=== PATIENT | female | born 1990 | race Caucasian/White ===

== ENCOUNTER 2023-01-21 19:41 | Outpatient (REF) | payer MEDICAID, SELFPAY | END 2023-01-21 19:42 | disposition home or self-care (01) | LOC: LAB 19:41 | PROVIDERS: Visit Provider Nurse Practitioner Primary Care | DX: J02.9 Acute pharyngitis, unspecified (principal) | CPT/HCPCS: 87070 ==

== ENCOUNTER 2023-03-09 23:37 | Emergency (ER) | payer MEDICAID, SELFPAY ==
[2023-03-09 23:52] VITALS: BP 129/102; PULSE 96; RESP 16; TEMP 36.9; O2SAT 98; BMI 47.2
[2023-03-09 23:57] VITALS: O2SAT 99
[2023-03-09 23:58] VITALS: BP 129/102; O2SAT 99
[2023-03-10] VITALS: O2SAT 98
--- NOTE | 2023-03-10 00:03 | ED.PSYCH1 ---
HPI - Psych General Chief Complaint: Psychiatric Symptoms Stated Complaint: SUCICIAL THOUGHTS Time Seen by Provider: 03/10/23 00:01 Source: Reports patient Mode of arrival: walk-in History of Present Illness HPI Narrative: past history of depression. Receives injection of Abilify for depression. last injection about one month ago. States her left her and took the kids last week. Has been suicidal since last week. Denies overdose of street drugs MD complaint: suicidal ideation and feels depressed Related Data Home Medications Medication Instructions Recorded Confirmed albuterol sulfate 90 mcg/actuation inhalation 03/10/23 aerosol inhaler aripiprazole 400 mg suspension, mg IM 03/10/23 extended rel.intramuscular syringe (Abilifsaad [place]) escitalopram oxalate 10 mg tablet mg 03/10/23 ipratropium 0.5 mg-albuterol 3 mg ml inhalation 03/10/23 (2.5 mg base)/3 mL nebulization soln lamotrigine 25 mg tablet mg 03/10/23 Allergies Allergy/AdvReac Type Severity Reaction Status Date / Time latex Allergy Verified 03/10/23 00:00 metronidazole [From Flagyl] Allergy Verified 03/10/23 00:00 vancomycin Allergy Verified 03/10/23 00:00 Review of Systems ROS Status of ROS 10 or more systems reviewed and unremarkable except as noted in history and below PFSH PFSH Social History Smoking status: Current every day smoker Exam Constitutional Vital Signs, click to edit/add: Last Vital Signs Temp 98.4 F 03/09/23 23:52 Pulse 110 H 03/10/23 00:11 Resp 16 03/10/23 00:11 BP 129/102 H 03/09/23 23:58 Pulse Ox 98 03/10/23 00:00 O2 Del Method Room Air 03/09/23 23:52 Common normals: average body habitus, oriented x3, no limitations, healthy appearing, alert and well nourished Eye Common normals: EOMs intact bilaterally and conjunctivae normal Respiratory Common normals: normal respiratory effort, no retractions and no use of accessory muscles Cardio Common normals: regular rate, regular rhythm, S1 normal heart sound and S2 normal heart sound GI Common normals: Normal to inspection, nondistended, normoactive bowel sounds present, soft to palpation and non-tender Extremity Common normals: normal to inspection and full ROM Neuro Common normals: oriented x3, CN's II-XII intact bilaterally, moves all extremities and no focal motor deficits Psych Mood and affect: depressed mood Course Vital Signs Vital signs: Vital Signs Temperature 98.4 F 03/09/23 23:52 Pulse Rate 96 H 03/09/23 23:52 Respiratory Rate 16 03/09/23 23:52 Blood Pressure 129/102 H 03/09/23 23:52 Pulse Oximetry 98 03/09/23 23:52 Oxygen Delivery Method Room Air 03/09/23 23:52 Temperature 98.4 F 03/09/23 23:52 Pulse Rate 110 H 03/10/23 00:11 Respiratory Rate 16 03/10/23 00:11 Blood Pressure 129/102 H 03/09/23 23:58 Pulse Oximetry 98 03/10/23 00:00 Oxygen Delivery Method Room Air 03/09/23 23:52 MDM - Psych MDM Narrative Medical decision making narrative: patient has past history of depression. Her left her last week. She presents with thoughts of suicide. No plan. She did talk to mental health and will plan voluntary admission to in patient psychiatry for depression with suicidal thoughts Lab Data Labs: Lab Results 03/10/23 03/10/23 Range/Units 00:02 00:20 WBC 14.6 H (4.0-11.0) 10^3/uL RBC 4.73 (4.20-5.40) 10^6/uL Hgb 13.9 (12.0-16.0) g/dL Hct 40.9 (36.0-48.0) % MCV 86.5 (81.0-99.0) fL MCH 29.4 (26.7-34.0) pg MCHC 34.0 (29.9-35.2) g/dL RDW 13.2 (11.0-15.0) % Plt Count 365 (150-450) 10^3/uL MPV 10.0 (9.5-13.5) fL Neut % (Auto) 61.3 (43.0-75.0) % Lymph % (Auto) 29.9 (20.5-60.0) % [place] % (Auto) 5.6 (1.7-12.0) % Eos % (Auto) 2.5 (0.9-7.0) % Baso % (Auto) 0.3 (0.2-2.0) % Neut # (Auto) 9.0 H (1.4-6.5) 10^3/uL Lymph # (Auto) 4.4 H (1.2-3.8) 10^3/uL [place] # (Auto) 0.8 (0.3-0.8) 10^3/uL Eos # (Auto) 0.4 (0.0-0.7) 10^3/uL Baso # (Auto) 0.1 (0.0-0.1) 10^3/uL Abs Immat Gran (auto) 0.06 H (0.00-0.03) 10^3/uL Imm/Tot Granulo (auto) 0.4 (0.0-0.5) % Sodium 141 (136-145) mmol/L Potassium 3.5 (3.5-5.1) mmol/L Chloride 104 (98-107) mmol/L Carbon Dioxide 28.5 (21.0-32.0) mmol/L Anion Gap 12.0 BUN 12.0 (7.0-18.0) mg/dL Creatinine 0.88 (0.55-1.02) mg/dL Est GFR ( Amer) >60 (>=60) Est GFR (Non-Af Amer) >60 (>=60) BUN/Creatinine Ratio 13.6 Glucose 108 H (74-106) mg/dL Calcium 8.7 (8.5-10.1) mg/dL Total Bilirubin 0.3 (0.2-1.0) mg/dL AST 13 L (15-37) U/L ALT 18 (14-59) U/L Alkaline Phosphatase 82 (46-116) U/L Total Protein 7.1 (6.4-8.2) g/dL Albumin 3.3 L (3.4-5.0) g/dL Globulin 3.8 g/dL Albumin/Globulin Ratio 0.9 Salicylates 2.8 (<=19.9) mg/dL Urine Opiates Screen Negative (NEGATIVE) Ur Buprenorphine Scrn Negative (NEGATIVE) Ur Oxycodone Screen Negative (NEGATIVE) Urine Methadone Screen Negative (NEGATIVE) Ur Propoxyphene Screen Negative (NEGATIVE) Acetaminophen <2.0 L (10.0-30.0) ug/mL Ur Barbiturates Screen Negative (NEGATIVE) U Tricyclic Antidepress Negative (NEGATIVE) Ur Phencyclidine Scrn Negative (NEGATIVE) Ur Amphetamines Screen Negative (NEGATIVE) U Methamphetamines Scrn Negative (NEGATIVE) U Benzodiazepines Scrn Negative (NEGATIVE) Urine Cocaine Screen Negative (NEGATIVE) U Cannabinoids Screen Negative (NEGATIVE) Ethanol Quant <3 mg/dL Discharge Plan Discharge Chief Complaint: Psychiatric Symptoms Clinical Impression: Suicidal ideation, Depression Patient Disposition: Xfer Psychiatric Hosp Discharge Location: [facility] Discharge location: [address] [place] [address] Discharge Date/Time: 03/10/23 02:53
--- NOTE | 2023-03-10 00:06 | ECG_ITS ---
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
[2023-03-10 00:11] VITALS: PULSE 110; RESP 16
[2023-03-10 00:13] VITALS: PULSE 112
[2023-03-10 00:32] LABS: Basophils Absolute Auto 0.1 10^3/uL (0.0-0.1); Basophils Percent Auto 0.3 % (0.2-2.0); Eosinophils Absolute Auto 0.4 10^3/uL (0.0-0.7); Eosinophils Percent Auto 2.5 % (0.9-7.0); Hematocrit 40.9 % (36.0-48.0); Hemoglobin 13.9 g/dL (12.0-16.0); Immature Granulocytes Abs Auto 0.06 10^3/uL (0.00-0.03); Immature Granulocytes Pct Auto 0.4 % (0.0-0.5); Lymphocytes Absolute Auto 4.4 10^3/uL (1.2-3.8); Lymphocytes Percent Auto 29.9 % (20.5-60.0); Mean Corpuscular Hemoglobin 29.4 pg (26.7-34.0); Mean Corpuscular Volume 86.5 fL (81.0-99.0); Monocytes Absolute Auto 0.8 10^3/uL (0.3-0.8); Monocytes Percent Auto 5.6 % (1.7-12.0); Neutrophils Percent Auto 61.3 % (43.0-75.0); Platelet Count 365 10^3/uL (150-450); Red Blood Count 4.73 10^6/uL (4.20-5.40); Red Cell Distribution Width 13.2 % (11.0-15.0); White Blood Count 14.6 10^3/uL (4.0-11.0)
[2023-03-10 01:03] LABS: Alanine Aminotransferase 18 U/L (14-59); Albumin Globulin Ratio 0.9; Albumin Level 3.3 g/dL (3.4-5.0); Alkaline Phosphatase 82 U/L (46-116); Aspartate Amino Transferase 13 U/L (15-37); BUN Creatinine Ratio 13.6; Bilirubin Total 0.3 mg/dL (0.2-1.0); Calcium 8.7 mg/dL (8.5-10.1); Carbon Dioxide 28.5 mmol/L (21.0-32.0); Chloride 104 mmol/L (98-107); Estimated GFR (African America >60 (>=60); Estimated GFR (Non-African Ame >60 (>=60); Globulin 3.8 g/dL; Glucose 108 mg/dL (74-106); Potassium 3.5 mmol/L (3.5-5.1); Sodium 141 mmol/L (136-145); Total Protein 7.1 g/dL (6.4-8.2)
[2023-03-10 01:05] LABS: Amphetamine Screen Urine NEGATIVE (NEGATIVE); Barbiturates Screen Urine NEGATIVE (NEGATIVE); Benzodiazepines Screen Urine NEGATIVE (NEGATIVE); Buprenorphine Screen Urine NEGATIVE (NEGATIVE); Cannabinoid Screen Urine NEGATIVE (NEGATIVE); Cocaine Screen Urine NEGATIVE (NEGATIVE); Methadone Screen Urine NEGATIVE (NEGATIVE); Methamphetamines Screen Urine NEGATIVE (NEGATIVE); Opiate Screen Urine NEGATIVE (NEGATIVE); Oxycodone Screen Urine NEGATIVE (NEGATIVE); Phencyclidine Screen Urine NEGATIVE (NEGATIVE); Tricyclic Antidepressant Urine NEGATIVE (NEGATIVE)
[2023-03-10 01:29] LABS: Salicylate 2.8 mg/dL (<=19.9)
[2023-03-10 01:30] LABS: Ethanol <3 mg/dL
[2023-03-10 02:25] LABS: Acetaminophen <2.0 ug/mL (10.0-30.0)
== END 2023-03-10 02:53 ==
PROVIDERS: Emergency Provider Internal Medicine; PCP Nurse Practitioner Primary Care
DX: R45.851 Suicidal ideations (principal); F32.A Depression, unspecified; Z79.899 Other long term (current) drug therapy; F17.210 Nicotine dependence, cigarettes, uncomplicated
CPT/HCPCS: 36415; 80053; 80179; 80307; 80320; 80329; 85025; 93005; 99285

== ENCOUNTER 2024-02-03 22:03 | Emergency (ER) | payer SELFPAY ==
[2024-02-03] VITALS (8 sets, daily range): BP systolic 156; BP diastolic 89; PULSE 102–117; TEMP 36.8; O2SAT 92–97; BMI 46.1
--- NOTE | 2024-02-03 22:17 | ED.URI1 ---
HPI - URI/Sore Throat General Chief Complaint: Upper Respiratory Infection Stated Complaint: Upper Respiratory Infection Time Seen by Provider: 02/03/24 22:17 Source: patient Limitations: no limitations History of Present Illness HPI Narrative: This 33-year-old female with a history of asthma and tobacco use presents for evaluation of cough with productive sputum. She has been using her DuoNeb treatments with mild clinical improvement. She states her symptoms started last weekend with the sore throat and bodyaches. She was exposed to COVID-19. She had a sore throat which has resolved and her body aches have mostly resolved but she still has pain in the right side of her chest with deep breathing. She also has a diagnosis of thoracic outlet syndrome on the right and states she is having pain in her right arm. She states she is mostly concerned about the pain in her right arm because she cannot sleep due to it. There is no injury or weakness. She has no abdominal pain. She denies the possibility of . She has not had fever. 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 She does typically wear a mask but has recently been exposed to many people that have had COVID-19 and other respiratory infections. Related Data Home Medications ?Medication ?Instructions ?Recorded ?Confirmed albuterol sulfate 90 mcg/actuation inhalation 03/10/23 aerosol inhaler ipratropium 0.5 mg-albuterol 3 mg ml inhalation 03/10/23 (2.5 mg base)/3 mL nebulization soln Allergies Allergy/AdvReac Type Severity Reaction Status Date / Time latex Allergy Unknown Verified 02/03/24 22:12 metronidazole [From Flagyl] Allergy Unknown Verified 02/03/24 22:12 levofloxacin AdvReac Unknown Verified 02/03/24 22:12 vancomycin AdvReac Unknown Verified 02/03/24 22:12 Review of Systems ROS Status of ROS 10 or more systems reviewed and unremarkable except as noted in history and below PFSH PFSH Social History Smoking status: Current every day smoker Little interest or pleasure in doing things: not at all Feeling down, depressed, or hopeless: not at all Exam Narrative Exam Narrative: Vital signs and Nursing Notes reviewed: Patient is afebrile, she is tachycardic with a pulse of 113, blood pressure is elevated 156/89, she is not hypoxic with pulse ox of 97% on room air General: Awake, alert, oriented, nontoxic but uncomfortable appearing overweight female, she has a harsh spasmodic cough otherwise is able to speak in complete sentences HEENT: Normocephalic atraumatic, mucous membranes are moist and pink, eyes are clear, normal conjunctiva, vision is grossly intact, posterior pharynx is normal in appearance. Neck: Supple, no meningeal signs, no anterior or posterior cervical lymphadenopathy Chest: Harsh bronchospastic cough, lungs have bilateral expiratory wheezing, there is no accessory muscle use, when the patient is not coughing she is able to speak in complete sentences, pulse ox is normal at 97% on room air CVS: Regular rate and rhythm S1-S2, no murmurs rubs or gallops, pulses are brisk and equal bilaterally ABD: Soft, nondistended, nontender, no rebound guarding or rigidity, bowel sounds are normal, no pulsatile masses appreciated Extremities: Moving all extremities, no lower extremity tenderness or swelling noted, negative Homans' sign, pulses are brisk and equal bilaterally, 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, fingers are warm and sensate, pulses are brisk and equal bilaterally Skin: Normal in appearance without rash,pallor, petechiae or purpura Neuro: No focal deficits Constitutional Vital Signs, click to edit/add: Last Vital Signs Temp 98.3 F 02/03/24 22:08 Pulse 94 H 02/04/24 01:15 Resp 13 02/04/24 01:15 BP 105/84 02/04/24 01:15 Pulse Ox 97 02/04/24 01:10 O2 Del Method Room Air 02/03/24 23:44 Course Vital Signs Vital signs: Vital Signs Temperature 98.3 F 02/03/24 22:08 Pulse Rate 113 H 02/03/24 22:08 Respiratory Rate 20 02/03/24 22:08 Blood Pressure 156/89 H 02/03/24 22:08 Pulse Oximetry 96 02/03/24 22:08 Oxygen Delivery Method Room Air 02/03/24 22:08 Temperature 98.3 F 02/03/24 22:08 Pulse Rate 94 H 02/04/24 01:15 Respiratory Rate 13 02/04/24 01:15 Blood Pressure 105/84 02/04/24 01:15 Pulse Oximetry 97 02/04/24 01:10 Oxygen Delivery Method Room Air 02/03/24 23:44 MDM - URI/Sore Throat MDM Narrative Medical decision making narrative: This 34-year-old female, smoker with a history of asthma and lung surgery due to what sounds like an empyema or other infectious process but not cancer presents for evaluation of shortness of breath with a harsh cough and inability to catch her breath at times. She has pain in the right side of her chest with deep breathing. Her symptoms started 4 to 5 days ago after she was exposed to COVID-19. She initially had sore throat and bodyaches. Her sore throat and bodyaches resolved but the infection seem to have settled in her chest. 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 She states she has been admitted multiple times for bronchitis with hypoxia and pneumonia. In the emergency department she was noted to have a harsh bronchospastic cough and expiratory wheezing. She was given a DuoNeb, Toradol, and IV Solu-Medrol with clinical improvement. She was also given IV fluids. Cardiac workup was negative for acute findings. Her D-dimer and troponin were both normal. Her COVID-19 test is negative. Chest x-ray was negative for acute findings. On reevaluation she stated she was feeling remarkably better. She was discharged home with prescription for steroids and a Zithromax Z-RAQUEL to prevent her from getting a worsening respiratory infection or noncommitted and pneumonia. She does have a nebulizer and nebulizer medications at home and does not require refills on these medications. She was encouraged to quit smoking. Lab Data Labs: Lab Results 02/03/24 02/03/24 Range/Units 22:15 23:20 WBC 11.6 H (4.0-11.0) 10^3/uL RBC 4.51 (4.20-5.40) 10^6/uL Hgb 12.8 (12.0-16.0) g/dL Hct 38.8 (36.0-48.0) % MCV 86.0 (81.0-99.0) fL MCH 28.4 (26.7-34.0) pg MCHC 33.0 (29.9-35.2) g/dL RDW 13.2 (11.0-15.0) % Plt Count 333 (150-450) 10^3/uL MPV 10.0 (9.5-13.5) fL Neut % (Auto) 65.0 (43.0-75.0) % Lymph % (Auto) 22.4 (20.5-60.0) % [place] % (Auto) 4.8 (1.7-12.0) % Eos % (Auto) 6.8 (0.9-7.0) % Baso % (Auto) 0.7 (0.2-2.0) % Neut # (Auto) 7.5 H (1.4-6.5) 10^3/uL Lymph # (Auto) 2.6 (1.2-3.8) 10^3/uL [place] # (Auto) 0.6 (0.3-0.8) 10^3/uL Eos # (Auto) 0.8 H (0.0-0.7) 10^3/uL Baso # (Auto) 0.1 (0.0-0.1) 10^3/uL Abs Immat Gran (auto) 0.03 (0.00-0.03) 10^3/uL Imm/Tot Granulo (auto) 0.3 (0.0-0.5) % D-Dimer 0.42 (<=0.59) mg/L FEU Sodium 136 (136-145) mmol/L Potassium 3.3 L (3.5-5.1) mmol/L Chloride 101 (98-107) mmol/L Carbon Dioxide 29.8 (21.0-32.0) mmol/L Anion Gap 8.5 BUN 10.0 (7.0-18.0) mg/dL Creatinine 0.73 (0.55-1.02) mg/dL Est GFR ( Amer) >60 (>=60) Est GFR (Non-Af Amer) >60 (>=60) BUN/Creatinine Ratio 13.7 Glucose 89 (74-106) mg/dL Calcium 8.7 (8.5-10.1) mg/dL Total Bilirubin 0.3 (0.2-1.0) mg/dL AST 18 (15-37) U/L ALT 22 (14-59) U/L Alkaline Phosphatase 91 (46-116) U/L Troponin I High Sens <4.0 L (4.0-51.3) pg/mL Total Protein 7.6 (6.4-8.2) g/dL Albumin 3.5 (3.4-5.0) g/dL Globulin 4.1 g/dL Albumin/Globulin Ratio 0.9 SARS-CoV-2 Ag (CV2AG) Negative (NEGATIVE) ECG Data Attestation: I personally reviewed and interpreted this ECG as follows: (EKG interpretation sinus rhythm at 92 bpm, normal axis, normal intervals, no acute ST segment elevation or T wave inversion) Smoking Cessation Time spent discussing smoking cessation with patient: 3 to 10 minutes Patient Acknowledges Need for Cessation: Yes Discharge Plan Discharge Chief Complaint: Upper Respiratory Infection Clinical Impression: Viral upper respiratory tract infection with cough Patient Disposition: Home, Self-Care Time of Disposition Decision: 01:08 Condition: Good Prescriptions / Home Meds: No Action ipratropium-albuterol 0.5 mg-3 mg(2.5 mg base)/3 mL solution for nebulization INHALATION albuterol sulfate 90 mcg/actuation HFA aerosol inhaler INHALATION Print Language: Yoruba Instructions: Asthma (ED), Upper Respiratory Infection (ED) Referrals: [facility] [Primary Care Provider] - 1 week Discharge Date/Time: 02/04/24 01:20
--- OUTSIDE RECORDS SUMMARY | 2024-02-03 22:20 | XMS_ITS | CCD ---
Author Organization [facility] ion Partnership [facility] Care Team Providers Care Gaming Dealer Name Role Phone VLADIMIR ESTRADA Unavailable Unavailab TRERY Costa Unavailable Unavailable PHYSICIAN, DEFAULT Unavailable Unavailable PHYSICIAN, DEFAULT Unavailable Unavailable Unavailable Primary Care Provider Unavailjerry e Radha Vang MD Unavailable Qasim Daley MD Primary Care Provider [facility] Primary Care Unava ilable DANIS EMERY Consulting Unavailable DANIS EMERY Admitting Unavailable DANIS EMERY Attending Unavailable Robert Viera Consulting Unavailable BLAISE, DR LOREDO Primary Care Unavailable BLAISE, DR LOREDO Admitting Unavailable LAKE, ZAIDA Consulting Unavailable BLAISE, DR LOREDO Attending Unavailable BLAISE, DR LOREDO Admitting Unavailable [facility] Care Unava ilable BLAISE, DR LOREDO Attending Unavailable BLAISE, DR LOREDO Admitting Unavailable [facility] Primary Care Unava ilable BLAISE, DR LOREDO Attending Unavailable BLAISE, DR LOREDO Consulting Unavailable BLAISE, DR LOREDO Primary Care Unavailable BLAISE, DR LOREDO Admitting Unavailable BLAISE, DR LOREDO Attending Unavailable BLAISE, DR LOREDO Consulting Unavailable BLAISE, DR LOREDO Admitting Unavailable [facility] Primary Care Unavailable BLAISE, DR LOREDO Attending Unavailable BERNADETTE NULL Attending Unavailable BERNADETTE NULL Consulting Unavailable BERNADETTE NULL Admitting Unavailable [facility] Primary Care Unava ilable Unavailable Primary Care Provider Unavailabl e NO FAMILY, PHYSICIAN Primary Care Provider Unava ilable MD Jus Santos Admit Provider [phone] MD Jus Santos Attending Provider Radha Vang MD Unavailable Qasim Daley MD Primary Care Provider [phone] RADHA VANG Attending Unavailable QASIM DALEY Primary Care Unavailable Bessy Medina Unavailable Hardy Jones Attending Unavailab le NO FAMILY, PHYSICIAN Primary Care Unavailable Jus Santos Admitting Unavailable Hardy Jones Admitting Unavailab le Hardy Jones Attending Unavailab le NO FAMILY, PHYSICIAN Primary Care Unavailable SERVICES, [facility] Primary Care Unava ilable KIAH PRO Attending Unavailab le NEVERAUSKAS, KIAH Bob Attending Unavailab le NEVERAUSADI, KIAH Bob Referring Unavailab le SERVICES, [facility] Care Unava ilable SERVICES, [facility] Primary Care Unava ilable PAREKH, ALISON Attending Unavailable SATISH ESCALANTE Admitting Unavailable SERVICES, [facility] Primary Care Unava ilable YULISA TOLEDO Attending Unavailable YULISA TOLEDO Attending Unavailable YULISA TOLEDO Referring Unavailable SERVICES, [facility] Primary Care Unava ilable SERVICES, [facility] Primary Care Unava ilable PAREKH, ALISON Attending Unavailable PAREKH, ALISON Referring Unavailable SERVICES, [facility] Care Unava ilable SATISH ESCALANTE Attending Unavailable SATISH ESCALANTE Referring Unavailable SERVICES, [facility] Care Unava ilable Allergies Allergy Classification Reported Allergen(s) Allergy Type Date of Onset Reaction(s) Facility Glycopeptides (antibiotic) (1 source) Vancomycin; Translations: [VANCOMYCIN] Drug Allergy 03-09-20 [facility] Latex (1 source) Latex; Translations: [LATEX] Substance Allergy 05-05-20 [facility] Nitroimidazoles (antibiotic) (1 source) metroNIDAZOLE; Translations: [METRONIDAZOLE] Drug Allergy 03-02-20 [facility] Quinolones (antibiotic) (1 source) levoFLOXacin; Translations: [LEVOFLOXACIN] Drug Allergy 04-04-20 [facility] (20 sources) Latex; Translations: [LATEX] Drug Allergy 01-20-20 17 [facility] (18 sources) levoFLOXacin; Translations: [LEVOFLOXACIN] Drug Allergy 04-04-20 Other: See Comments [facility] (20 sources) metroNIDAZOLE; Translations: [METRONIDAZOLE] Drug Allergy 12-03-19 15 Vomiting [facility] (2 sources) Latex Drug allergy (disorder) 01-20-20 [address] [facility] (1 source) levoFLOXacin Drug Allergy [facility] (2 sources) metroNIDAZOLE Drug Allergy 12-03-[address] [facility] (5 sources) Vancomycin; Translations: [VANCOMYCIN] Drug Allergy 10-20-19 22 Hives [facility] (4 sources) Adhesive Tape-Silicones; Translations: [ADHESIVE TAPE-SILICONES] Propensity to adverse reactions to drug 10-20-19 Other: See Comments [facility] (2 sources) raspberry extract; Translations: [raspberry] Drug Allergy 03-10-20 Unknown Reaction [facility] (2 sources) kiwi; Translations: [kiwi] Allergy to substance 03-10-20 Unknown Reaction [facility] (1 source) Latex Drug allergy (disorder) 05-27-19 [facility] (1 source) metroNIDAZOLE Drug Allergy 05-27-19 [facility] (1 source) Vancomycin Drug Allergy 05-27-19 [facility] Repository Medications Current Medications Medication Drug Class(es) Dates Sig (Normalized) Sig (Original) [id number] 200 actuat albuterol 0.09 mg/actuat metered dose inhaler (20 sources) beta2-Adrenergic Agonist Start: 03-10-2023 take 1 puff(s) by inhalation every six hours Albuterol Sulfate Active 2 PUFF INHALATION Every 6 hours March 10, 2023 12:00am Start: 07-28-2019 End: 06-16-2023 take 2 puff(s) by inhalation every six hours as needed for wheezing albuterol HFA (PROVENTIL HFA, VENTOLIN HFA) 90 mcg/actuation inhaler Inhale 2 Puffs as instructed every 6 hours as needed for wheezing/shortness of breath. 1 Each 3 03/18/2023 06/16/2023 Active Ventolin HFA Act sierra Comment on above: Inhale 2 Puffs as in structed every 6 hours as needed. Inhale 2 Puffs as in structed every 6 hours as needed for wheezing/shortness of breath. albuterol 0.833 mg/ml / ipratropium bromide 0.167 mg/ml inhalation solution (14 sources) Anticholinergic, beta2-Adrenergic Agonist Start: End: take 3 mL by inhalation every six hours as needed ipratropium-albute rol (DUONEB) 0.5 mg-3 mg(2.5 mg base)/3 mL nebu Inhale 3 mL as instructed every 6 hours as needed for wheezing/shortness of breath. 270 mL 3 03/18/2023 06/16/2023 Active Start: 07-13-2021 ipratropium-al buterol (DUONEB) 0.5 mg-3 mg(2.5 mg base)/3 mL nebu USE 1 AMPULE IN NEBULIZER 4 TIMES DAILY 0 07/13/2021 Suspended Comment on above: USE 1 AMPULE IN NEBU LIZER 4 TIMES DAILY Inhale 3 mL as instr ucted every 6 hours as needed for wheezing/shortness of breath. ARIPiprazole 400 mg extended release prefilled syringe (3 sources) Atypical Antipsychotic Start: inject 400 mg by intramuscular injection every month Aripiprazole (Abilifsaad Maintena) 400 mg suspension,extended rel syring Active 400 MG IM every month March 10, 2023 12:00am Comment on above: as directed Intramus cular Once a month for 30 days Budesonide / formoterol (20 sources) Corticosteroid, beta2-Adrenergic Agonist Start: End: take 2 puff(s) by inhalation twice daily budesonide-formoter ol (SYMBICORT) 160-4.5 mcg/actuation inhaler Inhale 2 Puffs as instructed two times a day. 11 g 11 03/18/2023 04/17/2023 Active Start: 03-18-2023 End: 03-18-2023 take 2 puff(s) by inhalation twice daily budesonide-formoterol (SYMBICORT) 160-4.5 mcg/actuation inhaler Inhale 2 Puffs as instructed two times a day. 11 g 2 03/18/2023 03/18/2023 Discontinued Start: 03-10-2023 take 1 puff(s) by in halation twice daily Budesonide-Formoterol (Symbicort) 160-4.5 mcg/actuation HFA aerosol inhaler Active 2 PUFF INHALATION Twice daily March 10, 2023 12:00am Start: 04-05-2019 End: 03-18-2023 take 2 puff(s) by inhalation twice daily budesonide-formoterol (SYMBICORT) 160-4.5 mcg/actuation inhaler Inhale 2 Puffs as instructed twice daily. 0 04/05/2019 03/18/2023 Discontinued Start: 04-05-2019 take 2 puff(s) by in halation twice daily budesonide-formoterol (SYMBICORT) 160-4.5 mcg/actuation inhaler Inhale 2 Puffs as instructed twice daily. 0 04/05/2019 Active Start: 04-05-2019 take 2 puff(s) by in halation twice daily budesonide-formoterol (SYMBICORT) 160-4.5 mcg/actuation inhaler Inhale 2 Puffs as instructed twice daily. 0 04/05/2019 Suspended Start: 04-05-2019 budesonide-for moterol (SYMBICORT) 160-4.5 mcg/actuation inhaler Inhale 2 Puffs as instructed. 0 04/05/2019 Active Symbicort 160-4. 5 MCG/ACT Inhalation for 30 Days Active Comment on above: Inhale 2 Puffs as in structed. Inhale 2 Puffs as in structed twice daily. Inhale 2 Puffs as in structed two times a day. cephalexin 500 mg oral capsule (1 source) Cephalosporin Antibacterial Start: 024 take 1 capsule by mouth every eight hours Cephalexin 500 MG 1 capsule Orally every 8 hrs for 5 days May, Active cholecalciferol 0.025 mg oral tablet (2 sources) Vitamin D Start: 023 take 50 ug by mouth once daily Cholecalciferol (Vitamin D3) Active 50 MCG PO Daily 60 March 12, 2023 12:00am loperamide hydrochloride 2 mg oral capsule (6 sources) Opioid Agonist Start: 022 End: take 1 capsule by mouth four times daily as needed loperamide (IMODIUM) 2 mg cap(s) TAKE 1 CAPSULE BY MOUTH 4 TIMES DAILY NEEDED 0 06/27/2021 09/14/2021 Discontinued (Discontinued by Patient) Comment on above: TAKE 1 CAPSULE BY MO [facility] 4 TIMES DAILY NEEDED ondansetron 4 mg oral tablet (6 sources) Serotonin-3 Receptor Antagonist End: take 1 tablet by mouth every eight hours as needed ondansetron (ZOFRAN) 4 mg tablet Take 4 mg by mouth three times daily as needed. 0 09/14/2021 Discontinued (Discontinued by Patient) Comment on above: Take 4 mg by mouth t hree times daily as needed. oxyCODONE hydrochloride 5 mg oral tablet (3 sources) Opioid Agonist Start: End: take 1 tablet by mouth every six hours as needed for pain oxyCODONE IR (ROXICODONE) 5 mg immediate release tablet Indications: Acute post-operative pain Take 1 tablet by mouth every 6 hours as needed for pain for up to 7 days. 28 tablet 0 09/22/2021 09/29/2021 Active Comment on above: Take 1 tablet by [facility] every 6 hours as needed for pain for up to 7 days. predniSONE 50 mg oral tablet (6 sources) Start: End: predniSONE (DELTASONE) 50 mg Take 50 mg by mouth. 0 12/28/2020 09/14/2021 Discontinued (Discontinued by Patient) Comment on above: Take 50 mg by mouth. Completed/Discontinued Medications Medication Drug Class(es) Dates Sig (Normalized) Sig (Original) acetaminophen 500 mg oral tablet (9 sources) Start: 09-19-2021 End: 03-18-2023 take 2 tablets by mouth every six hours acetaminophen (TYLENOL) 500 mg tablet Take 2 tablets by mouth every 6 hours. 0 09/19/2021 03/18/2023 Discontinued take 2 tablets by mo [facility] every six hours as needed acetaminophen (TYLENOL) 325 mg tablet Ta ke 650 mg by mouth every 6 hours as needed. 0 Active Comment on above: Take 650 mg by mouth every 6 hours as needed. Take 2 tablets by mo ut every 6 hours. aspirin/acetaminophen/ caffeine (EXCEDRIN MIGRAINE ORAL) (9 sources) End: 03-18-2023 aspirin/acetaminophen/caff eine (EXCEDRIN MIGRAINE ORAL) Take 1 tablet by mouth as needed (for migraine). 0 03/18/2023 Discontinued aspirin/acetamin ophen/caffeine (EXCEDRIN MIGRAINE ORAL) Take 1 tablet by mouth as needed (for migraine). 0 Active aspirin/acetamin ophen/caffeine (EXCEDRIN MIGRAINE ORAL) Take 1 tablet by mouth as needed (for migraine). 0 Suspended aspirin/acetamin ophen/caffeine (EXCEDRIN MIGRAINE ORAL) Take by mouth as needed. 0 Active Comment on above: Take by mouth as nee ded. Take 1 tablet by aiden th as needed (for migraine). citalopram 10 mg oral tablet (3 sources) Serotonin Reuptake Inhibitor Start: take 1 tablet by mouth once daily in the morning citalopram hydrobromide (CELEXA) 10 mg tablet TAKE 1 TABLET BY MOUTH EVERY DAY IN THE MORNING FOR 15 DAYS 0 03/12/2023 Active Comment on above: TAKE 1 TABLET BY AIDEN TH EVERY DAY IN THE MORNING FOR 15 DAYS [id number] 0.3 ml EPINEPHrine 1 mg/ml auto-injector (17 sources) alpha-Adrenergic Agonist, beta-Adrenergic Agonist, Catecholamine Start: End: EPINEPHrine (EPIPEN) 0.3 mg/0.3 mL auto-injector Inject 0.3 mg intramuscularly as needed (allergic reaction). 0 04/13/2019 03/18/2023 Discontinued Comment on above: Inject 0.3 mg intram uscularly at bedtime as needed. Inject 0.3 mg intram uscularly as needed (allergic reaction). famotidine 10 mg oral tablet (9 sources) Histamine-2 Receptor Antagonist Start: End: famotidine (PEPCID) 10 mg tablet 20 mg. 0 04/01/2020 09/14/2021 Discontinued (Discontinued by Patient) Comment on above: 20 mg. formoterol / Mometasone (1 source) Corticosteroid, beta2-Adrenergic Agonist Dulera Not-Taking/MI N hydrOXYzine pamoate 50 mg oral capsule (3 sources) Antihistamine Start: take 1 capsule by mouth every six hours as needed for anxiety hydrOXYzine pamoate (VISTARIL) 50 mg capsule TAKE 1 CAPSULE BY MOUTH EVERY 6 HOURS NEEDED FOR ANXIETY FOR 15 DAYS 0 03/12/2023 Active Comment on above: TAKE 1 CAPSULE BY MO UTH EVERY 6 HOURS NEEDED FOR ANXIETY FOR 15 DAYS ibuprofen 200 mg oral tablet (9 sources) Nonsteroidal Anti-inflammatory Drug End: take 1 tablet by mouth every six hours as needed ibuprofen (ADVIL) 200 mg tablet Take 200 mg by mouth every 6 hours as needed for pain. 0 03/18/2023 Discontinued Comment on above: Take 200 mg by mouth every 6 hours as needed. Take 200 mg by mouth every 6 hours as needed for pain. lamoTRIgine 25 mg oral tablet (3 sources) Mood Stabilizer, Anti-epileptic Agent Start: take 1 tablet by mouth once daily lamoTRIgine (LAMICTAL) 25 mg tablet TAKE 1 TABLET BY MOUTH EVERY DAY FOR 15 DAYS 0 03/12/2023 Active Comment on above: TAKE 1 TABLET BY AIDEN TH EVERY DAY FOR 15 DAYS metoprolol tartrate 25 mg oral tablet (7 sources) beta-Adrenergic Mikaela Start: End: take 1 tablet by mouth every twelve hours metoprolol tartrate, short acting, (LOPRESSOR) 25 mg tablet Take 1/2 tablet by mouth every 12 hours. 30 tablet 0 09/19/2021 03/18/2023 Discontinued Comment on above: Take 1/2 tablet by m out every 12 hours. Myzuqpcs-Zf-Uga-Fe- FA tab (9 sources) End: take 1 tablet by mouth once Otyeudyk-Tx-Svr-Fe-FA tab Take 1 tablet by mouth. 0 09/14/2021 Discontinued (Discontinued by Patient) take 1 tablet by mouth once Pren atal Ryufttbh-Bg-Zbq-Fe-FA tab Take 1 tablet by mouth. 0 Active Comment on above: Take 1 tablet by aiden th. promethazine hydrochloride 12.5 mg oral tablet (9 sources) Phenothiazine End: take 1 tablet by mouth every eight hours as needed promethazine (PHENERGAN) 12.5 mg tablet Take 12.5 mg by mouth three times daily as needed. 0 09/14/2021 Discontinued (Discontinued by Patient) Comment on above: Take 12.5 mg by mout h three times daily as needed. tiotropium 0.018 mg inhalation powder (17 sources) Anticholinergic Start: End: take 1 capsule by inhalation once daily tiotropium (SPIRIVA WITH HANDIHALER) 18 mcg inhalation capsule Inhale 1 capsule as instructed once daily. Use with HandiHaler. 30 capsule 3 04/04/2020 03/18/2023 Discontinued Comment on above: Inhale 1 capsule as instructed once daily. Use with HandiHaler. traMADol hydrochloride 50 mg oral tablet (4 sources) Opioid Agonist Start: End: take 1 tablet by mouth every six hours as needed for pain traMADol (ULTRAM) 50 mg tablet Indications: Acute post-operative pain Take 1 tablet by mouth every 6 hours as needed for pain for up to 7 days. 28 tablet 0 09/19/2021 09/22/2021 Discontinued (Side Effects) Comment on above: Take 1 tablet by aiden th every 6 hours as needed for pain for up to 7 days. traZODone hydrochloride 50 mg oral tablet (3 sources) Serotonin Reuptake Inhibitor Start: take 1 tablet by mouth once daily at bedtime as needed traZODone (DESYREL) 50 mg tablet TAKE 1 TABLET BY MOUTH EVERY DAY AT BEDTIME NEEDED FOR INSOMNIA FOR 15 DAYS 0 03/12/2023 Active Comment on above: TAKE 1 TABLET BY AIDEN TH EVERY DAY AT BEDTIME NEEDED FOR INSOMNIA FOR 15 DAYS Problems Active Problems Problem Classification Problem Date Documented Date Episodic/Chronic Acute bronchitis (2 sources) Acute bronchitis, unspecified; Translations: [ACUTE BRONCHITIS UNSPECIFIED] Onset: 12-29-2020 Episodic Allergic reactions (4 sources) Unspecified contact dermatitis, unspecified cause; Translations: [UNS CONTACT DERMATITIS UNS CAUSE] Onset: 09-21-2021 Episodic Anxiety disorders (10 sources) Posttraumatic stress disorder; Translations: [Post-traumatic stress disorder, unspecified] Onset: 09-12-2021 Chronic Asthma (15 sources) Uncomplicated asthma; Translations: [Unspecified asthma, uncomplicated] Onset: 02-06-2019 Chronic Esophageal disorders (2 sources) Gastroesophageal reflux disease; Translations: [GERD [Gastroesophageal reflux disease]] Onset: 09-06-2023 Chronic Headache; including migraine (10 sources) Migraine; Translations: [Migraine, unspecified, not intractable, without status migrainosus] Onset: 09-12-2021 Chronic Malignant neoplasm without specification of site (1 source) Primary malignant neoplasm; Translations: [Malignant (primary) neoplasm, unspecified] 08-13-2021 Chronic Mood disorders (7 sources) Bipolar I disorder; Translations: [Bipolar disorder, unspecified] Onset: 03-10-2023 Chronic Nonspecific chest pain (3 sources) Chest pain, unspecified; Translations: [Chest pain] Onset: 09-06-2023 Episodic Other aftercare (1 source) Other termite control servicer (current) drug therapy; Translations: [OTH WELT SEWER CURRENT DRUG THERAPY] Onset: 09-24-2021 Episodic Other lower respiratory disease (1 source) Pulmonary granuloma; Translations: [Pulmonary fibrosis, unspecified] 03-18-2023 Chronic Other lower respiratory disease (20 sources) Nodule of lung; Translations: [Solitary pulmonary nodule] Onset: 08-22-2021 Episodic Other lower respiratory disease (1 source) Multiple nodules of lung; Translations: [Other nonspecific abnormal finding of lung field] 03-18-2023 Episodic Other lower respiratory disease (1 source) Shortness of breath; Translations: [Shortness of breath] Onset: 11-05-2023 Episodic Other lower respiratory disease (1 source) Cough Onset: 11-05-2023 Episodic Other nervous system disorders (2 sources) Acute postoperative pain; Translations: [Other acute postprocedural pain] Episodic Other nutritional; endocrine; and metabolic disorders (1 source) Severe obesity; Translations: [Morbid (severe) obesity due to excess calories] Chronic Other nutritional; endocrine; and metabolic disorders (2 sources) Body mass index 40+ - severely obese; Translations: [Body mass index (BMI) 50.0-59.9, adult] Chronic Other nutritional; endocrine; and metabolic disorders (9 sources) Obesity; Translations: [Obesity, unspecified] Onset: 09-12-2021 09-12-2021 Chronic Otitis media and related conditions (1 source) Otitis media, unspecified, right ear; Translations: [Otitis media, unspecified, right ear] Onset: 11-13-2023 Episodic Pneumonia (except that caused by tuberculosis or sexually transmitted disease) (1 source) Pneumonia, unspecified organism; Translations: [Pneumonia, unspecified organism] Onset: 11-05-2023 Episodic Residual codes; unclassified (1 source) Other specified postprocedural states; Translations: [OTH SPECIFIED POSTPROCEDURAL STATES] Onset: 09-24-2021 Episodic Residual codes; unclassified (1 source) Patient noncompliance - general; Translations: [Patient non adherence] 03-18-2023 Episodic Screening and history of mental health and substance abuse codes (2 sources) Ex-smoker; Translations: [Personal history of nicotine dependence] Onset: 09-24-2021 Episodic Skin and subcutaneous tissue infections (1 source) Cellulitis of right finger Episodic Substance-related disorders (11 sources) Smoker; Translations: [Nicotine dependence, unspecified, uncomplicated] Onset: 12-29-2020 Chronic Suicide and intentional self-inflicted injury (2 sources) Suicidal thoughts; Translations: [Suicidal ideations] 03-10-2023 Episodic Unclassified (1 source) Unknown / UNK(Unknown) Onset: 04-03-2017 Unclassified (1 source) CONTACT W/AND (SUSP) EXPOS COVID-19; Translations: [CONTACT W/AND (SUSP) EXPOS COVID-19] Onset: 12-29-2020 Unclassified (1 source) Earache Onset: 11-13-2023 Past or Other Problems Problem Classification Problem Date Documented Da te Episodic/Chronic Abdominal pain (2 sources) Pelvic and perineal pain; Translations: [Abdominal pain] Onset: 06-24-2023 Episodic Other lower respiratory disease (1 source) Dyspnea Onset: 04-03-2017 Episodic Other lower respiratory disease (3 sources) Cough; Translations: [COUGH] Onset: 12-28-2020 Episodic Results Test Name Value Interpretation Reference Range Facility XR CHEST 2 VWSon 11-05-2023 XR CHEST 2 VWS XR CHEST 2 VWS Clinical history: Cough. Comparisons: 01/21/2023 through 09/06/2023. Findings: 2 views of the chest obtained. Heart size and pulmonary vasculature appear within normal limits. Linear parenchymal scarring with associated volume loss again noted within the inferior lingula and anterior aspect of the left lower lobe. There is now some obscuration of the left heart border and superimposed atelectasis or airspace disease not excluded. No pleural effusion nor pneumothorax. Right lung remains clear and well expanded. IMPRESSION: 1. Suspect small area of atelectasis or consolidation superimposed upon chronic pleural/parenchymal scarring within the inferior lingula and anterior aspect of the left lower lobe. Clinical correlation and follow-up to resolution recommended Finalized by Inga Silveira MD on 11/05/2023 8:09 AM Normal [facility] ISMAEL FECAL OCCULT BLDon 09-06 Hemoglobin.gastrointe stinal Ql (Stl) Negative Normal NEG [facility] Comment on above: Performed By: #### 2 106-3 #### [facility] ([id number]) [address] [place] [id number] CBC AND AUTO DIFFon 09-06-19 ABSOLUTE BASOPHIL 0.1 X10E9/L Normal 0.0-0.2 [facility] Comment on above: Performed By: #### C LEIGHTON, 26431-1, [facility], 1985-09, 53650-2 #### [facility] ([id number]) [address] [place] [address] ABSOLUTE NEUTROPHIL 8.8 X10E9/L High 1.5-6.6 [facility] Comment on above: Performed By: #### C LEIGHTON, 95073-8, [facility], 1985-09, 04339-7 #### [facility] ([id number]) [address] [place] [address] Basophils/100 WBC (Bld) 0.6 % Normal [facility] Comment on above: Performed By: #### C LEIGHTON, 06551-1, [facility], 1985-09, 96029-6 #### [facility] ([id number]) [address] [place] [address]2006 Eosinophils (Bld) [#/Vol] 0.7 10*3/uL High 0.0-0.4 [facility] Comment on above: Performed By: #### C LEIGHTON, [id number], [facility], 1985-09, 61777-1 #### [facility] ([id number]) [address] [place] [address] Eosinophils/100 WBC (Bld) 4.9 % Normal [facility] Comment on above: Performed By: #### Patrizia MANZANARES, , [facility], 1985-09, 32297-0 #### [facility] ([id number]) [address] [place] [address]012 Erythrocyte distribution width (RBC) [Ratio] 13.0 % Normal 11.5-15.0 [facility] Comment on above: Performed By: #### Patrizia MANZANARES, , [facility], 1985-09, 12703-2 #### [facility] ([id number]) [address] [place] [address] Hematocrit (Bld) [Volume fraction] 39.0 % Normal 35-47 [facility] Comment on above: Performed By: #### Patrizia MANZANARES, , [facility], 1985-09, 81586-2 #### [facility] ([id number]) [address] [place] [address] 86003 Hemoglobin (Bld) [Mass/Vol] 13.2 g/dL Normal 11.7-15.5 [facility] Comment on above: Performed By: #### Patrizia MANZANARES, , [facility], 1985-09, 41318-1 #### [facility] ([id number]) [address] [place] [address]25 Lymphocytes (Bld) [#/Vol] 3.4 10*3/uL Normal 1.0-3.5 [facility] Comment on above: Performed By: #### Patrizia MANZANARES, , CMP, 1987-09, 38145-2 #### [facility] ([id number]) [address] [place] [address] 03778 Lymphocytes/100 WBC (Bld) 24.4 % Normal [facility] Comment on above: Performed By: #### Patrizia MANZANARES, , CMP, 1987-09, #### [facility] ([id number]) [address] [place] [address] 15627 MCH (RBC) [Entitic mass] 28.9 pg Normal 27-34 [facility] Comment on above: Performed By: #### Patrizia MANZANARES, , [facility], 1987-09, #### [facility] ([id number]) [address] [place] [address] 23053 MCHC (RBC) [Mass/Vol] 33.7 g/dL Normal 32-36 [facility] Comment on above: Performed By: #### Patrizia MANZANARES, , [facility], 1987-09, #### [facility] ([id number]) [address] [place] [address] 69805 MCV (RBC) [Entitic vol] 86 fL Normal 80-100 [facility] Comment on above: Performed By: #### Patrizia MANZANARES, , [facility], 1987-09, 46225-0 #### [facility] ([id number]) [address] [place] [address] 73810 Monocytes (Bld) [#/Vol] 0.9 10*3/uL Normal 0-0.9 [facility] Comment on above: Performed By: #### Patrizia MANZANARES, , [facility], 1987-09, 35077-7 #### [facility] ([id number]) [address] [place] [address] 66484 Monocytes/100 WBC (Bld) 6.3 % Normal [facility] Comment on above: Performed By: #### Patrizia MANZANARES, , [facility], 1987-09, #### [facility] ([id number]) [address] [place] [address] 19844 Neutrophils/100 WBC (Bld) 63.8 % Normal [facility] Comment on above: Performed By: #### Patirzia BCA, 39402-3, CMP, 1987-09, 65838-9 #### [facility] ([id number]) [address] [place] [address] 64874 Platelet mean volume (Bld) [Entitic vol] 8.6 fL Normal 7-12 [facility] Comment on above: Performed By: #### Patrizia MANZANARES, 10720-2, CMP, 1987-09, 96565-7 #### [facility] ([id number]) [address] [place] [address] 64568 Platelets (Bld) [#/Vol] 332 10*3/uL Normal 150-450 [facility] Comment on above: Performed By: #### Patrizia MANZANARES, , CMP, 1987-09, 63460-8 #### [facility] ([id number]) [address] [place] [address] 19463 RBC COUNT 4.56 X10E12/L Normal 3.80-5.20 [facility] Comment on above: Performed By: #### Patrizia MANZANARES, , CMP, 1987-09, 79028-6 #### [facility] ([id number]) [address] [place] [address] 27520 WBC (Bld) [#/Vol] 13.8 10*3/uL High 4.0-11.0 [facility] Comment on above: Performed By: #### Patrizia BCA, 09506-5, CMP, 1987-09, 64159-2 #### [facility] ([id number]) [address] [place] [address] 53536 COMPREHENSIVE METABOLIC PANE Buck 09-06-2023 Albumin [Mass/Vol] 3.7 g/dL Normal 3.2-5.3 [facility] Comment on above: Performed By: #### Patrizia MANZANARES, 98779-1, CMP, 1987-09, 63347-0 #### [facility] ([id number]) [address] [place] [address] 09701 ALP [Catalytic activity/Vol] 99 U/L Normal 39-130 [facility] Comment on above: Performed By: #### C BCA, 16440-4, CMP, 1987-09, 59758-5 #### [facility] ([id number]) [address] [place] [address] 37395 ALT [Catalytic activity/Vol] 17 U/L Normal 0-31 [facility] Comment on above: Performed By: #### C BCA, 17303-7, CMP, 1987-09, 22974-9 #### [facility] ([id number]) [address] [place] [address] 33831 Anion gap [Moles/Vol] 9 mmol/L Normal 5-15 [facility] Comment on above: Performed By: #### C BCA, 81340-1, CMP, 1987-09, 26488-1 #### [facility] ([id number]) [address] [place] [address] 35139 AST [Catalytic activity/Vol] 18 U/L Normal 0-41 [facility] Comment on above: Performed By: #### C BCA, 53769-4, CMP, 1987-09, 13587-6 #### [facility] ([id number]) [address] [place] [address] 78608 Bilirubin [Mass/Vol] 0.2 mg/dL Low 0.3-1.2 [facility] Comment on above: Performed By: #### C BCA, 81952-7, CMP, 1987-09, 61468-5 #### [facility] ([id number]) [address] [place] [address] 58287 Calcium [Mass/Vol] 8.7 mg/dL Normal 8.5-10.5 [facility] Comment on above: Performed By: #### C BCA, 94860-5, [facility], 1987-09, 55728-3 #### [facility] ([id number]) [address] [place] [address] 63715 Chloride [Moles/Vol] 102 mmol/L Normal 98-109 [facility] Comment on above: Performed By: #### C LEIGHTON, 12360-7, [facility], 1987-09, 95556-4 #### [facility] ([id number]) [address] [place] [address] 80285 CO2 [Moles/Vol] 26 mmol/L Normal 22-32 [facility] Comment on above: Performed By: #### C LEIGHTON, , [facility], 1987-09, 27012-5 #### [facility] ([id number]) [address] [place] [address] 88147 Creatinine [Mass/Vol] 0.90 mg/dL Normal 0.40-1.00 [facility] Comment on above: Result Comment: METH OD TRACEABLE TO IDMS STANDARD Performed By: #### C LEIGHTON, 28363-2, [facility], 1987-09, 36070-0 #### [facility] ([id number]) [address] [place] [address] 03936 GFR/1.73 sq M.predicted among non-blacks MDRD (S/P/Bld) [Vol rate/Area] 88 mL/min/{1.73_m2} Normal >59 [facility] Comment on above: Result Comment: Reported eGFR is based on the CKD-EPI 2020 equation that does not use a race coefficient. Performed By: #### C LEIGHTON, 08775-5, [facility], 1987-09, 71449-9 #### [facility] ([id number]) [address] [place] [address] 50214 Glucose [Mass/Vol] 79 mg/dL Normal 65-99 [facility] Comment on above: Performed By: #### C LEIGHTON, 84796-3, [facility], 1987-09, 47339-2 #### [facility] ([id number]) [address] [place] [address] 37325 Potassium [Moles/Vol] 3.8 mmol/L Normal 3.5-5.0 [facility] Comment on above: Performed By: #### C BCA, , [facility], 1987-09, 03948-1 #### [facility] ([id number]) [address] [place] [address] 36353 Protein [Mass/Vol] 7.4 g/dL Normal 6.0-8.0 [facility] Comment on above: Performed By: #### C LEIGHTON, , [facility], 1987-09, 43057-5 #### [facility] ([id number]) [address] [place] [address] 98171 Sodium [Moles/Vol] 137 mmol/L Normal 134-146 [facility] Comment on above: Performed By: #### C LEIGHTON, , [facility], 1987-09, 14736-6 #### [facility] ([id number]) [address] [place] [address] 28967 Urea nitrogen [Mass/Vol] 13 mg/dL Normal 5-23 [facility] Comment on above: Performed By: #### C BCA, , [facility], 1987-09, 34847-3 #### [facility] ([id number]) [address] [place] [address] 85665 CRP [Mass/Vol]on 09-06-2023 C REACTIVE PROTEIN 2.6 mg/dL High 0.000-0.744 [facility] Comment on above: Performed By: #### 2 106-3 #### [facility] ([id number]) [address] [place] [address] 35377 Fibrin D-dimer DDU (PPP) [Ma ss/Vol]on 09-06-2023 D DIMER 248 ng/mL DDU Normal <255 [facility] Comment on above: Result Comment: Results <255 ng/mL DDU: The presence of a VTE can safely be excluded with a negative D-Dimer result and Wells score. A negative result doesn't exclude the possibility of DIC. The test be repeated along with other diagnostic tests if the patient's symptoms persist or worsen. [email or web address] Performed By: #### C BCA, 50901-1, CMP, 1987-5, 91864-7 #### [facility] ([id number]) [address] [place] [address] 30217 LIPASEon 09-06-2023 Lipase [Catalytic activity/Vol] 36 U/L Normal 17-40 [facility] Comment on above: Performed By: #### 2 106-3 #### [facility] ([id number]) [address] [place] [address] 42474 Troponin I.cardiac High sens itivity method [Mass/Vol]on 09-06-2023 1 HOUR TROP I, HIGH SENSITIVITY <2 Normal <16 [facility] Comment on above: Performed By: #### 2 106-3 #### [facility] ([id number]) [address] [place] [address] 99357 TROPONIN I, HIGH SENSITIVITY <2 Normal <16 [facility] Comment on above: Performed By: #### 2 106-3 #### [facility] ([id number]) [address] [place] [address] 36215 XR CHEST 2 VWSon 09-06-2023 XR CHEST 2 VWS XR CHEST 2 VWS History: Chest pain Exam/Technique: PA and lateral chest Comparison: 04/23/2023 Findings: There is no evidence of active pulmonary or pleural disease. Cardiac and mediastinal contours are within normal limits. IMPRESSION: No active pulmonary disease. Finalized by Guero Rosa MD on 09/06/2023 9:56 PM Normal [facility] US PELVIC WITH TRANSVAGINAL AND DUPLEXon 06-25-2023 US PELVIC WITH TRANSVAGINAL AND DUPLEX US PELVIC WITH TRANSVAGINAL AND DUPLEX CLINICAL INFORMATION: Ultrasound last night unable to appreciate Doppler flow in the left ovary most likely technical issues with recommendation for short-term follow-up Hx- Pelvic pain, LMP- 06/02/2023, torsion. TECHNIQUE: Real-time transabdominal and transvaginal sonographic evaluation of the pelvis was performed with doan scale and color flow imaging. Transabdominal imaging performed to evaluate for extra adnexal pelvic pathology. Transvaginal imaging performed for better delineation of the adnexal and endometrial contents. Real time doan scale, color flow imaging and duplex spectral Doppler waveform analysis evaluation was performed of the major arterial inflow and venous outflow structures of the ovaries with arterial and venous spectral waveforms obtained and reviewed in view of the clinical history of pelvic pain, torsion Duplex spectral Doppler document arterial and venous spectral waveforms documented within the major arterial inflow and venous outflow of both ovaries. Arterial and venous Doppler duplex spectral waveforms were evaluated. COMPARISON: June 24 FINDINGS: Uterus 10 x 5 x 6 cm or 170 mL Right ovary 32 x 28 x 31 mm or 15 mL Left ovary 29 x 18 x 22 mm or 6 mL Transabdominal and transvaginal scans Follicular changes seen in both ovaries No dominant cyst No suspicious extra-axial fluid collection is seen Endometrium looks prominent measured at 16 mm on transvaginal scans with heterogeneity, trace fluid or small cystic focus. There is not significant blood flow demonstrated No discrete fibroids were seen The arterial and venous waveforms are within normal limits. IMPRESSION: * Flow documented to both ovaries * Follicular changes bilaterally with no dominant cystic adnexal mass or suspicious free fluid seen * Globular heterogeneous thickened endometrial stripe in the upper uterine body and fundal region measuring up to 15 mm with trace fluid or cystic change. Confirm negative status, correlate for any abnormal discharge or dysfunctional bleeding and consider follow-up surveillance within 3 months, preferably imaging right after completing the menstrual cycle, to check for clearing and normalization Finalized by Clay Vance MD on 06/25/2023 8:21 AM Normal [facility] CBC AND AUTO DIFFon 02-06-20 24 ABSOLUTE BASOPHIL 0.1 X10E9/L Normal 0.0-0.2 [facility] Comment on above: Performed By: #### Patrizia MANZANARES [facility], 3 #### [facility] ([id number]) [address] [place] [address] 58339 ABSOLUTE NEUTROPHIL 8.1 X10E9/L High 1.5-6.6 [facility] Comment on above: Performed By: #### Patrizia MANZANARES [facility], 3 #### [facility] ([id number]) [address] [place] [address] 80598 Basophils/100 WBC (Bld) 0.9 % Normal [facility] Comment on above: Performed By: #### Patrizia MANZANARES CMP, 3039-07 #### [facility] ([id number]) [address] [place] [address] 78506 Eosinophils (Bld) [#/Vol] 0.7 10*3/uL High 0.0-0.4 [facility] Comment on above: Performed By: #### Patrizia MANZANARES [facility], 3 #### [facility] ([id number]) [address] [place] [address] 09980 Eosinophils/100 WBC (Bld) 5.3 % Normal [facility] Comment on above: Performed By: #### Patrizia MANZANARES [facility], 3039-07 #### [facility] ([id number]) [address] [place] [address] 98617 Erythrocyte distribution width (RBC) [Ratio] 13.9 % Normal 11.5-15.0 [facility] Comment on above: Performed By: #### Patrizia MANZANARES CMP, 3 #### [facility] ([id number]) [address] [place] [address] 45764 Hematocrit (Bld) [Volume fraction] 40.3 % Normal 35-47 [facility] Comment on above: Performed By: #### C NAIN MANZANARES, 3039-07 #### [facility] ([id number]) [address] [place] [address] 49429 Hemoglobin (Bld) [Mass/Vol] 13.7 g/dL Normal 11.7-15.5 [facility] Comment on above: Performed By: #### Patrizia MANZANARES CMP, 3039-07 #### [facility] ([id number]) [address] [place] [address] 87387 Lymphocytes (Bld) [#/Vol] 3.8 10*3/uL High 1.0-3.5 [facility] Comment on above: Performed By: #### Patrizia MANZANARES CMP, 3039-07 #### [facility] ([id number]) [address] [place] [address] 21734 Lymphocytes/100 WBC (Bld) 28.5 % Normal [facility] Comment on above: Performed By: #### Patrizia MANZANARES CMP, 3039-07 #### [facility] ([id number]) [address] [place] [address] 39280 MCH (RBC) [Entitic mass] 29.4 pg Normal 27-34 [facility] Comment on above: Performed By: #### Patrizia MANZANARES CMP, 3039-07 #### [facility] ([id number]) [address] [place] [address] 03565 MCHC (RBC) [Mass/Vol] 34.0 g/dL Normal 32-36 [facility] Comment on above: Performed By: #### Patrizia MANZANARES CMP, 3 #### [facility] ([id number]) [address] [place] [address] 25100 MCV (RBC) [Entitic vol] 86 fL Normal 80-100 [facility] Comment on above: Performed By: #### Patrizia MANZANARES CMP, 3 #### [facility] ([id number]) [address] [place] [address] 61673 Monocytes (Bld) [#/Vol] 0.7 10*3/uL Normal 0-0.9 [facility] Comment on above: Performed By: #### Patrizia MANZANARES, CMP, 3040-3 #### [facility] ([id number]) [address] [place] [address] 86730 Monocytes/100 WBC (Bld) 5.1 % Normal [facility] Comment on above: Performed By: #### Patrizia MANZANARES, CMP, 3 #### [facility] ([id number]) [address] [place] [address] 42070 Neutrophils/100 WBC (Bld) 60.2 % Normal [facility] Comment on above: Performed By: #### Patrizia MANZANARES, CMP, 3039-3 #### [facility] ([id number]) [address] [place] [address] 63315 Platelet mean volume (Bld) [Entitic vol] 8.2 fL Normal 7-12 [facility] Comment on above: Performed By: #### Patrizia MANZANARES, CMP, 3039-3 #### [facility] ([id number]) [address] [place] [address] 65864 Platelets (Bld) [#/Vol] 348 10*3/uL Normal 150-450 [facility] Comment on above: Performed By: #### Patrizia MANZANARES, CMP, 3039-3 #### [facility] ([id number]) [address] [place] [address] 57568 RBC COUNT 4.67 X10E12/L Normal 3.80-5.20 [facility] Comment on above: Performed By: #### Patrizia MANZANARES, CMP, 3039-3 #### [facility] ([id number]) [address] [place] [address] 84438 WBC (Bld) [#/Vol] 13.4 10*3/uL High 4.0-11.0 [facility] Comment on above: Performed By: #### C NAIN MANZANARES, 0-3 #### [facility] ([id number]) [address] [place] [address] 60908 COMPREHENSIVE METABOLIC PANE Buck 06-24-2023 Albumin [Mass/Vol] 4.2 g/dL Normal 3.2-5.3 [facility] Comment on above: Performed By: #### C LEIGHTON CMP, 3039-3 #### [facility] ([id number]) [address] [place] [address] 78012 ALP [Catalytic activity/Vol] 82 U/L Normal 39-130 [facility] Comment on above: Performed By: #### Patrizia MANZANARES CMP, 3039-3 #### [facility] ([id number]) [address] [place] [address] 07699 ALT [Catalytic activity/Vol] 15 U/L Normal 0-31 [facility] Comment on above: Performed By: #### C LEIGHTON [facility], 3039-3 #### [facility] ([id number]) [address] [place] [address] 15264 Anion gap [Moles/Vol] 8 mmol/L Normal 5-15 [facility] Comment on above: Performed By: #### Patrizia MANZANARES CMP, 3039-3 #### [facility] ([id number]) [address] [place] [address] 42016 AST [Catalytic activity/Vol] 17 U/L Normal 0-41 [facility] Comment on above: Performed By: #### Patrizia MANZANARES CMP, 3039-3 #### [facility] ([id number]) [address] [place] [address] 85125 Bilirubin [Mass/Vol] 0.3 mg/dL Normal 0.3-1.2 [facility] Comment on above: Performed By: #### C NAIN MANZANARES, 3040-3 #### [facility] ([id number]) [address] [place] [address] 36539 Calcium [Mass/Vol] 8.8 mg/dL Normal 8.5-10.5 [facility] Comment on above: Performed By: #### C NAIN MANZANARES, 3039-3 #### [facility] ([id number]) [address] [place] [address] 73435 Chloride [Moles/Vol] 104 mmol/L Normal 98-109 [facility] Comment on above: Performed By: #### C NAIN MANZANARES, 3039-3 #### [facility] ([id number]) [address] [place] [address] 49649 CO2 [Moles/Vol] 27 mmol/L Normal 22-32 [facility] Comment on above: Performed By: #### C NAIN MANZANARES, 3039-3 #### [facility] ([id number]) [address] [place] [address] 73449 Creatinine [Mass/Vol] 0.80 mg/dL Normal 0.40-1.00 [facility] Comment on above: Result Comment: METH OD TRACEABLE TO IDMS STANDARD Performed By: #### C NAIN MANZANARES, 3040-3 #### [facility] ([id number]) [address] [place] [address] 31058 eGFR (CKD-EPI) NON-RACE DEPENDENT >90 Normal >59 [facility] Comment on above: Result Comment: Reported eGFR is based on the CKD-EPI 2020 equation that does not use a race coefficient. Performed By: #### C NAIN MANZANARES, 3040-3 #### [facility] ([id number]) [address] [place] [address] 59397 Glucose [Mass/Vol] 91 mg/dL Normal 65-99 [facility] Comment on above: Performed By: #### C NAIN MANZANARES, 3040-3 #### [facility] ([id number]) [address] [place] [address] 16276 Potassium [Moles/Vol] 3.7 mmol/L Normal 3.5-5.0 [facility] Comment on above: Performed By: #### C LEIGHTON, CMP, 0-3 #### [facility] ([id number]) [address] [place] [address] 76607 Protein [Mass/Vol] 7.6 g/dL Normal 6.0-8.0 [facility] Comment on above: Performed By: #### C LEIGHTON CMP, 3039-3 #### [facility] ([id number]) [address] [place] [address] 79179 Sodium [Moles/Vol] 139 mmol/L Normal 134-146 [facility] Comment on above: Performed By: #### C LEIGHTON CMP, 3 #### [facility] ([id number]) [address] [place] [address] 31019 Urea nitrogen [Mass/Vol] 11 mg/dL Normal 5-23 [facility] Comment on above: Performed By: #### C LEIGHTON, CMP, 0-3 #### [facility] ([id number]) [address] [place] [address] 99197 HCG ( test) Ql (U)o n 06-24-2023 Beta HCG ( test) Ql (U) Negative Normal NEG [facility] Comment on above: Performed By: #### 2 106-3 #### [facility] ([id number]) [address] [place] [address] 73058 LIPASEon 06-24-2023 Lipase [Catalytic activity/Vol] 35 U/L Normal 17-40 [facility] Comment on above: Performed By: #### C LEIGHTON, CMP, 3039-3 #### [facility] ([id number]) [address] [place] [address] [place] [address] URN MACROSCOPIC NURon 2023 BILIRUBIN ISMAEL Negative Normal NEG [facility] Comment on above: Performed By: #### N UM #### [facility] ([id number]) [address] [place] [address] [place] [address] BLOOD/HGB ISMAEL Negative Normal NEG [facility] Comment on above: Performed By: #### N UM #### [facility] ([id number]) [address] [place] [address] [place] [address] GLUCOSE ISMAEL Negative Normal NEG [facility] Comment on above: Performed By: #### N UM #### [facility] ([id number]) [address] [place] [address] [place] [address] KETONES ISMAEL Negative Normal NEG [facility] Comment on above: Performed By: #### N UM #### [facility] ([id number]) [address] [place] [address] [place] [address] LEUKOCYTE ESTERASE ISMAEL Negative Normal NEG [facility] Comment on above: Performed By: #### N UM #### [facility] ([id number]) [address] [place] [address] [place] [address] NITRITE ISMAEL Negative Normal [facility] Comment on above: Performed By: #### N UM #### [facility] ([id number]) [address] [place] [address] [place] [address] PH ISMAEL 6.0 Normal 5.0-8.5 [facility] Comment on above: Performed By: #### N UM #### [facility] ([id number]) [address] [place] [address] [place] [address] PROTEIN ISMAEL Negative Normal NEG [facility] Comment on above: Performed By: #### N UM #### [facility] ([id number]) [address] [place], [place] [address], [place] [address] SPECIFIC GRAVITY ISMAEL 1.015 Normal 1.003-1.035 [facility] Comment on above: Performed By: #### N UM #### [facility] ([id number]) [address] [facility], [place] [address] UROBILINOGEN ISMAEL 0.2 eu/dL Normal <1.1 [facility] Comment on above: Performed By: #### N UM #### [facility] ([id number]) [address] [facility], [place] [address] US PELVIC WITH TRANSVAGINAL AND DUPLEXon 06-24-2023 US PELVIC WITH TRANSVAGINAL AND DUPLEX US PELVIC WITH TRANSVAGINAL AND DUPLEX CLINICAL INFORMATION: Evaluate for Ovarian Torsion. TECHNIQUE: Real-time transabdominal and transvaginal sonographic evaluation of the pelvis was performed with doan scale and color flow imaging. Transabdominal imaging performed to evaluate for extra adnexal pelvic pathology. Transvaginal imaging performed for better delineation of the adnexal and endometrial contents. Real time doan scale, color flow imaging and duplex spectral Doppler waveform analysis evaluation was performed of the major arterial inflow and venous outflow structures of the ovaries with arterial and venous spectral waveforms obtained and reviewed in view of the clinical history of Evaluate for Ovarian Torsion . Duplex spectral Doppler document arterial and venous spectral waveforms documented within the major arterial inflow and venous outflow of both ovaries. Arterial and venous Doppler duplex spectral waveforms were evaluated. COMPARISON: 03/26/2010 FINDINGS: Uterus has a normal appearance. Uterus measures 9.3 cm. Endometrium is homogeneous and measures cm. Right ovary : 3.0 x 2.8 x 3.1 cm. Normal appearance. Left ovary : 3.3 x 1.7 x 2.1 cm. Normal appearance. The arterial and venous waveforms on the right are within normal limits. Normal venous Doppler waveform on the left. No appreciable arterial Doppler flow within the left ovary. IMPRESSION: * No appreciable arterial Doppler flow within the left ovary. This is highly likely technical in the absence of associated ovarian enlargement, however early ovarian torsion could still be possible in the appropriate clinical setting. Clinical correlation recommended, consider short-term repeat ultrasound and/or gynecology consultation as indicated. Finalized by Froilan Henson on 06/24/2023 10:20 PM Normal [facility] CNOVon 03-18-2023 CNOV Office Visit (PULMMN ) SANDEE NULL ([id number]) 1990 F Date Time Provider Department 03/18/23 12:00 PM RADHA VANG PULMMPop During your visit today, we recorded the following information about you: Temperature Pulse Respiration Blood pressure 96.9 degrees 91/minute 16/minute 127/74 Weight 124.7 kg Radha Vang MD 03/18/2023 12:26 PM Signed ESTABLISHED PATIENT FOLLOW-UP SERVICE DATE: 03/18/2023 PRIMARY CARE PHYSICIAN: Qasim Daley MD ASSESSMENT AND PLAN: Moderate persistent eosinophilic asthma - Currently well controlled as long as she takes her inhaler as prescribed. Spirometry from 03/2020 did demonstrated mild obstruction with FEV1 of 104 with BD challenge in 2019. In 2021, eosinophils were 0.52. No IgE on file. HCUP: 1 hospitalization for asthma this year.Steroids while in the hospital (2022). Hospitalization was due to non-adherence. Symbicort 160-4.5 mcg/act 2 puffs BID Albuterol 2 puffs INH q 6 hours PRN BMI 50.30- monitor as this will contribute to her dyspnea Non-adherence- Has history of non-adherence. Lost to follow up since 2019 for me personally. Is very busy with 7 children. 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 Surgery was Dr. Huang. Resolved issue. SUBJECTIVE CHIEF COMPLAINT: asthma HPI:Sandee Null is a 33 year old female here for follow appointment for Asthma. Since the prior visit: She had a left robotic assisted lower lobe wedge resection. Final pathology showed necrotizing granuloma. Not short of breath. She takes symbicort and a rescue inhaler. She takes that off and over since the past several months. She went to the ED in 01/2023 and she antibiotics and steroids.. She then went back to the ED and was hospitalized for her breathing. In the hospital, she was given high -dose IV steroids as well as nebulizer treatments. She tells me that prior to that hospitalization, she just was not using her inhaler. ASTHMA CONTROL TEST Date: 03/18/2023 In the last 4 weeks, how much of the time did your asthma keep you from getting as much done at work or home that you wanted to do? None of the time (5) In the last 4 weeks, how often have you had shortness of breath? Once or twice per week (4) In the last 4 weeks, how often did your asthma symptoms (wheezing, coughing, shortness of breath, chest tightness or pain) wake you up at night or earlier than usual? Not at all (5) In the last 4 weeks, how often have you used your rescue inhaler or nebulizer medication (such as Albuterol, Proventil, Ventolin, Maxair, Xoponex, or Primatene Mist)? Not at all (5) In the last 4 weeks, how would you rate your asthma control? Well controlled (4) Total: more than 20 SOCIAL HISTORY: Social History Tobacco Use Smoking status: Every Day Packs/day: 1.00 Years: 15.00 Additional pack years: 0.00 Total pack years: 15.00 Types: Cigarettes Smokeless tobacco: Never Vaping Use Vaping Use: Never used Substance Use Topics Alcohol use: Not Currently Drug use: Never MEDICATIONS: Prior to Admission Medications (Not in a hospital admission) CURRENT ALLERGIES: ALLERGIES Allergen Reactions Adhesive Tape-Silic* Other: See Comments Blisters, peeling skin Latex Rash Levofloxacin Other: See Comments tendenitis Metronidazole Vomiting Vancomycin Hives COMPLETE REVIEW OF SYSTEMS: All other reviewed and negative other than HPI. OBJECTIVE PHYSICAL EXAM: BP 127/74 Pulse 91 Temp (Src) 96.9 (Temporal) Resp 16 Wt 275 lb (124.7kg) SpO2 98% LMP 08/30/2021 General appearance: well appearing, alert, and in no acute distress Nose/Sinuses: Nares normal, septum midline, mucosa normal, no drainage or sinus tenderness Oropharynx: Lips, mucosa and tongue normal, teeth and gums normal, oropharynx normal. Respiratory: lungs clear to auscultation no wheezing or rhonchi Cardiovascular: Negative. RRR without murmur, gallop, or rubs. No ectopy DATA: Diagnostic tests reviewed for today's visit, films/specimens were personally reviewed by me: Most recent labs SIGNATURE: Radha Vang MD PATIENT NAME: Sandee Null DATE: March 18, 2023 TIME: 11:33 AM PAGER/CONTACT #: [phone] Radha Vang MD 03/18/2023 11:48 AM Signed Please take the symbicort inhaler two puffs twice daily. Take albuterol as needed. Radha Vang MD With questions or concerns, please call the following: [place] [facility] [phone] Press Option #2 for pulmonary office Allergies As of Date: 03/18/2023 Noted Allergy Reaction ADHESIVE TAPE-SILICONES 10/19/2021 14 - Other: See Comments Comments: Blisters, peeling skin LATEX 01/19/2017 2 - (more content not included)... Normal [facility] Cholesterol [Mass/volume] in Serum or PlasmaOrdered By: Hardy Jones on 03-10-2023 Cholesterol [Mass/Vol] 143 mg/dL 140-200 [facility] Comment on above: Chol less than 200 m g/dl low riskChol 201-239 mg/dl borderline riskChol 240 mg/dl and greater high risk Cholesterol in LDL Calc [Mas s/Vol]Ordered By: Hardy Jones on 03-10-2023 Cholesterol in LDL [Mass/Vol] 77 mg/dL 0-100 [facility] Comment on above: LDL ATP III CLASSIFI CATIONLDL less than 100 mg/dL OptimalLDL 100-129 mg/dL Near or above optimalLDL 130-159 mg/dL Borderline highLDL 160-189 mg/dL HighLDL greater than 189 mg/dL Very high Cholesterol in VLDL Calc [Ma ss/Vol]Ordered By: Hardy Jones on 03-10-2023 Cholesterol in VLDL [Mass/Vol] 18 mg/dL [facility] ECG 12 lead ECGon 03-10-2023 ECG 12 lead ECG [facility] [address] [place] [address] Electrocardiograph Report Signed Patient: Sandee Null MR#: [id number] : 1990 Acct:[id number] Age/Sex: 33 / F ADM Date: 03/10/23 Loc: Room: [address] [place] [address] Type: ADM IN Attending Dr: Jus Santos MD Ordering Provider: Hardy Jones MD Date of Service: 03/10/23 ECG/ECG 12 lead ECG: antipsychotic therapy Copies to: Test Reason : Blood Pressure : / mmHG Vent. Rate : 083 BPM Atrial Rate : 083 BPM P-R Int : 130 ms QRS Dur : 086 ms QT Int : 348 ms P-R-T Axes : 005 055 049 degrees QTc Int : 408 ms Normal sinus rhythm Normal ECG No previous ECGs available Confirmed by INGA MILLER DO ([id number]) on 03/10/2023 5:22:42 PM Referred By: Electronically Signed By:INGA MILLER DO Transcribed By: MUS Signed By Inga Miller DO 03/10 1722 Normal [facility] Lipid Panelon 03-10-2023 Cholesterol [Mass/Vol] 143 mg/dL Normal 140-200 [facility] Comment on above: Order Comment: VEL Hutchison Result Comment: Chol less than 200 mg/dl low risk Chol 201-239 mg/dl borderline risk Chol 240 mg/dl and greater high risk Performed By: #### T SH3 wRFLX, LIPID, [id number] #### [facility] [address] [place] [address] [place] Cholesterol in HDL [Mass/Vol] 48 mg/dL Normal 23-92 [facility] Comment on above: Order Comment: VEL Hutchison Result Comment: HDL CHOL ATP-III CLASSIFICATION Cardiovascular Risk HDL > or equal to 60 mg/dL LOW HDL < 40 mg/dL HIGH Performed By: #### T SH3 wRFLX, LIPID, [id number] #### [facility] [address] [place] [address] [place] Cholesterol.total/Cho lesterol in HDL [Mass ratio] 3.0 {ratio} Normal <5.0 [facility] Comment on above: Order Comment: VEL Hutchison Performed By: #### T SH3 wRFLX, LIPID, [id number] #### [facility] [address] LDL Cholesterol,Calculate d 77 mg/dL Normal 0-100 [facility] Comment on above: Order Comment: VEL Hutchison Result Comment: LDL ATP III CLASSIFICATION LDL less than 100 mg/dL Optimal LDL 100-129 mg/dL Near or above optimal LDL 130-159 mg/dL Borderline high LDL 160-189 mg/dL High LDL greater than 189 mg/dL Very high Performed By: #### T SH3 wRFLX, LIPID, [id number] #### [facility] [address] Triglyceride w/Reflex 90 mg/dL Normal 0-149 [facility] Comment on above: Order Comment: VEL Hutchison Result Comment: TRIG ATP III CLASSIFICATION TRIG less than 150 mg/dL Normal TRIG 150-199 mg/dL Borderline high TRIG 200-500 mg/dL High TRIG greater than 500 mg/dL Very high Standard traceable to the Center for Disease Conrtrol and Prevention (CDC) test method. Performed By: #### T SH3 wRFLX, LIPID, [id number] #### [facility] [address] VLDL CHOLESTEROL 18 mg/dL Normal [facility] Comment on above: Order Comment: VEL Hutchison Performed By: #### T SH3 wRFLX, LIPID, [id number] #### [facility] [address] Serum or plasma high density lipoprotein (HDL) cholesterol measurementOrdered By: Hardy Jones on 03-10-2023 Cholesterol in HDL [Mass/Vol] 48 mg/dL 23- [facility] Comment on above: HDL CHOL ATP-III CLA SSIFICATION Cardiovascular RiskHDL > or equal to 60 mg/dL LOWHDL < 40 mg/dL HIGH Serum or plasma total choles terol/high density lipoprotein (HDL) cholesterol mass ratOrdered By: Hardy Jones on 03-10-2023 Cholesterol.total/Cho lesterol in HDL [Mass ratio] 3.0 {ratio} <5.0 [facility] Thyroid Stim Hormone w/Rflxo n 03-10-2023 Thyroid Stim Hormone w/Rflx 1.79 u[iU]/mL Normal 0.45-5.33 [facility] Comment on above: Order Comment: FASTDorian NG Y Performed By: #### T SH3 wRFLX, LIPID, [id number] #### [facility] [address] Thyrotropin [Units/volume] i n Serum or PlasmaOrdered By: Hardy Jones on 03-10-2023 TSH Qn 1.79 m[IU]/L 0.45-5.33 [facility] Triglyceride [Mass/volume] i n Serum or PlasmaOrdered By: Hardy Jones on 03-10-2023 Triglyceride [Mass/Vol] 90 mg/dL 0-149 [facility] Comment on above: TRIG ATP III CLASSIF ICATIONTRIG less than 150 mg/dL NormalTRIG 150-199 mg/dL Borderline highTRIG 200-500 mg/dL High TRIG greater than 500 mg/dL Very highStandard traceable to the Center for Disease Conrtrol and Prevention (CDC) test method. Vitamin D 25 Hydroxy Totalon 03-10-2023 Vitamin D 25 Hydroxy Total 27.0 ng/mL Low 30-100 [facility] Comment on above: Order Comment: FASTDorian NG Y Result Comment: LUCHO MIN D STATUS 25([place])VITAMIN D RANGE (ng/mL) Deficient <20 Insufficient 20 to <30 Sufficient 30 to 100 Reference: Nish MF,Fred NC, Chiquita MCQUEEN, et al. Evaluation,treatment, and prevention of vitamin D deficiency; an Endocrine Society clinical practice guideline. JCEM. 2010; 96(7):1911-30. PERFORMED BY: [place] [address] PATHOLOGIST [employer] NOHEMI HERNANDEZ M.D. Performed By: #### T SH3 wRFLX, LIPID, [id number] #### [facility] [address] [place] [id number] [facility] Vitamin D+Metabolites [Mass/ volume] in Serum or PlasmaOrdered By: Hardy Jones on 03-10-2023 Vitamin D+Metabolites [Mass/Vol] 27.0 ng/mL 30-100 [facility] Comment on above: VITAMIN D STATUS 25( [place])VITAMIN D RANGE (ng/mL) Deficient <20 Insufficient 20 to <30Sufficient 30 to 100Reference: Nish MF,Fred TRUJILLO, Chiquita MCQUEEN, et al. Evaluation,treatment, and prevention of vitamin D deficiency; an Endocrine Society clinical practice guideline. JCEM. 2010; 96(7):1911-30. CBC AUTO DIFFon 09-21-2021 BASO # 0.1 103/ul Normal 0.0-0.1 [facility] Comment on above: Performed By: #### C BC #### [facility] [address] [address] [address] Jigna Acuna Basophils/100 WBC (Bld) 0.5 % Normal 0.2-2.0 [facility] Comment on above: Performed By: #### C BC #### [facility] [address] [address] [address] Jigna Acuna EO # 0.6 103/ul Normal 0.0-0.7 [facility] Comment on above: Performed By: #### C BC #### [facility] [address] [address] [address] Jigna Acuna Eosinophils/100 WBC (Bld) 6.2 % Normal 0.9-7.0 [facility] Comment on above: Performed By: #### C BC #### [facility] [address] [address] [address] Jigna Acuna Erythrocyte distribution width (RBC) [Ratio] 14.5 % Normal 11.0-15.0 [facility] Comment on above: Performed By: #### C BC #### [facility] [address] [address] [address] Jigna Acuna Hematocrit (Bld) [Volume fraction] 36.1 % Normal 36.0-48.0 [facility] Comment on above: Performed By: #### C BC #### [facility] [address] [place] [address] Dr. Jigna Acuna Hemoglobin (Bld) [Mass/Vol] 11.5 g/dL Critically low 12.0-16.0 [facility] Comment on above: Performed By: #### C BC #### [facility] [address] [place] [address] Dr. Jigna Acuna IG # 0.03 10e3/ul Normal 0.00-0.03 [facility] Comment on above: Performed By: #### C BC #### [facility] [address] [place] [address] Dr. Jigna Acuna IG % 0.3 % Normal 0.0-0.5 [facility] Comment on above: Performed By: #### C BC #### [facility] [address] [place] [address] Dr. Jigna Acuna LYMPH # 2.9 103/ul Normal 1.2-3.8 [facility] Comment on above: Performed By: #### C BC #### [facility] [address] [place] [address] Dr. Jigna Acuna Lymphocytes/100 WBC (Bld) 28.4 % Normal 20.5-60.0 [facility] Comment on above: Performed By: #### C BC #### [facility] [address] [place] [address] Dr. Jigna Acuna MANUAL DIFF REQ NO Normal [facility] Comment on above: Performed By: #### C BC #### [facility] [address] [place] [address] Dr. Jigna Acuna MCH (RBC) [Entitic mass] 27.1 pg Normal 26.7-34.[address] [facility] Comment on above: Performed By: #### C BC #### [facility] [address] [place] [address] Dr. Jigna Acuna MCHC (RBC) [Mass/Vol] 31.9 g/dL Normal 29.9-35.[address] [facility] Comment on above: Performed By: #### C BC #### [facility] [address] [address] [address] Jigna Acuna MCV (RBC) [Entitic vol] 84.9 fL Normal 81.0-99.0 [facility] Comment on above: Performed By: #### C BC #### [facility] [address] [address] [address] Jigna Acuna MONO # 0.5 103/ul Normal 0.3-0.[address] [facility] Comment on above: Performed By: #### C BC #### [facility] [address] [place] [address] Dr. Jigna Acuna Monocytes/100 WBC (Bld) 4.9 % Normal 1.7-12.0 [facility] Comment on above: Performed By: #### C BC #### [facility] [address] [place] [address] Dr. Jigna Acuna NEUT # 6.0 103/ul Normal 1.4-6.5 [facility] Comment on above: Performed By: #### C BC #### [facility] [address] [place] [address] Dr. Jigna Acuna Neutrophils/100 WBC (Bld) 59.7 % Normal 43.0-75.0 [facility] Comment on above: Performed By: #### C BC #### [facility] [address] [place] [address] Dr. Jigna Acuna Platelet mean volume (Bld) [Entitic vol] 9.8 fL Normal 9.5-13.[address] [facility] Comment on above: Performed By: #### C BC #### [facility] [address] [place] [address] Dr. Jigna Acuna PLT 317 103/ul Normal 150-[address] [facility] Comment on above: Performed By: #### C BC #### [facility] [address] [place] [address] Dr. Jigna Acuna RBC 4.25 106/ul Normal 4.20-5.[address] [facility] Comment on above: Performed By: #### C BC #### [facility] [address] [place] [address] Dr. Jigna Acuna WBC 10.0 103/ul Normal 4.0-11.0 [facility] Comment on above: Performed By: #### C BC #### [facility] [address] [place] [address] Dr. Jigna Acuna PROF CHEM 8 (BAS METB)on Anion gap [Moles/Vol] 12.2 mmol/L Normal [facility] Comment on above: Performed By: #### B MP #### [facility] [address] [place] [address] Dr. Jigna Acuna Calcium [Mass/Vol] 8.2 mg/dL Critically low 8.5-10.1 [facility] Comment on above: Performed By: #### B MP #### [facility] [address] [place] [address] Dr. Jigna Acuna Chloride [Moles/Vol] 99 mmol/L Normal 98-107 [facility] Comment on above: Performed By: #### B MP #### [facility] [address] [place] [address] Dr. Jigna Acuna CO2 [Moles/Vol] 28.7 mmol/L Normal 21.0-32.0 [facility] Comment on above: Performed By: #### B MP #### [facility] [address] [place] [address] Dr. Jigna Acuna Creatinine [Mass/Vol] 0.65 mg/dL Normal 0.55-1.02 [facility] Comment on above: Performed By: #### B MP #### [facility] [address] [place] [address] Dr. Jigna Acuna EGFR-AF WALLISIAN >60 Normal >=60 [facility] Comment on above: Performed By: #### B MP #### [facility] [address] [place] [address] Dr. Jigna Acuna EGFR-NON AF WALLISIAN >60 Normal >=60 [facility] Comment on above: Performed By: #### B MP #### [facility] [address] [place] [address] Dr. Jigna Acuna Glucose [Mass/Vol] 91 mg/dL Normal 74-[address] [facility] Comment on above: Performed By: #### B MP #### [facility] [address] [address] [address] Jigna Acuna Potassium [Moles/Vol] 3.9 mmol/L Normal 3.5-5.1 [facility] Comment on above: Performed By: #### B MP #### [facility] [id number] Jigna Acuna Sodium [Moles/Vol] 136 mmol/L Normal 136-145 [facility] Comment on above: Performed By: #### B MP #### [facility] [id number] Jigna Acuna Urea nitrogen [Mass/Vol] 14.0 mg/dL Normal 7.0-18.0 [facility] Comment on above: Performed By: #### B MP #### [facility] [id number] Jigna Acuna Urea nitrogen/Creatinine [Mass ratio] 21.5 mg/mg Normal [facility] Comment on above: Performed By: #### B MP #### [facility] [id number] Jigna Acuna XR CHEST 2 Von 09-21-2021 XR CHEST 2 V EXAM: XR CHEST 2 V HISTORY: COUGH position from left lower lobectomy bruising. COMPARISON: CT thorax performed 03/10/2020 and chest x-ray performed 08/16/2019. TECHNIQUE: Frontal and lateral views of the chest are obtained. FINDINGS: The cardiomediastinal silhouette is nonenlarged. Pulmonary vascular markings are within normal limits. There is bibasilar platelike densities likely atelectasis or early infiltrate. Mild blunting of the lateral costophrenic angle is present with the posterior costophrenic angles are clear. No pneumothorax. The osseous structures appear normally intact. IMPRESSION: Interval development of bibasilar atelectasis or infiltrate with blunting of the lateral left costophrenic angle likely scarring or atelectasis. Electronically authenticated by: ROBERT VIERA Date: 2021-09-21 01:28 Normal [facility] Basic metabolic 2000 panelon 09-19-2021 Anion gap [Moles/Vol] 18 mmol/L Normal 9-18 [facility] Comment on above: Order Comment: Speci men Type: BLOOD SPECIMEN Ordering Facility: [facility] Address: [address] [place] [address] Performed By: #### 2 4321-2 #### [facility] CLIA [id number] [address] [place] [address] [place] Calcium [Mass/Vol] 8.5 mg/dL Normal 8.5-10.2 [facility] Comment on above: Order Comment: Speci men Type: BLOOD SPECIMEN Ordering Facility: [facility] Address: [address] [place] [address] Performed By: #### 2 4321-2 #### [facility] CLIA [id number] [address] [place] [address] [place] Chloride [Moles/Vol] 104 mmol/L Normal 97-105 [facility] Comment on above: Order Comment: Speci men Type: BLOOD SPECIMEN Ordering Facility: [facility] Address: [address] [place] [address] Performed By: #### 2 4321-2 #### [facility] CLIA [id number] [address] [place] [address] [place] CO2 [Moles/Vol] 18 mmol/L Low 22-30 [facility] Comment on above: Order Comment: Speci men Type: BLOOD SPECIMEN Ordering Facility: [facility] Address: [address] [place] [address] Performed By: #### 2 4321-2 #### [facility] CLIA [id number] [address] [place] [address] [place] Creatinine [Mass/Vol] 0.81 mg/dL Normal 0.58-0.96 [facility] Comment on above: Order Comment: Speci men Type: BLOOD SPECIMEN Ordering Facility: [facility] Address: [address] [place] [address] Performed By: #### 2 4321-2 #### [facility] CLIA [id number] [address] [place] [address] [place] ESTIMATED GLOMERULAR FILTRATION RATE 101 mL/min/1.73m??? Normal >=60 [facility] [facility] Comment on above: Order Comment: Norbert eddy Type: BLOOD SPECIMEN Ordering Facility: [facility] Address: [address] [place] [address] Result Comment: Frances mated Glomerular Filtration Rate (eGFR) is calculated using the 2020 CKD-EPI creatinine equation. This equation utilizes serum creatinine, sex, and age as parameters. The creatinine assay has traceable calibration to isotope dilution-mass spectrometry. Refer to KDIGO guidelines for clinical interpretation. In patients with unstable renal function, e.g. those with acute kidney injury, the eGFR may not accurately reflect actual GFR. Performed By: #### 2 4321-2 #### [facility] CLIA [id number] [place] [address] [place] Glucose [Mass/Vol] 107 mg/dL High 74-99 [facility] Comment on above: Order Comment: Norbert eddy Type: BLOOD SPECIMEN Ordering Facility: [facility] Address: [address] [place] [address] Result Comment: The [place] Diabetes Association (ADA) provides guidance for cutoff values for fasting glucose and random glucose. The ADA defines fasting as no caloric intake for at least 8 hours. Fasting plasma glucose results between 100 to 125 mg/dL indicate increased risk for diabetes (prediabetes). Fasting plasma glucose results greater than or equal to 126 mg/dL meet the criteria for diagnosis of diabetes. In the absence of unequivocal hyperglycemia, results should be confirmed by repeat testing. In a patient with classic symptoms of hyperglycemia or hyperglycemic crisis, random plasma glucose results greater than or equal to 200 mg/dL meet the criteria for diagnosis of diabetes. Reference: Standards of Medical Care in Diabetes 2016, [place] Diabetes Association. Diabetes Care. 2016.39(Suppl 1). Performed By: #### 2 4321-2 #### [facility] CLIA [id number] [place] [address] [place] Potassium [Moles/Vol] 3.9 mmol/L Normal 3.7-5.1 [facility] Comment on above: Order Comment: Speci men Type: BLOOD SPECIMEN Ordering Facility: [facility] Address: [address] [place] [address] Performed By: #### 2 4321-2 #### [facility] CLIA [id number] [address] [place] [address] [place] Sodium [Moles/Vol] 140 mmol/L Normal 136-144 [facility] Comment on above: Order Comment: Speci men Type: BLOOD SPECIMEN Ordering Facility: [facility] Address: [address] [place] [address] Performed By: #### 2 4321-2 #### [facility] CLIA [id number] [address] [place] [address] [place] Urea nitrogen [Mass/Vol] 15 mg/dL Normal 7-21 [facility] Comment on above: Order Comment: Speci men Type: BLOOD SPECIMEN Ordering Facility: [facility] Address: [address] [place] [address] Performed By: #### 2 4321-2 #### [facility] CLIA [id number] [address] [place] [address] [place] CBC panel Auto (Bld)on 09-19 Erythrocyte distribution width (RBC) [Ratio] 14.2 % Normal 11.5-15.0 [facility] Comment on above: Order Comment: Speci men Type: BLOOD SPECIMEN Ordering Facility: [facility] Address: [address] [place] [address] Performed By: #### 5 8410-2 #### [facility] CLIA [id number] [address] [place] [address] [place] Hematocrit (Bld) [Volume fraction] 36.8 % Normal 36.0-46.0 [facility] Comment on above: Order Comment: Speci men Type: BLOOD SPECIMEN Ordering Facility: [facility] Address: [address] [place] [address] Performed By: #### 5 8410-2 #### [facility] CLIA [id number] [place] Hemoglobin (Bld) [Mass/Vol] 12.1 g/dL Normal 11.5-15.5 [facility] Comment on above: Order Comment: Speci men Type: BLOOD SPECIMEN Ordering Facility: [facility] Address: [address] [place] [address] Performed By: #### 5 8410-2 #### [facility] CLIA [id number] [address] [place] [address] [place] MCH (RBC) [Entitic mass] 27.9 pg Normal 26.0-34.0 [facility] Comment on above: Order Comment: Speci men Type: BLOOD SPECIMEN Ordering Facility: [facility] Address: [address] [place] [address] Performed By: #### 5 8410-2 #### [facility] CLIA [id number] [address] [place] [address] [place] MCHC (RBC) [Mass/Vol] 32.9 g/dL Normal 30.5-36.0 [facility] Comment on above: Order Comment: Speci men Type: BLOOD SPECIMEN Ordering Facility: [facility] Address: [address] [place] [address] Performed By: #### 5 8410-2 #### [facility] CLIA [id number] [address] [place] [address] [place] MCV (RBC) [Entitic vol] 84.8 fL Normal 80.0-100.0 [facility] Comment on above: Order Comment: Speci men Type: BLOOD SPECIMEN Ordering Facility: [facility] Address: [address] [place] [address] Performed By: #### 5 8410-2 #### [facility] CLIA [id number] [address] [place] [address] [place] Nucleated RBC (Bld) [#/Vol] 10*3/uL Normal <0.01 [facility] Comment on above: Order Comment: Speci men Type: BLOOD SPECIMEN Ordering Facility: [facility] Address: [address] [place] [address] Performed By: #### 5 8410-2 #### [facility] CLIA [id number] [address] [place] [address] [place] Platelet mean volume (Bld) [Entitic vol] 10.1 fL Normal 9.0-12.7 [facility] Comment on above: Order Comment: Speci men Type: BLOOD SPECIMEN Ordering Facility: [facility] Address: [address] [place] [address] Performed By: #### 5 8410-2 #### [facility] CLIA [id number] [address] [place] [address] [place] Platelets (Bld) [#/Vol] 349 10*3/uL Normal 150-400 [facility] Comment on above: Order Comment: Speci men Type: BLOOD SPECIMEN Ordering Facility: [facility] Address: [address] [place] [address] Performed By: #### 5 8410-2 #### [facility] CLIA [id number] [address] [place] [address] [place] RBC (Bld) [#/Vol] 4.34 10*6/uL Normal 3.90-5.20 [facility] Comment on above: Order Comment: Speci men Type: BLOOD SPECIMEN Ordering Facility: [facility] Address: [address] [place] [address] Performed By: #### 5 8410-2 #### [facility] CLIA [id number] [address] [place] [address] [place] WBC (Bld) [#/Vol] 14.60 10*3/uL High 3.70-11.00 [facility] Comment on above: Order Comment: Speci men Type: BLOOD SPECIMEN Ordering Facility: [facility] Address: [address] [place] [address] Performed By: #### 5 8410-2 #### [facility] CLIA [id number] [place] [address] [place] CNDSon 09-19-2021 CNDS HNO ID: [id number] Author: Rob Scott PA-C Service: Cardiac Surgery Author Type: Physician Top Lift Trimmer Type: Discharge Summary Filed: 09/19/2021 9:31 AM Note Text: Attestation signed by Donald Huang MD at 09/19/2021 9:59 AM Attending Note I have personally performed a face to face assessment of the patient and have reviewed the CHET note. I performed a substantive portion of the visit including all aspects of the following. My jones findings include: The patient's post-operative course has been unremarkable and the patient is doing well. All of the patient's tubes, lines and drains have been removed. The patient has good pain control with oral analgesics. The patient is ambulatory and independent. The patient is tolerating a regular diet. This patient is stable for discharge to home. Other additions or changes: The patient has been given written discharge instructions. The patient has been encouraged to call for any changes, concerns or questions. I will see the patient in follow up in 4 weeks with a chest x-ray. Signature: Donald Huang MD Date: 09/19/2021 Time: 9:59 AM Department of Thoracic Surgery Discharge Summary (Template ID [id number]) PATIENT NAME: Sandee Null ADMISSION DATE: 09/18/2021 DISCHARGE DATE: 09/19/2021 Attending Physician: Donald Huang MD Code Status: Full Code Primary Service: Donald Huang MD Admission Diagnosis: left lower lobe lung nodule Discharge Diagnosis: s/p Left Lower Lobe Wedge resection Reason for Hospitalization: Sandee Null is a very pleasant 31-year old female who is a former 10+ pack year smoker and who has severe asthma. She was found to have a 4 mm left lower lobe lung nodule near the left major fissure on a chest CT in [facility] in 09/2015. She was unaware that she had the nodule at that time and there was no follow up. The patient was hospitaized on 03/10/20 for possible panic attack. She was at that time. She was having chest pain and difficulty breathing. She had chest pain and arm pain on the left side. She was told she had a lung nodule at that time. She knew about the lung nodule but was told that it was larger, now measuring 9.[address] chest on 04/05/21 showed: 9 mm irregularly marginated left lower lobe nodule. Additional 7-8 mm left lower lobe perihilar nodules are identified. The patient underwent a PET scan on 08/13/21 that showed: Few FDG avid left upper cervical lymph nodes are probably reactive. CHEST: Stable non-FDG avid 0.9 cm left lower lobe and mildly FDG avid 0.6 cm left lower lobe perihilar pulmonary nodules. New non-FDG avid right upper lobe nodular opacity may reflect an infectious/inflammatory process. Mildly FDG avid left infrahilar lymph node may be reactive. ABDOMEN/PELVIS: No FDG avid neoplastic process. EXTREMITIES/SKELETON: No suspicious FDG avid osseous lesion. Operations during Hospitalization: Left robotic-assisted lower lobe wedge resection x 1, Left cryo-analgesia procedure, interspaces 6-9, and Chest tube placement x 1 (#24-Indonesian) Hospital Course: * How was the Reason for Hospitalization Addressed: Sandee Null is a very pleasant 31-year old female who is a former 10+ pack year smoker and who has severe asthma. She was found to have a 4 mm left lower lobe lung nodule near the left major fissure on a chest CT in [facility] in 09/2015. She was unaware that she had the nodule at that time and there was no follow up. The patient was hospitaized on 03/10/20 for possible panic attack. She was at that time. She was having chest pain and difficulty breathing. She had chest pain and arm pain on the left side. She was told she had a lung nodule at that time. She knew about the lung nodule but was told that it was larger, now measuring 9.[address] chest on 04/05/21 showed: 9 mm irregularly marginated left lower lobe nodule. Additional 7-8 mm left lower lobe perihilar nodules are identified. The patient underwent a PET scan on 08/13/21 that showed: Few FDG avid left upper cervical lymph nodes are probably reactive. CHEST: Stable non-FDG avid 0.9 cm left lower lobe and mildly FDG avid 0.6 cm left lower lobe perihilar pulmonary nodules. New non-FDG avid right upper lobe nodular opacity may reflect an infectious/inflammatory process. Mildly FDG avid left infrahilar lymph node may be reactive. ABDOMEN/PELVIS: No FDG avid neoplastic process. EXTREMITIES/SKELETON: No suspicious FDG avid osseous lesion. After completing standard preoperative testing, the pt underwent Left robotic-assisted lower lobe wedge resection x 1, Left cryo-analgesia procedure, interspaces 6-9, and Chest tube placement x 1 (#24-Indonesian) on 09/18/2021. She was subsequently transferred to the PACU and th (more content not included)... [facility] CONSULT PROGon 09-19-2021 CONSULT PROG HNO ID: [id number] Author: Ronda Mendieta APRN.FOOD SAFETY TECHNICIAN Service: Pain Management Author Type: Nurse Practitioner Type: Consult Progress Note Filed: 09/19/2021 12:50 PM Note Text: APMS PROGRESS NOTE PATIENT NAME: Sandee Null SERVICE DATE: 09/19/2021 SERVICE TIME: 09:40 AM ASSESSMENT Sandee Null is a 31 year old female who is POD# 1, S/P Left robotic-assisted lower lobe wedge resection, Left cryo-analgesia procedure, interspaces 6-9. Chest tube placement X 1 L T6 and T8 single shot performed to aid in post op pain control. Ms. Null is sitting up in bed, she reports L shoulder and L upper chest pain. She does not want take opioids (personal reasons r/t family hx) She is tolerating PO, denies N/V PLAN/Recs: 1. L PV single shots should last ~ 72 hrs 2. Added Flector patch to L shoulder BID may change to diclofenac gel QID at time of discharge 3. Added Robaxin 750 mg TID PRN for muscle spasms The plan was discussed in detail with patient +/- family, bedside RN, APMS staff and primary service, who expressed agreement, understanding and comfort with the plan. Thank you for including us in her care. Please call us with any questions or concerns. APMS will continue to follow. SUBJECTIVE CHIEF COMPLAINT: Post op pain PRIMARY SERVICE: Thoracic Surgery INTERVAL HPI: Sandee Null is a 31 year old female who is POD# 1, S/P Left robotic-assisted lower lobe wedge resection, Left cryo-analgesia procedure, interspaces 6-9. Chest tube placement X 1 L T6 and T8 single shot performed to aid in post op pain control. Pain level is 4 at rest 6 with ambulation on a scale of 0-10. Is the patient tolerating Physical Therapy?: oob bed Pain at surgical site? Yes Character: aching Duration: intermittent Radiation: No Relieved: at times Is patient satisfied with pain control: she has regimen in place, utilizing non opioids options Overnight Events: None Overnight Pain Interventions: no Allergy: ALLERGIES Allergen Reactions - Latex Rash - Levofloxacin Other: See Comments tendenitis - Metronidazole Vomiting MEDICATIONS: Adjuvant Pain Medication: See below. Current Facility-Administered Medications Medication Dose Route Frequency - lactated ringers iv infusion 5-30 mL/hr INTRAVENOUS CONTINUOUS - acetaminophen 1,000 mg tab(s) (TYLENOL) 1,000 mg ORAL q 6 H - dextrose 5% in NaCl 0.45% with 20 mEq/L KCl iv infusion 80 mL/hr INTRAVENOUS CONTINUOUS - famotidine 20 mg tab(s) (PEPCID) 20 mg ORAL BID - albuterol 2.5 mg /3 mL (0.083 %) 2.5 mg (PROVENTIL) 2.5 mg INHALATION q 4 H - albuterol 2.5 mg /3 mL (0.083 %) 2.5 mg (PROVENTIL) 2.5 mg INHALATION q 4 H PRN - docusate sodium 100 mg cap(s) (COLACE) 100 mg ORAL BID - keTORolac 15 mg injection (TORADOL) 15 mg INTRAVENOUS q 6 H - metoprolol tartrate (short acting) 12.5 mg tab(s) (LOPRESSOR) 12.5 mg ORAL q 12 H - ondansetron (PF) 4 mg injection (ZOFRAN) 4 mg INTRAVENOUS q 6 H PRN - enoxaparin 40 mg injection (LOVENOX) 40 mg SUBCUTANEOUS q 24 HR - NaCl 0.9% iv flush bag 20 mL INTRAVENOUS PRN - sodium chloride 0.9 % (flush) 3-5 mL (BD POSIFLUSH) 3-5 mL INTRAVENOUS q 12 H - oxyCODONE IR 5-10 mg tab(s) (ROXICODONE) 5-10 mg ORAL q 4 H PRN - fentaNYL 50 mcg/mL 25 mcg injection (SUBLIMAZE) 25 mcg INTRAVENOUS q 2 H PRN - fluticasone-vilanterol 100-25 mcg/dose 1 Inhalation (BREO ELLIPTA) 1 Inhalation INHALATION DAILY - diclofenac 1.3 % 1 Patch (FLECTOR) 1 Patch TRANSDERMAL BID And - diclofenac - REMOVE PATCH OTHER BID And - diclofenac - VERIFY PATCH OTHER q 8 H - methocarbamol 750 mg tab(s) (ROBAXIN) 750 mg ORAL TID PRN OBJECTIVE: PHYSICAL EXAM: BP 122/68 Pulse 97 Temp 36.9 ?C (98.4 ?F) (Oral) Resp 16 LMP 08/30/2021 (Approximate) SpO2 94% Affect: awake, alert and oriented General Impression: appears comfortable Respiratory Exam: Respirations: Breathing appears normal Thoracostomy tube?: removed Gastrointestinal Exam: Abdomen: + BS NG?: No DATA: Lab Results Component Latest Ref Rng AND Units 09/19/2021 Glucose 74 - 99 mg/dL 107 (H) BUN 7 - 21 mg/dL 15 Creatinine 0.58 - 0.96 mg/dL 0.81 Sodium 136 - 144 mmol/L 140 Potassium 3.7 - 5.1 mmol/L 3.9 Chloride 97 - 105 mmol/L 104 CO2 22 - 30 mmol/L 18 (L) Anion Gap 9 - 18 mmol/L 18 Calcium 8.5 - 10.2 mg/dL 8.5 eGFR >=60 mL/min/1.73m? 101 Component Latest Ref Rng AND Units 09/19/2021 WBC 3.70 - 11.00 k/uL 14.60 (H) RBC 3.90 - 5.20 m/uL 4.34 Hemoglobin 11.5 - 15.5 g/dL 12.1 Hematocrit 36.0 - 46.0 % 36.8 MCV 80.0 - 100.0 fL 84.8 MCH 26.0 - 34.0 pg 27.9 MCHC 30.5 - 36.0 g/dL 32.9 RDW-CV 11.5 - 15.0 % 14.2 Platelet Count 150 - 400 k/uL 349 MPV 9.0 - 12.7 fL 10.1 Absolute nRBC <0.01 k/uL <0.01 SIGNATURE: Ronda Mendieta APRN.FOOD SAFETY TECHNICIAN PATIENT NAME: Sandee Null DATE: September 19, 2021 TIME: 09:40 AM PAGER/CONTACT #: [facility] [phone] [facility] NURSING PROGon 09-19-2021 NURSING PROG HNO ID: [id number] Author: Mary Clark, RN Service: Nursing Author Type: Registered Nurse Type: Nursing Progress Note Filed: 09/19/2021 1:45 PM Note Text: Nursing Progress Note Patient Name: Sandee Null Patient Location: [place] [address] [address] Daily Note: see NPR for full assessment 0830 - PA Altemara up to floor to see patient, CT pulled 1330 - Went through discharge instructions, ALL aspects of care discussed, ALL questions and concerns addressed This note was completed by: Mary Clark [facility] ALLIED HEALTHon 09-18-2021 ALLIED HEALTH HNO ID: [id number] Author: Paz Frazier RT(R) Service: Radiology Author Type: Technologist Type: Allied Health Filed: 09/18/2021 7:10 PM Note Text: Radiology Service Progress Note PATIENT NAME: Sandee Null DATE OF SERVICE: September 18, 2021 TIME: 7:10 PM PATIENT IDENTITY VERIFICATION COMPLETED USING TWO (2) IDENTIFIERS: Name and Date of confirmed by patient verbally. FALL SCREENING: Has the patient had 2 falls in the last year or 1 fall with injury or currently using an Ambulatory Assistive Device (Walker, Cane, Wheelchair, Crutches, etc.)? Inpatient: Screened on floor PATIENT GENDER DATA: Female. status: : No status: NO. PATIENT RELEVANT IMPLANT DATA REVIEWED: Not Applicable RADIOLOGY DEPARTMENT: General X-ray: Exam(s) Completed: Chest X-Ray PERIPHERAL IV DATA: Not applicable SIGNED BY: Paz Frazier, RT(R) September 18, 2021 7:10 PM [facility] ANES POSTPROC EVALon 022 ANES POSTPROC EVAL HNO ID: [id number] Author: Eliezer Lr MD Service: Anesthesiology Author Type: Anesthesiologist Type: Anesthesia Postprocedure Evaluation Filed: 09/18/2021 2:36 PM Note Text: POST ANESTHESIA EVALUATION NOTE : 1990 Procedure Summary Date: 09/18/21 Room / Location: OR / OR Anesthesia Start: 737 Anesthesia Stop: 1057 Procedure: ROBOTIC THORACOSCOPY; LOBECTOMY, TOTAL OR SEGMENTAL (Left Chest) Diagnosis: Lung nodule (Lung nodule [R91.1]) Surgeons: Donald Huang MD Responsible Provider: Eliezer Lr MD Anesthesia Type: general ASA Status: 3 Anesthesia Type: general Airway Type: ETT Last Vitals Vitals Value Taken Time BP 118/64 09/18/21 1301 Temp 36.9 ?C (98.4 ?F) 09/18/21 1301 Pulse 80 09/18/21 1415 Resp 18 09/18/21 1406 SpO2 95 % 09/18/21 1406 Post Anesthesia Patient Status Patient Evaluation: PACU. PACU/ICU Patient Condition: stable. Anticipated Disposition: inpatient floor planned admission. Neurological Status: aware and responsive. Pulmonary Status: breathing comfortably on room air Airway Control: returned to baseline unsupported. Cardiovascular Status: stable. Pain Management: clinically adequate Postoperative Hydration: acceptable. Intraoperative Events: no significant anesthesia events Post Operative Nausea/Vomiting Status: no significant post operative nausea or vomiting Anesthetic Observations: Recommendation: continue current plan of care and further care per PACU/ICU/floor team. Anesthesia Observations No Documentation SIGNATURE: Eliezer Lr MD PATIENT NAME: Sandee Null DATE: September 18, 2021 TIME: 2:36 PM CSN: [id number] [facility] ANES PRE-OPon 09-18-2021 ANES PRE-OP HNO ID: [id number] Author: Pj Julieta, DO Service: Anesthesiology Author Type: Resident Type: Anesthesia Preprocedure Evaluation Filed: 09/18/2021 7:16 AM Note Text: Attestation signed by Eliezer Lr MD at 09/18/2021 9:13 AM [facility] STAFF PHYSICIAN NOTE OF PERSONAL INVOLVEMENT IN CARE I have reviewed the progress note obtained and documented by the resident and I personally participated in the jones components. I have discussed the case and management of the patient's care. The following comments revise or confirm relevant jones components of the note. I agree with the residents evaluation and plan. I discussed this with the patient directly Signature: Eliezer Lr MD Date of Service: September 18, 2021 Time of Service: 9:12 AM ANESTHESIOLOGY DAY OF SURGERY NOTE : 1990 Procedure Information Date/Time: 09/18/21 0731 Procedures: ROBOTIC THORACOSCOPY; LOBECTOMY, TOTAL OR SEGMENTAL (Left Chest) - LOWER LOBE WEDGE RESECTION, POSS LEFT LOWER LOBE SEGMENTECTOMY, POSS LEFT LOWER LOBECTOMY, MEDIASTINAL LYMPH NODE DISSECTION THORACOTOMY ADULT (Left Chest) - Atricure Cryoablation Location: OR / OR Surgeons: Donald Huang MD Estimated body mass index is 53.04 kg/m? as calculated from the following: Height as of 09/14/21: 157.5 cm (5' 2 ). Weight as of 09/14/21: 131.5 kg (290 lb). Most recent hematocrit and potassium results: Hematocrit 38.3 09/12/2021 Potassium 3.9 09/12/2021 Relevant Problems CARDIO (+) Migraines NEURO-PSYCH (+) Migraines PULMONARY (+) Asthma I - PHYSICAL EVALUATION AIRWAY Patient intubated: No. Tracheostomy tube not present Mallampati: III. TM distance: >3 FB. Neck ROM: full ROM without neurological symptoms. Mouth opening: non-adequate. Short neck: yes. Thick neck: yes DENTAL Dental findings: teeth intact. Additional exam findings: no II - ANESTHESIA PLAN ASA Score: 3 Anesthetic Plan: general Airway type: ETT The patient is a current smoker. NPO Status: adequate Monitoring plan: standard ASA and invasive hemodynamic monitoring. Monitoring method: arterial Line Postoperative analgesic plan: parenteral or oral opioids and peripheral nerve block. Informed Consent Anesthetic risks, benefits, alternatives, personnel and consent discussed: yes. Patient / Responsible Constitution Party agrees to proceed: yes Patient / Surrogate agrees to blood products: Yes Significant changes in the patient condition since the History and Physical, not otherwise documented in primary service progress note: no. Potential Anesthesia issues that may suggest increased risk of complications or contraindication to planned procedure: none. Vitals Value Taken Time BP 126/82 09/18/21 0642 Pulse 115 09/18/21 0642 Resp 18 09/18/21 0642 Temp 36.7 ?C (98.1 ?F) 09/18/21 0642 SpO2 95 % 09/18/21 0642 Facility-Administered Medications as of 09/18/2021 Medication Dose Route Frequency - midazolam 1-2 mg injection (VERSED) 1-2 mg INTRAVENOUS ONCE - acetaminophen 1,000 mg tab(s) (TYLENOL) 1,000 mg ORAL Pre-Op Once - promethazine 12.5 mg tab(s) (PHENERGAN) 12.5 mg ORAL Pre-Op Once Outpatient Medications as of 09/18/2021 Medication Sig - ipratropium-albuterol (DUONEB) 0.5 mg-3 mg(2.5 mg base)/3 mL nebu USE 1 AMPULE IN NEBULIZER 4 TIMES DAILY - albuterol HFA (PROVENTIL HFA, VENTOLIN HFA) 90 mcg/actuation inhaler Inhale 2 Puffs as instructed every 6 hours as needed. - budesonide-formoterol (SYMBICORT) 160-4.5 mcg/actuation inhaler Inhale 2 Puffs as instructed. - EPINEPHrine (EPIPEN) 0.3 mg/0.3 mL auto-injector Inject 0.3 mg intramuscularly at bedtime as needed. - tiotropium (SPIRIVA WITH HANDIHALER) 18 mcg inhalation capsule Inhale 1 capsule as instructed once daily. Use with HandiHaler. (Patient not taking: Reported on 09/14/2021 ) I have interviewed and examined the patient. I have reviewed the medical record and/or the pre-anesthesia evaluation, pertinent labs, and test results. This contains updated information obtained within 48 hours of Surgery/Procedure. SIGNATURE: Pj Rendon DO PATIENT NAME: Sandee Null DATE: September 18, 2021 TIME: 7:06 AM CSN: [id number] [facility] BRIEF OP NOTon 09-18-2021 BRIEF OP NOT HNO ID: [id number] Author: Donald Huang MD Service: Thoracic Surgery Author Type: Physician Type: Brief Op Note Filed: 09/18/2021 10:16 AM Note Text: BRIEF OPERATIVE / PROCEDURE NOTE LOG ID: [id number] SURGERY/PROCEDURE DATE: 09/18/2021 INCISION/PROCEDURE START TIME: 8:49 AM INCISION CLOSE/PROCEDURE END TIME: SURGEON(S)/PROCEDURALIST(S) AND INFORMATION TECH(S): Surgeon(s) and Role: * Donald Huang MD - Primary Physician Top Lift Trimmer: Erick Trujillo PA-C SURGERY/PROCEDURE(S): 1. Left robotic-assisted lower lobe wedge resection x 1. 2. Left cryo-analgesia procedure, interspaces 6-9. (total time 20 minutes) 3. Chest tube placement x 1 (#24-Indonesian). ANESTHESIA: General FINDINGS: 1. Firm, irregular mass in the basilar segment of the left lower lobe. ESTIMATED BLOOD LOSS: < 5 mL. SPECIMENS: 1. Left lower lobe wedge resection. COMPLICATIONS: None. PRE-OP/PRE-PROCEDURE DIAGNOSIS: 1. Left lower lobe lung nodule. POST-OP/POST-PROCEDURE DIAGNOSIS: 1. Necrotic granuloma in the left lower lobe. SIGNATURE: Donald Huang MD PATIENT NAME: Sandee Null DATE: September 18, 2021 TIME: 10:14 AM [facility] Basic metabolic 2000 panelon 09-18-2021 Anion gap [Moles/Vol] 12 mmol/L Normal 9-18 [facility] Comment on above: Order Comment: Speci men Type: BLOOD SPECIMENOrdering Facility: [facility] Address: [address] [address] Performed By: #### 2 4321-2 ####[facility] LABORATORYCLIA [id number] [place] [address] [place] Calcium [Mass/Vol] 8.2 mg/dL Low 8.5-10.2 [facility] Comment on above: Order Comment: Speci men Type: BLOOD SPECIMENOrdering Facility: [facility] Address: [address] [place] [address] Performed By: #### 2 4321-2 ####[facility] LABORATORYCLIA [id number] [place] [address] [place] Chloride [Moles/Vol] 104 mmol/L Normal 97-105 [facility] Comment on above: Order Comment: Speci men Type: BLOOD SPECIMENOrdering Facility: [facility] Address: [address] [place] [address] Performed By: #### 2 4321-2 ####[facility] LABORATORYCLIA [id number] [place] [address] [place] CO2 [Moles/Vol] 21 mmol/L Low 22-30 [facility] Comment on above: Order Comment: Speci men Type: BLOOD SPECIMENOrdering Facility: [facility] Address: [address] [place] [address] Performed By: #### 2 4321-2 ####[facility] LABORATORYCLIA [id number] [place] [address] [place] Creatinine [Mass/Vol] 0.72 mg/dL Normal 0.58-0.96 [facility] Comment on above: Order Comment: Speci men Type: BLOOD SPECIMENOrdering Facility: [facility] Address: [address] [place] [address] Performed By: #### 2 4321-2 ####[facility] LABORATORYCLIA [id number] [place] [address] [place] ESTIMATED GLOMERULAR FILTRATION RATE 116 mL/min/1.73m??? Normal >=60 [facility] Comment on above: Order Comment: Norbert eddy Type: BLOOD SPECIMENOrdering Facility: [facility] Address: [address] [phone] Result Comment: Frances mated Glomerular Filtration Rate (eGFR) is calculated using the 2020 CKD-EPI creatinine equation. This equation utilizes serum creatinine, sex, and age as parameters. The creatinine assay has traceable calibration to isotope dilution-mass spectrometry. Refer to KDIGO guidelines for clinical interpretation. In patients with unstable renal function, e.g. those with acute kidney injury, the eGFR may not accurately reflect actual GFR. Performed By: #### 2 4321-2 ####[facility] LABORATORYCLIA [id number] [place] [address] [place] Glucose [Mass/Vol] 130 mg/dL High 74-99 [facility] Comment on above: Order Comment: Norbert eddy Type: BLOOD SPECIMENOrdering Facility: [facility] Address: [address] [phone] Result Comment: The [place] Diabetes Association (ADA) provides guidance for cutoff values for fasting glucose and random glucose. The ADA defines fasting as no caloric intake for at least 8 hours. Fasting plasma glucose results between 100 to 125 mg/dL indicate increased risk for diabetes (prediabetes). Fasting plasma glucose results greater than or equal to 126 mg/dL meet the criteria for diagnosis of diabetes. In the absence of unequivocal hyperglycemia, results should be confirmed by repeat testing. In a patient with classic symptoms of hyperglycemia or hyperglycemic crisis, random plasma glucose results greater than or equal to 200 mg/dL meet the criteria for diagnosis of diabetes. Reference: Standards of Medical Care in Diabetes 2016, [place] Diabetes Association. Diabetes Care. 2016.39(Suppl 1). Performed By: #### 2 4321-2 ####[facility] LABORATORYCLIA [id number] [place] [address] [place] Potassium [Moles/Vol] 4.2 mmol/L Normal 3.7-5.1 [facility] Comment on above: Order Comment: Norbert dedy Type: BLOOD SPECIMENOrdering Facility: [facility] Address: [address] [phone] Performed By: #### 2 4321-2 ####[facility] LABORATORYCLIA [id number] [place] [address] [place] Sodium [Moles/Vol] 137 mmol/L Normal 136-144 [facility] Comment on above: Order Comment: Speci men Type: BLOOD SPECIMENOrdering Facility: [facility] Address: [address] [place] [address] Performed By: #### 2 4321-2 ####[facility] LABORATORYCLIA [id number] [place] [address] [place] Urea nitrogen [Mass/Vol] 12 mg/dL Normal 7-21 [facility] Comment on above: Order Comment: Speci men Type: BLOOD SPECIMENOrdering Facility: [facility] Address: [address] [place] [address] Performed By: #### 2 4321-2 ####[facility] LABORATORYCLIA [id number] [place] [address] [place] CBC panel Auto (Bld)on 09-18 Erythrocyte distribution width (RBC) [Ratio] 14.0 % Normal 11.5-15.0 [facility] Comment on above: Order Comment: Speci men Type: BLOOD SPECIMEN [facility] Address: [address] [place] [address] Performed By: #### 5 8410-2 #### [facility] CLIA [id number] [place] [address] [place] Hematocrit (Bld) [Volume fraction] 36.5 % Normal 36.0-46.0 [facility] Comment on above: Order Comment: Speci men Type: BLOOD SPECIMEN [facility] Address: [address] [place] [address] Performed By: #### 5 8410-2 #### [facility] CLIA [id number] [address] [place] [address] [place] Hemoglobin (Bld) [Mass/Vol] 12.0 g/dL Normal 11.5-15.5 [facility] Comment on above: Order Comment: Speci men Type: BLOOD SPECIMEN [facility] Address: [address] [place] [address] Performed By: #### 5 8410-2 #### [facility] CLIA [id number] [address] [place] [address] MCH (RBC) [Entitic mass] 27.3 pg Normal 26.0-34.0 [facility] Comment on above: Order Comment: Speci men Type: BLOOD SPECIMEN [facility] Address: [address] [place] [address] Performed By: #### 5 8410-2 #### [facility] CLIA [id number] [address] [place] [address] MCHC (RBC) [Mass/Vol] 32.9 g/dL Normal 30.5-36.0 [facility] Comment on above: Order Comment: Speci men Type: BLOOD SPECIMEN [facility] Address: [address] [place] [address] Performed By: #### 5 8410-2 #### [facility] CLIA [id number] [address] [place] [address] MCV (RBC) [Entitic vol] 83.0 fL Normal 80.0-100.0 [facility] Comment on above: Order Comment: Speci men Type: BLOOD SPECIMEN [facility] Address: [address] [place] [address] Performed By: #### 5 8410-2 #### [facility] CLIA [id number] [address] [place] [address] Nucleated RBC (Bld) [#/Vol] 10*3/uL Normal <0.01 [facility] Comment on above: Order Comment: Speci men Type: BLOOD SPECIMEN [facility] Address: [address] [place] [address] Performed By: #### 5 8410-2 #### [facility] CLIA [id number] [address] [place] [address] [place] Platelet mean volume (Bld) [Entitic vol] 10.6 fL Normal 9.0-12.7 [facility] Comment on above: Order Comment: Speci men Type: BLOOD SPECIMEN [facility] Address: [address] [place] [address] Performed By: #### 5 8410-2 #### [facility] CLIA [id number] [address] [place] [address] [facility] [place] Platelets (Bld) [#/Vol] 304 10*3/uL Normal 150-400 [facility] Comment on above: Order Comment: Speci men Type: BLOOD SPECIMEN [facility] Address: [address] [place] [address] Performed By: #### 5 8410-2 #### [facility] CLIA [id number] [address] [place] [address] [place] RBC (Bld) [#/Vol] 4.40 10*6/uL Normal 3.90-5.20 [facility] Comment on above: Order Comment: Speci men Type: BLOOD SPECIMEN [facility] Address: [address] [place] [address] Performed By: #### 5 8410-2 #### [facility] CLIA [id number] [address] [place] [address] [place] WBC (Bld) [#/Vol] 11.34 10*3/uL High 3.70-11.00 [facility] Comment on above: Order Comment: Speci men Type: BLOOD SPECIMEN [facility] Address: [address] [place] [address] Performed By: #### 5 8410-2 #### [facility] CLIA [id number] [address] [place] [address] OF [facility] CONFIRM BLOOD TYPEon 022 ABO O Normal [facility] Comment on above: Order Comment: Speci men Type: BLOOD SPECIMENOrdering Facility: [facility] Address: [address] [place] [address] Performed By: #### C ONABO ####[facility] BANKCLIA [id number] [address] Rh Nom (Bld) Positive Normal [facility] Comment on above: Order Comment: Speci men Type: BLOOD SPECIMENOrdering Facility: [facility] Address: [address] [place] [address] Performed By: #### C ONABO ####[facility] BANKCLIA [id number] [address] [id number] [facility] [place] HISTORY PHYSICALon HISTORY PHYSICAL HNO ID: [id number] Author: Erick Trujillo PA-C Service: Cardiac Surgery Author Type: Physician Top Lift Trimmer Type: HANDP Filed: 09/18/2021 7:31 AM Note Text: UPDATED HISTORY AND PHYSICAL EXAMINATION SERVICE DATE: 09/18/2021 SERVICE TIME: 724 PHYSICAL EXAM MUST BE COMPLETED ON ADMISSION The History and Physical (completed in the past 30 days) has been reviewed and the patient has been examined. The contents accurately reflect the patient's condition with the following additions or revisions since the HANDP was completed. Examination indicates no changes. This HANDP can be found in the Electronic Medical Record dated 09/12/21. SIGNATURE: Erick Trujillo PA-C PATIENT NAME: Sandee Null DATE: September 18, 2021 TIME: 7:31 AM Normal [facility] Magnesium SerPl-mCncon 09-18 Magnesium [Mass/Vol] 1.8 mg/dL Normal 1.7-2.3 [facility] Comment on above: Order Comment: Speci men Type: BLOOD SPECIMEN [facility] Address: [address] [place] [address] Performed By: #### 1 9123-9 #### [facility] CLIA [id number] [address] [id number] [facility] NURSING PROGon 09-18-2021 NURSING PROG HNO ID: [id number] Author: Mary Calrk RN Service: Nursing Author Type: Registered Nurse Type: Nursing Progress Note Filed: 09/18/2021 4:56 PM Note Text: Nursing Progress Note Patient Name: Sandee Null Patient Location: -PK2C32/FV-YC3K-01 Transfer Note: Patient transferred into room/unit PK232 in stable condition. Actions taken: No futher actions taken at this time. 1645 - patient up to bathroom, voided This note was completed by: Mary Clark [facility] NURSING PROG HNO ID: [id number] Author: Leah Caballero, MORENA Service: Nursing Author Type: Registered Nurse Type: Nursing Progress Note Filed: 09/18/2021 7:13 AM Note Text: Left single shot paravertebral neve blocks x2 Dr. Grover Patient verbalizes understanding. Tolerated procedure well report given to primary RN. [facility] NURSING PROG HNO ID: [id number] Author: Sandra Alcala RN Service: ? Author Type: Registered Nurse Type: Nursing Progress Note Filed: 09/18/2021 6:44 AM Note Text: PATIENT EDUCATION TOPIC: PROCEDURE / SURGERY: Pre-op Teaching: Logistics Protocols PATIENT NAME: Sandee Null PATIENT LOCATION: [facility] OR POOL/FV OR POOL READINESS TO LEARN COGNITIVE ABILITY: Alert and oriented MOTIVATION TO LEARN: Eager FAMILY SUPPORT: None - Unavailable/disinterested INSTRUCTION PROVIDED TO: Patient PATIENT LEARNS BEST BY: Individual Instruction FACTORS AFFECTING LEARNING: None PHYSICAL LIMITATIONS AFFECTING LEARNING: None LEARNING RESPONSE DIAGNOSIS: ADULT: Well Adult PATIENT/FAMILY RESPONSE: Verbalizes understanding of: PRE-OPERATIVE INSTRUCTIONS-Correct action to take to follow pre-operative instructions METHOD OF INSTRUCTION: Individual instruction FOLLOW-UP PLAN: Complete - No need for follow-up INSTRUCTIONAL AIDS USED: NA SUPPLEMENTAL MATERIAL PROVIDED TO PATIENT: None REFERRAL (RECOMMENDATION): None Electronically Signed By: Sandra Alcala [facility] OPERATIVE NOon 09-18-2021 OPERATIVE NO HNO ID: [id number] Author: Donald Huang MD Service: Thoracic Surgery Author Type: Physician Type: Operative Report Filed: 09/18/2021 10:41 AM Note Text: DATE: SEPTEMBER 18, 2021 NAME: SANDEE NULL MR# [id number] PREOPERATIVE DIAGNOSIS: 1. Left lower lobe lung nodule. POSTOPERATIVE DIAGNOSIS: 1. Necrotic granuloma in the left lower lobe. PROCEDURES PERFORMED: 1. Left robotic-assisted lower lobe wedge resection x 1. 2. Left cryo-analgesia procedure, interspaces 6-9. (total time 20 minutes) 3. Chest tube placement x 1 (#24-Indonesian). SURGEON: Donald Huang Jr., M.D. RESIDENT SURGEON: NONE. (there was no qualified resident to assist with this operation). INFORMATION TECH: Erick Trujillo PA-C ANESTHESIA: General endotracheal anesthesia. FINDINGS: 1. Firm, irregular mass in the basilar segment of the left lower lobe. INDICATIONS FOR OPERATION: Sandee Null is a very pleasant 31-year old female who is a former 10+ pack year smoker and who has severe asthma. She was found to have a 4 mm left lower lobe lung nodule near the left major fissure on a chest CT in [facility] in 09/2015. She was unaware that she had the nodule at that time and there was no follow up. The patient was hospitaized on 03/10/20 for possible panic attack. She was at that time. ?She was having chest pain and difficulty breathing. She had chest pain and arm pain on the left side. ?She was told she had a lung nodule at that time. She knew about the lung nodule but was told that it was larger, now measuring 9.[address] chest on 04/05/21 showed: 9 mm irregularly marginated left lower lobe nodule. ?Additional 7-8 mm left lower lobe perihilar nodules are identified. The patient underwent a PET scan on 08/13/21 that showed: Few FDG avid left upper cervical lymph nodes are probably reactive. CHEST: Stable non-FDG avid 0.9 cm left lower lobe and mildly FDG avid 0.6 cm left lower lobe perihilar pulmonary nodules. New non-FDG avid right upper lobe nodular opacity may reflect an infectious/inflammatory process. Mildly FDG avid left infrahilar lymph node may be reactive. ABDOMEN/PELVIS: No FDG avid neoplastic process. EXTREMITIES/SKELETON: No suspicious FDG avid osseous lesion. ? The patient has been referred to me to discuss surgical resection of her left lower lobe lung nodule. I personally reviewed all of the patient's pertinent diagnostic imaging and studies. I discussed performing a left robotic-assisted lower lobe wedge resection for diagnosis, possible left lower lobe anatomic segmental resection, possible anatomic left lower lobectomy, possible mediastinal lymph node dissection, possible conversion to left thoracotomy, possible blood transfusion and cryo-analgesia procedure. I did discuss the risks, options, benefits and alternatives in detail with the patient. She understands the risks and complications and decided to proceed with operation. All of her questions were answered. All consent forms were signed by the patient. I was present for and performed the jones and critical portions of the operation includin. Left robotic-assisted lower lobe wedge resection x 1. 2. Left cryo-analgesia procedure, interspaces 6-9. (total time 20 minutes) 3. Chest tube placement x 1 (#24-Indonesian). The physician assistants participated in transporting the patient to and from the operating room, positioning of the patient, creation of robotic port sites, port placement and docking the robotic patient cart, bedside curriculum assistant duties, changing instruments, passing materials into and out of the hemithorax, extraction of the specimen(s), chest tube placement, closure of incisions. OPERATION AND FINDINGS: After informed consent, the patient was transported to the main operating room and placed supine on the operating room table. A time out was called verifying the correct patient, procedure, operative site, positioning, and the need for any special equipment. After the induction of satisfactory general endotracheal anesthesia, the patient was intubated with a dual lumen endotracheal tube. Flexible fiberoptic bronchoscopy was performed. What could be visualized of the trachea appeared normal. The charley appeared sharp. Examination of the right side showed the right main stem bronchus, right upper lobe bronchus, bronchus intermedius, right middle lobe bronchus, right lower lobe bronchus, and all subsegmental bronchi on the right appeared normal with no endobronchial lesions. The flexible fiberoptic bronchoscope was removed from the right side and the left side was examined. The left main stem bronchus, left upper lobe bronchus, left lower lobe bronchus, and all subsegmental bronchi on the left appeared normal with no endobronchial lesions. The flexible fiberoptic bronchoscope was used to properly position the dual lumen endotracheal tube and removed without difficulty. The patient tolera (more content not included)... Normal [facility] SURGICAL PATHOLOGYon 022 ADDENDUM 1: Normal [facility] Comment on above: Order Comment: Speci men Type: TISSUE SPECIMEN [facility] Address: [address] [place] [phone] Result Comment: With in the necrosis, a GMS stain shows small round to oval fungal yeasts with morphologic features that fit with Histoplasma. An AFB stain is negative. Addendum electronically signed by Milo Gan MD on 09/21/2021 at 12:08 PM Performed By: #### S #### [facility] CLIA [id number] [address] [place] [address] LABORATORY CLIA [id number] [address] [place] [address] [place] CASE REPORT Normal [facility] Comment on above: Order Comment: Speci men Type: TISSUE SPECIMEN [facility] Address: [address] [place] [phone] Result Comment: Surg ica Pathology Report Case: [id number] Authorizing Provider: Donald Huang MD Collected: 09/18/2021 09:11 AM Ordering Location: [facility] Received: 09/18/2021 09:31 AM Operating Room Pathologist: Milo Gan MD Intraop: Willem Chavez MD Specimen: LUNG WEDGE RESECTION LEFT, Left Lower Lobe Wedge Performed By: #### S #### [facility] CLIA [id number] [address] [place] [address] LABORATORY CLIA [id number] [address] [place] [address] [place] CLINICAL HISTORY LOWER LOBE WEDGE RES ECTION, POSS LEFT LOWER LOBE SEGMENTECTOMY, POSS LEFT LOWER LOBECTOMY, MEDIASTINAL LYMPH NODE DISSECTION; Atricure cryoblation Normal [facility] Comment on above: Order Comment: Speci men Type: TISSUE SPECIMEN [facility] Address: [address] [place] [phone] Performed By: #### S #### [facility] CLIA [id number] [address] [place] [address] LABORATORY CLIA [id number] [address] [place] [address] DIAGNOSIS COMMENT Special stains for microorganisms (AFB and GMS) have been requested and will be reported in an addendum. [facility] Comment on above: Order Comment: Speci men Type: TISSUE SPECIMEN [facility] Address: [address] [place] [address] Performed By: #### S #### [facility] CLIA [id number] [address] [place] [address] LABORATORY CLIA [id number] [address] [place] [address] FINAL DIAGNOSIS [facility] Comment on above: Order Comment: Speci men Type: TISSUE SPECIMEN [facility] Address: [address] [place] [address] Result Comment: A. L fanny, left lower lobe, wedge resection: - Necrotizing granuloma (See comment). Performed By: #### S #### [facility] CLIA [id number] [address] [place] [address] LABORATORY CLIA [id number] [address] [place] [address] FINAL PERFORMING LAB [facility] Comment on above: Order Comment: Speci men Type: TISSUE SPECIMEN [facility] Address: [address] [place] [address] Result Comment: Diag nostic interpretation performed at [facility], [address] [place] [address] CLIA# [id number] Branch Logistics Supervisor: Tyler Simon M.D. Performed By: #### S #### [facility] CLIA [id number] [id number] LABORATORY CLIA [id number] [address] [place] [address] STATES OF [facility] GROSS DESCRIPTION Normal [facility] Comment on above: Order Comment: Speci men Type: TISSUE SPECIMEN [facility] Address: [address] [place] [address] Result Comment: A. L FANNY WEDGE RESECTION LEFT. Received fresh designated left lower lobe wedge is a portion of lung that measures 7 x 6 x 1.7 cm weighs 13 g. The parenchymal margin is inked blue (0.3 cm staple line). Sectioning through the long reveals a martinez-doan nodule that measures 0.6 x 0.6 x 0.6 cm. The nodule is located 0.6 cm from the parenchymal margin. The remaining lung parenchyma is pink-martinez and spongy. Ceramics Test Engineer sections are submitted as follows: A1 entire nodule with parenchymal margin perpendicular for frozen section A2 uninvolved lung parenchyma WE September 18, 2021 11:03 AM Intraoperative diagnosis performed at [facility], [address] [place] [address] Performed By: #### S #### [facility] CLIA [id number] [address] [place] [address] LABORATORY CLIA [id number] [address] [place] [address] INTRAOPERATIVE DIAGNOSIS Normal [facility] Comment on above: Order Comment: Speci men Type: TISSUE SPECIMEN [facility] Address: [address] [place] [address] Result Comment: A. L FANNY WEDGE RESECTION LEFT. A1 necrotic granuloma in background of lymphocytes and plasma cells (). WE September 18, 2021 11:04 AM Intraoperative diagnosis performed at [facility], [address] [place] [address] Performed By: #### S #### [facility] CLIA [id number] [address] [place] [address] LABORATORY CLIA [id number] [address] [place] [address] [place] XR CHEST 1V FRONTALon 05-03- 2022 XR CHEST 1V FRONTAL * * *Final Report* * * DATE OF EXAM: Sep 18 2021 7:09PM FVX 5290 - XR CHEST 1V FRONTAL / PROCEDURE REASON: Post-operative / post-procedure assessment, asymptomatic * * * * Physician Interpretation * * * * EXAMINATION: CHEST RADIOGRAPH (SINGLE VIEW AP OR PA) CLINICAL HISTORY: Post-operative / post-procedure assessment, asymptomatic MQ: XC1_5 Comparison: Chest x-ray 09/18/2021 RESULT: Lines, tubes, and devices: Left-sided chest tube. Lungs and pleura: No pneumothorax or pleural effusions. Patchy opacities in the lung bases bilaterally Cardiomediastinal silhouette: Normal cardiomediastinal silhouette. Other: Subcutaneous emphysema in the left neck. IMPRESSION: 1. No obvious pneumothorax. 2. Patchy opacities in the lung bases bilaterally Quenching Machine Operator: AMY Transcribe Date/Time: Sep 19 2021 7:07A Dictated by : EDWIGE MENA MD This examination was interpreted and the report reviewed and electronically signed by: EDWIGE MENA MD on Sep 19 2021 7:09AM EST [id number] [facility] XR CHEST 1V FRONTAL * * *Final Report* * * DATE OF EXAM: Sep 18 2021 11:17AM FVO [id number] - XR CHEST 1V FRONTAL / PROCEDURE REASON: Post-operative / post-procedure assessment, asymptomatic * * * * Physician Interpretation * * * * EXAMINATION: CHEST RADIOGRAPH (SINGLE VIEW AP OR PA) CLINICAL HISTORY: Left lower lobe nodule status post robotic wedge resection MQ: [id number] Comparison: Chest CT dated 04/05/2021, PET/CT dated 08/13/2021 RESULT: Lines, tubes, and devices: The left chest tube extends to the left apex, new since 04/05/2021. Lungs and pleura: There are patchy right basilar and left suprahilar infiltrates, new since 08/13/2021. No pneumothorax. Cardiomediastinal silhouette: Exaggerated cardiomediastinal silhouette. Other: No bony abnormalities. IMPRESSION: PATCHY RIGHT BASILAR AND LEFT SUPRAHILAR INFILTRATES, NEW SINCE 08/13/2021. Quenching Machine Operator: PSCB Transcribe Date/Time: Sep 18 2021 12:30P Dictated by : FRANCIA RUVALCABA MD This examination was interpreted and the report reviewed and electronically signed by: FRANCIA RUVALCABA MD on Sep 18 2021 12:33PM EST [id number] [facility] CNOVon 08-22-2021 CNOV Office Visit (FVTHOR ) SANDEE NULL ([id number]) 1990 F Date Time Provider Department 08/22/21 9:30 AM DONALD HUANG FVOR During your visit today, we recorded the following information about you: Temperature Pulse Blood pressure Weight 97.8 degrees 128/minute 127/80 132 kg Height 1.575 m Donald Huang MD 08/22/2021 10:10 AM Signed REASON FOR EVALUATION: Left lower lobe lung nodule. HPI: Sandee Null is a very pleasant 31-year old female who is a former 10+ pack year smoker and who has severe asthma. She was found to have a 4 mm left lower lobe lung nodule near the left major fissure on a chest CT in [facility] in 09/2015. She was unaware that she had the nodule at that time and there was no follow up. The patient was hospitaized on 03/10/20 for possible panic attack. She was at that time. She was having chest pain and difficulty breathing. She had chest pain and arm pain on the left side. She was told she had a lung nodule at that time. She knew about the lung nodule but was told that it was larger, now measuring 9.[address] chest on 04/05/21 showed: 9 mm irregularly marginated left lower lobe nodule. ?Additional 7-8 mm left lower lobe perihilar nodules are identified. The patient underwent a PET scan on 08/13/21 that showed: Few FDG avid left upper cervical lymph nodes are probably reactive. CHEST: Stable non-FDG avid 0.9 cm left lower lobe and mildly FDG avid 0.6 cm left lower lobe perihilar pulmonary nodules. New non-FDG avid right upper lobe nodular opacity may reflect an infectious/inflammatory process. Mildly FDG avid left infrahilar lymph node may be reactive. ABDOMEN/PELVIS: No FDG avid neoplastic process. EXTREMITIES/SKELETON: No suspicious FDG avid osseous lesion. The patient has been referred to me today to discuss surgical resection of her left lower lobe lung nodule. Clinically, the patient is well today and without complaints. ? ALLERGIES: No known drug allergies MEDICATIONS: Current Outpatient Medications on File Prior to Visit Medication Sig - famotidine (PEPCID) 10 mg tablet 20 mg. - albuterol HFA (PROVENTIL HFA, VENTOLIN HFA) 90 mcg/actuation inhaler Inhale 2 Puffs as instructed every 6 hours as needed. - budesonide-formoterol (SYMBICORT) 160-4.5 mcg/actuation inhaler Inhale 2 Puffs as instructed. - EPINEPHrine (EPIPEN) 0.3 mg/0.3 mL auto-injector Inject 0.3 mg intramuscularly at bedtime as needed. - Zuzapgli-Yj-Kaf-Fe-FA tab Take 1 tablet by mouth. - promethazine (PHENERGAN) 12.5 mg tablet Take 12.5 mg by mouth three times daily as needed. - tiotropium (SPIRIVA WITH HANDIHALER) 18 mcg inhalation capsule Inhale 1 capsule as instructed once daily. Use with HandiHaler. No current facility-administered medications on file prior to visit. PAST MEDICAL HISTORY: HISTORIES PAST MEDICAL HISTORY Diagnosis Date - Anxiety state - Asthma - Bipolar disorder (HCC) - Cigarette nicotine dependence without complication - Hypertrophic cardiomegaly - Lung nodule - OCD (obsessive compulsive disorder) - PTSD (post-traumatic stress disorder) No past surgical history on file. Social History Tobacco Use - Smoking status: Former Smoker Packs/day: 2.00 Types: Cigarettes Quit date: 12/03/2019 Years since quittin.7 - Smokeless tobacco: Never Used Vaping Use - Vaping Use: Never used Substance Use Topics - Alcohol use: Not on file - Drug use: Not on file FAMILY HISTORY Adopted: Yes Problem Relation Age of Onset - Alcohol/Drug Mother - Bipolar disorder Mother - Depression Mother - Alcohol/Drug Father - Depression Father REVIEW OF SYSTEMS: A 14-point review of systems was performed. All pertinent positives are listed in the HPI. All other systems reviewed are negative. EXAM: Physical Exam Vitals reviewed. Constitutional: General: He is not in acute distress. Appearance: Normal appearance. HENT: Head: Normocephalic and atraumatic. Nose: Nose normal. No congestion or rhinorrhea. Mouth/Throat: Mouth: Mucous membranes are moist. Pharynx: Oropharynx is clear. Eyes: General: No scleral icterus. Extraocular Movements: Extraocular movements intact. Conjunctiva/sclera: Conjunctivae normal. Pupils: Pupils are equal, round, and reactive to light. Neck: Vascular: No carotid bruit. Cardiovascular: Rate and Rhythm: Normal rate and regular rhythm. Pulses: Normal pulses. Heart sounds: Normal heart sounds. Pulmonary: Effort: Pulmonary effort is normal. No respiratory distress. Breath sounds: Normal breath sounds. No stridor. No wheezing, rhonchi or rales. Chest: Chest wall: normal. Abdominal: General: Abdomen is flat. Bowel sounds are normal. There is no distension. Palpations: Abdomen is soft. There is no mass. Tenderness: There is no abdominal tenderness. There is no right CVA (more content not included)... Normal [facility] 08-15-[address] [facility] Telephone (MEPRAD) SANDEE NULL ( ) 1990 F Date Time Provider Department 08/15/21 RADHA VANG During your visit today, we recorded the following information about you: Radha Vang MD 08/15/2021 1:13 PM Signed Discussed with Emilie Null that IR does not think that this nodule is easily reachable by IR. She still wants to a surgeon about possible excision of nodule. I will place a referral to thoracic surgery. Allergies As of Date: 08/15/2021 Noted Allergy Reaction LATEX 01/19/2017 2 - Rash LEVOFLOXACIN 04/04/2020 14 - Other: See Comments Comments: tendenitis METRONIDAZOLE 12/02/2014 11 - Vomiting Date Reviewed: 08/14/2021 Reviewed by: Miguel Lawrence RN - Fully Assessed Reason for Visit: Results [95] Primary Visit Diagnosis:Nodule of left lung [R91.1] Order(s):CONSULT TO CARDIOTHORACIC SURGERY [[id number]] Order #: [id number]: 1 Prescriptions as of 08/15/2021 - famotidine (PEPCID) 10 mg tablet 20 mg. - albuterol HFA (PROVENTIL HFA, VENTOLIN HFA) 90 mcg/actuation inhaler Inhale 2 Puffs as instructed every 6 hours as needed. - budesonide-formoterol (SYMBICORT) 160-4.5 mcg/actuation inhaler Inhale 2 Puffs as instructed. - EPINEPHrine (EPIPEN) 0.3 mg/0.3 mL auto-injector Inject 0.3 mg intramuscularly at bedtime as needed. - Aqhihtpk-Dk-Czh-Fe-FA tab Take 1 tablet by mouth. - promethazine (PHENERGAN) 12.5 mg tablet Take 12.5 mg by mouth three times daily as needed. - tiotropium (SPIRIVA WITH HANDIHALER) 18 mcg inhalation capsule Inhale 1 capsule as instructed once daily. Use with HandiHaler. Problem List As Of Date: 08/15/2021 (None) Encounter Status:Closed by RADHA VANG on 08/15/21 [facility] Telephone (IRRFV) SANDEE NULL ([id number]) 1990 F Date Time Provider Department 08/15/21 HANNAH MYERS During your visit today, we recorded the following information about you: Hannah Myers RN 08/15/2021 9:[address] Vang pagepipo to notify of lung biopsy request denial. Per Dr. Mena, Unable to get to it due to location. Call back number and physician name provided in page. Allergies As of Date: 08/15/2021 Noted Allergy Reaction LATEX 01/19/2017 2 - Rash LEVOFLOXACIN 04/04/2020 14 - Other: See Comments Comments: tendenitis METRONIDAZOLE 12/02/2014 11 - Vomiting Date Reviewed: 08/14/2021 Reviewed by: Miguel Lawrence RN - Fully Assessed Reason for Visit: Patient Update [1234] Prescriptions as of 08/15/2021 - famotidine (PEPCID) 10 mg tablet 20 mg. - albuterol HFA (PROVENTIL HFA, VENTOLIN HFA) 90 mcg/actuation inhaler Inhale 2 Puffs as instructed every 6 hours as needed. - budesonide-formoterol (SYMBICORT) 160-4.5 mcg/actuation inhaler Inhale 2 Puffs as instructed. - EPINEPHrine (EPIPEN) 0.3 mg/0.3 mL auto-injector Inject 0.3 mg intramuscularly at bedtime as needed. - Zudhkdxy-Vo-Mzj-Fe-FA tab Take 1 tablet by mouth. - promethazine (PHENERGAN) 12.5 mg tablet Take 12.5 mg by mouth three times daily as needed. - tiotropium (SPIRIVA WITH HANDIHALER) 18 mcg inhalation capsule Inhale 1 capsule as instructed once daily. Use with HandiHaler. Problem List As Of Date: 08/15/2021 (None) Encounter Status:[facility]GEOVANY[facility] SANDEE NULL ( ) 1990 F Date Time Provider Department 08/14/21 RADHA VANG During your visit today, we recorded the following information about you: Radha Vang MD 08/14/2021 1:40 PM Signed I discussed Ms. Null's pet/ct results with her. She said that she will opt for an IR guided biopsy of the nodule now. We will then repeat a chest CT in 3 months to ensure that everything stays stable. The IR guided biopsy of the lung nodule will take place at [facility] because she lives closer to that hospital. She also says that she is having uncontrolled asthma symptoms. I have asked for her to follow up in pulmonary clinic so that we can discuss this more. She also tells me that she has been unable to get her chest CT from [facility] in [place] from the time that she was there in 2019. I have reached out to Gali Garcia to try to facilitate obtaining the chest CT. Allergies As of Date: 08/14/2021 Noted Allergy Reaction LATEX 01/19/2017 2 - Rash LEVOFLOXACIN 04/04/2020 14 - Other: See Comments Comments: tendenitis METRONIDAZOLE 12/02/2014 11 - Vomiting Date Reviewed: 04/21/2020 Reviewed by: Radha yBrd) Ciera - Fully Assessed Reason for Visit: Results [95] Visit Diagnosis:Lung nodules [R91.8] Order(s):CT CHEST WO IVCON [[id number]] Order #: [id number] FUTURE IMAGING GUIDED BIOPSY LUNG [[id number]] Order #: [id number] Prescriptions as of 08/14/2021 - famotidine (PEPCID) 10 mg tablet 20 mg. - albuterol HFA (PROVENTIL HFA, VENTOLIN HFA) 90 mcg/actuation inhaler Inhale 2 Puffs as instructed every 6 hours as needed. - budesonide-formoterol (SYMBICORT) 160-4.5 mcg/actuation inhaler Inhale 2 Puffs as instructed. - EPINEPHrine (EPIPEN) 0.3 mg/0.3 mL auto-injector Inject 0.3 mg intramuscularly at bedtime as needed. - Yqswqazp-Jh-Ior-Fe-FA tab Take 1 tablet by mouth. - promethazine (PHENERGAN) 12.5 mg tablet Take 12.5 mg by mouth three times daily as needed. - tiotropium (SPIRIVA WITH HANDIHALER) 18 mcg inhalation capsule Inhale 1 capsule as instructed once daily. Use with HandiHaler. Problem List As Of Date: 08/14/2021 (None) Encounter Status:Closed by RADHA VANG on 08/14/21 [facility] No Panel Informationon 08-14 Radiology Result ACTIONABLE Abnormal [facility] 04-06-2021 CNPN Telephone (FVPRAD) SANDEE NULL ([id number]) 1990 F Date Time Provider Department 04/06/21 RADHA VANG FVPRAD During your visit today, we recorded the following information about you: Radha Vang MD 04/06/2021 3:49 PM Signed I have called and Updated Ms. Null with the results of the chest CT. She will have a PET/CT done. She is also going to try to get the results of her prior chest CT. Allergies As of Date: 04/06/2021 Noted Allergy Reaction LATEX 01/19/2017 2 - Rash LEVOFLOXACIN 04/04/2020 14 - Other: See Comments Comments: tendenitis METRONIDAZOLE 12/02/2014 11 - Vomiting Date Reviewed: 04/21/2020 Reviewed by: Radha Byrd) Ciera - Fully Assessed Reason for Visit: Results [95] Visit Diagnosis:Primary malignant neoplasm (HCC) [C80.1] Order(s):NM PET/CT SKULL-THIGH INITIAL [[id number]] Order #: [id number] FUTURE Prescriptions as of 04/06/2021 - famotidine (PEPCID) 10 mg tablet 20 mg. - albuterol HFA (PROVENTIL HFA, VENTOLIN HFA) 90 mcg/actuation inhaler Inhale 2 Puffs as instructed every 6 hours as needed. - budesonide-formoterol (SYMBICORT) 160-4.5 mcg/actuation inhaler Inhale 2 Puffs as instructed. - EPINEPHrine (EPIPEN) 0.3 mg/0.3 mL auto-injector Inject 0.3 mg intramuscularly at bedtime as needed. - Abbklpvu-Xu-Yal-Fe-FA tab Take 1 tablet by mouth. - promethazine (PHENERGAN) 12.5 mg tablet Take 12.5 mg by mouth three times daily as needed. - tiotropium (SPIRIVA WITH HANDIHALER) 18 mcg inhalation capsule Inhale 1 capsule as instructed once daily. Use with HandiHaler. Problem List As Of Date: 04/06/2021 (None) Encounter Status:Closed by RADHA VANG on 04/06/21 [facility] Covid-19 PCR (CVDTBH)on 12-17 SARS-CoV-2 (COVID-19) RNA SULLY+probe Ql (Unsp spec) Not detected Normal NOT DETECTED [facility] Comment on above: Result Comment: This test is not yet approved or cleared by the [place] FDA. When there are no FDA-approved or cleared tests available, and other criteria are met, FDA can make tests available under an emergency access mechanism called an Emergency Use Authorization (EUA). The EUA for this test is supported by the [place] of Health and Human Service's (HHS's) declaration that circumstances exist to justify the emergency use of in vitro diagnostics for the detection and/or diagnosis of the virus that causes COVID-19. This EUA will remain in effect (meaning this test can be used) for the duration of the COVID-19 declaration justifying emergency of IVDs, unless it is terminated or revoked by FDA (after which the test may no longer be used). When diagnostic testing is negative, the possibility of a false negative should be considered in the context of a patient's recent exposures and the presence of clinical signs and symptoms consistent with SARS-CoV-2. Performed By: #### C VDTB, CVDAGS #### [facility] [address] [place] [address] Sofy Young SYMPTOMATIC COVID-19 ANTIGEN on 12-28-2020 EUA Statement SEE BELOW Normal [facility] Comment on above: Result Comment: This test has not been FDA cleared or approved, but has been authorized by the FDA under an Emergency Use Authorization (EUA) for use by authorized laboratories certified under CLIA that meet the requirements to perform moderate or high complexity testing. This test has been authorized only for the detection of proteins from SARS-CoV-2, not for any other viruses or pathogens. The emergency use of this test is authorized for the duration of the declaration that circumstances exist justifying the authorization of emergency use of in vitro diagnostic tests for detection and/or diagnosis of Covid-19 under section 564(b)(1) of the Act, 21 U.S.C. 360bbb-3(b)(1), unless the declaration is terminated or authorization is revoked sooner. Performed By: #### C VDTB, CVDAGS #### [facility] [address] [place] [address] Sofy Young SARS-CoV-2 (COVID-19) RNA SULLY+probe Ql (Unsp spec) Negative Normal NEGATIVE [facility] Comment on above: Result Comment: CONF IRMATION BY PCR PENDING PER CDC GUIDELINES/ SYMPTOMATIC PATIENT. Performed By: #### C VDTBH, CVDAGS #### [facility] [address] [address] Sofy Young David 04-21-2020 CNPN Telephone (AKPRAD) SANDEE NULL ( ) 1990 F Date Time Provider Department 04/21/20 RADHA VANG) KENYATTA During your visit today, we recorded the following information about you: Radha Vang MD 04/21/2020 5:31 PM Signed As trino is , we have to wait until her third trimester to do a chest CT. Called Trino, but got voice message. Will try again later. But, have ordered chest CT for july. Allergies As of Date: 04/21/2020 Noted Allergy Reaction LATEX 01/19/2017 2 - Rash LEVOFLOXACIN 04/04/2020 14 - Other: See Comments Comments: tendenitis METRONIDAZOLE 12/02/2014 11 - Vomiting Date Reviewed: 04/21/2020 Reviewed by: Radha Byrd) Ciera - Fully Assessed Reason for Visit: Results [95] Visit Diagnosis:Lung nodules [R91.8] Order(s):CT CHEST [place] [[id number]] Order #: [id number] FUTURE Prescriptions as of 04/21/2020 Sig: FAMOTIDINE 10 MG TABLET 20 mg. ALBUTEROL SULFATE HFA 90 MCG/* Inhale 2 Puffs as instructed * BUDESONIDE-FORMOTEROL HFA 160* Inhale 2 Puffs as instructed. EPINEPHRINE 0.3 MG/0.3 ML INJ* Inject 0.3 mg intramuscularly* VITAMIN,CALCIUM,MINE* Take 1 tablet by mouth. PROMETHAZINE 12.5 MG TABLET Take 12.5 mg by mouth three t* TIOTROPIUM BROMIDE 18 MCG CAP* Inhale 1 capsule as instructe* Problem List As Of Date: 04/21/2020 (None) Encounter Status:Closed by RADHA VANG MD on 04/21/20 [facility] CNPNon 04-14-2020 CNPN Telephone (AVXRCT) SANDEE NULL ([id number]) 1990 F Date Time Provider Department 04/14/20 MISA PINZON (CT) AVXRCT During your visit today, we recorded the following information about you: RAF Baez, CT 04/14/2020 4:22 PM Signed Appt line called to get approval to scan patient for a CT Chest without contrast. Pt is [address] weeks [address] with Dr Luna who, in turn, spoke with Dr Vang and they agreed to wait until the third trimester or after . Patient notified of the decision. Allergies As of Date: 04/14/2020 Noted Allergy Reaction LATEX 01/19/2017 2 - Rash LEVOFLOXACIN 04/04/2020 14 - Other: See Comments Comments: tendenitis METRONIDAZOLE 12/02/2014 11 - Vomiting Date Reviewed: 04/04/2020 Reviewed by: Radha Byrd) Ciera - Fully Assessed Reason for Visit: Scans [867] Prescriptions as of 04/14/2020 Sig: FAMOTIDINE 10 MG TABLET 20 mg. ALBUTEROL SULFATE HFA 90 MCG/* Inhale 2 Puffs as instructed * BUDESONIDE-FORMOTEROL HFA 160* Inhale 2 Puffs as instructed. EPINEPHRINE 0.3 MG/0.3 ML INJ* Inject 0.3 mg intramuscularly* VITAMIN,CALCIUM,MINE* Take 1 tablet by mouth. PROMETHAZINE 12.5 MG TABLET Take 12.5 mg by mouth three t* TIOTROPIUM BROMIDE 18 MCG CAP* Inhale 1 capsule as instructe* Problem List As Of Date: 04/14/2020 (None) Encounter Status:Closed by MISA FLORIAN on 04/14/20 [facility]2017 Depart Summary EMERGENCY DEPARTMENT DISCHARGE SUMMARYPATIENT NAME:SANDEE NULL MRN: [id number]: 27 Years SEX: Female PHONE:[id number]: 04/03/2017 9:44 PM : 1990 ATTENDING PHYSICIAN:Ti Bautista PCP: Vladimir Estrada DO CHIEF COMPLAINT: Asthma Flare-up Allergies No Allergies DocumentedProblems Active Asthma DISCHARGE DIAGNOSIS: DISCHARGE INSTRUCTIONS: Asthma, Adult, Cujd-po-Ngfa HISTORY OF PRESENT ILLNESS:The patient is a 28-year-old female past medical history significant for asthma, right ventricular hypertrophy, congenital cardiomyopathy. Patient is in ED with complaint of shortness of breath. Patient states that it is acutely worsened within the last hour, however she has been in [place] for a business trip for several days and has been unable to fill her nebulizer treatments solution which she uses on a daily basis. Due to this the patient used her last dose yesterday and has had slowly worsening shortness of breath throughout the day. Patient states that she has been having trouble with bronchitis for several weeks at this point. Patient states that she is short of breath at this time, also complaining of some chest discomfort secondary to the shortness of breath. The patient states that she had steroids orally most recently about 3 weeks ago. Patient denies ever being intubated for her asthma, she denies hemoptysis, abdominal pain, history of blood clot in her leg or in her lungs. Social history : Nonsmoker MEDICAL DECISION MAKIN-year-old female presents to the emergency department for asthma exacerbation as described above. I also am concerned for pneumonia at this time, we'll obtain a 2 view chest x-ray. Patient was given Solu-Medrol as well as albuterol treatments in the emergency department. Chest x-rays read as negative for any acute cardiopulmonary findings no sign of pneumonia. After albuterol treatments 2 times and IM Solu-Medrol the patient felt much improved. She is no longer tachypnea, able to string several words together in a sentence, wheezing is greatly improved. I did discuss discharge with the patient which she is comfortable with, she is oxygenating well on room air. We'll give her a prescription for albuterol nebulizing solution as well as steroids taper for 9 days. I discussed the diagnosis treatment plan with patient, she verbalized agreement and understanding with the diagnosed treatment plan. Patient was discharged with strong return precautions. Notes: I saw and evaluated the patient, my collaborating physician is Dr. Terry Hutchinson . The patient's old medical records have been reviewed. The patient's presenting pulse oximetry was interpreted as: normal on room air. IMPRESSION: 1. Asthma exacerbation . Procedure PROCEDURES:Free Text Sentence DISPOSITION:Time of Departure From ER 04/03/2017 23:29 Discharge/Transfer From ER Home 01 MEDICATION LISTS: CURRENT MEDICATION LISTalbuterol (albuterol 2.5 mg/3 mL (0.083%) inhalation solution) 3 Milliliter Nebulized Medication 4 Times/Day as needed Wheezing. Refills: 0.budesonide-formoterol (Symbicort) Inhalation Twice a day.PredniSONE (predniSONE 20 mg oral tablet) 3 PO Daily x3 Days, then 2 PO Daily x3 Days, then 1 PO Daily x3 Days. Refills: 0. MEDICATIONS GIVEN DURING MEDICAL VISITdexamethasone 10 mg last dose given on 04/03/2017 at 22:13 Route: Intramuscular albuterol 2.5 mg last dose given on 04/03/2017 at 22:24 Route: Nebulized Medication albuterol 2.5 mg last dose given on 04/03/2017 at 22:43 Route: Nebulized Medication LAB RESULTS: RADIOLOGY:RADIOLOGY RESULT(S) (Please contact Medical Records office for further information): 04/03/2017 22:19 XR Chest 2 Views EXAMINATION TYPE: XR Chest 2 Views DATE OF EXAM: 04/03/2017 10:26 PMHISTORY: Cough, asthma attack. Short of breath with cough. Chest tightness today, pain level = 8/10COMPARISON: NONEFindings: The lungs are clear. Heart size, mediastinum, and pulmonary vasculature are within normal limits.Impression:Grabiel Santamaria thanks you for the opportunity to care for your patient. Workstation ID: [id number] FOLLOW UP:With: Address: When: Follow up with primary care provider Within Follow-up as needed With: Address: When: No PCP Physician, Family Practice, Internal Medicine Within Follow-up as needed Normal [facility] ED [facility] 04-04-2017 ED [place] [address] [facility] Department Discharge Instructions SANDEE NULL , Please provide this information to your Primary Care/Specialist Name : SANDEE NULL Current Date : 04/03/2017 23:29:29DOB : 1990 12:00 PM Primary Care Physician : Vladimir Estrada DO Diagnosis : Follow-Up Instructions:SANDEE NULL has been given these follow-up instructions: Provider: Specialty: Address: Date: No PCP Physician Family Practice; Internal Medicine Follow-up as needed Provider: Specialty: Address: Date: Follow up with primary care provider Follow-up as needed Laboratory Orders: None Ordered Radiology Orders: Name: Status: XR Chest 2 Views Completed Diagnostic Tests: None Ordered Procedure(s) and Patient Education(s) : Asthma, Adult, Zzlt-rq-Cqvp EMERGENCY SERVICES MEDICATION LISTLista de [facility] Name SANDEE NULL MRN [facility]-[id number] PLEASE READ THE FOLLOWING REGARDING YOUR MEDICATIONS Based on the information available during your visit we have given you the medication instructions below. Continue taking medications you took prior to your visit unless you have been told to change. Please share this information with your own doctor. Carry a list of your medications with you in case of an emergency. Update it when medications are stopped, doses are changed, or new medications (including yazo-bwd-zugzano products) are added. If you have any questions, check with your doctor. Por la informaci??n disponible fay loyola visita, las instrucciones de medicaci??n aparecen debajo. Favor de continuar tomando las medicaciones Ud. juan?? antes de loyola visita por lo menos que hay cambios. Favor de compartir esta informaci??n con loyola medico. Lleva sakina lista de medicaciones consigo por mitchell de emergenc??a. Actualiza la lista cuando Ud. aaron de nils las medicaciones, si cambian las dosis, o si hay nuevas medicaciones a??adidas (incluyendo medicaciones vendidas sin prescripci??n). Favor de preguntar a loyola medico por cualquier fransisco. THESE ARE THE MEDICATIONS YOU SHOULD BE TAKINGalbuterol (albuterol 2.5 mg/3 mL (0.083%) inhalation solution) 3 Milliliter Nebulized Medication 4 Times/Day as needed Wheezing. Refills: 0.budesonide-formoterol (Symbicort) Inhalation Twice a day.PredniSONE (predniSONE 20 mg oral tablet) 3 PO Daily x3 Days, then 2 PO Daily x3 Days, then 1 PO Daily x3 Days. Refills: 0.MEDICATIONS GIVEN DURING MEDICAL VISITdexamethasone 10 mg last dose given on 04/03/2017 at 22:13 Route: Intramuscular albuterol 2.5 mg last dose given on 04/03/2017 at 22:24 Route: Nebulized Medication albuterol 2.5 mg last dose given on 04/03/2017 at 22:43 Route: Nebulized Medication NON-MEDICATION PRESCRIPTION SCHEDULING PHONE NUMBER: MEDICATION CHANGE DETAILS (Not your Final Home Medication List) During the course of your visit, your home medication list was updated with the most current information. The details of those changes are shown below: NEW MEDICATIONSPrinted Prescriptionsalbuterol (albuterol 2.5 mg/3 mL (0.083%) inhalation solution) 3 Milliliter Nebulized Medication 4 Times/Day as needed Wheezing. Refills: 0.Comment Pred niSONE (predniSONE 20 mg oral tablet) 3 PO Daily x3 Days, then 2 PO Daily x3 Days, then 1 PO Daily x3 Days. Refills: 0.Comment UPDA ESSIE MEDICATIONSNoneUNCHANGED MEDICATIONSOther Medicationsbudesonide-formo terol (Symbicort) Inhalation Twice a day.Comment ST OP TAKING THESE MEDICATIONSNoneDO NOT TAKE UNTIL YOU TALK TO YOUR DOCTORNone [place] [id number] [facility] Department Discharge Instructions Name: SANDEE NULL Current Date: 04/03/2017 23:29:29 : 1990 12:00 PM Primary Physician: Vladimir Estrada DO We would like to thank you for choosing [facility] for your emergency medical needs. We examined and treated you today on an emergency basis only. This was not a substitute for, or an effort to provide, complete medical care. In most cases, you must let your doctor (or the doctor we referred you to) check you again. Tell your doctor about any new or lasting problems. We cannot recognize and treat all injuries or illnesses in one emergency department visit. After you leave, you should follow the directions attached. Instructions for obtaining X-rays:When following up with your doctor or a bone doctor, you may need to take copies of your x-rays that were done in the Emergency Department. If you didn't receive these upon your discharge from the emergency department, please call . When the final report becomes available and it is reviewed, the emergency department will attempt to contact you if there are any changes in your instructions. It is important that you leave accurate information with us on how to contact you. IF you cannot be contacted, YOU must contact the follow-up doctor that you were assigned to make sure that the final official x-ray report does not require a change in your treatment. Instructions for obtaining medical records:If you need a copy of your medical records for follow-up, please contact the Health Information Management Department at . Their office hours are 8 AM- 4:30 PM, Friday through Friday. Please note: Results are not immediately available. Please allow a minimum of 48 hours for documentation and results.If you were prescribed an antibiotic:Antibiotics are life-saving drugs and they need to be used properly. Your team might change your antibiotic because test results show that a different antibiotic would be better to treat your infection. Like all medications, antibiotics have side effects. Some can be serious. This includes the risk of getting an antibiotic-resistant infection later, which may be difficult to treat. Remember to take your antibiotics as prescribed. If you have any questions please talk to your healthcare team.Seatbelts:There is no doubt that seatbelts save lives. Every day, people without seatbelts have more serious injuries. Have everyone buckle up, using age appropriate seatbelts or car seats, to reduce their risk of injury.Smoking:If you do smoke, we encourage you to stop. Smoking affects all aspects of your health and the health of those around you. [facility] offers many resources to help with smoking cessation. Call the [place] Tobacco Quit Line at 0-845-DDXB-NOW ( ).High blood pressure: Your screening blood pressure today was 159 mm Hg / 92 mm Hg. Hypertension (high blood pressure) is blood pressure over 120/80. People with hypertension should contact their primary care provider within 30 days to follow up. Check your patient portal for additional blood pressure information.Immunizations:I mmunization is a way to protect against deadly infections. Discuss this with your child's brick tester, or Public Health Department. Your family practice doctor can determine if you need pneumonia or flu vaccine. The [facility] Department can be reached at .Domestic Violence:If you are a victim of domestic violence (physical, verbal, or emotional), you are not alone. Discuss this with your physician or a friend and call the [place] Domestic Violence Hotline or [place] Domestic Violence Hotline for assistance and support.You are the most important factor in your recovery. Follow the provided instructions carefully. Take your medications as prescribed. Most importantly, see a doctor again as discussed. If you have problems that we have not discussed, call or visit your doctor right away. If you do not have a primary care physician, we have provided one for you to follow up with. When you call for an appointment, please inform them that you were seen in the emergency department and the date of your visit. If you are unable to reach your doctor and are still experiencing problems, return to the emergency department. For assistance finding a primary care physician, call the Physician Referral Line at [phone] 983-RSHS (2454). Suicide Hotline:Your mental and emotional well-being is important. If you are in a mental health crisis or are having thoughts of suicide, please call the [facility] suicide hotline, anytime day or night, at 6-136-818-TWYI (0764).Community Geography Instructor: You may be contacted by your local fire department for a follow up visit from a community orthopedic technician. The community orthopedic technician can help with a home safety check; follow up care, and general home care management. Pharmacy Information:Below is a list of 24 hour pharmacies that we are aware of. We suggest that you call the specific pharmacy for their hours before traveling to a location. Hours may vary on holidays. [facility] [address], [phone], [phone], [phone], [phone], [place] [address], [place] [address], [place] [address] [place] [phone] [address], [phone], [phone], [place] [address], [phone] [address], [phone] [place] [phone] [address], [place] [place], [place] [phone] Take all medications as directed. If you need prescription assistance, contact the following agencies:?? [facility] for Prescription Assistance at or www.Premise.org?? [facility] Rx at or www.Agensysstrx.org?? [facility] is a site with many valuable coupons Patient Education Materials SANDEE NULL has been given the following patient education materials: AllergyAsthma, AdultAsthma is a condition of the lungs in which the airways tighten and narrow. Asthma can make it hard to breathe. Asthma cannot be cured, but medicine and lifestyle changes can help control it. Asthma may be started (triggered) by: ???Animal skin flakes (dander).???Dust.???Cockroa ches. ???Pollen.???Mold.???Smoke. ???Cleaning products.???Hair sprays or aerosol sprays.???[place] fumes or strong smells. ???Cold air, weather changes, and winds.???Crying or laughing hard.???Stress.???Certain medicines or drugs.???Foods, such as dried fruit, potato chips, and sparkling grape juice.???Infections or conditions (colds, flu).???Exercise.???Certain medical conditions or diseases.???Exercise or tiring activities.HOME CARE???Take medicine as told by your doctor.???Use a peak flow meter as told by your doctor. A peak flow meter is a tool that measures how well the lungs are working.???Record and keep track of the peak flow meter's readings.???Understand and use the asthma action plan. An asthma action plan is a written plan for taking care of your asthma and treating your attacks.???To help prevent asthma attacks:???Do not smoke. Stay away from secondhand smoke.???Change your heating and air conditioning filter often.???Limit your use of fireplaces and wood stoves.???Get rid of pests (such as roaches and mice) and their droppings.???Throw away plants if you see mold on them. ???Clean your floors. Dust regularly. Use cleaning products that do not smell.???Have someone vacuum when you are not home. Use a vacuum can cleaner with a HEPA filter if possible.???Replace carpet with wood, tile, or vinyl mitzi. Carpet can trap animal skin flakes and dust. ???Use allergy-proof pillows, mattress covers, and box spring covers. ???Wash bed sheets and blankets every week in hot water and dry them in a dryer. ???Use blankets that are made of polyester or cotton. ???Clean bathrooms and virgie with bleach. If possible, have someone repaint the dumont in these rooms with mold-resistant paint. Keep out of the rooms that are being cleaned and painted. ???Wash hands often. GET HELP IF:???You have make a whistling sound when breaking (wheeze), have shortness of breath, or have a cough even if taking medicine to prevent attacks.???The colored mucus you cough up (sputum) is thicker than usual. ???The colored mucus you cough up changes from clear or white to yellow, green, doan, or bloody. ???You have problems from the medicine you are taking such as:???A rash.???Itching.???Swelling .???Trouble breathing. ???You need reliever medicines more than 2?3 times a week.???Your peak flow measurement is still at 50?79% of your personal best after following the action plan for 1 hour. ???You have a fever.GET HELP RIGHT AWAY IF:???You seem to be worse and are not responding to medicine during an asthma attack. ???You are short of breath even at rest.???You get short of breath when doing very little activity.???You have trouble eating, drinking, or talking.???You have chest pain.???You have a fast heartbeat. ???Your lips or fingernails start to turn blue.???You are light-headed, dizzy, or faint.???Your peak flow is less than 50% of your personal best.MAKE SURE YOU:???Understand these instructions. ???Will watch your condition.???Will get help right away if you are not doing well or get worse.This information is not intended to replace advice given to you by your health care provider. Make sure you discuss any questions you have with your health care provider.Document Released: 10/21/2008 Document Revised: 05/26/2015 Document Reviewed: 12/02/2013[employer] Patient Education ?2016 [employer]><><><><><><><><><><>< ><><><><><><><><><><><>< ><><><><><><><><><><><><><> <><><> Patient Visit Summary Signature SANDEE NULL has been given the following list of patient education materials, prescriptions and follow-up instructions: MAHSA Alarcon MARIA G, have received the above patient education materials/instructions and have verbalized understanding: Date Time Patient Signature Date Time Provider Signature [facility] ED Physician Noteson 017 ED Physician Notes Patient: SANDEE NULL MRN: ([id number] Age: 27 years Sex: Female : 1990 Associated Diagnoses: None Author: Ti Bautista History of Present Illness The patient is a 28-year-old female past medical history significant for asthma, right ventricular hypertrophy, congenital cardiomyopathy. Patient is in ED with complaint of shortness of breath. Patient states that it is acutely worsened within the last hour, however she has been in [place] for a business trip for several days and has been unable to fill her nebulizer treatments solution which she uses on a daily basis. Due to this the patient used her last dose yesterday and has had slowly worsening shortness of breath throughout the day. Patient states that she has been having trouble with bronchitis for several weeks at this point. Patient states that she is short of breath at this time, also complaining of some chest discomfort secondary to the shortness of breath. The patient states that she had steroids orally most recently about 3 weeks ago. Patient denies ever being intubated for her asthma, she denies hemoptysis, abdominal pain, history of blood clot in her leg or in her lungs.Social history: Nonsmoker Review of Systems Systems review by me is negative except as per history of present illness. See HPI for pertinent positive and negatives.Nursing triage notes were reviewed by me. Health Status Allergies: No allergies have been recorded.. Past Medical/ Family/ Social History Medical history Past Medical History Problem List Active Asthma Surgical history: No active procedure history items have been selected or recorded.. Family history: No family history items have been selected or recorded.. Social history: Social and Psychosocial DnpchpBqkvots49/16/2017 Risk Assessment: Denies Alcohol UseSubstance Abuse04/03/2017 Risk Assessment: Denies Substance Abuse. Physical Examination Vital Signs Vital Signs/Measurements 04/03/2017 22:25 EST Pulse Rate 107 BPM HI Respiratory Rate 24 Br PM HI Pulse Oximetry 96 % NML Oxygen Delivery Room air Pulse Oximetry Type Spot check 04/03/2017 21:49 EST Temperature 97.8 Degrees F Pulse Rate 119 BPM HI Respiratory Rate 28 Br PM >HHI Pulse Oximetry 97 % Systolic BP 159 mm Hg HI Diastolic BP 92 mm Hg HI MAP-CF 114 mm Hg 04/03/2017 21:46 EST Pain Score 8 Pain Intensity Scale Numeric Rating Scale-Verbal (Adults) Pain Location Site #1 Chest Pain Characteristics Site #1 Tightness Weight 113.6 kg Weight Type Pt reported Weight Lb 250 lbs Weight Oz 7.13 oz Height 157.48 cm Height Type Pt reported Height Ft 5 ft Height in 2 Inch BSA 2.1 m2 Body Mass Index 45.8 kg/m2 . Oxygen saturation. CONSTITUTIONAL: Very uncomfortable appearing 27-year-old female sitting up in bed in moderate distress, patient is obese.HEAD: Normocephalic, atraumatic.EYES: No conjunctival injection, no icterus.EARS: External ears appear normal.NOSE: Nose appears normal.NECK: Trachea is midline.RESPIRATORY: Tachypnea, conversationally dyspneic. Patient has decreased lung sounds in bilateral upper and lower lung roach, wheezes auscultated in all lung roach.CARDIOVASCULAR: Tachycardic rate and rhythm. No edema.GASTROINTESTINAL: Abdomen is soft and nontender.NEUROLOGICAL: Awake, alert and oriented. Neurologically nonfocal.PSYCHOLOGICAL: The patient's mood and manner are appropriate. INTEGUMENTARY: Skin is warm and dry. No evidence of rash.MUSCULOSKELETAL: Full range of motion bilateral upper and lower external nares, distal pulses are 2+ and equal bilaterally. Medical Decision Making 27-year-old female presents to the emergency department for asthma exacerbation as described above. I also am concerned for pneumonia at this time, we'll obtain a 2 view chest x-ray. Patient was given Solu-Medrol as well as albuterol treatments in the emergency department. Chest x-rays read as negative for any acute cardiopulmonary findings no sign of pneumonia. After albuterol treatments 2 times and IM Solu-Medrol the patient felt much improved. She is no longer tachypnea, able to string several words together in a sentence, wheezing is greatly improved. I did discuss discharge with the patient which she is comfortable with, she is oxygenating well on room air. We'll give her a prescription for albuterol nebulizing solution as well as steroids taper for 9 days. I discussed the diagnosis treatment plan with patient, she verbalized agreement and understanding with the diagnosed treatment plan. Patient was discharged with strong return precautions. Notes: I saw and evaluated the patient, my collaborating physician is Dr. Terry Hutchinson .The patient's old medical records have been reviewed.The patient's presenting pulse oximetry was interpreted as: normal on room air. IMPRESSION:1. Asthma exacerbation. Procedure Reexamination/ Reevaluation Basic Information Patient information:: Chief Complaint from Nursing Triage Note : Chief Complaint-Triage 04/03/2017 21:46 EST Chief Complaint-Triage Asthma Flare-up . Normal [facility] ED Physician Notes PDF Normal [facility] ED Physician Notes Patient: SANDEE NULL MRN: ([id number] Age: 27 years Sex: Female : 1990 Associated Diagnoses: None Author: Alexandru Jaime MD History of Present Illness Pit note:I saw this patient in the triage area in order to expedite their evaluation. History and physical examination, interpretation of laboratory studies, EKG and imaging studies, medical decision making and initiation of therapeutics and disposition will be by an assigned caregiver.27-year-old female asthmatic from out of town did not bring any of her medicine with her and presents with a 25 minute history of shortness of breath, wheezing and dry cough.At my evaluation she is alert and appears moderately dyspneic. Lungs demonstrate bilateral expiratory wheezes with prolonged expiratory phase and only fair air movement. Normal [facility] ED Physician Notes PDF Normal [facility] XR Chest 2 Viewson 7 XR Chest 2 Views EXAMINATION TYPE: XR Chest 2 Views DATE OF EXAM: 04/03/2017 10:26 PMHISTORY: Cough, asthma attack. Short of breath with cough. Chest tightness today, pain level = 8/10COMPARISON: NONEFindings: The lungs are clear. Heart size, mediastinum, and pulmonary vasculature are within normal limits.Impression:Grabiel Santamaria thanks you for the opportunity to care for your patient. Workstation ID: [id number] FINAL REPORT Dictated By: Varinder Bartholomew MD 04/03/2017 22:30Assigned Physician: Varinder Bartholomew MD AReviewed and Electronically Signed By: Varinder Bartholomew MD 04/03/2017 22:30Transcribed by: HODA 04/03/2017 22:30Technologist: TDRy [facility] Vital Signs Date Time Vital Sign Value Performing Clinician Facility 05-27-2023 11:45-0500 Body height 157.48 cm Bessy Adam Other [facility] Other 05-27-2023 11:45-0500 Body mass index (BMI) [Ratio] 48.46 kg/m2 Bessy Adam Other [facility] Other 05-27-2023 11:45-0500 Body temperature 97.1 [degF] Bessy Adam Other [facility] Other 05-27-2023 11:45-0500 Body weight 120.2 kg Bessy Adam Other [facility] Other 05-27-2023 11:45-0500 Respiratory rate 18 /min Bessy Adam Other [facility] Other 05-27-2023 11:45-0500 SaO2% (BldA) [Mass fraction] 97 % Bessy Adam Other [facility] Other 03-18-2023 11:20-0400 Body temperature 96.91 [degF] Radha Vang MD Work Phone: [facility] 03-18-2023 11:20-0400 Body weight 124.74 kg Radha Vang MD Work Phone: [facility] 03-18-2023 11:20-0400 Diastolic blood pressure 74 mm[Hg] Radha Vang MD Work Phone: [facility] 03-18-2023 11:20-0400 Heart rate 91 /min Radha Vang MD Work Phone: [facility] 03-18-2023 11:20-0400 Respiratory rate 16 /min Radha Vang MD Work Phone: [facility] 03-18-2023 11:20-0400 SaO2% (BldA) [Mass fraction] 98 % Radha Vang MD Work Phone: [facility] 03-18-2023 11:20-0400 Systolic blood pressure 127 mm[Hg] Radha Vang MD Work Phone: [facility] 03-12-2023 07:30-0400 Body temperature 98.3 [degF] PHYSICIAN NO [facility] 03-12-2023 07:30-0400 Diastolic blood pressure 82 mm[Hg] PHYSICIAN NO [facility] 03-12-2023 07:30-0400 Heart rate 96 /min PHYSICIAN NO [facility] 03-12-2023 07:30-0400 Respiratory rate 20 /min PHYSICIAN NO [facility] 03-12-2023 07:30-0400 SaO2% (BldA) [Mass fraction] 96 % PHYSICIAN NO [facility] 03-12-2023 07:30-0400 Systolic blood pressure 120 mm[Hg] PHYSICIAN NO [facility] 03-11-2023 14:48-0400 Body height 162.56 cm PHYSICIAN NO [facility] 03-10-2023 09:00-0400 Body weight 126.09 kg PHYSICIAN NO [facility] 10-19-2021 09:15-0400 Body height 157.5 cm Erick Trujillo PA-C Work Phone: [facility] 10-19-2021 09:15-0400 Body weight 129.73 kg Erick Trujillo PA-C Work Phone: [facility] 10-19-2021 09:15-0400 Diastolic blood pressure 91 mm[Hg] Erick Trujillo PA-C Work Phone: [facility] 10-19-2021 09:15-0400 Heart rate 100 /min Erick Trujillo PA-C Work Phone: [facility] 10-19-2021 09:15-0400 SaO2% (BldA) [Mass fraction] 96 % Erick Trujillo PA-C Work Phone: [facility] 10-19-2021 09:15-0400 Systolic blood pressure 141 mm[Hg] Erick Trujillo PA-C Work Phone: [facility] 09-14-2021 09:15-0400 Body height 157.5 cm Donald Huang MD Work Phone: [facility] 09-14-2021 09:15-0400 Body weight 131.54 kg Donald Huang MD Work Phone: [facility] 09-14-2021 09:15-0400 Diastolic blood pressure 84 mm[Hg] Donald Huang MD Work Phone: [facility] 09-14-2021 09:15-0400 Heart rate 103 /min Donald Huang MD Work Phone: [facility] 09-14-2021 09:15-0400 SaO2% (BldA) [Mass fraction] 100 % Donald Huang MD Work Phone: [facility] 09-14-2021 09:15-0400 Systolic blood pressure 132 mm[Hg] Donald Huang MD Work Phone: [facility] 09-12-2021 12:30-0400 Body height 157.5 cm Pacc 3 Work Phone: [facility] 09-12-2021 12:30-0400 Body temperature 97.59 [degF] Pacc 3 Work Phone: [facility] 09-12-2021 12:30-0400 Body weight 131.54 kg Pacc 3 Work Phone: [facility] 09-12-2021 12:30-0400 Diastolic blood pressure 79 mm[Hg] Pacc 3 Work Phone: [facility] 09-12-2021 12:30-0400 Heart rate 98 /min Pacc 3 Work Phone: [facility] 09-12-2021 12:30-0400 Respiratory rate 20 /min Pacc 3 Work Phone: [facility] 09-12-2021 12:30-0400 SaO2% (BldA) [Mass fraction] 100 % Pacc 3 Work Phone: [facility] 09-12-2021 12:30-0400 Systolic blood pressure 127 mm[Hg] Pacc 3 Work Phone: [facility] 08-22-2021 09:29-0400 Body height 157.5 cm Donald Huang MD Work Phone: [facility] 08-22-2021 09:29-0400 Body temperature 97.81 [degF] Donald Huang MD Work Phone: [facility] 08-22-2021 09:29-0400 Body weight 132.04 kg Donald Huang MD Work Phone: [facility] 08-22-2021 09:29-0400 Diastolic blood pressure 80 mm[Hg] Donald Huang MD Work Phone: [facility] 08-22-2021 09:29-0400 Heart rate 128 /min Donald Huang MD Work Phone: [facility] 08-22-2021 09:29-0400 SaO2% (BldA) [Mass fraction] 97 % Donald Huang MD Work Phone: [facility] 08-22-2021 09:29-0400 Systolic blood pressure 127 mm[Hg] Donald Huang MD Work Phone: [facility] Encounters Encounter Date Encounter Type Care Provider Facility Start: 11-13-2023 End: 11-13-2023 Emergency department patient visit [facility] Start: 11-05-2023 End: 11-06-2023 Emergency department patient visit YULISA TOLEDO [facility] Start: 09-06-2023 End: 09-07-2023 Emergency department patient visit KIAH PRO [facility] Start: 09-06-2023 End: 09-07-2023 Emergency department patient visit [facility] Start: 06-25-2023 End: 06-26-2023 ambulatory SATISH ESCALANTE [facility] Start: 06-24-2023 End: 06-26-2023 Emergency department patient visit ALISON PAREKH [facility] Start: 06-24-2023 End: 06-25-2023 ambulatory [facility] Start: 05-27-2023 End: 05-27-2023 ambulatory Bessy Adam Other [employer] Other Start: 05-27-2023 Office outpatient vi sit 15 minutes Bessy Adam [facility] Start: 05-26-2023 ambulatory Hardy Briones acility:[facility] Start: 03-18-2023 End: 03-18-2023 ambulatory RADHA VANG Facility:[facility] Start: 03-18-2023 End: 03-18-2023 Patient encounter procedure Radha Vang MD Work Phone: Pulmonary Medicine Comment on above: Lung nodules (Primar y Dx); Moderate persistent asthma without complication; BMI 50.0-59.9, adult ([facility]); Patient non adherence; Nodule of left lung; 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 ([facility]) Start: 03-10-2023 End: 03-12-2023 Evaluation and management of inpatient Hardy Jones Facility:[facility] Start: 03-10-2023 End: 03-12-2023 Evaluation and management of inpatient PHYSICIAN DAISHA [facility] Work Phone: Start: 10-19-2021 End: 10-19-2021 Patient encounter procedure Erick Trujillo PA-C Work Phone: Cardiothoracic Comment on above: Left lower lobe pulm onary nodule (Primary Dx) Start: 09-22-2021 Orders Only Rob Scott PA-C Work Phone: Cardiothoracic Comment on above: Acute post-operative pain (Primary Dx) Start: 09-21-2021 ambulatory Donald Huang MD Work Phone: Thoracic Surgery Comment on above: Final Pathology Repo rt Start: 09-21-2021 E-mail encounter fro m caregiver Donald Huang MD Work Phone: [facility] Start: 09-21-2021 End: 09-21-2021 ambulatory [facility] Facility: Start: 09-19-2021 Orders Only Donald Huang MD Work Phone: Thoracic Surgery Comment on above: Lung nodule (Primary Dx) Status post lung ulkasz marilyn (Primary Dx) Start: 09-14-2021 End: 09-14-2021 Patient encounter procedure Donald Huang MD Work Phone: Thoracic Surgery Comment on above: Lung nodule (Primary Dx) Start: 09-12-2021 End: 09-12-2021 [facility] 3 Work Phone: Pre Anesthesia Comment on above: Pre-op evaluation (P rimary Dx); Lung nodule; Migraine without status migrainosus, not intractable, unspecified migraine type; Uncomplicated asthma, unspecified asthma severity, unspecified whether persistent; Former smoker; Class 3 severe obesity due to excess calories without serious comorbidity with body mass index (BMI) of 50.0 to 59.9 in adult ([facility]); BMI 50.0-59.9, adult ([facility]); PTSD (post-traumatic stress disorder); Bipolar 1 disorder ([facility]); Smoker Start: 09-12-2021 End: 09-12-2021 Preprocedural examination done [facility] 3 Work Phone: Pre Anesthesia Start: 09-11-2021 End: 09-11-2021 ambulatory Pulm 2 Work Phone: Pulmonary Medicine Comment on above: Spirometry Start: 09-11-2021 End: 09-11-2021 Patient encounter procedure Pulm Lab [facility] 2 Work Phone: WILFREDO HERNANDEZ [facility] Start: 09-11-2021 End: 09-11-2021 Patient encounter status Pulm 2 Work Phone: Pulmonary Medicine Start: 08-28-2021 ambulatory Donald Huang MD Work Phone: Thoracic Surgery Start: 08-28-2021 Patient encounter status Donald Huang MD Work Phone: Thoracic Surgery Start: 08-22-2021 End: 08-22-2021 Patient encounter procedure Donald Huang MD Work Phone: Thoracic Surgery Comment on above: Lung nodule (Primary Dx) Start: 08-15-2021 Telephone encounter Hannah Myers RN F V INTERVENTIONAL RADIOLOGY Comment on above: Patient Update Results Start: 08-13-2021 End: 08-13-2021 Subsequent hospital visit by physician Pet Injection [facility] Mobile [address] Comment on above: Primary malignant ne oplasm (HCC) [C80.1] Start: 06-22-2021 Encounter for other preprocedural examination DR FACUNDO WELSH [facility] Start: 06-08-[address] FACUNDO WELSH Facility :[facility] Start: 06-04-[address] FACUNDO WELSH Facility :[facility] Start: 06-01-2021 End: 06-02-[address] FACUNDO WELSH Facility:[facility] Start: 06-01-2021 End: 06-02-2021 Encounter for other preprocedural examination DR FACUNDO WELSH Facility:[facility] Start: 02-16-2021 End: 02-17-[address] FACUNDO WELSH Facility:[facility] Start: 12-28-2020 End: 12-28-2020 ambulatory BERNADETTE NULL Facility:[facility] Start: 11-24-[address] FACUNDO WELSH Facility :[facility] Start: 04-03-2017 End: 04-04-2017 Emergency department patient visit VLADIMIR ESTRADA Facility:[facility] Start: 03-04-2017 End: 03-05-2017 Ambulatory DEFAULT PHYSICIAN Facility:[facility] Procedures Date Procedure Procedure Detail Performing Clinician Start: 09-11-2021 Co diffusing capacity L massimo Huang MD Work Phone: Start: 08-13-[address] attenuation skull base mid-thigh Radha Vang MD Work Phone: H/O: surgery Status post lung surgery Donald Huang MD Work Phone: Plan of Treatment Date Care Activity Detail Author Start: 10-09-2030 Urine microalbumin profile [facility] Start: 03-12-2023 [facility] Start: 03-10-2023 Hospital admission [facility] Start: 01-17-2023 Covid-19 Vaccine ( season) Covid-19 Vaccine ( season) [facility] Start: 01-17-2023 Influenza vaccination INFLUENZA (#1) [facility] Start: 05-19-2022 DEPRESSION ASSESSMENT DEPRESSION ASS ESSMENT [facility] Start: 02-03-2022 HPV TESTING HPV TESTING [facility] Start: 01-17-2022 Influenza vaccination INFLUENZA (Sea son Ended) [facility] Start: 09-11-2021 End: 08-28-2022 aPTT in Platelet poor plasma by Coagulation assay ACTIVATED PTT Lab STAT Preoperative testing Expected: 09/11/2021 (Approximate), Expires: 08/28/2022 [facility] Work Phone: Comment on above: Expected: 09/11/2021 (Approximate), Expires: 08/28/2022 Start: 09-11-2021 End: 08-28-2022 CBC W Auto Differential panel - Blood CBC + DIFF Lab STAT Preoperative testing Expected: 09/11/2021 (Approximate), Expires: 08/28/2022 [facility] Work Phone: Comment on above: Expected: 09/11/2021 (Approximate), Expires: 08/28/2022 Start: 09-11-2021 End: 08-28-2022 Comprehensive metabolic 2000 panel - Serum or Plasma COMP METABOLIC PANEL Lab STAT Preoperative testing Expected: 09/11/2021 (Approximate), Expires: 08/28/2022 [facility] Work Phone: Comment on above: Expected: 09/11/2021 (Approximate), Expires: 08/28/2022 Start: 09-11-2021 End: 08-28-2022 CONFIRM BLOOD TYPE CONFIRM BLOOD TYPE Blood Bank Routine Preoperative testing Expected: 09/11/2021 (Approximate), Expires: 08/28/2022 [facility] Work Phone: Comment on above: Expected: 09/11/2021 (Approximate), Expires: 08/28/2022 Start: 09-11-2021 End: 08-28-2022 ECG COMPLETE ECG COMPLETE ECG Routine Preoperative testing Expected: 09/11/2021 (Approximate), Expires: 08/28/2022 [facility] Work Phone: Comment on above: Expected: 09/11/2021 (Approximate), Expires: 08/28/2022 Start: 09-11-2021 End: 08-28-2022 PT panel - Platelet poor plasma by Coagulation assay PROTHROMBIN TIME/PT Lab STAT Preoperative testing Expected: 09/11/2021 (Approximate), Expires: 08/28/2022 [facility] Work Phone: Comment on above: Expected: 09/11/2021 (Approximate), Expires: 08/28/2022 Start: 09-11-2021 End: 11-11-2021 TYPE AND SCREEN,30 DAY TYPE AND SCREEN,30 DAY Blood Bank Routine Preoperative testing Expected: 09/11/2021 (Approximate), Expires: 11/11/2021 [facility] Work Phone: Comment on above: Expected: 09/11/2021 (Approximate), Expires: 11/11/2021 Start: 09-11-2021 End: 08-28-2022 URINALYSIS, DIPSTICK ONLY URINALYSIS, DIPSTICK ONLY Lab STAT Preoperative testing Expected: 09/11/2021 (Approximate), Expires: 08/28/2022 [facility] Work Phone: Comment on above: Expected: 09/11/2021 (Approximate), Expires: 08/28/2022 Start: 08-28-2021 End: 08-28-2022 SARS-CoV-2 (COVID-19) RNA [Presence] in Respiratory specimen by SULLY with probe detection PRE-PROCEDURE & PRE-OPERATIVE COVID Microbiology Routine Preoperative testing Expected: 08/28/2021, Expires: 08/28/2022 [facility] Work Phone: Comment on above: Expected: 08/28/2021 , Expires: 08/28/2022 Start: 07-26-2021 COVID-19 VACCINE (4 - Moderna series) COVID-19 VACCINE (4 - Moderna series) [facility] Start: 01-17-2021 Influenza vaccination INFLUENZA (#1) [facility] Start: 02-03-2013 PAP TESTING PAP TESTING [facility] Start: 02-03-2011 Urine microalbumin profile DTAP,TDAP,TD (1 - Tdap) [facility] Start: 02-03-2010 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 DISEASE VISIT ANNUAL PCP TEAM CHRONIC DISEASE VISIT [facility] Start: 02-03-2010 HEPATITIS C SCREENING HEPATITIS C SC REENING [facility] Start: 02-03-2010 HIV SCREENING HIV SCREENING [facility] Start: 2004 Adult depression screening assessment DEPRESSION SCREENING [facility] Start: 02-03-1998 PNEUMOCOCCAL (1 - PCV) PNEUMOCOCCAL (1 - PCV) [facility] Start: 02-03-1998 Pneumococcal vaccination Pneum ococcal Vaccine (1 - PCV) [facility] End: 04-16-2024 Ct thorax w/o contrast material CT CHEST WO IVCON Radiology Routine Lung nodules 1 Occurrences starting 03/18/2023 until 04/16/2024 [facility] Work Phone: Comment on above: 1 Occurrences starti ng 03/18/2023 until 04/16/2024 End: 09-27-2022 LUNG DIFFUSION CAPACITY (DLCO) LUNG DIFFUSION CAPACITY (DLCO) PFT Routine Preoperative testing 1 Occurrences starting 08/28/2021 until 09/27/2022 [facility] Work Phone: Comment on above: 1 Occurrences starti ng 08/28/2021 until 09/27/2022 LUNG DIFFUSION CAPAC ITY (DLCO) LUNG DIFFUSION CAPACITY (DLCO) PFT Routine Preoperative testing 09/11/2021 2:21 PM EDT [facility] Work Phone: Patient Education Depression, Ad ult (DC) Bipolar Disorder (DC) Suicide Prevention [facility] Behavioral Health [place] Instructions [facility] Work Phone: Patient referral [facility] Work Phone: Pulmonary rehabilita tion pro PULMONARY REHABILITATION PRO Procedures Routine Status post lung surgery Ordered: 09/19/2021 [facility] Work Phone: Comment on above: Ordered: 09/19/2021 End: 10-19-2022 Radiologic exam chest 2 views XR CHEST 2V FRONTAL/LAT Radiology Routine Lung nodule 1 Occurrences starting 09/19/2021 until 10/19/2022 [facility] Work Phone: Comment on above: 1 Occurrences starti ng 09/19/2021 until 10/19/2022 End: 09-27-2022 SPIROMETRY BASELINE ONLY SPIROMETRY BASELINE ONLY PFT Routine Preoperative testing 1 Occurrences starting 08/28/2021 until 09/27/2022 [facility] Work Phone: Comment on above: 1 Occurrences starti ng 08/28/2021 until 09/27/2022 [facility] Immunizations Immunization Date Immunization Notes Care Provider [facility] 03-11-2023 influenza, injectabl e, quadrivalent, preservative free PHYSICIAN [facility] 10-09-2020 tetanus toxoid, redu rosana diphtheria toxoid, and acellular pertussis vaccine, adsorbed Donald Huang MD Work Phone: [facility] 04-05-2019 influenza, injectabl e, quadrivalent, preservative free Donald Huang MD Work Phone: [facility] 06-12-2015 influenza, injectabl e, quadrivalent, preservative free Donald Huang MD Work Phone: [facility] 06-12-2015 measles, mumps and rubella virus vaccine Donald Huang MD Work Phone: [facility] 01-25-2004 measles, mumps and rubella virus vaccine Donald Huang MD Work Phone: [facility] 01-25-2004 tetanus toxoid, adsorbed Donald Huang MD Work Phone: [facility] 08-11-1996 diphtheria, tetanus toxoids and acellular pertussis vaccine, unspecified formulation Donald Huang MD Work Phone: [facility] 08-11-1996 hepatitis B vaccine, pediatric or pediatric/adolescent dosage Donald Huang MD Work Phone: [facility] 08-11-1996 measles, mumps and rubella virus vaccine Donald Huang MD Work Phone: [facility] 08-11-1996 poliovirus vaccine, unspecified formulation Donald Huang MD Work Phone: [facility] 01-26-1996 diphtheria, tetanus toxoids and acellular pertussis vaccine, unspecified formulation Donald Huang MD Work Phone: [facility] 01-26-1996 hepatitis B vaccine, pediatric or pediatric/adolescent dosage Donald Huang MD Work Phone: [facility] 07-28-1995 haemophilus influenz ae type b vaccine, conjugate unspecified formulation Donald Huang MD Work Phone: [facility] 07-28-1995 hepatitis B vaccine, pediatric or pediatric/adolescent dosage Donald Huang MD Work Phone: [facility] 07-28-1995 measles, mumps and rubella virus vaccine Donald Huang MD Work Phone: [facility] 07-28-1995 poliovirus vaccine, unspecified formulation Donald Huang MD Work Phone: [facility] 1992 diphtheria, tetanus toxoids and acellular pertussis vaccine, unspecified formulation Donald Huang MD Work Phone: [facility] 1992 haemophilus influenz ae type b vaccine, conjugate unspecified formulation Donald Huang MD Work Phone: [facility] 1992 poliovirus vaccine, unspecified formulation Donald Huang MD Work Phone: [facility] 1992 diphtheria, tetanus toxoids and acellular pertussis vaccine, unspecified formulation Donald Huang MD Work Phone: [facility] 1992 haemophilus influenz ae type b vaccine, conjugate unspecified formulation Donald Huang MD Work Phone: [facility] 1992 poliovirus vaccine, unspecified formulation Donald Huang MD Work Phone: [facility] Payers Date Payer Category Payer Self-pay [id number] 2019 Medicaid [facility] [id number] 2019-Present [phone] [address] [place] [address] Medicaid [id number] 2019 Medicaid [id number] 2017 Unknown [id number] 1992 Unknown [id number]. 593 1992 Unknown [id number] [id number]. 593 1992 Unknown [id number] [id number]. 593 1992 Unknown [id number] [id number]. 593 1992 Unknown [id number] [id number]. 593 1992 Unknown [id number] [id number]. 593 1992 Unknown [id number] 2.16.840.1.720097.3.579.2. 593 1992 Unknown [id number] 2.16.840.1.951522.3.579.2. 1286 1992 Unknown [id number] 2.16.840.1.405176.3.579.2. 1286 1992 Unknown [id number] [id number]. 1286 1992 Unknown [id number] [id number]. 1286 1959 Self-pay [id number] 1959 Unknown [id number] Private Health Insurance [employer] [id number] Unknown Unknown [facility] [id number] Unknown [id number] 531 Unknown [id number]. 531 Social History Date Type Detail Facility Start: [facility]04[facility] Start: 03-10-2023 End: 12-03-2019 History of tobacco use Current smoker [facility] End: 12-03-2019 History of tobacco use Cigarette Smoker [facility] Start: 04-04-2020 End: 03-18-2023 Cigarettes smoked current (pack per day) - Reported 2 [facility] Start: 04-04-2020 End: 09-12-2021 Tobacco use and exposure Smokeless tobacco non-user [facility] Start: 1990 Sex Assigned At Female C [facility] Start: 08-12-2021 End: 09-18-2021 Exposure to SARS-CoV-2 (event) Not sure [facility] Start: 09-12-2021 Tobacco smoking stat [facility] Smokes tobacco daily [facility] Start: 09-12-2021 End: 10-19-2021 Alcohol intake Ex-drinker (finding) [facility] Start: 04-04-2020 End: 03-18-2023 Tobacco use panel [facility] National Score (1-10 0), lower number is lower risk Not on file [facility] Start: 04-04-2020 Gender identity Identifies as female gender (finding) [facility] Start: 04-04-2020 Sexual orientation Choose not to dis close [facility] Goals Date Patient Goal Desired Activity /State Functional Status Date Assessment Result Facility 03-12-2023 Functional status Patient at Baseline [facility] Work Phone: Mental Status Date Assessment Result Facility 03-12-2023 Cognitive function Cognitive Sta tus Patient at Baseline [facility] Work Phone: Clinical Notes 08-13-2021 to 05-27-2023 Note Date & Type Note Facility 05-27-2023 Evaluation note Encounter Date Diagnosis Assessment Notes May, Paronychia of finger of right hand (ICD-10 - L03.011) Soak the infected finger in warm water and use warm compresses. You are being prescribe an oral antibiotic, Keflex, to take 3 x day for 5 days for the acute infection as you state topical antibiotics have not been helping. Take the antibiotic until it is completed, do not stop it early. Drink plenty of water. Follow up with your primary care provider if symptoms persist. Patient is 33 yo female who presents with complaints of infection at the base of the nail with redness, pain, swelling and purulent drainage that has persisted for over a week despite applying topical antibiotic ointments at home. Exam indicated bacterial infection, paronychia to the right 4th digit. She is being prescribed Keflex orally 3 x daily for 5 days for the infection. She is to follow up with her PCP, apply warm compresses or warm soaks of the finger. [employer] Other 10-31-2023 NoteHNO ID: [id number] Author: Radha Vang MD Service: ? Author Type: Physician Type: Progress Notes Filed: 03/18/2023 12:26 PM Note Text: ESTABLISHED PATIENT FOLLOW-UP SERVICE DATE: 03/18/2023 PRIMARY CARE PHYSICIAN: Qasim Daley MD ASSESSMENT AND PLAN: Moderate persistent eosinophilic asthma - Currently well controlled as long as she takes her inhaler as prescribed. Spirometry from 03/2020 did demonstrated mild obstruction with FEV1 of 104 with BD challenge in 2019. In 2021, eosinophils were 0.52. No IgE on file. HCUP: 1 hospitalization for asthma this year.Steroids while in the hospital (2022). Hospitalization was due to non-adherence. Symbicort 160-4.5 mcg/act 2 puffs BID Albuterol 2 puffs INH q 6 hours PRN BMI 50.30- monitor as this will contribute to her dyspnea Non-adherence- Has history of non-adherence. Lost to follow up since 2019 for me personally. Is very busy with 7 children. 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 Surgery was Dr. Huang. Resolved issue. SUBJECTIVE CHIEF COMPLAINT: asthma HPI:Sandee Null is a 33 year old female here for follow appointment for Asthma. Since the prior visit: She had a left robotic assisted lower lobe wedge resection. Final pathology showed necrotizing granuloma. Not short of breath. She takes symbicort and a rescue inhaler. She takes that off and over since the past several months. She went to the ED in 01/2023 and she antibiotics and steroids.. She then went back to the ED and was hospitalized for her breathing. In the hospital, she was given high -dose IV steroids as well as nebulizer treatments. She tells me that prior to that hospitalization, she just was not using her inhaler. ASTHMA CONTROL TEST Date: 03/18/2023 In the last 4 weeks, how much of the time did your asthma keep you from getting as much done at work or home that you wanted to do? None of the time (5) In the last 4 weeks, how often have you had shortness of breath? Once or twice per week (4) In the last 4 weeks, how often did your asthma symptoms (wheezing, coughing, shortness of breath, chest tightness or pain) wake you up at night or earlier than usual? Not at all (5) In the last 4 weeks, how often have you used your rescue inhaler or nebulizer medication (such as Albuterol, Proventil, Ventolin, Maxair, Xoponex, or Primatene Mist)? Not at all (5) In the last 4 weeks, how would you rate your asthma control? Well controlled (4) Total: more than 20 SOCIAL HISTORY: Social History Tobacco Use Smoking status: Every Day Packs/day: 1.00 Years: 15.00 Additional pack years: 0.00 Total pack years: 15.00 Types: Cigarettes Smokeless tobacco: Never Vaping Use Vaping Use: Never used Substance Use Topics Alcohol use: Not Currently Drug use: Never MEDICATIONS: Prior to Admission Medications (Not in a hospital admission) CURRENT ALLERGIES: ALLERGIES Allergen Reactions Adhesive Tape-Silic* Other: See Comments Blisters, peeling skin Latex Rash Levofloxacin Other: See Comments tendenitis Metronidazole Vomiting Vancomycin Hives COMPLETE REVIEW OF SYSTEMS: All other reviewed and negative other than HPI. OBJECTIVE PHYSICAL EXAM: BP 127/74 Pulse 91 Temp (Src) 96.9 (Temporal) Resp 16 Wt 275 lb (124.7kg) SpO2 98% LMP 08/30/2021 General appearance: well appearing, alert, and in no acute distress Nose/Sinuses: Nares normal, septum midline, mucosa normal, no drainage or sinus tenderness Oropharynx: Lips, mucosa and tongue normal, teeth and gums normal, oropharynx normal. Respiratory: lungs clear to auscultation no wheezing or rhonchi Cardiovascular: Negative. RRR without murmur, gallop, or rubs. No ectopy DATA: Diagnostic tests reviewed for today's visit, films/specimens were personally reviewed by me: Most recent labs SIGNATURE: Radha Vang MD PATIENT NAME: Sandee Null DATE: March 18, 2023 TIME: 11:33 AM PAGER/CONTACT #[facility] [phone]* Patient Instructions* Radha Vang MD - 03/18/2023 11:48 AM EDT Please take the symbicort inhaler two puffs twice daily. Take albuterol as needed. Radha Vang MD With questions or concerns, please call the following: [place] [facility] [phone] Press Option #2 for pulmonary [facility] History of Present illness Narrative* Radha Vang MD - 03/18/2023 11:33 AM EDT ESTABLISHED PATIENT FOLLOW-UP SERVICE DATE: 03/18/2023 PRIMARY CARE PHYSICIAN: Qasim Daley MD ASSESSMENT AND PLAN: Moderate persistent eosinophilic asthma - Currently well controlled as long as she takes her inhaler as prescribed. Spirometry from 03/2020 did demonstrated mild obstruction with FEV1 of 104 with BD challenge in 2019. In 2021, eosinophils were 0.52. No IgE on file. HCUP: 1 hospitalization for asthma this year.Steroids while in the hospital (2022). Hospitalization was due to non-adherence. Symbicort 160-4.5 mcg/act 2 puffs BID Albuterol 2 puffs INH q 6 hours PRN BMI 50.30- monitor as this will contribute to her dyspnea Non-adherence- Has history of non-adherence. Lost to follow up since 2019 for me personally. Is very busy with 7 children. 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 Surgery wasDr. Huang. Resolved issue. SUBJECTIVE CHIEF COMPLAINT: asthma HPI:Sandee Null is a 33 year old female here for follow appointment for Asthma. Since the prior visit: She had a left robotic assisted lower lobe wedge resection. Final pathology showed necrotizing granuloma. Not short of breath. She takes symbicort and a rescue inhaler. She takes that off and over since the past several months. She went to the ED in 01/2023 and she antibioticsand steroids.. She then went back to the ED and was hospitalized for her breathing. In the hospital, she was given high -dose IV steroids as well as nebulizer treatments. She tells me that prior to that hospitalization, she just was not using her inhaler. ASTHMA CONTROL TEST Date: 03/18/2023 In the last 4 weeks, how much of the time did your asthma keep you from getting as much done at work or home that you wanted to do? None of the time (5) In the last 4 weeks, how often have you had shortness of breath? Once or twice per week (4) In the last 4 weeks, how often did your asthma symptoms (wheezing, coughing, shortness of breath, chest tightness or pain) wake you up at night or earlier than usual? Not at all (5) In the last 4 weeks, how often have you used your rescue inhaler or nebulizer medication (such as Albuterol, Proventil, Ventolin, Maxair, Xoponex, or Primatene Mist)? Not at all (5) In the last 4 weeks, how would you rate your asthma control? Well controlled (4) Total: more than 20 SOCIAL HISTORY: Social History Tobacco Use Smoking status: Every Day Packs/day: 1.00 Years: 15.00 Additional pack years: 0.00 Total pack years: 15.00 Types: Cigarettes Smokeless tobacco: Never Vaping Use Vaping Use: Never used Substance Use Topics Alcohol use: Not Currently Drug use: Never MEDICATIONS: Prior to Admission Medications (Not in a hospital admission) CURRENT ALLERGIES: ALLERGIES Allergen Reactions Adhesive Tape-Silic* Other: See Comments Blisters, peeling skin Latex Rash Levofloxacin Other: See Comments tendenitis Metronidazole Vomiting Vancomycin Hives COMPLETE REVIEW OF SYSTEMS: All other reviewed and negative other than HPI. OBJECTIVE PHYSICAL EXAM: BP 127/74 Pulse 91 Temp (Src) 96.9 (Temporal) Resp 16 Wt 275 lb (124.7kg) SpO2 98% LMP 08/30/2021 General appearance: well appearing, alert, and in no acute distress Nose/Sinuses: Nares normal, septum midline, mucosa normal, no drainage or sinus tenderness Oropharynx: Lips, mucosa and tongue normal, teeth and gums normal, oropharynx normal. Respiratory: lungs clear to auscultation no wheezing or rhonchi Cardiovascular: Negative. RRR without murmur, gallop, or rubs. No ectopy DATA: Diagnostic tests reviewed for today's visit, films/specimens were personally reviewed by me: Most recent labs SIGNATURE: Radha Vang MD PATIENT NAME: Sandee Null DATE: March 18, 2023 TIME: 11:33 AM PAGER/CONTACT #: [phone] [facility] Discharge summary Author Hardy iglesias [facility] March 12, 2023 7:44am Note Date/Time March 12, 2023 7 :41am [facility] [address] [place] [address] Discharge Summary Signed Patient: Sandee Null MR#: [id number] : 1990 Acct:[id number] Age/Sex: 33 / F Adm Date: 3 Loc: 1S Room: [address] [place] [address]: Jus Santos MD Copies to: MD Jus Jimenez MD NO FAMILY PHYSICIAN~ Providers Date of Discharge: 03/12/23 Discharging Provider: Hardy Jones Primary Care Provider: PHYSICIAN NO FAMILY Discharge Diagnosis (1) Major depressive disorder: (2) Suicidal ideations: (3) Bipolar disorder: Final Diagnosis Final Discharge Diagnosis: Bipolar disorder Summary Hospital Course Hospital course: Ms. Null is a 33 year old female with reported history of bipolar disorder and depression who presented due to depression and suicidal ideation. Patient was personally seen by me on the day of the encounter. I reviewed the history and performed the jones elements of the assessment. I formulated the planof care and confirmed this with the resident as noted below At the time of the interview, she presented as depressed and denies improvement in her mood. She stated before admission she was experiencing severe depression due to her leaving her and was going to attempt suicide which is why shedecided to come to the hospital. She states she has been seeing a psychiatrist for over a year now who helps to manage her medications but has not been on medications for months now due to inconsistencies taking them. Previous medications included Abilify shot, Lamictal, Lexapro, and others she cannot remember. She also states she stopped seeing her therapist months ago. She denies previous psychiatric hospitalizations but admits to hospitalization a fewmonths ago due to an asthma exacerbation. She admits to a suicide attempt at 17 years old as well as self harm as a teenager but denies self harm recently. She states her last manic episode was years ago. She denies the use of drugs and alcohol. She denies visual and auditory hallucinations. She states she lives with her children but they are not aware she is in the hospital as of now. She also complains of difficulty sleeping. Past psych history: History of depression and bipolar disorder Past hospitalizations: Denies prior psychiatric hospitalizations Past suicide attempts: Admits to suicide attempt at 17 years old. Previous medications: Abilify, Lamictal, Lexapro, others she does not remember. Alcohol and drug use: Denies use of alcohol or drugs. The course of treatment: The patient was familiar with the mental health therapy services available whileon the unit and was encouraged to participate.She has not been compliant with her medications and wanted to get back on them. Psychotropic medications targeting mood and anxiety were started and she was provided supportive and reality oriented therapy. Abilify was continued and her next injection is due on Mar 17 2023. Lamictal was added for mood stabilization and low dose Celexa to help with anxiety. She felt that her symptoms have improved on the current medication regimen, and has been compliant with treatment, and reported no side effects. Her sleep and appetite were okay. She has been attending groups and described them as useful building coping skills. The patient has denied any access to firearms or lethal weapons. She felt better than before coming to the hospital and feels hopeful regarding her future. She understands the importance of outpatient follow-up to ensure the stability of her symptoms. She denied suicidal or homicidal ideation and verbalized the intent to notify the staff if she has such thoughts. No suicidal or self-injurious behaviors occurred during inpatient treatment. The patient said she learned that she is not the only one who is going through depression. She said the unit is a good place to recover as she did not feel stigmatized. She expresses understanding and says she is better after learningcoping skills and the medications prescribed in the inpatient unit. She described this hospitalization as a wake up call and was in a good place to return home and engage fully in her life. Her visited while she was hospitalized and she said they are working onimproving their communication. Patient stated that she is able to keep her positive thoughts and denied any hopelessness. The patient stated that she was ready to go. She did not meet criteria for involuntary psychiatric hospitalization. Patient achieved maximum benefit from attending inpatient treatment and was suitable for outpatient follow up. I explained to the patientthat her discharge from the hospital does not mean that her medical care ends here. She needs consistent outpatient follow-up, cognitive behavioral therapy, and should communicate from this point on with her outpatient team. Patient's illness, medication side effects, benefits and risks were reviewed with her prior to discharge. The patient voiced understanding of their diagnosis, the medications recommended along with the importance of medication compliance. The patient was counseled not to stop medications without the supervision of a psychiatrist. The patient was counseled that if there was an increase in mental health issues, depression, anxiety, medication side effects, self harm or thoughts of harm to others, the patient was not to harm them self or stop treatment, but to call [email or web address], 911 or come to the nearest emergency room. The patient also received information regarding advanced mental and medical health directives during this hospitalization to discuss with their outpatient provider. The plan was discussed with the patient, the nurses and thecase management department. The patient voiced agreement with the plan. Discharge disposition: Home with her . Coordinated via case management. Safe discharge Planning: With the cessation of all suicidal ideation, improvements in mood, and absence of any psychotic symptoms at the time of discharge, aftercare plans were solidified. She was able to formulate a believable Safety Plan. Discharge plans were discussed with the patient, her family, and the treatment team. All agreed with the discharge plan. On the day of discharge, she was evaluated and had no complaints. She denied any SI/HI. She agreed to follow up with outpatient treatment as arranged by case management. She had no complications during her stay. Suicide risk assessment: A thorough review of risk and protective factors was conducted. Discussed with the patient the following recommendations that would help reduce suicide which includes limiting the number of medications to a 15-day supply with one refill at the time of discharge to avoid potential overdose,consistent outpatient follow up preferably within seven days of release, involving family members in her care, and her desire to live. We also discussed availability of outpatient DBT groups which can be lifesaving. She reports good therapeutic alliance, good response to medication management and therapy, availability of local mental health services and willingness to follow up, lack of suicidal ideation, intent or plan, lack of impulsivity, agitation, or psychotic behavior. Pt is future- oriented and understands the importance of outpatient follow-up. Psychiatric experts agree that predicting suicide is impossible but considering positive factors like family and venu, lack of access to firearms, and desire to continue treatment makes her current suicide risk minimal. Given the chronicity of suicidality, we discussed measures to help her with long-term safety. The patient is not suicidal or psychotic now. To help decreaseher suicide risk, as best I can, I am referring her for outpatient treatment andCBT for long-term follow-up to have somewhere to go and someone to manage her assymptoms and stressors develop. This is the best way to keep her alive. So, we discussed a crisis plan for future suicidality: at the first sign of distress, she will call the hotline; if this is not sufficient, she will 911, then call family members or friends; ultimately, she will come to the ER. Safety: The patient is not acutely psychotic and is safe to continue treatment on an outpatient basis. The patient was made aware of the 09/12 emergency services of the crisis center. She was advised to call 911 or go to the nearest ER in case of a crisis ( (including having thoughts of harming herself or others). Risks (metabolic, EPS, the effect on heart), benefits, and alternatives for medications were discussed. She verbalized understanding. Her consent was obtained. She was advised not to drink alcohol while taking medications. I advised patientthat using drugs can increase risk of impulsiveness and making poor decisions. Continue supportive therapy with some CBT techniques. Psycho-education and compliance counseling were provided. She denies current and is aware to notify her psychiatrist if she becomes due to the risk of harm to the fetus. Avoid taking psychiatric medications with driving. MSE: Orientation: Alert and oriented to person, place, and time. Appearance/Behavior: Fair grooming and hygiene, calm, cooperative, engaged in the interview. Good eye contact. Normal psychomotor activity. Speech: normal rate, rhythm, volume, and tone. Non pressured. Knowledge: Appropriate for age and level of education Mood: okay Affect: reactive, mood-congruent Thought process: linear, logical, and goal-oriented Thought content: No SI/HI. No AVH. No delusions. Does not appear to be responding to internal stimuli. Concentration: Grossly intact based on track during the interview Associations: No loosening of associations Memory: Able to recall recent and remote historical information Insight: Fair, able to appreciate current symptoms and need for outpatient treatment Judgment: fair, agreed to follow treatment recommendations, socially appropriate with interviewer and staff. Time spent discussing smoking cessation with patient: more than 10 minutes Condition Condition at Discharge: Stable Status at Discharge Functional status at discharge: independent ambulation Time Spent with Patient Time spent providing/coordinating discharge services (# min): 99 Exam Physical Exam Vital Signs: Temp Pulse Resp BP Pulse Ox O2 Del Method 98.1 F 95 H 16 100/58 L 99 Room Air 03/11/23 18:56 03/11/23 18:56 03/11/23 18:56 03/11/23 18:56 03/11/23 18:56 03/11/23 18:56 Discharge Plan Discharge Plan Additional Instructions: Important Contact Information You can call [facility] at [phone] any time day or night if you have emergent questions or question regarding discharge instructions. If at any time you are feeling an increase inyour psychiatric symptoms, call your physician or behavioral healthcare provider. If any time you have thoughts of harming yourself or others contact one of the following: Call 8 (available 09/12) Crisis Text Line (available 09/12) text 4HOPE to [phone] [facility] Hope Line (available 8 a.m. Midnight) call [phone] ([phone]) Prescriptions: New trazodone 50 mg Tablet 50 mg PO QHS PRN (Reason: Insomnia) 15 Days Qty: 15 1RF citalopram 10 mg Tablet 10 mg PO QAM 15 Days Qty: 15 1RF hydroxyzine pamoate 50 mg Capsule 50 mg PO Q6H PRN (Reason: Anxiety) 15 Days Qty: 30 0RF lamotrigine 25 mg Tablet 25 mg PO DAILY 15 Days Qty: 15 1RF cholecalciferol (vitamin D3) 25 mcg (1,000 unit) Tablet 50 mcg PO DAILY 30 Days Qty: 60 0RF Continued albuterol sulfate 90 mcg/actuation HFA aerosol inhaler 2 puff INHALATION Q6HR PRN (Reason: Wheezing) Patient Comments: INHALE 2 PUFFS EVERY 6 HOURS NEEDED FOR WHEEZING budesonide-formoterol [Symbicort] 160-4.5 mcg/actuation HFA aerosol inhaler 2 puff INHALATION BID Patient Comments: INHALE 2 PUFFS IN THE MORNING AND 2 PUFFS BEFORE BEDTIME. DO ALL THIS FOR 30 DAYS. Abilify Maintena 400 mg suspension,extended rel syring 400 mg IM QMONTH Patient Comments: INJECT 400MG INTRAMUSCULARLY ONCE A MONTH DIRECTED Pt. states next dose due 03/17. Follow Up: [facility] [Other] (Sees Dr. Doris Edmondson.) [facility] [Outside] (Wants counseling at [facility].) Wiliam Olivares, AIRPORT MANAGER- [Referring] - (Call your primary provider with any medical needs. ) Documented By: Hardy Jones MD [id number] Signed By: <Electronically signed by Hardy Jones MD> 03/12/23 7144 [facility] Work Phone: 1(600) 355-783510-25-2023 Hospital Discharge instructions Additional Instructions Important Contact Information You can call [facility] at [phone] any time day or night if you have emergent questions or question regarding discharge instructions. If at any time you are feeling an increase in your psychiatric symptoms, call your physician or behavioral healthcare provider. If any time you have thoughts of harming yourself or others contact one of the following: Call 98-8 (available 09/12) Crisis Text Line (available 09/12) text 4HOPE to [phone] [facility] Hope Line (available 8 a.m. Midnight) call [phone] ([phone]) Regular Diet No Activity [facility] Work Phone: [phone]) 143-892710-24-2023 Progress note Author Hardy iglesias [facility] March 11, 2023 10:45am Note Date/Time March 11, 2023 8 :58am [facility] [address] [place] [address] Psychiatry Progress Note Signed Patient: Sandee Null MR#: [id number] : 1990 Acct:[id number] Age/Sex: 33 / F Adm Date: 3 Loc: Room: [address] [place] [address] Type : ADM IN Attending Dr: Jus Santos MD Copies to: ~ Date of Service: 03/11/2023 Subjective Subjective Narrative: Ms. Null states her mood has improved and she is no longer having suicidal ideations. She states she has been able to tolerate the medications and denies any adverse reactions. States she has been able to eat and drink adequately and was on her way to eat breakfast after we finished talking. Patient was personally seen by me on the day of the encounter. I reviewed the history and performed the jones elements of the assessment. I formulated the planof care and confirmed this with the medical student as noted below Patient said mood is improving. She states she was able to sleep well last night. She does complain of abdominal pain for which she was given medication which seemed to help. She also complains of diarrhea but would not like anythingto help bulk up her stool. No SI/HI. Mental Status: mental status grossly normal Mood: depressed mood Affect: euthymic affect Speech and Movement: speech and movement normal and speech clear Attitude: cooperative Thought Process: normal Thought Content: Denies hallucinations and suicidal ideations Insight: fair Judgment: fair Exam Physical Exam Vital Signs: Temp Pulse Resp BP Pulse Ox O2 Del Method 98.1 F 95 H 16 123/84 100 Room Air 03/10/23 21:53 03/10/23 21:53 03/10/23 21:53 03/10/23 21:53 03/10/23 21:53 03/10/23 21:53 Objective Labs Labs: Abnormal Labs 03/10/23 05:36 25-OH Vitamin D Total 27.0 L Assessment/Plan Assessment/Plan (1) Major depressive disorder: Code(s): F32.9 - Major depressive disorder, single episode, unspecified Status: Acute (2) Suicidal ideations: Plan: Admit to for management of depression and to ensure safety of self due to suicidal ideations. Continue to monitor suicidal behaviors. Continue Abilify 400 mg IM. Next dose 03/17/23. Continue Lamictal 25 mg p.o. daily and Celexa 10 mg p.o. Patient reported a prior positive response to Lamictal. Recommend attending groups and psychoeducation for building coping skills. Risks, benefits and indications of medications were discussed with the patient. Risks include but not limited to SJS rash with Lamictal, metabolic side effects, sedation and movement disorders. The patient verbalized understanding. No abnormal movements noted on exam. AIMS is Zero. Involve friends/family members to coordinate care and ensure appropriate outpatient appointments are scheduled prior to discharge. Code(s): R45.851 - Suicidal ideations Status: Acute (3) Bipolar disorder: Code(s): F31.9 - Bipolar disorder, unspecified Status: Acute Documented By: Hardy Jones MD [id number] Signed By: <Electronically signed by Hardy Jones MD> 03/11/23 8587 [facility] Work Phone: [phone]) 643-983710-23-2023 History and physical note Author Hardy iglesias [facility] March 10, 2023 1:17pm Note Date/Time March 10, 2023 8 :25am [facility] [address] [place] [address] Psychiatry H&P Signed Patient: Sandee Null MR#: [id number] : 1990 Acct:[id number] Age/Sex: 33 / F Adm Date: 3 Loc: Room: [address] [place] [address] Type: ADM IN Attending Dr: Jus Santos MD Copies to: MD Jus Jimenez MD NO FAMILY PHYSICIAN~ Date of Service: 03/10/2023 HPI History of Present Illness History of present illness: Ms. Null is a 33 year old female with reported history of bipolar disorder and depression who presented due to depression and suicidal ideation. Patient was personally seen by me on the day of the encounter. I reviewed the history and performed the jones elements of the assessment. I formulated the planof care and confirmed this with the resident as noted below At the time of the interview, she presented as depressed and denies improvement in her mood. She stated before admission she was experiencing severe depression due to her leaving her and was going to attempt suicide which is why shedecided to come to the hospital. She states she has been seeing a psychiatrist for over a year now who helps to manage her medications but has not been on medications for months now due to inconsistencies taking them. Previous medications included Abilify shot, Lamictal, Lexapro, and others she cannot remember. She also states she stopped seeing her therapist months ago. She denies previous psychiatric hospitalizations but admits to hospitalization a fewmonths ago due to an asthma exacerbation. She admits to a suicide attempt at 17 years old as well as self harm as a teenager but denies self harm recently. She states her last manic episode was years ago. She denies the use of drugs and alcohol. She denies visual and auditory hallucinations. She states she lives with her children but they are not aware she is in the hospital as of now. She also complains of difficulty sleeping. Past psych history: History of depression and bipolar disorder Past hospitalizations: Denies prior psychiatric hospitalizations Past suicide attempts: Admits to suicide attempt at 17 years old. Previous medications: Abilify, Lamictal, Lexapro, others she does not remember. Alcohol and drug use: Denies use of alcohol or drugs. Living: Lives with children. Review of symptoms: Constitutional: Admits to difficulty sleeping. Denies fever. Eyes: Denies change in vision ENT: Denies abnormal hearing Psychiatric: Admits to depression and suicidal ideation. Denies hallucinations. Neuro: Pt alert, oriented x3. Gait normal. CNI: normal olfaction, no concerns reported CNII: Visual roach intact CNIII,IV,: EOM intact, no nystagmus. CNV: Sensation intact to light touch. CNVII: Raises eyebrows, smile/frown, puff out cheeks symmetrically. CNVIII: Hearing intact bilaterally. CNIX,X: Voice normal, soft palate elevation normal, symmetrical. CNXI: Shoulder shrug strong, equal bilaterally. CNXII: Tongue protrusion midline Mental Status: mental status grossly normal Mood: depressed mood Affect: constricted affect Speech and Movement: speech and movement normal and speech clear Attitude: cooperative Thought Process: normal Thought Content: Admits to suicidal ideation. Denies hallucinations Insight: fair Judgment: fair [facility] Medical History (Updated 03/10/23 @ 08:28 by Annie Moreno) Asthma Bipolar disorder Major depressive disorder Suicidal ideations Suicide attempt Social History Smoking Status: Current every day smoker Tobacco Type: cigarettes Substance Use Type: None and Unknown Meds Medications and Allergies Allergies kiwi Allergy (Verified 03/10/23 04:17) Unknown Reaction latex Allergy (Verified 03/10/23 03:40) Unknown Reaction metronidazole Allergy (Verified 03/10/23 03:40) Unknown Reaction raspberry Allergy (Verified 03/10/23 04:17) Unknown Reaction vancomycin Allergy (Verified 03/10/23 03:40) Unknown Reaction Home Medications albuterol sulfate 90 mcg/actuation aerosol inhaler 2 puff inhalation Q6HR PRN Wheezing 03/10/23 [History Confirmed 03/10/23] aripiprazole 400 mg suspension, extended rel.intramuscular syringe (Abilify Maintena) 400 mg IM QMONTH 03/10/23 [History Confirmed 03/10/23] budesonide-formoterol HFA 160 mcg-4.5 mcg/actuation aerosol inhaler (Symbicort) 2 puff inhalation BID 03/10/23 [History Confirmed 03/10/23] Exam Physical Exam Vital Signs: Temp Pulse Resp BP Pulse Ox O2 Del Method 98.8 F 101 H 20 142/89 H 96 Room Air 03/10/23 05:02 03/10/23 05:02 03/10/23 05:02 03/10/23 05:02 03/10/23 05:02 03/10/23 05:02 Assessment/Plan (1) Major depressive disorder: Code(s): F32.9 - Major depressive disorder, single episode, unspecified Status: Acute (2) Suicidal ideations: Plan: Admit to 1S for management of depression and to ensure safety of self due to suicidal ideations. Continue to monitor suicidal behaviors. Continue Abilify 400 mg IM. Next dose 03/17/23. Begin Lamictal 25 mg p.o. daily and Celexa 10 mg p.o. Patient reported a prior positive response to Lamictal. Recommend attending groups and psychoeducation for building coping skills. Risks, benefits and indications of medications were discussed with the patient. Risks include but not limited to SJS rash with Lamictal, metabolic side effects, sedation and movement disorders. The patient verbalized understanding. No abnormal movements noted on exam. AIMS is Zero. Involve friends/family members to coordinate care and ensure appropriate outpatient appointments are scheduled prior to discharge. I have reviewed evaluations by other providers (ER notes, nurses and staff) Code(s): R45.851 - Suicidal ideations Status: Acute (3) Bipolar disorder: Code(s): F31.9 - Bipolar disorder, unspecified Status: Acute Documented By: Hardy Jones MD 3 [id number] Signed By: <Electronically signed by Hardy Jones MD> 03/10/23 1319 [facility] Work Phone: 1(947) 171-365606-03-2022 History of Present illness Narrative* Erick Trujillo PA-C - 10/19/2021 9:00 AM EDT Images from the original note were not included. OUTPATIENT FOLLOW UP CARDIOTHORACIC SURGERY NAME: Sandee Null DATE OF VISIT: 10/19/21 HISTORY OF PRESENT ILLNESS: This is a 31 year old female who returns for routine follow up today. Please see previous notes for details. Briefly, she is status post left robotic assisted lower lobe wedge resection and cryo-analgesia procedure, interspaces 6-9 on 09/18/21 for Left lower lobe lung nodule. Final pathology demonstrated necrotizing granuloma. Today she states she is doing well. She denies any issues or problems since hospital discharge. Specifically, She denies any shortness of breath, dyspnea, productive cough, chest pain, fevers, nausea, vomiting, wound erythema or wound drainage. She has very minimal pain at this point. Pain is controlled with the use of tylenol/motrin. She is moving her bowels regularly. Denies numbness on L flank. Of note, pt had cellulitis on L flank for which she sought care and took a course of abx. This is has since resolved. MEDICATIONS: As noted in electronic medical record. Current Outpatient Medications Medication Instructions acetaminophen (TYLENOL) 1,000 mg, ORAL, EVERY 6 HOURS albuterol HFA (PROVENTIL HFA, VENTOLIN HFA) 90 mcg/actuation inhaler 2 Puffs, INHALATION, EVERY 6 HOURS NEEDED aspirin/acetaminophen/caffeine (EXCEDRIN MIGRAINE ORAL) 1 tablet, ORAL, NEEDED budesonide-formoterol (SYMBICORT) 160-4.5 mcg/actuation inhaler 2 Puffs, INHALATION, 2 TIMES DAILY EPINEPHrine (EPIPEN) 0.3 mg, INTRAMUSCULAR, NEEDED ibuprofen (ADVIL) 200 mg, ORAL, EVERY 6 HOURS NEEDED ipratropium-albuterol (DUONEB) 0.5 mg-3 mg(2.5 mg base)/3 mL nebu 3 mL, INHALATION, EVERY 6 HOURS NEEDED metoprolol tartrate, short acting, (LOPRESSOR) 25 mg tablet Take 1/2 tablet by mouth every 12 hours. tiotropium (SPIRIVA WITH HANDIHALER) 18 mcg, INHALATION, DAILY, Use with HandiHaler. ALLERGIES: As noted in electronic medical record. PHYSICAL EXAMINATION: On exam, she is a well developed, well nourished, ambulatory female in no apparent distress. Vital signs are stable. She is breathing comfortably on room air with a saturation of 96%. Lung sounds are CTAB. Heart rate regular without appreciable murmur, rub or gallop. Her left s ided surgical incisions are healing well. Extremities are warm without peripheral edema. 10/19/21 0915 BP: 141/91 Pulse: 100 SpO2: 96% Weight: 129.7 kg (286 lb) Height: 157.5 cm (5' 2 ) IMAGING: A CXR was performed 10/18/21 at an outside hospital. The report was reviewed today. No ptx or effusion. Unremarkable post operative CXR. SOCIAL HISTORY OF SMOKING: former 10+ pack year smoker. Brief relapse one night since leaving the hospital but has generally not been smoking. IMPRESSION & PLAN: Ms Sandee Null is a 31 year old female status post left robotic assisted lower lobe wedge resection and cryo-analgesia procedure, interspaces 6-9 on 09/18/21 for Left lower lobe lung nodule. Final pathology demonstrated necrotizing granuloma. She is doing well at today's visit. Continue follow up with Pulmonology Radha Vang MD Follow up with Thoracic Surgery PRN Erick Trujillo PA-C Thoracic Surgery [id number] DATE: October 19, 2021 TIME: 9:34 AM [facility] Miscellaneous Notes* Telephone Encounter - Donald Huang MD - 09/22/2021 4:48 PM EDT Patient called asking for narcotic pain medication. She did not take any home with her at discharge. Pain has increased today. I sent in a prescription for oxycodone 5 mg q 6 hrs prn (#28). documented in this [facility]22 NoteHNO ID: [id number] Author: Misa Carrasco (Furniture Arranger) Service: Pharmacy Author Type: ? Type: Plan of Care Filed: 09/19/2021 5:07 PM Note Text: PHARMACY BEDSIDE DELIVERY SERVICE Patient Name: Sandee Null The marked outpatient medications were filled and delivered bedside. Medication List START taking these medications metoprolol tartrate (short acting) 25 mg tabletX Commonly known as: LOPRESSOR Take 1/2 tablet by mouth every 12 hours. traMADol 50 mg tabletX Commonly known as: ULTRAM Take 1 tablet by mouth every 6 hours as needed for pain for up to 7 days. CHANGE how you take these medications acetaminophen 500 mg tablet Commonly known as: TYLENOL Take 2 tablets by mouth every 6 hours. What changed: ? medication strength ? how much to take ? when to take this ? reasons to take this CONTINUE taking these medications AdviL 200 mg tablet Generic drug: ibuprofen albuterol HFA 90 mcg/actuation inhaler Commonly known as: PROVENTIL HFA, VENTOLIN HFA budesonide-formoterol 160-4.5 mcg/actuation inhaler Commonly known as: SYMBICORT EPINEPHrine 0.3 mg/0.3 mL auto-injector Commonly known as: EPIPEN EXCEDRIN MIGRAINE ORAL ipratropium-albuterol 0.5 mg-3 mg(2.5 mg base)/3 mL Nebu Commonly known as: DUONEB tiotropium 18 mcg inhalation capsule Commonly known as: SPIRIVA WITH HANDIHALER Inhale 1 capsule as instructed once daily. Use with HandiHaler. You might also be taking other medications not listed above. If you have questions about any of your other medications, talk to the person who prescribed them or your Primary Care Provider. Misa Carrasco (Furniture Arranger) PAGER: [id number] September 19, 2021 5:07 [facility]05-04-2022 NoteHNO ID: [id number] Author: Beena Brumfield nevin Service: Pharmacy Author Type: Pharmacist Type: Plan of Care Filed: 09/19/2021 4:59 PM Note Text: PHARMACY MEDICATION REVIEW Patient Name: Sandee Null : 1990 The following medications were updated within the [employer] medication list: Medications ADDED to [employer] medication list ? none Medications CHANGED on [employer] medication list ? Symbicort - Pt reports using BID. Medications REMOVED from [employer] medication list ? Spiriva - Pt reports not taking Additional comments: See below. Pt reports adherence to all medications except Spiriva. Pt states that the powder in the inhaler makes her gag, so decided to discontinue. MD not aware. Pt also reports needing a refill on Symbicort. The below information represents the best possible medication history: Yes Medication history completed by: brick tester: Fariba Benoit Source of history: Patient: Reliability of source: Appears reliable, clearly identified: Medication name, Medication dose, Medication route and Medication frequency and Pharmacy records: Surescripts. Medication nonadherence identified: No barriers noted Reconciliation completed: Yes All [employer] medications addressed by LIP Patient interested in Bedside Delivery Services or using OP Pharmacy at discharge? Yes. Discharge Pharmacy Updated Preferred outpatient pharmacy: [facility] Allergies: Latex Rash Levofloxacin Other: See Comments Comment:tendenitis Metronidazole Vomiting Prior to Admission Medications Prescriptions Last Dose Informant Patient Reported? Taking? EPINEPHrine (EPIPEN) 0.3 mg/0.3 mL auto-injector Yes Yes Sig: Inject 0.3 mg intramuscularly as needed (allergic reaction). acetaminophen (TYLENOL) 325 mg tablet Patient Yes No Sig: Take 650 mg by mouth every 6 hours as needed. albuterol HFA (PROVENTIL HFA, VENTOLIN HFA) 90 mcg/actuation inhaler 09/18/2021 at Unknown time Yes Yes Sig: Inhale 2 Puffs as instructed every 6 hours as needed for wheezing/shortness of breath. aspirin/acetaminophen/caffeine (EXCEDRIN MIGRAINE ORAL) Patient Yes Yes Sig: Take 1 tablet by mouth as needed (for migraine). budesonide-formoterol (SYMBICORT) 160-4.5 mcg/actuation inhaler 09/18/2021 at Unknown time Yes Yes Sig: Inhale 2 Puffs as instructed twice daily. ibuprofen (ADVIL) 200 mg tablet Patient Yes Yes Sig: Take 200 mg by mouth every 6 hours as needed for pain. ipratropium-albuterol (DUONEB) 0.5 mg-3 mg(2.5 mg base)/3 mL nebu Yes Yes Sig: Inhale 3 mL as instructed every 6 hours as needed for wheezing/shortness of breath. tiotropium (SPIRIVA WITH HANDIHALER) 18 mcg inhalation capsule No No Sig: Inhale 1 capsule as instructed once daily. Use with HandiHaler. Patient not taking: Reported on 09/14/2021 Facility-Administered Medications: None Fariba Benoit, Dietary Server September 19, 2021 10:48 AM Addendum The medication history completed by the caption writer has been reviewed; patient's prior to admission medication list has been updated. Changes and additions to the details in the above note are indicated by and italics. Beena Brumfield, [place], [facility] September 19, 2021 4:59 [facility]05-04-2022 NoteHNO ID: [id number] Author: Rob Scott PA-C Service: Cardiac Surgery Author Type: Physician Top Lift Trimmer Type: Procedures Filed: 09/19/2021 9:12 AM Note Text: Summary: CT removal CT Removal x 1 - Chest tube atriumremoved from suction - Air leak check via patient valsalva - Area surrounding chest tube sutures swabbed with betadine solution - Sutures affixing chest tubes cut at level of the skin and freed from attachment to skin - Xeroform dressing placed over top of chest tubes in configuration to create seal - Xeroform covered in gauze pads and taped over at cephalic and lateral sides - Chest tubes removed under forced valsalva - Pressure placed on dressing during and immediately after pull to ensure air seal - Remaining side taped while holding pressure on dressing - Well-tolerated, no complications ALEXIA [facility]05-03-2022 NoteHNO ID: [id number] Author: Pj Rendon DO Service: Anesthesiology Author Type: Resident Type: Anesthesia Procedure Notes Filed: 09/18/2021 9:01 AM Note Text: ANESTHESIOLOGY PROCEDURE NOTE PIV General Information Procedure Start Time/Medication Administration: 09/18/2021 8:20 AM Patient Location: OR Staffing Anesthesiologist: Eliezer Lr MD Resident: Pj Rendon DO Performed by: resident Preparation Sterility Preparation: hand hygiene performed prior to procedure, surgical cap used, mask used, skin prep agent completely dried prior to procedure Site Prep: Chloraprep Procedure Details Indication: need for IV access Needle Size/Type: 18 gauge angiocath Orientation: Left Location: Hand Imaging Guidance Used: No SIGNATURE: Pj Rendon DO PATIENT NAME: Sandee Null DATE: September 18, 2021 TIME: 8:59 AM CSN: [id number] NoteHNO ID: [id number] Author: Pj Rendon DO Service: Anesthesiology Author Type: Resident Type: Anesthesia Procedure Notes Filed: 09/18/2021 9:01 AM Note Text: ANESTHESIOLOGY PROCEDURE NOTE A-Line General Information Procedure Start Time/Medication Administration: 09/18/2021 8:15 AM Patient location during procedure: OR Timeout Performed Pre-procedure: timeout performed Indication: continuous blood pressure monitoring and blood sampling needed Staffing Anesthesiologist: Eliezer Lr MD Resident: Pj Rendon DO Performed by: resident Preparation Sterility Preparation: hand hygiene performed prior to procedure, sterile gloves, drapes, and procedure tray, surgical cap used, mask used, sterile drape used during line insertion, skin prep agent completely dried prior to procedure Site Prep: Chloraprep Procedure Details Catheter Size: 20 G Catheter Length: 5.25 in Micropuncture Kit Used: No Guidewire Used: Yes Guidewire Removed Intact: YesLaterality: right Site: radial artery Ultrasound Guided: NoLine Secured: Tegaderm and tape Events Events: patient tolerated procedure well with no complications Comments Postinduction a-line, no complications SIGNATURE: Pj Rendon DO PATIENT NAME: Sandee Null DATE: September 18, 2021 TIME: 8:58 AM CSN: [id number] NoteHNO ID: [id number] Author: Pj Rendon DO Service: Anesthesiology Author Type: Resident Type: Anesthesia Procedure Notes Filed: 09/18/2021 8:55 AM Note Text: ANESTHESIOLOGY PROCEDURE NOTE Airway General Information Procedure Start Time/Medication Administration: 09/18/2021 8:01 AM Patient location during procedure: OR Timeout Performed Pre-procedure: timeout performed Consent Obtained: Yes 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, 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 Staffing Anesthesiologist: Eliezer Lr MD Resident: Pj Rendon DO Performed by: resident Indications and Patient Condition Preoxygenated: yes Patient position: sniffing Difficult Mask: Yes Indications for airway management: anesthesia anesthesia circuit Method: asleep Airway Accessory: oral airway Final Airway Details Final airway type: endotracheal airway Final Endotracheal Airway: ETT - double lumen left Cuffed: yes Successful intubation technique: direct laryngoscopy Devices used: intubating stylet Endotracheal tube insertion site: oral Blade: Ganesh Blade size: #4 ETT DL size (fr): 35 Bronchial cuff volume: 3 Measured from: lips Measurement (cm): 26 Placement verified by: bronchoscopy and capnometry Cormack-Lehane Classification: grade IIa - partial view of glottis Number of attempts at approach: 1 Failed airway: no Unrecognized esophageal intubation: no Airway not difficult SIGNATURE: Pj Rendon DO PATIENT NAME: Sandee Null DATE: September 18, 2021 TIME: 8:54 AM CSN: [id number] NoteHNO ID: [id number] Author: Noel Grover DO Service: Anesthesiology Author Type: Anesthesiologist Type: Anesthesia Procedure Notes Filed: 09/18/2021 7:24 AM Note Text: ANESTHESIOLOGY PROCEDURE NOTE Peripheral Nerve Block General Information Procedure Start Time/Medication Administration: 09/18/2021 7:09 AM Procedure End time: 09/18/2021 7:14 AM Patient location during procedure: pre-op Timeout Performed Pre-procedure: timeout performed Consent Obtained: Yes 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, 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 Reason for block: post-op pain management/at surgeon's request Staffing Anesthesiologist: Noel Grover DO Preparation Sterility Preparation: hand hygiene performed prior to procedure, sterile gloves, drapes, and procedure tray, surgical cap used, mask used, sterile drape used during line insertion, skin prep agent completely dried prior to procedure Sterility Technique Not Completely Performed Due to Extreme Emergency: No Site Prep: Chloraprep Pre-Procedure Neuro Exam Location: TRUNK Sensory: intact Motor: intact Procedure Details Patient Position: sitting Monitoring: Pulse OX, EKG and NIBP Block Type Trunk: paravertebral block Left Sensory Level: T6 and T8 Laterality: left Injection Technique: single-shot Ultrasound Guided: Yes Image in Chart: yes Needle Needle Type: stimulating Needle Gauge: 21 G Needle Localization: anatomical landmarks and ultrasoundNo Assessment Injection assessment: negative aspiration, no paresthesia on injection, incremental injection and local visualized surrounding nerve on ultrasound Paresthesia: none Post-Procedure Neuro Exam Expected Regional Anesthesia: Yes Medications Administered Bupivacaine liposome (PF) 1.3 % (13.3 mg/mL) injection (EXPAREL), 266 mg bupivacaine (PF) 0.5 % (5 mg/mL) injection, 20 mL Comments Pleural sliding present pre and post procedure unchanged, negative aspirate, one attempt. See nursing for vitals. SIGNATURE: Noel Grover DO PATIENT NAME: Sandee Null DATE: September 18, 2021 TIME: 7:23 AM CSN: [id number] Instructions* Patient Instructions* Donald Huang MD - 09/14/2021 9:41 AM EDT OR scheduled Saturday, September 18, 2021. [facility] History of Present illness Narrative* Donald Huang MD - 09/14/2021 8:30 AM EDT REASON FOR EVALUATION: Follow up. Sign Consents for surgery. HPI: Sandee Null is a very pleasant 31-year old female who is a former 10+ pack year smoker andwho has severe asthma. She was found to have a 4 mm left lower lobe lung nodule near the left majorfissure on a chest CT in [facility] in 09/2015. She was unaware that she had the nodule at that time and there was no follow up. The patient was hospitaized on 03/10/20 for possible panic attack. She was at that time. She was having chest pain and difficulty breathing. She had chest pain and arm pain on the left side. She was told she had a lung nodule at that time. She knew about the lung nodule but was told that it was larger, now measuring 9.[address] chest on 04/05/21 s howed: 9 mm irregularly marginated left lower lobe nodule. Additional 7-8 mm left lower lobe perihilar nodules are identified. The patient underwent a PET scan on 08/13/21 that showed: Few FDG avid left upper cervical lymph nodes are probably reactive. CHEST: Stable non-FDG avid 0.9 cm left lower lobe and mildly FDG avid 0.6 cm left lower lobe perihilar pulmonary nodules. New non-FDG avid right upper lobe nodular opacity may reflect an infectious/inflammatory process. Mildly FDG avid left infrahilar lymph node may be reactive. ABDOMEN/PELVIS: No FDG avid neoplastic process. EXTREMITIES/SKELETON: No suspicious FDG avid osseous lesion. I evaluated the patient on 08/22/21. She returns today to discuss surgical resection and sign consents for operation. Clinically, the patient reports doing well. No new complaints. ALLERGIES, MEDICATIONS, PAST MEDICAL HISTORY, PAST SURGICAL HISTORY, SOCIAL HISTORY, FAMILY HISTORYAND REVIEW OF SYSTEMS REVIEWED. THERE ARE NO CHANGES. REVIEW OF SYSTEMS: A 14-point review of systems was performed. All pertinent positives are listed in the HPI. All other systems reviewed are negative. PHYSICAL EXAM: Vitals reviewed. General: alert, oriented, no distress HEENT: PERRLA, EOMI, anicteric, oropharynx unremarkable. Neck: no adenopathy. Resp: clear to ausculation bilaterally. Chest: no deformity. Cardiac: regular rate and rhythm, no murmurs, gallops or rubs. Abdomen: soft, non-tender, non-distended, no mass, no organomegaly. Extremities: no edema, cyanosis Neurologic: grossly intact Skin: warm, dry, intact, no lesions DIAGNOSTICS: I have personally reviewed the patient's available diagnotic studies, including: PFT 09/11/21: [facility] [id number] [facility] [place] [address] Test Date: 2021-09-11 Pat Name: SANDEE NULL Department: Room: Gender: Female Classifier Tender: : 1990 Requested By: Order Number: [id number] Reading MD: Interpretive Statements ATS/ERS acceptability and repeatability standards for spirometry met. ATS/ERS acceptability and repeatability standards for DLCO met. DLCO is not hemoglobin corrected. //RK IMPRESSION: Site: AV ID: [id number] Name: SNADEE NULL Visit Date: 09/11/2021 Doctor: Classifier Tender: Milvia Holliday Age: 31 Date of : 1990 Gender: Female Race: White Height: 62.70 in Weight: 293.21 lbs BSA: 2.267 Diagnosis: Pre-operative Evaluation for Respiratory Dyspnea: Cough: Wheeze: Tobacco Product: Cigarette Years Smoked: Packs/Day: Years Quit: Medications: Current Smoker Comments: ATS/ERS acceptability and repeatability standards for spirometry met. ATS/ERS acceptability and repeatability standards for DLCO met. DLCO is not hemoglobin corrected. //RK Review Status: Not Reviewed PRE-BRONCH POST-BRONCH Pred LLN ULN Actual %Pred Actual %Chng SPIROMETRY FVC (L) 3.63 2.90 4.38 4.10 113 FEV1 (L) 3.08 2.47 3.67 3.01 97 FEV1/FVC 0.85 0.74 0.94 0.73 86 FEF25 (L/sec) 5.17 FEF50 (L/sec) 3.96 2.36 5.57 2.78 70 FEF75 (L/sec) 1.51 0.79 2.63 0.95 63 [id number] (L/sec) 3.50 2.26 4.93 2.27 64 PEF L/s (L/sec) 6.80 5.16 8.44 7.16 105 FIVC (L) 4.05 FIF50 (L/sec) 4.10 PIF (L/sec) 4.28 Time (sec) 8.53 TARSHA (L) 0.12 FET PEF (sec) 0.08 DIFFUSION DLCOunc (ml/min/mmHg) 24.47 18.30 30.64 22.65 92 DLunc/VA (ml/min/mmHg 4.98 3.66 6.30 4.17 83 VA (L) 4.85 3.75 5.95 5.44 112 BHT (sec) 10.35 IVC (L) 3.91 IMPRESSIONS: Sandee Null is a very pleasant 31-year old female who is a former 10+ pack year smoker and who has severe asthma. She was found to have a 4 mm left lower lobe lung nodule near the left major fissure on a chest CT in [facility] in 09/2015. She was unaware that she had the nodule at that time and there was no follow up. The patient was hospitaized on 03/10/20 for possible panic attack. Shewas at that time. She was having chest pain and difficulty breathing. She had chest pain and arm pain on the left side. She was told she had a lung nodule at that time. She knew about the lung nodule but was told that it was larger, now measuring 9.[address] chest on 04/05/21 showed: 9 mm irregularly marginated left lower lobe nodule. Additional 7-8 mm left lower lobe perihilar nodules are identified. The patient underwent a PET scan on 08/13/21 that showed: Few FDG avid left upper cervical lymph nodes are probably reactive. CHEST: Stable non-FDG avid 0.9 cm left lower lobe and mildly FDG avid 0.6 cm left lower lobe perihilar pulmonary nodules. New non-FDG avid right upper lobe nodular opacity may reflect an infectious/inflammatory process. Mildly FDG avid left infrahilar lymph node may be reactive. ABDOMEN/PELVIS: No FDG avid neoplastic process. EXTREMITIES/SKELETON: No suspicious FDG avid osseous lesion. I evaluated the patient on 08/22/21. She returns today to discuss surgical resection and sign consents for operation. Clinically, the patient reports doing well. No new complaints. I personally reviewed all of the patient's diagnostic studies. I am recommending that the patient undergo a left robotic-assisted lower lobe wedge resection, possible left lower lobe anatomic segmentectomy, possible anatomic left lower lobectomy, mediastinal lymph node dissection, cryo-analgesia procedure, with possible blood transfusion and possilbe conversion to left thoracotomy. I did discuss the risks, options, benefits and alternatives in detail with the patient. She understands the risks and complications and woul like to proceed. All of her questions were answered today. All consent forms have been signed and are in the [facility] EMR. The patient's operation is scheduled on Saturday, September 18, 2021. I will contact you on the day of operation to report my intra-operative findings and to notify you of her admission to the hospital. Once again, thank you for your kind referral of Sandee Null to me. If you have any questions or if I can be of help to you with any of your other patients, please do not hesitate to contact me. documented in this [facility]04-27-[facility] History of Past illness Narrative* Problem Noted Date Resolved Date Former smoker 09/12/2021 09/12/2021 Bipolar 1 disorder 09/12/2021 09/12/2021 documented as of this encounter (statuses as of 09/12/2021) [address]27-[address]22 History of Past illness Narrative* Problem Noted Date Resolved Date Former smoker 09/12/2021 09/12/2021 Bipolar 1 disorder 09/12/2021 09/12/2021 documented as of this encounter (statuses as of 09/14/2021) [address]27-[address]22 History of Past illness Narrative* Problem Noted Date Resolved Date Former smoker 09/12/2021 09/12/2021 Bipolar 1 disorder 09/12/2021 09/12/2021 documented as of this encounter (statuses as of 09/19/2021) [place] [address]22 History of Past illness Narrative* Problem Noted Date Resolved Date Former smoker 09/12/2021 09/12/2021 Bipolar 1 disorder 09/12/2021 09/12/2021 documented as of this encounter (statuses as of 09/21/2021) [place] [address] History of Past illness Narrative* Problem Noted Date Resolved Date Former smoker 09/12/2021 09/12/2021 Bipolar 1 disorder 09/12/2021 09/12/2021 documented as of this encounter (statuses as of 09/22/2021) [address]27-[address]22 History of Past illness Narrative* Problem Noted Date Resolved Date Former smoker 09/12/2021 09/12/2021 Bipolar 1 disorder 09/12/2021 09/12/2021 documented as of this encounter (statuses as of 10/19/2021) [address]27-[address]22 History of Past illness Narrative* Problem Noted Date Diagnosed Date Resolved Date Former smoker 09/12/2021 09/12/2021 Bipolar 1 disorder 09/12/2021 documented as of this encounter (statuses as of 03/18/2023) [address]27-[address]22 Instructions* Patient Instructions* Geovanna Dickinson APRN.FOOD SAFETY TECHNICIAN - 09/12/2021 12:36 PM EDT PATIENT PREOPERATIVE INSTRUCTIONS Dr Donald Huang has scheduled you for your procedure at this surgery center: [facility]: [phone] --[id number] [place] [address]. Please check in on the1st floor at registration desk 6. Please read below carefully for your personalized instructions. Dietary Restrictions: - No solid food after midnight. - You may have 12 ounces of clear liquids (water, clear juices such as apple juice or gatorade, carbonated beverages, clear tea, black coffee, jello) until 2 hours before scheduled arrival at facility. Medications: Unless instructed differently below, stay on all of your medications until your surgery. Approved medications to take the morning of surgery with a sip of water: Inhalers If you start any new medications after today's visit, please contact the surgeon's office. Blood Thinning Medications: - Stop NSAIDS (Ibuprofen, Advil, Aleve, Motrin, Celebrex, Mobic, etc.) 7 days before surgery, as directed by your surgeon. - Stop Vitamin E, ALL multi-vitamins, herbals and dietary supplements 7 days before surgery. - You may take Tylenol (Acetaminophen) or any of your pain medications that do not contain aspirin or NSAIDS as needed. Important Reminders: - If you are prescribed inhalers for breathing, continue using them. - Candy, mints, and tobacco products are NOT permitted the morning of surgery. - Hearing aids, dentures and glasses may be worn the morning of surgery. - NO jewelry, body piercings, makeup, hairpins or contacts are to be worn the day of surgery. If you develop symptoms such as a fever, cold, or flu, or have other changes to your health within TWO DAYS of scheduled surgery or the morning of surgery, please contact the surgery center above. Personal Belongings: -Please have photo ID and insurance cards. -If you do not have a copy of advance directives on file with us, please bring a copy with you on the day of surgery. - Leave ALL valuables and money at home or with family members. For Outpatient Procedures: - YOU MUST HAVE A RESPONSIBLE CLINICAL THERAPIST TAKE YOU HOME. A SENIOR VALIDATION ENGINEER OR CONSUMER INSIGHTS INTERN CANNOT BE MADE A RESPONSIBLE CLINICAL THERAPIST. - We recommend that a responsible person stays with you overnight to take care of you. - You cannot stay in a hotel alone after outpatient surgery. You will not be permitted to have yoursurgery, if you do not have someone to take care of you. Arrival Time for Surgery: - The Surgery Center or hospital where you are having surgery will call the afternoon before surgery (or Friday for Friday surgery) with a scheduled arrival time. - If you have not heard by 4 pm, please contact the surgery center above. Please be aware that emergency situations arise, which may delay or change your surgical time. If this happens, we will notify you as soon as possible and regret any inconvenience. If you already have an Advance Directive, please fax a copy to [phone] or email to for it to be added to your chart. If you do not have an Advance Directive, you can find the appropriate form and more information at [email or web address]. We recommend that youcomplete the Advance Directive form found on the website and bring it with you the day of your surgery. It can be witnessed and scanned into your chart that day. [facility] History and physical note * Geovanna Dickinson APRN.CNP - 09/12/2021 12:30 PM EDT HISTORY AND PHYSICAL EXAMINATION SERVICE DATE: 09/12/2021 SERVICE TIME: 12:28 PM PRIMARY CARE PHYSICIAN: Qasim Daley MD, MD REASON FOR VISIT: Sandee Null is a 31 year old female who is scheduled for ROBOTIC THORACOSCOPY; LOBECTOMY, TOTALOR SEGMENTAL at the request of Dr. Donald Huang for consultation. My final recommendation will be communicated back to the requesting physician by way of shared medical record or letter. The patient has the following: ACTIVE PROBLEM LIST Lung Nodule Migraines Asthma Obesity Ptsd (Post-Traumatic Stress Disorder) Smoker Subjective CHIEF COMPLAINT: Pre-op exam HPI: This is a 31 year scheduled for the above procedure. Patient is a former smoker. On CT scan patient was found to have a 4 mm lung nodule in 2015, on most recent CT scan March 2021, the nodulehas increased to 9 mm with additional nodules noted. Patient denies any CP or SOB at this time. PAST MEDICAL HISTORY Diagnosis Date Anxiety state Asthma Bipolar disorder (HCC) Cigarette nicotine dependence without complication Hypertrophic cardiomegaly Lung nodule OCD (obsessive compulsive disorder) PTSD (post-traumatic stress disorder) History reviewed. No pertinent surgical history. FAMILY HISTORY Adopted: Yes Problem Relation Age of Onset Alcohol/Drug Mother Bipolar disorder Mother Depression Mother Alcohol/Drug Father Depression Father SOCIAL HISTORY: Social History Tobacco Use Smoking status: Current Every Day Smoker Packs/day: 1.00 Years: 15.00 Pack years: 15.00 Types: Cigarettes Smokeless tobacco: Never Used Vaping Use Vaping Use: Never used Substance Use Topics Alcohol use: Not Currently Drug use: Never Prior to Admission medications as of 09/12/21 1247 Medication Sig Last Dose Taking aspirin/acetaminophen/caffeine (EXCEDRIN MIGRAINE ORAL) Take by mouth as needed. Yes ibuprofen (ADVIL) 200 mg tablet Take 200 mg by mouth every 6 hours as needed. Yes acetaminophen (TYLENOL) 325 mg tablet Take 650 mg by mouth every 6 hours as needed. Yes ipratropium-albuterol (DUONEB) 0.5 mg-3 mg(2.5 mg base)/3 mL nebu USE 1 AMPULE IN NEBULIZER 4 TIMESDAILY Yes albuterol HFA (PROVENTIL HFA, VENTOLIN HFA) 90 mcg/actuation inhaler Inhale 2 Puffs as instructed every 6 hours as needed. Yes budesonide-formoterol (SYMBICORT) 160-4.5 mcg/actuation inhaler Inhale 2 Puffs as instructed. Yes EPINEPHrine (EPIPEN) 0.3 mg/0.3 mL auto-injector Inject 0.3 mg intramuscularly at bedtime as needed. Yes loperamide (IMODIUM) 2 mg cap(s) TAKE 1 CAPSULE BY MOUTH 4 TIMES DAILY NEEDED ondansetron (ZOFRAN) 4 mg tablet Take 4 mg by mouth three times daily as needed. predniSONE (DELTASONE) 50 mg Take 50 mg by mouth. famotidine (PEPCID) 10 mg tablet 20 mg. Uqszawxl-Cm-Xfx-Fe-FA tab Take 1 tablet by mouth. promethazine (PHENERGAN) 12.5 mg tablet Take 12.5 mg by mouth three times daily as needed. tiotropium (SPIRIVA WITH HANDIHALER) 18 mcg inhalation capsule Inhale 1 capsule as instructed once daily. Use with HandiHaler. Medication Comments documented by Geovanna Dickinson APRN.FOOD SAFETY TECHNICIAN on 09/12/2021 at 0909. Pepcid if normally taken in the morning. Inhalers ALLERGIES Allergen Reactions Latex Rash Levofloxacin Other: See Comments tendenitis Metronidazole Vomiting COVID VACCINATION STATUS: Fully vaccinated REVIEW OF SYSTEMS: PAIN ASSESSMENT: General: No weight loss, malaise or fevers. Neuro: Postive for Headaches, Negative for TIA's Seizures Stroke-residual deficit Respiratory: Positive for Asthma, Tobacco Use 1 ppd, Negative for Current cough, Home O2 Cardiovascular: No history of HTN requiring medication, no history of angina, CHF, RI, cardiac surgery or stents. Denies rest pain, gangrene or revascularization/amputation for PVD. No history of cardiovascular symptoms or problems. GI: Positive for GERD, Negative for Abdominal pain, Difficulty swallowing, Liver disease : No history of dysuria, frequency or incontinence,, stones or chronic kidney disease ACCIDENT EXAMINER: Negative for abnormal vaginal bleeding, abnormal vaginal discharge. Endocrine: No history of diabetes. Has not taken steroids within the past 30 days. No history of endocrinological symptoms or problems. Hematology: No history of bleeding or clotting disorder. Pt is not taking anti- coagulation or platelet medications. No history of hematological symptoms or problems. Oncology: No history of CA metastasis, chemo within 30 days, or radiotherapy within 90 days. Has not lost 10% of body wt in 6 months. No history of oncological symptoms or problems. Psych: Anxiety Musculoskeletal: Back pain and Joint pain Skin: Negative for lesions, rash and itching. Objective PHYSICAL EXAM: VITALS: BP 127/79 Pulse 98 Temp (Src) 97.6 (Temporal Artery) Resp 20 Ht 5' 2 (1.58m) Wt 290 lb (131.5kg) SpO2 100% LMP 08/30/2021 BMI 53.03 kg/(m^2). General: Alert and oriented, No acute distress Skin: Normal color, no rash, no lesions. HEENT: EOM, pupils equal, round and reactive. Cardiovascular: Normal S1 & S2, no rubs, murmurs or gallops. No JVD. Pulse regular. Lungs: Normal breath sounds, no wheezes or crackles. Abdomen: Soft, non-tender, no rigidity., No masses or organomegaly. Extremities: No deformity, no edema or tenderness, no joint swelling or clubbing. Neurological: Normal cognition and motor skills. Gait normal. No weakness or sensory deficit. Diagnostic tests reviewed for today's visit: Lab Value Units Date High Low HB 12.4 g/dL 09/12/2021 15.5 11.5 HCT 38.3 % 09/12/2021 46.0 36.0 WBC 8.69 k/uL 09/12/2021 11.00 3.70 PLT 361 k/uL 09/12/2021 400 150 NA 142 mmol/L 09/12/2021 144 136 K 3.9 mmol/L 09/12/2021 5.1 3.7 GLUC 109 mg/dL 09/12/2021 99 74 BUN 11 mg/dL 09/12/2021 21 7 CREAT 0.73 mg/dL 09/12/2021 0.96 0.58 PTSEC 9.9 sec 09/12/2021 13.0 9.7 INR 1.0 no uni* 09/12/2021 1.3 0.9 APTT 27.7 sec 09/12/2021 32.4 23.0 ALT 14 U/L 09/12/2021 38 7 AST 16 U/L 09/12/2021 35 13 TBILI 0.3 mg/dL 09/12/2021 1.3 0.2 Urine dip shows: Recent Labs 09/12/21 1309 UGLUC Negative UBILI Negative UKET Negative UHB Negative UPH 6.5 UPROT Negative EKG in office 09/12/2021 Preliminary result: Normal sinus rhythm Normal ECG CT chest 04/05/21 1. 9 mm irregularly marginated left lower lobe nodule. Additional 7-8 mm left lower lobe perihilar nodules are identified. The possibility of underlying primary bronchogenic neoplasm or metastases cannot be excluded. Other differential considerations would include infectious/inflammatory etiologies. Clinical correlation and if necessary, further workup with PET/CT examination would be recommended. 2. Left hilar adenopathy, as above. This finding can also be further assessed on PET/CT evaluation. Spirometry 04/04/20 Spirometry indicates mild obstruction. There is a significant bronchodilator response. Assessment/Plan Obesity Assessment: diet and exercise encouraged, BMI 53 Migraines Assessment: managed with OTC medication, stable Asthma Assessment: managed with inhalers, follows up with pulmonology, stable Lung nodule Assessment: see HPI Smoker Assessment: current one pack per day smoker for 15 years METS: Take care of self; that is eating, dressing, bathing, using the toilet (2.75 METs) Walk a block or two on level ground (2.75 METs) Patient denies any chest pain or undue shortness of breath with the above physical activity. ASA Class: 3 ANESTHESIA FINDINGS: Intubation History: No prior intubation Significant Anesthesia Considerations: Has never had anesthesia Airway Exam: General: Morbid obesity Mallampati Score is CLASS III ULBT: Class II - Lower incisors can bite the upper lip below the yudelka line Neck: Distance from hyoid to mentum during neck extension is at least 3 finger breaths, Pain with neck movement, Short, thick neck Mouth: Normal tongue size and Mouth opening is 2 finger breaths Dentition: Intact Airway History: No prior intubation Sleep Apnea Probability Snores loudly: Yes Tired, fatigued or sleepy in daytime: Yes Stops breathing or choking/gasping during sleep: Yes High blood pressure: No Sleep Apnea Probability Score 04/01/2020 Sleep Apnea Screen V2 1.6 (Sleep study not recommended) PLAN This patient is optimally prepared for surgery. CONSULTS: Patient does not require consults for optimization at this time. The Following Tests/Procedures Have Been Initiated: Orders Placed This Encounter aspirin/acetaminophen/caffeine (EXCEDRIN MIGRAINE ORAL) Sig: Take by mouth as needed. ibuprofen (ADVIL) 200 mg tablet Sig: Take 200 mg by mouth every 6 hours as needed. acetaminophen (TYLENOL) 325 mg tablet Sig: Take 650 mg by mouth every 6 hours as needed. - labs from surgeon Planned Anesthetic: General Instructions Given to Patient: Instructions located in the after visit summary. Patient given verbal and written preop instructions and voices comprehension and compliance. SIGNATURE: Geovanna Dickinson APRN.CNP PATIENT NAME: Sandee Null DATE: September 12, 2021 TIME: 12:28 PM documented in this [facility]04-[facility] History of Present illness Narrative* Milvia Holliday, KNIFE BLADE POLISHER - 09/11/2021 2:42 PM EDT PULM FUNCTION SMARTBLOCK: Provider: Donald Huang MD Assisting Tech: Milvia Holliday RRT Spirometry: 1 DLCO: 1 System: [id number] documented in this [facility]04-[facility]-2022 NoteHNO ID: [id number] Author: Donald Huang MD Service: ? Author Type: Physician Type: Progress Notes Filed: 08/22/2021 10:10 AM Note Text: REASON FOR EVALUATION: Left lower lobe lung nodule. HPI: Sandee Null is a very pleasant 31-year old female who is a former 10+ pack year smoker and who has severe asthma. She was found to have a 4 mm left lower lobe lung nodule near the left major fissure on a chest CT in [facility] in 09/2015. She was unaware that she had the nodule at that time and there was no follow up. The patient was hospitaized on 03/10/20 for possible panic attack. She was at that time. She was having chest pain and difficulty breathing. She had chest pain and arm pain on the left side. She was told she had a lung nodule at that time. She knew about the lung nodule but was told that it was larger, now measuring 9.[address] chest on 04/05/21 showed: 9 mm irregularly marginated left lower lobe nodule. ?Additional 7-8 mm left lower lobe perihilar nodules are identified. The patient underwent a PET scan on 08/13/21 that showed: Few FDG avid left upper cervical lymph nodes are probably reactive. CHEST: Stable non-FDG avid 0.9 cm left lower lobe and mildly FDG avid 0.6 cm left lower lobe perihilar pulmonary nodules. New non-FDG avid right upper lobe nodular opacity may reflect an infectious/inflammatory process. Mildly FDG avid left infrahilar lymph node may be reactive. ABDOMEN/PELVIS: No FDG avid neoplastic process. EXTREMITIES/SKELETON: No suspicious FDG avid osseous lesion. The patient has been referred to me today to discuss surgical resection of her left lower lobe lung nodule. Clinically, the patient is well today and without complaints. ? ALLERGIES: No known drug allergies MEDICATIONS: Current Outpatient Medications on File Prior to Visit Medication Sig - famotidine (PEPCID) 10 mg tablet 20 mg. - albuterol HFA (PROVENTIL HFA, VENTOLIN HFA) 90 mcg/actuation inhaler Inhale 2 Puffs as instructed every 6 hours as needed. - budesonide-formoterol (SYMBICORT) 160-4.5 mcg/actuation inhaler Inhale 2 Puffs as instructed. - EPINEPHrine (EPIPEN) 0.3 mg/0.3 mL auto-injector Inject 0.3 mg intramuscularly at bedtime as needed. - Qubfbawi-Jm-Qvc-Fe-FA tab Take 1 tablet by mouth. - promethazine (PHENERGAN) 12.5 mg tablet Take 12.5 mg by mouth three times daily as needed. - tiotropium (SPIRIVA WITH HANDIHALER) 18 mcg inhalation capsule Inhale 1 capsule as instructed once daily. Use with HandiHaler. No current facility-administered medications on file prior to visit. PAST MEDICAL HISTORY: HISTORIES PAST MEDICAL HISTORY Diagnosis Date - Anxiety state - Asthma - Bipolar disorder (HCC) - Cigarette nicotine dependence without complication - Hypertrophic cardiomegaly - Lung nodule - OCD (obsessive compulsive disorder) - PTSD (post-traumatic stress disorder) No past surgical history on file. Social History Tobacco Use - Smoking status: Former Smoker Packs/day: 2.00 Types: Cigarettes Quit date: 12/03/2019 Years since quittin.7 - Smokeless tobacco: Never Used Vaping Use - Vaping Use: Never used Substance Use Topics - Alcohol use: Not on file - Drug use: Not on file FAMILY HISTORY Adopted: Yes Problem Relation Age of Onset - Alcohol/Drug Mother - Bipolar disorder Mother - Depression Mother - Alcohol/Drug Father - Depression Father REVIEW OF SYSTEMS: A 14-point review of systems was performed. All pertinent positives are listed in the HPI. All other systems reviewed are negative. EXAM: Physical Exam Vitals reviewed. Constitutional: General: He is not in acute distress. Appearance: Normal appearance. HENT: Head: Normocephalic and atraumatic. Nose: Nose normal. No congestion or rhinorrhea. Mouth/Throat: Mouth: Mucous membranes are moist. Pharynx: Oropharynx is clear. Eyes: General: No scleral icterus. Extraocular Movements: Extraocular movements intact. Conjunctiva/sclera: Conjunctivae normal. Pupils: Pupils are equal, round, and reactive to light. Neck: Vascular: No carotid bruit. Cardiovascular: Rate and Rhythm: Normal rate and regular rhythm. Pulses: Normal pulses. Heart sounds: Normal heart sounds. Pulmonary: Effort: Pulmonary effort is normal. No respiratory distress. Breath sounds: Normal breath sounds. No stridor. No wheezing, rhonchi or rales. Chest: Chest wall: normal. Abdominal: General: Abdomen is flat. Bowel sounds are normal. There is no distension. Palpations: Abdomen is soft. There is no mass. Tenderness: There is no abdominal tenderness. There is no right CVA tenderness, guarding or rebound. Hernia: No hernia is present. Musculoskeletal: General: No swelling, tenderness, deformity or signs of injury. Normal range of motion. Cervical back: Normal range of motion and neck supple. No rigidity or tenderness. Right lower leg: No vincent (more content not included)...[facility] 08-22-2021 Instructions* Patient Instructions* Destiny Huang - 08/22/2021 9:38 AM EDT Please call us with how you would like to proceed. documented in this encounterSouth[facility]04-[facility]-2022 History of Present illness Narrative* Donald Huang MD - 08/22/2021 9:30 AM EDT REASON FOR EVALUATION: Left lower lobe lung nodule. HPI: Sandee Null is a very pleasant 31-year old female who is a former 10+ pack year smoker andwho has severe asthma. She was found to have a 4 mm left lower lobe lung nodule near the left majorfissure on a chest CT in [facility] in 09/2015. She was unaware that she had the nodule at that time and there was no follow up. The patient was hospitaized on 03/10/20 for possible panic attack. She was at that time. She was having chest pain and difficulty breathing. She had chest pain and arm pain on the left side. She was told she had a lung nodule at that time. She knew about the lung nodule but was told that it was larger, now measuring 9.[address] chest on 04/05/21 s howed: 9 mm irregularly marginated left lower lobe nodule. Additional 7-8 mm left lower lobe perihilar nodules are identified. The patient underwent a PET scan on 08/13/21 that showed: Few FDG avid left upper cervical lymph nodes are probably reactive. CHEST: Stable non-FDG avid 0.9 cm left lower lobe and mildly FDG avid 0.6 cm left lower lobe perihilar pulmonary nodules. New non-FDG avid right upper lobe nodular opacity may reflect an infectious/inflammatory process. Mildly FDG avid left infrahilar lymph node may be reactive. ABDOMEN/PELVIS: No FDG avid neoplastic process. EXTREMITIES/SKELETON: No suspicious FDG avid osseous lesion. The patient has been referred to me today to discuss surgical resection of her left lower lobe lungnodule. Clinically, the patient is well today and without complaints. ALLERGIES: No known drug allergies MEDICATIONS: Current Outpatient Medications on File Prior to Visit Medication Sig famotidine (PEPCID) 10 mg tablet 20 mg. albuterol HFA (PROVENTIL HFA, VENTOLIN HFA) 90 mcg/actuation inhaler Inhale 2 Puffs as instructed every 6 hours as needed. budesonide-formoterol (SYMBICORT) 160-4.5 mcg/actuation inhaler Inhale 2 Puffs as instructed. EPINEPHrine (EPIPEN) 0.3 mg/0.3 mL auto-injector Inject 0.3 mg intramuscularly at bedtime as needed. Rqjuuoiy-Pu-Jxt-Fe-FA tab Take 1 tablet by mouth. promethazine (PHENERGAN) 12.5 mg tablet Take 12.5 mg by mouth three times daily as needed. tiotropium (SPIRIVA WITH HANDIHALER) 18 mcg inhalation capsule Inhale 1 capsule as instructed once daily. Use with HandiHaler. No current facility-administered medications on file prior to visit. PAST MEDICAL HISTORY: HISTORIES PAST MEDICAL HISTORY Diagnosis Date Anxiety state Asthma Bipolar disorder (HCC) Cigarette nicotine dependence without complication Hypertrophic cardiomegaly Lung nodule OCD (obsessive compulsive disorder) PTSD (post-traumatic stress disorder) No past surgical history on file. Social History Tobacco Use Smoking status: Former Smoker Packs/day: 2.00 Types: Cigarettes Quit date: 12/03/2019 Years since quittin.7 Smokeless tobacco: Never Used Vaping Use Vaping Use: Never used Substance Use Topics Alcohol use: Not on file Drug use: Not on file FAMILY HISTORY Adopted: Yes Problem Relation Age of Onset Alcohol/Drug Mother Bipolar disorder Mother Depression Mother Alcohol/Drug Father Depression Father REVIEW OF SYSTEMS: A 14-point review of systems was performed. All pertinent positives are listed in the HPI. All other systems reviewed are negative. EXAM: Physical Exam Vitals reviewed. Constitutional: General: He is not in acute distress. Appearance: Normal appearance. HENT: Head: Normocephalic and atraumatic. Nose: Nose normal. No congestion or rhinorrhea. Mouth/Throat: Mouth: Mucous membranes are moist. Pharynx: Oropharynx is clear. Eyes: General: No scleral icterus. Extraocular Movements: Extraocular movements intact. Conjunctiva/sclera: Conjunctivae normal. Pupils: Pupils are equal, round, and reactive to light. Neck: Vascular: No carotid bruit. Cardiovascular: Rate and Rhythm: Normal rate and regular rhythm. Pulses: Normal pulses. Heart sounds: Normal heart sounds. Pulmonary: Effort: Pulmonary effort is normal. No respiratory distress. Breath sounds: Normal breath sounds. No stridor. No wheezing, rhonchi or rales. Chest: Chest wall: normal. Abdominal: General: Abdomen is flat. Bowel sounds are normal. There is no distension. Palpations: Abdomen is soft. There is no mass. Tenderness: There is no abdominal tenderness. There is no right CVA tenderness, guarding or rebound. Hernia: No hernia is present. Musculoskeletal: General: No swelling, tenderness, deformity or signs of injury. Normal range of motion. Cervical back: Normal range of motion and neck supple. No rigidity or tenderness. Right lower leg: No edema. Left lower leg: No edema. Lymphadenopathy: Cervical: No cervical adenopathy. Skin: General: Skin is warm and dry. Coloration: Skin is not jaundiced or pale. Findings: No bruising, erythema, lesion or rash. Neurological: General: No focal deficit present. Mental Status: He is alert. Mental status is at baseline. Cranial Nerves: No cranial nerve deficit. Sensory: No sensory deficit. Motor: No weakness. Coordination: Coordination normal. Gait: Gait normal. Deep Tendon Reflexes: Reflexes normal. Psychiatric: Behavior: Behavior normal. Thought Content: Thought content normal. Judgment: Judgment normal. DIAGNOSTICS: I have personally reviewed the patient's available diagnotic studies, including: PET 08/13/2021 IMPRESSION: 1. NECK: * Few FDG avid left upper cervical lymph nodes are probably reactive. 2. CHEST: * Stable non-FDG avid 0.9 cm left lower lobe and mildly FDG avid 0.6 cm left lower lobe perihilar pulmonary nodules. Differential includes evolving infectious/inflammatory etiologies or possibly malignancy/metastases. Suggest a follow-up CT chest in 3 months to assess stability. * New non-FDG avid right upper lobe nodular opacity may reflect an infectious/inflammatory process. * Mildly FDG avid left infrahilar lymph node may be reactive. 3. ABDOMEN/PELVIS: * No FDG avid neoplastic process. 4. EXTREMITIES/SKELETON: * No suspicious FDG avid osseous lesion. CT Chest 04/05/21: DATE OF EXAM: Apr 05 2021 11:52AM [facility] 0541 - CT CHEST WO IVCON / PROCEDURE REASON: Lung nodules * * * * Physician Interpretation * * * * EXAMINATION: CHEST CT WITHOUT CONTRAST CLINICAL HISTORY: Lung nodules Technique: Spiral CT acquisition of the chest from the thoracic inlet to the upper abdomen without contrast. MQ: CTCWOR_4 CT Dose-Length Product: 716 mGy*cm CT Dose Reduction Employed: mAs-kVp adjusted based on patient size-age Comparison: None. RESULT: Limitations: None. Lines, tubes, and devices: None. Lung parenchyma and airways: The trachea and major airways appear patent. Subsegmental areas of atelectasis/scarring within the right middle lobe and left lingula are noted. Irregularly marginated 9 x 8 mm left lower lobe nodule, image 142, series 6 is noted. Additional 7-8 mm left perihilar nodules, images 98, 112, 119, series 6. Pleural space: No pleural effusion. No substantial pleural thickening. Lower neck, lymph nodes, and mediastinum: The visualized thyroid gland appears unremarkable. No substantial supraclavicular or axillary lymphadenopathy. Mild soft tissue prominence within the anterior mediastinum is felt to relate to residual thymus. Scattered subcentimeter mediastinal lymph nodes are appreciated. Mild left hilar adenopathy is appreciated, poorly characterized on these unenhanced images, measuring approximately 1.6 x 1.3 cm, image 99, series 5. Heart, pericardium, and thoracic vessels: The thoracic aorta is normal in caliber. No substantial pericardial effusion. Bones/Soft Tissues: No osseous destructive process. Upper Abdomen: Limited unenhanced images through the upper abdomen appear unremarkable. No adrenal mass. [employer] (topogram) images: No additional findings. Spirometry 04/04/20: [facility] [address] [place] [address] Test Date: 2020-04-04 Pat Name: SANDEE NULL Department: Room: Gender: Female Classifier Tender: Gypsy Stokes : 1990 Requested By: Order Number: [id number] Reading MD: Tamar Sims MD Interpretive Statements PRE BD SPIROMETRY: The exhaled (FVC) and (FEV1) spirometry maneuver meets ATS/ERS acceptability and repeatability standards. The inspired (FIVC) spirometry maneuver is [less than] the FVC maneuver. Medications and Allergies were reviewed for possible drug interactions per policy. No contraindications or sensitivities were noted. Meds taken: Sym bicort 160/4.5 MDI 2 puffs and Albuterol MDI 2 puffs taken approximately 24 hours before testing. 2 puffs albuterol (180 mcg) delivered by MDI via valved holding chamber, HRpre=96/min, HRpost= 102/min. POST BD SPIROMETRY: The exhaled (FVC) and (FEV1) spirometry maneuver meets ATS/ERS acceptability and repeatability standards. The inspired (FIVC) spirometry maneuver is [less than] the FVC maneuver.//AG IMPRESSION: Spirometry indicates mild obstruction. There is a significant bronchodilator response. Electronically Signed On 04-04-2020 17:32:16 EST by Fellow Enmanuel Espana MD ~ Spirometry shows a reduced FEV1/FVC ratio; but individually normal FVC and FEV1 predicted values.This pattern indicates mild obstruction or a normal variant. Electronically Signed On 04-05-2020 12:47:57 EST by Tamar Sims MD Reinier LLN Pred ULN % Post % %Chg FVC L 4.54 2.91 3.64 4.39 125.0 4.63 127.4 1.9 FEV1 L 3.23 2. 49 3.10 3.70 104.0 3.69 119.1 14.5 FEV1/FVC % 71 74 86 95 82.8 80 93.1 12.4 PEF L/s 6.92 5.14 6.78 8.43 101.9 8.70 128.2 25.8 FEF50% L/s 2.48 2.19 4.00 5.82 62.0 3.92 98.0 58.1 FIF50% L/s 4.44 3.79 -14.7 FE%FIF % 55 103 89.0 FIVC L 4.23 4.32 2.0 JVN00-14% L/s 2.08 2.31 3.55 4.99 58.5 3.39 95.3 62.9 COJ847% sec 12.32 9.33 -24.3 FETPEF sec 0.06 0.09 62.4 VBe%FV % 2 3 75.2 VBEex L 0.08 0.14 78.6 FIVC/FVC % 93 93 0.1 ----- ----- ----- ----- ----- ----- ----- ----- ----- ----- ----- ----- ----- ----- ----- ----- ----- ----- ----- ----- ----- ---- - ----- ----- ----- ----- ----- ----- ----- ----- ----- ----- Pre Spirometry Post Spirometry Supine Pre Spirometry Post Spirometry Supine Lung Volumes Lung Diffusion PREDICTED VALUES: The reference values for spirometry are those of Martinez reeves al (Martinez GLI 2012): Respiratory Journal 2012; 40: 9270-0981, 2012. Tech Comment: IMPRESSIONS: Sandee Null is a very pleasant 31-year old female who is a former 10+ pack year smoker and who has severe asthma. She was found to have a 4 mm left lower lobe lung nodule near the left major fissure on a chest CT in [facility] in 09/2015. She was unaware that she had the nodule at that time and there was no follow up. The patient was hospitaized on 03/10/20 for possible panic attack. Shewas at that time. She was having chest pain and difficulty breathing. She had chest pain and arm pain on the left side. She was told she had a lung nodule at that time. She knew about the lung nodule but was told that it was larger, now measuring 9.[address] chest on 04/05/21 showed: 9 mm irregularly marginated left lower lobe nodule. Additional 7-8 mm left lower lobe perihilar nodules are identified. The patient underwent a PET scan on 08/13/21 that showed: Few FDG avid left upper cervical lymph nodes are probably reactive. CHEST: Stable non-FDG avid 0.9 cm left lower lobe and mildly FDG avid 0.6 cm left lower lobe perihilar pulmonary nodules. New non-FDG avid right upper lobe nodular opacity may reflect an infectious/inflammatory process. Mildly FDG avid left infrahilar lymph node may be reactive. ABDOMEN/PELVIS: No FDG avid neoplastic process. EXTREMITIES/SKELETON: No suspicious FDG avid osseous lesion. The patient has been referred to me today to discuss surgical resection of her left lower lobe lungnodule. Clinically, the patient is well today and without complaints. I spent more than 45 minutes with this patient counseling the patient on her very slowly enlarging left lower lobe lung nodule. I personally reviewed all available diagnostic studies and documentation. I discussed management of this patient's slowly enlarging left lower lobe lung nodule. The patient is young and with few risk factors for non-small cell lung cancer. We discussed the possibility thatthis nodule represents an infectious process or possibly a carcinoid tumor. I discussed the fact that the nodule is small and in a difficult place to perform a diagnostic biopsy. I discussed the option(s) of ongoing surveillance versus surgical resection. After a through discussion of the risks, options, benefits and alternatives the patient said that she would like to have the nodule surgically removed. She has three children and told me that her sister would be coming to visit this summer and could watch her children to accommodate the operation. I gave the patient my business card and asked her to call me to schedule pre-operative PFT testing, PAC appointment and operation. Once again, thank you for your kind referral of Sandee Null to me. If you have any questions or if I can be of help to you with any of your other patients, please do not hesitate to contact me. [facility] Miscellaneous Notes* Telephone Encounter - Radha Vang MD - 08/15/2021 1:12 PM EDT Discussed with Ms. Null that IR does not think that this nodule is easily reachable by IR. Yanira wants to a surgeon about possible excision of nodule. I will place a referral to thoracic surgery. documented in [facility] Miscellaneous Notes* Telephone Encounter - Hannah Myers RN - 08/15/2021 9:[address] Vang paged to notify of lung biopsy request denial. Per Dr. Mena, Unable to get to it dueto location. Call back number and physician name provided in page. documented in this encounter[facility]22 History of Present illness Narrative* Kalyn Phillips RT(R) - 08/13/2021 10:00 AM EDT RADIOLOGY SERVICE PROGRESS NOTE SERVICE DATE: 08/13/2021 SERVICE TIME: 10:23 AM PATIENT IDENTITY VERIFICATION COMPLETED USING TWO (2) STANDARD IDENTIFIERS: Name and Date of confirmed by patient verbally FALL SCREENING: Has the patient had 2 falls in the last year or 1 fall with injury or currently using an Ambulatory Assistive Device (Walker, Cane, Wheelchair, Crutches, etc.)? No PATIENT GENDER DATA: .female : No ALLERGIES: Reviewed and unchanged MEDICATIONS REVIEWED: Yes PATIENT RELEVANT IMPLANT DATA REVIEWED: Not Applicable CREATININE: No results found for: CREAT, EGFROTH, EGFRAA P.O.C.T. RESULTS: N/A August 13, [address] PERFORMED: No IV SITE: Ambulatory: A peripheral IV was started in the Right hand with a Angio cath: 24 gauge. POST EXAM PIV STATUS: Discontinued PROCEDURE TYPE: NM INJECT: PET/CT BODY SCAN. 17.0 mCi F18 FDG. No other medications given.. ADMINISTRATION TIME: 1015 PATIENT DISCHARGED TO: Ambulatory patient, left NM department area. A Diagnostic radioactive procedure has taken place, with no further precautions necessary other than routine body substance precautions. More information regarding radiation safety can be found usingthis link: [email or web address] SIGNATURE: RT Michael(Yunior) PATIENT NAME: Sandee Null DATE: August 13, 2021 TIME: 10:23 AM PAGER/CONTACT #: [facility] Diagnosis Nodule of left lung- Primary Solitary pulmonary nodule documented in [facility]* Diagnosis Lung nodule- Primary Solitary pulmonary nodule documented in [facility]* Diagnosis Preoperative testing- Primary Preoperative examination, unspecified Lung nodule Solitary pulmonary nodule Lung nodule Solitary pulmonary nodule documented in [facility]* Diagnosis Preoperative testing Preoperative examination, unspecified Lung nodule Solitary pulmonary nodule documented in this encounter [facility] note* Diagnosis Preoperative testing Preoperative examination, unspecified Lung nodule Solitary pulmonary nodule documented in [facility]* Diagnosis Pre-op evaluation- Primary Preoperative examination, unspecified Lung nodule Solitary pulmonary nodule Migraine without status migrainosus, not intractable, unspecified migraine type Uncomplicated asthma, unspecified asthma severity, unspecified whether persistent Former smoker Personal history of tobacco use, presenting hazards to health Class 3 severe obesity due to excess calories without serious comorbidity with body mass index (BMI) of 50.0 to 59.9 in adult ([facility]) BMI 50.0-59.9, adult ([facility]) Body Mass Index 50.0-59.9, adult PTSD (post-traumatic stress disorder) Posttraumatic stress disorder Bipolar 1 disorder ([facility]) Bipolar I disorder, most recent episode (or current) unspecified Smoker Tobacco use disorder Lung nodule Solitary pulmonary nodule [facility] Diagnosis Lung nodule- Primary Solitary pulmonary nodule Lung nodule Solitary pulmonary nodule [facility]* Diagnosis Lung nodule- Primary Solitary pulmonary nodule [facility]* Diagnosis Status post lung surgery- Primary Other postprocedural status documented in this [facility]* Diagnosis Acute post-operative pain- Primary [facility]* Diagnosis Acute post-operative pain [facility]* Diagnosis Left lower lobe pulmonary nodule- Primary documented in [facility]* Diagnosis Primary malignant neoplasm (HCC) Other malignant neoplasm without specification of site documented in this [facility]* Diagnosis Onset Date Resolution Status Bipolar disorder acute Major depressive disorder ac eugenia Suicidal ideations acute [facility] Work Phone: Evaluation note* Diagnosis Lung nodules- Primary Other nonspecific abnormal finding of lung field Moderate persistent asthma without complication Unspecified asthma BMI 50.0-59.9, adult (HCC) Body Mass Index 50.0-59.9, adult Patient non adherence Personal history of noncompliance with medical treatment, presenting hazards to health Nodule of left lung Solitary pulmonary nodule 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) documented in this encounter [facility] Narrative - Reported* Type Description Date Medical History asthma Medical History PTSD Medical History depression Medical History anxiety Hospitalization History dehydration Hospitalization History child [employer] Other Reason for referral (narrative)* Outpatient Procedure (Routine) - Pending Review Specialty Diagnoses / Procedures Referred By Ruel t Referred To Contact [facility] Diagnoses Preoperative testing Procedures ECG COMPLETE ECG ROUTINE ECG W/LEAST 12 LDS W/I&[place] [address] [place] [address] [facility] [place] [facility] [place] [address] Referral ID Status Reason Start Date Expiration Date Visits Requested Visits Authorized [id number] Pending Review Auto-Generat ed Referral 09/11/2021 08/28/2022 1 1 * Outpatient Procedure (Routine) - Pending Review Specialty Diagnoses / Procedures Referred By Contac t Referred To Contact [facility] Diagnoses Preoperative testing Procedures SPIROMETRY BASELINE ONLY SPMTRY W/VC EXPIRATORY AYAKA W/[place] [address] [place] [address] Respiratory [place] [address] [place] [address] Referral ID Status Reason Start Date Expiration Date Visits Requested Visits Authorized [id number] Pending Review Auto-Generat ed Referral 08/28/2021 09/27/2022 1 1 * Outpatient Procedure (Routine) - Pending Review Specialty Diagnoses / Procedures Referred By Contac t Referred To Contact [facility] Diagnoses Preoperative testing Procedures LUNG DIFFUSION CAPACITY (DLCO) [place] [address] [place] [address] Respiratory [place] [address] [place] [address] Referral ID Status Reason Start Date Expiration Date Visits Requested Visits Authorized [id number] Pending Review Auto-Generat ed Referral 08/28/2021 09/27/2022 1 1 [facility] for referral (narrative)* Diagnostic Procedure Only (Routine) - Closed Specialty Diagnoses / Procedures Referred By Contac t Referred To Contact [facility]LE[facility]ULAR [facility] FUNCTIONAL [facility]AGING Diagnoses Primary malignant neoplasm (HCC) Procedures NM PET/CT SKULL-THIGH INITIAL TUMOR IMAGING PET W/[place] [address] [place] [address] Molecular & Functional Imaging [address] [place] [address] Referral ID Status Reason Start Date Expiration Date V isits Requested Visits Authorized [id number] Closed Auto-Generate d Referral 04/06/2021 10/01/2021 2 2 [facility]* Diagnostic Procedure Only (Routine) - Closed Specialty Diagnoses / Procedures Referred By Ruel schmitt Referred To Contact MOLECULAR [facility] FUNCTIONAL IMAGING Diagnoses Primary malignant neoplasm (HCC) Procedures NM PET/CT SKULL-THIGH INITIAL TUMOR IMAGING PET W/[place] [address] [place] [address] Molecular & Functional Imaging [address] [place] [address] Referral ID Status Reason Start Date Expiration Date V isits Requested Visits Authorized [id number] Closed Auto-Generate d Referral 04/06/2021 10/01/2021 2 2 [facility] Summary Purpose Family History No Family History Records FoundNo Family History Records FoundNo Family History Records FoundNo Family History Records FoundNo Family History Records FoundNo Family History Records FoundNo Family History Records FoundNo Family History Records FoundNo Family History Records FoundNo Family History Records Found Advance Directives No Advanced Directives Records FoundDocuments on File Type Date Recorded 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 Advance Directive(s) 07/24/2019 10:21 PM Documents on File Type Date Recorded 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 Advance Directive(s) 07/24/2019 10:21 PM Documents on File Type Date Recorded 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 Advance Directive(s) 08/31/2021 4:56 PM Advance Directive(s) 07/24/2019 10:21 PM Latest Code Status on File Code Status Date Activated Date Inactivated Comments Full Code 09/18/2021 1:00 PM Full Code Order Discussed With: Patient Latest Code Status on File Code Status Date Activated Date Inactivated Comments Full Code 09/18/2021 1:00 PM 09/19/2021 6:37 PM Latest Code Status on File Code Status Date Activated Date Inactivated Comments Full Code 09/18/2021 1:00 PM 09/19/2021 6:37 PM Question Answer Comments Full Code Order Discussed With: Patient Advance Directive Response Recorded Date/ Time Advance Directives No September 12, 018 11:56am Reason for Referral Specialty Diagnoses / Procedures Referred By Ruel schmitt Referred To Contact Diagnoses Nodule of left lung Procedures CONSULT [place] [address] [place] [address] Referral ID Status Reason Start Date Expiration Date Visits Requested Visits Authorized [id number] Ref Not Required PCP Requested Referral 08/15/2021 08/15/2022 1 1 Specialty Diagnoses / Procedures Referred By Contac [place] [address] [place] [address] Referral ID Status Reason Start Date Expiration Date Visits Re quested Visits Authorized [id number] Closed 1 1 Specialty Diagnoses / Procedures Referred By Contac t Referred To Contact CT IMAGING Diagnoses Lung nodules Procedures CT CHEST WO IVCON DIAGNOSTIC COMPUTED TOMOGRAPHY THORAX W/[place] [address] [place] [address] [facility] [place] [address] Referral ID Status Reason Start Date Expiration Date Visits Requested Visits Authorized [id number] Authorized Auto-Generat ed Referral 3 04/16/2024 1 1 Chief Complaint and Reason for Visit Chief Complaint Suicidal Ideation Reason for Visit Bipolar disorder Major depressive disorder Suicidal ideations Additional Source Comments INFORMATION SOURCE (unrecogn ized section and content) DATE CREATED AUTHOR 11/11/2017 [facility] DATE CREATED AUTHOR AUTHOR'S ORGANIZ ATION 11/11/2017 [facility] DATE CREATED AUTHOR AUTHOR'S ORGANIZ ATION 04/14/2020 [facility] DATE CREATED AUTHOR AUTHOR'S ORGANIZ ATION 04/22/2020 [facility] DATE CREATED AUTHOR AUTHOR'S ORGANIZ ATION 08/16/2021 [facility] DATE CREATED AUTHOR AUTHOR'S ORGANIZ ATION 09/22/2021 [facility] DATE CREATED AUTHOR AUTHOR'S ORGANIZ ATION 09/24/2021 [facility] DATE CREATED AUTHOR AUTHOR'S ORGANIZ ATION 03/19/2023 [facility] DATE CREATED AUTHOR AUTHOR'S ORGANIZ ATION 08/12/2023 [facility] DATE CREATED AUTHOR AUTHOR'S ORGANIZ ATION 11/15/2023 [facility] Source Comments (unrecognize d section and content) In the event this informatio n is protected by the Federal Confidentiality of Alcohol and Drug Abuse Patient Records regulations: The Federal rules restrict any use of the information to criminally investigate or prosecute any alcohol or drug abuse patient.[facility] CenterIn the event this information is protected by the Federal Confidentiality of Alcohol and Drug Abuse Patient Records regulations: The Federal rules restrict any use of the information to criminally investigate or prosecute any alcohol or drug abuse patient.[facility] CenterIn the event this information is protected by the Federal Confidentiality of Alcohol and Drug Abuse Patient Records regulations: The Federal rules restrict any use of the information to criminally investigate or prosecute any alcohol or drug abuse patient.[facility] CenterIn the event this information is protected by the Federal Confidentiality of Alcohol and Drug Abuse Patient Records regulations: The Federal rules restrict any use of the information to criminally investigate or prosecute any alcohol or drug abuse patient.[facility] CenterIn the event this information is protected by the Federal Confidentiality of Alcohol and Drug Abuse Patient Records regulations: The Federal rules restrict any use of the information to criminally investigate or prosecute any alcohol or drug abuse patient.[facility] CenterIn the event this information is protected by the Federal Confidentiality of Alcohol and Drug Abuse Patient Records regulations: The Federal rules restrict any use of the information to criminally investigate or prosecute any alcohol or drug abuse patient.[facility] CenterIn the event this information is protected by the Federal Confidentiality of Alcohol and Drug Abuse Patient Records regulations: The Federal rules restrict any use of the information to criminally investigate or prosecute any alcohol or drug abuse patient.[facility] CenterIn the event this information is protected by the Federal Confidentiality of Alcohol and Drug Abuse Patient Records regulations: The Federal rules restrict any use of the information to criminally investigate or prosecute any alcohol or drug abuse patient.[facility] CenterIn the event this information is protected by the Federal Confidentiality of Alcohol and Drug Abuse Patient Records regulations: The Federal rules restrict any use of the information to criminally investigate or prosecute any alcohol or drug abuse patient.[facility] CenterIn the event this information is protected by the Federal Confidentiality of Alcohol and Drug Abuse Patient Records regulations: The Federal rules restrict any use of the information to criminally investigate or prosecute any alcohol or drug abuse patient.[facility] CenterIn the event this information is protected by the Federal Confidentiality of Alcohol and Drug Abuse Patient Records regulations: The Federal rules restrict any use of the information to criminally investigate or prosecute any alcohol or drug abuse patient.[facility] CenterIn the event this information is protected by the Federal Confidentiality of Alcohol and Drug Abuse Patient Records regulations: The Federal rules restrict any use of the information to criminally investigate or prosecute any alcohol or drug abuse patient.[facility] CenterIn the event this information is protected by the Federal Confidentiality of Alcohol and Drug Abuse Patient Records regulations: The Federal rules restrict any use of the information to criminally investigate or prosecute any alcohol or drug abuse patient.[facility] CenterIn the event this information is protected by the Federal Confidentiality of Alcohol and Drug Abuse Patient Records regulations: The Federal rules restrict any use of the information to criminally investigate or prosecute any alcohol or drug abuse patient.[facility] CenterIn the event this information is protected by the Federal Confidentiality of Alcohol and Drug Abuse Patient Records regulations: The Federal rules restrict any use of the information to criminally investigate or prosecute any alcohol or drug abuse patient.[facility] CenterIn the event this information is protected by the Federal Confidentiality of Alcohol and Drug Abuse Patient Records regulations: The Federal rules restrict any use of the information to criminally investigate or prosecute any alcohol or drug abuse patient.[facility] CenterIn the event this information is protected by the Federal Confidentiality of Alcohol and Drug Abuse Patient Records regulations: The Federal rules restrict any use of the information to criminally investigate or prosecute any alcohol or drug abuse patient.[facility] Reason for Visit (unrecogniz ed section and content) Reason Comments Patient Update Reason Comments Results Reason Comments New Patient Reason Comments Spirometry Specialty Diagnoses / Procedures Referred By Contac t Referred To [facility] [place] Diagnoses Preoperative testing Procedures SPIROMETRY BASELINE ONLY SPMTRY W/VC EXPIRATORY AYAKA W/[place] [address] [place] [address] [address] Referral ID Status Reason Start Date Expiration Date V isits Requested Visits Authorized [id number] Closed Auto-Generate d Referral 08/28/2021 09/27/2022 1 1 Specialty Diagnoses / Procedures Referred By Contac t Referred To [facility] [place] Diagnoses Preoperative testing Procedures LUNG DIFFUSION CAPACITY (DLCO) [place] [address] [place] [address] [address] Referral ID Status Reason Start Date Expiration Date V isits Requested Visits Authorized [id number] Closed Auto-Generate d Referral 08/28/2021 09/27/2022 1 1 Reason Comments Established Patient Sign consent surgery 09/18/[address] Huang Reason Comments Post Op 4 week CXR prior Lukasz marilyn with Dr. Huang 09/18/21 Reason Comments Radiology NM Specialty Diagnoses / Procedures Referred By Contóscar t Referred To Contact MOLECULAR & FUNCTIONAL IMAGING Diagnoses Primary malignant neoplasm (HCC) Procedures NM PET/CT SKULL-THIGH INITIAL TUMOR IMAGING PET W/[place] [address] [place] [address] Molecular & Functional Imaging [address] [place] [address] Referral ID Status Reason Start Date Expiration Date V isits Requested Visits Authorized [id number] Closed Auto-Generate d Referral 04/06/2021 10/01/2021 2 2 Reason Comments Asthma Care Teams (unrecognized sec tion and content) Gaming 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 Relationship Specialty [place] [address] [place] [address] Referring Pulmonary and Critical Care Medicine 08/15/21 Gaming Dealer Relationship Specialty [place] [address] [place] [address] Referring Pulmonary and Critical Care Medicine 08/15/21 Gaming Dealer Relationship Specialty [place] [address] [place] [address] Referring Pulmonary and Critical Care Medicine 08/15/21 Gaming Dealer Relationship Specialty Start Date End Date Qasim Daley MD [address] [place] [address] PCP - General Internal Medicine 08/31/21 [place] [address] [place] [address] Referring Pulmonary and Critical Care Medicine 08/15/21 Gaming Dealer Relationship Specialty Start Date End Date Qasim Daley MD [address] [place] [address] PCP - General Internal Medicine 08/31/21 [place] [address] [place] [address] Referring Pulmonary and Critical Care Medicine 08/15/21 Gaming Dealer Relationship Specialty Start Date End Date Qasim Daley MD [address] [place] [address] PCP - General Internal Medicine 08/31/21 [place] [address] [place] [address] Referring Pulmonary and Critical Care Medicine 08/15/21 Gaming Dealer Relationship Specialty Start Date End Date Qasim Daley MD [address] [place] [address] PCP - General Internal Medicine 08/31/21 [place] [address] [place] [address] Referring Pulmonary and Critical Care Medicine 08/15/21 Gaming Dealer Relationship Specialty Start Date End Date Qasim Daley MD [address] [place] [address] PCP - General Internal Medicine 08/31/21 [place] [address] [place] [address] Referring Pulmonary and Critical Care Medicine 08/15/21 Gaming Dealer Relationship Specialty Start Date End Date Qasim Daley MD [address] [place] [address] PCP - General Internal Medicine 08/31/21 [place] [address] [place] [address] Referring Pulmonary and Critical Care Medicine 08/15/21 Gaming Dealer Relationship Specialty Start Date End Date Qasim Daley MD [address] [place] [address] PCP - General Internal Medicine 08/31/21 [place] [address] [place] [address] Referring Pulmonary and Critical Care Medicine 08/15/21 Gaming Dealer Relationship Specialty Start Date End Date Qasim Daley MD [address] [place] [address] PCP - General Internal Medicine 08/31/21 [place] [address] [place] [address] Referring Pulmonary and Critical Care Medicine 08/15/21 Team Status: Active Member Role Status Dates PHYSICIAN NO FAMILY Primary Care Provider Active Team Status: Inactive Member Role Status Dates PHYSICIAN NO FAMILY Primary Care Provider Active Jus Santos MD Admit Provider, Attending Provider Active Gaming Dealer Relationship Specialty Start Date End Date Qasim Daley MD [address] [place] [address] PCP - General Internal Medicine 08/31/21 Radha Vang MD [address] [place] [id number] Referring Pulmonary and Critical Care Medicine 08/15/21 FOR RECORDS PERTAINING TO PATIENTS WHO ARE OR HAVE BEEN ENROLLED IN A CHEMICAL DEPENDENCY/SUBSTANCEABUSE PROGRAM, SOME INFORMATION MAY BE OMITTED. This clinical summary was aggregated from multiple sources. Caution should be exercised in using it in the provision of clinical care. This summary normalizes information from multiple sources, and as a consequence, information in this document may materially change the coding, format and clinical context of patient data. In addition, data may be omitted in some cases. CLINICAL DECISIONS SHOULD BE BASED ON THE PRIMARY CLINICAL RECORDS. [facility] [facility]. provides no warranty or guarantee of the accuracy or completeness of information in this document.
[2024-02-03 22:42] LABS: Internal Control Within Normal Limits; SARS-CoV-2 Ag NEGATIVE (NEGATIVE)
--- NOTE | 2024-02-03 22:57 | ECG_ITS ---
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
[2024-02-03] MEDS: 0.9 % SODIUM CHLORIDE 1,000 ML 1000 ML IV (23:26)
[2024-02-03] MEDS: KETOROLAC TROMETHAMINE 30 MG/ML VIAL IVP (23:26)
[2024-02-03] MEDS: METHYLPREDNISOLONE SOD SUCC PF 125 MG/2 ML VIAL IVP (23:26)
[2024-02-03 23:36] LABS: Basophils Absolute Auto 0.1 10^3/uL (0.0-0.1); Basophils Percent Auto 0.7 % (0.2-2.0); Eosinophils Absolute Auto 0.8 10^3/uL (0.0-0.7); Eosinophils Percent Auto 6.8 % (0.9-7.0); Hematocrit 38.8 % (36.0-48.0); Hemoglobin 12.8 g/dL (12.0-16.0); Immature Granulocytes Abs Auto 0.03 10^3/uL (0.00-0.03); Immature Granulocytes Pct Auto 0.3 % (0.0-0.5); Lymphocytes Absolute Auto 2.6 10^3/uL (1.2-3.8); Lymphocytes Percent Auto 22.4 % (20.5-60.0); Mean Corpuscular Hemoglobin 28.4 pg (26.7-34.0); Monocytes Absolute Auto 0.6 10^3/uL (0.3-0.8); Monocytes Percent Auto 4.8 % (1.7-12.0); Neutrophils Absolute Auto 7.5 10^3/uL (1.4-6.5); Platelet Count 333 10^3/uL (150-450); Red Blood Count 4.51 10^6/uL (4.20-5.40); Red Cell Distribution Width 13.2 % (11.0-15.0); White Blood Count 11.6 10^3/uL (4.0-11.0)
[2024-02-03] MEDS: IPRATROPIUM/ALBUTEROL SULFATE 3 ML AMPUL.NEB IH (23:40)
[2024-02-03] MEDS: ONDANSETRON PF 4 MG/2 ML VIAL IV (23:41)
[2024-02-03 23:51] LABS: D Dimer 0.42 mg/L FEU (<=0.59)
[2024-02-03 23:52] LABS: Alanine Aminotransferase 22 U/L (14-59); Albumin Globulin Ratio 0.9; Albumin Level 3.5 g/dL (3.4-5.0); Alkaline Phosphatase 91 U/L (46-116); Anion Gap 8.5; Aspartate Amino Transferase 18 U/L (15-37); BUN Creatinine Ratio 13.7; Bilirubin Total 0.3 mg/dL (0.2-1.0); Calcium 8.7 mg/dL (8.5-10.1); Carbon Dioxide 29.8 mmol/L (21.0-32.0); Chloride 101 mmol/L (98-107); Estimated GFR (African America >60 (>=60); Estimated GFR (Non-African Ame >60 (>=60); Globulin 4.1 g/dL; Glucose 89 mg/dL (74-106); Potassium 3.3 mmol/L (3.5-5.1); Sodium 136 mmol/L (136-145); Total Protein 7.6 g/dL (6.4-8.2)
[2024-02-03 23:55] LABS: Troponin I High Sensitivity <4.0 pg/mL (4.0-51.3)
--- NOTE | 2024-02-03 23:58 | XR_ITS ---
The [address] [address] Patient Name: ZHANE BRAGG MRN: [id number] date: 1990 Sex: F Assigned Patient Location: ER Current Patient Location: ER Accession/Order Number: [id number] Exam Date: 02/03/2024 23:59 Report Date: 02/04/2024 00:49 At the request of: BHARAT MARKER Procedure: XR chest 2V CXR- 2 VIEW HISTORY: Shortness of breath. Cough and congestion for 4 days COMPARISON: None. TECHNIQUE: 2 views of the chest are submitted for review. FINDINGS: The lungs are adequately expanded without effusion. Minimal prominence of interstitial lung markings and bibasilar lungs. The cardiac silhouette measures within normal. Pulmonary vascularity is unremarkable. Osseous structures are within normal limits for age. XR/XR chest 2V IMPRESSION: No plain film evidence for acute cardiopulmonary disease. Electronically authenticated by: JOSE ROYAL Date: 02/04/2024 00:49
[2024-02-04] VITALS (9 sets, daily range): BP systolic 105; BP diastolic 84; PULSE 88–125; O2SAT 93–97
== END 2024-02-04 01:20 | disposition home or self-care (01) ==
PROVIDERS: Emergency Provider Emergency Medicine
DX: J06.9 Acute upper respiratory infection, unspecified (principal); R05.9 Cough, unspecified; G54.0 Brachial plexus disorders; J45.909 Unspecified asthma, uncomplicated; F17.200 Nicotine dependence, unspecified, uncomplicated; Z20.822 Contact with and (suspected) exposure to COVID-19
CPT/HCPCS: 36415; 71046; 80053; 84484; 85025; 85378; 87811; 87880; 93005; 94640; 96374; 96375; 99285; J1885; J2405; J2919

== ENCOUNTER 2024-03-12 22:29 | Inpatient (IN) | payer SELFPAY ==
[2024-03-12 22:36] VITALS: BP 153/106; PULSE 118; TEMP 37.3; O2SAT 95; BMI 47.8
--- OUTSIDE RECORDS SUMMARY | 2024-03-12 22:38 | XMS_ITS | CCD ---
Author Organization [facility] Care Team Providers Care Card Assembler Name Role Phone VLADIMIR ESTRADA Unavailable Unavailab TERRY Costa Unavailable Unavailable PHYSICIAN, DEFAULT Unavailable Unavailable PHYSICIAN, DEFAULT Unavailable Unavailable Unavailable Primary Care Provider Unavailjerry e Radha Vang MD Unavailable Qasim Daley MD Primary Care Provider [facility] Primary Care Unava ilable DANIS EMERY Consulting Unavailable DANIS EMERY Admitting Unavailable DANIS EMERY Attending Unavailable Robert Viera Consulting Unavailable BLAISE, DR LOREDO Primary Care Unavailable BLAISE, DR LOREDO Admitting Unavailable LAKE, ZAIDA Consulting Unavailable BLAISE, DR LOREDO Attending Unavailable BLAISE, DR LOREDO Admitting Unavailable [facility], [facility] Care Unava ilable BLAISE, DR LOREDO Attending Unavailable BLAISE, DR LOREDO Admitting Unavailable [facility] Primary Care Unava ilable BLAISE, DR LOREDO Attending Unavailable BLAISE, DR LOREDO Consulting Unavailable BLAISE, DR LOREDO Primary Care Unavailable BLAISE, DR LOREDO Admitting Unavailable BLAISE, DR LOREDO Attending Unavailable BLAISE, DR LOREDO Consulting Unavailable BLAISE, DR LOREDO Admitting Unavailable [facility] Primary Care Unavailable BLAISE, DR LOREDO Attending Unavailable BERNADETTE NULL Attending Unavailable BERNADETTE NULL Consulting Unavailable BERNADETTE NULL Admitting Unavailable [facility] Primary Care Unava ilable Unavailable Primary Care Provider Unavailabl e NO FAMILY, PHYSICIAN Primary Care Provider Unava ilable MD Jus Santos Admit Provider MD Jus Santos Attending Provider Radha Vang MD Unavailable Qasim Daley MD Primary Care Provider RADHA VANG Attending Unavailable QASIM DALEY Primary Care Unavailable Bessy Medina Unavailable Jus Santos Admitting Unavailable NO FAMILY, PHYSICIAN Primary Care Unavailable Hardy Jones Attending Unavailab le RobertHardy pascual Admitting Unavailab le Hardy Jones Attending Unavailab le NO FAMILY, PHYSICIAN Primary Care Unavailable SERVICES, [facility] Unava ilable MORTEZA, KIAH Bob Attending Unavailab le NEVERAUSKABertrand, KIAH Bob Attending Unavailab le MORTEZA, KIAH Bob Referring Unavailab le SERVICES, [facility] Unava ilable SERVICES, [facility] Unava ilable YULISA TOLEDO Attending Unavailable PARIS, YULISA Westbrook Attending Unavailable PARIS, YULISA Westbrook Referring Unavailable SERVICES, [facility] Unava ilable SERVICES, [facility] Unava ilable SERVICES, [facility] Unava ilable KIAH PRO Attending Unavailab DELROY Longoria Admitting Unavailable SERVICES, [facility] Unava ilable PAREKH, ALISON Attending Unavailable SATISH ESCALANTE Admitting Unavailable PAREKH, ALISON Attending Unavailable PAREKH, ALISON Referring Unavailable SERVICES, [facility] Unava ilable SATISH ESCALANTE Attending Unavailable SATISH ESCALANTE Referring Unavailable SERVICES, [facility] Unava ilable Allergies Allergy Classification Reported Allergen(s) Allergy Type Date of Onset Reaction(s) Facility (20 sources) Latex; Translations: [LATEX] Drug Allergy 7 Rash [facility] (19 sources) levoFLOXacin; Translations: [LEVOFLOXACIN] Drug Allergy 0 Other: See Comments [facility] (20 sources) metroNIDAZOLE; Translations: [METRONIDAZOLE] Drug Allergy 5 Vomiting [facility] (2 sources) Latex Drug allergy (disorder) 7 [facility] (1 source) levoFLOXacin Drug Allergy [facility] (2 sources) metroNIDAZOLE Drug Allergy 5 [facility] (6 sources) Vancomycin; Translations: [VANCOMYCIN] Drug Allergy 2 Hives [facility] (4 sources) Adhesive Tape-Silicones; Translations: [ADHESIVE TAPE-SILICONES] Propensity to adverse reactions to drug 2 Other: See Comments [facility] (2 sources) raspberry extract; Translations: [raspberry] Drug Allergy 3 Unknown Reaction [facility] (2 sources) kiwi; Translations: [kiwi] Allergy to substance 3 Unknown Reaction [facility] (1 source) Latex Drug allergy (disorder) 4 [facility] (1 source) metroNIDAZOLE Drug Allergy 4 [facility] (1 source) Vancomycin Drug Allergy 4 [facility] Medications Current Medications Medication Drug Class(es) Dates Sig (Normalized) Sig (Original) [id number] 200 actuat albuterol 0.09 mg/actuat metered dose [...] solution (14 sources) Anticholinergic, beta2-Adrenergic Agonist Start: 2 End: 4 take 3 mL by inhalation every six [...] mg by intramuscular injection every month Aripiprazole (Abilivalentin Maintena) 400 mg suspension,extended rel syring Active [...] oral capsule (1 source) Cephalosporin Antibacterial Start: take 1 capsule by mouth every eight hours Cephalexin 500 MG 1 capsule Orally every 8 hrs for 5 days May, Active cholecalciferol 0.025 mg oral tablet (2 sources) Vitamin D Start: take 50 ug by mouth once daily Cholecalciferol (Vitamin D3) Active 50 MCG PO Daily 60 March 12, 2023 12:00am loperamide hydrochloride 2 mg oral capsule (6 sources) Opioid Agonist Start: End: take 1 capsule by mouth four times daily as needed loperamide (IMODIUM) 2 mg cap(s) TAKE 1 CAPSULE BY MOUTH 4 TIMES DAILY NEEDED 0 06/27/2021 09/14/2021 Discontinued (Discontinued by Patient) Comment on above: TAKE 1 CAPSULE BY MO UT 4 TIMES DAILY NEEDED ondansetron 4 mg [...] Comment on above: Take 1 tablet by [facility] every 6 hours as needed for pain [...] 03/18/2023 Discontinued take 2 tablets by mo [facility] every six hours as needed acetaminophen (TYLENOL) 325 mg tablet Ta ke 650 mg by mouth every 6 hours as needed. 0 Active Comment on above: Take 650 mg by mouth every 6 hours as needed. Take 2 tablets by mo [facility] every 6 hours. aspirin/acetaminophen/ caffeine (EXCEDRIN MIGRAINE [...] DAY IN THE MORNING FOR 15 DAYS [id number] 0.3 ml EPINEPHrine 1 mg/ml auto-injector (17 [...] Mometasone (1 source) Corticosteroid, beta2-Adrenergic Agonist Dulera Not-Taking/MA N hydrOXYzine pamoate 50 mg oral capsule (3 sources) Antihistamine Start: take 1 capsule by mouth every six hours as needed for anxiety hydrOXYzine pamoate (VISTARIL) 50 mg capsule TAKE 1 CAPSULE BY MOUTH EVERY 6 HOURS NEEDED FOR ANXIETY FOR 15 DAYS 0 03/12/2023 Active Comment on above: TAKE 1 CAPSULE BY MO UT EVERY 6 HOURS NEEDED FOR ANXIETY FOR [...] on above: Take 1/2 tablet by m outh every 12 hours. Xxgfjvew-Zq-Ztq-Fe- FA tab (9 sources) End: take 1 tablet by mouth once Btqnbsix-Nj-Opw-Fe-FA tab Take 1 tablet by mouth. 0 09/14/2021 Discontinued (Discontinued by Patient) take 1 tablet by mouth once Pren atal Wknemlzq-Nu-Fsq-Fe-FA tab Take 1 tablet by mouth. 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] Onset: 09-24-2021 Episodic Other [...] lower respiratory disease (1 source) Shortness of breath Onset: 02-13-2024 Episodic Other nervous system disorders (2 sources) [...] Translations: [Obesity, unspecified] Onset: 09-12-2021 09-12-2021 Chronic Residual codes; unclassified (1 source) Other specified [...] pain; Translations: [Abdominal pain] Onset: 06-24-2023 Episodic Acute bronchitis (2 sources) Acute bronchitis, unspecified; Translations: [ACUTE BRONCHITIS UNSPECIFIED] Onset: 12-29-2020 Episodic Nonspecific chest pain (3 sources) Chest pain, unspecified; Translations: [Chest pain] Onset: 09-06-2023 Episodic Other lower respiratory disease (1 source) Dyspnea Onset: 04-03-2017 Episodic Other lower respiratory disease (3 sources) Cough; Translations: [COUGH] Onset: 12-28-2020 Episodic Other lower respiratory disease (1 source) Shortness of breath; Translations: [Shortness of breath] Onset: 11-05-2023 Episodic Other lower respiratory disease (1 source) Cough Onset: 11-05-2023 Episodic Otitis media and related conditions (1 source) Otitis media, unspecified, right ear; Translations: [Otitis media, unspecified, right ear] Onset: 11-13-2023 Episodic Pneumonia (except that caused by tuberculosis or sexually transmitted disease) (1 source) Pneumonia, unspecified organism; Translations: [Pneumonia, unspecified organism] Onset: 11-05-2023 Episodic Results Test Name Value Interpretation Reference Range Facility CBC AND AUTO DIFFon 02-14-20 ABSOLUTE BASOPHIL 0.0 X10E9/L Normal 0.0-0.2 [facility] Comment on above: Performed By: #### C LEIGHTON CMP, 3043 #### [facility] ([id number]) [address] [place] [address] 05483 ABSOLUTE NEUTROPHIL 15.0 X10E9/L High 1.5-6.6 [facility] Comment on above: Performed By: #### C LEIGHTON CMP, 3043 #### [facility] ([id number]) [address] [place] [address] 93206 Basophils/100 WBC (Bld) 0.1 % Normal [facility] Comment on above: Performed By: #### C BCA CMP, 3039-07 #### [facility] ([id number]) [address] [place] [address] 82464 Eosinophils (Bld) [#/Vol] 0.0 10*3/uL Normal 0.0-0.4 [facility] Comment on above: Performed By: #### Patrizia MANZANARES CMP, 3039-07 #### [facility] ([id number]) [address] [place] [address] 42569 Eosinophils/100 WBC (Bld) 0.1 % Normal [facility] Comment on above: Performed By: #### Patrizia MANZANARES CMP, 3039-07 #### [facility] ([id number]) [address] [place] [address] 17054 Erythrocyte distribution width (RBC) [Ratio] 14.3 % Normal 11.5-15.0 [facility] Comment on above: Performed By: #### Patrizia MANZANARES CMP, 3039-07 #### [facility] ([id number]) [address] [place] [address] 41839 Hematocrit (Bld) [Volume fraction] 39.2 % Normal 35-47 [facility] Comment on above: Performed By: #### Patrizia MANZANARES CMP, 3039-07 #### [facility] ([id number]) [address] [place] [address] 65471 Hemoglobin (Bld) [Mass/Vol] 13.0 g/dL Normal 11.7-15.5 [facility] Comment on above: Performed By: #### Patrizia MANZANARES CMP, 3039-07 #### [facility] ([id number]) [address] [place] [address] 47445 Lymphocytes (Bld) [#/Vol] 1.1 10*3/uL Normal 1.0-3.5 [facility] Comment on above: Performed By: #### Patrizia MANZANARES CMP, 3039-07 #### [facility] ([id number]) [address] [place] [address] 61796 Lymphocytes/100 WBC (Bld) 6.9 % Normal [facility] Comment on above: Performed By: #### Patrizia MANZANARES CMP, 3039-3 #### [facility] ([id number]) [address] [place] [address] 96337 MCH (RBC) [Entitic mass] 28.5 pg Normal 27-34 [facility] Comment on above: Performed By: #### Patrizia MANZANARES CMP, 3039-07 #### [facility] ([id number]) [address] [place] [address] 97984 MCHC (RBC) [Mass/Vol] 33.2 g/dL Normal 32-36 [facility] Comment on above: Performed By: #### Patrizia MANZANARES CMP, 3 #### [facility] ([id number]) [address] [place] [address] 35965 MCV (RBC) [Entitic vol] 86 fL Normal 80-100 [facility] Comment on above: Performed By: #### Patrizia MANZANARES CMP, 3039-07 #### [facility] ([id number]) [address] [place] [address] 65067 Monocytes (Bld) [#/Vol] 0.1 10*3/uL Normal 0-0.9 [facility] Comment on above: Performed By: #### Patrizia MANZANARES CMP, 3039-07 #### [facility] ([id number]) [address] [place] [address] 52751 Monocytes/100 WBC (Bld) 0.7 % Normal [facility] Comment on above: Performed By: #### Patrizia MANZANARES CMP, 3039- #### [facility] ([id number]) [address] [place] [address] 38643 Neutrophils/100 WBC (Bld) 92.2 % Normal [facility] Comment on above: Performed By: #### Patrizia MANZANARES CMP, 0-3 #### [facility] ([id number]) [address] [place] [address] 70496 Platelet mean volume (Bld) [Entitic vol] 8.7 fL Normal 7-12 [facility] Comment on above: Performed By: #### Patrizia MANZANARES CMP, 3039-3 #### [facility] ([id number]) [address] [place] [address] 09340 Platelets (Bld) [#/Vol] 311 10*3/uL Normal 150-450 [facility] Comment on above: Performed By: #### Patrizia MANZANARES CMP, 3039-3 #### [facility] ([id number]) [address] [place] [address] 27975 RBC COUNT 4.56 X10E12/L Normal 3.80-5.20 [facility] Comment on above: Performed By: #### Patrizia MANZANARES CMP, 3039-3 #### [facility] ([id number]) [address] [place] [address] 20315 WBC (Bld) [#/Vol] 16.3 10*3/uL High 4.0-11.[address] [facility] Comment on above: Performed By: #### Patrizia MANZANARES CMP, 3039-3 #### [facility] ([id number]) [address] [place] [address] 87217 COMPREHENSIVE METABOLIC PANE Buck 02-14-2024 Albumin [Mass/Vol] 3.6 g/dL Normal 3.2-5.3 [facility] Comment on above: Performed By: #### Patrizia MANZANARES, CMP, 3039-3 #### [facility] ([id number]) [address] [place] [address] 19416 ALP [Catalytic activity/Vol] 84 U/L Normal 39-130 [facility] Comment on above: Performed By: #### C BCA, CMP, 3039-3 #### [facility] ([id number]) [address] [place] [address] 91761 ALT [Catalytic activity/Vol] 18 U/L Normal 0-31 [facility] Comment on above: Performed By: #### C BCA, CMP, 3039-3 #### [facility] ([id number]) [address] [place] [address] [place] [address] Anion gap [Moles/Vol] 8 mmol/L Normal 5-15 [facility] Comment on above: Performed By: #### C BCA, CMP, 3039-3 #### [facility] ([id number]) [address] [place] [address] 95199 AST [Catalytic activity/Vol] 19 U/L Normal 0-41 [facility] Comment on above: Performed By: #### C BCA, CMP, 3 #### [facility] ([id number]) [address] [place] [address] 41186 Bilirubin [Mass/Vol] 0.3 mg/dL Normal 0.3-1.2 [facility] Comment on above: Performed By: #### C BCA, CMP, 3039-3 #### [facility] ([id number]) [address] [place] [address] 14141 Calcium [Mass/Vol] 8.4 mg/dL Low 8.5-10.5 [facility] Comment on above: Performed By: #### C BCA, CMP, 3039-3 #### [facility] ([id number]) [address] [place] [address] 30027 Chloride [Moles/Vol] 108 mmol/L Normal 98-109 [facility] Comment on above: Performed By: #### C BCA, CMP, 3039-3 #### [facility] ([id number]) [address] [place] [address] 09681 CO2 [Moles/Vol] 20 mmol/L Low 22-32 [facility] Comment on above: Performed By: #### C NAIN MANZANARES, 3040-3 #### [facility] ([id number]) [address] [place] [address] 17512 Creatinine [Mass/Vol] 0.66 mg/dL Normal 0.40-1.00 [facility] Comment on above: Result Comment: METH OD TRACEABLE TO IDMS STANDARD Performed By: #### C NAIN MANZANARES, 3039-3 #### [facility] ([id number]) [address] [place] [address] 11570 eGFR (CKD-EPI) NON-RACE DEPENDENT >90 Normal >59 [facility] Comment on above: Result Comment: Reported eGFR is based on the CKD-EPI 2020 equation that does not use a race coefficient. Performed By: #### C NAIN MANZANARES, 3039-3 #### [facility] ([id number]) [address] [place] [address] 58064 Glucose [Mass/Vol] 187 mg/dL High 65-99 [facility] Comment on above: Performed By: #### Patrizia MANZANARES CMP, 3040-3 #### [facility] ([id number]) [address] [place] [address] 52378 Potassium [Moles/Vol] 4.0 mmol/L Normal 3.5-5.0 [facility] Comment on above: Performed By: #### C NAIN MANZANARES, 0-3 #### [facility] ([id number]) [address] [place] [address] 74729 Protein [Mass/Vol] 7.2 g/dL Normal 6.0-8.0 [facility] Comment on above: Performed By: #### Patrizia MANZANARES CMP, 3040-3 #### [facility] ([id number]) [address] [place] [address] 81081 Sodium [Moles/Vol] 136 mmol/L Normal 134-146 [facility] Comment on above: Performed By: #### C NAIN MANZANARES, 3040-3 #### [facility] ([id number]) [address] [place] [address] 05902 Urea nitrogen [Mass/Vol] 13 mg/dL Normal 5-23 [facility] Comment on above: Performed By: #### C NAIN MANZANAERS, 3040-3 #### [facility] ([id number]) [address] [place] [address] 19691 MAGNESIUMon 02-14-2024 Magnesium [Mass/Vol] 2.1 mg/dL Normal 1.8-2.6 [facility] Comment on above: Performed By: #### C NAIN MANZANARES, 3040-3 #### [facility] ([id number]) [address] [place] [address] 42206 Procalcitonin IA [Mass/Vol]o n 02-14-2024 PROCALCITONIN <0.05 Normal <0.05 [facility] Comment on above: Result Comment: NOTE <0.50 ng/mL - Low risk of severe sepsis and/or septic shock. <2.00 ng/mL - Recommend retesting within 6-24 hours. >2.00 ng/mL - High risk of sepsis and/or septic shock. Performed By: #### C NAIN MANZANARES, 3040-3 #### [facility] ([id number]) [address] [place] [address] 20508 CBC AND AUTO DIFFon 02-13-20 24 ABSOLUTE BASOPHIL 0.1 X10E9/L Normal 0.0-0.2 [facility] Comment on above: Performed By: #### 2 106-3 #### [facility] ([id number]) [address] [place] [address] 53707 ABSOLUTE NEUTROPHIL 8.3 X10E9/L High 1.5-6.6 [facility] Comment on above: Performed By: #### 2 106-3 #### [facility] ([id number]) [address] [place] [address] 06756 Basophils/100 WBC (Bld) 0.7 % Normal [facility] Comment on above: Performed By: #### 2 106-3 #### [facility] ([id number]) [address] [place] [address] 79579 Eosinophils (Bld) [#/Vol] 1.0 10*3/uL High 0.0-0.4 [facility] Comment on above: Performed By: #### 2 106-3 #### [facility] ([id number]) [address] [place] [address] 29662 Eosinophils/100 WBC (Bld) 8.0 % Normal [facility] Comment on above: Performed By: #### 2 106-3 #### [facility] ([id number]) [address] [place] [address] 75831 Erythrocyte distribution width (RBC) [Ratio] 14.3 % Normal 11.5-15.0 [facility] Comment on above: Performed By: #### 2 106-3 #### [facility] ([id number]) [address] [place] [address] 25895 Hematocrit (Bld) [Volume fraction] 37.9 % Normal 35-47 [facility] Comment on above: Performed By: #### 2 106-3 #### [facility] ([id number]) [address] [place] [address] 31914 Hemoglobin (Bld) [Mass/Vol] 12.7 g/dL Normal 11.7-15.5 [facility] Comment on above: Performed By: #### 2 106-3 #### [facility] ([id number]) [address] [place] [address] 49454 Lymphocytes (Bld) [#/Vol] 2.9 10*3/uL Normal 1.0-3.5 [facility] Comment on above: Performed By: #### 2 106-3 #### [facility] ([id number]) [address] [place] [address] 32904 Lymphocytes/100 WBC (Bld) 22.7 % Normal [facility] Comment on above: Performed By: #### 2 106-3 #### [facility] ([id number]) [address] [place] [address] 28536 MCH (RBC) [Entitic mass] 28.3 pg Normal 27-34 [facility] Comment on above: Performed By: #### 2 106-3 #### [facility] ([id number]) [address] [place] [address] 28282 MCHC (RBC) [Mass/Vol] 33.5 g/dL Normal 32-36 [facility] Comment on above: Performed By: #### 2 106-3 #### [facility] ([id number]) [address] [place] [address] 45777 MCV (RBC) [Entitic vol] 85 fL Normal 80-100 [facility] Comment on above: Performed By: #### 2 106-3 #### [facility] ([id number]) [address] [place] [address] 95161 Monocytes (Bld) [#/Vol] 0.6 10*3/uL Normal 0-0.9 [facility] Comment on above: Performed By: #### 2 106-3 #### [facility] ([id number]) [address] [place] [address] 17541 Monocytes/100 WBC (Bld) 4.5 % Normal [facility] Comment on above: Performed By: #### 2 106-3 #### [facility] ([id number]) [address] [place] [address] 97451 Neutrophils/100 WBC (Bld) 64.1 % Normal [facility] Comment on above: Performed By: #### 2 106-3 #### [facility] ([id number]) [address] [place] [address] 16938 Platelet mean volume (Bld) [Entitic vol] 8.0 fL Normal 7-12 [facility] Comment on above: Performed By: #### 2 106-3 #### [facility] ([id number]) [address] [place] [address] 48934 Platelets (Bld) [#/Vol] 307 10*3/uL Normal 150-450 [facility] Comment on above: Performed By: #### 2 106-3 #### [facility] ([id number]) [address] [place] [address] 40362 RBC COUNT 4.48 X10E12/L Normal 3.80-5.20 [facility] Comment on above: Performed By: #### 2 106-3 #### [facility] ([id number]) [address] [place] [address] 86361 WBC (Bld) [#/Vol] 12.9 10*3/uL High 4.0-11.[address] [facility] Comment on above: Performed By: #### 2 106-3 #### [facility] ([id number]) [address] [place] [address] 83925 COMPREHENSIVE METABOLIC PANE Buck 02-13-2024 Albumin [Mass/Vol] 3.5 g/dL Normal 3.2-5.3 [facility] Comment on above: Performed By: #### 2 106-3 #### [facility] ([id number]) [address] [place] [address] 83450 ALP [Catalytic activity/Vol] 79 U/L Normal 39-130 [facility] Comment on above: Performed By: #### 2 106-3 #### [facility] ([id number]) [address] [place] [address] 29490 ALT [Catalytic activity/Vol] 20 U/L Normal 0-31 [facility] Comment on above: Performed By: #### 2 106-3 #### [facility] ([id number]) [address] [place] [address] 34258 Anion gap [Moles/Vol] 8 mmol/L Normal 5-15 [facility] Comment on above: Performed By: #### 2 106-3 #### [facility] ([id number]) [address] [place] [address] 95151 AST [Catalytic activity/Vol] 19 U/L Normal 0-41 [facility] Comment on above: Performed By: #### 2 106-3 #### [facility] ([id number]) [address] [place] [address] 87198 Bilirubin [Mass/Vol] 0.6 mg/dL Normal 0.3-1.2 [facility] Comment on above: Performed By: #### 2 106-3 #### [facility] ([id number]) [address] [place] [address] 36001 Calcium [Mass/Vol] 7.9 mg/dL Low 8.5-10.5 [facility] Comment on above: Performed By: #### 2 106-3 #### [facility] ([id number]) [address] [place] [address] 21228 Chloride [Moles/Vol] 108 mmol/L Normal 98-109 [facility] Comment on above: Performed By: #### 2 106-3 #### [facility] ([id number]) [address] [place] [address] 48533 CO2 [Moles/Vol] 21 mmol/L Low 22-32 [facility] Comment on above: Performed By: #### 2 106-3 #### [facility] ([id number]) [address] [place] [address] 04818 Creatinine [Mass/Vol] 0.53 mg/dL Normal 0.40-1.00 [facility] Comment on above: Result Comment: METH OD TRACEABLE TO IDMS STANDARD Performed By: #### 2 106-3 #### [facility] ([id number]) [address] [place] [address] 36251 eGFR (CKD-EPI) NON-RACE DEPENDENT >90 Normal >59 [facility] Comment on above: Result Comment: Reported eGFR is based on the CKD-EPI 2020 equation that does not use a race coefficient. Performed By: #### 2 106-3 #### [facility] ([id number]) [address] [place] [address] 86202 Glucose [Mass/Vol] 97 mg/dL Normal 65-99 [facility] Comment on above: Performed By: #### 2 106-3 #### [facility] ([id number]) [address] [place] [address] 49586 Potassium [Moles/Vol] 3.4 mmol/L Low 3.5-5.0 [facility] Comment on above: Performed By: #### 2 106-3 #### [facility] ([id number]) [address] [place] [address] 98858 Protein [Mass/Vol] 6.9 g/dL Normal 6.0-8.0 [facility] Comment on above: Performed By: #### 2 106-3 #### [facility] ([id number]) [address] [place] [address] 48210 Sodium [Moles/Vol] 137 mmol/L Normal 134-146 [facility] Comment on above: Performed By: #### 2 106-3 #### [facility] ([id number]) [address] [place] [address] Urea nitrogen [Mass/Vol] 13 mg/dL Normal 5-23 [facility] Comment on above: Performed By: #### 2 106-3 #### [facility] ([id number]) [address] [place] [address] CRP [Mass/Vol]on 02-13-2024 C REACTIVE PROTEIN 3.4 mg/dL High 0.000-0.[address] [facility] Comment on above: Performed By: #### C BCA, 09901-0, CMP, 1988-5, 31920-7, 71168- 4, 98687-4 ####[facility] ([id number])[address] [place] [address] CTA CHESTon 02-13-[address] CTA CHEST Clinical history:Chest pain, shortness of breath: Leg symptoms Technique: Multidetector helical CTA was performed of the chest. Coronal, sagittal, and 3-D rendered images were performed and reviewed. The patient was given 100 cc of Omni 350 for intravenous contrast. Automated exposure control was utilized. Findings: No large saddle embolus nor proximal pulmonary emboli identified. There is reduced contrast opacification and segmental pulmonary arteries which decreases sensitivity exam. Small emboli cannot be identified. No pericardial nor pleural effusion. 4.6 mm nodule axial image 74 series 603 Stable tiny noncalcified nodule likely granuloma right upper lobe axial image 92 series 3 Thoracic aorta is normal in size. No perinephric fluid. No mediastinal nor hilar adenopathy. No axillary nor supraclavicular adenopathy. Some minimal basilar atelectasis. Otherwise lungs clear. Impression: * No definite pulmonary embolus. * Subtle indeterminate nodular opacity as noted above pending clinical risk factors consider follow-up CT in one year. All CT scans at this facility use dose modulation, iterative reconstruction, and/or weight based dosing when appropriate to reduce radiation dose to as low as reasonably achievable. Finalized by Maynor Duong MD on 02/13/2024 5:03 PM Normal [facility] Fibrin D-dimer DDU (PPP) [Ma ss/Vol]on 02-13-2024 D DIMER 257 ng/mL DDU High <255 [facility] Comment on above: Result Comment: Results >=255ng/mL DDU: Results may be indicative of the presence of VTE. The use of the Wells score and further diagnostic tests should be considered. Elevated D-Dimer levels can also be associated with DIC, neoplasm, , trauma and liver disease. Elevated levels of rheumatoid factor may lead to an overestimation of the D-Dimer level. Performed By: #### 2 106-3 #### [facility] ([id number]) [address] [place] [address] 85769 HCG ( test) IA.pacoi d Ql (S)on 02-13-2024 SERUM Negative Normal NEG [facility] Comment on above: Performed By: #### C LEIGHTON, 18606-2, CMP, 1987-09, 30959-9, 31618- 4, 54604-2 ####[facility] ([id number])[address] [place] [address] 80362 Lactate (P debra) [Moles/Vol]o n 02-13-2024 LACTATE W/REFLEX 0.7 mmol/L Normal 0.4-2.0 [facility] Comment on above: Result Comment: Result did not trigger repeat Lactate, re-order if needed. Performed By: #### 3 2133-1 ####[facility] ([id number])[address] [place] [address] 02779 Natriuretic peptide B [Mass/ Vol]on 02-13-2024 Natriuretic peptide B (Bld) [Mass/Vol] 7 pg/mL Normal <100.0 [facility] Comment on above: Performed By: #### C BCA, 61611-6, CMP, 1987-09, 83504-9, 02454- 4, 60042-3 ####[facility] ([id number])[address] [place] [address] 87034 SARS/FLU A+B/RSV by NAAT/Mol ecularon 02-13-2024 SARS/FLU A+B/RSV by NAAT/Molecular FLU A PCR Negative (qualifier value) FLU B PCR Negative (qualifier value) RSV by PCR Negative (qualifier value) SARS CoV 2 Not detected (qualifier value) NOTE The Xpert Xpress SARS-CoV-2/Flu/RSV Plus test is a rapid, multiplexed real-time RT-PCR test intended for the simultaneous qualitative detection and differentiation of SARS-CoV-2, influenza A, influenza B and respiratory syncytial virus (RSV) viral RNA from individuals suspected of respiratory viral infection consistent with COVID-19 by their healthcare provider. This test has not been validated in asymptomatic patients. The Xpert Xpress SARS-CoV-2 test is intended for use by qualified and trained operators who are performing tests using either [employer] or [employer] systems and is limited to laboratories that meet the CLIA requirements to perform high and moderate complexity tests. The Xpert Xpress SARS-CoV-2/Flu/RSV Plus is only for use under the Food and Drug Administration's Emergency Use Authorization. Results are for the simultaneous detection and differentiation of SARS-CoV-2, influenza A, influenza B and RSV nucleic acids in clinical specimens. SARS-CoV-2, influenza A, influenza B and RSV RNA identified by this test are generally detectable in upper respiratory samples during the acute phase of infection. Positive results are indicative of the presence of the identified virus, but do not rule out bacterial infection or co-infection with other pathogens not detected by this test. Clinical correlation with patient history and other diagnostic information is necessary to determine patient infection status. The agent detected may not be the definite cause of disease. Negative results do not preclude SARS-CoV-2, influenza A, influenza B and RSV infection and should not be used as the sole basis for treatment or other patient management decisions. Negative results must be combined with clinical observations, patient history and epidemiological information. An Invalid result may occur with specimen-associated inhibition unable to be resolved with specimen repeat. Fact Sheet for Healthcare Providers: https://www.fda.gov/media/1 26632/download Fact Sheet for Patients: https://www.fda.gov/media/1 65616/download Normal [facility] Comment on above: Performed By: #### C OVFLR ####[facility] ([id number])[address] [place] [address], [place] [address] Troponin I.cardiac High sens itivity method [Mass/Vol]on 02-13-2024 1 HOUR TROP I, HIGH SENSITIVITY <2 Normal <16 [facility] Comment on above: Performed By: #### 8 9579-7 ####[facility] ([id number])[address] [place] [address], [place] [address] TROPONIN I, HIGH SENSITIVITY <2 Normal <16 [facility] Comment on above: Performed By: #### C BCA, 08319-5, CMP, 1988-5, 59150-5, 16836- 4, 32606-6 ####[facility] ([id number])[address] [place] [address], [place] [address] URN MACROSCOPIC NURon 2023 BILIRUBIN ISMAEL Negative Normal NEG [facility] Comment on above: Performed By: #### N UM ####[facility] ([id number])[address] [place] [address], [place] [address] BLOOD/HGB ISMAEL Trace Abnormal NEG [facility] Comment on above: Performed By: #### N UM ####[facility] ([id number])[address] [place] [address], [place] [address] GLUCOSE ISMAEL Negative Normal NEG [facility] Comment on above: Performed By: #### N UM ####[facility] ([id number])[address] [place] [address], [place] [address] KETONES ISMAEL Negative Normal NEG [facility] Comment on above: Performed By: #### N UM ####[facility] ([id number])[address] [place] [address], [place] [address] LEUKOCYTE ESTERASE ISMAEL Negative Normal NEG [facility] Comment on above: Performed By: #### N UM ####[facility] ([id number])[address] [place] [address], [place] [address] NITRITE ISMAEL Negative Normal NEG [facility] Comment on above: Performed By: #### N UM ####[facility] ([id number])[address] [place] [address] 75677 PH ISMAEL 5.5 Normal 5.0-8.5 [facility] Comment on above: Performed By: #### N UM ####[facility] ([id number])[address] [place] [address] 62029 PROTEIN ISMAEL Negative Normal NEG [facility] Comment on above: Performed By: #### N UM ####[facility] ([id number])[address] [place] [address] 42218 SPECIFIC GRAVITY ISMAEL <=1.005 Normal 1.003-1.035 [facility] Comment on above: Performed By: #### N UM ####[facility] ([id number])[address] [place] [address] 10490 UROBILINOGEN ISMAEL 0.2 eu/dL Normal <1.1 [facility] Comment on above: Performed By: #### N UM ####[facility] ([id number])[address] [place] [address] 63116 XR CHEST 2 VWSon 02-13-2024 XR CHEST 2 VWS XR CHEST 2 VWS HISTORY: A 34-year-old female with the history of the shortness of breath. Recently diagnosed Covid infection. EXAM/TECHNIQUE: CHEST: PA and lateral views COMPARISON: Comparison is made with the chest radiographs of the 2023. FINDINGS: There is minimal atelectasis at the left lung base. Lungs are otherwise clear. Costophrenic angles are clear. There is no evidence of pneumothorax. The cardiac silhouette is within normal limits. The trachea is in midline. The mediastinum is otherwise unremarkable. The hemidiaphragms are normal in position. The bony rib cage is intact. IMPRESSION: * Minimal left lower lobe atelectasis. * No evidence of pulmonary infiltrate or acute pulmonary pathology. Finalized by Miguel Thompson MD on 02/13/2024 3:53 PM Normal [facility] XR CHEST 2 VWSon 11-05-2023 XR CHEST [...] Silveira MD on 11/05/2023 8:09 AM Normal [facility] ISMAEL FECAL OCCULT BLDon 09-06 Hemoglobin.gastrointe stinal Ql (Stl) Negative Normal NEG [facility] Comment on above: Performed By: #### 2 106-3 #### [facility] ([id number]) [address] [place] [address] 20558 CBC AND AUTO DIFFon 09-06-19 24 ABSOLUTE BASOPHIL 0.1 X10E9/L Normal 0.0-0.2 [facility] Comment on above: Performed By: #### 1 988-5, 17234-8, CMP, 84948-3, CBCA #### [facility] ([id number]) [address] [place] [address] 25172 ABSOLUTE NEUTROPHIL 8.8 X10E9/L High 1.5-6.6 [facility] Comment on above: Performed By: #### 1 988-5, 74337-5, CMP, 42842-7, CBCA #### [facility] ([id number]) [address] [place] [address], [place] [address] Basophils/100 WBC (Bld) 0.6 % Normal [facility] Comment on above: Performed By: #### 1 988-5, 16535-7, CMP, 31892-0, CBCA #### [facility] ([id number]) [address] [place] [address] 64934 Eosinophils (Bld) [#/Vol] 0.7 10*3/uL High 0.0-0.4 [facility] Comment on above: Performed By: #### 1 988-5, 40281-5, CMP, 73005-5, CBCA #### [facility] ([id number]) [address] [place] [address] 34603 Eosinophils/100 WBC (Bld) 4.9 % Normal [facility] Comment on above: Performed By: #### 1 988-5, 13188-6, CMP, 33290-2, CBCA #### [facility] ([id number]) [address] [place] [address] 63763 Erythrocyte distribution width (RBC) [Ratio] 13.0 % Normal 11.5-15.0 [facility] Comment on above: Performed By: #### 1 988-5, 56338-0, CMP, 56879-8, CBCA #### [facility] ([id number]) [address] [place] [address] 12663 Hematocrit (Bld) [Volume fraction] 39.0 % Normal 35-47 [facility] Comment on above: Performed By: #### 1 988-5, 36932-9, CMP, 43927-8, CBCA #### [facility] ([id number]) [address] [place] [address] 83301 Hemoglobin (Bld) [Mass/Vol] 13.2 g/dL Normal 11.7-15.5 [facility] Comment on above: Performed By: #### 1 988-5, 62585-4, CMP, 83842-9, CBCA #### [facility] ([id number]) [address] [place] [address] 90398 Lymphocytes (Bld) [#/Vol] 3.4 10*3/uL Normal 1.0-3.5 [facility] Comment on above: Performed By: #### 1 988-5, 29346-8, CMP, 14648-6, CBCA #### [facility] ([id number]) [address] [place] [address] 20229 Lymphocytes/100 WBC (Bld) 24.4 % Normal [facility] Comment on above: Performed By: #### 1 988-5, 98118-7, CMP, 04572-3, CBCA #### [facility] ([id number]) [address] [place] [address] 33287 MCH (RBC) [Entitic mass] 28.9 pg Normal 27-34 [facility] Comment on above: Performed By: #### 1 988-5, 06441-3, CMP, 22276-8, CBCA #### [facility] ([id number]) [address] [place] [address] 71561 MCHC (RBC) [Mass/Vol] 33.7 g/dL Normal 32-36 [facility] Comment on above: Performed By: #### 1 988-5, 91268-8, CMP, 62930-8, CBCA #### [facility] ([id number]) [address] [place] [address] 30665 MCV (RBC) [Entitic vol] 86 fL Normal 80-100 [facility] Comment on above: Performed By: #### 1 988-5, 52395-9, CMP, 89890-2, CBCA #### [facility] ([id number]) [address] [place] [address] 50978 Monocytes (Bld) [#/Vol] 0.9 10*3/uL Normal 0-0.9 [facility] Comment on above: Performed By: #### 1 988-5, 25160-7, CMP, 32739-5, CBCA #### [facility] ([id number]) [address] [place] [address] 72712 Monocytes/100 WBC (Bld) 6.3 % Normal [facility] Comment on above: Performed By: #### 1 988-5, 99676-7, CMP, 69685-5, CBCA #### [facility] ([id number]) [address] [place] [address] 52642 Neutrophils/100 WBC (Bld) 63.8 % Normal [facility] Comment on above: Performed By: #### 1 988-5, 50811-8, CMP, 63655-2, CBCA #### [facility] ([id number]) [address] [place] [address] 27961 Platelet mean volume (Bld) [Entitic vol] 8.6 fL Normal 7-12 [facility] Comment on above: Performed By: #### 1 988-5, 10587-1, CMP, 52247-4, CBCA #### [facility] ([id number]) [address] [place] [address] 03795 Platelets (Bld) [#/Vol] 332 10*3/uL Normal 150-450 [facility] Comment on above: Performed By: #### 1 988-5, 26038-9, CMP, 61230-1, CBCA #### [facility] ([id number]) [address] [place] [address] 37061 RBC COUNT 4.56 X10E12/L Normal 3.80-5.20 [facility] Comment on above: Performed By: #### 1 988-5, 82913-7, CMP, 39908-2, CBCA #### [facility] ([id number]) [address] [place] [address] 78058 WBC (Bld) [#/Vol] 13.8 10*3/uL High 4.0-11.[address] [facility] Comment on above: Performed By: #### 1 988-5, 44725-5, CMP, 05161-0, CBCA #### [facility] ([id number]) [address] [place] [address] 46991 COMPREHENSIVE METABOLIC PANE Buck 09-06-2023 Albumin [Mass/Vol] 3.7 g/dL Normal 3.2-5.3 [facility] Comment on above: Performed By: #### 1 988-5, 27406-7, CMP, 40214-3, CBCA #### [facility] ([id number]) [address] [place] [address] 33682 ALP [Catalytic activity/Vol] 99 U/L Normal 39-130 [facility] Comment on above: Performed By: #### 1 988-5, 97083-7, CMP, 49584-6, CBCA #### [facility] ([id number]) [address] [place] [address] 50457 ALT [Catalytic activity/Vol] 17 U/L Normal 0-31 [facility] Comment on above: Performed By: #### 1 988-5, 72923-4, CMP, 97168-5, CBCA #### [facility] ([id number]) [address] [place] [address] 07482 Anion gap [Moles/Vol] 9 mmol/L Normal 5-15 [facility] Comment on above: Performed By: #### 1 988-5, 64943-5, CMP, 93743-6, CBCA #### [facility] ([id number]) [address] [place] [address] 41732 AST [Catalytic activity/Vol] 18 U/L Normal 0-41 [facility] Comment on above: Performed By: #### 1 988-5, 97678-3, CMP, 88468-4, CBCA #### [facility] ([id number]) [address] [place] [address] 68180 Bilirubin [Mass/Vol] 0.2 mg/dL Low 0.3-1.2 [facility] Comment on above: Performed By: #### 1 988-5, 37938-1, CMP, 85394-8, CBCA #### [facility] ([id number]) [address] [place] [address] 51825 Calcium [Mass/Vol] 8.7 mg/dL Normal 8.5-10.5 [facility] Comment on above: Performed By: #### 1 988-5, 81252-3, CMP, 44812-7, CBCA #### [facility] ([id number]) [address] [place] [address] 27794 Chloride [Moles/Vol] 102 mmol/L Normal 98-109 [facility] Comment on above: Performed By: #### 1 988-5, 62547-6, CMP, 44689-8, CBCA #### [facility] ([id number]) [address] [place] [address] 92191 CO2 [Moles/Vol] 26 mmol/L Normal 22-32 [facility] Comment on above: Performed By: #### 1 988-5, 38981-1, CMP, 55210-0, CBCA #### [facility] ([id number]) [address] [place] [address] 00018 Creatinine [Mass/Vol] 0.90 mg/dL Normal 0.40-1.00 [facility] Comment on above: Result Comment: METH OD TRACEABLE TO IDMS STANDARD Performed By: #### 1 988-5, 52167-2, NAIN, 78924-6, CBCA #### [facility] ([id number]) [address] [place] [address] 04740 GFR/1.73 sq M.predicted among non-blacks MDRD (S/P/Bld) [Vol rate/Area] 88 mL/min/{1.73_m2} Normal >59 [facility] Comment on above: Result Comment: Reported eGFR is based on the CKD-EPI 1 equation that does not use a race coefficient. Performed By: #### 1 988-5, 55268-5, NAIN, 68470-9, CBCA #### [facility] ([id number]) [address] [place] [address] 51758 Glucose [Mass/Vol] 79 mg/dL Normal 65-99 [facility] Comment on above: Performed By: #### 1 988-5, 77335-4, NAIN, 14626-9, CBCA #### [facility] ([id number]) [address] [place] [address] 42312 Potassium [Moles/Vol] 3.8 mmol/L Normal 3.5-5.0 [facility] Comment on above: Performed By: #### 1 988-5, 33331-4, NAIN, 33699-1, CBCA #### [facility] ([id number]) [address] [place] [address] 24861 Protein [Mass/Vol] 7.4 g/dL Normal 6.0-8.0 [facility] Comment on above: Performed By: #### 1 988-5, 94395-5, NAIN, 21837-8, CBCA #### [facility] ([id number]) [address] [place] [address] 97385 Sodium [Moles/Vol] 137 mmol/L Normal 134-146 [facility] Comment on above: Performed By: #### 1 988-5, 36399-0, [facility], 65978-2, CBCA #### [facility] ([id number]) [address] [place] [address] 05003 Urea nitrogen [Mass/Vol] 13 mg/dL Normal 5-23 [facility] Comment on above: Performed By: #### 1 988-5, 62724-8, [facility], 34729-5, CBCA #### [facility] ([id number]) [address] [place] [address] 03989 CRP [Mass/Vol]on 09-06-2023 C REACTIVE PROTEIN 2.6 mg/dL High 0.000-0.[address] [facility] Comment on above: Performed By: #### 2 106-3 #### [facility] ([id number]) [address] [place] [address] 28902 Fibrin D-dimer DDU (PPP) [Ma ss/Vol]on 09-06-2023 D DIMER 248 ng/mL DDU Normal <255 [facility] Comment on above: Result Comment: Results <255 ng/mL DDU: The presence of a VTE can safely be excluded with a negative D-Dimer result and Wells score. A negative result doesn't exclude the possibility of DIC. The test be repeated along with other diagnostic tests if the patient's symptoms persist or worsen. [email or web address] Performed By: #### 1 988-5, 00083-4, [facility], 06673-8, CBCA #### [facility] ([id number]) [address] [place] [address] 69353 LIPASEon 09-06-2023 Lipase [Catalytic activity/Vol] 36 U/L Normal 17-40 [facility] Comment on above: Performed By: #### 2 106-3 #### [facility] ([id number]) [address] [place] [address] Troponin I.cardiac High sens itivity method [Mass/Vol]on 09-06-2023 1 HOUR TROP I, HIGH SENSITIVITY <2 Normal <16 [facility] Comment on above: Performed By: #### 2 106-3 #### [facility] ([id number]) [address] [place] [address] TROPONIN I, HIGH SENSITIVITY <2 Normal <16 [facility] Comment on above: Performed By: #### 2 106-3 #### [facility] ([id number]) [address] [place] [address] 35277 XR CHEST 2 VWSon 09-06-2023 XR CHEST 2 VWS XR CHEST 2 VWS History: Chest pain Exam/Technique: PA and lateral chest Comparison: 04/23/2023 Findings: There is no evidence of active pulmonary or pleural disease. Cardiac and mediastinal contours are within normal limits. IMPRESSION: No active pulmonary disease. Finalized by Guero Rosa MD on 09/06/2023 9:56 PM Normal [facility] US PELVIC WITH TRANSVAGINAL AND DUPLEXon 06-25-2023 [...] Vance MD on 06/25/2023 8:21 AM Normal [facility] CBC AND AUTO DIFFon 06-24-19 24 ABSOLUTE BASOPHIL 0.1 X10E9/L Normal 0.0-0.2 [facility] Comment on above: Performed By: #### C LEIGHTON [facility], 3040-3 #### [facility] ([id number]) [address] [place] [address] 46752 ABSOLUTE NEUTROPHIL 8.1 X10E9/L High 1.5-6.6 [facility] Comment on above: Performed By: #### C LEIGHTON [facility], 3040-3 #### [facility] ([id number]) [address] [place] [address] 48310 Basophils/100 WBC (Bld) 0.9 % Normal [facility] Comment on above: Performed By: #### C LEIGHTON [facility], 3040-3 #### [facility] ([id number]) [address] [place] [address] 28535 Eosinophils (Bld) [#/Vol] 0.7 10*3/uL High 0.0-0.4 [facility] Comment on above: Performed By: #### Patrizia MANZANARES CMP, 3039-07 #### [facility] ([id number]) [address] [place] [address] 25146 Eosinophils/100 WBC (Bld) 5.3 % Normal [facility] Comment on above: Performed By: #### Patrizia MANZANARES [facility], 3039-07 #### [facility] ([id number]) [address] [place] [address] 79575 Erythrocyte distribution width (RBC) [Ratio] 13.9 % Normal 11.5-15.0 [facility] Comment on above: Performed By: #### Patrizia MANZANARES CMP, 3039-07 #### [facility] ([id number]) [address] [place] [address] 22334 Hematocrit (Bld) [Volume fraction] 40.3 % Normal 35-47 [facility] Comment on above: Performed By: #### Patrizia MANZANARES [facility], 3039-07 #### [facility] ([id number]) [address] [place] [address] 78789 Hemoglobin (Bld) [Mass/Vol] 13.7 g/dL Normal 11.7-15.5 [facility] Comment on above: Performed By: #### Patrizia MANZANARES CMP, 3039-07 #### [facility] ([id number]) [address] [place] [address] 18679 Lymphocytes (Bld) [#/Vol] 3.8 10*3/uL High 1.0-3.5 [facility] Comment on above: Performed By: #### Patrizia MANZANARES CMP, 3039-07 #### [facility] ([id number]) [address] [place] [address] 78748 Lymphocytes/100 WBC (Bld) 28.5 % Normal [facility] Comment on above: Performed By: #### Patrizia MANZANARES CMP, 3039-07 #### [facility] ([id number]) [address] [place] [address] 46928 MCH (RBC) [Entitic mass] 29.4 pg Normal 27-34 [facility] Comment on above: Performed By: #### Patrizia MANZANARES CMP, 3039- #### [facility] ([id number]) [address] [place] [address] 01609 MCHC (RBC) [Mass/Vol] 34.0 g/dL Normal 32-36 [facility] Comment on above: Performed By: #### Patrizia MANZANARES CMP, 3039-07 #### [facility] ([id number]) [address] [place] [address] 41861 MCV (RBC) [Entitic vol] 86 fL Normal 80-100 [facility] Comment on above: Performed By: #### Patrizia MANZANARES CMP, 3039-07 #### [facility] ([id number]) [address] [place] [address] 88915 Monocytes (Bld) [#/Vol] 0.7 10*3/uL Normal 0-0.9 [facility] Comment on above: Performed By: #### Patrizia MANZANARES CMP, 3039-07 #### [facility] ([id number]) [address] [place] [address] 30372 Monocytes/100 WBC (Bld) 5.1 % Normal [facility] Comment on above: Performed By: #### Patrizia MANZANARES, CMP, 3039-07 #### [facility] ([id number]) [address] [place] [address] 27191 Neutrophils/100 WBC (Bld) 60.2 % Normal [facility] Comment on above: Performed By: #### Patrizia MANZANARES, CMP, 3 #### [facility] ([id number]) [address] [place] [address] 10204 Platelet mean volume (Bld) [Entitic vol] 8.2 fL Normal 7-12 [facility] Comment on above: Performed By: #### Patrizia MANZANARES CMP, 3040-3 #### [facility] ([id number]) [address] [place] [address] 49748 Platelets (Bld) [#/Vol] 348 10*3/uL Normal 150-450 [facility] Comment on above: Performed By: #### Patrizia MANZANARES CMP, 3 #### [facility] ([id number]) [address] [place] [address] 73305 RBC COUNT 4.67 X10E12/L Normal 3.80-5.20 [facility] Comment on above: Performed By: #### Patrizia MANZANARES CMP, 3 #### [facility] ([id number]) [address] [place] [address] 19805 WBC (Bld) [#/Vol] 13.4 10*3/uL High 4.0-11.[address] [facility] Comment on above: Performed By: #### Patrizia MANZANARES CMP, 3039-3 #### [facility] ([id number]) [address] [place] [address] 25048 COMPREHENSIVE METABOLIC PANE Buck 06-24-2023 Albumin [Mass/Vol] 4.2 g/dL Normal 3.2-5.3 [facility] Comment on above: Performed By: #### Patrizia MANZANARES, CMP, 0-3 #### [facility] ([id number]) [address] [place] [address] 54103 ALP [Catalytic activity/Vol] 82 U/L Normal 39-130 [facility] Comment on above: Performed By: #### Patrizia MANZANARES, CMP, 3039-3 #### [facility] ([id number]) [address] [place] [address] 50901 ALT [Catalytic activity/Vol] 15 U/L Normal 0-31 [facility] Comment on above: Performed By: #### C LEIGHTON CMP, 3039-3 #### [facility] ([id number]) [address] [place] [address] 15634 Anion gap [Moles/Vol] 8 mmol/L Normal 5-15 [facility] Comment on above: Performed By: #### C LEIGHTON CMP, 3039-3 #### [facility] ([id number]) [address] [place] [address] 86084 AST [Catalytic activity/Vol] 17 U/L Normal 0-41 [facility] Comment on above: Performed By: #### Patrizia MANZANARES CMP, 3039-07 #### [facility] ([id number]) [address] [place] [address] 12895 Bilirubin [Mass/Vol] 0.3 mg/dL Normal 0.3-1.2 [facility] Comment on above: Performed By: #### Patrizia MANZANARES, CMP, 3 #### [facility] ([id number]) [address] [place] [address] 28192 Calcium [Mass/Vol] 8.8 mg/dL Normal 8.5-10.5 [facility] Comment on above: Performed By: #### C LEIGHTON CMP, 3 #### [facility] ([id number]) [address] [place] [address] 42642 Chloride [Moles/Vol] 104 mmol/L Normal 98-109 [facility] Comment on above: Performed By: #### C LEIGHTON CMP, 3 #### [facility] ([id number]) [address] [place] [address] 74472 CO2 [Moles/Vol] 27 mmol/L Normal 22-32 [facility] Comment on above: Performed By: #### Patrizia BCA, CMP, 3039-3 #### [facility] ([id number]) [address] [place] [address] 57291 Creatinine [Mass/Vol] 0.80 mg/dL Normal 0.40-1.00 [facility] Comment on above: Result Comment: METH OD TRACEABLE TO IDMS STANDARD Performed By: #### C NAIN MANZANARES, 3040-3 #### [facility] ([id number]) [address] [place] [address] 48336 eGFR (CKD-EPI) NON-RACE DEPENDENT >90 Normal >59 [facility] Comment on above: Result Comment: Reported eGFR is based on the CKD-EPI 2020 equation that does not use a race coefficient. Performed By: #### C NAIN MANZANARES, 3039-3 #### [facility] ([id number]) [address] [place] [address] 64252 Glucose [Mass/Vol] 91 mg/dL Normal 65-99 [facility] Comment on above: Performed By: #### Patrizia MANZANARES CMP, 3 #### [facility] ([id number]) [address] [place] [address] 53016 Potassium [Moles/Vol] 3.7 mmol/L Normal 3.5-5.0 [facility] Comment on above: Performed By: #### C NAIN MANZANARES, 3039-3 #### [facility] ([id number]) [address] [place] [address] 21477 Protein [Mass/Vol] 7.6 g/dL Normal 6.0-8.0 [facility] Comment on above: Performed By: #### C NAIN MANZANARES, 3 #### [facility] ([id number]) [address] [place] [address] 67906 Sodium [Moles/Vol] 139 mmol/L Normal 134-146 [facility] Comment on above: Performed By: #### C NAIN MANZANARES, 3039-3 #### [facility] ([id number]) [address] [place] [address] [place] [address] Urea nitrogen [Mass/Vol] 11 mg/dL Normal 5-23 [facility] Comment on above: Performed By: #### C NAIN MANZANARES, 3040-3 #### [facility] ([id number]) [address] [place] [address] 31829 HCG ( test) Ql (U)o n 06-24-2023 Beta HCG ( test) Ql (U) Negative Normal NEG [facility] Comment on above: Performed By: #### 2 106-3 #### [facility] ([id number]) [address] [place] [address] 96052 LIPASEon 06-24-2023 Lipase [Catalytic activity/Vol] 35 U/L Normal 17-40 [facility] Comment on above: Performed By: #### C LEIGHTON [facility], 3040-3 #### [facility] ([id number]) [address] [place] [address] [place] [address] URN MACROSCOPIC NURon 2023 BILIRUBIN ISMAEL Negative Normal [facility] Comment on above: Performed By: #### N UM #### [facility] ([id number]) [address] [place] [address] [place] [address] BLOOD/HGB ISMAEL Negative Normal NEG [facility] Comment on above: Performed By: #### N UM #### [facility] ([id number]) [address] [place] [address] [place] [address] GLUCOSE ISMAEL Negative Normal NEG [facility] Comment on above: Performed By: #### N UM #### [facility] ([id number]) [address] [place] [address] [place] [address] KETONES ISMAEL Negative Normal NEG [facility] Comment on above: Performed By: #### N UM #### [facility] ([id number]) [address] [place] [address] 85575 LEUKOCYTE ESTERASE ISMAEL Negative Normal NEG [facility] Comment on above: Performed By: #### N UM #### [facility] ([id number]) [address] [place] [address] 74360 NITRITE ISMAEL Negative Normal NEG [facility] Comment on above: Performed By: #### N UM #### [facility] ([id number]) [address] [place] [address] 48081 PH ISMAEL 6.0 Normal 5.0-8.5 [facility] Comment on above: Performed By: #### N UM #### [facility] ([id number]) [address] [place] [address] 79069 PROTEIN ISMAEL Negative Normal NEG [facility] Comment on above: Performed By: #### N UM #### [facility] ([id number]) [address] [place] [address] 39773 SPECIFIC GRAVITY ISMAEL 1.015 Normal 1.003-1.035 [facility] Comment on above: Performed By: #### N UM #### [facility] ([id number]) [address] [place] [address] 44160 UROBILINOGEN ISMAEL 0.2 eu/dL Normal <1.1 [facility] Comment on above: Performed By: #### N UM #### [facility] ([id number]) [address] [place] [address] 34537 US PELVIC WITH TRANSVAGINAL AND DUPLEXon 06-24-2023 [...] Froilan Henson on 06/24/2023 10:20 PM Normal [facility] CNOVon 03-18-2023 CNOV Office Visit (PULMMN ) SANDEE NULL ([id number]) 1990 F Date Time Provider Department 03/18/23 12:00 PM RADHA VANG PULMMN During your visit today, we recorded the [...] 18, 2023 TIME: 11:33 AM PAGER/CONTACT #: [phone] Radha Vang MD 03/18/2023 11:48 AM Signed Please take the symbicort inhaler two puffs twice daily. Take albuterol as needed. Radha Vang MD With questions or concerns, please call the following: [facility] [phone] Press Option #2 for pulmonary office Allergies As of Date: 03/18/2023 Noted Allergy Reaction ADHESIVE TAPE-SILICONES 10/19/2021 14 - Other: See Comments Comments: Blisters, peeling skin LATEX 01/19/2017 2 - (more content not included)... [facility] Cholesterol [Mass/volume] in Serum or PlasmaOrdered By: Hardy Jones on 03-10-2023 Cholesterol [Mass/Vol] 143 mg/dL Normal 140-200 [facility] Comment on above: Chol less than 200 m g/dl low riskChol 201-239 mg/dl borderline riskChol 240 mg/dl and greater high risk Order Comment: FASTI NG Y Result Comment: Chol less than 200 mg/dl low risk Chol 201-239 mg/dl borderline risk Chol 240 mg/dl and greater high risk Performed By: #### T SH3 wRFLX, LIPID, [id number] #### [facility] [address] Cholesterol in LDL Calc [Mas s/Vol]Ordered By: Hardy Jones on 03-10-2023 Cholesterol in LDL [Mass/Vol] 77 mg/dL 0-100 [facility] Comment on above: LDL ATP III CLASSIFI CATIONLDL less than 100 mg/dL OptimalLDL 100-129 mg/dL Near or above optimalLDL 130-159 mg/dL Borderline highLDL 160-189 mg/dL HighLDL greater than 189 mg/dL Very high Cholesterol in VLDL Calc [Ma ss/Vol]Ordered By: Hardy Jones on 03-10-2023 Cholesterol in VLDL [Mass/Vol] 18 mg/dL [facility] ECG 12 lead ECGon 03-10-2023 ECG 12 lead ECG [facility] [address] [place] [address] [place] [address] Electrocardiograph Report Signed Patient: Sandee Null MR#: [id number] : 1990 Acct:[id number] Age/Sex: 33 / F ADM Date: 03/10/23 Loc: Room: [address] [place] [address] Type: ADM IN Attending Dr: Jus Santos [...] By Inga Miller DO 03/10 1722 Normal [facility] Lipid Panelon 03-10-2023 LDL Cholesterol,Calculate d 77 mg/dL Normal 0-100 [facility] Comment on above: Order Comment: FASTI NG Y Result Comment: LDL ATP III CLASSIFICATION LDL less than 100 mg/dL Optimal LDL 100-129 mg/dL Near or above optimal LDL 130-159 mg/dL Borderline high LDL 160-189 mg/dL High LDL greater than 189 mg/dL Very high Performed By: #### T SH3 wRFLX, LIPID, [id number] #### [facility] [address] Triglyceride w/Reflex 90 mg/dL Normal 0-149 [facility] Comment on above: Order Comment: FASTI NG Y Result Comment: TRIG ATP III CLASSIFICATION TRIG less than 150 mg/dL Normal TRIG 150-199 mg/dL Borderline high TRIG 200-500 mg/dL High TRIG greater than 500 mg/dL Very high Standard traceable to the Center for Disease Conrtrol and Prevention (CDC) test method. Performed By: #### T SH3 wRFLX, LIPID, [id number] #### [facility] [address] VLDL CHOLESTEROL 18 mg/dL Normal [facility] Comment on above: Order Comment: VEL Hutchison Performed By: #### T SH3 wRFLX, LIPID, [id number] #### [facility] [address] Serum or plasma high density lipoprotein (HDL) cholesterol measurementOrdered By: Hardy Jones on 03-10-2023 Cholesterol in HDL [Mass/Vol] 48 mg/dL Normal 23-92 [facility] Comment on above: HDL CHOL ATP-III CLA SSIFICATION Cardiovascular RiskHDL > or equal to 60 mg/dL LOWHDL < 40 mg/dL HIGH Order Comment: FASTI NG Y Result Comment: HDL CHOL ATP-III CLASSIFICATION Cardiovascular Risk HDL > or equal to 60 mg/dL LOW HDL < 40 mg/dL HIGH Performed By: #### T SH3 wRFLX, LIPID, [id number] #### [facility] [address] Serum or plasma total choles terol/high density lipoprotein (HDL) cholesterol mass ratOrdered By: Hardy Jones on 03-10-2023 Cholesterol.total/Cho lesterol in HDL [Mass ratio] 3.0 {ratio} Normal <5.0 [facility] Comment on above: Order Comment: FASTI NG Y Performed By: #### T SH3 wRFLX, LIPID, [id number] #### [facility] [address] [place] [address] Thyroid Stim Hormone w/Rflxo n 03-10-2023 Thyroid Stim Hormone w/Rflx 1.79 u[iU]/mL Normal 0.45-5.33 [facility] Comment on above: Order Comment: FASTI NG Y Performed By: #### T SH3 wRFLX, LIPID, [id number] #### [facility] [address] [place] [address] Thyrotropin [Units/volume] i n Serum or PlasmaOrdered By: Hardy Jones on 03-10-2023 TSH Qn 1.79 m[IU]/L 0.45-5.33 [facility] Triglyceride [Mass/volume] i n Serum or PlasmaOrdered By: Hardy Jones on 03-10-2023 Triglyceride [Mass/Vol] 90 mg/dL 0-149 [facility] Comment on above: TRIG ATP III CLASSIF ICATIONTRIG less than 150 mg/dL NormalTRIG 150-199 mg/dL Borderline highTRIG 200-500 mg/dL High TRIG greater than 500 mg/dL Very highStandard traceable to the Center for Disease Conrtrol and Prevention (CDC) test method. Vitamin D 25 Hydroxy Totalon 03-10-2023 Vitamin D 25 Hydroxy Total 27.0 ng/mL Low 30-100 [facility] Comment on above: Order Comment: VEL IQBAL Y Result Comment: LUCHO MIN D STATUS 25(OH)VITAMIN D RANGE (ng/mL) Deficient <20 Insufficient 20 to <30 Sufficient 30 to 100 Reference: Fred Azevedo, Chiquita MCQUEEN, et al. Evaluation,treatment, and prevention of vitamin D deficiency; an Endocrine Society clinical practice guideline. JCEM. 2010; 96(7):1911-. PERFORMED BY: [place] [address] PATHOLOGIST [employer]ONDARY TE[employer]ER NOHEMI HERNANDEZ M.D. Performed By: #### T SH3 wRFLX, LIPID, [id number] #### [address] Vitamin D+Metabolites [Mass/ volume] in Serum or PlasmaOrdered By: Hardy Jones on 03-10-2023 Vitamin D+Metabolites [Mass/Vol] 27.0 ng/mL 30-100 [facility] Comment on above: VITAMIN D STATUS 25( [place])VITAMIN D RANGE (ng/mL) Deficient <20 Insufficient 20 to <30Sufficient 30 to 100Reference: Fred Azevedo, Chiquita MCQUEEN, et al. Evaluation,treatment, and prevention of vitamin D deficiency; an Endocrine Society clinical practice guideline. JCEM. 2010; 96(7):1911-30. CBC AUTO DIFFon 09-21-2021 BASO # 0.1 103/ul Normal 0.0-0.1 [facility] Comment on above: Performed By: #### C BC #### [facility] [address] [address] [address] Jigna Acuna Basophils/100 WBC (Bld) 0.5 % Normal 0.2-2.0 [facility] Comment on above: Performed By: #### C BC #### [facility] [address] [address] [address] Jigna Acuna EO # 0.6 103/ul Normal 0.0-0.7 [facility] Comment on above: Performed By: #### C BC #### [facility] [address] [place] [address] Dr. Jigna Acnua Eosinophils/100 WBC (Bld) 6.2 % Normal 0.9-7.0 [facility] Comment on above: Performed By: #### C BC #### [facility] [address] [place] [address] Dr. Jigna Acuna Erythrocyte distribution width (RBC) [Ratio] 14.5 % Normal 11.0-15.0 [facility] Comment on above: Performed By: #### C BC #### [facility] [address] [place] [address] Dr. Jigna Acuna Hematocrit (Bld) [Volume fraction] 36.1 % Normal 36.0-48.0 [facility] Comment on above: Performed By: #### C BC #### [facility] [address] [place] [address] Dr. Jigna Acuna Hemoglobin (Bld) [Mass/Vol] 11.5 g/dL Critically low 12.0-16.0 [facility] Comment on above: Performed By: #### C BC #### [facility] [address] [place] [address] Dr. Jigna Acuna IG # 0.03 10e3/ul Normal 0.00-0.03 [facility] Comment on above: Performed By: #### C BC #### [facility] [address] [place] [address] Dr. Jigna Acuna IG % 0.3 % Normal 0.0-0.5 [facility] Comment on above: Performed By: #### C BC #### [facility] [address] [place] [address] Dr. Jigna Acuna LYMPH # 2.9 103/ul Normal 1.2-3.8 [facility] Comment on above: Performed By: #### C BC #### [facility] [address] [place] [address] Dr. Jigna Acuna Lymphocytes/100 WBC (Bld) 28.4 % Normal 20.5-60.0 [facility] Comment on above: Performed By: #### C BC #### [facility] [address] [place] [address] Dr. Jigna Acuna MANUAL DIFF REQ NO Normal [facility] Comment on above: Performed By: #### C BC #### [facility] [address] [place] [address] Dr. Jigna Acuna MCH (RBC) [Entitic mass] 27.1 pg Normal 26.7-34.0 [facility] Comment on above: Performed By: #### C BC #### [facility] [address] [place] [address] Dr. Jigna Acuna MCHC (RBC) [Mass/Vol] 31.9 g/dL Normal 29.9-35.2 [facility] Comment on above: Performed By: #### C BC #### [facility] [address] [place] [address] Dr. Jigna Acuna MCV (RBC) [Entitic vol] 84.9 fL Normal 81.0-99.0 [facility] Comment on above: Performed By: #### C BC #### [facility] [address] [place] [address] Dr. Jigna Acuna MONO # 0.5 103/ul Normal 0.3-0.8 [facility] Comment on above: Performed By: #### C BC #### [facility] [address] [place] [address] Dr. Jigna Acuna Monocytes/100 WBC (Bld) 4.9 % Normal 1.7-12.0 [facility] Comment on above: Performed By: #### C BC #### [facility] [address] [place] [address] Dr. Jigna Acuna NEUT # 6.0 103/ul Normal 1.4-6.5 [facility] Comment on above: Performed By: #### C BC #### [facility] [address] [place] [address] Dr. Jigna Acuna Neutrophils/100 WBC (Bld) 59.7 % Normal 43.0-75.0 [facility] Comment on above: Performed By: #### C BC #### [facility] [address] [place] [address] Dr. Jigna Acuna Platelet mean volume (Bld) [Entitic vol] 9.8 fL Normal 9.5-13.5 [facility] Comment on above: Performed By: #### C BC #### [facility] [address] [place] [address] Dr. Jigna Acuna PLT 317 103/ul Normal 150-450 [facility] Comment on above: Performed By: #### C BC #### [facility] [address] [place] [address] Dr. Jigna Acuna RBC 4.25 106/ul Normal 4.20-5.40 [facility] Comment on above: Performed By: #### C BC #### [facility] [address] [place] [address] Dr. Jigna Acuna WBC 10.0 103/ul Normal 4.0-11.0 [facility] Comment on above: Performed By: #### C BC #### [facility] [address] [place] [address] Dr. Jigna Acuna PROF CHEM 8 (BAS METB)on Anion gap [Moles/Vol] 12.2 mmol/L Normal [facility] Comment on above: Performed By: #### B MP #### [facility] [address] [place] [address] Dr. Jigna Acuna Calcium [Mass/Vol] 8.2 mg/dL Critically low 8.5-10.1 [facility] Comment on above: Performed By: #### B MP #### [facility] [address] [place] [address] Dr. Jigna Acuna Chloride [Moles/Vol] 99 mmol/L Normal 98-107 [facility] Comment on above: Performed By: #### B MP #### [facility] [address] [place] [address] Dr. Jigna Acuna CO2 [Moles/Vol] 28.7 mmol/L Normal 21.0-32.0 [facility] Comment on above: Performed By: #### B MP #### [facility] [address] [place] [address] Dr. Jigna Acuna Creatinine [Mass/Vol] 0.65 mg/dL Normal 0.55-1.02 [facility] Comment on above: Performed By: #### B MP #### [facility] [address] [address] [address] Jigna Acuna EGFR-AF LITHUANIAN >60 Normal >=60 [facility] Comment on above: Performed By: #### B MP #### [facility] [address] [address] [address] Jigna Acuna EGFR-NON AF LITHUANIAN >60 Normal >=60 [facility] Comment on above: Performed By: #### B MP #### [facility] [address] [address] [address] Jigna Acuna Glucose [Mass/Vol] 91 mg/dL Normal 74-106 [facility] Comment on above: Performed By: #### B MP #### [facility] [address] [place] [address] Dr. Jigna Acuna Potassium [Moles/Vol] 3.9 mmol/L Normal 3.5-5.1 [facility] Comment on above: Performed By: #### B MP #### [facility] [address] [place] [address] Dr. Jigna Acuna Sodium [Moles/Vol] 136 mmol/L Normal 136-145 [facility] Comment on above: Performed By: #### B MP #### [facility] [address] [place] [address] Dr. Jigna Acuna Urea nitrogen [Mass/Vol] 14.0 mg/dL Normal 7.0-18.0 [facility] Comment on above: Performed By: #### B MP #### [facility] [address] [place] [address] Dr. Jigna Acuna Urea nitrogen/Creatinine [Mass ratio] 21.5 mg/mg Normal [facility] Comment on above: Performed By: #### B MP #### [facility] [address] [place] [address] Dr. Jigna Acuna XR CHEST 2 Von [...] by: ROBERT VIERA Date: 2021-09-21 01:28 Normal [facility] Basic metabolic 2000 panelon 09-19-2021 Anion gap [Moles/Vol] 18 mmol/L Normal 9-18 [facility] Comment on above: Order Comment: Speci men Type: BLOOD SPECIMEN Ordering Facility: [facility] Address: [address] [place] [address] Performed By: #### 2 4321-2 #### [facility] CLIA [id number] [address] [place] [address] [place] Calcium [Mass/Vol] 8.5 mg/dL Normal 8.5-10.2 [facility] Comment on above: Order Comment: Speci men Type: BLOOD SPECIMEN Ordering Facility: [facility] Address: [address] [place] [address] Performed By: #### 2 4321-2 #### [facility] CLIA [id number] [address] [place] [address] [place] Chloride [Moles/Vol] 104 mmol/L Normal 97-105 [facility] Comment on above: Order Comment: Speci men Type: BLOOD SPECIMEN Ordering Facility: [facility] Address: [address] [address] Performed By: #### 2 4321-2 #### [facility] CLIA [id number] [address] [place] [address] [place] CO2 [Moles/Vol] 18 mmol/L Low 22-30 [facility] Comment on above: Order Comment: Norbert eddy Type: BLOOD SPECIMEN Ordering Facility: [facility] Address: [address] [address] Performed By: #### 2 4321-2 #### [facility] CLIA [id number] [address] [place] [address] STATES OF [facility] Creatinine [Mass/Vol] 0.81 mg/dL Normal 0.58-0.96 [facility] Comment on above: Order Comment: Norbert eddy Type: BLOOD SPECIMEN Ordering Facility: [facility] Address: [address] [place] [address] Performed By: #### 2 4321-2 #### [facility] CLIA [id number] [address] [place] [address] OF [facility] ESTIMATED GLOMERULAR FILTRATION RATE 101 mL/min/1.73m??? Normal >=60 [facility] Comment on above: Order Comment: Norbert [facility] Type: BLOOD SPECIMEN Ordering Facility: [facility] Address: [address] [place] [address] Result Comment: Frances mated Glomerular Filtration Rate [...] GFR. Performed By: #### 2 4321-2 #### [facility] CLIA [id number] [address] [place] [address] [place] Glucose [Mass/Vol] 107 mg/dL High 74-99 [facility] Comment on above: Order Comment: Norbert nunu Type: BLOOD SPECIMEN Ordering Facility: [facility] Address: [address] [place] [address] Result Comment: The [place] Diabetes Association (ADA) provides guidance for cutoff [...] Standards of Medical Care in Diabetes 2016, [place] [employer]. Diabetes Care. 2016.39(Suppl 1). Performed By: #### 2 4321-2 #### [facility] CLIA [id number] [address] [place] [address] [place] Potassium [Moles/Vol] 3.9 mmol/L Normal 3.7-5.1 [facility] Comment on above: Order Comment: Norbert eddy Type: BLOOD SPECIMEN Ordering Facility: [facility] Address: [address] [place] [address] Performed By: #### 2 4321-2 #### [facility] CLIA [id number] [address] [place] [address] [place] Sodium [Moles/Vol] 140 mmol/L Normal 136-144 [facility] Comment on above: Order Comment: Norbert eddy Type: BLOOD SPECIMEN Ordering Facility: [facility] Address: [address] [place] [address] Performed By: #### 2 4321-2 #### [facility] CLIA [id number] [address] [place] [address] [place] Urea nitrogen [Mass/Vol] 15 mg/dL Normal 7-21 [facility] Comment on above: Order Comment: Minhi nunu Type: BLOOD SPECIMEN Ordering Facility: [facility] Address: [address] [place] [address] Performed By: #### 2 4321-2 #### [facility] CLIA [id number] [address] [place] [address] [place] CBC panel Auto (Bld)on 09-19 Erythrocyte distribution width (RBC) [Ratio] 14.2 % Normal 11.5-15.0 [facility] Comment on above: Order Comment: Speci men Type: BLOOD SPECIMEN Ordering Facility: [facility] Address: [address] [place] [address] Performed By: #### 5 8410-2 #### [facility] CLIA [id number] [address] [place] [address] OF [facility] Hematocrit (Bld) [Volume fraction] 36.8 % Normal 36.0-46.0 [facility] Comment on above: Order Comment: Speci men Type: BLOOD SPECIMEN Ordering Facility: [facility] Address: [address] [place] [address] Performed By: #### 5 8410-2 #### [facility] CLIA [id number] [address] [place] [address] [place] Hemoglobin (Bld) [Mass/Vol] 12.1 g/dL Normal 11.5-15.5 [facility] Comment on above: Order Comment: Speci men Type: BLOOD SPECIMEN Ordering Facility: [facility] Address: [address] [place] [address] Performed By: #### 5 8410-2 #### [facility] CLIA [id number] [address] [place] [address] MCH (RBC) [Entitic mass] 27.9 pg Normal 26.0-34.0 [facility] Comment on above: Order Comment: Speci men Type: BLOOD SPECIMEN Ordering Facility: [facility] Address: [address] [place] [address] Performed By: #### 5 8410-2 #### [facility] CLIA [id number] [address] [place] [address] [place] MCHC (RBC) [Mass/Vol] 32.9 g/dL Normal 30.5-36.0 [facility] Comment on above: Order Comment: Speci men Type: BLOOD SPECIMEN Ordering Facility: [facility] Address: [address] [place] [address] Performed By: #### 5 8410-2 #### [facility] CLIA [id number] [address] [place] [address] [place] MCV (RBC) [Entitic vol] 84.8 fL Normal 80.0-100.0 [facility] Comment on above: Order Comment: Speci men Type: BLOOD SPECIMEN Ordering Facility: [facility] Address: [address] [place] [address] Performed By: #### 5 8410-2 #### [facility] CLIA [id number] [address] [place] [address] [place] Nucleated RBC (Bld) [#/Vol] 10*3/uL Normal <0.01 [facility] Comment on above: Order Comment: Speci men Type: BLOOD SPECIMEN Ordering Facility: [facility] Address: [address] [place] [address] Performed By: #### 5 8410-2 #### [facility] CLIA [id number] [address] [place] [address] [place] Platelet mean volume (Bld) [Entitic vol] 10.1 fL Normal 9.0-12.7 [facility] Comment on above: Order Comment: Speci men Type: BLOOD SPECIMEN Ordering Facility: [facility] Address: [address] [place] [address] Performed By: #### 5 8410-2 #### [facility] CLIA [id number] [address] [place] [address] [place] Platelets (Bld) [#/Vol] 349 10*3/uL Normal 150-400 [facility] Comment on above: Order Comment: Speci men Type: BLOOD SPECIMEN Ordering Facility: [facility] Address: [address] [place], [place] [address] Performed By: #### 5 8410-2 #### [facility] CLIA [id number] [address] [place] [address] [place] RBC (Bld) [#/Vol] 4.34 10*6/uL Normal 3.90-5.20 [facility] Comment on above: Order Comment: Speci men Type: BLOOD SPECIMEN Ordering Facility: [facility] Address: [address] [place] [address] Performed By: #### 5 8410-2 #### [facility] CLIA [id number] [address] [id number] [place] WBC (Bld) [#/Vol] 14.60 10*3/uL High 3.70-11.00 [facility] Comment on above: Order Comment: Speci men Type: BLOOD SPECIMEN Ordering Facility: [facility] Address: [address] [place] [address] Performed By: #### 5 8410-2 #### [facility] CLIA [id number] [id number] [facility] CNDSon 09-19-2021 CNDS HNO ID: [id number] Author: Rob Scott PA-C Service: Cardiac Surgery Author Type: Physician Turkey Pinner Type: Discharge Summary Filed: 09/19/2021 9:31 AM [...] of Thoracic Surgery Discharge Summary (Template ID [id number]) PATIENT NAME: Sandee Null ADMISSION DATE: 09/18/2021 [...] major fissure on a chest CT in [facility] in 09/2015. She was unaware that she [...] 6-9, and Chest tube placement x 1 (#24-Cypriot) Hospital Course: * How was the Reason for Hospitalization Addressed: Sandee Null is a very pleasant 31-year old female who is a former 10+ pack year smoker and who has severe asthma. She was found to have a 4 mm left lower lobe lung nodule near the left major fissure on a chest CT in [facility] in 09/2015. She was unaware that she [...] 6-9, and Chest tube placement x 1 (#24-Cypriot) on 09/18/2021. She was subsequently transferred to the PACU and th (more content not included)... [facility] CONSULT PROGon 09-19-2021 CONSULT PROG HNO ID: [id number] Author: Ronda Mendieta APRN.JONA Service: Pain Management Author Type: Nurse Practitioner [...] nRBC <0.01 k/uL <0.01 SIGNATURE: Ronda Mendieta APRN.CNP PATIENT NAME: Sandee Null DATE: September 19, 2021 TIME: 09:40 AM PAGER/CONTACT #: [facility] [phone] [facility] NURSING PROGon 09-19-2021 NURSING PROG HNO ID: [id number] Author: Mary Clark, RN Service: Nursing Author Type: Registered Nurse Type: Nursing Progress Note Filed: 09/19/2021 1:45 PM Note Text: Nursing Progress Note Patient Name: Sandee Null Patient Location: [address] [address] [address] Daily Note: see NPR for full assessment 0830 - PA Altemara up to floor to see patient, CT pulled 1330 - Went through discharge instructions, ALL aspects of care discussed, ALL questions and concerns addressed This note was completed by: Mary Clark [facility] HEALTH 09-18-2021 ALLIED HEALTH HNO ID: [id number] Author: RT Abbe(R) Service: Radiology Author Type: Technologist Type: Allied [...] PERIPHERAL IV DATA: Not applicable SIGNED BY: RT Abbe(R) September 18, 2021 7:10 PM [facility] ANES POSTPROC EVALon 022 ANES POSTPROC EVAL HNO ID: [id number] Author: Eliezer Lr MD Service: Anesthesiology Author Type: Anesthesiologist Type: Anesthesia Postprocedure Evaluation Filed: 09/18/2021 2:36 PM Note Text: POST ANESTHESIA EVALUATION NOTE : 1990 Procedure Summary Date: 09/18/21 Room / Location: [place] [address] / OR Anesthesia Start: 737 Anesthesia Stop: [...] September 18, 2021 TIME: 2:36 PM CSN: [id number] [facility] ANES PRE-OPon 09-18-2021 ANES PRE-OP HNO ID: [id number] Author: Pj Rendon DO Service: Anesthesiology Author Type: Resident Type: Anesthesia Preprocedure Evaluation Filed: 09/18/2021 7:16 AM Note Text: Attestation signed by Eliezer Lr MD at 09/18/2021 9:13 AM [facility] STAFF PHYSICIAN NOTE OF PERSONAL INVOLVEMENT IN [...] ADULT (Left Chest) - Atricure Cryoablation Location: OR10 / [facility] OR Surgeons: Donald Huang MD Estimated body [...] and consent discussed: yes. Patient / Responsible Libertarian agrees to proceed: yes Patient / Surrogate [...] September 18, 2021 TIME: 7:06 AM CSN: [id number] [facility] BRIEF OP NOTon 09-18-2021 BRIEF OP NOT HNO ID: [id number] Author: Donald Huang MD Service: Thoracic Surgery Author Type: Physician Type: Brief Op Note Filed: 09/18/2021 10:16 AM Note Text: BRIEF OPERATIVE / PROCEDURE NOTE LOG ID: [id number] SURGERY/PROCEDURE DATE: 09/18/2021 INCISION/PROCEDURE START TIME: 8:49 AM INCISION CLOSE/PROCEDURE END TIME: SURGEON(S)/PROCEDURALIST(S) AND HOME DEMONSTRATION AGENT(S): Surgeon(s) and Role: * Donald Huang MD - Primary Physician Turkey Pinner: Erick Trujillo PA-C SURGERY/PROCEDURE(S): 1. Left robotic-assisted lower lobe wedge resection x 1. 2. Left cryo-analgesia procedure, interspaces 6-9. (total time 20 minutes) 3. Chest tube placement x 1 (#24-Cypriot). ANESTHESIA: General FINDINGS: 1. Firm, irregular mass [...] DATE: September 18, 2021 TIME: 10:14 AM Normal [facility] Basic metabolic 2000 panelon 09-18-2021 Anion gap [Moles/Vol] 12 mmol/L Normal 9-18 [facility] Comment on above: Order Comment: Specden eddy Type: BLOOD SPECIMENOrdering Facility: [facility] Address: [address] [place] [address] Performed By: #### 2 4321-2 ####[facility] [id number] [place] [address] [place] Calcium [Mass/Vol] 8.2 mg/dL Low 8.5-10.2 [facility] Comment on above: Order Comment: Norbert eddy Type: BLOOD SPECIMENOrdering Facility: [facility] Address: [address] [place] [address] Performed By: #### 2 4321-2 ####[facility] [id number] [place] [address] [place] Chloride [Moles/Vol] 104 mmol/L Normal 97-105 [facility] Comment on above: Order Comment: Speci men Type: BLOOD SPECIMENOrdering Facility: [facility] Address: [address] [place] [address] Performed By: #### 2 4321-2 ####[facility] [id number] [place] [address] [place] CO2 [Moles/Vol] 21 mmol/L Low 22-30 [facility] Comment on above: Order Comment: Speci men Type: BLOOD SPECIMENOrdering Facility: [facility] Address: [address] Performed By: #### 2 4321-2 ####[facility] [id number] [address] [id number] [place] Creatinine [Mass/Vol] 0.72 mg/dL Normal 0.58-0.96 [facility] Comment on above: Order Comment: Norbert eddy Type: BLOOD SPECIMENOrdering Facility: [facility] Address: [address] [place] [address] Performed By: #### 2 4321-2 ####[facility] [id number] [address] [place] ESTIMATED GLOMERULAR FILTRATION RATE 116 mL/min/1.73m??? Normal >=60 [facility] Comment on above: Order Comment: [facility] Type: BLOOD SPECIMENOrdering Facility: [facility] Address: [address] [place] [address] Result Comment: Frances mated Glomerular Filtration Rate [...] actual GFR. Performed By: #### 2 4321-2 ####[facility] [id number] [address] [id number] [place] Glucose [Mass/Vol] 130 mg/dL High 74-99 [facility] Comment on above: Order Comment: Minhden eddy Type: BLOOD SPECIMENOrdering Facility: [facility] Address: [address] [address] Result Comment: The [place] Diabetes Association (ADA) provides guidance for cutoff [...] Standards of Medical Care in Diabetes 2016, [place] [employer]. Diabetes Care. 2016.39(Suppl 1). Performed By: #### 2 4321-2 ####[facility] [id number] [address] [id number] [place] Potassium [Moles/Vol] 4.2 mmol/L Normal 3.7-5.1 [facility] Comment on above: Order Comment: Speci men Type: BLOOD SPECIMENOrdering Facility: [facility] Address: [address] [place] [address] Performed By: #### 2 4321-2 ####[facility] [id number] [place] [address] [place] Sodium [Moles/Vol] 137 mmol/L Normal 136-144 [facility] Comment on above: Order Comment: Speci men Type: BLOOD SPECIMENOrdering Facility: [facility] Address: [address] [place] [address] Performed By: #### 2 4321-2 ####[facility]ORY[facility]IA [id number] [place] [address] [place] Urea nitrogen [Mass/Vol] 12 mg/dL Normal 7-21 [facility] Comment on above: Order Comment: Minhi men Type: BLOOD SPECIMENOrdering Facility: [facility] Address: [address] [address] Performed By: #### 2 4321-2 ####[facility]ORYCLIA [id number] [place] [id number] [place] CBC panel Auto (Bld)on 09-18 Erythrocyte distribution width (RBC) [Ratio] 14.0 % Normal 11.5-15.0 [facility] Comment on above: Order Comment: Minhi men Type: BLOOD SPECIMEN Ordering Facility: [facility] Address: [address] [address] Performed By: #### 5 8410-2 #### [facility] CLIA [id number] [address] [place] [address] OF [facility] Hematocrit (Bld) [Volume fraction] 36.5 % Normal 36.0-46.0 [facility] Comment on above: Order Comment: Speci men Type: BLOOD SPECIMEN Ordering Facility: [facility] Address: [address] [place] [address] Performed By: #### 5 8410-2 #### [facility] CLIA [id number] [address] [place] [address] [place] Hemoglobin (Bld) [Mass/Vol] 12.0 g/dL Normal 11.5-15.5 [facility] Comment on above: Order Comment: Speci men Type: BLOOD SPECIMEN Ordering Facility: [facility] Address: [address] [place] [address] Performed By: #### 5 8410-2 #### [facility] CLIA [id number] [address] [place] [address] MCH (RBC) [Entitic mass] 27.3 pg Normal 26.0-34.0 [facility] Comment on above: Order Comment: Speci men Type: BLOOD SPECIMEN Ordering Facility: [facility] Address: [address] [place] [address] Performed By: #### 5 8410-2 #### [facility] CLIA [id number] [address] [place] [address] [place] MCHC (RBC) [Mass/Vol] 32.9 g/dL Normal 30.5-36.0 [facility] Comment on above: Order Comment: Speci men Type: BLOOD SPECIMEN Ordering Facility: [facility] Address: [address] [place] [address] Performed By: #### 5 8410-2 #### [facility] CLIA [id number] [address] [place] [address] OF [facility] MCV (RBC) [Entitic vol] 83.0 fL Normal 80.0-100.0 [facility] Comment on above: Order Comment: Speci men Type: BLOOD SPECIMEN Ordering Facility: [facility] Address: [address] [place] [address] Performed By: #### 5 8410-2 #### [facility] CLIA [id number] [address] [place] [address] [place] Nucleated RBC (Bld) [#/Vol] 10*3/uL Normal <0.01 [facility] Comment on above: Order Comment: Speci men Type: BLOOD SPECIMEN Ordering Facility: [facility] Address: [address] [place] [address] Performed By: #### 5 8410-2 #### [facility] CLIA [id number] [address] [place] [address] [place] Platelet mean volume (Bld) [Entitic vol] 10.6 fL Normal 9.0-12.7 [facility] Comment on above: Order Comment: Speci men Type: BLOOD SPECIMEN Ordering Facility: [facility] Address: [address] [place] [address] Performed By: #### 5 8410-2 #### [facility] CLIA [id number] [address] [place] [address] [place] Platelets (Bld) [#/Vol] 304 10*3/uL Normal 150-400 [facility] Comment on above: Order Comment: Speci men Type: BLOOD SPECIMEN Ordering Facility: [facility] Address: [address] [place] [address] Performed By: #### 5 8410-2 #### [facility] CLIA [id number] [address] [place] [address] [place] RBC (Bld) [#/Vol] 4.40 10*6/uL Normal 3.90-5.20 [facility] Comment on above: Order Comment: Speci men Type: BLOOD SPECIMEN Ordering Facility: [facility] Address: [address] [place] [address] Performed By: #### 5 8410-2 #### [facility] CLIA [id number] [address] [place] [address] [place] WBC (Bld) [#/Vol] 11.34 10*3/uL High 3.70-11.00 [facility] Comment on above: Order Comment: Speci men Type: BLOOD SPECIMEN Ordering Facility: [facility] Address: [address] [place] [address] Performed By: #### 5 8410-2 #### [facility] CLIA [id number] [place] BLOOD TYPEon 022 ABO O Normal [facility] Comment on above: Order Comment: Speci men Type: BLOOD SPECIMENOrdering Facility: [facility] Address: [address] [place] [address] Performed By: #### C ONABO ####[facility]CL[facility] [id number] [address] Rh Nom (Bld) Positive [facility] Comment on above: Order Comment: Speci men Type: BLOOD SPECIMENOrdering Facility: [facility] Address: [address] [place] [address] Performed By: #### C ONABO ####[facility] [id number] [address] HISTORY PHYSICALon HISTORY PHYSICAL HNO ID: [id number] Author: Erick Trujillo PA-C Service: Cardiac Surgery Author Type: Physician Turkey Pinner Type: HANDP Filed: 09/18/2021 7:31 AM Note [...] DATE: September 18, 2021 TIME: 7:31 AM [facility] Magnesium SerPl-mCncon 09-18 Magnesium [Mass/Vol] 1.8 mg/dL Normal 1.7-2.3 [facility] Comment on above: Order Comment: Speci men Type: BLOOD SPECIMEN Ordering Facility: [facility] Address: [address] [place], [place] [address] Performed By: #### 1 9123-9 #### [facility] CLIA [id number] NURSING PROGon 09-18-2021 NURSING PROG HNO ID: [id number] Author: Mary Clark, MORENA Service: Nursing Author Type: Registered Nurse Type: Nursing Progress Note Filed: 09/18/2021 4:56 PM Note Text: Nursing Progress Note Patient Name: Sandee Null Patient Location: [place] [address] [address] Transfer Note: Patient transferred into room/unit PK232 in stable condition. Actions taken: No futher actions taken at this time. 1645 - patient up to bathroom, voided This note was completed by: Mary Clark [facility] NURSING PROG HNO ID: [id number] Author: Leah Caballero RN Service: Nursing Author Type: Registered Nurse Type: Nursing Progress Note Filed: 09/18/2021 7:13 AM Note Text: Left single shot paravertebral neve blocks x2 Dr. Grover Patient verbalizes understanding. Tolerated procedure well report given to primary RN. [facility] NURSING PROG HNO ID: [id number] Author: Sandra Alcala RN Service: ? Author [...] (RECOMMENDATION): None Electronically Signed By: Sandra Alcala [facility] OPERATIVE NOon 09-18-2021 OPERATIVE NO HNO ID: [id number] Author: Donald Huang MD Service: Thoracic Surgery Author Type: Physician Type: Operative Report Filed: 09/18/2021 10:41 AM Note Text: DATE: SEPTEMBER 18, 2021 NAME: SANDEE NULL MR# [id number] PREOPERATIVE DIAGNOSIS: 1. Left lower lobe lung nodule. POSTOPERATIVE DIAGNOSIS: 1. Necrotic granuloma in the left lower lobe. PROCEDURES PERFORMED: 1. Left robotic-assisted lower lobe wedge resection x 1. 2. Left cryo-analgesia procedure, interspaces 6-9. (total time 20 minutes) 3. Chest tube placement x 1 (#24-Cypriot). SURGEON: Donald Huang Jr., M.D. RESIDENT SURGEON: NONE. (there was no qualified resident to assist with this operation). HOME DEMONSTRATION AGENT: Erick Trujillo PA-C ANESTHESIA: General endotracheal anesthesia. [...] major fissure on a chest CT in [facility] in 09/2015. She was unaware that she [...] minutes) 3. Chest tube placement x 1 (#24-Cypriot). The physician assistants participated in transporting the patient to and from the operating room, positioning of the patient, creation of robotic port sites, port placement and docking the robotic patient cart, bedside pediatric assistant duties, changing instruments, passing materials into [...] patient tolera (more content not included)... Normal [facility] SURGICAL PATHOLOGYon 022 ADDENDUM 1: [facility] Comment on above: Order Comment: Speci men Type: TISSUE SPECIMEN Ordering Facility: [facility] Address: [address] [place] [address] Result Comment: With in the necrosis, a GMS stain shows small round to oval fungal yeasts with morphologic features that fit with Histoplasma. An AFB stain is negative. Addendum electronically signed by Milo Gan MD on 09/21/2021 at 12:08 PM Performed By: #### S #### [facility] CLIA [id number] [address] [place], [place] [address] [address] LABORATORY CLIA [id number] [place] [address] CASE REPORT Normal [facility] Comment on above: Order Comment: Speci men Type: TISSUE SPECIMEN Ordering Facility: [facility] Address: [address] [id number] Result Comment: Surg ical Pathology Report Case: [id number] Authorizing Provider: Donald Huang MD Collected: 09/18/2021 09:11 AM Ordering Location: [facility] Received: 09/18/2021 09:31 AM Operating Room Pathologist: Milo Gan MD Intraop: Willem Chavez MD Specimen: LUNG WEDGE RESECTION LEFT, Left Lower Lobe Wedge Performed By: #### S #### [facility] CLIA [id number] [address] [place] [address] LABORATORY CLIA [id number] [address] [place] [address] CLINICAL HISTORY LOWER LOBE WEDGE RES ECTION, POSS LEFT LOWER LOBE SEGMENTECTOMY, POSS LEFT LOWER LOBECTOMY, MEDIASTINAL LYMPH NODE DISSECTION; Atricure cryoblation [facility] Comment on above: Order Comment: Speci men Type: TISSUE SPECIMEN Ordering Facility: [facility] Address: [address] [place] [address] Performed By: #### S #### [facility] CLIA [id number] [address] [place] [address] LABORATORY CLIA [id number] [address] [place] [address] DIAGNOSIS COMMENT Special stains for microorganisms (AFB and GMS) have been requested and will be reported in an addendum. [facility] Comment on above: Order Comment: Speci men Type: TISSUE SPECIMEN Ordering Facility: [facility] Address: [address] [place] [address] Performed By: #### S #### [facility] CLIA [id number] [address] [place] [address] LABORATORY CLIA [id number] [address] [place] [address] FINAL DIAGNOSIS [facility] Comment on above: Order Comment: Speci men Type: TISSUE SPECIMEN Ordering Facility: [facility] Address: [address] [place] [address] Result Comment: A. L fanny, left lower lobe, wedge resection: - Necrotizing granuloma (See comment). Performed By: #### S #### [facility] CLIA [id number] [address] [place] [address] LABORATORY CLIA [id number] [address] [place] [address] FINAL PERFORMING LAB Normal [facility] Comment on above: Order Comment: Speci men Type: TISSUE SPECIMEN Ordering Facility: [facility] Address: [address] [place] [address] Result Comment: Diag nostic interpretation performed at [facility], [address] [place] [address] CLIA# [id number] Executive Secretary Social Welfare: Tyler Simon M.D. Performed By: #### S #### [facility] CLIA [id number] [address] [place] [address] LABORATORY CLIA [id number] [address] [place] [address] GROSS DESCRIPTION Normal [facility] Comment on above: Order Comment: Speci men Type: TISSUE SPECIMEN Ordering Facility: [facility] Address: [address] [place] [address] Result Comment: A. L FANNY WEDGE RESECTION [...] remaining lung parenchyma is pink-martinez and spongy. Glass Scullion sections are submitted as follows: A1 entire nodule with parenchymal margin perpendicular for frozen section A2 uninvolved lung parenchyma WE September 18, 2021 11:03 AM Intraoperative diagnosis performed at [facility], [address] [place] [address] Performed By: #### S #### [facility] CLIA [id number] [address] [place], [place] [address] [facility] LABORATORY CLIA [id number] [address] [place] [address] OF [facility] INTRAOPERATIVE DIAGNOSIS Normal [facility] Comment on above: Order Comment: Speci men Type: TISSUE SPECIMEN Ordering Facility: [facility] Address: [address] [place] [address] Result Comment: A. L FANNY WEDGE RESECTION LEFT. A1 necrotic granuloma in background of lymphocytes and plasma cells (). WE September 18, 2021 11:04 AM Intraoperative diagnosis performed at [facility], [address] [place] [address] Performed By: #### S #### [facility] CLIA [id number] [address] [place] [address] [id number] [id number] [facility] LABORATORY CLIA [id number] [address] [place] [address] XR CHEST 1V FRONTALon 2021 XR CHEST 1V FRONTAL * * *Final [...] Patchy opacities in the lung bases bilaterally Coal Drier Operator: AMY Transcribe Date/Time: Sep 19 2021 7:07A Dictated by : EDWIGE MENA MD This examination was interpreted and the report reviewed and electronically signed by: EDWIGE MENA MD on Sep 19 2021 7:09AM EST [id number] Normal [facility] XR CHEST 1V FRONTAL * * [...] AND LEFT SUPRAHILAR INFILTRATES, NEW SINCE 08/13/2021. Coal Drier Operator: AMY Transcribe Date/Time: Sep 18 2021 12:30P Dictated by : FRANCIA RUVALCABA MD This examination was interpreted and the report reviewed and electronically signed by: FRANCIA RUVALCABA MD on Sep 18 2021 12:33PM EST [id number] [facility] CNOVon 08-22-2021 CNOV Office Visit (FVTHOR ) SANDEE NULL ([id number]) 1990 F Date Time Provider Department 08/22/21 9:30 AM DONALD HUANG FVTHOR During your visit today, we recorded the [...] major fissure on a chest CT in [facility] in 09/2015. She was unaware that she [...] mg intramuscularly at bedtime as needed. - Dmrushgb-Rc-Qdv-Fe-FA tab Take 1 tablet by mouth. - [...] right CVA (more content not included)... Normal [facility] 08-15-2021 [facility] Telephone ([employer]) SANDEE NULL ( ) 1990 F Date Time Provider Department 08/15/21 RADHA VANG During your visit today, we recorded the following information about you: Radha Vang MD 08/15/2021 1:13 PM Signed Discussed with Ms. Null that IR does [...] left lung [R91.1] Order(s):CONSULT TO CARDIOTHORACIC SURGERY [[id number]] Order #: [id number]: 1 Prescriptions as of 08/15/2021 - famotidine (PEPCID) 10 mg tablet 20 mg. - albuterol HFA (PROVENTIL HFA, VENTOLIN HFA) 90 mcg/actuation inhaler Inhale 2 Puffs as instructed every 6 hours as needed. - budesonide-formoterol (SYMBICORT) 160-4.5 mcg/actuation inhaler Inhale 2 Puffs as instructed. - EPINEPHrine (EPIPEN) 0.3 mg/0.3 mL auto-injector Inject 0.3 mg intramuscularly at bedtime as needed. - Vfchlsji-Iv-Xte-Fe-FA tab Take 1 tablet by mouth. - promethazine (PHENERGAN) 12.5 mg tablet Take 12.5 mg by mouth three times daily as needed. - tiotropium (SPIRIVA WITH HANDIHALER) 18 mcg inhalation capsule Inhale 1 capsule as instructed once daily. Use with HandiHaler. Problem List As Of Date: 08/15/2021 (None) Encounter Status:Closed by RADHA VANG on 08/15/21 [facility] CNPN Telephone (IRRFV) SANDEE NULL ([id number]) 1990 F Date Time Provider Department 08/15/21 HANNAH MYERS IRRFV During your visit today, we recorded the following information about you: Hannah Myers RN 08/15/2021 9:[address] Ciera pena to notify of lung biopsy request denial. [...] mg intramuscularly at bedtime as needed. - Tkxroryr-Jd-Kce-Fe-FA tab Take 1 tablet by mouth. - promethazine (PHENERGAN) 12.5 mg tablet Take 12.5 mg by mouth three times daily as needed. - tiotropium (SPIRIVA WITH HANDIHALER) 18 mcg inhalation capsule Inhale 1 capsule as instructed once daily. Use with HandiHaler. Problem List As Of Date: 08/15/2021 (None) Encounter Status:Closed by HANNAH MYERS on 08/15/21 Normal [facility] CNPNon 08-14-2021 CNPN Telephone (GEOVANY) SANDEE NULL ( ) 1990 [...] the lung nodule will take place at [facility] because she lives closer to that hospital. She also says that she is having uncontrolled asthma symptoms. I have asked for her to follow up in pulmonary clinic so that we can discuss this more. She also tells me that she has been unable to get her chest CT from [facility] in [place] from the time that she was there [...] Diagnosis:Lung nodules [R91.8] Order(s):CT CHEST WO IVCON [[id number]] Order #: [id number] FUTURE IMAGING GUIDED BIOPSY LUNG [[id number]] Order #: [id number] Prescriptions as of 08/14/2021 - famotidine (PEPCID) 10 mg tablet 20 mg. - albuterol HFA (PROVENTIL HFA, VENTOLIN HFA) 90 mcg/actuation inhaler Inhale 2 Puffs as instructed every 6 hours as needed. - budesonide-formoterol (SYMBICORT) 160-4.5 mcg/actuation inhaler Inhale 2 Puffs as instructed. - EPINEPHrine (EPIPEN) 0.3 mg/0.3 mL auto-injector Inject 0.3 mg intramuscularly at bedtime as needed. - Jqpkfuty-To-Ynn-Fe-FA tab Take 1 tablet by mouth. - promethazine (PHENERGAN) 12.5 mg tablet Take 12.5 mg by mouth three times daily as needed. - tiotropium (SPIRIVA WITH HANDIHALER) 18 mcg inhalation capsule Inhale 1 capsule as instructed once daily. Use with HandiHaler. Problem List As Of Date: 08/14/2021 (None) Encounter Status:Closed by RADHA VANG on 08/14/21 [facility] No Panel Informationon 08-14 Radiology Result ACTIONABLE Abnormal Clecorneliaan d [facility] 04-06-2021 [facility] (FVPRAD) SANDEE NULL ([id number]) 1990 F Date Time Provider Department 04/06/21 [...] Vomiting Date Reviewed: 04/21/2020 Reviewed by: Radha Vang - Fully Assessed Reason for Visit: Results [95] Visit Diagnosis:Primary malignant neoplasm (HCC) [C80.1] Order(s):NM PET/CT SKULL-THIGH INITIAL [[id number]] Order #: [id number] FUTURE Prescriptions as of 04/06/2021 - famotidine (PEPCID) 10 mg tablet 20 mg. - albuterol HFA (PROVENTIL HFA, VENTOLIN HFA) 90 mcg/actuation inhaler Inhale 2 Puffs as instructed every 6 hours as needed. - budesonide-formoterol (SYMBICORT) 160-4.5 mcg/actuation inhaler Inhale 2 Puffs as instructed. - EPINEPHrine (EPIPEN) 0.3 mg/0.3 mL auto-injector Inject 0.3 mg intramuscularly at bedtime as needed. - Jiesxofb-Vb-Esg-Fe-FA tab Take 1 tablet by mouth. - promethazine (PHENERGAN) 12.5 mg tablet Take 12.5 mg by mouth three times daily as needed. - tiotropium (SPIRIVA WITH HANDIHALER) 18 mcg inhalation capsule Inhale 1 capsule as instructed once daily. Use with HandiHaler. Problem List As Of Date: 04/06/2021 (None) Encounter Status:Closed by RADHA VANG on 04/06/21 Normal [facility] Covid-19 PCR (CVDTBH)on 12-17 SARS-CoV-2 (COVID-19) RNA SULLY+probe Ql (Unsp spec) Not detected Normal NOT DETECTED [facility] Comment on above: Result Comment: This test is not yet approved or cleared by the [place] FDA. When there are no FDA-approved or cleared tests available, and other criteria are met, FDA can make tests available under an emergency access mechanism called an Emergency Use Authorization (EUA). The EUA for this test is supported by the Fishing Boat Captain of Health and Human Service's (HHS's) declaration [...] consistent with SARS-CoV-2. Performed By: #### C ROWAN, PRADEEPS #### [facility] [address] [place] [address] Sofy Young SYMPTOMATIC COVID-19 ANTIGEN on 12-28-2020 EUA Statement SEE BELOW Normal [facility] Comment on above: Result Comment: This [...] is revoked sooner. Performed By: #### C ROWAN, PRADEEPS #### [facility] [address] [place] [address] Sofy Young SARS-CoV-2 (COVID-19) RNA SULLY+probe Ql (Unsp spec) Negative Normal NEGATIVE [facility] Comment on above: Result Comment: CONF IRMATION BY PCR PENDING PER CDC GUIDELINES/ SYMPTOMATIC PATIENT. Performed By: #### C ROWAN, CVDAGS #### [facility] [address] [place] [address] Sofy Young David 04-21-2020 [facility] Telephone (AKPRAD) ASNDEE NULL ( ) 1990 F Date Time [...] Visit Diagnosis:Lung nodules [R91.8] Order(s):CT CHEST WO OCTAVIO [[id number]] Order #: [id number] FUTURE Prescriptions as of 04/21/2020 Sig: FAMOTIDINE [...] Status:Closed by RADHA VANG MD on 04/21/20 [facility] David 04-14-2020 CNPN Telephone (AVXRCT) SANDEE NULL ([id number]) 1990 F Date Time Provider Department 04/14/20 MISA PINZON (CT) AVXRCT During your visit today, we recorded the following information about you: RAF Baez CT 04/14/2020 4:22 PM Signed Appt line [...] Encounter Status:Closed by MISA FLORIAN on 04/14/20 [facility] Depart Summaryon 04-04-2017 Depart Summary EMERGENCY DEPARTMENT DISCHARGE SUMMARYPATIENT NAME:SANDEE NULL : 27 Years SEX: Female PHONE:[id number]: 04/03/2017 9:44 PM : 1990 ATTENDING PHYSICIAN:Ti Bautista PCP: Vladimir Estrada DO CHIEF COMPLAINT: Asthma Flare-up Allergies No Allergies DocumentedProblems Active Asthma DISCHARGE DIAGNOSIS: DISCHARGE INSTRUCTIONS: Asthma, Adult, Rgak-sm-Ehge HISTORY OF PRESENT ILLNESS:The patient is a 28-year-old female past medical history significant for asthma, right ventricular hypertrophy, congenital cardiomyopathy. Patient is in ED with complaint of shortness of breath. Patient states that it is acutely worsened within the last hour, however she has been in [place] for a business trip for several days [...] Internal Medicine Within Follow-up as needed Normal [facility] ED [facility] Domenico 04-04-2017 ED [place] [address] [facility] Discharge Instructions SANDEE NULL , Please [...] Procedure(s) and Patient Education(s) : Asthma, Adult, Iafv-xk-Myjr EMERGENCY SERVICES MEDICATION LISTLista de Medicaciones de los Servicios de Emergencia Name SANDEE NULL PLEASE READ THE FOLLOWING REGARDING YOUR MEDICATIONS [...] doses are changed, or new medications (including oifq-bai-ctcpybr products) are added. If you have any [...] TAKE UNTIL YOU TALK TO YOUR DOCTORNone [place] [id number] Emergency Department Discharge Instructions Name: SANDEE NULL Current Date: 04/03/2017 23:29:29 : 1990 12:00 PM Primary Physician: Vladimir Estrada DO We would like to thank you for choosing [facility] for your emergency medical needs. We examined [...] and the health of those around you. [facility] offers many resources to help with smoking cessation. Call the [place] Tobacco Quit Line at 6-407-NAJINOW ( ).High blood pressure: Your screening blood [...] deadly infections. Discuss this with your child's salesperson toy trains and accessories, or Public Health Department. Your family practice doctor can determine if you need pneumonia or flu vaccine. The [facility] Department can be reached at .Domestic Violence:If you are a victim of domestic violence (physical, verbal, or emotional), you are not alone. Discuss this with your physician or a friend and call the [place] Domestic Violence Hotline or [place] Domestic Violence Hotline for assistance and support.You [...] physician, call the Physician Referral Line at (464) 675-ZHGK (5379). Suicide Hotline:Your mental and emotional well-being is important. If you are in a mental health crisis or are having thoughts of suicide, please call the nationwide suicide hotline, anytime day or night, at 7-881-112-SGYH (8001).Community Set Up Mechanic Automatic Line: You may be contacted by your local fire department for a follow up visit from a community boat repairer. The community boat repairer can help with a home safety check; follow up care, and general home care management. Pharmacy Information:Below is a list of 24 hour pharmacies that we are aware of. We suggest that you call the specific pharmacy for their hours before traveling to a location. Hours may vary on holidays. [facility] [place] [address] [facility], [phone] [address] [facility], [id number], [phone] [place], [place] [address], [phone], [place] [address] [place], [place] [address] [place], [phone] [address] [place], [place] [address] [place], [place] [address], [place] [address] [phone] [address] [phone] [address] [place], [place] [phone] [place], [place] [place], [place] [address] Take all medications as directed. If you need prescription assistance, contact the following agencies:?? Partnership for Prescription Assistance at or www.pparx.org?? [facility] Rx at or www.Digital Room, Incbestrx.org?? www.RobinRDream home renovations.EyeNetra is a site with many valuable coupons [...] ches. ???Pollen.???Mold.???Smoke. ???Cleaning products.???Hair sprays or aerosol sprays.???[place] fumes or strong smells. ???Cold air, weather [...] you are not home. Use a vacuum ceiling cleaner with a HEPA filter if possible.???Replace [...] Document Reviewed: 12/02/2013[employer] Patient Education ?2016 [employer]><><><><><><><><><><>< ><><><><><><><><><><><>< ><><><><><><><><><><><><><> <><><> Patient Visit Summary Signature SNADEE NULL has been given the following list of patient education materials, prescriptions and follow-up instructions: MAHSA Alarcon MARIA G, have received the above patient education materials/instructions and have verbalized understanding: Date Time Patient Signature Date Time Provider Signature Normal [facility] ED Physician Noteson 017 ED Physician Notes Patient: SANDEE NULL Age: 27 years Sex: Female : 1990 Associated Diagnoses: None Author: Ti Bautista History of Present Illness The patient is a 28-year-old female past medical history significant for asthma, right ventricular hypertrophy, congenital cardiomyopathy. Patient is in ED with complaint of shortness of breath. Patient states that it is acutely worsened within the last hour, however she has been in [place] for a business trip for several days [...] or recorded.. Social history: Social and Psychosocial SzukfwGtcjrgb90/16/2017 Risk Assessment: Denies Alcohol UseSubstance Abuse04/03/2017 Risk [...] EST Chief Complaint-Triage Asthma Flare-up . Normal [facility] ED Physician Notes PDF Normal [facility] ED Physician Notes Patient: SANDEE NULL MRN: ([id number] Age: 27 years Sex: Female : 1990 [...] phase and only fair air movement. Normal [facility] ED Physician Notes PDF Normal [facility] XR Chest 2 Viewson 7 XR Chest 2 Views EXAMINATION TYPE: XR Chest 2 Views DATE OF EXAM: 04/03/2017 10:26 PMHISTORY: Cough, asthma attack. Short of breath with cough. Chest tightness today, pain level = 8/10COMPARISON: NONEFindings: The lungs are clear. Heart size, mediastinum, and pulmonary vasculature are within normal limits.Impression:Grabiel amalia Santamaria thanks you for the opportunity to care for your patient. Workstation ID: [id number] FINAL REPORT Dictated By: Varinder Bartholomew MD 04/03/2017 22:30Assigned Physician: Varinder Bartholomew MD AReviewed and Electronically Signed By: Varinder Bartholomew MD 04/03/2017 22:30Transcribed by: HODA 04/03/2017 22:30Technologist: REJI Blackman [facility] Vital Signs Date Time Vital Sign Value Performing Clinician Facility 05-27-2023 11:45-0500 Body height 157.48 cm Bessy Adam Other [facility] Other 05-27-2023 11:45-0500 Body mass index (BMI) [Ratio] 48.46 kg/m2 Bessy Adam Other [facility] Other 05-27-2023 11:45-0500 Body temperature 97.1 [degF] Bessy Adam Other [facility] Other 05-27-2023 11:45-0500 Body weight 120.2 kg Bessy Adam Other [facility] Other 05-27-2023 11:45-0500 Respiratory rate 18 /min Bessy Adam Other [facility] Other 05-27-2023 11:45-0500 SaO2% (BldA) [Mass fraction] 97 % Bessy Adam Other [facility] Other 03-18-2023 11:20-0400 Body temperature 96.91 [degF] Radha Ciera MD Work Phone: [facility] 03-18-2023 11:20-0400 Body weight 124.74 kg Radha Vang MD Work Phone: [facility] 03-18-2023 11:20-0400 Diastolic blood pressure 74 mm[Hg] Radha Vang MD Work Phone: [facility] 03-18-2023 11:20-0400 Heart rate 91 /min Radha Vang MD Work Phone: [facility] 03-18-2023 11:20-0400 Respiratory rate 16 /min Radha Vang MD Work Phone: [facility] 03-18-2023 11:20-0400 SaO2% (BldA) [Mass fraction] 98 % Radha Vang MD Work Phone: [facility] 03-18-2023 11:20-0400 Systolic blood pressure 127 mm[Hg] Radha Vang MD Work Phone: [facility] 03-12-2023 07:30-0400 Body temperature 98.3 [degF] PHYSICIAN NO [facility] 03-12-2023 07:30-0400 Diastolic blood pressure 82 mm[Hg] PHYSICIAN NO [facility] 03-12-2023 07:30-0400 Heart rate 96 /min PHYSICIAN NO [facility] 03-12-2023 07:30-0400 Respiratory rate 20 /min PHYSICIAN NO [facility] 03-12-2023 07:30-0400 SaO2% (BldA) [Mass fraction] 96 % PHYSICIAN NO [facility] 03-12-2023 07:30-0400 Systolic blood pressure 120 mm[Hg] PHYSICIAN NO [facility] 03-11-2023 14:48-0400 Body height 162.56 cm PHYSICIAN NO [facility] 03-10-2023 09:00-0400 Body weight 126.09 kg PHYSICIAN NO [facility] 10-19-2021 09:15-0400 Body height 157.5 cm Erick Trujillo PA-C Work Phone: [facility] 10-19-2021 09:15-0400 Body weight 129.73 kg Erick Trujillo PA-C Work Phone: [facility] 10-19-2021 09:15-0400 Diastolic blood pressure 91 mm[Hg] Erick Trujillo PA-C Work Phone: [facility] 10-19-2021 09:15-0400 Heart rate 100 /min Erick Trujillo PA-C Work Phone: [facility] 10-19-2021 09:15-0400 SaO2% (BldA) [Mass fraction] 96 % Erick Trujillo PA-C Work Phone: [facility] 10-19-2021 09:15-0400 Systolic blood pressure 141 mm[Hg] Erick Trujillo PA-C Work Phone: [facility] 09-14-2021 09:15-0400 Body height 157.5 cm Donald Huang MD Work Phone: [facility] 09-14-2021 09:15-0400 Body weight 131.54 kg Donald Huang MD Work Phone: [facility] 09-14-2021 09:15-0400 Diastolic blood pressure 84 mm[Hg] Donald Huang MD Work Phone: [facility] 09-14-2021 09:15-0400 Heart rate 103 /min Donald Huang MD Work Phone: [facility] 09-14-2021 09:15-0400 SaO2% (BldA) [Mass fraction] 100 % Donald Huang MD Work Phone: [facility] 09-14-2021 09:15-0400 Systolic blood pressure 132 mm[Hg] Donald Huang MD Work Phone: [facility] 09-12-2021 12:30-0400 Body height 157.5 cm Pac 3 Work Phone: [facility] 09-12-2021 12:30-0400 Body temperature 97.59 [degF] Pacc 3 Work Phone: [facility] 09-12-2021 12:30-0400 Body weight 131.54 kg Pacc 3 Work Phone: [facility] 09-12-2021 12:30-0400 Diastolic blood pressure 79 mm[Hg] Pacc 3 Work Phone: [facility] 09-12-2021 12:30-0400 Heart rate 98 /min Pacc 3 Work Phone: [facility] 09-12-2021 12:30-0400 Respiratory rate 20 /min Pacc 3 Work Phone: [facility] 09-12-2021 12:30-0400 SaO2% (BldA) [Mass fraction] 100 % Pacc 3 Work Phone: [facility] 09-12-2021 12:30-0400 Systolic blood pressure 127 mm[Hg] Pacc 3 Work Phone: [facility] 08-22-2021 09:29-0400 Body height 157.5 cm Donald Huang MD Work Phone: [facility] 08-22-2021 09:29-0400 Body temperature 97.81 [degF] Donald Huang MD Work Phone: [facility] 08-22-2021 09:29-0400 Body weight 132.04 kg Donald Huang MD Work Phone: [facility] 08-22-2021 09:29-0400 Diastolic blood pressure 80 mm[Hg] Donald Huang MD Work Phone: [facility] 08-22-2021 09:29-0400 Heart rate 128 /min Donald Huang MD Work Phone: [facility] 08-22-2021 09:29-0400 SaO2% (BldA) [Mass fraction] 97 % Donald Huang MD Work Phone: [facility] 08-22-2021 09:29-0400 Systolic blood pressure 127 mm[Hg] Donald Huang MD Work Phone: [facility] Encounters Encounter Date Encounter Type Care Provider Facility Start: 02-13-2024 End: 02-14-[address] [facility] Start: 11-13-2023 End: 11-13-2023 Emergency department patient visit [facility] Start: 11-05-2023 End: 11-06-2023 Emergency department patient visit YULISA TOLEDO [facility] Start: 09-06-2023 End: 09-07-2023 Emergency department patient visit KIAH Lisbeth PRO [facility] Start: 09-06-2023 End: 09-07-2023 Emergency department patient visit [facility] Start: 06-25-2023 End: 06-26-2023 ambulatory SATISH Westbrook BORIS [facility] Start: 06-24-2023 End: 06-26-2023 Emergency department patient visit ALISON PAREKH [facility] Start: 06-24-2023 End: 06-25-[address] [facility] Start: 05-27-2023 End: 05-27-2023 ambulatory Bessyjuanita Medina Other [facility] Other Start: 05-27-2023 Office outpatient vi sit 15 minutes Bessy Adam [facility] Start: 05-26-2023 ambulatory Hardy Briones acility:[facility] Start: 03-18-2023 End: 03-18-2023 ambulatory RADHA VANG Facility:[facility] Start: 03-18-2023 End: 03-18-2023 Patient encounter procedure Radha Vang MD Work Phone: Pulmonary Medicine Comment on above: Lung nodules (Primar y Dx); Moderate persistent asthma without complication; BMI 50.0-59.9, adult (HCC); Patient non adherence; Nodule of left lung; 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 ([facility]) Start: 03-10-2023 End: 03-12-2023 Evaluation and management of inpatient PHYSICIAN [facility] Work Phone: Start: 10-19-2021 End: 10-19-2021 Patient [...] m caregiver Donald Huang MD Work Phone: [facility] Start: 09-21-2021 End: 09-21-2021 ambulatory [facility] Facility: Start: 09-19-2021 Orders Only Donald Huang MD Work Phone: Thoracic Surgery Comment on above: Lung nodule (Primary Dx) Status post lung lukasz marilyn (Primary Dx) Start: 09-14-2021 End: 09-14-2021 Patient encounter procedure Donald Huang MD Work Phone: Thoracic Surgery Comment on above: Lung nodule (Primary Dx) Start: 09-12-2021 End: 09-12-2021 [place] [id number] Work Phone: Pre Anesthesia Comment on above: Pre-op evaluation (P rimary Dx); Lung nodule; Migraine without status migrainosus, not intractable, unspecified migraine type; Uncomplicated asthma, unspecified asthma severity, unspecified whether persistent; Former smoker; Class 3 severe obesity due to excess calories without serious comorbidity with body mass index (BMI) of 50.0 to 59.9 in adult (HCC); BMI 50.0-59.9, adult (HCC); PTSD (post-traumatic stress disorder); Bipolar 1 disorder ([facility]); Smoker Start: 09-12-2021 End: 09-12-2021 Preprocedural examination done Pac 3 Work Phone: Pre Anesthesia Start: 09-11-2021 End: 09-11-2021 ambulatory Pulm 2 Work Phone: Pulmonary Medicine Comment on above: Spirometry Start: 09-11-2021 End: 09-11-2021 Patient encounter procedure Pulm Lab [facility] Work Phone: WILFREDO Janina M[facility] Start: 09-11-2021 End: 09-11-2021 Patient encounter status [...] for other preprocedural examination DR FACUNDO WELSH [facility] Start: 06-08-[address] FACUNDO WELSH Facility :[facility] Start: 06-04-[address] FACUNDO WELSH Facility :[facility] Start: 06-01-2021 End: 06-02-[address] FACUNDO WELSH Facility:[facility] Start: 06-01-2021 End: 06-02-2021 Encounter for other preprocedural examination DR FACUNDO WELSH Facility:[facility] Start: 02-16-2021 End: 02-17-[address] FACUNDO WELSH Facility:[facility] Start: 12-28-2020 End: 12-28-2020 ambulatory BERNADETTE NULL Facility:[facility] Start: 11-24-[address] FACUNDO WELSH Facility : Start: 04-03-2017 End: 04-04-2017 Emergency department patient visit VLADIMIR ESTRADA Facility:[facility] Start: 03-04-2017 End: 03-05-2017 Ambulatory DEFAULT PHYSICIAN Facility:[facility] Procedures Date Procedure Procedure Detail Performing Clinician Start: 09-11-2021 Co diffusing capacity L massimo Huang MD Work Phone: Start: 08-13-[address] attenuation skull base mid-thigh Radha Vang MD Work Phone: H/O: surgery Status post lung surgery Donald Huang MD Work Phone: Plan of Treatment Date Care Activity Detail Author Start: 10-09-2030 Urine microalbumin profile [facility] Start: 03-12-2023 [facility] Start: 03-10-2023 Hospital admission [facility] Start: 01-17-2023 Covid-19 Vaccine ( season) Covid-19 Vaccine ( season) [facility] Start: 01-17-2023 Influenza vaccination INFLUENZA (#1) [facility] Start: 05-19-2022 DEPRESSION ASSESSMENT DEPRESSION ASS ESSMENT [facility] Start: 02-03-2022 HPV TESTING HPV TESTING [facility] Start: 01-17-2022 Influenza vaccination INFLUENZA (Sea son Ended) [facility] Start: 09-11-2021 End: 08-28-2022 aPTT in Platelet poor plasma by Coagulation assay ACTIVATED PTT Lab STAT Preoperative testing Expected: 09/11/2021 (Approximate), Expires: 08/28/2022 [facility] Work Phone: Comment on above: Expected: 09/11/2021 (Approximate), Expires: 08/28/2022 Start: 09-11-2021 End: 08-28-2022 CBC W Auto Differential panel - Blood CBC + DIFF Lab STAT Preoperative testing Expected: 09/11/2021 (Approximate), Expires: 08/28/2022 [facility] Work Phone: Comment on above: Expected: 09/11/2021 (Approximate), Expires: 08/28/2022 Start: 09-11-2021 End: 08-28-2022 Comprehensive metabolic 2000 panel - Serum or Plasma COMP METABOLIC PANEL Lab STAT Preoperative testing Expected: 09/11/2021 (Approximate), Expires: 08/28/2022 [facility] Work Phone: Comment on above: Expected: 09/11/2021 (Approximate), Expires: 08/28/2022 Start: 09-11-2021 End: 08-28-2022 CONFIRM BLOOD TYPE CONFIRM BLOOD TYPE Blood Bank Routine Preoperative testing Expected: 09/11/2021 (Approximate), Expires: 08/28/2022 [facility] Work Phone: Comment on above: Expected: 09/11/2021 (Approximate), Expires: 08/28/2022 Start: 09-11-2021 End: 08-28-2022 ECG COMPLETE ECG COMPLETE ECG Routine Preoperative testing Expected: 09/11/2021 (Approximate), Expires: 08/28/2022 [facility] Work Phone: Comment on above: Expected: 09/11/2021 (Approximate), Expires: 08/28/2022 Start: 09-11-2021 End: 08-28-2022 PT panel - Platelet poor plasma by Coagulation assay PROTHROMBIN TIME/PT Lab STAT Preoperative testing Expected: 09/11/2021 (Approximate), Expires: 08/28/2022 [facility] Work Phone: Comment on above: Expected: 09/11/2021 (Approximate), Expires: 08/28/2022 Start: 09-11-2021 End: 11-11-2021 TYPE AND SCREEN,30 DAY TYPE AND SCREEN,30 DAY Blood Bank Routine Preoperative testing Expected: 09/11/2021 (Approximate), Expires: 11/11/2021 [facility] Work Phone: Comment on above: Expected: 09/11/2021 (Approximate), Expires: 11/11/2021 Start: 09-11-2021 End: 08-28-2022 URINALYSIS, DIPSTICK ONLY URINALYSIS, DIPSTICK ONLY Lab STAT Preoperative testing Expected: 09/11/2021 (Approximate), Expires: 08/28/2022 [facility] Work Phone: Comment on above: Expected: 09/11/2021 (Approximate), Expires: 08/28/2022 Start: 08-28-2021 End: 08-28-2022 SARS-CoV-2 (COVID-19) RNA [Presence] in Respiratory specimen by SULLY with probe detection PRE-PROCEDURE & PRE-OPERATIVE COVID Microbiology Routine Preoperative testing Expected: 08/28/2021, Expires: 08/28/2022 [facility] Work Phone: Comment on above: Expected: 08/28/2021 , Expires: 08/28/2022 Start: 07-26-2021 COVID-19 VACCINE (4 - Moderna series) COVID-19 VACCINE (4 - Moderna series) [facility] Start: 01-17-2021 Influenza vaccination INFLUENZA (#1) [facility] Start: 02-03-2013 PAP TESTING PAP TESTING [facility] Start: 02-03-2011 Urine microalbumin profile DTAP,TDAP,TD (1 - Tdap) [facility] Start: 02-03-2010 ANNUAL 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 DISEASE VISIT ANNUAL PCP TEAM CHRONIC DISEASE VISIT [facility] Start: 02-03-2010 HEPATITIS C SCREENING HEPATITIS C SC OKSANA [facility] Start: 02-03-2010 HIV SCREENING HIV SCREENING [facility] Start: 2004 Adult depression screening assessment DEPRESSION SCREENING [facility] Start: 02-03-1998 PNEUMOCOCCAL (1 - PCV) PNEUMOCOCCAL (1 - PCV) [facility] Start: 02-03-1998 Pneumococcal vaccination Pneum ococcal Vaccine (1 - PCV) [facility] End: 04-16-2024 Ct thorax w/o contrast material CT CHEST WO IVCON Radiology Routine Lung nodules 1 Occurrences starting 03/18/2023 until 04/16/2024 [facility] Work Phone: Comment on above: 1 Occurrences starti ng 03/18/2023 until 04/16/2024 End: 09-27-2022 LUNG DIFFUSION CAPACITY (DLCO) LUNG DIFFUSION CAPACITY (DLCO) PFT Routine Preoperative testing 1 Occurrences starting 08/28/2021 until 09/27/2022 [facility] Work Phone: Comment on above: 1 Occurrences starti ng 08/28/2021 until 09/27/2022 LUNG DIFFUSION CAPAC ITY (DLCO) LUNG DIFFUSION CAPACITY (DLCO) PFT Routine Preoperative testing 09/11/2021 2:21 PM EDT [facility] Work Phone: Patient Education Depression, Ad ult (DC) Bipolar Disorder (DC) Suicide Prevention [facility] DC Instructions [facility] Work Phone: Patient referral [facility] Work Phone: Pulmonary rehabilita tion pro PULMONARY REHABILITATION PRO Procedures Routine Status post lung surgery Ordered: 09/19/2021 [facility] Work Phone: Comment on above: Ordered: 09/19/2021 End: 10-19-2022 Radiologic exam chest 2 views XR CHEST 2V FRONTAL/LAT Radiology Routine Lung nodule 1 Occurrences starting 09/19/2021 until 10/19/2022 [facility] Work Phone: Comment on above: 1 Occurrences starti ng 09/19/2021 until 10/19/2022 End: 09-27-2022 SPIROMETRY BASELINE ONLY SPIROMETRY BASELINE ONLY PFT Routine Preoperative testing 1 Occurrences starting 08/28/2021 until 09/27/2022 [facility] Work Phone: Comment on above: 1 Occurrences starti ng 08/28/2021 until 09/27/2022 [facility] Immunizations Immunization Date Immunization Notes Care Provider [facility] 03-11-2023 influenza, injectabl e, quadrivalent, preservative free PHYSICIAN NO [facility] 10-09-2020 tetanus toxoid, redu rosana diphtheria toxoid, and acellular pertussis vaccine, adsorbed Donald Huang MD Work Phone: [facility] 04-05-2019 influenza, injectabl e, quadrivalent, preservative free Donald Huang MD Work Phone: [facility] 06-12-2015 influenza, injectabl e, quadrivalent, preservative free Donald Huang MD Work Phone: [facility] 06-12-2015 measles, mumps and rubella virus vaccine Donald Huang MD Work Phone: [facility] 01-25-2004 measles, mumps and rubella virus vaccine Donald Huang MD Work Phone: [facility] 01-25-2004 tetanus toxoid, adsorbed Donald Huang MD Work Phone: [facility] 08-11-1996 diphtheria, tetanus toxoids and acellular pertussis vaccine, unspecified formulation Donald Huang MD Work Phone: [facility] 08-11-1996 hepatitis B vaccine, pediatric or pediatric/adolescent dosage Donald Huang MD Work Phone: [facility] 08-11-1996 measles, mumps and rubella virus vaccine Donald Huang MD Work Phone: [facility] 08-11-1996 poliovirus vaccine, unspecified formulation Donald Huang MD Work Phone: [facility] 01-26-1996 diphtheria, tetanus toxoids and acellular pertussis vaccine, unspecified formulation Donald Huang MD Work Phone: [facility] 01-26-1996 hepatitis B vaccine, pediatric or pediatric/adolescent dosage Donald Huang MD Work Phone: [facility] 07-28-1995 haemophilus influenz ae type b vaccine, conjugate unspecified formulation Donald Huang MD Work Phone: [facility] 07-28-1995 hepatitis B vaccine, pediatric or pediatric/adolescent dosage Donald Huang MD Work Phone: [facility] 07-28-1995 measles, mumps and rubella virus vaccine Donald Huang MD Work Phone: [facility] 07-28-1995 poliovirus vaccine, unspecified formulation Donald Huang MD Work Phone: [facility] 1992 diphtheria, tetanus toxoids and acellular pertussis vaccine, unspecified formulation Donald Huang MD Work Phone: [facility] 1992 haemophilus influenz ae type b vaccine, conjugate unspecified formulation Donald Huang MD Work Phone: [facility] 1992 poliovirus vaccine, unspecified formulation Donald Huang MD Work Phone: [facility] 1992 diphtheria, tetanus toxoids and acellular pertussis vaccine, unspecified formulation Donald Huang MD Work Phone: [facility] 1992 haemophilus influenz ae type b vaccine, conjugate unspecified formulation Donald Huang MD Work Phone: [facility] 1992 poliovirus vaccine, unspecified formulation Donald Huang MD Work Phone: [facility] Payers Date Payer Category Payer Self-pay [id number] 2019 Medicaid [employer] [id number] 2019-Present [phone] [address] [place] [address] Medicaid [id number] 2019 Medicaid [id number] 2017 Unknown [id number] 1992 Unknown [id number] [id number]. 593 1992 Unknown [id number] 2.16.840.1.372052.3.579.2. 593 1992 Unknown [id number] 2.16.840.1.315397.3.579.2. 593 1992 Unknown [id number] 2.16.840.1.182126.3.579.2. 593 1992 Unknown [id number] 2.16.840.1.984671.3.579.2. 593 1992 Unknown [id number] 2.16.840.1.332555.3.579.2. 593 1992 Unknown [id number] 2.16.840.1.432716.3.579.2. 593 1992 Unknown [id number] 2.16.840.1.796787.3.579.2. 1286 1992 Unknown [id number] 2.16.840.1.588137.3.579.2. 1286 1992 Unknown [id number] 2.16.840.1.668032.3.579.2. 1286 1992 Unknown [id number] 2.16.840.1.751688.3.579.2. 1286 1992 Unknown [id number] 2.16.840.1.432780.3.579.2. 1286 1959 Self-pay [id number] 1959 Unknown [id number] Private Health Insurance [employer] [id number] Unknown Unknown [facility] [id number] Unknown [id number] [id number]. 531 Unknown [id number] 2.16.840.1.005090.3.579.2. 531 Social History Date Type Detail Facility Start: 04-04-2020 [facility] Start: 03-10-2023 End: 12-03-2019 History of tobacco use Current smoker [facility] End: 12-03-2019 History of tobacco use Cigarette Smoker [facility] Start: 04-04-2020 End: 03-18-2023 Cigarettes smoked current (pack per day) - Reported 2 [facility] Start: 04-04-2020 End: 09-12-2021 Tobacco use and exposure Smokeless tobacco non-user [facility] Start: 1990 Sex Assigned At Female [facility] Start: 08-12-2021 End: 09-18-2021 Exposure to SARS-CoV-2 (event) Not sure [facility] Start: 09-12-2021 Tobacco smoking stat us NHIS Smokes tobacco daily [facility] Start: 09-12-2021 End: 10-19-2021 Alcohol intake Ex-drinker (finding) [facility] Start: 04-04-2020 End: 03-18-2023 Tobacco use panel [facility] National Score (1-10 0), lower number is lower risk Not on file [facility] Start: 04-04-2020 Gender identity Identifies as female gender (finding) [facility] Start: 04-04-2020 Sexual orientation Choose not to dis close [facility] Goals Date Patient Goal Desired Activity /State Functional Status Date Assessment Result Facility 03-12-2023 Functional status Patient at [facility] Work Phone: Mental Status Date Assessment Result Facility 03-12-2023 Cognitive function Cognitive Sta tus Patient at Baseline [facility] Work Phone: Clinical Notes 08-13-2021 to [...] compresses or warm soaks of the finger. [employer] Other 10-31-2023 NoteHNO ID: [id number] Author: Radha Vang MD Service: ? Author [...] 18, 2023 TIME: 11:33 AM PAGER/CONTACT #: [phone]* Patient Instructions* Radha Vang MD - 03/18/2023 11:48 AM EDT Please take the symbicort inhaler two puffs twice daily. Take albuterol as needed. Radha Vang MD With questions or concerns, please call the following: [place] [facility] [phone] Press Option #2 for pulmonary office documented [facility] History of Present illness Narrative* Radha Vang [...] lobe wedge resection, robotic-assisted on 09/17/21. Surgery wasDrEmilie Huang. Resolved issue. SUBJECTIVE CHIEF COMPLAINT: asthma [...] 18, 2023 TIME: 11:33 AM PAGER/CONTACT #: [phone] documented in [facility] Discharge summary Author Hardy iglesias [facility] March 12, 2023 7:44am Note Date/Time March 12, 2023 7 :41am [facility] [address] [place] [address] Discharge Summary Signed Patient: Sandee Null MR#: [id number] : 1990 Acct:[id number] Age/Sex: 33 / F Adm Date: 3 Loc: Room: [address] [place] [address]: Jus Santos MD Copies to: [...] self or stop treatment, but to call Mobile Crisis, 911 or come to the nearest emergency [...] Instructions: Important Contact Information You can call [facility] at [phone] any time day or night if you have emergent questions or question regarding discharge instructions. If at any time you are feeling an increase inyour psychiatric symptoms, call your physician or behavioral healthcare provider. If any time you have thoughts of harming yourself or others contact one of the following: Call 9-8-8 (available 09/12) Crisis Text Line (available 09/12) text 4HOPE to [phone] [facility] Hope Line (available 8 a.m. Midnight) call [phone] ([phone]) Prescriptions: New trazodone 50 mg Tablet 50 [...] states next dose due 03/17. Follow Up: [facility] Services [Other] (Sees Dr. 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 ) Documented By: Hardy Jones MD 3 [id number] Signed By: <Electronically signed by Hardy Jones MD> 03/12/23 0744 [facility] Work Phone: 1(882) 462-620710-25-2023 Hospital Discharge instructions Additional Instructions Important Contact Information You can call [facility] at [phone] any time day or night if you have emergent questions or question regarding discharge instructions. If at any time you are feeling an increase in your psychiatric symptoms, call your physician or behavioral healthcare provider. If any time you have thoughts of harming yourself or others contact one of the following: Call 9-8-8 (available 09/12) Crisis Text Line (available 09/12) text 4HOPE to [phone] [facility] Hope Line (available 8 a.m. Midnight) call [phone] ([phone]) Regular Diet [facility] Work Phone: 1(412) 659-577510-24-2023 Progress note Author Hardy iglesias [facility] March 11, 2023 10:45am Note Date/Time March 11, 2023 8 :58am [facility] [address] [place] [address] Psychiatry Progress Note Signed Patient: Sandee Null MR#: [id number] : 1990 Acct:[id number] Age/Sex: 33 / F Adm Date: 3 Loc: 1S Room: 7Z4453-3 Type : ADM IN Attending Dr: Jus [...] <Electronically signed by Hardy Jones MD> 03/11/23 1045 [facility] Work Phone: 1(822) 101-226010-23-2023 History and physical note Author Hardy iglesias [facility] March 10, 2023 1:17pm Note Date/Time March 10, 2023 8 :25am [facility] [address] [place] [address] Psychiatry H&P Signed Patient: Sandee Null MR#: [id number] : 1990 Acct:[id number] Age/Sex: 33 / F Adm Date: 3 Loc: 1S Room: [address] [place] [address] Type: ADM IN Attending Dr: Jus Santos [...] Denies hallucinations Insight: fair Judgment: fair [facility] Medical History (Updated 03/10/23 @ 08:28 [...] <Electronically signed by Hardy Jones MD> 03/10/23 1311 [facility] Work Phone: 1(946) 748-855306-03-2022 History of Present illness Narrative* Erick Trujillo [...] Vang MD Follow up with Thoracic Surgery PRPop Trujillo PA-C Thoracic Surgery [id number] DATE: October 19, 2021 TIME: 9:34 AM documented in this encounter[facility] Miscellaneous Notes* Telephone Encounter - Donald Huagn MD - 09/22/2021 4:48 PM EDT Patient called asking for narcotic pain medication. She did not take any home with her at discharge. Pain has increased today. I sent in a prescription for oxycodone 5 mg q 6 hrs prn (#28). documented in this encounterSelect [facility]05-04-2022 NoteHNO ID: [id number] Author: Misa Carrasco ([employer]) Service: Pharmacy Author Type: ? Type: Plan [...] or your Primary Care Provider. Misa Carrasco ([employer]) PAGER: [phone] September 19, 2021 5:07 [facility]05-04-2022 NoteHNO ID: [id number] Author: Beena Brumfield [facility] Service: Pharmacy Author Type: Pharmacist Type: Plan of Care Filed: 09/19/2021 4:59 PM Note Text: PHARMACY MEDICATION REVIEW Patient Name: Sandee Null : 1990 The following medications were updated within the COMIC BOOK DESIGNER medication list: Medications ADDED to COMIC BOOK DESIGNER medication list ? none Medications CHANGED on COMIC BOOK DESIGNER medication list ? Symbicort - Pt reports using BID. Medications REMOVED from COMIC BOOK DESIGNER medication list ? Spiriva - Pt reports not taking Additional comments: See below. Pt reports adherence to all medications except Spiriva. Pt states that the powder in the inhaler makes her gag, so decided to discontinue. MD not aware. Pt also reports needing a refill on Symbicort. The below information represents the best possible medication history: Yes Medication history completed by: graduate student: Fariba Benoit Source of history: Patient: Reliability of source: Appears reliable, clearly identified: Medication name, Medication dose, Medication route and Medication frequency and Pharmacy records: Surescripts. Medication nonadherence identified: No barriers noted Reconciliation completed: Yes All COMIC BOOK DESIGNER medications addressed by LIP Patient interested in Bedside Delivery Services or using OP Pharmacy at discharge? Yes. Discharge Pharmacy Updated Preferred outpatient pharmacy: [facility] Allergies: Latex Rash Levofloxacin Other: See [...] on 09/14/2021 Facility-Administered Medications: None Fariba Benoit, Tow Bar Driver September 19, 2021 10:48 AM Addendum The medication history completed by the video game script writer has been reviewed; patient's prior to admission medication list has been updated. Changes and additions to the details in the above note are indicated by and italics. Beena Brumfield, PharmD, [facility] September 19, 2021 4:59 [facility]05-04-2022 NoteHNO ID: [id number] Author: Rob Scott PA-C Service: Cardiac Surgery Author Type: Physician Turkey Pinner Type: Procedures Filed: 09/19/2021 9:12 AM Note [...] on dressing - Well-tolerated, no complications [facility]05-03-2022 NoteHNO ID: [id number] Author: Pj Rendon DO Service: Anesthesiology Author [...] September 18, 2021 TIME: 8:59 AM CSN: [id number] NoteHNO ID: [id number] Author: Pj Rendon DO Service: Anesthesiology Author [...] September 18, 2021 TIME: 8:58 AM CSN: [id number] NoteHNO ID: [id number] Author: Pj Rendon DO Service: Anesthesiology Author Type: Resident Type: Anesthesia Procedure Notes Filed: 09/18/2021 8:55 AM Note Text: ANESTHESIOLOGY PROCEDURE NOTE Airway General Information Procedure Start Time/Medication Administration: 09/18/2021 8:01 AM Patient location during procedure: OR Timeout Performed Pre-procedure: timeout performed Consent Obtained: Yes 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, care meat team member and patient Staffing Anesthesiologist: Eliezer Lr MD [...] September 18, 2021 TIME: 8:54 AM CSN: [id number] NoteHNO ID: [id number] Author: Noel Grover DO Service: Anesthesiology Author Type: Anesthesiologist Type: Anesthesia Procedure Notes Filed: 09/18/2021 7:24 AM Note Text: ANESTHESIOLOGY PROCEDURE NOTE Peripheral Nerve Block General Information Procedure Start Time/Medication Administration: 09/18/2021 7:09 AM Procedure End time: 09/18/2021 7:14 AM Patient location during procedure: pre-op Timeout Performed Pre-procedure: timeout performed Consent Obtained: Yes 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, care meat team member and patient Reason for block: post-op pain [...] September 18, 2021 TIME: 7:23 AM CSN: [id number] Instructions* Patient Instructions* Donald Huang MD - 09/14/2021 9:41 AM EDT OR scheduled Saturday, September 18, 2021. documented [facility] History of Present illness Narrative* Donald Huang [...] left majorfissure on a chest CT in [facility] in 09/2015. She was unaware that she [...] patient's available diagnotic studies, including: PFT 09/11/21: [facility] [address] [place] [address] Test Date: 2021-09-11 Pat Name: SANDEE NULL Department: Room: Gender: Female Auger Mill Operator: : 1990 Requested By: Order Number: [id number] Reading MD: Interpretive Statements ATS/ERS acceptability and repeatability standards for spirometry met. ATS/ERS acceptability and repeatability standards for DLCO met. DLCO is not hemoglobin corrected. //RK IMPRESSION: Site: ID: [id number] Name: SANDEE NULL Visit Date: 09/11/2021 Doctor: Auger Mill Operator: Milvia Holliday Age: 31 Date of : [...] FEF75 (L/sec) 1.51 0.79 2.63 0.95 63 JPO88-00 (L/sec) 3.50 2.26 4.93 2.27 64 PEF [...] major fissure on a chest CT in [facility] in 09/2015. She was unaware that she [...] have been signed and are in the [facility] EMR. The patient's operation is scheduled on [...] hesitate to contact me. documented in this encounter[facility] History of Past illness Narrative* Problem Noted Date Resolved Date Former smoker 09/12/2021 09/12/2021 Bipolar 1 disorder 09/12/2021 09/12/2021 documented as of this encounter (statuses as of 09/12/2021) [facility] History of Past illness Narrative* Problem Noted Date Resolved Date Former smoker 09/12/2021 09/12/2021 Bipolar 1 disorder 09/12/2021 09/12/2021 documented as of this encounter (statuses as of 09/14/2021) [facility] History of Past illness Narrative* Problem Noted Date Resolved Date Former smoker 09/12/2021 09/12/2021 Bipolar 1 disorder 09/12/2021 09/12/2021 documented as of this encounter (statuses as of 09/19/2021) [place] [id number] History of Past illness Narrative* Problem Noted Date Resolved Date Former smoker 09/12/2021 09/12/2021 Bipolar 1 disorder 09/12/2021 09/12/2021 documented as of this encounter (statuses as of 09/21/2021) [place] [address]-27-2022 History of Past illness Narrative* Problem Noted Date Resolved Date Former smoker 09/12/2021 09/12/2021 Bipolar 1 disorder 09/12/2021 09/12/2021 documented as of this encounter (statuses as of 09/22/2021) [facility] History of Past illness Narrative* Problem Noted Date Resolved Date Former smoker 09/12/2021 09/12/2021 Bipolar 1 disorder 09/12/2021 09/12/2021 documented as of this encounter (statuses as of 10/19/2021) [facility] History of Past illness Narrative* Problem Noted Date Diagnosed Date Resolved Date Former smoker 09/12/2021 09/12/2021 Bipolar 1 disorder 09/12/2021 documented as of this encounter (statuses as of 03/18/2023) [facility] Instructions* Patient Instructions* Geovanna Dickinson APRN.MACHINE RIGGER - 09/12/2021 12:36 PM EDT PATIENT PREOPERATIVE INSTRUCTIONS Dr Donald Huang has scheduled you for your procedure at this surgery center: [facility]: [phone] --[phone] [place] [address]. Please check in on the1st floor at [...] Procedures: - YOU MUST HAVE A RESPONSIBLE ASSOCIATE CURATOR TAKE YOU HOME. A FRAME OPENER OR SALVAGE LABORER CANNOT BE MADE A RESPONSIBLE ASSOCIATE CURATOR. - We recommend that a responsible person [...] Advance Directive, please fax a copy to [phone] or email to for it to be [...] your chart that day. documented in this encounter[facility] History and physical note * Geovanna Dickinson APRN.JONA - 09/12/2021 12:30 PM EDT HISTORY AND PHYSICAL EXAMINATION SERVICE DATE: 09/12/2021 SERVICE TIME: 12:28 PM PRIMARY CARE PHYSICIAN: Qasim Daely MD, MD REASON FOR VISIT: Sandee Null [...] famotidine (PEPCID) 10 mg tablet 20 mg. Cvqahpmu-Kd-Yus-Fe-FA tab Take 1 tablet by mouth. promethazine (PHENERGAN) 12.5 mg tablet Take 12.5 mg by mouth three times daily as needed. tiotropium (SPIRIVA WITH HANDIHALER) 18 mcg inhalation capsule Inhale 1 capsule as instructed once daily. Use with HandiHaler. Medication Comments documented by Geovanna Dickinson APRN.MACHINE RIGGER on 09/12/2021 at 0909. Pepcid if normally [...] requiring medication, no history of angina, CHF, VT, cardiac surgery or stents. Denies rest pain, gangrene or revascularization/amputation for PVD. No history of cardiovascular symptoms or problems. GI: Positive for GERD, Negative for Abdominal pain, Difficulty swallowing, Liver disease : No history of dysuria, frequency or incontinence,, stones or chronic kidney disease ROAD MARKER: Negative for abnormal vaginal bleeding, abnormal vaginal [...] 2021 TIME: 12:28 PM documented in this encounterSelect [facility] History of Present illness Narrative* Milvia Holliday RRT - 09/11/2021 2:42 PM EDT PULM FUNCTION SMARTBLOCK: Provider: Donald Huang MD Assisting Tech: Milvia Holliday RRT Spirometry: 1 DLCO: 1 System: [id number] documented in this encounterSelect [facility]-06-2022 NoteHNO ID: [id number] Author: Donald Huang MD Service: ? Author [...] major fissure on a chest CT in [facility] in 09/2015. She was unaware that she [...] mg intramuscularly at bedtime as needed. - Kwonrnxm-Hl-Nrb-Fe-FA tab Take 1 tablet by mouth. - [...] lower leg: No vincent (more content not included)...[facility] 08-22-2021 Instructions* Patient Instructions* Destiny Huang - 08/22/2021 9:38 AM EDT Please call us with how you would like to proceed. documented in this encounterSelect [facility] History of Present illness Narrative* Donald Huang [...] left majorfissure on a chest CT in [facility] in 09/2015. She was unaware that she [...] 0.3 mg intramuscularly at bedtime as needed. Ppeskihw-Mf-Ooc-Fe-FA tab Take 1 tablet by mouth. promethazine [...] DATE OF EXAM: Apr 05 2021 11:52AM [facility] 0541 - CT CHEST WO IVCON / [...] upper abdomen appear unremarkable. No adrenal mass. Film Touch Up Inspector (topogram) images: No additional findings. Spirometry 04/04/20: [facility] [address] [place] [address] Test Date: 2020-04-04 Pat Name: SANDEE NULL Department: Room: Gender: Female Auger Mill Operator: Gypsy RazaEmilie : 1990 Requested By: Order Number: [id number] Reading MD: Tamar Sims MD Interpretive Statements [...] 103 89.0 FIVC L 4.23 4.32 2.0 IUF81-23% L/s 2.08 2.31 3.55 4.99 58.5 3.39 95.3 62.9 EOS359% sec 12.32 9.33 -24.3 FETPEF sec 0.06 [...] (Martinez GLI 2012): Respiratory Journal 2012; 40: 8360-6993, 2012. Tech Comment: IMPRESSIONS: Sandee Null is a very pleasant 31-year old female who is a former 10+ pack year smoker and who has severe asthma. She was found to have a 4 mm left lower lobe lung nodule near the left major fissure on a chest CT in [facility] in 09/2015. She was unaware that she [...] hesitate to contact me. documented in this encounterSelect [facility]-30-2022 Miscellaneous Notes* Telephone Encounter - Radha Vang MD - 08/15/2021 1:12 PM EDT Discussed with Ms. Null that IR does not think that this nodule is easily reachable by IR. Shestill wants to a surgeon about possible excision of nodule. I will place a referral to thoracic surgery. documented in this encounterSelect [facility]-30-2022 Miscellaneous Notes* Telephone Encounter - Hannah Myers RN - 08/15/2021 9:[address] Vang paged to notify of lung biopsy request denial. Per Dr. Mena, Unable to get to it dueto location. Call back number and physician name provided in page. documented in this encounterSelect [facility]-28-[facility]22 History of Present illness Narrative* Kalyn Phillips [...] radiation safety can be found usingthis link: [email or web address] SIGNATURE: BOLIVAR Rodriguez) PATIENT NAME: Sandee Null DATE: August 13, 2021 TIME: 10:23 AM PAGER/CONTACT #: [facility]* Diagnosis Nodule of left lung- Primary Solitary pulmonary nodule documented in [facility] encounter [facility]* Diagnosis Lung nodule- Primary Solitary pulmonary nodule documented [facility]* Diagnosis Preoperative testing- Primary Preoperative examination, unspecified Lung nodule Solitary pulmonary nodule Lung nodule Solitary pulmonary nodule documented in this [facility]* Diagnosis Preoperative testing Preoperative examination, unspecified Lung nodule Solitary pulmonary nodule documented [facility]* Diagnosis Preoperative testing Preoperative examination, unspecified Lung nodule Solitary pulmonary nodule documented [facility]* Diagnosis Pre-op evaluation- Primary Preoperative [...] (BMI) of 50.0 to 59.9 in adult ([facility]) BMI 50.0-59.9, adult ([facility]) Body Mass Index 50.0-59.9, adult PTSD (post-traumatic stress disorder) Posttraumatic stress disorder Bipolar 1 disorder ([facility]) Bipolar I disorder, most recent episode (or current) unspecified Smoker Tobacco use disorder Lung nodule Solitary pulmonary nodule documented in [facility]* Diagnosis Lung nodule- Primary Solitary pulmonary nodule Lung nodule Solitary pulmonary nodule documented in [facility]* Diagnosis Lung nodule- Primary Solitary pulmonary nodule documented in [facility]* Diagnosis Status post lung surgery- Primary Other postprocedural status documented in [facility]* Diagnosis Acute post-operative pain- Primary documented in [facility]* Diagnosis Acute post-operative pain documented in [facility]* Diagnosis Left lower lobe pulmonary nodule- Primary documented in [facility]* Diagnosis Primary malignant neoplasm (HCC) Other malignant neoplasm without specification of site documented in this encounter [facility]* Diagnosis Onset Date Resolution Status Bipolar disorder acute Major depressive disorder ac eugenia Suicidal ideations acute [facility] Work Phone: Evaluation note* Diagnosis Lung nodules- Primary Other nonspecific abnormal finding of lung field Moderate persistent asthma without complication Unspecified asthma BMI 50.0-59.9, adult ([facility]) Body Mass Index 50.0-59.9, adult Patient non adherence Personal history of noncompliance with medical treatment, presenting hazards to health Nodule of left lung Solitary pulmonary nodule 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 ([facility]) documented in this encounter [facility] general Narrative - Reported* Type Description Date Medical History asthma Medical History PTSD Medical History depression Medical History anxiety Hospitalization History dehydration Hospitalization History child [facility] Other Reason for referral (narrative)* Outpatient Procedure (Routine) - Pending Review Specialty Diagnoses / Procedures Referred By Ruel t Referred To Contact [facility] Diagnoses Preoperative testing Procedures ECG COMPLETE ECG ROUTINE ECG W/LEAST 12 LDS W/I&[place] [address] [place] [address] [facility] [place] [address] [place] [address] Referral ID Status Reason Start Date Expiration Date Visits Requested Visits Authorized [id number] Pending Review Auto-Generat ed Referral 09/11/2021 08/28/2022 1 1 * Outpatient Procedure (Routine) - Pending Review Specialty Diagnoses / Procedures Referred By Ruel t Referred To Contact [facility] Diagnoses Preoperative testing Procedures SPIROMETRY BASELINE ONLY SPMTRY W/VC EXPIRATORY AYAKA W/[place] [address] [place] [address] Respiratory [place] [address] [place] [address] Referral ID Status Reason Start Date Expiration Date Visits Requested Visits Authorized [id number] Pending Review Auto-Generat ed Referral 08/28/2021 09/27/2022 1 1 * Outpatient Procedure (Routine) - Pending Review Specialty Diagnoses / Procedures Referred By Contac t Referred To [facility] Diagnoses Preoperative testing Procedures LUNG DIFFUSION CAPACITY (DLCO) [place] [address] [place] [address] Res[facility] [place] [address] [place] [address] Referral ID Status Reason Start Date Expiration Date Visits Requested Visits Authorized [id number] Pending Review Auto-Generat ed Referral 08/28/2021 09/27/2022 1 1 [facility] for referral (narrative)* Diagnostic Procedure Only (Routine) - Closed Specialty Diagnoses / Procedures Referred By Ruel t Referred To Contact MOLECULAR & FUNCTIONAL IMAGING Diagnoses Primary malignant neoplasm (HCC) Procedures NM PET/CT SKULL-THIGH INITIAL TUMOR IMAGING PET W/[place] [address] [place] [address] Molecular & Functional Imaging [address] [place] [address] Referral ID Status Reason Start Date Expiration Date V isits Requested Visits Authorized Closed Auto-Generate d Referral 04/06/2021 10/01/2021 2 2 T [facility] for visit Narrative* Diagnostic Procedure Only (Routine) - Closed Specialty Diagnoses / Procedures Referred By Ruel schmitt Referred To Contact MOLECULAR & FUNCTIONAL IMAGING Diagnoses Primary malignant neoplasm (HCC) Procedures NM PET/CT SKULL-THIGH INITIAL TUMOR IMAGING PET W/[place] [address] [place] [address] Molecular & Functional Imaging [address] [place] [address] Referral ID Status Reason Start Date Expiration Date V isits Requested Visits Authorized Closed Auto-Generate d Referral 04/06/2021 10/01/2021 2 2 [facility] Summary Purpose Family History No Family History Records FoundNo Family History Records FoundNo Family History Records FoundNo Family History Records FoundNo Family History Records FoundNo Family History Records FoundNo Family History Records FoundNo Family History Records FoundNo Family History Records FoundNo Family History Records Found Advance Directives No Advanced Directives Records FoundDocuments on File Type Date Recorded Patient Glass Scullion Expl anation Advance Directive(s) 07/24/2019 10:21 PM Documents on File Type Date Recorded Patient Glass Scullion Expl anation Advance Directive(s) 07/24/2019 10:21 PM Documents on File Type Date Recorded Patient Glass Scullion Expl anation Advance Directive(s) 08/31/2021 4:56 PM [...] Date/ Time Advance Directives No September 12, 2 018 11:56am Reason for Referral Specialty Diagnoses / Procedures Referred By Contac t Referred To Contact Diagnoses Nodule of left lung Procedures CONSULT [place] [address] [place] [address] Referral ID Status Reason Start Date Expiration Date Visits Requested Visits Authorized [id number] Ref Not Required PCP Requested Referral 08/15/2021 08/15/2022 1 1 Specialty Diagnoses / Procedures Referred By Contac t Referred To Contact Radha Vang MD [address] [place] [address] Referral ID Status Reason Start Date Expiration Date Visits Re quested Visits Authorized [id number] Closed 1 1 Specialty Diagnoses / Procedures Referred By Contac t Referred To Contact CT IMAGING Diagnoses Lung nodules Procedures CT CHEST WO IVCON DIAGNOSTIC COMPUTED TOMOGRAPHY THORAX W/[place] [address] [place] [address] [address] [facility] [place] [address] Referral ID Status Reason Start Date Expiration Date Visits Requested Visits Authorized [id number] Authorized Auto-Generat ed Referral 3 04/16/2024 1 1 Chief Complaint and Reason for Visit Chief Complaint Suicidal Ideation Reason for Visit Bipolar disorder Major depressive disorder Suicidal ideations Additional Source Comments INFORMATION SOURCE (unrecogn ized section and content) DATE CREATED AUTHOR 11/11/2017 [facility] DATE CREATED AUTHOR AUTHOR'S ORGANIZ ATION 11/11/2017 [facility] DATE CREATED AUTHOR AUTHOR'S ORGANIZ ATION 04/14/2020 [facility] DATE CREATED AUTHOR AUTHOR'S ORGANIZ ATION 04/22/2020 [facility] DATE CREATED AUTHOR AUTHOR'S ORGANIZ ATION 08/16/2021 [facility] DATE CREATED AUTHOR AUTHOR'S ORGANIZ ATION 09/22/2021 [facility] DATE CREATED AUTHOR AUTHOR'S ORGANIZ ATION 09/24/2021 [facility] DATE CREATED AUTHOR AUTHOR'S ORGANIZ ATION 03/19/2023 [facility] DATE CREATED AUTHOR AUTHOR'S ORGANIZ ATION 02/14/2024 [facility] DATE CREATED AUTHOR AUTHOR'S ORGANIZ ATION 02/14/2024 [facility] Source Comments (unrecognize d section and content) In the event this informatio n is protected by the Federal Confidentiality of Alcohol and Drug Abuse Patient Records regulations: The Federal rules restrict any use of the information to criminally investigate or prosecute any alcohol or drug abuse patient.[facility] the event this information is protected by the Federal Confidentiality of Alcohol and Drug Abuse Patient Records regulations: The Federal rules restrict any use of the information to criminally investigate or prosecute any alcohol or drug abuse patient.[facility] the event this information is protected by the Federal Confidentiality of Alcohol and Drug Abuse Patient Records regulations: The Federal rules restrict any use of the information to criminally investigate or prosecute any alcohol or drug abuse patient.[facility] Cincinnati[facility] the event this information is protected by the Federal Confidentiality of Alcohol and Drug Abuse Patient Records regulations: The Federal rules restrict any use of the information to criminally investigate or prosecute any alcohol or drug abuse patient.[facility] Cincinnati[facility] the event this information is protected by the Federal Confidentiality of Alcohol and Drug Abuse Patient Records regulations: The Federal rules restrict any use of the information to criminally investigate or prosecute any alcohol or drug abuse patient.[facility] the event this information is protected by the Federal Confidentiality of Alcohol and Drug Abuse Patient Records regulations: The Federal rules restrict any use of the information to criminally investigate or prosecute any alcohol or drug abuse patient.[facility] the event this information is protected by the Federal Confidentiality of Alcohol and Drug Abuse Patient Records regulations: The Federal rules restrict any use of the information to criminally investigate or prosecute any alcohol or drug abuse patient.[facility] Cincinnati[facility] the event this information is protected by the Federal Confidentiality of Alcohol and Drug Abuse Patient Records regulations: The Federal rules restrict any use of the information to criminally investigate or prosecute any alcohol or drug abuse patient.[facility] the event this information is protected by the Federal Confidentiality of Alcohol and Drug Abuse Patient Records regulations: The Federal rules restrict any use of the information to criminally investigate or prosecute any alcohol or drug abuse patient.[facility] the event this information is protected by the Federal Confidentiality of Alcohol and Drug Abuse Patient Records regulations: The Federal rules restrict any use of the information to criminally investigate or prosecute any alcohol or drug abuse patient.[facility] the event this information is protected by the Federal Confidentiality of Alcohol and Drug Abuse Patient Records regulations: The Federal rules restrict any use of the information to criminally investigate or prosecute any alcohol or drug abuse patient.[facility] the event this information is protected by the Federal Confidentiality of Alcohol and Drug Abuse Patient Records regulations: The Federal rules restrict any use of the information to criminally investigate or prosecute any alcohol or drug abuse patient.[facility]In the event this information is protected by the Federal Confidentiality of Alcohol and Drug Abuse Patient Records regulations: The Federal rules restrict any use of the information to criminally investigate or prosecute any alcohol or drug abuse patient.[facility]In the event this information is protected by the Federal Confidentiality of Alcohol and Drug Abuse Patient Records regulations: The Federal rules restrict any use of the information to criminally investigate or prosecute any alcohol or drug abuse patient.[facility]In the event this information is protected by the Federal Confidentiality of Alcohol and Drug Abuse Patient Records regulations: The Federal rules restrict any use of the information to criminally investigate or prosecute any alcohol or drug abuse patient.[facility] the event this information is protected by the Federal Confidentiality of Alcohol and Drug Abuse Patient Records regulations: The Federal rules restrict any use of the information to criminally investigate or prosecute any alcohol or drug abuse patient.[facility]In the event this information is protected by the Federal Confidentiality of Alcohol and Drug Abuse Patient Records regulations: The Federal rules restrict any use of the information to criminally investigate or prosecute any alcohol or drug abuse patient.[facility] Reason for Visit (unrecogniz ed section and content) Reason Comments Patient Update Reason Comments Results Reason Comments New Patient Reason Comments Spirometry Specialty Diagnoses / Procedures Referred By Contac t Referred To Contact [facility] Diagnoses Preoperative testing Procedures SPIROMETRY BASELINE ONLY SPMTRY W/VC EXPIRATORY AYAKA W/[place] [address] [place] [address] [facility] [place] [address] [place] [id number] Referral ID Status Reason Start Date Expiration Date V isits Requested Visits Authorized [id number] Closed Auto-Generate d Referral 08/28/2021 09/27/2022 1 1 Specialty Diagnoses / Procedures Referred By Contac t Referred To Contact [facility] Diagnoses Preoperative testing Procedures LUNG DIFFUSION CAPACITY (DLCO) [place] [address] [place] [address] [facility] [address] [place] [id number] Referral ID Status Reason Start Date Expiration Date V isits Requested Visits Authorized [id number] Closed Auto-Generate d Referral 08/28/2021 09/27/2022 1 1 Reason Comments Established Patient Sign consent surgery 09/18/[address] Huang Reason Comments Post Op 4 week CXR prior Lukasz marilyn with Dr. Huang 09/18/21 Reason Comments Radiology NM Specialty Diagnoses / Procedures Referred By Contac t Referred To Contact [facility]LEC[facility] FUNCTION[facility]ING Diagnoses Primary malignant neoplasm (HCC) Procedures NM PET/CT SKULL-THIGH INITIAL TUMOR IMAGING PET W/[place] [address] [place] [address] Molecular & Functional Imaging [address] [place] [address] Referral ID Status Reason Start Date Expiration Date V isits Requested Visits Authorized [id number] Closed Auto-Generate d Referral 04/06/2021 10/01/2021 2 2 Reason Comments Asthma Care Teams (unrecognized sec tion and content) Card Assembler Relationship Specialty [place] [address] [place] [address] Referring Pulmonary and Critical Care Medicine 08/15/21 Card Assembler Relationship Specialty [place] [address] [place] [address] Referring Pulmonary and Critical Care Medicine 08/15/21 Card Assembler Relationship Specialty [place] [address] [place] [address] Referring Pulmonary and Critical Care Medicine 08/15/21 Card Assembler Relationship Specialty Start Date End Date Qasim Daley MD [address] [facility] [place] [address] PCP - General Internal Medicine 08/31/21 [place] [address] [place] [address] Referring Pulmonary and Critical Care Medicine 08/15/21 Card Assembler Relationship Specialty Start Date End Date Qasim Daley MD [address] [facility] [place] [address] PCP - General Internal Medicine 08/31/21 [place] [address] [place] [address] Referring Pulmonary and Critical Care Medicine 08/15/21 Card Assembler Relationship Specialty Start Date End Date Qasim Daley MD [address] [facility] [place] [address] PCP - General Internal Medicine 08/31/21 [place] [address] [place] [address] Referring Pulmonary and Critical Care Medicine 08/15/21 Card Assembler Relationship Specialty Start Date End Date Qasim Daley MD [address] [facility] [place] [address] PCP - General Internal Medicine 08/31/21 [place] [address] [place] [address] Referring Pulmonary and Critical Care Medicine 08/15/21 Card Assembler Relationship Specialty Start Date End Date Qasim Daley MD [address] [place] [address] PCP - General Internal Medicine 08/31/21 [place] [address] [place] [address] Referring Pulmonary and Critical Care Medicine 08/15/21 Card Assembler Relationship Specialty Start Date End Date Qasim Daley MD [address] [place] [address] PCP - General Internal Medicine 08/31/21 [place] [address] [place] [address] Referring Pulmonary and Critical Care Medicine 08/15/21 Card Assembler Relationship Specialty Start Date End Date Qasim Daley MD [address] [place] [place] [address] PCP - General Internal Medicine 08/31/21 [place] [address] [place] [address] Referring Pulmonary and Critical Care Medicine 08/15/21 Card Assembler Relationship Specialty Start Date End Date Qasim Daley MD [address] [place] [address] PCP - General Internal Medicine 08/31/21 [place] [address] [place] [address] Referring Pulmonary and Critical Care Medicine 08/15/21 Team Status: Active Member Role Status Dates PHYSICIAN NO FAMILY Primary Care Provider Active Team Status: Inactive Member Role Status Dates PHYSICIAN NO FAMILY Primary Care Provider Active Jus Santos MD Admit Provider, Attending Provider Active Card Assembler Relationship Specialty Start [place] [address] [place] [address] PCP - General Internal Medicine 08/31/21 [place] [address] [place] [address] Referring Pulmonary and Critical Care Medicine 08/15/21 [...] BE BASED ON THE PRIMARY CLINICAL RECORDS. [facility]. provides no warranty or guarantee of the accuracy or completeness of information in this document.
--- NOTE | 2024-03-12 22:57 | ED.SOB1 ---
HPI - SOB/Dyspnea General Chief Complaint: Shortness of Breath/Dyspnea Stated Complaint: DIFF BREATHING, WHEEZING HX ASTHMA Time Seen by Provider: 03/12/24 22:51 Source: patient Mode of arrival: walk-in Limitations: no limitations History of Present Illness HPI Narrative: history of asthma. states she is normally followed by Pulmonary but can't now because she doesn't have insurance. States she contacted [facility] mid January. Was seen here and treated with steroids. States she improved but once the steroids ran out she was again short of breath. Was then admitted to [facility] for a couple of days and discharged on prednisone taper. Ran out of the taper about a week ago and now short of breath again. voice is hoarse. states voice comes and goes. Throat is not sore. No fever. MD elicited complaint: shortness of breath Related Data Home Medications ?Medication ?Instructions ?Recorded ?Confirmed albuterol sulfate 90 mcg/actuation 2 puff inhalation Q6H PRN 03/10/23 03/13/24 aerosol inhaler shortness of breath or wheezing ipratropium 0.5 mg-albuterol 3 mg 3 ml inhalation Q4H PRN shortness 03/10/23 03/13/24 (2.5 mg base)/3 mL nebulization of breath or wheezing soln Allergies Allergy/AdvReac Type Severity Reaction Status Date / Time latex Allergy Unknown Verified 03/12/24 22:36 metronidazole (From Flagyl) Allergy Unknown Verified 03/12/24 22:36 levofloxacin AdvReac Unknown Verified 03/12/24 22:36 vancomycin AdvReac Unknown Verified 03/12/24 22:36 Review of Systems ROS Status of ROS 10 or more systems reviewed and unremarkable except as noted in history and below [facility] Medical History (Updated 03/13/24 @ 08:12 by Jody Mcginnis DO) Asthma ?J45.909 - Unspecified asthma, uncomplicated (ICD-10) Surgical History History of lobectomy of lung ?Z90.2 - Acquired absence of lung [part of] (ICD-10) Family History Other Family history not known due to adoption Social History Within the past year, how often did you have a drink containing alcohol: never Score interpretation: A score less than 3 is consistent with normal alcohol consumption. Smoking status: Current every day smoker Non-prescribed substance use: denies use Previous occupational history: unemployed Highest level of school completed/degree received: some college, no degree Are you now , , , , never or living with a partner: never In a typical week, how many times do you talk on the telephone with family, friends, or neighbors: 3 or more times per week How often do you get together with friends or relatives: 3 or more times per week Little interest or pleasure in doing things: not at all Feeling down, depressed, or hopeless: not at all Feel stressed/tense/nervous/anxious/difficulty sleeping: not at all Do you think of yourself as: straight/heterosexual Gender Identity: female Exam Constitutional Vital Signs, click to edit/add: Last Vital Signs Temp 98.2 F 03/13/24 19:35 Pulse 119 H 03/13/24 19:35 Resp 26 H 03/13/24 19:35 BP 126/80 03/13/24 19:35 Pulse Ox 90 L 03/13/24 19:35 O2 Del Method Nasal Cannula 03/13/24 19:35 O2 Flow Rate 3 03/13/24 19:35 Common normals: oriented x3, no limitations, healthy appearing, alert and well nourished General appearance: in distress (mild shortness of breath) HENMT Common normals: normocephalic and head/scalp atraumatic Eye Common normals: EOMs intact bilaterally and conjunctivae normal Respiratory Common normals: no retractions and no use of accessory muscles Other: faint exp diffuse wheeze Cardio Common normals: regular rate, regular rhythm, S1 normal heart sound and S2 normal heart sound Extremity Common normals: normal to inspection and full ROM Neuro Common normals: oriented x3, CN's II-XII intact bilaterally, moves all extremities and no focal motor deficits Psych Appearance: grossly normal Course Vital Signs Vital signs: Vital Signs Temperature 99.2 F 03/12/24 22:36 Pulse Rate 118 H 03/12/24 22:36 Respiratory Rate 20 03/12/24 22:36 Blood Pressure 153/106 H 03/12/24 22:36 Pulse Oximetry 95 03/12/24 22:36 Oxygen Delivery Method Room Air 03/12/24 22:36 Temperature 98.2 F 03/13/24 19:35 Pulse Rate 119 H 03/13/24 19:35 Respiratory Rate 26 H 03/13/24 19:35 Blood Pressure 126/80 03/13/24 19:35 Pulse Oximetry 90 L 03/13/24 19:35 Oxygen Delivery Method Nasal Cannula 03/13/24 19:35 Oxygen Delivery Flow Rate 3 03/13/24 19:35 MDM - SOB/Dyspnea MDM Narrative Medical decision making narrative: patient seen here in january for asthma exacerbation and improved after treatment in the ED. Discharged home on zpak and prednisone . After she completed treatment she again had an asthma attack and was admitted to [facility] for a couple of days and then discharged on steroid taper. Finished the taper about a week ago and now presents short of breath again with hoarse voice. No sore throat. Throat exam neg. treated with solumedrol and NMT x2 . Has improved some but still short of breath. cxray without infiltrate on my inspection. Discussed with the hospitalist and patient accepted for obs admission Lab Data Labs: Lab Results 03/12/24 Range/Units 23:05 WBC 12.4 H (4.0-11.0) 10^3/uL RBC 4.42 (4.20-5.40) 10^6/uL Hgb 12.8 (12.0-16.0) g/dL Hct 38.2 (36.0-48.0) % MCV 86.4 (81.0-99.0) fL MCH 29.0 (26.7-34.0) pg MCHC 33.5 (29.9-35.2) g/dL RDW 13.2 (11.0-15.0) % Plt Count 318 (150-450) 10^3/uL MPV 10.0 (9.5-13.5) fL Neut % (Auto) 71.4 (43.0-75.0) % Lymph % (Auto) 17.0 L (20.5-60.0) % Rooks % (Auto) 4.8 (1.7-12.0) % Eos % (Auto) 5.8 (0.9-7.0) % Baso % (Auto) 0.6 (0.2-2.0) % Neut # (Auto) 8.8 H (1.4-6.5) 10^3/uL Lymph # (Auto) 2.1 (1.2-3.8) 10^3/uL Rooks # (Auto) 0.6 (0.3-0.8) 10^3/uL Eos # (Auto) 0.7 (0.0-0.7) 10^3/uL Baso # (Auto) 0.1 (0.0-0.1) 10^3/uL Abs Immat Gran (auto) 0.05 H (0.00-0.03) 10^3/uL Imm/Tot Granulo (auto) 0.4 (0.0-0.5) % D-Dimer 0.50 (<=0.59) mg/L FEU Sodium 144 (136-145) mmol/L Potassium 3.1 L (3.5-5.1) mmol/L Chloride 108 H (98-107) mmol/L Carbon Dioxide 26.0 (21.0-32.0) mmol/L Anion Gap 13.1 BUN 13.0 (7.0-18.0) mg/dL Creatinine 1.16 H (0.55-1.02) mg/dL Est GFR ( Amer) >60 (>=60 mL/min/1.73m^2) Est GFR (Non-Af Amer) 54 L (>=60 mL/min/1.73m^2) BUN/Creatinine Ratio 11.2 Glucose 104 (74-106) mg/dL Calcium 9.3 (8.5-10.1) mg/dL Imaging Data Chest x-ray: Radiologist's impression: ITS Impressions Chest X-Ray 03/12/24 23:00 IMPRESSION: No acute cardiopulmonary disease. This report was generated with voice recognition software. Effort has been made to ensure accuracy of this report, however, occasional wording errors may persist. Please contact our office with any questions. Electronically authenticated by: ALEXANDRE MCCLENDON Date: 03/13/2024 01:48 Discharge Plan Discharge Chief Complaint: Shortness of Breath/Dyspnea Clinical Impression: Asthma exacerbation Qualifiers: Asthma severity: moderate Asthma persistence: persistent Qualified Code(s): J45.41 - Moderate persistent asthma with (acute) exacerbation Patient Disposition: Admitted as Observation Discharge Date/Time: 03/13/24 02:10
--- NOTE | 2024-03-12 23:00 | XR_ITS ---
The [address] [address] Patient Name: ZHANE BRAGG MRN: [id number] date: 1990 Sex: F Assigned Patient Location: ER Current Patient Location: ED.MAIN Accession/Order Number: [id number] Exam Date: 03/12/2024 23:08 Report Date: 03/13/2024 01:48 At the request of: DANIS EMERY Procedure: XR chest 1V SINGLE VIEW CHEST: 03/12/2024 11:08 PM EDT CLINICAL HISTORY:short of breath COMPARISONS: None. TECHNIQUE: Single frontal view of the chest, utilizing portable technique. Portable radiography should be considered a technically compromised study. Strongly consider dedicated PA and lateral chest radiographs, as clinically indicated. FINDINGS: LINES AND TUBES: None appreciated. CARDIAC SILHOUETTE: Within normal limits. MEDIASTINAL AND HILAR CONTOUR: Within normal limits. PULMONARY PARENCHYMA AND PLEURA: No consolidation, edema, effusion, or pneumothorax. OSSEOUS STRUCTURES:Nothing significant. OTHER COMMENTS:None. XR/XR chest 1V IMPRESSION: No acute cardiopulmonary disease. This report was generated with voice recognition software. Effort has been made to ensure accuracy of this report, however, occasional wording errors may persist. Please contact our office with any questions. Electronically authenticated by: ALEXANDRE MCCLENDON Date: 03/13/2024 01:48
[2024-03-12 23:20] VITALS: PULSE 110; O2SAT 94
[2024-03-12] MEDS: ALBUTEROL SULFATE 2.5 MG/3 ML VIAL NEB IH (23:20)
[2024-03-12 23:46] LABS: Basophils Absolute Auto 0.1 10^3/uL (0.0-0.1); Basophils Percent Auto 0.6 % (0.2-2.0); Eosinophils Absolute Auto 0.7 10^3/uL (0.0-0.7); Eosinophils Percent Auto 5.8 % (0.9-7.0); Hematocrit 38.2 % (36.0-48.0); Hemoglobin 12.8 g/dL (12.0-16.0); Immature Granulocytes Abs Auto 0.05 10^3/uL (0.00-0.03); Immature Granulocytes Pct Auto 0.4 % (0.0-0.5); Lymphocytes Absolute Auto 2.1 10^3/uL (1.2-3.8); Mean Corpuscular HGB Conc 33.5 g/dL (29.9-35.2); Mean Corpuscular Volume 86.4 fL (81.0-99.0); Monocytes Absolute Auto 0.6 10^3/uL (0.3-0.8); Monocytes Percent Auto 4.8 % (1.7-12.0); Neutrophils Absolute Auto 8.8 10^3/uL (1.4-6.5); Neutrophils Percent Auto 71.4 % (43.0-75.0); Platelet Count 318 10^3/uL (150-450); Red Blood Count 4.42 10^6/uL (4.20-5.40); Red Cell Distribution Width 13.2 % (11.0-15.0); White Blood Count 12.4 10^3/uL (4.0-11.0)
[2024-03-12] MEDS: METHYLPREDNISOLONE SOD SUCC PF 125 MG/2 ML VIAL IM (23:50)
[2024-03-12 23:56] LABS: Anion Gap 13.1; BUN Creatinine Ratio 11.2; Calcium 9.3 mg/dL (8.5-10.1); Chloride 108 mmol/L (98-107); Estimated GFR (African America >60 (>=60 mL/min/1.73m^2); Estimated GFR (Non-African Ame 54 (>=60 mL/min/1.73m^2); Glucose 104 mg/dL (74-106); Potassium 3.1 mmol/L (3.5-5.1); Sodium 144 mmol/L (136-145)
[2024-03-13] VITALS (26 sets, daily range): BP systolic 122–146; BP diastolic 67–81; PULSE 96–132; TEMP 36.6–36.8; O2SAT 88–96; BMI 49.1
[2024-03-13] MEDS: IPRATROPIUM/ALBUTEROL SULFATE 3 ML AMPUL.NEB IH ×4 (00:28→22:52)
[2024-03-13 03:39] LABS: Influenza Virus A Antigen Negative; Influenza Virus B Antigen Negative; Internal Control Within Normal Limits; Respiratory Syncytial Virus Not Detected (NOT DETECTE); SARS-CoV-2 Ag NEGATIVE (NEGATIVE)
[2024-03-13 06:04] LABS: Basophils Percent Auto 0.3 % (0.2-2.0); Eosinophils Percent Auto 0.2 % (0.9-7.0); Immature Granulocytes Abs Auto 0.03 10^3/uL (0.00-0.03); Immature Granulocytes Pct Auto 0.2 % (0.0-0.5); Lymphocytes Absolute Auto 0.7 10^3/uL (1.2-3.8); Lymphocytes Percent Auto 5.7 % (20.5-60.0); Mean Corpuscular HGB Conc 32.5 g/dL (29.9-35.2); Mean Corpuscular Hemoglobin 28.4 pg (26.7-34.0); Mean Corpuscular Volume 87.5 fL (81.0-99.0); Mean Platelet Volume 10.3 fL (9.5-13.5); Monocytes Absolute Auto 0.1 10^3/uL (0.3-0.8); Monocytes Percent Auto 0.9 % (1.7-12.0); Neutrophils Absolute Auto 11.5 10^3/uL (1.4-6.5); Neutrophils Percent Auto 92.7 % (43.0-75.0); Platelet Count 337 10^3/uL (150-450); Red Blood Count 4.57 10^6/uL (4.20-5.40); Red Cell Distribution Width 13.3 % (11.0-15.0); White Blood Count 12.4 10^3/uL (4.0-11.0)
[2024-03-13 06:23] LABS: Alanine Aminotransferase 18 U/L (14-59); Albumin Globulin Ratio 0.8; Albumin Level 3.3 g/dL (3.4-5.0); Alkaline Phosphatase 82 U/L (46-116); Anion Gap 15.1; Aspartate Amino Transferase 16 U/L (15-37); BUN Creatinine Ratio 17.2; Bilirubin Total 0.3 mg/dL (0.2-1.0); Carbon Dioxide 23.6 mmol/L (21.0-32.0); Chloride 106 mmol/L (98-107); Estimated GFR (African America >60 (>=60 mL/min/1.73m^2); Estimated GFR (Non-African Ame >60 (>=60 mL/min/1.73m^2); Globulin 4.2 g/dL; Glucose 166 mg/dL (74-106); Magnesium 1.9 mg/dL (1.8-2.4); Potassium 3.7 mmol/L (3.5-5.1); Sodium 141 mmol/L (136-145); Total Protein 7.5 g/dL (6.4-8.2)
[2024-03-13] MEDS: ALBUTEROL SULFATE 2.5 MG/3 ML VIAL NEB IH ×2 (06:48→15:15)
--- NOTE | 2024-03-13 08:05 | PM.HP ---
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 She developed Covid last month and since that time has been to the ER and admitted to [facility] for acute exacerbation of asthma from Covid. She has been treated with several rounds of Steroid tapers and antibiotics over the last month. She takes only 2 inhalers at home and recently had to stop her Symbicort as she could not afford it. 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 She reports having a CT of the Chest in [place] last month. She denies fevers, or chills, no nausea or vomiting. She has been experiencing worsening shortness of breath, dry cough and wheezing. No recent travel. She does not use oxygen at home. She continues to smoke 1 pack to 4 cigarettes a day. ER findings: Ddimer was normal range, WBCs 12.4, Mag 1.9, Viral testing for influenza, covid, were negative; CXR was negative for any acute findings. Patient was 96% on room air but was tachypnic with respiratory rate 24 and tachycardic at 113. Patient was afebrile. Overnight patient's oxygen saturation dropped to 88% and she was placed on 3L NC oxygen and came up to 93%. Opioid HPI Opioid Management Most Recent Pain and Opioid Data: Last Pain Assessment 03/13/24 10:25 Last ORT Total Score 2 03/13/24 02:23 03/13/24 Last ORT Risk Category Low Risk 03/13/24 02:23 03/13/24 Ur Phencyclidine Scrn Negative (NEGATIVE) 03/10/23 00:02 03/10/23 Review of Systems ROS Narrative ROS: a complete review of systems were reviewed with patient and are positive as below or listed in History of Chief Complaint. General: no fever, chills, night sweats Head: no headache, trauma, visual changes, nausea or vomiting Skin: no reported rashes, itching or sores Eyes: no blurriness of vision Ears: no reported hearing loss, vertigo, earache, or tinnitus Throat: no sore throat, hoarseness, swelling of neck, or tongue pain Heart: no chest pain Lungs:shortness of breath, cough GI: no diarrhea or vomiting/nausea Urinary: no urinary urgency, frequency or pain Neuro: no numbness or tingling HEM: no bleeding issues or bruising ENDO: no thyroid problems Psych: no anxiety or depression PFSH PFSH Medical History (Updated 03/13/24 @ 08:12 by Jody Mcginnis DO) Asthma ?J45.909 - Unspecified asthma, uncomplicated (ICD-10) Surgical History History of lobectomy of lung ?Z90.2 - Acquired absence of lung [part of] (ICD-10) Family History Other Family history not known due to adoption Social History Within the past year, how often did you have a drink containing alcohol: never Score interpretation: A score less than 3 is consistent with normal alcohol consumption. Smoking status: Current every day smoker Non-prescribed substance use: denies use Previous occupational history: unemployed Highest level of school completed/degree received: some college, no degree Are you now , , , , never or living with a partner: never In a typical week, how many times do you talk on the telephone with family, friends, or neighbors: 3 or more times per week How often do you get together with friends or relatives: 3 or more times per week Little interest or pleasure in doing things: not at all Feeling down, depressed, or hopeless: not at all Feel stressed/tense/nervous/anxious/difficulty sleeping: not at all Do you think of yourself as: straight/heterosexual Gender Identity: female Meds Home Medications and Allergies Home Medications ?Medication ?Instructions ?Recorded ?Confirmed ?Type albuterol sulfate 90 mcg/actuation 2 puff inhalation Q6H PRN 03/10/23 03/13/24 History aerosol inhaler shortness of breath or wheezing ipratropium 0.5 mg-albuterol 3 mg 3 ml inhalation Q4H PRN shortness 03/10/23 03/13/24 History (2.5 mg base)/3 mL nebulization of breath or wheezing soln Allergies Allergy/AdvReac Type Severity Reaction Status Date / Time latex Allergy Unknown Verified 03/12/24 22:36 metronidazole (From Flagyl) Allergy Unknown Verified 03/12/24 22:36 levofloxacin AdvReac Unknown Verified 03/12/24 22:36 vancomycin AdvReac Unknown Verified 03/12/24 22:36 Exam Narrative Exam Narrative: General: Patient is alert, and oriented to person, place and time with becomes very short of breath with conversing Skin: no visible rashes, or ulcers Head: atraumatic, acephalic Eyes: PERRLA, no nystagmus present, conjunctiva clear, no scleral icterus Ears: normal gross auditory acuity Nose: symmetric, no discharge, no maxillary or frontal sinus tenderness Mouth/Throat: no erythema, exudate, or tonsillar enlargement, normal dentition Neck: no masses palpated, normal thyroid, no JVD or audible carotid bruits Heart: Normal rate and rhythm, no murmurs/rubs/gallops Lungs: audible wheezes, with diminished breath sounds all lung roach Abdomen: Normal audible bowel sounds, no distension, No palpable masses, no organomegaly, no rebound/guarding/ or rigidity Musculoskeletal: no swelling bilateral lower extremities Neuro: CN II-X grossly intact Constitutional Vital Signs, click to edit/add: Last Vital Signs Temp 98.2 F 03/13/24 07:41 Pulse 101 H 03/13/24 07:56 Resp 20 03/13/24 07:41 BP 146/67 H 03/13/24 07:41 Pulse Ox 93 L 03/13/24 07:56 O2 Del Method Nasal Cannula 03/13/24 07:41 O2 Flow Rate 3 03/13/24 07:41 Results Labs Labs: Short CBC 03/12/24 03/13/24 Range/Units 23:05 05:23 WBC 12.4 H 12.4 H (4.0-11.0) 10^3/uL Hgb 12.8 13.0 (12.0-16.0) g/dL Hct 38.2 40.0 (36.0-48.0) % Plt Count 318 337 (150-450) 10^3/uL BMP 03/12/24 03/13/24 23:05 05:23 Sodium 144 141 Potassium 3.1 L 3.7 Chloride 108 H 106 Carbon Dioxide 26.0 23.6 BUN 13.0 16.0 Creatinine 1.16 H 0.93 Glucose 104 166 H Calcium 9.3 9.0 Liver Function 03/13/24 Range/Units 05:23 Total Bilirubin 0.3 (0.2-1.0) mg/dL AST 16 (15-37) U/L ALT 18 (14-59) U/L Alkaline Phosphatase 82 (46-116) U/L Albumin 3.3 L (3.4-5.0) g/dL Assessment and Plan Assessment and Plan (1) Asthma exacerbation: Qualifiers: Asthma persistence: persistent Asthma severity: moderate Qualified Code(s): J45.41 - Moderate persistent asthma with (acute) exacerbation Plan Patient is Full Code Lovenox for DVT prophylaxis Chest X-ray was negative, Viral testing negative including influenza, RSV and Covid. Will place patient on scheduled duonebs with PRN albuterol. Solumedrol 40mg q6 hours IV, and scheduled pulmicort with OPEP. Magnesium level was within normal range this morning. Will also place her on Zithromax 500mg IV daily. Monitor the need for oxygen as she is requiring now. D-dimer was negative so less suspicious for PE. Given her tachypnea and failing outpatient treatment and now the need for oxygen therapy would benefit from another night hospital stay for IV treatments.
[2024-03-13] MEDS: GUAIFENESIN 200 MG/DEXTROMETHORPHAN 20 MG 10 ML UNIT DOSE CUP PO ×3 (08:21→21:16)
[2024-03-13] MEDS: AZITHROMYCIN 500 MG in 0.9 % SODIUM CHLORIDE 250 ML 250 MG IV (08:21)
[2024-03-13] MEDS: METHYLPREDNISOLONE SOD SUCC PF 40 MG/ML VIAL IVP ×3 (08:21→21:16)
[2024-03-13] MEDS: BUDESONIDE 0.5 MG/2 ML AMPULE NEB IH ×2 (11:01→22:52)
[2024-03-13] MEDS: ENOXAPARIN SODIUM 40 MG/0.4 ML SYRINGE SUBQ (21:17)
[2024-03-14] VITALS (20 sets, daily range): BP systolic 110–147; BP diastolic 56–78; PULSE 83–127; TEMP 36.4–36.9; O2SAT 85–96
[2024-03-14] MEDS: IPRATROPIUM/ALBUTEROL SULFATE 3 ML AMPUL.NEB IH ×6 (03:30→23:01)
[2024-03-14] MEDS: METHYLPREDNISOLONE SOD SUCC PF 40 MG/ML VIAL IVP ×4 (04:48→22:04)
[2024-03-14 06:01] LABS: Basophils Percent Auto 0.1 % (0.2-2.0); Hematocrit 36.5 % (36.0-48.0); Immature Granulocytes Abs Auto 0.11 10^3/uL (0.00-0.03); Immature Granulocytes Pct Auto 0.6 % (0.0-0.5); Lymphocytes Absolute Auto 1.5 10^3/uL (1.2-3.8); Lymphocytes Percent Auto 8.4 % (20.5-60.0); Mean Corpuscular HGB Conc 32.9 g/dL (29.9-35.2); Mean Corpuscular Hemoglobin 28.4 pg (26.7-34.0); Mean Corpuscular Volume 86.3 fL (81.0-99.0); Mean Platelet Volume 10.5 fL (9.5-13.5); Monocytes Absolute Auto 0.4 10^3/uL (0.3-0.8); Monocytes Percent Auto 2.5 % (1.7-12.0); Neutrophils Absolute Auto 15.3 10^3/uL (1.4-6.5); Neutrophils Percent Auto 88.4 % (43.0-75.0); Platelet Count 330 10^3/uL (150-450); Red Blood Count 4.23 10^6/uL (4.20-5.40); Red Cell Distribution Width 13.4 % (11.0-15.0); White Blood Count 17.3 10^3/uL (4.0-11.0)
[2024-03-14 06:17] LABS: Alanine Aminotransferase 17 U/L (14-59); Albumin Globulin Ratio 0.7; Albumin Level 2.8 g/dL (3.4-5.0); Alkaline Phosphatase 77 U/L (46-116); Aspartate Amino Transferase 10 U/L (15-37); BUN Creatinine Ratio 18.1; Bilirubin Total 0.2 mg/dL (0.2-1.0); Calcium 8.1 mg/dL (8.5-10.1); Carbon Dioxide 22.9 mmol/L (21.0-32.0); Chloride 107 mmol/L (98-107); Estimated GFR (African America >60 (>=60 mL/min/1.73m^2); Estimated GFR (Non-African Ame >60 (>=60 mL/min/1.73m^2); Globulin 3.8 g/dL; Glucose 166 mg/dL (74-106); Potassium 3.9 mmol/L (3.5-5.1); Sodium 142 mmol/L (136-145); Total Protein 6.6 g/dL (6.4-8.2)
--- NOTE | 2024-03-14 07:25 | XR_ITS ---
[place] [id number] Patient Name: ZHANE BRAGG MRN: [id number] date: 1990 Sex: F Assigned Patient Location: MS Current Patient Location: MS Accession/Order Number: [id number] Exam Date: 03/14/2024 07:35 Report Date: 03/14/2024 08:08 At the request of: NIKI SIMMONS Procedure: XR chest 1V EXAMINATION: XR chest 1V HISTORY: shortness of breath COMPARISON: XR chest 03/12/2024 FINDINGS: LUNGS: Underexpanded lungs with mild opacities within lung bases partially obscuring the diaphragm margins. VASCULATURE: No increased pulmonary vasculature. PLEURA: No pneumothorax, effusion, or pleural thickening. CARDIAC: Cannot assess. Margins are obscured by elevated diaphragms. MEDIASTINUM: No visible mass or adenopathy. BONES: No fracture or visible bone lesion. OTHER: Negative. XR/XR chest 1V IMPRESSION: 1. Limited examination due to marked underexpansion of the lungs. 2. Suspect mild bibasilar infiltrates versus atelectasis; new since prior study. Electronically authenticated by: TERRY GOYAL Date: 03/14/2024 08:08
--- NOTE | 2024-03-14 07:39 | PM.PN ---
Progress Note: Subjective Subjective Interval history: Patient reports improvement this morning, subtle improvement. She still having significant shortness of breath with ambulation and with talking. Feels less tight and less wheezing. She is still coughing and feels she is expectorating more. She denies fevers and chills. No n/v/d. Repeat Chest X-ray today shows no worsening infiltrates, still with basilar atelectasis Exam Narrative Exam Narrative: General: Patient is alert, and oriented to person, place and time, still short of breath with conversing Head: atraumatic, acephalic Eyes: PERRLA, no nystagmus present, conjunctiva clear, no scleral icterus Neck: no masses palpated, normal thyroid, no JVD or audible carotid bruits Heart: Normal rate and rhythm, no murmurs/rubs/gallops Lungs: audible wheezes with diminished breath sounds all lung roach Abdomen: Normal audible bowel sounds, no distension, No palpable masses, no organomegaly, no rebound/guarding/ or rigidity Musculoskeletal: no swelling bilateral lower extremities Neuro: CN II-X grossly intact Constitutional Vital Signs, click to edit/add: Last Vital Signs Temp 97.6 F 03/14/24 04:00 Pulse 87 03/14/24 06:00 Resp 18 03/14/24 04:00 BP 119/73 03/14/24 04:00 Pulse Ox 94 L 03/14/24 04:00 O2 Del Method Nasal Cannula 03/14/24 04:00 O2 Flow Rate 2 03/14/24 04:00 Progress Note: Objective Labs Labs: Short CBC 03/14/24 Range/Units 05:28 WBC 17.3 H (4.0-11.0) 10^3/uL Hgb 12.0 (12.0-16.0) g/dL Hct 36.5 (36.0-48.0) % Plt Count 330 (150-450) 10^3/uL BMP 03/14/24 05:28 Sodium 142 Potassium 3.9 Chloride 107 Carbon Dioxide 22.9 BUN 13.0 Creatinine 0.72 Glucose 166 H Calcium 8.1 L Liver Function 03/14/24 Range/Units 05:28 Total Bilirubin 0.2 (0.2-1.0) mg/dL AST 10 L (15-37) U/L ALT 17 (14-59) U/L Alkaline Phosphatase 77 (46-116) U/L Albumin 2.8 L (3.4-5.0) g/dL Progress Note: A&P Assessment and Plan (1) Asthma exacerbation: Assessment and Plan: Chest X-ray was negative on admission, repeat today shows stability. Viral testing negative including influenza, RSV and Covid. continue scheduled duonebs with PRN albuterol. Solumedrol 40mg q6 hours IV, and scheduled pulmicort with OPEP. Magnesium level was within normal range. continue Zithromax 500mg IV daily. Monitor the need for oxygen as she is requiring now and dropped to 88% on room air when ambulating to the restroom, recovered on 2L. Respiratory rate 20's. D-dimer was negative so less suspicious for PE. Will also get Pulmonary consult if possible. Qualifiers: Asthma persistence: persistent Asthma severity: moderate Qualified Code(s): J45.41 - Moderate persistent asthma with (acute) exacerbation Plan Patient is Full Code Lovenox for DVT prophylaxis Given her tachypnea now the need for oxygen therapy would benefit from another night hospital stay for IV treatments.
[2024-03-14] MEDS: AZITHROMYCIN 500 MG in 0.9 % SODIUM CHLORIDE 250 ML 125 MG IV (08:41)
[2024-03-14] MEDS: 0.9 % SODIUM CHLORIDE 250 ML 10 ML IV (08:42)
[2024-03-14] MEDS: GUAIFENESIN 200 MG/DEXTROMETHORPHAN 20 MG 10 ML UNIT DOSE CUP PO ×3 (08:47→22:05)
[2024-03-14] MEDS: BUDESONIDE 0.5 MG/2 ML AMPULE NEB IH ×2 (11:53→23:01)
[2024-03-14] MEDS: ACETAMINOPHEN 325 MG TABLET 650 MG PO (19:34)
[2024-03-14] MEDS: ENOXAPARIN SODIUM 40 MG/0.4 ML SYRINGE SUBQ (22:05)
[2024-03-15] VITALS (26 sets, daily range): BP systolic 101–156; BP diastolic 61–92; PULSE 72–116; TEMP 36.6–37.2; O2SAT 91–97
[2024-03-15] MEDS: IPRATROPIUM/ALBUTEROL SULFATE 3 ML AMPUL.NEB IH ×6 (03:59→23:03)
[2024-03-15] MEDS: METHYLPREDNISOLONE SOD SUCC PF 40 MG/ML VIAL IVP ×4 (04:16→22:21)
[2024-03-15] MEDS: GUAIFENESIN 200 MG/DEXTROMETHORPHAN 20 MG 10 ML UNIT DOSE CUP PO ×2 (04:16→22:23)
[2024-03-15] MEDS: ACETAMINOPHEN 325 MG TABLET 650 MG PO ×2 (04:22→14:41)
[2024-03-15 05:54] LABS: Basophils Percent Auto 0.2 % (0.2-2.0); Hematocrit 36.8 % (36.0-48.0); Hemoglobin 12.1 g/dL (12.0-16.0); Immature Granulocytes Abs Auto 0.26 10^3/uL (0.00-0.03); Immature Granulocytes Pct Auto 1.4 % (0.0-0.5); Lymphocytes Absolute Auto 1.7 10^3/uL (1.2-3.8); Lymphocytes Percent Auto 9.4 % (20.5-60.0); Mean Corpuscular HGB Conc 32.9 g/dL (29.9-35.2); Mean Corpuscular Hemoglobin 28.4 pg (26.7-34.0); Mean Corpuscular Volume 86.4 fL (81.0-99.0); Mean Platelet Volume 10.3 fL (9.5-13.5); Monocytes Absolute Auto 0.4 10^3/uL (0.3-0.8); Neutrophils Absolute Auto 15.8 10^3/uL (1.4-6.5); Platelet Count 326 10^3/uL (150-450); Red Blood Count 4.26 10^6/uL (4.20-5.40); Red Cell Distribution Width 13.5 % (11.0-15.0); White Blood Count 18.1 10^3/uL (4.0-11.0)
[2024-03-15 06:12] LABS: Alanine Aminotransferase 17 U/L (14-59); Albumin Globulin Ratio 0.7; Albumin Level 2.7 g/dL (3.4-5.0); Alkaline Phosphatase 79 U/L (46-116); Anion Gap 14.8; Aspartate Amino Transferase 15 U/L (15-37); BUN Creatinine Ratio 17.3; Bilirubin Total 0.2 mg/dL (0.2-1.0); Calcium 8.1 mg/dL (8.5-10.1); Carbon Dioxide 23.3 mmol/L (21.0-32.0); Chloride 106 mmol/L (98-107); Estimated GFR (African America >60 (>=60 mL/min/1.73m^2); Estimated GFR (Non-African Ame >60 (>=60 mL/min/1.73m^2); Globulin 3.9 g/dL; Glucose 174 mg/dL (74-106); Potassium 4.1 mmol/L (3.5-5.1); Sodium 140 mmol/L (136-145); Total Protein 6.6 g/dL (6.4-8.2)
--- NOTE | 2024-03-15 07:33 | PM.PN ---
Progress Note: Subjective Subjective Interval history: Patient reports improvement this morning. She still having shortness of breath with ambulation and with talking. Feels less tight and less wheezing. She is still coughing and feels she is expectorating more. She denies fevers and chills. No n/v/d. Oxygen is down to 1L NC. Exam Narrative Exam Narrative: General: Patient is alert, and oriented to person, place and time, still short of breath with conversing Head: atraumatic, acephalic Eyes: PERRLA, no nystagmus present, conjunctiva clear, no scleral icterus Neck: no masses palpated, normal thyroid, no JVD or audible carotid bruits Heart: Normal rate and rhythm, no murmurs/rubs/gallops Lungs: audible wheezes with diminished breath sounds all lung roach, but improved compared to yesterday Abdomen: Normal audible bowel sounds, no distension, No palpable masses, no organomegaly, no rebound/guarding/ or rigidity Musculoskeletal: no swelling bilateral lower extremities Neuro: CN II-X grossly intact Constitutional Vital Signs, click to edit/add: Last Vital Signs Temp 98 F 03/15/24 07:16 Pulse 77 03/15/24 07:19 Resp 20 03/15/24 07:16 BP 129/74 03/15/24 07:16 Pulse Ox 97 03/15/24 07:19 O2 Del Method Nasal Cannula 03/15/24 07:19 O2 Flow Rate 2 03/15/24 07:19 Progress Note: Objective Labs Labs: Short CBC 03/15/24 Range/Units 05:30 WBC 18.1 H (4.0-11.0) 10^3/uL Hgb 12.1 (12.0-16.0) g/dL Hct 36.8 (36.0-48.0) % Plt Count 326 (150-450) 10^3/uL BMP 03/15/24 05:30 Sodium 140 Potassium 4.1 Chloride 106 Carbon Dioxide 23.3 BUN 13.0 Creatinine 0.75 Glucose 174 H Calcium 8.1 L Liver Function 03/15/24 Range/Units 05:30 Total Bilirubin 0.2 (0.2-1.0) mg/dL AST 15 (15-37) U/L ALT 17 (14-59) U/L Alkaline Phosphatase 79 (46-116) U/L Albumin 2.7 L (3.4-5.0) g/dL Progress Note: A&P Assessment and Plan (1) Asthma exacerbation: Assessment and Plan: Chest X-ray was negative on admission, repeat 03/14 shows stability. Viral testing negative including influenza, RSV and Covid. continue scheduled duonebs with PRN albuterol. Solumedrol 40mg q6 hours IV, and scheduled pulmicort with OPEP. Magnesium level was within normal range. continue Zithromax 500mg IV daily. Monitor the need for oxygen 1L NC today. Pulmonary consult today and appreciate his imput. Qualifiers: Asthma persistence: persistent Asthma severity: moderate Qualified Code(s): J45.41 - Moderate persistent asthma with (acute) exacerbation (2) Acute respiratory failure with hypoxia: Assessment and Plan: secondary to #1 (3) Tobacco abuse: Assessment and Plan: encouraged her to stop smoking Plan Patient is Full Code Lovenox for DVT prophylaxis
--- NOTE | 2024-03-15 07:58 | P.PLCN_ITS ---
History of Present Illness History of Present Illness Chief complaint: DIFF BREATHING, WHEEZING HX ASTHMA Narrative: 34yo asthmatic and smoker returns to a healthcare facility for difficulty breathing. Has had asthma life-long, lost insurance and cannot afford Symbicort, subsiding only on DuoNeb and albuterol HFA. She was admitted several weeks ago to [facility] for asthma exacerbation after ayde COVID- 19 earlier in January (was actually seen here @ [facility] on 02/03/2024). She was discharged from [facility] on prednisone, but buy the time the taper was at the lowest dose, she felt more tight and wheezy. She then came to [facility] ER on 03/12/2024 and was admitted for asthma exacerbation. This time, she became hypoxic and is now on supplemental O2. Despite her asthma and financial difficulties, she can seem to afford to smoke ~1ppd of cigarettes. Review of Systems ROS Status of ROS 10 or more systems reviewed and unremark able except as noted in history and below [facility] Medical History (Updated 03/13/24 @ 08:12 by Jody Mcginnis DO) Asthma ?J45.909 - Unspecified asthma, uncomplicated (ICD-10) Surgical History History of lobectomy of lung ?Z90.2 - Acquired absence of lung [part of] (ICD-10) Family History Other Family history not known due to adoption Social History Within the past year, how often did you have a drink containing alcohol: never Score interpretation: A score less than 3 is consistent with normal alcohol consumption. Smoking status: Current every day smoker Non-prescribed substance use: denies use Previous occupational history: unemployed Highest level of school completed/degree received: some college, no degree Are you now , , , , never or living with a partner: never In a typical week, how many times do you talk on the telephone with family, friends, or neighbors: 3 or more times per week How often do you get together with friends or relatives: 3 or more times per week Little interest or pleasure in doing things: not at all Feeling down, depressed, or hopeless: not at all Feel stressed/tense/nervous/anxious/difficulty sleeping: not at all Do you think of yourself as: straight/heterosexual Gender Identity: female Meds Home Medications and Allergies Allergies Allergy/AdvReac Type Severity Reaction Status Date / Time latex Allergy Unknown Verified 03/12/24 22:36 metronidazole (From Flagyl) Allergy Unknown Verified 03/12/24 22:36 levofloxacin AdvReac Unknown Verified 03/12/24 22:36 vancomycin AdvReac Unknown Verified 03/12/24 22:36 Exam Narrative Exam Narrative: AxO x 3 No acute distress, harsh cough No oral candidiasis Macroglossia & tongue ridging RRR Diffuse mild-moderate expiratory wheezes with scattered crackles Morbidly obese No edema No tremors Constitutional Vital Signs, click to edit/add: Last Vital Signs Temp 98 F 03/15/24 07:16 Pulse 77 03/15/24 07:19 Resp 20 03/15/24 07:16 BP 129/74 03/15/24 07:16 Pulse Ox 97 03/15/24 07:19 O2 Del Method Nasal Cannula 03/15/24 07:19 O2 Flow Rate 2 03/15/24 07:19 Results Laboratory Findings ABG, PT/INR, D-dimer: PT/INR, D-dimer D-Dimer 0.50 mg/L FEU (<=0.59) 03/12/24 23:05 Abnormal lab findings: Abnormal Labs 03/12/24 03/13/24 03/14/24 23:05 05:23 05:28 WBC 12.4 H 12.4 H 17.3 H Neut % (Auto) 92.7 H 88.4 H Lymph % (Auto) 17.0 L 5.7 L 8.4 L [place] % (Auto) 0.9 L Eos % (Auto) 0.2 L 0.0 L Baso % (Auto) 0.1 L Neut # (Auto) 8.8 H 11.5 H 15.3 H Lymph # (Auto) 0.7 L [place] # (Auto) 0.1 L Abs Immat Gran (auto) 0.05 H 0.11 H Imm/Tot Granulo (auto) 0.6 H Potassium 3.1 L Chloride 108 H Creatinine 1.16 H Est GFR (Non-Af Amer) 54 L Glucose 166 H 166 H Calcium 8.1 L AST 10 L Albumin 3.3 L 2.8 L 03/15/24 05:30 WBC 18.1 H Neut % (Auto) 87.0 H Lymph % (Auto) 9.4 L [place] % (Auto) Eos % (Auto) 0.0 L Baso % (Auto) Neut # (Auto) 15.8 H Lymph # (Auto) [place] # (Auto) Abs Immat Gran (auto) 0.26 H Imm/Tot Granulo (auto) 1.4 H Potassium Chloride Creatinine Est GFR (Non-Af Amer) Glucose 174 H Calcium 8.1 L AST Albumin 2.7 L Assessment and Plan Assessment and Plan (1) Asthma exacerbation: Qualifiers: Asthma persistence: persistent Asthma severity: moderate Qualified Code(s): J45.41 - Moderate persistent asthma with (acute) exacerbation Plan 1. 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 Compounded by lack of inhaled steroid/maintenance inhaler and continued tobacco abuse, provoked by COVID-19 last month. There is not much else to add at this time, continue with bronchodilators and steroids. Patient is looking into Medicaid for some sort of insurance coverage. More importantly, she needs to stop smoking - this is nearly $200/month she is wasting which could pay for a maintenance inhaler. Not only that, it is preventing her lungs from healing. Explained that if she does not get back on at least Symbicort and stop smoking, then she should expect repeated admissions to a hospital. Eosinophils were 700 on 03/12/2024 and 800 on 02/03/2024 - biologics could be indicated at this point, but she should be at least back on a maintenance inhaler and stop smoking first to see if that would help. 2. Acute hypoxic respiratory failure. Secondary to #1. 3. Tobacco abuse. Patient was counseled on smoking cessation. Her asthma would be better controlled and she could afford some additional medications if she were to stop smoking... 4. 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 She is already established with [facility] pulmonology - she needs to return there for further F/U & management.
--- NOTE | 2024-03-15 08:13 | CM.NOTE ---
Discussed with pt about insurance, pt registered as self-pay. Pt at this time does not have insurance, pt is going to apply for Medicaid. Pt was given [facility] paperwork to complete upon admission. Pt at this time is living with her grandmother, pt has 3 children that also live with her. Pt is currently unemployed.
[2024-03-15] MEDS: AZITHROMYCIN 500 MG in 0.9 % SODIUM CHLORIDE 250 ML 250 MG IV (09:04)
--- NOTE | 2024-03-15 11:17 | CM.NOTE ---
Rounds made with Dr. 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 Pt denies need for Medicare paperwork at this time. No discharge today, pt is still requiring 1L NC oxygen.
[2024-03-15] MEDS: BUDESONIDE 0.5 MG/2 ML AMPULE NEB IH ×2 (11:32→23:03)
[2024-03-15] MEDS: ENOXAPARIN SODIUM 40 MG/0.4 ML SYRINGE SUBQ (21:01)
[2024-03-16] VITALS (11 sets, daily range): BP systolic 127–149; BP diastolic 80–82; PULSE 77–115; TEMP 36.8; O2SAT 91–95
[2024-03-16] MEDS: IPRATROPIUM/ALBUTEROL SULFATE 3 ML AMPUL.NEB IH ×3 (03:49→10:32)
[2024-03-16] MEDS: METHYLPREDNISOLONE SOD SUCC PF 40 MG/ML VIAL IVP (04:01)
[2024-03-16 06:15] LABS: Basophils Percent Auto 0.1 % (0.2-2.0); Hematocrit 38.9 % (36.0-48.0); Hemoglobin 12.8 g/dL (12.0-16.0); Immature Granulocytes Abs Auto 0.35 10^3/uL (0.00-0.03); Immature Granulocytes Pct Auto 2.2 % (0.0-0.5); Lymphocytes Absolute Auto 1.8 10^3/uL (1.2-3.8); Lymphocytes Percent Auto 11.2 % (20.5-60.0); Mean Corpuscular HGB Conc 32.9 g/dL (29.9-35.2); Mean Corpuscular Hemoglobin 28.4 pg (26.7-34.0); Mean Corpuscular Volume 86.3 fL (81.0-99.0); Mean Platelet Volume 10.3 fL (9.5-13.5); Monocytes Absolute Auto 0.4 10^3/uL (0.3-0.8); Monocytes Percent Auto 2.8 % (1.7-12.0); Neutrophils Absolute Auto 13.2 10^3/uL (1.4-6.5); Neutrophils Percent Auto 83.7 % (43.0-75.0); Platelet Count 357 10^3/uL (150-450); Red Blood Count 4.51 10^6/uL (4.20-5.40); Red Cell Distribution Width 13.3 % (11.0-15.0); White Blood Count 15.8 10^3/uL (4.0-11.0)
--- NOTE | 2024-03-16 08:11 | P.DS_ITS ---
DS: Providers Provider Date of admission: 03/14/24 10:59 Primary care physician: [facility] Admitting clinician: Jody Mcginnis Consults: 03/14/24 13:08 Consult to Pulmonology Routine Consulting Provider: Karsten Briggs Reason for consultation: Asthma exacerbation, hypoxia Has provider been notified: No Discharging clinician: Jody Mcginnis DS: Diagnosis Discharge Diagnosis (1) Asthma exacerbation: Qualifiers: Asthma persistence: persistent Asthma severity: moderate Qualified Code(s): J45.41 - Moderate persistent asthma with (acute) exacerbation (2) Acute respiratory failure with hypoxia: (3) Tobacco abuse: DS: Summary Hospital Course Hospital Course: Patient is a 34 y.o white female with past medical history of 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 She developed Covid last month and since that time has been to the ER and admitted to [facility] for acute exacerbation of asthma from Covid. She has been treated with several rounds of Steroid tapers and antibiotics over the last month. She takes only 2 inhalers at home and recently had to stop her Symbicort as she could not afford it. She was previously seen at [facility] Pulmonology, She had a left lung wedge lobectomy from a nodule in 2019 that ended up testing positive for Histoplasmosis. She reports having a CT of the Chest in [place] last month. She denies fevers, or chills, no nausea or vomiting. She has been experiencing worsening shortness of breath, dry cough and wheezing. No recent travel. She does not use oxygen at home. She continues to smoke 1 pack to 4 cigarettes a day. ER findings: Ddimer was normal range, WBCs 12.4, Mag 1.9, Viral testing for influenza, covid, were negative; CXR was negative for any acute findings. Patient was 96% on room air but was tachypnic with respiratory rate 24 and tachycardic at 113. Patient was afebrile. Overnight patient's oxygen saturation dropped to 88% and she was placed on 3L NC oxygen and came up to 93%. Chest X-ray was negative, Viral testing negative including influenza, RSV and Covid. Patient continued scheduled duonebs with PRN albuterol. Solumedrol 40mg q6 hours IV, and scheduled pulmicort with OPEP. Magnesium level was within normal range. Patient also had 3 days Zithromax 500mg IV daily. Patient required 3L NC oxygen, then 2, then 1L and at the time of discharge is able to ambulate and keep oxygen saturations >89%. She will be discharged on prednisone 20mg BID x 7 days, duoneb treatments, and pulmicort nebs. She can Start the symbicort once she has completed nebs. 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 She may return to the ER with any worsening signs or symptoms. WBC elevated is steroid induced otherwise labs stable. She is encouraged to stop smoking. Status at Discharge Functional status at discharge: independent ambulation Overall status at discharge: patient is progressing back to baseline Time Spent with Patient Time attestation: Total time spent providing and/or coordinating discharge services: Time spent: greater than 30 minutes Exam Narrative Exam Narrative: General: Patient is alert, and oriented to person, place and time, still short of breath with conversing Head: atraumatic, acephalic Eyes: PERRLA, no nystagmus present, conjunctiva clear, no scleral icterus Neck: no masses palpated, normal thyroid, no JVD or audible carotid bruits Heart: Normal rate and rhythm, no murmurs/rubs/gallops Lungs: audible wheezes with improved breath sounds all lung roach Abdomen: Normal audible bowel sounds, no distension, No palpable masses, no organomegaly, no rebound/guarding/ or rigidity Musculoskeletal: no swelling bilateral lower extremities Neuro: CN II-X grossly intact Constitutional Vital Signs, click to edit/add: Last Vital Signs Temp 98.2 F 03/16/24 07:56 Pulse 83 03/16/24 08:00 Resp 20 03/16/24 07:56 BP 127/80 03/16/24 07:56 Pulse Ox 94 L 03/16/24 08:00 O2 Del Method Room Air 03/16/24 07:56 O2 Flow Rate 1 03/15/24 11:33 DS: Data Data Completed and Pending Labs on day of discharge: Labs from last 24 hours 03/16/24 05:53 WBC 15.8 H RBC 4.51 Hgb 12.8 Hct 38.9 MCV 86.3 MCH 28.4 MCHC 32.9 RDW 13.3 Plt Count 357 MPV 10.3 Neut % (Auto) 83.7 H Lymph % (Auto) 11.2 L [place] % (Auto) 2.8 Eos % (Auto) 0.0 L Baso % (Auto) 0.1 L Neut # (Auto) 13.2 H Lymph # (Auto) 1.8 [place] # (Auto) 0.4 Eos # (Auto) 0.0 Baso # (Auto) 0.0 Abs Immat Gran (auto) 0.35 H Imm/Tot Granulo (auto) 2.2 H Discharge Plan Discharge Disposition: Home, Self-Care Plan of Treatment: Please try to stop smoking. Use the pulmicort nebs, then start the symbicort. Discharge Medications: New ipratropium-albuterol 0.5 mg-3 mg(2.5 mg base)/3 mL Solution For Nebulization 3 ml inhalation Q4H PRN (Reason: Shortness Of Breath Or Wheezing) 15 Days Qty: 180 0RF budesonide 0.5 mg/2 mL Suspension For Nebulization 0.5 mg inhalation BID 15 Days Qty: 60 0RF budesonide-formoterol [Symbicort] 160-4.5 mcg/actuation HFA aerosol inhaler 2 inh inhalation BID 30 Days Qty: 10.2 0RF prednisone 20 mg tablet 20 mg PO BID 7 Days Qty: 14 0RF Mucinex DM 30-600 mg tablet extended release 12 hr 1 tab PO BID PRN (Reason: cough) 15 Days Qty: 30 0RF Activity: increase activity as tolerated Diet: advance to your usual diet Print Language: Paraguayan Patient Instructions: Asthma (DC) Forms: Portal Instructions Follow Up Appointments: @ 11am with [facility] [phone]
[2024-03-16] MEDS: AZITHROMYCIN 500 MG in 0.9 % SODIUM CHLORIDE 250 ML 250 MG IV (08:58)
[2024-03-16] MEDS: GUAIFENESIN 200 MG/DEXTROMETHORPHAN 20 MG 10 ML UNIT DOSE CUP PO (08:58)
[2024-03-16] MEDS: BUDESONIDE 0.5 MG/2 ML AMPULE NEB IH (10:32)
--- NOTE | 2024-03-16 10:35 | CM.NOTE ---
Rounds made with Dr. Mcginnis, discussed discharge plan with pt and new medications. Talked with pt also regarding importance of f/u appt and chronic disease management.
--- NOTE | 2024-03-17 15:37 | CM.DCFOLLOWU ---
1st attempt 03/17/24, no answer
--- NOTE | 2024-03-18 13:42 | CM.DCFOLLOWU ---
Person spoke with: patient How are you feeling? well How is your pain? feels like her skin is sore, possibly from the medication. Advised to come back to ED if reaction gets worse or changes Did you understand your discharge instructions? yes Do you have any questions about your discharge instructions? no Were you given any prescriptions at discharge? yes Were you able to get your prescriptions filled?yes Do you understand how to take your medications as ordered? yes Do you have any questions about your follow up appointment and do you plan to keep your follow up appointment? no questions, she does not have insurance and she could not pay for her follow up visit today Is there anything else that you would like to discuss?no Questions/Comments/Concerns/Other:none
== END 2024-03-16 11:00 | disposition home or self-care (01) | DRG 202 ==
LOC: ER 03-13 01:10 → MS 03-13 02:14
PROVIDERS: Internal Medicine; Registered Nurse; Admitting Provider Family Medicine; Emergency Provider Internal Medicine; Visit Provider Family Medicine
DX: J45.41 Moderate persistent asthma with (acute) exacerbation (principal); J96.01 Acute respiratory failure with hypoxia; F17.210 Nicotine dependence, cigarettes, uncomplicated; Z90.2 Acquired absence of lung [part of]; Z79.899 Other long term (current) drug therapy; Z20.822 Contact with and (suspected) exposure to COVID-19; Z86.16 Personal history of COVID-19
CPT/HCPCS: 36415; 71045; 80048; 80053; 83735; 85025; 85378; 87420; 87804; 87811; 94640; 94667; 94668; 94761; 99285; G0378; J0456; J1650; J2919

== ENCOUNTER 2024-05-14 02:39 | Emergency (ER) | payer SELFPAY ==
[2024-05-14 02:42] VITALS: BP 143/88; PULSE 120; TEMP 37; O2SAT 95; BMI 46.9
--- OUTSIDE RECORDS SUMMARY | 2024-05-14 02:53 | XMS_ITS | CCD ---
Author Organization [facility] Care Team Providers Care Bioinformaticist Name Role Phone VLADIMIR ESTRADA Unavailable Unavailab TERRY Costa Unavailable Unavailable PHYSICIAN, DEFAULT Unavailable Unavailable PHYSICIAN, DEFAULT Unavailable Unavailable Unavailable Primary Care Provider Unavailjerry e Ciera BRUMFIELD, Radha Unavailable Qasim Daley MD Primary Care Provider [facility] Care Unava ilable DANIS EMERY Consulting Unavailable DANIS EMERY Admitting Unavailable DANIS EMERY Attending Unavailable Robert Viera Consulting Unavailable BLAISE, DR LOREDO Primary Care Unavailable BLAISE, DR LOREDO Admitting Unavailable LAKEZAIDA Consulting Unavailable BLAISE, DR LOREDO Attending Unavailable BLAISE, DR LOREDO Admitting Unavailable [facility] Care Unava ilable BLAISE, DR LOREDO Attending Unavailable BLAISE, DR LOREDO Admitting Unavailable [facility] Care Unava ilable BLAISE, DR LOREDO Attending Unavailable BLAISE, DR LOREDO Consulting Unavailable BLAISE, DR LOREDO Primary Care Unavailable BLAISE, DR LOREDO Admitting Unavailable BLAISE, DR LOREDO Attending Unavailable BLAISE, DR LOREDO Consulting Unavailable BLAISE, DR LOREDO Admitting Unavailable [facility] Primary Care Unavailable BLAISE, DR LOREDO Attending Unavailable BERNADETTE NULL Attending Unavailable BERNADETTE NULL Consulting Unavailable BERNADETTE NULL Admitting Unavailable [facility] Care Unava ilable Unavailable Primary Care Provider Unavailabl e NO FAMILY, PHYSICIAN Primary Care Provider Unava ilable MD Tom Jus Admit Provider MD Tom Jus Attending Provider Radha Vang MD Unavailable Qasim Daley MD Primary Care Provider Bessy Medina Unavailable Jus Santos Admitting Unavailable NO FAMILY, PHYSICIAN Primary Care Unavailable Hardy Jones Attending Unavailab le RobertHardy pascual Admitting Unavailab le Robert, Hardy Attending Unavailab le NO FAMILY, PHYSICIAN Primary Care Unavailable SERVICES, [facility] Care Unava ilable MORTEZA, KIAH Bob Attending Unavailab le NEVERAUSKAS, KIAH Bob Attending Unavailab le NEVERAUSKAS, KIAH Bob Referring Unavailab le SERVICES, [facility] Unava ilable SERVICES, [facility] Unava ilable YULISA TOLEDO Attending Unavailable PARIS, YULISA Westbrook Attending Unavailable PARIS, YULISA [place] Referring Unavailable SERVICES, [facility] Unava ilable SERVICES, [facility] Unava ilable SERVICES, [facility] Unava ilable MORTEZA, KIAH Bob Attending Unavailab DELROY Longoria Admitting Unavailable SERVICES, [facility] Unava ilable PAREKH, ALISON Attending Unavailable SATISH ESCALANTE Admitting Unavailable PAREKH, ALISON Attending Unavailable PAREKH, ALISON Referring Unavailable SERVICES, [facility] Unava ilable SATISH ESCALANTE Attending Unavailable SATISH ESCALANTE Referring Unavailable SERVICES, [facility] Unava ilable Yola Daley MD, Qasim Primary Care Provider YASMIN BAEZ Attending Unavailable QASIM HINOJOSA Primary Care Unavailabl e Allergies Allergy Classification Reported Allergen(s) Allergy Type Date of Onset Reaction(s) Facility (20 sources) Latex; Translations: [LATEX] Drug Allergy 7 Rash [facility] (20 sources) levoFLOXacin; Translations: [LEVOFLOXACIN] Drug Allergy 0 Other: See Comments [facility] (20 sources) metroNIDAZOLE; Translations: [METRONIDAZOLE] Drug Allergy 5 Vomiting [facility] (2 sources) Latex Drug allergy (disorder) 7 [facility] (1 source) levoFLOXacin Drug Allergy [facility] (2 sources) metroNIDAZOLE Drug Allergy 5 [facility] (9 sources) Vancomycin; Translations: [VANCOMYCIN] Drug Allergy 2 Hives [facility] (7 sources) Adhesive Tape-Silicones; Translations: [ADHESIVE TAPE-SILICONES] Propensity to adverse reactions to drug 2 Other: See Comments [facility] (2 sources) raspberry extract; Translations: [raspberry] Drug Allergy 3 Unknown Reaction [facility] (2 sources) kiwi; Translations: [kiwi] Allergy to substance 3 Unknown Reaction [facility] (1 source) Latex Drug allergy (disorder) 4 [facility] (1 source) metroNIDAZOLE Drug Allergy 4 [facility] (1 source) Vancomycin Drug Allergy 4 [facility] Medications Current Medications Medication Drug Class(es) Dates Sig (Normalized) Sig (Original) [id number] actuat albuterol 0.09 mg/actuat metered dose [...] wheezing/shortness of breath. 1 Each 3 03/18/2023 Active Ventolin HFA Act sierra Comment on above: Inhale 2 Puffs as in structed every 6 hours as needed. Inhale 2 Puffs as in structed every 6 hours as needed for wheezing/shortness of breath. albuterol 0.833 mg/ml / ipratropium bromide 0.167 mg/ml inhalation solution (15 sources) Anticholinergic, beta2-Adrenergic Agonist Start: 2 End: 4 take 3 mL by inhalation every six hours as needed ipratropium-albute rol (DUONEB) 0.5 mg-3 mg(2.5 mg base)/3 mL nebu Inhale 3 mL as instructed every 6 hours as needed for wheezing/shortness of breath. 270 mL 3 03/18/2023 Active Start: 07-13-2021 ipratropium-al buterol (DUONEB) 0.5 mg-3 mg(2.5 mg base)/3 mL nebu USE 1 AMPULE IN NEBULIZER 4 TIMES DAILY 0 07/13/2021 Suspended Comment on above: USE 1 AMPULE IN NEBU LIZER 4 TIMES DAILY Inhale 3 mL as instr ucted every 6 hours as needed for wheezing/shortness of breath. ARIPiprazole 400 mg extended release prefilled syringe (6 sources) Atypical Antipsychotic Start: ARIPiprazole monohydrate (RIAZ GALARZA) 400 mg sers injection as directed Intramuscular Once a month for 30 days 09/23/2022 Active Comment on above: as directed Intramus cular Once a month for 30 days Budesonide / formoterol (20 sources) Corticosteroid, beta2-Adrenergic Agonist Start: take 2 puff(s) by inhalation twice daily budesonide-formotero l (SYMBICORT) 160-4.5 mcg/actuation inhaler Inhale 2 Puffs as instructed two times a day. 11 g 11 03/18/2023 Active Start: 03-18-2023 End: 04-17-2023 take 2 puff(s) by inhalation twice daily [...] PO Daily 60 March 12, 2023 12:00am citalopram 10 mg oral tablet (6 sources) Serotonin Reuptake Inhibitor Start: 023 take 1 tablet by mouth once daily in the morning citalopram hydrobromide (CELEXA) 10 mg tablet TAKE 1 TABLET BY MOUTH EVERY DAY IN THE MORNING FOR 15 DAYS 03/12/2023 Active Comment on above: TAKE 1 TABLET BY AIDEN TH EVERY DAY IN THE MORNING FOR 15 DAYS hydrOXYzine pamoate 50 mg oral capsule (6 sources) Antihistamine Start: take 1 capsule by mouth every six hours as needed for anxiety hydrOXYzine pamoate (VISTARIL) 50 mg capsule TAKE 1 CAPSULE BY MOUTH EVERY 6 HOURS NEEDED FOR ANXIETY FOR 15 DAYS 03/12/2023 Active Comment on above: TAKE 1 CAPSULE BY MO UTH EVERY 6 HOURS NEEDED FOR ANXIETY FOR 15 DAYS lamoTRIgine 25 mg oral tablet (6 sources) Mood Stabilizer, Anti-epileptic Agent Start: take 1 tablet by mouth once daily lamoTRIgine (LAMICTAL) 25 mg tablet TAKE 1 TABLET BY MOUTH EVERY DAY FOR 15 DAYS 03/12/2023 Active Comment on above: TAKE 1 TABLET BY AIDEN TH EVERY DAY FOR 15 DAYS loperamide hydrochloride 2 mg oral capsule (6 sources) Opioid Agonist Start: End: take 1 capsule by mouth four times daily as needed loperamide (IMODIUM) 2 mg cap(s) TAKE 1 CAPSULE BY MOUTH 4 TIMES DAILY NEEDED 0 06/27/2021 09/14/2021 Discontinued (Discontinued by Patient) Comment on above: TAKE 1 CAPSULE BY MO UTH 4 TIMES DAILY NEEDED ondansetron 4 mg [...] on above: Take 50 mg by mouth. traZODone hydrochloride 50 mg oral tablet (6 sources) Serotonin Reuptake Inhibitor Start: 023 take 1 tablet by mouth once daily at bedtime as needed traZODone (DESYREL) 50 mg tablet TAKE 1 TABLET BY MOUTH EVERY DAY AT BEDTIME NEEDED FOR INSOMNIA FOR 15 DAYS 03/12/2023 Active Comment on above: TAKE 1 TABLET BY AIDEN TH EVERY DAY AT BEDTIME NEEDED FOR INSOMNIA FOR 15 DAYS Completed/Discontinued Medications Medication Drug Class(es) Dates Sig (Normalized) Sig (Original) acetaminophen 500 mg oral tablet (9 sources) Start: 09-19-2021 End: 03-18-2023 take 2 tablets by mouth every six hours acetaminophen (TYLENOL) 500 mg tablet Take 2 tablets by mouth every 6 hours. 0 09/19/2021 03/18/2023 Discontinued take 2 tablets by mo uth every six hours as needed acetaminophen (TYLENOL) 325 mg tablet Ta ke 650 mg by mouth every 6 hours as needed. 0 Active Comment on above: Take 650 mg by mouth every 6 hours as needed. Take 2 tablets by mo uth every 6 hours. aspirin/acetaminophen/ caffeine (EXCEDRIN MIGRAINE [...] by aiden th as needed (for migraine). [id number] 0.3 ml EPINEPHrine 1 mg/ml auto-injector (17 sources) alpha-Adrenergic Agonist, beta-Adrenergic Agonist, Catecholamine Start: 04-13-20 19 End: 03-18-20 23 EPINEPHrine (EPIPEN) 0.3 mg/0.3 mL auto-injector Inject 0.3 mg intramuscularly as needed (allergic reaction). 0 04/13/2019 03/18/2023 Discontinued Comment on above: Inject 0.3 mg intram uscularly at bedtime as needed. Inject 0.3 mg intram uscularly as needed (allergic reaction). famotidine 10 mg oral tablet (9 sources) Histamine-2 Receptor Antagonist Start: 04-01-20 End: 09-15-19 famotidine (PEPCID) 10 mg tablet 20 mg. 0 04/01/2020 09/14/2021 Discontinued (Discontinued by Patient) Comment on above: 20 mg. formoterol / Mometasone (1 source) Corticosteroid, beta2-Adrenergic Agonist Dulera Not-Taking/AK N ibuprofen 200 mg oral tablet (9 sources) Nonsteroidal Anti-inflammatory Drug End: 03-18-20 23 take 1 tablet by mouth every six hours as needed ibuprofen (ADVIL) 200 mg tablet Take 200 mg by mouth every 6 hours as needed for pain. 0 03/18/2023 Discontinued Comment on above: Take 200 mg by mouth every 6 hours as needed. Take 200 mg by mouth every 6 hours as needed for pain. metoprolol tartrate 25 mg oral tablet (7 sources) beta-Adrenergic Mikaela Start: 09-20-19 End: 03-18-20 23 take 1 tablet by mouth every twelve hours metoprolol tartrate, short acting, (LOPRESSOR) 25 mg tablet Take 1/2 tablet by mouth every 12 hours. 30 tablet 0 09/19/2021 03/18/2023 Discontinued Comment on above: Take 1/2 tablet by out every 12 hours. Sgcmsulm-Ao-Lxe-Fe- FA tab (9 sources) End: 09-15-19 22 take 1 tablet by mouth once Rekdmzaw-Gy-Xzj-Fe-FA tab Take 1 tablet by mouth. 0 09/14/2021 Discontinued (Discontinued by Patient) take 1 tablet by mouth once Pren atal Yksqizgy-Ev-Wgm-Fe-FA tab Take 1 tablet by mouth. 0 Active Comment on above: Take 1 tablet by aiden th. promethazine hydrochloride 12.5 mg oral tablet (9 sources) Phenothiazine End: 022 take 1 tablet by mouth every eight [...] for pain for up to 7 days. Problems Active Problems Problem Classification Problem Date Documented Date Episodic/Chronic Allergic reactions (4 sources) Unspecified contact dermatitis, unspecified cause; Translations: [UNS CONTACT DERMATITIS UNS CAUSE] Onset: 09-21-2021 Episodic Anxiety disorders (13 sources) Posttraumatic stress disorder; Translations: [Post-traumatic stress disorder, unspecified] Onset: 09-12-2021 Chronic Asthma (18 sources) Uncomplicated asthma; Translations: [Unspecified asthma, uncomplicated] Onset: 02-06-2019 Chronic Esophageal disorders (2 sources) Gastroesophageal reflux disease; Translations: [GERD [Gastroesophageal reflux disease]] Onset: 09-06-2023 Chronic Headache; including migraine (13 sources) Migraine; Translations: [Migraine, unspecified, not intractable, without status migrainosus] Onset: 09-12-2021 Chronic Malignant neoplasm without specification of site (1 source) Primary malignant neoplasm; Translations: [Malignant (primary) neoplasm, unspecified] 08-13-2021 Chronic Other aftercare (1 source) Other usp (current) drug therapy; Translations: [OTH NURSING HOME CURRENT DRUG THERAPY] Onset: 09-24-2021 Episodic Other lower respiratory disease (1 source) Pulmonary granuloma; Translations: [Pulmonary fibrosis, unspecified] 03-18-2023 Chronic Other lower respiratory disease (1 source) Multiple [...] Chronic Other nutritional; endocrine; and metabolic disorders (12 sources) Obesity; Translations: [Obesity, unspecified] Onset: 09-12-2021 09-12-2021 Chronic Other screening for suspected conditions (not mental disorders or infectious disease) (2 sources) Cancer cervix screening status; Translations: [Encounter for screening for malignant neoplasm of cervix] 03-26-2024 Episodic Residual codes; unclassified (1 source) Other specified postprocedural states; Translations: [OT SPECIFIED POSTPROCEDURAL STATES] Onset: 09-24-2021 Episodic Residual codes; unclassified (1 source) Patient noncompliance - general; Translations: [Patient non adherence] 03-18-2023 Episodic Skin and subcutaneous tissue infections (1 source) Cellulitis of right finger Episodic Substance-related disorders (14 sources) Smoker; Translations: [Nicotine dependence, unspecified, uncomplicated] [...] Translations: [ACUTE BRONCHITIS UNSPECIFIED] Onset: 12-29-2020 Episodic Mood disorders (10 sources) Bipolar I disorder; Translations: [Bipolar disorder, unspecified] Onset: 09-12-2021 Resolved: 09-12-2021 Chronic Nonspecific chest pain (3 sources) Chest pain, unspecified; Translations: [Chest pain] Onset: 09-06-2023 Episodic Other lower respiratory disease (1 source) Dyspnea Onset: 04-03-2017 Episodic Other lower respiratory disease (20 sources) Nodule of lung; Translations: [Solitary pulmonary nodule] Onset: 08-22-2021 Episodic Other lower respiratory disease (3 sources) [...] Translations: [Pneumonia, unspecified organism] Onset: 11-05-2023 Episodic Screening and history of mental health and substance abuse codes (5 sources) Ex-smoker; Translations: [Personal history of nicotine dependence] Onset: 09-12-2021 Resolved: 09-12-2021 Episodic Results Test Name Value Interpretation Reference Range Facility [facility] 03-26-2024 CNOV Office Visit (HEMACO ) SANDEE NULL ([id number]) 1990 F Date Time Provider Department 03/26/24 9:20 AM YASMIN BAEZ During your visit today, we recorded the following information about you: Yasmin Baez APRN.CNP 03/27/2024 7:15 PM Signed Specimen was collected by a licensed professional volunteer provider. The sensitive examination was discussed with the Patient or Patient's Authorized Safe Technician. As applicable, any other physician, advance practice provider, medical student, or other health professional student that will be observing or involved in the sensitive examination for educational or training purposes was discussed with the Patient or Authorized Safe Technician. The Patient or Authorized Safe Technician has agreed to proceed with the sensitive examination. (Sensitive examination includes inspection and/or palpation of the breasts, pelvis, prostate and anorectal regions) Patient was seen for cervical cancer screening. [facility] on March 26 2024. Yasmin Baez APRN.CNP Allergies As of Date: 03/26/2024 Noted Allergy Reaction ADHESIVE TAPE-SILICONES 10/19/2021 14 - Other: See Comments Comments: Blisters, peeling skin LATEX 01/19/2017 2 - Rash LEVOFLOXACIN 04/04/2020 14 - Other: See Comments Comments: tendenitis METRONIDAZOLE 12/02/2014 11 - Vomiting VANCOMYCIN 10/19/2021 4 - Hives Date Reviewed: 03/18/2023 Reviewed by: Perico Saucedo MA - Fully Assessed Primary Visit Diagnosis:Screening for malignant neoplasm of cervix [Z12.4] Prescriptions as of 03/27/2024 - citalopram hydrobromide (CELEXA) 10 mg tablet TAKE 1 TABLET BY MOUTH EVERY DAY IN THE MORNING FOR 15 DAYS - lamoTRIgine (LAMICTAL) 25 mg tablet TAKE 1 TABLET BY MOUTH EVERY DAY FOR 15 DAYS - hydrOXYzine pamoate (VISTARIL) 50 mg capsule TAKE 1 CAPSULE BY MOUTH EVERY 6 HOURS NEEDED FOR ANXIETY FOR 15 DAYS - traZODone (DESYREL) 50 mg tablet TAKE 1 TABLET BY MOUTH EVERY DAY AT BEDTIME NEEDED FOR INSOMNIA FOR 15 DAYS - ARIPiprazole monohydrate (ABILIFY MAINTENA) 400 mg sers injection as directed Intramuscular Once a month for 30 days - albuterol HFA (PROVENTIL HFA, VENTOLIN HFA) 90 mcg/actuation inhaler Inhale 2 Puffs as instructed every 6 hours as needed for wheezing/shortness of breath. - ipratropium-albuterol (DUONEB) 0.5 mg-3 mg(2.5 mg base)/3 mL nebu Inhale 3 mL as instructed every 6 hours as needed for wheezing/shortness of breath. - budesonide-formoterol (SYMBICORT) 160-4.5 mcg/actuation inhaler Inhale 2 Puffs as instructed two times a day. Meds Comments as of 09/12/2021: Pepcid if normally taken in the morning. Inhalers Problem List As Of Date 03/26/2024 Noted Resolved Lung nodule [R91.1] 08/22/2021 Migraines [G43.909] 09/12/2021 Asthma [J45.909] 09/12/2021 Former smoker [Z87.891] 09/12/2021 09/12/2021 Obesity [E66.9] 09/12/2021 PTSD (post-traumatic stress disorder) [F43.10] 09/12/2021 Bipolar 1 disorder (HCC) [F31.9] 09/12/2021 09/12/2021 Smoker [F17.200] 09/12/2021 Left lower lobe pulmonary nodule [R91.1] 09/18/2021 Encounter Status:Closed by YASMIN BAEZ on 03/27/24 Normal [facility] HIGH RISK HUMAN PAPILLOMA KARIE (HPV), PCR FOR DETECTION AND GENOTYPINGon 03-26-2024 HPV 16 Ag Ql (Unsp spec) Not detected Normal Not detected [facility] Comment on above: Order Comment: Speci men Type: FLUID SPECIMEN Ordering Facility: [facility] Address: [address] [place] [address] Performed By: #### H PVHRT #### [facility] CLIA [id number] [address] [place] [address] [place] [address] [place] HPV 18 Ag Ql (Unsp spec) Not detected Normal Not detected [facility] Comment on above: Order Comment: Speci men Type: FLUID SPECIMEN Ordering Facility: [facility] Address: [address] [place] [address] Performed By: #### H PVHRT #### [facility] CLIA [id number] [address] [place] [address] [place] HPV 31+33+35+39+45+51+52+ 56+58+59+66+68 DNA SULLY+probe Ql (Cvx) Not detected Normal Not detected [facility] Comment on above: Order Comment: Speci men Type: FLUID SPECIMEN Ordering Facility: [facility] Address: [address] [place] [address] Result Comment: High Risk HPV Other Type includes HPV types 31, 33, 35, 39, 45, 51, 52, 56, 58, 59, 66 and 68. Performed By: #### H PVHRT #### [facility] CLIA [id number] [address] [place] [address] [place] PAP TESTon 03-26-2024 ADEQUACY Satisfactory for interpretation. Normal [facility] Comment on above: Order Comment: Speci men Type: FLUID SPECIMEN Ordering Facility: [facility] Address: [address] [place] [address] Performed By: #### L [id number] #### [facility] CLIA [id number] [address] [place] [address] [place] CASE REPORT Normal [facility] Comment on above: Order Comment: Speci men Type: FLUID SPECIMEN Ordering Facility: [facility] Address: [address] [place] [address] Result Comment: Gyne cologic Cytology Report Case: [id number] Authorizing Provider: Yasmin Baez APRN.GRAPHIC ART SALES REPRESENTATIVE Collected: 03/26/2024 03:39 PM Ordering Location[facility] Received: 03/26/2024 05:42 PM First Screen: Sanjanaa, Alis, CT, ASCP Specimen: Pap Test, ThinPrep, Cervix Performed By: #### L [id number] #### [facility] CLIA [id number] [address] [place] [address] [place] CLINICAL HISTORY, CYTOLOGY, FORMULA WEIGHER Routine Exam Normal [facility] Comment on above: Order Comment: Speci men Type: FLUID SPECIMEN Ordering Facility: [facility] Address: [address] [place] [address] Performed By: #### L [id number] #### [facility] CLIA [id number] [address] [place] [address] [place] FINAL PERFORMING LAB Normal [facility] Comment on above: Order Comment: Speci men Type: FLUID SPECIMEN Ordering Facility: [facility] Address: [address] [place] [address] Result Comment: Tech nical component, human resources associate screening performed at [facility], [address] [place] [address] CLIA# [id number] Diagnostic interpretation performed at [facility], [address] [place], [place] [id number] CLIA# [id number] Recreation Teacher: Tyler Simon M.D. Performed By: #### L [id number] #### [facility] CLIA [id number] [address] [place] [address] [place] INTERPRETATION, CYTOLOGY, FORMULA WEIGHER Normal [facility] Comment on above: Order Comment: Speci men Type: FLUID SPECIMEN Ordering Facility: [facility] Address: [address] [place] [address] Result Comment: Nega tive for intraepithelial lesion or malignancy. Performed By: #### L [id number] #### [facility] CLIA [id number] [address] [place] [address] [place] LMP 03/13/2024 Normal [facility] Comment on above: Order Comment: Speci men Type: FLUID SPECIMEN Ordering Facility: [facility] Address: [address] [place] [address] Performed By: #### L [id number] #### [facility] CLIA [id number] [address] [place] [address] [place] PAP DISCLAIMER COMMENT The Pap Smear is a screening test for cervical cancer. False negative results occur with all screening tests, emphasizing the need for rescreening at recommended intervals, and clinical correlation. Normal [facility] Comment on above: Order Comment: Speci men Type: FLUID SPECIMEN Ordering Facility: [facility] Address: [address] [place] [address] Performed By: #### L [id number] #### [facility] CLIA [id number] [address] [place] [address] [place] PAP TAFE TEACHER COMMENT This specimen has be en analyzed by the ThinPrep Imaging System, an automated imaging and review system, which assists the laboratory in evaluating cells on ThinPrep Pap tests. Following automated imaging, selected roach from every slide are reviewed by a human resources associate. Normal [facility] Comment on above: Order Comment: Speci men Type: FLUID SPECIMEN Ordering Facility: [facility] Address: [address] [place] [address] Performed By: #### L [id number] #### [facility] CLIA [id number] [address] [place] [address] [place] CBC AND AUTO DIFFon 02-14-20 24 ABSOLUTE BASOPHIL 0.0 X10E9/L Normal 0.0-0.2 [facility] Comment on above: Performed By: #### C LEIGHTON CMP, 3040-3 #### [facility] ([id number]) [address] [place] [address] ABSOLUTE NEUTROPHIL 15.0 X10E9/L High 1.5-6.6 [facility] Comment on above: Performed By: #### C LEIGHTON CMP, 3040-3 #### [facility] ([id number]) [address] [place] [address] Basophils/100 WBC (Bld) 0.1 % Normal [facility] [place] Comment on above: Performed By: #### C NAIN MANZANARES, 3 #### [facility] ([id number]) [address] [place] [address] Eosinophils (Bld) [#/Vol] 0.0 10*3/uL Normal 0.0-0.4 [facility] Comment on above: Performed By: #### Patrizia MANZANARES CMP, 3039-3 #### [facility] ([id number]) [address] [place] [address] Eosinophils/100 WBC (Bld) 0.1 % Normal [facility] Comment on above: Performed By: #### Patrizia MANZANARES CMP, 3 #### [facility] ([id number]) [address] [place] [address] Erythrocyte distribution width (RBC) [Ratio] 14.3 % Normal 11.5-15.0 [facility] [place] Comment on above: Performed By: #### Patrizia MANZANARES CMP, 3039-07 #### [facility] ([id number]) [address] [place] [address] Hematocrit (Bld) [Volume fraction] 39.2 % Normal 35-47 [facility] [place] Comment on above: Performed By: #### Patrizia MANZANARES CMP, 3 #### [facility] ([id number]) [address] [place] [address] 99973 Hemoglobin (Bld) [Mass/Vol] 13.0 g/dL Normal 11.7-15.5 [facility] Comment on above: Performed By: #### Patrizia MANZANARES CMP, 3039-3 #### [facility] ([id number]) [address] [place] [address] 18202 Lymphocytes (Bld) [#/Vol] 1.1 10*3/uL Normal 1.0-3.5 [facility] [place] Comment on above: Performed By: #### Patrizia MANZANARES CMP, 3039-07 #### [facility] ([id number]) [address] [place] [address] 23819 Lymphocytes/100 WBC (Bld) 6.9 % Normal [facility] [place] Comment on above: Performed By: #### Patrizia MANZANARES, CMP, 3039- #### [facility] ([id number]) [address] [place] [address] 54995 MCH (RBC) [Entitic mass] 28.5 pg Normal 27-34 [facility] [place] Comment on above: Performed By: #### Patrizia MANZANARES, CMP, 3039-07 #### [facility] ([id number]) [address] [place] [address] 99531 MCHC (RBC) [Mass/Vol] 33.2 g/dL Normal 32-36 [facility] Comment on above: Performed By: #### Patrizia MANZANARES, CMP, 3039-07 #### [facility] ([id number]) [address] [place] [address] 08502 MCV (RBC) [Entitic vol] 86 fL Normal 80-100 [facility] [place] Comment on above: Performed By: #### Patrizia MANZANARES, CMP, 3039-07 #### [facility] ([id number]) [address] [place] [address] 89602 Monocytes (Bld) [#/Vol] 0.1 10*3/uL Normal 0-0.9 [facility] [place] Comment on above: Performed By: #### Patrizia MANZANARES, CMP, 3 #### [facility] ([id number]) [address] [place] [address] 56523 Monocytes/100 WBC (Bld) 0.7 % Normal [facility] Comment on above: Performed By: #### Patrizia MANZANARES, CMP, 3039-3 #### [facility] ([id number]) [address] [place] [address] 06769 Neutrophils/100 WBC (Bld) 92.2 % Normal [facility] [place] Comment on above: Performed By: #### Patrizia MANZANARES CMP, 3039-3 #### [facility] ([id number]) [address] [place] [address] 54666 Platelet mean volume (Bld) [Entitic vol] 8.7 fL Normal 7-12 [facility] [place] Comment on above: Performed By: #### Patrizia MANZANARES CMP, 3039-3 #### [facility] ([id number]) [address] [place] [address] 18284 Platelets (Bld) [#/Vol] 311 10*3/uL Normal 150-450 [facility] [place] Comment on above: Performed By: #### Patrizia MANZANARES CMP, 3039-3 #### [facility] ([id number]) [address] [place] [address] 75431 RBC COUNT 4.56 X10E12/L Normal 3.80-5.20 [facility] [place] Comment on above: Performed By: #### Patrizia MANZANARES CMP, 3 #### [facility] ([id number]) [address] [place] [address] 29982 WBC (Bld) [#/Vol] 16.3 10*3/uL High 4.0-11.0 [facility] Comment on above: Performed By: #### Patrizia MANZANARES CMP, 3 #### [facility] ([id number]) [address] [place] [address] 61438 COMPREHENSIVE METABOLIC PANE Buck 02-14-2024 Albumin [Mass/Vol] 3.6 g/dL Normal 3.2-5.3 [facility] Comment on above: Performed By: #### Patrizia MANZANARES CMP, 3039-3 #### [facility] ([id number]) [address] [place] [address] 30788 ALP [Catalytic activity/Vol] 84 U/L Normal 39-130 [facility] [place] Comment on above: Performed By: #### C LEIGHTON CMP, 3039-3 #### [facility] ([id number]) [address] [place] [address] 01035 ALT [Catalytic activity/Vol] 18 U/L Normal 0-31 [facility] [place] Comment on above: Performed By: #### Patrizia MANZANARES CMP, 3 #### [facility] ([id number]) [address] [place] [address] 02341 Anion gap [Moles/Vol] 8 mmol/L Normal 5-15 [facility] Comment on above: Performed By: #### Patrizia MANZANARES CMP, 3039-07 #### [facility] ([id number]) [address] [place] [address] 37669 AST [Catalytic activity/Vol] 19 U/L Normal 0-41 [facility] [place] Comment on above: Performed By: #### C LEIGHTON, CMP, 3039-07 #### [facility] ([id number]) [address] [place] [address] 55382 Bilirubin [Mass/Vol] 0.3 mg/dL Normal 0.3-1.2 [facility] Comment on above: Performed By: #### Patrizia BCA CMP, 3039-07 #### [facility] ([id number]) [address] [place] [address] 10584 Calcium [Mass/Vol] 8.4 mg/dL Low 8.5-10.5 [facility] Comment on above: Performed By: #### C BCA, CMP, 3 #### [facility] ([id number]) [address] [place] [address] 16520 Chloride [Moles/Vol] 108 mmol/L Normal 98-109 [facility] Comment on above: Performed By: #### Patrizia BCA, CMP, 3040-3 #### [facility] ([id number]) [address] [place] [address] 05274 CO2 [Moles/Vol] 20 mmol/L Low 22-32 [facility] [place] Comment on above: Performed By: #### C NAIN MANZANARES, 3039-3 #### [facility] ([id number]) [address] [place] [address] 15958 Creatinine [Mass/Vol] 0.66 mg/dL Normal 0.40-1.00 [facility] Comment on above: Result Comment: METH OD TRACEABLE TO IDMS STANDARD Performed By: #### C NAIN MANZANARES, 3 #### [facility] ([id number]) [address] [place] [address] 13421 eGFR (CKD-EPI) NON-RACE DEPENDENT >90 Normal >59 [facility] Comment on above: Result Comment: Reported eGFR is based on the CKD-EPI 2020 equation that does not use a race coefficient. Performed By: #### C NAIN MANZANARES, 3 #### [facility] ([id number]) [address] [place] [address] 71818 Glucose [Mass/Vol] 187 mg/dL High 65-99 [facility] Comment on above: Performed By: #### Patrizia MANZANARES CMP, 3 #### [facility] ([id number]) [address] [place] [address] 15409 Potassium [Moles/Vol] 4.0 mmol/L Normal 3.5-5.0 [facility] Comment on above: Performed By: #### C NAIN MANZANARES, 3 #### [facility] ([id number]) [address] [place] [address] 04632 Protein [Mass/Vol] 7.2 g/dL Normal 6.0-8.0 [facility] Comment on above: Performed By: #### C NAIN MANZANARES, 3039-3 #### [facility] ([id number]) [address] [place] [address] 78442 Sodium [Moles/Vol] 136 mmol/L Normal 134-146 [facility] Comment on above: Performed By: #### C NAIN MANZANARES, 3040-3 #### [facility] ([id number]) [address] [place] [address] 64515 Urea nitrogen [Mass/Vol] 13 mg/dL Normal 5-23 [facility] Comment on above: Performed By: #### C NAIN MANZANARES, 3040-3 #### [facility] ([id number]) [address] [place] [address] 25567 MAGNESIUMon 02-14-2024 Magnesium [Mass/Vol] 2.1 mg/dL Normal 1.8-2.6 [facility] Comment on above: Performed By: #### C NAIN MANZANARES, 3040-3 #### [facility] ([id number]) [address] [place] [address] 04454 Procalcitonin IA [Mass/Vol]o n 02-14-2024 PROCALCITONIN <0.05 Normal <0.05 [facility] [place] Comment on above: Result Comment: NOTE <0.50 ng/mL - Low risk of severe sepsis and/or septic shock. <2.00 ng/mL - Recommend retesting within 6-24 hours. >2.00 ng/mL - High risk of sepsis and/or septic shock. Performed By: #### C NAIN MANZANARES, 3040-3 #### [facility] ([id number]) [address] [place] [address] 69857 CBC AND AUTO DIFFon 02-13-20 24 ABSOLUTE BASOPHIL 0.1 X10E9/L Normal 0.0-0.2 [facility] Comment on above: Performed By: #### 2 106-3 #### [facility] ([id number]) [address] [place] [address] 79417 ABSOLUTE NEUTROPHIL 8.3 X10E9/L High 1.5-6.6 [facility] Comment on above: Performed By: #### 2 106-3 #### [facility] ([id number]) [address] [place] [address] 04363 Basophils/100 WBC (Bld) 0.7 % Normal [facility] Comment on above: Performed By: #### 2 106-3 #### [facility] ([id number]) [address] [place] [address] 27820 Eosinophils (Bld) [#/Vol] 1.0 10*3/uL High 0.0-0.4 [facility] Comment on above: Performed By: #### 2 106-3 #### [facility] ([id number]) [address] [place] [address] 99944 Eosinophils/100 WBC (Bld) 8.0 % Normal [facility] Comment on above: Performed By: #### 2 106-3 #### [facility] ([id number]) [address] [place] [address] 76837 Erythrocyte distribution width (RBC) [Ratio] 14.3 % Normal 11.5-15.0 [facility] Comment on above: Performed By: #### 2 106-3 #### [facility] ([id number]) [address] [place] [address] 50731 Hematocrit (Bld) [Volume fraction] 37.9 % Normal 35-47 [facility] Comment on above: Performed By: #### 2 106-3 #### [facility] ([id number]) [address] [place] [address] 01119 Hemoglobin (Bld) [Mass/Vol] 12.7 g/dL Normal 11.7-15.5 [facility] Comment on above: Performed By: #### 2 106-3 #### [facility] ([id number]) [address] [place] [address] 92237 Lymphocytes (Bld) [#/Vol] 2.9 10*3/uL Normal 1.0-3.5 [facility] Comment on above: Performed By: #### 2 106-3 #### [facility] ([id number]) [address] [place] [address] 47054 Lymphocytes/100 WBC (Bld) 22.7 % Normal [facility] Comment on above: Performed By: #### 2 106-3 #### [facility] ([id number]) [address] [place] [address] 83682 MCH (RBC) [Entitic mass] 28.3 pg Normal 27-34 [facility] Comment on above: Performed By: #### 2 106-3 #### [facility] ([id number]) [address] [place] [address] 04169 MCHC (RBC) [Mass/Vol] 33.5 g/dL Normal 32-36 [facility] Comment on above: Performed By: #### 2 106-3 #### [facility] ([id number]) [address] [place] [address] 69119 MCV (RBC) [Entitic vol] 85 fL Normal 80-100 [facility] Comment on above: Performed By: #### 2 106-3 #### [facility] ([id number]) [address] [place] [address] 83317 Monocytes (Bld) [#/Vol] 0.6 10*3/uL Normal 0-0.9 [facility] Comment on above: Performed By: #### 2 106-3 #### [facility] ([id number]) [address] [place] [address] 41773 Monocytes/100 WBC (Bld) 4.5 % Normal [facility] Comment on above: Performed By: #### 2 106-3 #### [facility] ([id number]) [address] [place] [address] 76096 Neutrophils/100 WBC (Bld) 64.1 % Normal [facility] Comment on above: Performed By: #### 2 106-3 #### [facility] ([id number]) [address] [place] [address] 24824 Platelet mean volume (Bld) [Entitic vol] 8.0 fL Normal 7-12 [facility] Comment on above: Performed By: #### 2 106-3 #### [facility] ([id number]) [address] [place] [address] 65331 Platelets (Bld) [#/Vol] 307 10*3/uL Normal 150-450 [facility] Comment on above: Performed By: #### 2 106-3 #### [facility] ([id number]) [address] [place] [address] 97144 RBC COUNT 4.48 X10E12/L Normal 3.80-5.20 [facility] Comment on above: Performed By: #### 2 106-3 #### [facility] ([id number]) [address] [place] [address] 31035 WBC (Bld) [#/Vol] 12.9 10*3/uL High 4.0-11.0 [facility] Comment on above: Performed By: #### 2 106-3 #### [facility] ([id number]) [address] [place] [address] 42889 COMPREHENSIVE METABOLIC PANE Buck 02-13-2024 Albumin [Mass/Vol] 3.5 g/dL Normal 3.2-5.3 [facility] Comment on above: Performed By: #### 2 106-3 #### [facility] ([id number]) [address] [place] [address] 54182 ALP [Catalytic activity/Vol] 79 U/L Normal 39-130 [facility] Comment on above: Performed By: #### 2 106-3 #### [facility] ([id number]) [address] [place] [address] 37635 ALT [Catalytic activity/Vol] 20 U/L Normal 0-31 [facility] Comment on above: Performed By: #### 2 106-3 #### [facility] ([id number]) [address] [place] [address] 01327 Anion gap [Moles/Vol] 8 mmol/L Normal 5-15 [facility] Comment on above: Performed By: #### 2 106-3 #### [facility] ([id number]) [address] [place] [address] 30902 AST [Catalytic activity/Vol] 19 U/L Normal 0-41 [facility] Comment on above: Performed By: #### 2 106-3 #### [facility] ([id number]) [address] [place] [address] 02866 Bilirubin [Mass/Vol] 0.6 mg/dL Normal 0.3-1.2 [facility] Comment on above: Performed By: #### 2 106-3 #### [facility] ([id number]) [address] [place] [address] 91699 Calcium [Mass/Vol] 7.9 mg/dL Low 8.5-10.5 [facility] Comment on above: Performed By: #### 2 106-3 #### [facility] ([id number]) [address] [place] [address] 02904 Chloride [Moles/Vol] 108 mmol/L Normal 98-109 [facility] Comment on above: Performed By: #### 2 106-3 #### [facility] ([id number]) [address] [place] [address] 04242 CO2 [Moles/Vol] 21 mmol/L Low 22-32 [facility] Comment on above: Performed By: #### 2 106-3 #### [facility] ([id number]) [address] [place] [address] 51226 Creatinine [Mass/Vol] 0.53 mg/dL Normal 0.40-1.00 [facility] Comment on above: Result Comment: METH OD TRACEABLE TO IDMS STANDARD Performed By: #### 2 106-3 #### [facility] ([id number]) [address] [place] [address] 62294 eGFR (CKD-EPI) NON-RACE DEPENDENT >90 Normal >59 [facility] Comment on above: Result Comment: Reported eGFR is based on the CKD-EPI 2020 equation that does not use a race coefficient. Performed By: #### 2 106-3 #### [facility] ([id number]) [address] [place] [address] 40776 Glucose [Mass/Vol] 97 mg/dL Normal 65-99 [facility] Comment on above: Performed By: #### 2 106-3 #### [facility] ([id number]) [address] [place] [address] 51739 Potassium [Moles/Vol] 3.4 mmol/L Low 3.5-5.0 [facility] Comment on above: Performed By: #### 2 106-3 #### [facility] ([id number]) [address] [place] [address] 23631 Protein [Mass/Vol] 6.9 g/dL Normal 6.0-8.0 [facility] Comment on above: Performed By: #### 2 106-3 #### [facility] ([id number]) [address] [place] [address] 80420 Sodium [Moles/Vol] 137 mmol/L Normal 134-146 [facility] Comment on above: Performed By: #### 2 106-3 #### [facility] ([id number]) [address] [place] [address] Urea nitrogen [Mass/Vol] 13 mg/dL Normal 5-23 [facility] Comment on above: Performed By: #### 2 106-3 #### [facility] ([id number]) [address] [place] [address] CRP [Mass/Vol]on 02-13-2024 C REACTIVE PROTEIN 3.4 mg/dL High 0.000-0.744 [facility] Comment on above: Performed By: #### C BCA, 16135-8, CMP, 1988-5, 22998-8, 00203- 4, 56678-7 ####[facility] ([id number])[address] [place] [address] CT CTA CHESTon 02-13-2024 CT CTA CHEST [...] Duong MD on 02/13/2024 5:03 PM Normal [facility] Fibrin D-dimer DDU (PPP) [Ma ss/Vol]on 02-13-2024 D DIMER 257 ng/mL DDU High <255 [facility] Comment on above: Result Comment: Results >=255ng/mL [...] level. Performed By: #### 2 106-3 #### [facility] ([id number]) [address] [place] [address] 81487 HCG ( test) IA.pacoi d Ql (S)on 02-13-2024 SERUM Negative Normal NEG [facility] Comment on above: Performed By: #### C LEIGHTON, 83245-9, [facility], 1987-09, 36461-0, 05370- 4, 27632-9 ####[facility] ([id number])[address] [place] [address] 96007 Lactate (P debra) [Moles/Vol]o n 02-13-2024 LACTATE W/REFLEX 0.7 mmol/L Normal 0.4-2.0 [facility] Comment on above: Result Comment: Result did not trigger repeat Lactate, re-order if needed. Performed By: #### 3 2133-1 ####[facility] ([id number])[address] [place] [address] 67125 Natriuretic peptide B [Mass/ Vol]on 02-13-2024 Natriuretic peptide B (Bld) [Mass/Vol] 7 pg/mL Normal <100.0 [facility] Comment on above: Performed By: #### C LEIGHTON, 01764-0, CMP, 1987-09, 68031-9, 67162- 4, 10582-9 ####[facility] ([id number])[address] [place] [address] 90128 SARS/FLU A+B/RSV by NAAT/Mol formerly [facility] 02-13-2024 SARS/FLU A+B/RSV by NAAT/Molecular FLU A [...] operators who are performing tests using either [employer] or [employer] systems and is limited to laboratories that [...] repeat. Fact Sheet for Healthcare Providers: https://www.fda.gov/media/1 02968/download Fact Sheet for Patients: https://www.fda.gov/media/1 57293/download [facility] Comment on above: Performed By: #### C OVFLR ####[facility] ([id number])[address] [place] [address], [place] [address] Troponin I.cardiac High sens itivity method [Mass/Vol]on 02-13-2024 1 HOUR TROP I, HIGH SENSITIVITY <2 Normal <16 [facility] Comment on above: Performed By: #### 8 9579-7 ####[facility] ([id number])[address] [place] [address], [place] [address] TROPONIN I, HIGH SENSITIVITY <2 Normal <16 [facility] Comment on above: Performed By: #### C BCA, 31289-6, CMP, 1987-09, 13406-7, 98528- 4, 30206-3 ####[facility] ([id number])[address] [place] [address], [place] [address] URN MACROSCOPIC NURon 2023 BILIRUBIN ISMAEL Negative Normal NEG [facility] Comment on above: Performed By: #### N UM ####[facility] ([id number])[address] [place] [address], [place] [address] BLOOD/HGB ISMAEL Trace Abnormal NEG [facility] Comment on above: Performed By: #### N UM ####[facility] ([id number])[address] [place] [address], [place] [address] GLUCOSE ISMAEL Negative Normal NEG [facility] Comment on above: Performed By: #### N UM ####[facility] ([id number])[address] [place] [address], [place] [address] KETONES ISMAEL Negative Normal NEG [facility] Comment on above: Performed By: #### N UM ####[facility] ([id number])[address] [place] [address], [place] [address] LEUKOCYTE ESTERASE ISMAEL Negative Normal NEG [facility] Comment on above: Performed By: #### N UM ####[facility] ([id number])[address] [place] [address] 82857 NITRITE ISMAEL Negative Normal NEG [facility] Comment on above: Performed By: #### N UM ####[facility] ([id number])[address] [place] [address] 63299 PH ISMAEL 5.5 Normal 5.0-8.5 [facility] Comment on above: Performed By: #### N UM ####[facility] ([id number])[address] [place] [address] 25895 PROTEIN ISMAEL Negative Normal NEG [facility] Comment on above: Performed By: #### N UM ####[facility] ([id number])[address] [place] [address] 89684 SPECIFIC GRAVITY ISMAEL <=1.005 Normal 1.003-1.035 [facility] Comment on above: Performed By: #### N UM ####[facility] ([id number])[address] [place] [address] 61388 UROBILINOGEN ISMAEL 0.2 eu/dL Normal <1.1 [facility] Comment on above: Performed By: #### N UM ####[facility] ([id number])[address] [place] [address] 26505 XR CHEST 2 VWSon 02-13-2024 XR CHEST [...] Thompson MD on 02/13/2024 3:53 PM Normal [facility] XR CHEST 2 VWSon 11-05-2023 XR CHEST [...] Silveira MD on 11/05/2023 8:09 AM Normal [facility] ISMAEL FECAL OCCULT BLDon 09-06 Hemoglobin.gastrointe stinal Ql (Stl) Negative Normal NEG [facility] Comment on above: Performed By: #### 2 106-3 #### [facility] ([id number]) [address] [place] [address] 83759 CBC AND AUTO DIFFon 09-06-19 24 ABSOLUTE BASOPHIL 0.1 X10E9/L Normal 0.0-0.2 [facility] Comment on above: Performed By: #### 1 988-5, 89475-1, CMP, 88625-7, CBCA #### [facility] ([id number]) [address] [place] [address] 93899 ABSOLUTE NEUTROPHIL 8.8 X10E9/L High 1.5-6.6 [facility] Comment on above: Performed By: #### 1 988-5, 04267-2, CMP, 89019-1, CBCA #### [facility] ([id number]) [address] [place] [address] 44531 Basophils/100 WBC (Bld) 0.6 % Normal [facility] Comment on above: Performed By: #### 1 988-5, 85198-5, CMP, 11752-0, CBCA #### [facility] ([id number]) [address] [place] [address] 46398 Eosinophils (Bld) [#/Vol] 0.7 10*3/uL High 0.0-0.4 [facility] [place] Comment on above: Performed By: #### 1 988-5, 65686-5, CMP, 51582-8, CBCA #### [facility] ([id number]) [address] [place] [address] 25869 Eosinophils/100 WBC (Bld) 4.9 % Normal [facility] [place] Comment on above: Performed By: #### 1 988-5, 82976-2, CMP, 55425-0, CBCA #### [facility] ([id number]) [address] [place] [address] 97639 Erythrocyte distribution width (RBC) [Ratio] 13.0 % Normal 11.5-15.0 [facility] [place] Comment on above: Performed By: #### 1 988-5, 13308-4, CMP, 46114-8, CBCA #### [facility] ([id number]) [address] [place] [address] 70635 Hematocrit (Bld) [Volume fraction] 39.0 % Normal 35-47 [facility] [place] Comment on above: Performed By: #### 1 988-5, 04033-4, CMP, 81718-4, CBCA #### [facility] ([id number]) [address] [place] [address] 26222 Hemoglobin (Bld) [Mass/Vol] 13.2 g/dL Normal 11.7-15.5 [facility] [place] Comment on above: Performed By: #### 1 988-5, 14359-0, CMP, 33433-1, CBCA #### [facility] ([id number]) [address] [place] [address] 98468 Lymphocytes (Bld) [#/Vol] 3.4 10*3/uL Normal 1.0-3.5 [facility] [place] Comment on above: Performed By: #### 1 988-5, 67753-1, CMP, 90735-3, CBCA #### [facility] ([id number]) [address] [place] [address] 94483 Lymphocytes/100 WBC (Bld) 24.4 % Normal [facility] [place] Comment on above: Performed By: #### 1 988-5, 45618-3, CMP, 09517-1, CBCA #### [facility] ([id number]) [address] [place] [address] 23858 MCH (RBC) [Entitic mass] 28.9 pg Normal 27-34 [facility] Comment on above: Performed By: #### 1 988-5, 26891-3, CMP, 65858-3, CBCA #### [facility] ([id number]) [address] [place] [address] 77948 MCHC (RBC) [Mass/Vol] 33.7 g/dL Normal 32-36 [facility] Comment on above: Performed By: #### 1 988-5, 50962-6, CMP, 80634-1, CBCA #### [facility] ([id number]) [address] [place] [address] 53496 MCV (RBC) [Entitic vol] 86 fL Normal 80-100 [facility] [place] Comment on above: Performed By: #### 1 988-5, 65927-4, CMP, 44637-4, CBCA #### [facility] ([id number]) [address] [place] [address] 45855 Monocytes (Bld) [#/Vol] 0.9 10*3/uL Normal 0-0.9 [facility] [place] Comment on above: Performed By: #### 1 988-5, 09326-1, CMP, 48618-0, CBCA #### [facility] ([id number]) [address] [place] [address] 79993 Monocytes/100 WBC (Bld) 6.3 % Normal [facility] [place] Comment on above: Performed By: #### 1 988-5, 48842-2, CMP, 14646-7, CBCA #### [facility] ([id number]) [address] [place] [address] 06443 Neutrophils/100 WBC (Bld) 63.8 % Normal [facility] [place] Comment on above: Performed By: #### 1 988-5, 27315-2, CMP, 93591-0, CBCA #### [facility] ([id number]) [address] [place] [address] 78512 Platelet mean volume (Bld) [Entitic vol] 8.6 fL Normal 7-12 [facility] [place] Comment on above: Performed By: #### 1 988-5, 65089-3, CMP, 42481-9, CBCA #### [facility] ([id number]) [address] [place] [address] 14539 Platelets (Bld) [#/Vol] 332 10*3/uL Normal 150-450 [facility] [place] Comment on above: Performed By: #### 1 988-5, 43706-2, CMP, 65174-3, CBCA #### [facility] ([id number]) [address] [place] [address] 03461 RBC COUNT 4.56 X10E12/L Normal 3.80-5.20 [facility] [place] Comment on above: Performed By: #### 1 988-5, 49065-3, CMP, 05526-2, CBCA #### [facility] ([id number]) [address] [place] [address] 88040 WBC (Bld) [#/Vol] 13.8 10*3/uL High 4.0-11.0 [facility] Comment on above: Performed By: #### 1 988-5, 91891-1, CMP, 90225-2, CBCA #### [facility] ([id number]) [address] [place] [address] 42490 COMPREHENSIVE METABOLIC PANE Buck 09-06-2023 Albumin [Mass/Vol] 3.7 g/dL Normal 3.2-5.3 [facility] Comment on above: Performed By: #### 1 988-5, 46555-0, CMP, 04475-1, CBCA #### [facility] ([id number]) [address] [place] [address] 93860 ALP [Catalytic activity/Vol] 99 U/L Normal 39-130 [facility] [place] Comment on above: Performed By: #### 1 988-5, 88722-8, CMP, 73004-0, CBCA #### [facility] ([id number]) [address] [place] [address] 15364 ALT [Catalytic activity/Vol] 17 U/L Normal 0-31 [facility] [place] Comment on above: Performed By: #### 1 988-5, 48855-5, CMP, 47513-8, CBCA #### [facility] ([id number]) [address] [place] [address] 65413 Anion gap [Moles/Vol] 9 mmol/L Normal 5-15 [facility] Comment on above: Performed By: #### 1 988-5, 17487-3, CMP, 85735-0, CBCA #### [facility] ([id number]) [address] [place] [address] 95025 AST [Catalytic activity/Vol] 18 U/L Normal 0-41 [facility] [place] Comment on above: Performed By: #### 1 988-5, 42684-6, CMP, 72389-0, CBCA #### [facility] ([id number]) [address] [place] [address] 68702 Bilirubin [Mass/Vol] 0.2 mg/dL Low 0.3-1.2 [facility] Comment on above: Performed By: #### 1 988-5, 82753-7, CMP, 42440-2, CBCA #### [facility] ([id number]) [address] [place] [address] 92734 Calcium [Mass/Vol] 8.7 mg/dL Normal 8.5-10.5 [facility] Comment on above: Performed By: #### 1 988-5, 27996-3, CMP, 34077-0, CBCA #### [facility] ([id number]) [address] [place] [address] 10105 Chloride [Moles/Vol] 102 mmol/L Normal 98-109 [facility] Comment on above: Performed By: #### 1 988-5, 14298-6, CMP, 62609-4, CBCA #### [facility] ([id number]) [address] [place] [address] 22798 CO2 [Moles/Vol] 26 mmol/L Normal 22-32 [facility] [place] Comment on above: Performed By: #### 1 988-5, 51803-2, CMP, 26643-6, CBCA #### [facility] ([id number]) [address] [place] [address] 50421 Creatinine [Mass/Vol] 0.90 mg/dL Normal 0.40-1.00 [facility] Comment on above: Result Comment: METH OD TRACEABLE TO IDMS STANDARD Performed By: #### 1 988-5, 65922-2, NAIN, 42069-0, CBCA #### [facility] ([id number]) [address] [place] [address] 81377 GFR/1.73 sq M.predicted among non-blacks MDRD (S/P/Bld) [Vol rate/Area] 88 mL/min/{1.73_m2} Normal >59 [facility] Comment on above: Result Comment: Reported eGFR is based on the CKD-EPI 2020 equation that does not use a race coefficient. Performed By: #### 1 988-5, 05900-7, NAIN, 43752-4, CBCA #### [facility] ([id number]) [address] [place] [address] 39554 Glucose [Mass/Vol] 79 mg/dL Normal 65-99 [facility] Comment on above: Performed By: #### 1 988-5, 43890-4, NAIN, 38449-5, CBCA #### [facility] ([id number]) [address] [place] [address] 15461 Potassium [Moles/Vol] 3.8 mmol/L Normal 3.5-5.0 [facility] Comment on above: Performed By: #### 1 988-5, 84633-0, NAIN, 24850-0, CBCA #### [facility] ([id number]) [address] [place] [address] 83672 Protein [Mass/Vol] 7.4 g/dL Normal 6.0-8.0 [facility] Comment on above: Performed By: #### 1 988-5, 60198-7, NAIN, 41172-2, CBCA #### [facility] ([id number]) [address] [place] [address] 37389 Sodium [Moles/Vol] 137 mmol/L Normal 134-146 [facility] Comment on above: Performed By: #### 1 988-5, 33414-0, CMP, 57732-8, CBCA #### [facility] ([id number]) [address] [place] [address] 13056 Urea nitrogen [Mass/Vol] 13 mg/dL Normal 5-23 [facility] Comment on above: Performed By: #### 1 988-5, 50618-9, [facility], 34077-9, CBCA #### [facility] ([id number]) [address] [place] [address] 00731 CRP [Mass/Vol]on 09-06-2023 C REACTIVE PROTEIN 2.6 mg/dL High 0.000-0.744 [facility] Comment on above: Performed By: #### 2 106-3 #### [facility] ([id number]) [address] [place] [address] 30015 Fibrin D-dimer DDU (PPP) [Ma ss/Vol]on 09-06-2023 D DIMER 248 ng/mL DDU Normal <255 [facility] Comment on above: Result Comment: Results <255 ng/mL DDU: The presence of a VTE can safely be excluded with a negative D-Dimer result and Wells score. A negative result doesn't exclude the possibility of DIC. The test be repeated along with other diagnostic tests if the patient's symptoms persist or worsen. [email or web address] Performed By: #### 1 988-5, 68203-3, [facility], 40561-1, CBCA #### [facility] ([id number]) [address] [place] [address] 28855 LIPASEon 09-06-2023 Lipase [Catalytic activity/Vol] 36 U/L Normal 17-40 [facility] Comment on above: Performed By: #### 2 106-3 #### [facility] ([id number]) [address] [place] [address] 75039 Troponin I.cardiac High sens itivity method [Mass/Vol]on 09-06-2023 1 HOUR TROP I, HIGH SENSITIVITY <2 Normal <16 [facility] Comment on above: Performed By: #### 2 106-3 #### [facility] ([id number]) [address] [place] [address] TROPONIN I, HIGH SENSITIVITY <2 Normal <16 [facility] Comment on above: Performed By: #### 2 106-3 #### [facility] ([id number]) [address] [place] [address] 55972 XR CHEST 2 VWSon 09-06-2023 XR CHEST 2 VWS XR CHEST 2 VWS History: Chest pain Exam/Technique: PA and lateral chest Comparison: 04/23/2023 Findings: There is no evidence of active pulmonary or pleural disease. Cardiac and mediastinal contours are within normal limits. IMPRESSION: No active pulmonary disease. Finalized by Guero Rosa MD on 09/06/2023 9:56 PM Normal [facility] US PELVIC WITH TRANSVAGINAL AND DUPLEXon 06-25-2023 [...] Vance MD on 06/25/2023 8:21 AM Normal [facility] CBC AND AUTO DIFFon 06-24-19 24 ABSOLUTE BASOPHIL 0.1 X10E9/L Normal 0.0-0.2 [facility] Comment on above: Performed By: #### C LEIGHTON [facility], 3040-3 #### [facility] ([id number]) [address] [place] [address] 10018 ABSOLUTE NEUTROPHIL 8.1 X10E9/L High 1.5-6.6 [facility] Comment on above: Performed By: #### C LEIGHTON [facility], 3040-3 #### [facility] ([id number]) [address] [place] [address] 60413 Basophils/100 WBC (Bld) 0.9 % Normal [facility] Comment on above: Performed By: #### C LEIGHTON [facility], 3040-3 #### [facility] ([id number]) [address] [place] [address] 55030 Eosinophils (Bld) [#/Vol] 0.7 10*3/uL High 0.0-0.4 [facility] Comment on above: Performed By: #### Patrizia MANZANARES CMP, 3039-3 #### [facility] ([id number]) [address] [place] [address] 94714 Eosinophils/100 WBC (Bld) 5.3 % Normal [facility] Comment on above: Performed By: #### Patrizia MANZANARES CMP, 3039-07 #### [facility] ([id number]) [address] [place] [address] 36342 Erythrocyte distribution width (RBC) [Ratio] 13.9 % Normal 11.5-15.0 [facility] Comment on above: Performed By: #### Patrizia MANZANARES CMP, 3039-07 #### [facility] ([id number]) [address] [place] [address] 74088 Hematocrit (Bld) [Volume fraction] 40.3 % Normal 35-47 [facility] Comment on above: Performed By: #### Patrizia MANZANARES [facility], 3039-07 #### [facility] ([id number]) [address] [place] [address] 08708 Hemoglobin (Bld) [Mass/Vol] 13.7 g/dL Normal 11.7-15.5 [facility] Comment on above: Performed By: #### Patrizia MANZANARES CMP, 3039-07 #### [facility] ([id number]) [address] [place] [address] 62848 Lymphocytes (Bld) [#/Vol] 3.8 10*3/uL High 1.0-3.5 [facility] Comment on above: Performed By: #### Patrizia MANZANARES CMP, 3 #### [facility] ([id number]) [address] [place] [address] 55089 Lymphocytes/100 WBC (Bld) 28.5 % Normal [facility] Comment on above: Performed By: #### Patrizia MANZANARES CMP, 3039-07 #### [facility] ([id number]) [address] [place] [address] 22541 MCH (RBC) [Entitic mass] 29.4 pg Normal 27-34 [facility] Comment on above: Performed By: #### Patrizia MANZANARES CMP, 3039-3 #### [facility] ([id number]) [address] [place] [address] 89338 MCHC (RBC) [Mass/Vol] 34.0 g/dL Normal 32-36 [facility] Comment on above: Performed By: #### Patrizia MANZANARES CMP, 3039-07 #### [facility] ([id number]) [address] [place] [address] 89867 MCV (RBC) [Entitic vol] 86 fL Normal 80-100 [facility] Comment on above: Performed By: #### Patrizia MANZANARES CMP, 3039-07 #### [facility] ([id number]) [address] [place] [address] 73632 Monocytes (Bld) [#/Vol] 0.7 10*3/uL Normal 0-0.9 [facility] Comment on above: Performed By: #### Patrizia MANZANARES CMP, 3039-07 #### [facility] ([id number]) [address] [place] [address] 13580 Monocytes/100 WBC (Bld) 5.1 % Normal [facility] Comment on above: Performed By: #### Patrizia MANZANARES CMP, 3039-07 #### [facility] ([id number]) [address] [place] [address] 01664 Neutrophils/100 WBC (Bld) 60.2 % Normal [facility] Comment on above: Performed By: #### Patrizia MANZANARES CMP, 3 #### [facility] ([id number]) [address] [place] [address] 50618 Platelet mean volume (Bld) [Entitic vol] 8.2 fL Normal 7-12 [facility] Comment on above: Performed By: #### Patrizia MANZANARES, CMP, 3040-3 #### [facility] ([id number]) [address] [place] [address] 02740 Platelets (Bld) [#/Vol] 348 10*3/uL Normal 150-450 [facility] Comment on above: Performed By: #### Patrizia MANZANARES, CMP, 3039-3 #### [facility] ([id number]) [address] [place] [address] 55893 RBC COUNT 4.67 X10E12/L Normal 3.80-5.20 [facility] Comment on above: Performed By: #### Patrizia MANZANARES, CMP, 3039-3 #### [facility] ([id number]) [address] [place] [address] 67893 WBC (Bld) [#/Vol] 13.4 10*3/uL High 4.0-11.0 [facility] Comment on above: Performed By: #### Patrizia BCA, CMP, 3039-3 #### [facility] ([id number]) [address] [place] [address] 38709 COMPREHENSIVE METABOLIC PANE Buck 06-24-2023 Albumin [Mass/Vol] 4.2 g/dL Normal 3.2-5.3 [facility] Comment on above: Performed By: #### Patrizia MANZANARES, CMP, 0-3 #### [facility] ([id number]) [address] [place] [address] 79693 ALP [Catalytic activity/Vol] 82 U/L Normal 39-130 [facility] Comment on above: Performed By: #### Patrizia MANZANARES, CMP, 0-3 #### [facility] ([id number]) [address] [place] [address] 28855 ALT [Catalytic activity/Vol] 15 U/L Normal 0-31 [facility] Comment on above: Performed By: #### C NAIN MANZANARES, 0-3 #### [facility] ([id number]) [address] [place] [address] 44476 Anion gap [Moles/Vol] 8 mmol/L Normal 5-15 [facility] Comment on above: Performed By: #### C LEIGHTON CMP, 3 #### [facility] ([id number]) [address] [place] [address] 39040 AST [Catalytic activity/Vol] 17 U/L Normal 0-41 [facility] Comment on above: Performed By: #### C NAIN MANZANARES, 3 #### [facility] ([id number]) [address] [place] [address] 38189 Bilirubin [Mass/Vol] 0.3 mg/dL Normal 0.3-1.2 [facility] Comment on above: Performed By: #### Patrizia MANZANARES CMP, 3 #### [facility] ([id number]) [address] [place] [address] 35322 Calcium [Mass/Vol] 8.8 mg/dL Normal 8.5-10.5 [facility] Comment on above: Performed By: #### Patrizia MANZANARES CMP, 3039-3 #### [facility] ([id number]) [address] [place] [address] 75862 Chloride [Moles/Vol] 104 mmol/L Normal 98-109 [facility] Comment on above: Performed By: #### C LEIGHTON CMP, 3039-3 #### [facility] ([id number]) [address] [place] [address] 05427 CO2 [Moles/Vol] 27 mmol/L Normal 22-32 [facility] Comment on above: Performed By: #### C NAIN MANZANARES, 0-3 #### [facility] ([id number]) [address] [place] [address] 59328 Creatinine [Mass/Vol] 0.80 mg/dL Normal 0.40-1.00 [facility] Comment on above: Result Comment: METH OD TRACEABLE TO IDMS STANDARD Performed By: #### C NAIN MANZANARES, 3 #### [facility] ([id number]) [address] [place] [address] 75563 eGFR (CKD-EPI) NON-RACE DEPENDENT >90 Normal >59 [facility] Comment on above: Result Comment: Reported eGFR is based on the CKD-EPI 2020 equation that does not use a race coefficient. Performed By: #### C NAIN MANZANARES, 3 #### [facility] ([id number]) [address] [place] [address] 28349 Glucose [Mass/Vol] 91 mg/dL Normal 65-99 [facility] Comment on above: Performed By: #### C LEIGHTON [facility], 3 #### [facility] ([id number]) [address] [place] [address] 36196 Potassium [Moles/Vol] 3.7 mmol/L Normal 3.5-5.0 [facility] Comment on above: Performed By: #### C LEIGHTON [facility], 3 #### [facility] ([id number]) [address] [place] [address] 03013 Protein [Mass/Vol] 7.6 g/dL Normal 6.0-8.0 [facility] Comment on above: Performed By: #### C NAIN MANZANARES, 3 #### [facility] ([id number]) [address] [place] [address] 58342 Sodium [Moles/Vol] 139 mmol/L Normal 134-146 [facility] Comment on above: Performed By: #### C LEIGHTON [facility], 3040-3 #### [facility] ([id number]) [address] [place] [address] 68197 Urea nitrogen [Mass/Vol] 11 mg/dL Normal 5-23 [facility] Comment on above: Performed By: #### C NAIN MANZANARES, 3040-3 #### [facility] ([id number]) [address] [place] [address] [place] [address] HCG ( test) Ql (U)o n 06-24-2023 Beta HCG ( test) Ql (U) Negative Normal NEG [facility] Comment on above: Performed By: #### 2 106-3 #### [facility] ([id number]) [address] [place] [address] 11742 LIPASEon 06-24-2023 Lipase [Catalytic activity/Vol] 35 U/L Normal 17-40 [facility] Comment on above: Performed By: #### C LEIGHTON [facility], 3040-3 #### [facility] ([id number]) [address] [place] [address] [place] [address] URN MACROSCOPIC NURon 2023 BILIRUBIN ISMAEL Negative Normal [facility] Comment on above: Performed By: #### N UM #### [facility] ([id number]) [address] [place] [address] [place] [address] BLOOD/HGB ISMAEL Negative Normal NEG [facility] Comment on above: Performed By: #### N UM #### [facility] ([id number]) [address] [place] [address] [place] [address] GLUCOSE ISMAEL Negative Normal NEG [facility] Comment on above: Performed By: #### N UM #### [facility] ([id number]) [address] [place] [address] [place] [address] KETONES ISMAEL Negative Normal NEG [facility] Comment on above: Performed By: #### N UM #### [facility] ([id number]) [address] [place] [address] 03142 LEUKOCYTE ESTERASE ISMAEL Negative Normal NEG [facility] Comment on above: Performed By: #### N UM #### [facility] ([id number]) [address] [place] [address] 56516 NITRITE ISMAEL Negative Normal NEG [facility] Comment on above: Performed By: #### N UM #### [facility] ([id number]) [address] [place] [address] 48787 PH ISMAEL 6.0 Normal 5.0-8.5 [facility] Comment on above: Performed By: #### N UM #### [facility] ([id number]) [address] [place] [address] 22644 PROTEIN ISMAEL Negative Normal NEG [facility] Comment on above: Performed By: #### N UM #### [facility] ([id number]) [address] [place] [address] 15880 SPECIFIC GRAVITY ISMAEL 1.015 Normal 1.003-1.035 [facility] Comment on above: Performed By: #### N UM #### [facility] ([id number]) [address] [place] [address] 44012 UROBILINOGEN ISMAEL 0.2 eu/dL Normal <1.1 [facility] Comment on above: Performed By: #### N UM #### [facility] ([id number]) [address] [place] [address] 33314 US PELVIC WITH TRANSVAGINAL AND DUPLEXon 06-24-2023 [...] Froilan Henson on 06/24/2023 10:20 PM Normal [facility] Cholesterol [Mass/volume] in Serum or PlasmaOrdered By: Hardy Jones on 03-10-2023 Cholesterol [Mass/Vol] 143 mg/dL Normal 140-200 [facility] Comment on above: Chol less than 200 m g/dl low riskChol 201-239 mg/dl borderline riskChol 240 mg/dl and greater high risk Order Comment: FASTI NG Y Result Comment: Chol less than 200 mg/dl low risk Chol 201-239 mg/dl borderline risk Chol 240 mg/dl and greater high risk Performed By: #### T SH3 wRFLX, LIPID, [id number] #### [facility] [address] Cholesterol in LDL Calc [Mas s/Vol]Ordered By: Hardy Jones on 03-10-2023 Cholesterol in LDL [Mass/Vol] 77 mg/dL 0-100 [facility] Comment on above: LDL ATP III CLASSIFI CATIONLDL less than 100 mg/dL OptimalLDL 100-129 mg/dL Near or above optimalLDL 130-159 mg/dL Borderline highLDL 160-189 mg/dL HighLDL greater than 189 mg/dL Very high Cholesterol in VLDL Calc [Ma ss/Vol]Ordered By: Hardy Jones on 03-10-2023 Cholesterol in VLDL [Mass/Vol] 18 mg/dL [facility] ECG 12 lead ECGon 03-10-2023 ECG 12 lead ECG [facility] [place] [address] [place] [address] Electrocardiograph Report Signed Patient: Sandee Null MR#: [id number] : 1990 Acct:[id number] Age/Sex: 33 / F ADM Date: 03/10/23 Loc: Room: [address] [place] [address] Type: ADM IN Attending Dr: uJs Santos MD Ordering Provider: Hardy Jones MD [...] Inga Miller DO 03/10 1722 Normal [facility] Lipid Panelon 03-10-2023 LDL Cholesterol,Calculate d 77 mg/dL Normal 0-100 [facility] Comment on above: Order Comment: VEL IQBAL Y Result Comment: LDL ATP III CLASSIFICATION LDL less than 100 mg/dL Optimal LDL 100-129 mg/dL Near or above optimal LDL 130-159 mg/dL Borderline high LDL 160-189 mg/dL High LDL greater than 189 mg/dL Very high Performed By: #### T SH3 wRFLX, LIPID, [id number] #### [facility] [address] Triglyceride w/Reflex 90 mg/dL Normal 0-149 [facility] Comment on above: Order Comment: VEL Hutchison Result Comment: TRIG ATP III CLASSIFICATION TRIG less than 150 mg/dL Normal TRIG 150-199 mg/dL Borderline high TRIG 200-500 mg/dL High TRIG greater than 500 mg/dL Very high Standard traceable to the Center for Disease Conrtrol and Prevention (CDC) test method. Performed By: #### T SH3 wRFLX, LIPID, [id number] #### [address] VLDL CHOLESTEROL 18 mg/dL Normal [facility] Comment on above: Order Comment: VEL Hutchison Performed By: #### T SH3 wRFLX, LIPID, [id number] #### [address] Serum or plasma high density lipoprotein (HDL) cholesterol measurementOrdered By: Hardy Jones on 03-10-2023 Cholesterol in HDL [Mass/Vol] 48 mg/dL Normal 23-92 [facility] Comment on above: HDL CHOL ATP-III CLA SSIFICATION Cardiovascular RiskHDL > or equal to 60 mg/dL LOWHDL < 40 mg/dL HIGH Order Comment: VEL Hutchison Result Comment: HDL CHOL ATP-III CLASSIFICATION Cardiovascular Risk HDL > or equal to 60 mg/dL LOW HDL < 40 mg/dL HIGH Performed By: #### T SH3 wRFLX, LIPID, [id number] #### [facility] [address] [place] [address] Serum or plasma total choles terol/high density lipoprotein (HDL) cholesterol mass ratOrdered By: Hardy Jones on 03-10-2023 Cholesterol.total/Cho lesterol in HDL [Mass ratio] 3.0 {ratio} Normal <5.0 [facility] Comment on above: Order Comment: VEL Hutchison Performed By: #### T SH3 wRFLX, LIPID, [id number] #### [facility] [address] [place] [address] Thyroid Stim Hormone w/Rflxo n 03-10-2023 Thyroid Stim Hormone w/Rflx 1.79 u[iU]/mL Normal 0.45-5.33 [facility] Comment on above: Order Comment: AURYDen Hutchison Performed By: #### T SH3 wRFLX, LIPID, [id number] #### [facility] [address] Thyrotropin [Units/volume] i n Serum or PlasmaOrdered By: Hardy Jones on 03-10-2023 TSH Qn 1.79 m[IU]/L 0.45-5.33 [facility] Triglyceride [Mass/volume] i n Serum or PlasmaOrdered By: Hardy Jones on 03-10-2023 Triglyceride [Mass/Vol] 90 mg/dL 0-149 [facility] Comment on above: TRIG ATP III CLASSIF ICATIONTRIG less than 150 mg/dL NormalTRIG 150-199 mg/dL Borderline highTRIG 200-500 mg/dL High TRIG greater than 500 mg/dL Very highStandard traceable to the Center for Disease Conrtrol and Prevention (CDC) test method. Vitamin D 25 Hydroxy Totalon 03-10-2023 Vitamin D 25 Hydroxy Total 27.0 ng/mL Low 30-100 [facility] Comment on above: Order Comment: VEL Hutchison Result Comment: LUCHO MIN D STATUS 25(OH)VITAMIN D RANGE (ng/mL) Deficient <20 Insufficient 20 to <30 Sufficient 30 to 100 Reference: Nish MF,Fred NC, Chiquita MCQUEEN, et al. Evaluation,treatment, and prevention of vitamin D deficiency; an Endocrine Society clinical practice guideline. JCEM. 2010; 96(7):1911-30. PERFORMED BY: [facility] [address] [place] [address] PATHOLOGIST NUISANCE WILDL[employer] SPECIALIST NOHEMI HERNANDEZ M.D. Performed By: #### T SH3 wRFLX, LIPID, [id number] #### [facility] [address] Vitamin D+Metabolites [Mass/ volume] in Serum or PlasmaOrdered By: Hardy Jones on 03-10-2023 Vitamin D+Metabolites [Mass/Vol] 27.0 ng/mL 30-100 [facility] Comment on above: VITAMIN D STATUS 25( [place])VITAMIN D RANGE (ng/mL) Deficient <20 Insufficient 20 to <30Sufficient 30 to 100Reference: Nish MF,Fred TRUJILLO, Chiquita MCQUEEN, et al. Evaluation,treatment, and prevention of vitamin D deficiency; an Endocrine Society clinical practice guideline. JCEM. 2010; 96(7):1911-30. CBC AUTO DIFFon 09-21-2021 BASO # 0.1 103/ul Normal 0.0-0.1 [facility] Comment on above: Performed By: #### C BC #### [facility] [address] [place] [address] Dr. Jigna Acuna Basophils/100 WBC (Bld) 0.5 % Normal 0.2-2.0 [facility] Comment on above: Performed By: #### C BC #### [facility] [address] [place] [address] Dr. Jigna Acuna EO # 0.6 103/ul Normal 0.0-0.7 [facility] Comment on above: Performed By: #### C BC #### [facility] [address] [place] [address] Dr. Jigna Acuna Eosinophils/100 WBC (Bld) 6.2 % Normal 0.9-7.0 [facility] Comment on above: Performed By: #### C BC #### [facility] [address] [place] [address] Dr. Jigna Acuna Erythrocyte distribution width (RBC) [Ratio] 14.5 % Normal 11.0-15.0 [facility] Comment on above: Performed By: #### C BC #### [facility] [address] [place] [address] Dr. Jigna Acuna Hematocrit (Bld) [Volume fraction] 36.1 % Normal 36.0-48.0 [facility] Comment on above: Performed By: #### C BC #### [facility] [address] [place] [address] Dr. Jigna Acuna Hemoglobin (Bld) [Mass/Vol] 11.5 g/dL Critically low 12.0-16.0 [facility] Comment on above: Performed By: #### C BC #### [facility] [address] [place] [address] Dr. Jigna Acuna IG # 0.03 10e3/ul Normal 0.00-0.03 [facility] Comment on above: Performed By: #### C BC #### [facility] [address] [place] [address] Dr. Jigna Acuna IG % 0.3 % Normal 0.0-0.5 [facility] Comment on above: Performed By: #### C BC #### [facility] [address] [place] [address] Dr. Jigna Acuna LYMPH # 2.9 103/ul Normal 1.2-3.8 [facility] Comment on above: Performed By: #### C BC #### [facility] [address] [place] [address] Dr. Jigna Acuna Lymphocytes/100 WBC (Bld) 28.4 % Normal 20.5-60.0 [facility] Comment on above: Performed By: #### C BC #### [facility] [address] [place] [address] Dr. Jigna Acuna MANUAL DIFF REQ NO Normal [facility] Comment on above: Performed By: #### C BC #### [facility] [address] [place] [address] Dr. Jigna Acuna MCH (RBC) [Entitic mass] 27.1 pg Normal 26.7-34.0 [facility] Comment on above: Performed By: #### C BC #### [facility] [address] [place] [address] Dr. Jigna Acuna MCHC (RBC) [Mass/Vol] 31.9 g/dL Normal 29.9-35.2 [facility] Comment on above: Performed By: #### C BC #### [facility] [address] [place] [address] Dr. Jigna Acuna MCV (RBC) [Entitic vol] 84.9 fL Normal 81.0-99.0 [facility] Comment on above: Performed By: #### C BC #### [facility] [address] [address] [address] Jigna Acuna MONO # 0.5 103/ul Normal 0.3-0.8 [facility] Comment on above: Performed By: #### C BC #### [facility] [address] [address] [address] Jigna Acuna Monocytes/100 WBC (Bld) 4.9 % Normal 1.7-12.0 [facility] Comment on above: Performed By: #### C BC #### [facility] [address] [address] [address] Jigna Acuna NEUT # 6.0 103/ul Normal 1.4-6.5 [facility] Comment on above: Performed By: #### C BC #### [facility] [address] [place] [address] Dr. Jigna Acuna Neutrophils/100 WBC (Bld) 59.7 % Normal 43.0-75.0 [facility] Comment on above: Performed By: #### C BC #### [facility] [address] [place] [address] Dr. Jigna Acuna Platelet mean volume (Bld) [Entitic vol] 9.8 fL Normal 9.5-13.5 [facility] Comment on above: Performed By: #### C BC #### [facility] [address] [place] [address] Dr. Jigna Acuna PLT 317 103/ul Normal 150-450 [facility] Comment on above: Performed By: #### C BC #### [facility] [address] [place] [address] Dr. Jigna Acuna RBC 4.25 106/ul Normal 4.20-5.40 [facility] Comment on above: Performed By: #### C BC #### [facility] [address] [place] [address] Dr. Jigna Acuna WBC 10.0 103/ul Normal 4.0-11.0 [facility] Comment on above: Performed By: #### C BC #### [facility] [address] [address] [address] Jigna Acuna PROF CHEM 8 (BAS METB)on Anion gap [Moles/Vol] 12.2 mmol/L Normal [facility] Comment on above: Performed By: #### B MP #### [facility] [address] [place] [address] Dr. Jigna Acuna Calcium [Mass/Vol] 8.2 mg/dL Critically low 8.5-10.1 [facility] Comment on above: Performed By: #### B MP #### [facility] [address] [place] [address] Dr. Jigna Acuna Chloride [Moles/Vol] 99 mmol/L Normal 98-107 [facility] Comment on above: Performed By: #### B MP #### [facility] [address] [place] [address] Dr. Jigna Acuna CO2 [Moles/Vol] 28.7 mmol/L Normal 21.0-32.0 [facility] Comment on above: Performed By: #### B MP #### [facility] [address] [place] [address] Dr. Jigna Acuna Creatinine [Mass/Vol] 0.65 mg/dL Normal 0.55-1.02 [facility] Comment on above: Performed By: #### B MP #### [facility] [address] [place] [address] Dr. Jigna Acuna EGFR-AF NIUEAN >60 Normal >=60 [facility] Comment on above: Performed By: #### B MP #### [facility] [address] [place] [address] Dr. Jigna Acuna EGFR-NON AF NIUEAN >60 Normal >=60 [facility] Comment on above: Performed By: #### B MP #### [facility] [address] [place] [address] Dr. Jigna Acuna Glucose [Mass/Vol] 91 mg/dL Normal 74-106 [facility] Comment on above: Performed By: #### B MP #### [facility] [address] [place] [address] Dr. Jigna Acuna Potassium [Moles/Vol] 3.9 mmol/L Normal 3.5-5.1 [facility] Comment on above: Performed By: #### B MP #### [facility] [address] [address] [address] Jigna Acuna Sodium [Moles/Vol] 136 mmol/L Normal 136-145 [facility] Comment on above: Performed By: #### B MP #### [facility] [address] [address] [address] Jigna Acuna Urea nitrogen [Mass/Vol] 14.0 mg/dL Normal 7.0-18.0 [facility] Comment on above: Performed By: #### B MP #### [facility] [address] [address] [address] Jigna Acuna Urea nitrogen/Creatinine [Mass ratio] 21.5 mg/mg Normal [facility] Comment on above: Performed By: #### B MP #### [facility] [address] [address] [address] Jigna Acuna XR CHEST 2 Von [...] by: ROBERT VIERA Date: 2021-09-21 01:28 Normal [facility] Basic metabolic 2000 panelon 09-19-2021 Anion gap [Moles/Vol] 18 mmol/L Normal 9-18 [facility] Comment on above: Order Comment: Speci men Type: BLOOD SPECIMEN Ordering Facility: [facility] Address: [address] [place] [address] Performed By: #### 2 4321-2 #### [facility] CLIA [id number] [address] [place] [address] [place] Calcium [Mass/Vol] 8.5 mg/dL Normal 8.5-10.2 [facility] Comment on above: Order Comment: Speci men Type: BLOOD SPECIMEN Ordering Facility: [facility] Address: [address] [place] [address] Performed By: #### 2 4321-2 #### [facility] CLIA [id number] [address] [place] [address] [place] Chloride [Moles/Vol] 104 mmol/L Normal 97-105 [facility] Comment on above: Order Comment: Speci men Type: BLOOD SPECIMEN Ordering Facility: [facility] Address: [address] [place] [address] Performed By: #### 2 4321-2 #### [facility] CLIA [id number] [address] [place] [address] [place] CO2 [Moles/Vol] 18 mmol/L Low 22-30 [facility] Comment on above: Order Comment: Speci men Type: BLOOD SPECIMEN Ordering Facility: [facility] Address: [address] [place] [address] Performed By: #### 2 4321-2 #### [facility] CLIA [id number] [address] [place] [address] [place] Creatinine [Mass/Vol] 0.81 mg/dL Normal 0.58-0.96 [facility] Comment on above: Order Comment: Speci men Type: BLOOD SPECIMEN Ordering Facility: [facility] Address: [address] [place] [address] Performed By: #### 2 4321-2 #### [facility] CLIA [id number] [address] [place] [address] [place] ESTIMATED GLOMERULAR FILTRATION RATE 101 mL/min/1.73m??? Normal >=60 [facility] Comment on above: Order Comment: Norbert eddy Type: BLOOD SPECIMEN Ordering Facility: [facility] Address: [address] [place], [place] [phone] Result Comment: Frances mated Glomerular Filtration Rate [...] GFR. Performed By: #### 2 4321-2 #### [facility] CLIA [id number] [place] [address] [place] Glucose [Mass/Vol] 107 mg/dL High 74-99 [facility] Comment on above: Order Comment: Norbert eddy Type: BLOOD SPECIMEN Ordering Facility: [facility] Address: [address] [place] [address] Result Comment: The [place] Diabetes Association (ADA) provides guidance for cutoff [...] Standards of Medical Care in Diabetes 2016, [place] [employer]. Diabetes Care. 2016.39(Suppl 1). Performed By: #### 2 4321-2 #### [facility] CLIA [id number] [address] [place] [address] [place] Potassium [Moles/Vol] 3.9 mmol/L Normal 3.7-5.1 [facility] Comment on above: Order Comment: Norbert eddy Type: BLOOD SPECIMEN Ordering Facility: [facility] Address: [address] Performed By: #### 2 4321-2 #### [facility] CLIA [id number] [address] [place] [address] [place] Sodium [Moles/Vol] 140 mmol/L Normal 136-144 [facility] Comment on above: Order Comment: Speci men Type: BLOOD SPECIMEN Ordering Facility: [facility] Address: [address] [place] [address] Performed By: #### 2 4321-2 #### [facility] CLIA [id number] [address] [place] [address] [place] Urea nitrogen [Mass/Vol] 15 mg/dL Normal 7-21 [facility] Comment on above: Order Comment: Speci men Type: BLOOD SPECIMEN Ordering Facility: [facility] Address: [address] [place] [address] Performed By: #### 2 4321-2 #### [facility] CLIA [id number] [address] [place] [address] [place] CBC panel Auto (Bld)on 09-19 Erythrocyte distribution width (RBC) [Ratio] 14.2 % Normal 11.5-15.0 [facility] Comment on above: Order Comment: Speci men Type: BLOOD SPECIMEN Ordering Facility: [facility] Address: [address] [place] [address] Performed By: #### 5 8410-2 #### [facility] CLIA [id number] [address] [place] [address] [place] Hematocrit (Bld) [Volume fraction] 36.8 % Normal 36.0-46.0 [facility] Comment on above: Order Comment: Speci men Type: BLOOD SPECIMEN Ordering Facility: [facility] Address: [address] [place] [address] Performed By: #### 5 8410-2 #### [facility] CLIA [id number] [address] [place] [address] [place] Hemoglobin (Bld) [Mass/Vol] 12.1 g/dL Normal 11.5-15.5 [facility] Comment on above: Order Comment: Speci men Type: BLOOD SPECIMEN Ordering Facility: [facility] Address: [address] [place] [address] Performed By: #### 5 8410-2 #### [facility] CLIA [id number] [address] [place] [address] MCH (RBC) [Entitic mass] 27.9 pg Normal 26.0-34.0 [facility] Comment on above: Order Comment: Speci men Type: BLOOD SPECIMEN Ordering Facility: [facility] Address: [address] [place] [address] Performed By: #### 5 8410-2 #### [facility] CLIA [id number] [address] [place] [address] MCHC (RBC) [Mass/Vol] 32.9 g/dL Normal 30.5-36.0 [facility] Comment on above: Order Comment: Speci men Type: BLOOD SPECIMEN Ordering Facility: [facility] Address: [address] [place] [address] Performed By: #### 5 8410-2 #### [facility] CLIA [id number] [address] [place] [address] STATES [facility] MCV (RBC) [Entitic vol] 84.8 fL Normal 80.0-100.0 [facility] Comment on above: Order Comment: Speci men Type: BLOOD SPECIMEN Ordering Facility: [facility] Address: [address] [place] [address] Performed By: #### 5 8410-2 #### [facility] CLIA [id number] [address] [place] [address] Nucleated RBC (Bld) [#/Vol] 10*3/uL Normal <0.01 [facility] Comment on above: Order Comment: Speci men Type: BLOOD SPECIMEN Ordering Facility: [facility] Address: [address] [place] [address] Performed By: #### 5 8410-2 #### [facility] CLIA [id number] [address] [place] [address] [place] Platelet mean volume (Bld) [Entitic vol] 10.1 fL Normal 9.0-12.7 [facility] Comment on above: Order Comment: Speci men Type: BLOOD SPECIMEN Ordering Facility: [facility] Address: [address] [place] [address] Performed By: #### 5 8410-2 #### [facility] CLIA [id number] [address] [place] [address] [place] Platelets (Bld) [#/Vol] 349 10*3/uL Normal 150-400 [facility] Comment on above: Order Comment: Speci men Type: BLOOD SPECIMEN Ordering Facility: [facility] Address: [address] [place] [address] Performed By: #### 5 8410-2 #### [facility] CLIA [id number] [address] [place] [address] [place] RBC (Bld) [#/Vol] 4.34 10*6/uL Normal 3.90-5.20 [facility] Comment on above: Order Comment: Speci men Type: BLOOD SPECIMEN Ordering Facility: [facility] Address: [address] [place] [address] Performed By: #### 5 8410-2 #### [facility] CLIA [id number] [address] [place] [address] [place] WBC (Bld) [#/Vol] 14.60 10*3/uL High 3.70-11.00 [facility] Comment on above: Order Comment: Speci men Type: BLOOD SPECIMEN Ordering Facility: [facility] Address: [address] [place] [address] Performed By: #### 5 8410-2 #### [facility] CLIA [id number] [address] [place] [address] [place] CNDSon 09-19-2021 CNDS HNO ID: [id number] Author: Rob Scott PA-C Service: Cardiac Surgery Author Type: Physician Compliance Aide Type: Discharge Summary Filed: 09/19/2021 9:31 AM [...] of Thoracic Surgery Discharge Summary (Template ID [id number]) PATIENT NAME: Sandee Null ADMISSION DATE: 09/18/2021 [...] major fissure on a chest CT in [facility] in 09/2015. She was unaware that [...] 6-9, and Chest tube placement x 1 (#24-Burkinan) Hospital Course: * How was the Reason for Hospitalization Addressed: Sandee Null is a very pleasant 31-year old female who is a former 10+ pack year smoker and who has severe asthma. She was found to have a 4 mm left lower lobe lung nodule near the left major fissure on a chest CT in [facility] in 09/2015. She was unaware that [...] 6-9, and Chest tube placement x 1 (#24-Burkinan) on 09/18/2021. She was subsequently transferred to the PACU and th (more content not included)... [facility] CONSULT PROGon 09-19-2021 CONSULT PROG HNO ID: [id number] Author: Ronda Mendieta APRN.GRAPHIC ART SALES REPRESENTATIVE Service: Pain Management Author Type: Nurse Practitioner [...] 19, 2021 TIME: 09:40 AM PAGER/CONTACT #: MALIK [phone] [facility] NURSING PROGon 09-19-2021 NURSING PROG HNO ID: [id number] Author: Mary Clrak RN Service: Nursing Author Type: Registered Nurse Type: Nursing Progress Note Filed: 09/19/2021 1:45 PM Note Text: Nursing Progress Note Patient Name: Sandee Null Patient [facility] [place] [id number] Daily Note: see NPR for full assessment 0830 - PA Altemara up to floor to see patient, CT pulled 1330 - Went through discharge instructions, ALL aspects of care discussed, ALL questions and concerns addressed This note was completed by: Mary Clark [facility] ALLIED HEALTHon 09-18-2021 ALLIED HEALTH HNO ID: [id number] Author: RT Abbe(Yunior) Service: Radiology Author Type: Technologist Type: Allied [...] RT Abbe(R) September 18, 2021 7:10 PM [facility] ANES POSTPROC EVALon 022 ANES POSTPROC EVAL HNO ID: [id number] Author: Eliezer Lr MD Service: Anesthesiology Author [...] September 18, 2021 TIME: 2:36 PM CSN: [id number] [facility] ANES PRE-OPon 09-18-2021 ANES PRE-OP HNO ID: [id number] Author: Pj Rendon DO Service: Anesthesiology Author Type: Resident Type: Anesthesia Preprocedure Evaluation Filed: 09/18/2021 7:16 AM Note Text: Attestation signed by Eliezer Lr MD at 09/18/2021 9:13 AM [facility] STAFF PHYSICIAN NOTE OF PERSONAL INVOLVEMENT IN [...] and consent discussed: yes. Patient / Responsible [employer] Party agrees to proceed: yes Patient / Surrogate agrees to blood products: Yes Significant changes in the patient condition since the History and Physical, not otherwise documented in primary service progress note: no. Potential Anesthesia issues that may suggest increased risk of complications or contraindication to planned procedure: none. Vitals Value Taken Time BP 126/82 09/18/21 0642 Pulse 115 09/18/21 0642 Resp 18 09/18/21641 Temp 36.7 ?C (98.1 ?F) 09/18/21641 SpO2 95 % 09/18/21641 Facility-Administered Medications as of 09/18/2021 Medication Dose [...] September 18, 2021 TIME: 7:06 AM CSN: [id number] [facility] BRIEF OP NOTon 09-18-2021 BRIEF OP NOT HNO ID: [id number] Author: Donald Huang MD Service: Thoracic Surgery Author Type: Physician Type: Brief Op Note Filed: 09/18/2021 10:16 AM Note Text: BRIEF OPERATIVE / PROCEDURE NOTE LOG ID: [id number] SURGERY/PROCEDURE DATE: 09/18/2021 INCISION/PROCEDURE START TIME: 8:49 AM INCISION CLOSE/PROCEDURE END TIME: SURGEON(S)/PROCEDURALIST(S) AND ACCOUNTS PAYABLE MANAGER(S): Surgeon(s) and Role: * Donald Huang MD - Primary Physician Compliance Aide: Erick Trujillo PA-C SURGERY/PROCEDURE(S): 1. Left robotic-assisted lower lobe wedge resection x 1. 2. Left cryo-analgesia procedure, interspaces 6-9. (total time 20 minutes) 3. Chest tube placement x 1 (#24-Burkinan). ANESTHESIA: General FINDINGS: 1. Firm, irregular mass [...] DATE: September 18, 2021 TIME: 10:14 AM [facility] Basic metabolic 2000 panelon 09-18-2021 Anion gap [Moles/Vol] 12 mmol/L Normal 9-18 [facility] Comment on above: Order Comment: Speci men Type: BLOOD SPECIMENOrdering Facility: [facility] Address: [address] [place] [address] Performed By: #### 2 4321-2 ####[facility] [id number] [place] [address] [place] Calcium [Mass/Vol] 8.2 mg/dL Low 8.5-10.2 [facility] Comment on above: Order Comment: Speci men Type: BLOOD SPECIMENOrdering Facility: [facility] Address: [address] [place] [address] Performed By: #### 2 4321-2 ####[facility] [id number] [place] [address] [place] Chloride [Moles/Vol] 104 mmol/L Normal 97-105 [facility] Comment on above: Order Comment: Speci men Type: BLOOD SPECIMENOrdering Facility: [facility] Address: [address] [place] [address] Performed By: #### 2 4321-2 ####[facility] [id number] [place] [address] [place] CO2 [Moles/Vol] 21 mmol/L Low 22-30 [facility] Comment on above: Order Comment: Speci men Type: BLOOD SPECIMENOrdering Facility: [facility] Address: [address] [place] [address] Performed By: #### 2 4321-2 ####[facility] [id number] [place] [address] [place] Creatinine [Mass/Vol] 0.72 mg/dL Normal 0.58-0.96 [facility] Comment on above: Order Comment: Speci men Type: BLOOD SPECIMENOrdering Facility: [facility] Address: [address] [place] [address] Performed By: #### 2 4321-2 ####[facility] [id number] [address] [place] ESTIMATED GLOMERULAR FILTRATION RATE 116 mL/min/1.73m??? Normal >=60 [facility] Comment on above: Order Comment: Speci men Type: BLOOD SPECIMENOrdering Facility: [facility] Address: [address] [place] [address] Result Comment: Frances mated Glomerular Filtration Rate [...] actual GFR. Performed By: #### 2 4321-2 ####[facility] [id number] [place] [address] [place] Glucose [Mass/Vol] 130 mg/dL High 74-99 [facility] Comment on above: Order Comment: Norbert eddy Type: BLOOD SPECIMENOrdering Facility: [facility] Address: [address] Result Comment: The [place] Diabetes Association (ADA) provides guidance for cutoff [...] Standards of Medical Care in Diabetes 2016, [place] [employer]. Diabetes Care. 2016.39(Suppl 1). Performed By: #### 2 4321-2 ####[facility] [id number] [place] [id number] [place] Potassium [Moles/Vol] 4.2 mmol/L Normal 3.7-5.1 [facility] Comment on above: Order Comment: Norbert eddy Type: BLOOD SPECIMENOrdering Facility: [facility] Address: [address] [id number] Performed By: #### 2 4321-2 ####[facility]ORY[facility]IA [id number] [place] [address] [place] Sodium [Moles/Vol] 137 mmol/L Normal 136-144 [facility] Comment on above: Order Comment: Speci men Type: BLOOD SPECIMENOrdering Facility: [facility] Address: [address] [place] [address] Performed By: #### 2 4321-2 ####[facility]ORYCLIA [id number] [place] [address] [place] Urea nitrogen [Mass/Vol] 12 mg/dL Normal 7-21 [facility] Comment on above: Order Comment: Speci men Type: BLOOD SPECIMENOrdering Facility: [facility] Address: [address] [place] [address] Performed By: #### 2 4321-2 ####[facility] LABORATORYCLIA [id number] [address] [place] CBC panel Auto (Bld)on 09-18 Erythrocyte distribution width (RBC) [Ratio] 14.0 % Normal 11.5-15.0 [facility] Comment on above: Order Comment: Speci men Type: BLOOD SPECIMEN [facility] Address: [address] [place] [address] Performed By: #### 5 8410-2 #### [facility] CLIA [id number] [place] Hematocrit (Bld) [Volume fraction] 36.5 % Normal 36.0-46.0 [facility] Comment on above: Order Comment: Speci men Type: BLOOD SPECIMEN [facility] Address: [address] [place] [address] Performed By: #### 5 8410-2 #### [facility] CLIA [id number] [address] [place] [address] [place] Hemoglobin (Bld) [Mass/Vol] 12.0 g/dL Normal 11.5-15.5 [facility] Comment on above: Order Comment: Speci men Type: BLOOD SPECIMEN [facility] Address: [address] [place] [address] Performed By: #### 5 8410-2 #### [facility] CLIA [id number] [address] [place] [address] [place] MCH (RBC) [Entitic mass] 27.3 pg Normal 26.0-34.0 [facility] Comment on above: Order Comment: Speci men Type: BLOOD SPECIMEN [facility] Address: [address] [place] [address] Performed By: #### 5 8410-2 #### [facility] CLIA [id number] [address] [place] [address] [place] MCHC (RBC) [Mass/Vol] 32.9 g/dL Normal 30.5-36.0 [facility] Comment on above: Order Comment: Speci men Type: BLOOD SPECIMEN [facility] Address: [address] [place] [address] Performed By: #### 5 8410-2 #### [facility] CLIA [id number] [address] [place] [address] [place] MCV (RBC) [Entitic vol] 83.0 fL Normal 80.0-100.0 [facility] Comment on above: Order Comment: Speci men Type: BLOOD SPECIMEN [facility] Address: [address] [place] [address] Performed By: #### 5 8410-2 #### [facility] CLIA [id number] [address] [place] [address] [place] Nucleated RBC (Bld) [#/Vol] 10*3/uL Normal <0.01 [facility] Comment on above: Order Comment: Speci men Type: BLOOD SPECIMEN [facility] Address: [address] [place] [address] Performed By: #### 5 8410-2 #### [facility] CLIA [id number] [address] [place] [address] [place] Platelet mean volume (Bld) [Entitic vol] 10.6 fL Normal 9.0-12.7 [facility] Comment on above: Order Comment: Speci men Type: BLOOD SPECIMEN [facility] Address: [address] [place] [address] Performed By: #### 5 8410-2 #### [facility] CLIA [id number] [address] [place] [address] [place] Platelets (Bld) [#/Vol] 304 10*3/uL Normal 150-400 [facility] Comment on above: Order Comment: Speci men Type: BLOOD SPECIMEN [facility] Address: [address] [place] [address] Performed By: #### 5 8410-2 #### [facility] CLIA [id number] [address] [place] [address] [place] RBC (Bld) [#/Vol] 4.40 10*6/uL Normal 3.90-5.20 [facility] Comment on above: Order Comment: Speci men Type: BLOOD SPECIMEN [facility] Address: [address] [place] [address] Performed By: #### 5 8410-2 #### [facility] CLIA [id number] [address] [place] [address] [place] WBC (Bld) [#/Vol] 11.34 10*3/uL High 3.70-11.00 [facility] Comment on above: Order Comment: Speci men Type: BLOOD SPECIMEN [facility] Address: [address] [place] [address] Performed By: #### 5 8410-2 #### [facility] CLIA [id number] [address] [place] [address] OF [place] CONFIRM BLOOD TYPEon 022 ABO O Normal [facility] Comment on above: Order Comment: Speci men Type: BLOOD SPECIMENOrdering Facility: [facility] Address: [address] [place] [address] Performed By: #### C ONABO ####[facility] BANKCLIA [id number] [place] [address] [place] Rh Nom (Bld) Positive Normal [facility] Comment on above: Order Comment: Specden eddy Type: BLOOD SPECIMENOrdering Facility: [facility] Address: [address] [place] [address] Performed By: #### [facility] ####[facility] BANKCLIA [id number] [place] [address] [place] HISTORY PHYSICALon HISTORY PHYSICAL HNO ID: [id number] Author: Erick Trujillo PA-C Service: Cardiac Surgery Author Type: Physician Compliance Aide Type: HANDP Filed: 09/18/2021 7:31 AM Note [...] September 18, 2021 TIME: 7:31 AM Normal [facility] Magnesium SerPl-mCncon 09-18 Magnesium [Mass/Vol] 1.8 mg/dL Normal 1.7-2.3 [facility] Comment on above: Order Comment: Norbert eddy Type: BLOOD SPECIMEN [facility] Address: [address] [place] [address] Performed By: #### 1 9123-9 #### [facility] CLIA [id number] [address] [place] [id number] [place] NURSING PROGon 09-18-2021 NURSING PROG HNO ID: [id number] Author: Mary Clark RN Service: Nursing Author Type: Registered Nurse Type: Nursing Progress Note Filed: 09/18/2021 4:56 PM Note Text: Nursing Progress Note Patient Name: Sandee Null Patient Location: [place] [address] [address] Transfer Note: Patient transferred into room/unit PK232 in stable condition. Actions taken: No futher actions taken at this time. 1645 - patient up to bathroom, voided This note was completed by: Mary Clark [facility] NURSING PROG HNO ID: [id number] Author: Leah Caballero, RN Service: Nursing Author Type: Registered Nurse Type: Nursing Progress Note Filed: 09/18/2021 7:13 AM Note Text: Left single shot paravertebral neve blocks x2 Dr. Grover Patient verbalizes understanding. Tolerated procedure well report given to primary RN. [facility] NURSING PROG HNO ID: [id number] Author: Sandra Alcala RN Service: ? Author [...] (RECOMMENDATION): None Electronically Signed By: Sandra Alcala [facility] OPERATIVE NOon 09-18-2021 OPERATIVE NO HNO ID: [id number] Author: Donald Huang MD Service: Thoracic Surgery Author Type: Physician Type: Operative Report Filed: 09/18/2021 10:41 AM Note Text: DATE: SEPTEMBER 18, 2021 NAME: SANDEE NULL MR# [id number] PREOPERATIVE DIAGNOSIS: 1. Left lower lobe lung nodule. POSTOPERATIVE DIAGNOSIS: 1. Necrotic granuloma in the left lower lobe. PROCEDURES PERFORMED: 1. Left robotic-assisted lower lobe wedge resection x 1. 2. Left cryo-analgesia procedure, interspaces 6-9. (total time 20 minutes) 3. Chest tube placement x 1 (#24-Burkinan). SURGEON: Donald Huang Jr., M.D. RESIDENT SURGEON: NONE. (there was no qualified resident to assist with this operation). ACCOUNTS PAYABLE MANAGER: Erick Trujillo PA-C ANESTHESIA: General endotracheal anesthesia. [...] major fissure on a chest CT in [facility] in 09/2015. She was unaware that [...] minutes) 3. Chest tube placement x 1 (#24-Burkinan). The physician assistants participated in transporting the patient to and from the operating room, positioning of the patient, creation of robotic port sites, port placement and docking the robotic patient cart, bedside health assistant duties, changing instruments, passing materials into [...] The patient tolera (more content not included)... [facility] SURGICAL PATHOLOGYon 022 ADDENDUM 1: [facility] Comment on above: Order Comment: Speci men Type: TISSUE SPECIMEN [facility] Address: [address] [place] [address] Result Comment: With in the necrosis, a GMS stain shows small round to oval fungal yeasts with morphologic features that fit with Histoplasma. An AFB stain is negative. Addendum electronically signed by Milo Gan MD on 09/21/2021 at 12:08 PM Performed By: #### S #### [facility] CLIA [id number] [address] [place] [address] LABORATORY CLIA [id number] [address] [place] [address] [place] CASE REPORT Normal [facility] Comment on above: Order Comment: Speci men Type: TISSUE SPECIMEN [facility] Address: [address] [place] [address] Result Comment: Surg ical Pathology Report Case: [id number] Authorizing Provider: Donald Huang MD Collected: 09/18/2021 09:11 AM Ordering Location: [facility] Received: 09/18/2021 09:31 AM Operating Room Pathologist: Milo Gan MD Intraop: Willem Chavez MD Specimen: LUNG WEDGE RESECTION LEFT, Left Lower Lobe Wedge Performed By: #### S #### [facility] CLIA [id number] [address] [place] [address] LABORATORY CLIA [id number] [address] [place] [address] [place] CLINICAL HISTORY LOWER LOBE WEDGE RES ECTION, POSS LEFT LOWER LOBE SEGMENTECTOMY, POSS LEFT LOWER LOBECTOMY, MEDIASTINAL LYMPH NODE DISSECTION; Atricure cryoblation Normal [facility] Comment on above: Order Comment: Speci men Type: TISSUE SPECIMEN [facility] Address: [address] [place], [place] [address] Performed By: #### S #### [facility] CLIA [id number] [address] [place] [address] LABORATORY CLIA [id number] [address] [place] [address] DIAGNOSIS COMMENT Special stains for microorganisms (AFB and GMS) have been requested and will be reported in an addendum. [facility] Comment on above: Order Comment: Speci men Type: TISSUE SPECIMEN [facility] Address: [address] [place] [address] Performed By: #### S #### [facility] CLIA [id number] [address] [place] [address] LABORATORY CLIA [id number] [address] [place] [address] FINAL DIAGNOSIS Normal [facility] Comment on above: Order Comment: Speci men Type: TISSUE SPECIMEN [facility] Address: [address] [place] [address] Result Comment: A. L fanny, left lower lobe, wedge resection: - Necrotizing granuloma (See comment). Performed By: #### S #### [facility] CLIA [id number] [address] [place] [address] LABORATORY CLIA [id number] [address] [place] [address] FINAL PERFORMING LAB Normal [facility] Comment on above: Order Comment: Speci men Type: TISSUE SPECIMEN [facility] Address: [address] [place] [address] Result Comment: Diag nostic interpretation performed at [facility], [address] [place] [address] CLIA# [id number] Recreation Teacher: Tyler Simon M.D. Performed By: #### S #### [facility] CLIA [id number] [address] [place] [address] LABORATORY CLIA [id number] [address] [place] [address] GROSS DESCRIPTION Normal [facility] Comment on above: Order Comment: Speci men Type: TISSUE SPECIMEN [facility] Address: [address] [place] [address] Result Comment: A. L FANNY WEDGE RESECTION [...] remaining lung parenchyma is pink-martinez and spongy. Safe Technician sections are submitted as follows: A1 entire nodule with parenchymal margin perpendicular for frozen section A2 uninvolved lung parenchyma WE September 18, 2021 11:03 AM Intraoperative diagnosis performed at [facility], [address] [place] [address] Performed By: #### S #### [facility] CLIA [id number] [address] [place] [address] LABORATORY CLIA [id number] [address] [place] [address] STATES OF [facility] INTRAOPERATIVE DIAGNOSIS Normal [facility] Comment on above: Order Comment: Norbert eddy Type: TISSUE SPECIMEN [facility] Address: [address] [place] [address] Result Comment: A. L FANNY WEDGE RESECTION LEFT. A1 necrotic granuloma in background of lymphocytes and plasma cells (). WE September 18, 2021 11:04 AM Intraoperative diagnosis performed at [facility], [address] [place] [address] Performed By: #### S #### [facility] CLIA [id number] [address] [place] [address] LABORATORY CLIA [id number] [address] [place] [address] OF [place] XR CHEST 1V FRONTALon 2021 XR CHEST [...] Patchy opacities in the lung bases bilaterally Metal Fabricating Supervisor: AMY Transcribe Date/Time: Sep 19 2021 7:07A Dictated by : EDWIGE MENA MD This examination was interpreted and the report reviewed and electronically signed by: EDWIGE MENA MD on Sep 19 2021 7:09AM EST [id number] [facility] XR CHEST 1V FRONTAL * * *Final [...] AND LEFT SUPRAHILAR INFILTRATES, NEW SINCE 08/13/2021. Metal Fabricating Supervisor: [employer] Transcribe Date/Time: Sep 18 2021 12:30P Dictated by : FRANCIA RUVALCABA MD This examination was interpreted and the report reviewed and electronically signed by: FRANCIA RUVALCABA MD on Sep 18 2021 12:33PM EST [id number] Normal [facility] CNOVon 08-22-2021 CNOV Office Visit (FVTHOR ) SANDEE NULL ([id number]) 1990 F Date Time Provider Department 08/22/21 [...] major fissure on a chest CT in [facility] in 09/2015. She was unaware that [...] mg intramuscularly at bedtime as needed. - Pvmcswpa-Ir-Yjx-Fe-FA tab Take 1 tablet by mouth. - [...] right CVA (more content not included)... Normal [facility] 08-15-2021 [facility] Telephone (MEPRAD) MAHSASANDEE ( ) 1990 F Date Time Provider [...] left lung [R91.1] Order(s):CONSULT TO CARDIOTHORACIC SURGERY [[id number]] Order #: [id number]: 1 Prescriptions as of 08/15/2021 - famotidine (PEPCID) 10 mg tablet 20 mg. - albuterol HFA (PROVENTIL HFA, VENTOLIN HFA) 90 mcg/actuation inhaler Inhale 2 Puffs as instructed every 6 hours as needed. - budesonide-formoterol (SYMBICORT) 160-4.5 mcg/actuation inhaler Inhale 2 Puffs as instructed. - EPINEPHrine (EPIPEN) 0.3 mg/0.3 mL auto-injector Inject 0.3 mg intramuscularly at bedtime as needed. - Gcbqqogs-Gi-Epv-Fe-FA tab Take 1 tablet by mouth. - promethazine (PHENERGAN) 12.5 mg tablet Take 12.5 mg by mouth three times daily as needed. - tiotropium (SPIRIVA WITH HANDIHALER) 18 mcg inhalation capsule Inhale 1 capsule as instructed once daily. Use with HandiHaler. Problem List As Of Date: 08/15/2021 (None) Encounter Status:Closed by RADHA VANG on 08/15/21 [facility] Telephone (IRRFV) SANDEE NULL ([id number]) 1990 F Date Time Provider Department 08/15/21 HANNAH MYERS IRR During your visit today, we recorded the [...] - Vomiting Date Reviewed: 08/14/2021 Reviewed by: Miugel Lawrence RN - Fully Assessed Reason for [...] mg intramuscularly at bedtime as needed. - Vxtayikx-Hs-Ryh-Fe-FA tab Take 1 tablet by mouth. - promethazine (PHENERGAN) 12.5 mg tablet Take 12.5 mg by mouth three times daily as needed. - tiotropium (SPIRIVA WITH HANDIHALER) 18 mcg inhalation capsule Inhale 1 capsule as instructed once daily. Use with HandiHaler. Problem List As Of Date: 08/15/2021 (None) Encounter Status:Closed by HANNAH MYERS on 08/15/21 [facility] 08-14-2021 [facility] Telephone (PORTERRAD) SANDEE NULL ( ) 1990 F Date [...] the lung nodule will take place at [facility] because she lives closer to that hospital. She also says that she is having uncontrolled asthma symptoms. I have asked for her to follow up in pulmonary clinic so that we can discuss this more. She also tells me that she has been unable to get her chest CT from [facility] in [place] from the time that she was there [...] Diagnosis:Lung nodules [R91.8] Order(s):CT CHEST WO IVCON [[id number]] Order #: [id number] FUTURE IMAGING GUIDED BIOPSY LUNG [[id number]] Order #: [id number] Prescriptions as of 08/14/2021 - famotidine (PEPCID) 10 mg tablet 20 mg. - albuterol HFA (PROVENTIL HFA, VENTOLIN HFA) 90 mcg/actuation inhaler Inhale 2 Puffs as instructed every 6 hours as needed. - budesonide-formoterol (SYMBICORT) 160-4.5 mcg/actuation inhaler Inhale 2 Puffs as instructed. - EPINEPHrine (EPIPEN) 0.3 mg/0.3 mL auto-injector Inject 0.3 mg intramuscularly at bedtime as needed. - Rgkenetk-Sg-Yep-Fe-FA tab Take 1 tablet by mouth. - promethazine (PHENERGAN) 12.5 mg tablet Take 12.5 mg by mouth three times daily as needed. - tiotropium (SPIRIVA WITH HANDIHALER) 18 mcg inhalation capsule Inhale 1 capsule as instructed once daily. Use with HandiHaler. 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 - albuterol HFA (PROVENTIL HFA, VENTOLIN HFA) 90 mcg/actuation inhaler Inhale 2 Puffs as instructed every 6 hours as needed. - budesonide-formoterol (SYMBICORT) 160-4.5 mcg/actuation inhaler Inhale 2 Puffs as instructed. - EPINEPHrine (EPIPEN) 0.3 mg/0.3 mL auto-injector Inject 0.3 mg intramuscularly at bedtime as needed. - Vnqldlqb-Ov-Fnl-Fe-FA tab Take 1 tablet by mouth. - promethazine (PHENERGAN) 12.5 mg tablet Take 12.5 mg by mouth three times daily as needed. - tiotropium (SPIRIVA WITH HANDIHALER) 18 mcg inhalation capsule Inhale 1 capsule as instructed once daily. Use with HandiHaler. Problem List As Of Date: 04/06/2021 (None) Encounter Status:Closed by RADHA VANG on 04/06/21 Normal [facility] Covid-19 PCR (CVDTB)on 12-17 SARS-CoV-2 (COVID-19) RNA SULLY+probe Ql (Unsp spec) Not detected Normal NOT DETECTED [facility] Comment on above: Result Comment: This test is not yet approved or cleared by the [place] FDA. When there are no FDA-approved or cleared tests available, and other criteria are met, FDA can make tests available under an emergency access mechanism called an Emergency Use Authorization (EUA). The EUA for this test is supported by the [place] of Health and Human Service's (HHS's) declaration [...] Performed By: #### C VDTB, CVDAGS #### [facility] [address] [place] [address] Sofy Young SYMPTOMATIC COVID-19 ANTIGEN on 12-28-2020 EUA Statement SEE BELOW Normal [facility] Comment on above: Result Comment: This test [...] Performed By: #### C VDTB, CVDAGS #### [facility] [address] [place] [address] Sofy Young SARS-CoV-2 (COVID-19) RNA SULLY+probe Ql (Unsp spec) Negative Normal NEGATIVE [facility] Comment on above: Result Comment: CONF IRMATION BY PCR PENDING PER CDC GUIDELINES/ SYMPTOMATIC PATIENT. Performed By: #### C VDTBH, CVDAGS #### [facility] [address] [place] [address] Sofy Young David 04-21-2020 CNPN Telephone (AKPRAD) [...] Diagnosis:Lung nodules [R91.8] Order(s):CT CHEST WO IVCON [[id number]] Order #: [id number] FUTURE Prescriptions as of 04/21/2020 Sig: FAMOTIDINE [...] Status:Closed by RADHA VANG MD on 04/21/20 [facility] 04-14-2020 CNPN Telephone (AVXRCT) SANDEE NULL ([id number]) 1990 F Date Time Provider Department 04/14/20 [...] Encounter Status:Closed by MISA FLORIAN on 04/14/20 [facility] Depart Summaryon 04-04-2017 Depart Summary EMERGENCY DEPARTMENT DISCHARGE SUMMARYPATIENT NAME:SANDEE NULL : 27 Years SEX: Female PHONE:[id number]: 04/03/2017 9:44 PM : 1990 ATTENDING PHYSICIAN:Ti Bautista PCP: Vladimir Estrada DO CHIEF COMPLAINT: Asthma Flare-up Allergies No Allergies DocumentedProblems Active Asthma DISCHARGE DIAGNOSIS: DISCHARGE INSTRUCTIONS: Asthma, Adult, Nujt-cc-Ukvo HISTORY OF PRESENT ILLNESS:The patient is a 28-year-old female past medical history significant for asthma, right ventricular hypertrophy, congenital cardiomyopathy. Patient is in ED with complaint of shortness of breath. Patient states that it is acutely worsened within the last hour, however she has been in [place] for a business trip for several days [...] Internal Medicine Within Follow-up as needed Normal [facility] ED [facility] 04-04-2017 ED [place] [address] [facility] Department Discharge Instructions SANDEE NULL , Please provide this information to your Primary Care/Specialist Name : MAHSASANDEE Current Date : 04/03/2017 23:29:29DOB : 1990 [...] Procedure(s) and Patient Education(s) : Asthma, Adult, Wyxn-kg-Kfwd EMERGENCY SERVICES MEDICATION LISTLista de Medicaciones de los Servicios de Emergencia Name MAHSASANDEE MRN ([facility])-[id number] PLEASE READ THE FOLLOWING REGARDING YOUR MEDICATIONS [...] doses are changed, or new medications (including mrsu-deb-nfzoxtp products) are added. If you have any [...] TAKE UNTIL YOU TALK TO YOUR DOCTORNone [place] [address] Emergency Department Discharge Instructions Name: SANDEE NULL Current Date: 04/03/2017 23:29:29 : 1990 12:00 PM Primary Physician: Vladimir Estrada DO We would like to thank you for choosing [facility] for your emergency medical needs. We [...] and the health of those around you. [facility] offers many resources to help with smoking cessation. Call the [place] Tobacco Quit Line at 2-606-MCZA-NOW ( ).High blood pressure: Your screening blood [...] deadly infections. Discuss this with your child's concrete mixer loader truck mounted, or Public Health Department. Your family practice doctor can determine if you need pneumonia or flu vaccine. [facility] can be reached at .Domestic Violence:If you are a victim of domestic violence (physical, verbal, or emotional), you are not alone. Discuss this with your physician or a friend and call the [place] Domestic Violence Hotline or [place] Domestic Violence Hotline for assistance and support.You [...] physician, call the Physician Referral Line at (330) 178-BMRB (2342). Suicide Hotline:Your mental and emotional well-being is important. If you are in a mental health crisis or are having thoughts of suicide, please call the nationwide suicide hotline, anytime day or night, at 8-482-756-OFAH (3514).Community Vinyl Installer: You may be contacted by your local fire department for a follow up visit from a community morphology teacher. The community morphology teacher can help with a home safety check; follow up care, and general home care management. Pharmacy Information:Below is a list of 24 hour pharmacies that we are aware of. We suggest that you call the specific pharmacy for their hours before traveling to a location. Hours may vary on holidays. [facility] [address] [place], [phone] [place], [phone] [place], [phone] [place], [phone] [place], [phone] [facility] [place], [phone] [place], [phone] [place], [phone] 4617 [place], [phone] [place], [phone] [address] [phone] 859 [facility] [phone] [address], Ysbb407[address] [address] [place] [address] [phone] [place], [phone] [facility] HospitalmanojNorth [place], [phone] Take all medications as directed. If you need prescription assistance, contact the following agencies:?? Partnership for Prescription Assistance at or www.pparx.org?? [facility] at or www.CollegeScoutingReports.comstrx.org?? Whistle.co.uk is a site with many valuable coupons [...] ches. ???Pollen.???Mold.???Smoke. ???Cleaning products.???Hair sprays or aerosol sprays.???Hettinger fumes or strong smells. ???Cold air, weather [...] you are not home. Use a vacuum bobbin cleaner with a HEPA filter if possible.???Replace [...] Document Reviewed: 12/02/2013[employer] Patient Education ?2016 [employer]><><><><><><><><><><>< ><><><><><><><><><><><>< ><><><><><><><><><><><><><> <><><> Patient Visit Summary Signature SANDEE NULL has been given the following list of patient education materials, prescriptions and follow-up instructions: MAHSA Alarcon MARIA G, have received the above patient education materials/instructions and have verbalized understanding: Date Time Patient Signature Date Time Provider Signature Normal [facility] ED Physician Noteson 017 ED Physician Notes Patient: SANDEE NULL MRN: ([id number] Age: 27 years Sex: Female : 1990 Associated Diagnoses: None Author: Ti Bautista History of Present Illness The patient is a 28-year-old female past medical history significant for asthma, right ventricular hypertrophy, congenital cardiomyopathy. Patient is in ED with complaint of shortness of breath. Patient states that it is acutely worsened within the last hour, however she has been in [place] for a business trip for several days [...] or recorded.. Social history: Social and Psychosocial IfjxfqLaupfvq57/16/2017 Risk Assessment: Denies Alcohol UseSubstance Abuse04/03/2017 Risk [...] EST Chief Complaint-Triage Asthma Flare-up . Normal [facility] ED Physician Notes PDF Normal [facility] ED Physician Notes Patient: SANDEE NULL Age: [...] phase and only fair air movement. Normal [facility] ED Physician Notes PDF Normal [facility] XR Chest 2 Viewson 7 XR [...] 04/03/2017 22:30Transcribed by: HODA 04/03/2017 22:30Technologist: [facility] Vital Signs Date Time Vital Sign Value Performing Clinician Facility 05-27-2023 11:45-0500 Body height 157.48 cm Bessy Medina Other [facility] Other 05-27-2023 11:45-0500 Body mass index (BMI) [Ratio] 48.46 kg/m2 Bsesy Adam Other [facility] Other 05-27-2023 11:45-0500 Body temperature 97.1 [degF] Bessy Adam Other [facility] Other 05-27-2023 11:45-0500 Body weight 120.2 kg Bessy Adam Other [facility] Other 05-27-2023 11:45-0500 Respiratory rate 18 /min Bessy Adam Other [facility] Other 05-27-2023 11:45-0500 SaO2% (BldA) [Mass fraction] 97 % Bessy Adam Other [facility] Other 03-18-2023 11:20-0400 Body temperature 96.91 [degF] Radha Vang MD Work Phone: [facility] 03-18-2023 11:20-0400 Body weight 124.74 kg Radha Vang MD Work Phone: [facility] 03-18-2023 11:20-0400 Diastolic blood pressure 74 mm[Hg] Radha Vang MD Work Phone: [facility] 03-18-2023 11:20-0400 Heart rate 91 /min Radha Vang MD Work Phone: [facility] 03-18-2023 11:20-0400 Respiratory rate 16 /min Radha Vang MD Work Phone: [facility] 03-18-2023 11:20-0400 SaO2% (BldA) [Mass fraction] 98 % Radha Vang MD Work Phone: [facility] 03-18-2023 11:20-0400 Systolic blood pressure 127 mm[Hg] Radha Vang MD Work Phone: [facility] 03-12-2023 07:30-0400 Body temperature 98.3 [degF] PHYSICIAN NO [facility] 03-12-2023 07:30-0400 Diastolic blood pressure 82 mm[Hg] PHYSICIAN NO [facility] 03-12-2023 07:30-0400 Heart rate 96 /min PHYSICIAN NO [facility] 03-12-2023 07:30-0400 Respiratory rate 20 /min PHYSICIAN NO [facility] 03-12-2023 07:30-0400 SaO2% (BldA) [Mass fraction] 96 % PHYSICIAN NO [facility] 03-12-2023 07:30-0400 Systolic blood pressure 120 mm[Hg] PHYSICIAN NO [facility] 03-11-2023 14:48-0400 Body height 162.56 cm PHYSICIAN NO [facility] 03-10-2023 09:00-0400 Body weight 126.09 kg PHYSICIAN NO [facility] 10-19-2021 09:15-0400 Body height 157.5 cm Erick Trujillo PA-C Work Phone: [facility] 10-19-2021 09:15-0400 Body weight 129.73 kg Erick Trujillo PA-C Work Phone: [facility] 10-19-2021 09:15-0400 Diastolic blood pressure 91 mm[Hg] Erick Trujillo PA-C Work Phone: [facility] 10-19-2021 09:15-0400 Heart rate 100 /min Erick Trujillo PA-C Work Phone: [facility] 10-19-2021 09:15-0400 SaO2% (BldA) [Mass fraction] 96 % Erick Trujillo PA-C Work Phone: [facility] 10-19-2021 09:15-0400 Systolic blood pressure 141 mm[Hg] Erick Trujillo PA-C Work Phone: [facility] 09-14-2021 09:15-0400 Body height 157.5 cm Donald Huang MD Work Phone: [facility] 09-14-2021 09:15-0400 Body weight 131.54 kg Donald Huang MD Work Phone: [facility] 09-14-2021 09:15-0400 Diastolic blood pressure 84 mm[Hg] Donald Huang MD Work Phone: [facility] 09-14-2021 09:15-0400 Heart rate 103 /min Donald Huang MD Work Phone: [facility] 09-14-2021 09:15-0400 SaO2% (BldA) [Mass fraction] 100 % Donald Huang MD Work Phone: [facility] 09-14-2021 09:15-0400 Systolic blood pressure 132 mm[Hg] Donald Huang MD Work Phone: [facility] 09-12-2021 12:30-0400 Body height 157.5 cm Pacc 3 Work Phone: [facility] 09-12-2021 12:30-0400 Body temperature 97.59 [degF] Pacc 3 Work Phone: [facility] 09-12-2021 12:30-0400 Body weight 131.54 kg Pacc 3 Work Phone: [facility] 09-12-2021 12:30-0400 Diastolic blood pressure 79 mm[Hg] Pacc 3 Work Phone: [facility] 09-12-2021 12:30-0400 Heart rate 98 /min Pacc 3 Work Phone: [facility] 09-12-2021 12:30-0400 Respiratory rate 20 /min Pacc 3 Work Phone: [facility] 09-12-2021 12:30-0400 SaO2% (BldA) [Mass fraction] 100 % Pacc 3 Work Phone: [facility] 09-12-2021 12:30-0400 Systolic blood pressure 127 mm[Hg] Pacc 3 Work Phone: [facility] 08-22-2021 09:29-0400 Body height 157.5 cm Donald Huang MD Work Phone: [facility] 08-22-2021 09:29-0400 Body temperature 97.81 [degF] Donald Huang MD Work Phone: [facility] 08-22-2021 09:29-0400 Body weight 132.04 kg Donald Huang MD Work Phone: [facility] 08-22-2021 09:29-0400 Diastolic blood pressure 80 mm[Hg] Donald Huang MD Work Phone: [facility] 08-22-2021 09:29-0400 Heart rate 128 /min Donald Huang MD Work Phone: [facility] 08-22-2021 09:29-0400 SaO2% (BldA) [Mass fraction] 97 % Donald Huang MD Work Phone: [facility] 08-22-2021 09:29-0400 Systolic blood pressure 127 mm[Hg] Donald Huang MD Work Phone: [facility] Encounters Encounter Date Encounter Type Care Provider Facility Start: 03-26-2024 End: 04-09-2024 Orders Only Yasmin Baez APRN.GRAPHIC ART SALES REPRESENTATIVE Work Phone: [facility] Comment on above: Screening for cervic al cancer (Primary Dx) Screening for malign ant neoplasm of cervix (Primary Dx) [facility] ( [place]) Start: 02-13-2024 End: 02-14-2024 ambulatory [facility] Start: 11-13-2023 End: 11-13-2023 Emergency department patient visit [facility] Start: 11-05-2023 End: 11-06-2023 Emergency department patient visit YULISA TOLEDO [facility] [place] Start: 09-06-2023 End: 09-07-2023 Emergency department patient visit KIAH PRO [facility] [place] Start: 09-06-2023 End: 09-07-2023 Emergency department patient visit [facility] Start: 06-25-2023 End: 06-26-2023 ambulatory SATISH ESCALANTE [facility] [place] Start: 06-24-2023 End: 06-26-2023 Emergency department patient visit ALISON PAREKH [facility] [place] Start: 06-24-2023 End: 06-25-2023 ambulatory [facility] Start: 05-27-2023 End: 05-27-2023 ambulatory Bessy Adam Other [facility] Other Start: 05-27-2023 Office outpatient vi sit 15 minutes Bessy Adam [facility] Start: 05-26-2023 ambulatory Hardy Briones acility:[facility] Start: 03-18-2023 End: 03-18-2023 Patient encounter procedure Radha Vang MD Work Phone: Pulmonary Medicine Comment on above: Lung nodules (Primar y Dx); Moderate persistent asthma without complication; BMI 50.0-59.9, adult (HCC); Patient non adherence; Nodule of left lung; 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) Start: 03-10-2023 End: 03-12-2023 Evaluation and management of inpatient PHYSICIAN [facility] Work Phone: Start: 10-19-2021 End: 10-19-2021 [...] 09-21-2021 E-mail encounter fro m caregiver Donald Haung MD Work Phone: [facility] Start: 09-21-2021 End: 09-21-2021 ambulatory [facility] Facility: Start: 09-19-2021 Orders Only Donald Huang MD Work Phone: Thoracic Surgery Comment on above: Lung nodule (Primary Dx) Status post lung lukasz marilyn (Primary Dx) Start: 09-14-2021 End: 09-14-2021 Patient encounter procedure Donald Huang MD Work Phone: Thoracic Surgery Comment on above: Lung nodule (Primary Dx) Start: 09-12-2021 End: 09-12-[address] [facility] 3 Work Phone: Pre Anesthesia Comment on above: Pre-op evaluation (P rimary Dx); Lung nodule; Migraine without status migrainosus, not intractable, unspecified migraine type; Uncomplicated asthma, unspecified asthma severity, unspecified whether persistent; Former smoker; Class 3 severe obesity due to excess calories without serious comorbidity with body mass index (BMI) of 50.0 to 59.9 in adult ([facility]); BMI 50.0-59.9, adult ([facility]); PTSD (post-traumatic stress disorder); Bipolar 1 disorder ([facility]); Smoker Start: 09-12-2021 End: 09-12-2021 Preprocedural examination done [facility] 3 Work Phone: Pre Anesthesia Start: 09-11-2021 End: 09-11-2021 ambulatory Pulm 2 Work Phone: Pulmonary Medicine Comment on above: Spirometry Start: 09-11-2021 End: 09-11-2021 Patient encounter procedure Pulm Lab [facility] 2 Work Phone: WILFREDO HERNANDEZ [facility] Start: 09-11-2021 End: 09-11-2021 Patient encounter status [...] for other preprocedural examination DR FACUNDO WELSH [facility] Start: 06-08-[address] FACUNDO WELSH Facility [...] 04-04-2017 Emergency department patient visit VLADIMIR ESTRADA Facility:[facility] Start: 03-04-2017 End: 03-05-2017 Ambulatory DEFAULT PHYSICIAN Facility:[facility] Procedures Date Procedure Procedure Detail Performing Clinician Start: 09-11-2021 Co diffusing capacity L massimo Huang MD Work Phone: Start: 08-13-[address] attenuation skull base mid-thigh Radha Vang MD Work Phone: H/O: surgery Status post lung surgery Donald Huang MD Work Phone: Plan of Treatment Date Care Activity Detail Author Start: 10-09-2030 Urine microalbumin profile [facility] Start: 03-26-2029 Screening for malign ant neoplasm of cervix Cervical Cancer Screening [facility] Start: 01-18-2024 Covid-19 Vaccine ( season) Covid-19 Vaccine ( season) [facility] Start: 01-18-2024 Influenza vaccination Influenza Vacc ine (#1) [facility] Start: 03-12-2023 [facility] Start: 03-10-2023 Hospital admission [facility] Start: 01-17-2023 Covid-19 Vaccine ( season) Covid-19 Vaccine () [facility] Start: 01-17-2023 Influenza vaccination INFLUENZA (#1) [facility] Start: 05-19-2022 DEPRESSION ASSESSMENT DEPRESSION ASS ESSMENT [facility] Start: 02-03-2022 HPV TESTING HPV TESTING [facility] Start: 01-17-2022 Influenza vaccination INFLUENZA (Sea son Ended) [facility] Start: 09-11-2021 End: 08-28-2022 aPTT in Platelet poor plasma by Coagulation assay ACTIVATED PTT Lab STAT Preoperative testing Expected: 09/11/2021 (Approximate), Expires: 08/28/2022 [facility] Work Phone: Comment on above: Expected: 09/11/2021 (Approximate), Expires: 08/28/2022 Start: 09-11-2021 End: 08-28-2022 CBC W Auto Differential panel - Blood CBC + DIFF Lab STAT Preoperative testing Expected: 09/11/2021 (Approximate), Expires: 08/28/2022 [facility] Work Phone: Comment on above: Expected: 09/11/2021 (Approximate), Expires: 08/28/2022 Start: 09-11-2021 End: 08-28-2022 Comprehensive metabolic 2000 panel - Serum or Plasma COMP METABOLIC PANEL Lab STAT Preoperative testing Expected: 09/11/2021 (Approximate), Expires: 08/28/2022 [facility] Work Phone: Comment on above: Expected: 09/11/2021 (Approximate), Expires: 08/28/2022 Start: 09-11-2021 End: 08-28-2022 CONFIRM BLOOD TYPE CONFIRM BLOOD TYPE Blood Bank Routine Preoperative testing Expected: 09/11/2021 (Approximate), Expires: 08/28/2022 [facility] Work Phone: Comment on above: Expected: 09/11/2021 (Approximate), Expires: 08/28/2022 Start: 09-11-2021 End: 08-28-2022 ECG COMPLETE ECG COMPLETE ECG Routine Preoperative testing Expected: 09/11/2021 (Approximate), Expires: 08/28/2022 [facility] Work Phone: Comment on above: Expected: 09/11/2021 (Approximate), Expires: 08/28/2022 Start: 09-11-2021 End: 08-28-2022 PT panel - Platelet poor plasma by Coagulation assay PROTHROMBIN TIME/PT Lab STAT Preoperative testing Expected: 09/11/2021 (Approximate), Expires: 08/28/2022 [facility] Work Phone: Comment on above: Expected: 09/11/2021 (Approximate), Expires: 08/28/2022 Start: 09-11-2021 End: 11-11-2021 TYPE AND SCREEN,30 DAY TYPE AND SCREEN,30 DAY Blood Bank Routine Preoperative testing Expected: 09/11/2021 (Approximate), Expires: 11/11/2021 [facility] Work Phone: Comment on above: Expected: 09/11/2021 (Approximate), Expires: 11/11/2021 Start: 09-11-2021 End: 08-28-2022 URINALYSIS, DIPSTICK ONLY URINALYSIS, DIPSTICK ONLY Lab STAT Preoperative testing Expected: 09/11/2021 (Approximate), Expires: 08/28/2022 [facility] Work Phone: Comment on above: Expected: 09/11/2021 (Approximate), Expires: 08/28/2022 Start: 08-28-2021 End: 08-28-2022 SARS-CoV-2 (COVID-19) RNA [Presence] in Respiratory specimen by SULLY with probe detection PRE-PROCEDURE & PRE-OPERATIVE COVID Microbiology Routine Preoperative testing Expected: 08/28/2021, Expires: 08/28/2022 [facility] Work Phone: Comment on above: Expected: 08/28/2021 , Expires: 08/28/2022 Start: 07-26-2021 COVID-19 VACCINE (4 - Moderna series) COVID-19 VACCINE (4 - Moderna series) [facility] Start: 01-17-2021 Influenza vaccination INFLUENZA (#1) [facility] Start: 02-03-2013 PAP TESTING PAP TESTING [facility] Start: 02-03-2013 Screening for malign ant neoplasm of cervix Cervical Cancer Screening [facility] Start: 02-03-2011 Urine microalbumin profile DTAP,TDAP,TD (1 - Tdap) [facility] Start: 02-03-2010 ANNUAL PCP TEAM FIBROUS WALLBOARD INSPECTOR SAVANNAH DISEASE VISIT ANNUAL PCP TEAM CHRONIC DISEASE VISIT [facility] Start: 02-03-2010 Depression Screening Depression Scre ening [facility] Start: 02-03-2010 HEPATITIS C SCREENING HEPATITIS C [facility] Start: 02-03-2010 Hepatitis C screening Hepatitis C [facility] Start: 02-03-2010 HIV SCREENING HIV SCREENING [facility] Start: 02-03-2010 HIV screening HIV Screening [facility] Start: 2004 Adult depression screening assessment DEPRESSION SCREENING [facility] Start: 02-03-1998 PNEUMOCOCCAL (1 - PCV) PNEUMOCOCCAL (1 - PCV) [facility] Start: 02-03-1998 Pneumococcal vaccination [facility] End: 04-16-2024 Ct thorax w/o contrast material CT CHEST WO IVCON Radiology Routine Lung nodules 1 Occurrences starting 03/18/2023 until 04/16/2024 [facility] Work Phone: Comment on above: 1 Occurrences starti ng 03/18/2023 until 04/16/2024 End: 09-27-2022 LUNG DIFFUSION CAPACITY (DLCO) LUNG DIFFUSION CAPACITY (DLCO) PFT Routine Preoperative testing 1 Occurrences starting 08/28/2021 until 09/27/2022 [facility] Work Phone: Comment on above: 1 Occurrences starti ng 08/28/2021 until 09/27/2022 LUNG DIFFUSION CAPAC ITY (DLCO) LUNG DIFFUSION CAPACITY (DLCO) PFT Routine Preoperative testing 09/11/2021 2:21 PM EDT [facility] Work Phone: PAP TEST PAP TEST Lab Yodit cobian Screening for cervical cancer 03/26/2024 3:39 PM EST [facility] Work Phone: Patient Education Depression, Ad ult (DC) Bipolar Disorder (DC) Suicide Prevention [facility] DC Instructions [facility] Work Phone: Patient referral [facility] Work Phone: Pulmonary rehabilita tion pro [facility] Procedures Routine Status post lung surgery Ordered: 09/19/2021 [facility] Work Phone: Comment on above: Ordered: 09/19/2021 End: 10-19-2022 Radiologic exam chest 2 views XR CHEST 2V FRONTAL/LAT Radiology Routine Lung nodule 1 Occurrences starting 09/19/2021 until 10/19/2022 [facility] Work Phone: Comment on above: 1 Occurrences starti ng 09/19/2021 until 10/19/2022 End: 09-27-2022 SPIROMETRY BASELINE ONLY SPIROMETRY BASELINE ONLY PFT Routine Preoperative testing 1 Occurrences starting 08/28/2021 until 09/27/2022 [facility] Work Phone: Comment on above: 1 Occurrences starti ng 08/28/2021 until 09/27/2022 [facility] Immunizations Immunization Date Immunization Notes Care Provider Gabrielle [facility] 03-11-2023 influenza, injectabl e, quadrivalent, preservative free PHYSICIAN NO [facility] 03-11-2023 influenza virus vaccine, unspecified formulation Yasmin Baez APRN.GRAPHIC ART SALES REPRESENTATIVE Work Phone: [facility] 10-09-2020 tetanus toxoid, redu rosana diphtheria toxoid, and acellular pertussis vaccine, adsorbed Donald Huang MD Work Phone: [facility] 04-05-2019 influenza, injectabl e, quadrivalent, preservative free Donald Huang MD Work Phone: [facility] 06-12-2015 influenza, injectabl e, quadrivalent, preservative free Donald Huang MD Work Phone: [facility] 06-12-2015 measles, mumps and rubella virus vaccine Donald Huang MD Work Phone: [facility] 01-25-2004 measles, mumps and rubella virus vaccine Donald Huang MD Work Phone: [facility] 01-25-2004 tetanus toxoid, adsorbed Donald Huang MD Work Phone: [facility] 08-11-1996 diphtheria, tetanus toxoids and acellular pertussis vaccine, unspecified formulation Donald Huang MD Work Phone: [facility] 08-11-1996 hepatitis B vaccine, pediatric or pediatric/adolescent dosage Donald Huang MD Work Phone: [facility] 08-11-1996 measles, mumps and rubella virus vaccine Donald Huang MD Work Phone: [facility] 08-11-1996 poliovirus vaccine, unspecified formulation Donald Huang MD Work Phone: [facility] 01-26-1996 diphtheria, tetanus toxoids and acellular pertussis vaccine, unspecified formulation Donald Huang MD Work Phone: [facility] 01-26-1996 hepatitis B vaccine, pediatric or pediatric/adolescent dosage Donald Huang MD Work Phone: [facility] 07-28-1995 haemophilus influenz ae type b vaccine, conjugate unspecified formulation Donald Huang MD Work Phone: [facility] 07-28-1995 hepatitis B vaccine, pediatric or pediatric/adolescent dosage Donald Huang MD Work Phone: [facility] 07-28-1995 measles, mumps and rubella virus vaccine Donald Huang MD Work Phone: [facility] 07-28-1995 poliovirus vaccine, unspecified formulation Donald Huang MD Work Phone: [facility] 1992 diphtheria, tetanus toxoids and acellular pertussis vaccine, unspecified formulation Donald Huang MD Work Phone: [facility] 1990 haemophilus influenz ae type b vaccine, conjugate unspecified formulation oDnald Huang MD Work Phone: [facility] 1990 poliovirus vaccine, unspecified formulation Donald Huang MD Work Phone: [facility] 1990 diphtheria, tetanus toxoids and acellular pertussis vaccine, unspecified formulation Donald Huang MD Work Phone: [facility] 1992 haemophilus influenz ae type b vaccine, conjugate unspecified formulation Donald Huang MD Work Phone: [facility] 1992 poliovirus vaccine, unspecified formulation Donald Huang MD Work Phone: [facility] Payers Date Payer Category Payer Self-pay [id number] 2019 Medicaid [employer] [id number] 2019-Present [phone] [address] [place] [address] Medicaid [id number] 2019 Medicaid [id number] 2017 Unknown [id number] 1990 Unknown [id number] [id number]. 593 1992 Unknown [id number] 2.16.840.1.768178.3.579.2. 593 1992 Unknown [id number] 2.16.840.1.245895.3.579.2. 593 1992 Unknown [id number] 2.16.840.1.311434.3.579.2. 593 1992 Unknown [id number] 2.16.840.1.223855.3.579.2. 593 1992 Unknown [id number] 2.16.840.1.461036.3.579.2. 593 1992 Unknown [id number] 2.16.840.1.345976.3.579.2. 593 1992 Unknown [id number] 2.16.840.1.317493.3.579.2. 1286 1992 Unknown [id number] 2.16.840.1.595179.3.579.2. 1286 1992 Unknown [id number] 2.16.840.1.217166.3.579.2. 1286 1992 Unknown [id number] 2.16.840.1.951270.3.579.2. 1286 1992 Unknown [id number] 2.16.840.1.483702.3.579.2. 1286 1959 Self-pay [id number] 1959 Unknown [id number] Private Health Insurance [employer] [id number] [facility] [id number] Unknown [id number] [id number]. 531 Unknown [id number] [id number]. 531 Social History Date Type Detail Facility Start: 04-04-2020 Tobacco smoking stat us [facility] Ex-smoker [facility] Start: 03-10-2023 End: 12-03-2019 History of tobacco use Current smoker [facility] End: 12-03-2019 History of tobacco use Cigarette Smoker [facility] Start: 04-04-2020 End: 03-18-2023 Cigarettes smoked current (pack per day) - Reported 2 [facility] Start: 04-04-2020 End: 09-12-2021 Tobacco use and exposure Smokeless tobacco non-user [facility] Start: 1990 Sex Assigned At Female C [facility] Start: 08-12-2021 End: 09-18-2021 Exposure to SARS-CoV-2 (event) Not sure [facility] Start: 09-12-2021 Tobacco smoking stat us NHIS Smokes tobacco daily [facility] Start: 09-12-2021 End: 10-19-2021 Alcohol intake Ex-drinker (finding) [facility] Start: 04-04-2020 End: 03-18-2023 Tobacco use panel [facility] National Score (1-10 0), lower number is lower risk Not on file [facility] Start: 04-04-2020 Gender identity Identifies as female gender (finding) [facility] Start: 04-04-2020 Sexual orientation Choose not to dis close [facility] Goals Date Patient Goal Desired Activity /State Functional Status Date Assessment Result Facility 03-12-2023 Functional status Patient at Baseline [facility] Work Phone: Mental Status Date Assessment Result Facility 03-12-2023 Cognitive function Cognitive Sta tus Patient at Baseline [facility] Work Phone: Clinical Notes 08-13-2021 to 04-09-2024 Mouna Arthur MA - 04/09/2024 12:30 PM Yasmin Caldwell APRN.GRAPHIC ART SALES REPRESENTATIVE - 03/27/2024 7:14 PM EST Note Date & Type Note Facility 04-09-2024 Note HNO ID: [id number] Author: MOUNA ARTHUR MA Service: ? Author Type: Pipe Puller Type: Progress Notes Filed: 04/09/2024 12:32 Note Text: [facility] Provider Action/FYI Pap/HPV screening completed at the [facility] screening event on 03/26/2024. Pap Results: Interpretation Negative for intraepithelial lesion or malignancy. HPV Results: High Risk HPV Type 16 DNA Not detected High Risk HPV Type 18 DNA Not detected High Risk HPV Other Type DNA Not detected Patient notified of results. Mouna Arthur MA [facility] 04-09-2024 History of Present illness Narrative [facility] Provider Action/FYI Pap/HPV screening completed at the [facility] screening event on 03/26/2024. Pap Results: Interpretation Negative for intraepithelial lesion or malignancy. HPV Results: High Risk HPV Type 16 DNA Not detected High Risk HPV Type 18 DNA Not detected High Risk HPV Other Type DNA Not detected Patient notified of results. Mouna Arthur MA documented in this encounter [facility] 03-27-2024 Note HNO ID: [id number] Author: YASMIN BAEZ APRN.CNP Service: ? Author Type: Nurse Practitioner Type: Progress Notes Filed: 03/27/2024 19:15 Note Text: Specimen was collected by a licensed professional volunteer provider. The sensitive examination was discussed with the Patient or Patient's Authorized Safe Technician. As applicable, any other physician, advance practice provider, medical student, or other health professional student that will be observing or involved in the sensitive examination for educational or training purposes was discussed with the Patient or Authorized Safe Technician. The Patient or Authorized Safe Technician has agreed to proceed with the sensitive examination. (Sensitive examination includes inspection and/or palpation of the breasts, pelvis, prostate and anorectal regions) Patient was seen for cervical cancer screening. [facility] on March 26 2024. Yasmin Baez APRN.CNP [facility] 03-27-2024 History of Present illness Narrative Specimen was collected by a licensed professional volunteer provider. The sensitive examination was discussed with the Patient or Patient's Authorized Safe Technician. As applicable, any other physician, advance practice provider, medical student, or other health professional student that will be observing or involved in the sensitive examination for educational or training purposes was discussed with the Patient or Authorized Safe Technician. The Patient or Authorized Safe Technician has agreed to proceed with the sensitive examination. (Sensitive examination includes inspection and/or palpation of the breasts, pelvis, prostate and anorectal regions) Patient was seen for cervical cancer screening. [facility] on March 26 2024. Yasmin Baez APRN.CNP documented in this encounter [facility] 03-26-2024 Note Patient Outreach (HE DINO) SANDEE NULL ([id number]) 1990 F Date Time Provider Department 03/26/24 MOUNA ARTHUR During your visit today, we recorded the following information about you: Mouna Arthur MA 04/09/2024 12:32 PM Signed [facility] Provider Action/FYI Pap/HPV screening completed at the [facility] screening event on 03/26/2024. Pap Results: Interpretation Negative for intraepithelial lesion or malignancy. HPV Results: High Risk HPV Type 16 DNA Not detected High Risk HPV Type 18 DNA Not detected High Risk HPV Other Type DNA Not detected Patient notified of results. Mouna Arthur MA Allergies As of Date: 03/26/2024 Noted Allergy Reaction ADHESIVE TAPE-SILICONES 10/19/2021 14 - Other: See Comments Comments: Blisters, peeling skin LATEX 01/19/2017 2 - Rash LEVOFLOXACIN 04/04/2020 14 - Other: See Comments Comments: tendenitis METRONIDAZOLE 12/02/2014 11 - Vomiting VANCOMYCIN 10/19/2021 4 - Hives Date Reviewed: 03/18/2023 Reviewed by: Perico Saucedo MA - Fully Assessed Reason for Visit: Community Outreach [Other] Cmt: [facility] Prescriptions as of 04/09/2024 - citalopram hydrobromide (CELEXA) 10 mg tablet TAKE 1 TABLET BY MOUTH EVERY DAY IN THE MORNING FOR 15 DAYS - lamoTRIgine (LAMICTAL) 25 mg tablet TAKE 1 TABLET BY MOUTH EVERY DAY FOR 15 DAYS - hydrOXYzine pamoate (VISTARIL) 50 mg capsule TAKE 1 CAPSULE BY MOUTH EVERY 6 HOURS NEEDED FOR ANXIETY FOR 15 DAYS - traZODone (DESYREL) 50 mg tablet TAKE 1 TABLET BY MOUTH EVERY DAY AT BEDTIME NEEDED FOR INSOMNIA FOR 15 DAYS - ARIPiprazole monohydrate (ABILIFY MAINTENA) 400 mg sers injection as directed Intramuscular Once a month for 30 days - albuterol HFA (PROVENTIL HFA, VENTOLIN HFA) 90 mcg/actuation inhaler Inhale 2 Puffs as instructed every 6 hours as needed for wheezing/shortness of breath. - ipratropium-albuterol (DUONEB) 0.5 mg-3 mg(2.5 mg base)/3 mL nebu Inhale 3 mL as instructed every 6 hours as needed for wheezing/shortness of breath. - budesonide-formoterol (SYMBICORT) 160-4.5 mcg/actuation inhaler Inhale 2 Puffs as instructed two times a day. Meds Comments as of 09/12/2021: Pepcid if normally taken in the morning. Inhalers Problem List As Of Date 03/26/2024 Noted Resolved Lung nodule [R91.1] 08/22/2021 Migraines [G43.909] 09/12/2021 Asthma [J45.909] 09/12/2021 Former smoker [Z87.891] 09/12/2021 09/12/2021 Obesity [E66.9] 09/12/2021 PTSD (post-traumatic stress disorder) [F43.10] 09/12/2021 Bipolar 1 disorder (HCC) [F31.9] 09/12/2021 09/12/2021 Smoker [F17.200] 09/12/2021 Left lower lobe pulmonary nodule [R91.1] 09/18/2021 Encounter Status:Closed by MOUNA ARTHUR on 04/09/24 [facility] 05-27-2023 Evaluation note Encounter Date Diagnosis Assessment [...] compresses or warm soaks of the finger. Can'tWait Other 10-31-2023 Instructions* Patient Instructions* Radha Vang MD - 03/18/2023 11:48 AM EDT Please take the symbicort inhaler two puffs twice daily. Take albuterol as needed. Radha Vang MD With questions or concerns, please call the following: [email or web address] Pulmonary Physician Office [phone] Press Option #2 for pulmonary office documented in this [facility]10-[facility]23 History of Present illness Narrative* Radha Vang [...] 18, 2023 TIME: 11:33 AM PAGER/CONTACT #: [phone] documented in this encounter[facility]10-25-2023 Discharge summary Author Hardy iglesias [facility] March 12, 2023 7:44am Note Date/Time March 12, 2023 7 :41am [facility] [address] [place] [address] Discharge Summary Signed Patient: Sandee Null MR#: [id number] : 1990 Acct:[id number] Age/Sex: 33 / F Adm Date: 3 Loc: Room: [address] [place] [address]: Jus Santos MD Copies to: [...] I reviewed the history and performed the joens elements of the assessment. I formulated the [...] self or stop treatment, but to call [facility], 911 or come to the nearest emergency [...] Instructions: Important Contact Information You can call [facility] at [phone] any time day or night if you have emergent questions or question regarding discharge instructions. If at any time you are feeling an increase inyour psychiatric symptoms, call your physician or behavioral healthcare provider. If any time you have thoughts of harming yourself or others contact one of the following: Call 8 (available 09/12) Crisis Text Line (available 09/12) text 4HOPE to [phone] [facility] Hope Line (available 8 a.m. Midnight) call [phone] ([phone]) Prescriptions: New trazodone 50 mg Tablet 50 [...] states next dose due 03/17. Follow Up: [facility] [Other] (Sees Dr. Doris Edmondson.) [facility] [Outside] (Wants counseling at [facility] Wiliam Olivares, [facility] [Referring] - (Call your primary provider with any medical needs. ) Documented By: Hardy Jones MD 3 0740 Signed By: <Electronically signed by Hardy Jones MD> 03/12/23 0744 [facility] Work Phone: 1(477) 243-804410-25-2023 Hospital Discharge instructions Additional Instructions Important Contact Information You can call [facility] at [phone] any time day or night if you have emergent questions or question regarding discharge instructions. If at any time you are feeling an increase in your psychiatric symptoms, call your physician or behavioral healthcare provider. If any time you have thoughts of harming yourself or others contact one of the following: Call (available 09/12) Crisis Text Line (available 09/12) text 4HOPE to [phone] [facility] Hope Line (available 8 a.m. Midnight) call [phone] ([phone]) Regular Diet No Activity [facility]ions[facility] Work Phone: 1(595) 753-167510-24-2023 Progress note Author Hardy iglesias [facility] March 11, 2023 10:45am Note Date/Time March 11, 2023 8 :58am [facility] [address] [place], [place] [id number] Psychiatry Progress Note Signed Patient: Sandee Null MR#: [id number] : 1990 Acct:[id number] Age/Sex: 33 / F Adm Date: 3 Loc: 1S Room: [address] [place] [address] Type : ADM IN Attending Dr: Jus [...] <Electronically signed by Hardy Jones MD> 03/11/23 1047 [facility] Work Phone: 1(739) 718-319110-23-2023 History and physical note Author Hardy iglesias [facility] March 10, 2023 1:17pm Note Date/Time March 10, 2023 8 :25am [facility] [address] [place] [address] Psychiatry H&P Signed Patient: Sandee Null MR#: [id number] : 1990 Acct:[id number] Age/Sex: 33 / F Adm Date: 3 Loc: Room: [address] [place] [address] Type: ADM IN Attending Dr: Jus Santos MD Copies to: MD Jus Jimneez MD NO FAMILY PHYSICIAN~ Date of Service: [...] ideation. Denies hallucinations Insight: fair Judgment: fair [facility] Medical History (Updated 03/10/23 @ 08:28 [...] Acute Documented By: Hardy Jones MD 3 0754 Signed By: <Electronically signed by Hardy Jones MD> 03/10/23 1312 [facility] Work Phone: 1(748) 169-163006-03-2022 History of Present illness Narrative* Erick Trujillo [...] Surgery PRN Erick Trujillo PA-C Thoracic Surgery [id number] DATE: October 19, 2021 TIME: 9:34 AM documented in this encounterKindred [facility]05-07-2022 Miscellaneous Notes* Telephone Encounter - Donald Huang MD - 09/22/2021 4:48 PM EDT Patient called asking for narcotic pain medication. She did not take any home with her at discharge. Pain has increased today. I sent in a prescription for oxycodone 5 mg q 6 hrs prn (#28). documented in this encounterKindred Healthcare05-04-2022 NoteHNO ID: [id number] Author: Misa Carrasco (Neurology Professor) Service: Pharmacy Author Type: ? Type: Plan [...] or your Primary Care Provider. Misa Carrasco (Neurology Professor) PAGER: [phone] September 19, 2021 5:07 [facility]05-04-2022 NoteHNO ID: [id number] Author: Beena Brumfield [facility] Service: Pharmacy Author Type: Pharmacist Type: Plan of Care Filed: 09/19/2021 4:59 PM Note Text: PHARMACY MEDICATION REVIEW Patient Name: Sandee Null : 1990 The following medications were updated within the ELECTRICAL EQUIPMENT TECHNICIAN medication list: Medications ADDED to ELECTRICAL EQUIPMENT TECHNICIAN medication list ? none Medications CHANGED on ELECTRICAL EQUIPMENT TECHNICIAN medication list ? Symbicort - Pt reports using BID. Medications REMOVED from ELECTRICAL EQUIPMENT TECHNICIAN medication list ? Spiriva - Pt reports not taking Additional comments: See below. Pt reports adherence to all medications except Spiriva. Pt states that the powder in the inhaler makes her gag, so decided to discontinue. MD not aware. Pt also reports needing a refill on Symbicort. The below information represents the best possible medication history: Yes Medication history completed by: travel agent: Fariba Benoit Source of history: Patient: Reliability of source: Appears reliable, clearly identified: Medication name, Medication dose, Medication route and Medication frequency and Pharmacy records: Surescripts. Medication nonadherence identified: No barriers noted Reconciliation completed: Yes All ELECTRICAL EQUIPMENT TECHNICIAN medications addressed by LIP Patient interested in Bedside Delivery Services or using OP Pharmacy at discharge? Yes. Discharge Pharmacy Updated Preferred outpatient pharmacy: [facility] Allergies: Latex Rash Levofloxacin Other: [...] on 09/14/2021 Facility-Administered Medications: None Fariba Benoit, Marshmallow Machine Operator September 19, 2021 10:48 AM Addendum The medication history completed by the internal communications writer has been reviewed; patient's prior to admission medication list has been updated. Changes and additions to the details in the above note are indicated by and italics. Beena Brumfield PharmD, [facility] September 19, 2021 4:59 [facility]05-04-2022 NoteHNO ID: [id number] Author: Rob Scott PA-C Service: Cardiac Surgery Author Type: Physician Compliance Aide Type: Procedures Filed: 09/19/2021 9:12 AM Note [...] on dressing - Well-tolerated, no complications [facility] NoteHNO ID: [id number] Author: Pj Rendon DO Service: Anesthesiology Author [...] September 18, 2021 TIME: 8:59 AM CSN: [id number] NoteHNO ID: [id number] Author: Pj Rendon DO Service: Anesthesiology Author [...] September 18, 2021 TIME: 8:58 AM CSN: [id number] NoteHNO ID: [id number] Author: Pj Renodn DO Service: Anesthesiology Author Type: Resident Type: Anesthesia Procedure Notes Filed: 09/18/2021 8:55 AM Note Text: ANESTHESIOLOGY PROCEDURE NOTE Airway General Information Procedure Start Time/Medication Administration: 09/18/2021 8:01 AM Patient location during procedure: OR Timeout Performed Pre-procedure: timeout performed Consent Obtained: Yes 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, care merchandising team lead and patient Staffing Anesthesiologist: Eliezer Lr MD [...] September 18, 2021 TIME: 8:54 AM CSN: [id number] NoteHNO ID: [id number] Author: Noel Grover DO Service: Anesthesiology Author Type: Anesthesiologist Type: Anesthesia Procedure Notes Filed: 09/18/2021 7:24 AM Note Text: ANESTHESIOLOGY PROCEDURE NOTE Peripheral Nerve Block General Information Procedure Start Time/Medication Administration: 09/18/2021 7:09 AM Procedure End time: 09/18/2021 7:14 AM Patient location during procedure: pre-op Timeout Performed Pre-procedure: timeout performed Consent Obtained: Yes 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, care merchandising team lead and patient Reason for block: post-op pain [...] September 18, 2021 TIME: 7:23 AM CSN: [id number] Instructions* Patient Instructions* Donald Huang MD - 09/14/2021 9:41 AM EDT OR scheduled Saturday, September 18, 2021. documented in this encounterKindred Healthcare04-29-2022 History of Present illness Narrative* Donald Huang [...] left majorfissure on a chest CT in [facility] in 09/2015. She was unaware that [...] patient's available diagnotic studies, including: PFT 09/11/21: [facility] [address] [place] [address] Test Date: 2021-09-11 Pat Name: SANDEE NULL Department: Room: Gender: Female Battery Checker: : 1990 Requested By: Order Number: [id number] Reading MD: Interpretive Statements ATS/ERS acceptability and repeatability standards for spirometry met. ATS/ERS acceptability and repeatability standards for DLCO met. DLCO is not hemoglobin corrected. //RK IMPRESSION: Site: ID: [id number] Name: SANDEE NULL Visit Date: 09/11/2021 Doctor: Battery Checker: Milvia Holliday Age: 31 Date of : [...] FEF75 (L/sec) 1.51 0.79 2.63 0.95 63 DGY10-24 (L/sec) 3.50 2.26 4.93 2.27 64 PEF [...] major fissure on a chest CT in [facility] in 09/2015. She was unaware that [...] have been signed and are in the [employer] EMR. The patient's operation is scheduled on [...] hesitate to contact me. documented in this encounterKind[facility]04-27-2022 History of Past illness Narrative* Problem Noted Date Resolved Date Former smoker 09/12/2021 09/12/2021 Bipolar 1 disorder 09/12/2021 09/12/2021 documented as of this encounter (statuses as of 09/12/2021) [facility] History of Past illness Narrative* Problem Noted Date Resolved Date Former smoker 09/12/2021 09/12/2021 Bipolar 1 disorder 09/12/2021 09/12/2021 documented as of this encounter (statuses as of 09/14/2021) [facility] History of Past illness Narrative* Problem Noted Date Resolved Date Former smoker 09/12/2021 09/12/2021 Bipolar 1 disorder 09/12/2021 09/12/2021 documented as of this encounter (statuses as of 09/19/2021) [place] [address]-27-2022 History of Past illness Narrative* Problem Noted Date Resolved Date Former smoker 09/12/2021 09/12/2021 Bipolar 1 disorder 09/12/2021 09/12/2021 documented as of this encounter (statuses as of 09/21/2021) [place] [address]-27-2022 History of Past illness Narrative* Problem Noted Date Resolved Date Former smoker 09/12/2021 09/12/2021 Bipolar 1 disorder 09/12/2021 09/12/2021 documented as of this encounter (statuses as of 09/22/2021) [place] [address]-27-2022 History of Past illness Narrative* Problem Noted Date Resolved Date Former smoker 09/12/2021 09/12/2021 Bipolar 1 disorder 09/12/2021 09/12/2021 documented as of this encounter (statuses as of 10/19/2021) [place] [address]-27-2022 History of Past illness Narrative* Problem Noted Date Diagnosed Date Resolved Date Former smoker 09/12/2021 09/12/2021 Bipolar 1 disorder 09/12/2021 documented as of this encounter (statuses as of 03/18/2023) [facility] Instructions* Patient Instructions* Geovanna Dickinson APRN.GRAPHIC ART SALES REPRESENTATIVE - 09/12/2021 12:36 PM EDT PATIENT PREOPERATIVE INSTRUCTIONS Dr Donald Huang has scheduled you for your procedure at this surgery center: [facility]: [phone] --[phone] [place] [address]. Please check in on the1st floor at [...] Procedures: - YOU MUST HAVE A RESPONSIBLE PRACTICING UROLOGIST TAKE YOU HOME. A FINANCIAL AGENT OR PULMONARY NURSE PRACTITIONER CANNOT BE MADE A RESPONSIBLE PRACTICING UROLOGIST. - We recommend that a responsible person [...] Advance Directive, please fax a copy to [phone] or email to for it to be [...] your chart that day. documented in this encounterKindred Healthcare04-27-2022 History and physical note * Geovanna Dickinson [...] famotidine (PEPCID) 10 mg tablet 20 mg. Xszpjqvu-Cw-Mwd-Fe-FA tab Take 1 tablet by mouth. promethazine (PHENERGAN) 12.5 mg tablet Take 12.5 mg by mouth three times daily as needed. tiotropium (SPIRIVA WITH HANDIHALER) 18 mcg inhalation capsule Inhale 1 capsule as instructed once daily. Use with HandiHaler. Medication Comments documented by Geovanna Dickinson APRN.GRAPHIC ART SALES REPRESENTATIVE on 09/12/2021 at 0909. Pepcid if normally [...] requiring medication, no history of angina, CHF, NC, cardiac surgery or stents. Denies rest pain, gangrene or revascularization/amputation for PVD. No history of cardiovascular symptoms or problems. GI: Positive for GERD, Negative for Abdominal pain, Difficulty swallowing, Liver disease : No history of dysuria, frequency or incontinence,, stones or chronic kidney disease FORMULA WEIGHER: Negative for abnormal vaginal bleeding, abnormal vaginal [...] 2021 TIME: 12:28 PM documented in this encounterKindred Healthcare04-26-2022 History of Present illness Narrative* Milvia Holliday RRT - 09/11/2021 2:42 PM EDT PULM FUNCTION SMARTBLOCK: Provider: Donald Huang MD Assisting Tech: Milvia Holliday RRT Spirometry: 1 DLCO: 1 System: [id number] documented in this encounterKindred Healthcare04-06-2022 NoteHNO ID: [id number] Author: Donald Huang MD Service: ? Author [...] major fissure on a chest CT in [facility] in 09/2015. She was unaware that [...] mg intramuscularly at bedtime as needed. - Muixxdrp-Pe-Jyl-Fe-FA tab Take 1 tablet by mouth. - [...] lower leg: No vincent (more content not included)...[facility] 08-22-2021 Instructions* Patient Instructions* Destiny Huang - 08/22/2021 9:38 AM EDT Please call us with how you would like to proceed. documented in this encounterKindred Healthcare04-06-2022 History of Present illness Narrative* Donald Huang [...] left majorfissure on a chest CT in [facility] in 09/2015. She was unaware that [...] 0.3 mg intramuscularly at bedtime as needed. Bbovcgog-Zh-Nnc-Fe-FA tab Take 1 tablet by mouth. promethazine [...] suspicious FDG avid osseous lesion. CT Chest 11/18/21: DATE OF EXAM: Apr 05 2021 11:52AM [facility] 0541 - CT CHEST WO IVCON [...] upper abdomen appear unremarkable. No adrenal mass. Seat Cover Installer (topogram) images: No additional findings. Spirometry 04/04/20: [facility] [address] [place] [address] Test Date: 2020-04-04 Pat Name: SANDEE NULL Department: Room: Gender: Female Battery Checker: Gypsy RazaEmilie : 1990 Requested By: Order Number: [id number] Reading MD: Tamar Sims MD Interpretive Statements [...] 103 89.0 FIVC L 4.23 4.32 2.0 QSW13-31% L/s 2.08 2.31 3.55 4.99 58.5 3.39 95.3 62.9 PKZ007% sec 12.32 9.33 -24.3 FETPEF sec 0.06 [...] reference values for spirometry are those of Seven (Martinez GLI 2012): Respiratory Journal 2012; 40: 6183-0827, 2012. Tech Comment: IMPRESSIONS: Sandee Null is a very pleasant 31-year old female who is a former 10+ pack year smoker and who has severe asthma. She was found to have a 4 mm left lower lobe lung nodule near the left major fissure on a chest CT in [facility] in 09/2015. She was unaware that [...] hesitate to contact me. documented in this encounterKindred Healthcare03-30-2022 Miscellaneous Notes* Telephone Encounter - Radha Vang MD - 08/15/2021 1:12 PM EDT Discussed with Ms. Null that IR does not think that this nodule is easily reachable by IR. Arnulfoill wants to a surgeon about possible excision of nodule. I will place a referral to thoracic surgery. documented in this encounterKindred Healthcare03-30-2022 Miscellaneous Notes* Telephone Encounter - Hannah Myers RN - 08/15/2021 9:[address] Vang paged to notify of lung biopsy request denial. Per Dr. Mena, Unable to get to it dueto location. Call back number and physician name provided in page. documented in this encounterKindred Healthcare03-28-2022 History of Present illness Narrative* Kalyn Phillips [...] radiation safety can be found usingthis link: [email or web address] SIGNATURE: BOLIVAR Rodriguez) PATIENT NAME: Sandee Null DATE: August 13, 2021 TIME: 10:23 AM PAGER/CONTACT #: [facility] Diagnosis Nodule of left lung- Primary Solitary pulmonary nodule documented in this encounter [facility] note* Diagnosis Lung nodule- Primary Solitary pulmonary nodule documented in this encounter [facility] note* Diagnosis Preoperative testing- Primary Preoperative examination, unspecified Lung nodule Solitary pulmonary nodule Lung nodule Solitary pulmonary nodule documented in this encounter [facility] note* Diagnosis Preoperative testing Preoperative examination, unspecified Lung nodule Solitary pulmonary nodule documented in this encounter [facility] note* Diagnosis Preoperative testing Preoperative examination, unspecified Lung nodule Solitary pulmonary nodule documented in this encounter [facility] note* Diagnosis Pre-op evaluation- Primary Preoperative examination, unspecified Lung nodule Solitary pulmonary nodule Migraine without status migrainosus, not intractable, unspecified migraine type Uncomplicated asthma, unspecified asthma severity, unspecified whether persistent Former smoker Personal history of tobacco use, presenting hazards to health Class 3 severe obesity due to excess calories without serious comorbidity with body mass index (BMI) of 50.0 to 59.9 in adult (HCC) BMI 50.0-59.9, adult (HCC) Body Mass Index 50.0-59.9, adult PTSD (post-traumatic stress disorder) Posttraumatic stress disorder Bipolar 1 disorder (HCC) Bipolar I disorder, most recent episode (or current) unspecified Smoker Tobacco use disorder Lung nodule Solitary pulmonary nodule documented in this encounter [facility] note* Diagnosis Lung nodule- Primary Solitary pulmonary nodule Lung nodule Solitary pulmonary nodule documented in this encounter [facility] note* Diagnosis Lung nodule- Primary Solitary pulmonary nodule [facility] Diagnosis Status post lung surgery- Primary Other postprocedural status documented in this encounter [facility] note* Diagnosis Acute post-operative pain- Primary [facility]* Diagnosis Acute post-operative pain [facility]* Diagnosis Left lower lobe pulmonary nodule- Primary [facility]* Diagnosis Primary malignant neoplasm (HCC) Other malignant neoplasm without specification of site [facility]* Diagnosis Onset Date Resolution Status Bipolar disorder acute Major depressive disorder ac eugenia Suicidal ideations [facility] Work Phone: Evaluation note* Diagnosis Lung nodules- Primary Other nonspecific abnormal finding of lung field Moderate persistent asthma without complication Unspecified asthma BMI 50.0-59.9, adult ([facility]) Body Mass Index 50.0-59.9, adult Patient non adherence Personal history of noncompliance with medical treatment, presenting hazards to health Nodule of left lung Solitary pulmonary nodule 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9, adult PTSD (post-traumatic stress disorder) Posttraumatic stress disorder Bipolar 1 disorder (HCC) Bipolar I disorder, most recent episode (or current) unspecified Smoker Tobacco use disorder Screening for cervical cancer- Primary Screening for malignant neoplasm of the cervix [facility] Diagnosis Pre-op evaluation- Primary Preoperative examination, unspecified Lung nodule Solitary pulmonary nodule Migraine without status migrainosus, not intractable, unspecified migraine type Uncomplicated asthma, unspecified asthma severity, unspecified whether persistent Former smoker Personal history of tobacco use, presenting hazards to health Class 3 severe obesity due to excess calories without serious comorbidity with body mass index (BMI) of 50.0 to 59.9 in adult (HCC) BMI 50.0-59.9, adult (HCC) Body Mass Index 50.0-59.9, adult PTSD (post-traumatic stress disorder) Posttraumatic stress disorder Bipolar 1 disorder (HCC) Bipolar I disorder, most recent episode (or current) unspecified Smoker Tobacco use disorder Screening for malignant neoplasm of cervix- Primary Screening for malignant neoplasm of the cervix documented in this encounter [facility] general Narrative - Reported* Type Description Date Medical History asthma Medical History PTSD Medical History depression Medical History anxiety Hospitalization History dehydration Hospitalization History child Can'tWait Other Reason for referral (narrative)* Outpatient Procedure (Routine) - Pending Review Specialty Diagnoses / Procedures Referred By Contac t Referred To Contact [facility] Diagnoses Preoperative testing Procedures ECG COMPLETE ECG ROUTINE ECG W/LEAST 12 LDS W/I&[place] [address] [place] [address] [facility] [place] [address] [place] [address] Referral ID Status Reason Start Date Expiration Date Visits Requested Visits Authorized [id number] Pending Review Auto-Generat ed Referral 09/11/2021 08/28/2022 1 1 * Outpatient Procedure (Routine) - Pending Review Specialty Diagnoses / Procedures Referred By Contac t Referred To [facility] Diagnoses Preoperative testing Procedures SPIROMETRY BASELINE ONLY SPMTRY W/VC EXPIRATORY AYAKA W/[place] [address] [place] [address] [facility] [place] [address] [place] [address] Referral ID Status Reason Start Date Expiration Date Visits Requested Visits Authorized [id number] Pending Review Auto-Generat ed Referral 08/28/2021 09/27/2022 1 1 * Outpatient Procedure (Routine) - Pending Review Specialty Diagnoses / Procedures Referred By Contac t Referred To [facility] Diagnoses Preoperative testing Procedures LUNG DIFFUSION CAPACITY (DLCO) [place] [address] [place] [address] [facility] [place] [address] [place] [address] Referral ID Status Reason Start Date Expiration Date Visits Requested Visits Authorized [id number] Pending Review Auto-Generat ed Referral 08/28/2021 09/27/2022 1 1 [facility] for referral (narrative)* Diagnostic Procedure Only (Routine) - Closed Specialty Diagnoses / Procedures Referred By Contac t Referred To Contact [facility] Diagnoses Primary malignant neoplasm (HCC) Procedures NM PET/CT SKULL-THIGH INITIAL TUMOR IMAGING PET W/[place] [address] [place] [address] [facility] [address] [place] [address] Referral ID Status Reason Start Date Expiration Date V isits Requested Visits Authorized [id number] Closed Auto-Generate d Referral 04/06/2021 10/01/2021 2 2 [facility] for visit Narrative* Diagnostic Procedure Only (Routine) - Closed Specialty Diagnoses / Procedures Referred By Ruel schmitt Referred To Contact [facility] Diagnoses Primary malignant neoplasm (HCC) Procedures NM PET/CT SKULL-THIGH INITIAL TUMOR IMAGING PET W/[place] [address] [place] [address] [facility] [address] [place] [address] Referral ID Status Reason Start Date Expiration Date V isits Requested Visits Authorized [id number] Closed Auto-Generate d Referral 04/06/2021 10/01/2021 2 2 [facility] Summary Purpose Family History No Family History Records FoundNo Family History Records FoundNo Family History Records FoundNo Family History Records FoundNo Family History Records FoundNo Family History Records FoundNo Family History Records FoundNo Family History Records FoundNo Family History Records FoundNo Family History Records Found Advance Directives No Advanced Directives Records FoundDocuments on File Type Date Recorded Patient Safe Technician Expl anation Advance Directive(s) 07/24/2019 10:21 PM Documents on File Type Date Recorded Patient Safe Technician Expl anation Advance Directive(s) 07/24/2019 10:21 PM Documents on File Type Date Recorded Patient Safe Technician Expl anation Advance Directive(s) 08/31/2021 4:56 PM [...] Directives No September 12, 2 018 11:56am Date Activated Date Inactivated Comments 09/18/2021 1:00 PM 09/19/2021 6:37 PM Question Answer Comments Full Code Order Discussed With: Patient Reason for Referral Specialty Diagnoses / Procedures Referred By Contac t Referred To Contact Diagnoses Nodule of left lung Procedures CONSULT [place] [address] [place] [address] Referral ID Status Reason Start Date Expiration Date Visits Requested Visits Authorized [id number] Ref Not Required PCP Requested Referral 08/15/2021 08/15/2022 1 1 Specialty Diagnoses / Procedures Referred By Contac t Referred To Contact Radha Vang MD [address] [place] [address] Referral ID Status Reason Start Date Expiration Date Visits Re quested Visits Authorized [id number] Closed 1 1 Specialty Diagnoses / Procedures Referred By Contac t Referred To Contact CT IMAGING Diagnoses Lung nodules Procedures CT CHEST WO IVCON DIAGNOSTIC COMPUTED TOMOGRAPHY THORAX W/[place] CNTRST [place] Vang [place] [id number] [place] [address] [facility] [place] [address] Referral ID Status Reason Start Date Expiration Date Visits Requested Visits Authorized [id number] Authorized Auto-Generat ed Referral 3 04/16/2024 1 1 Chief Complaint and Reason for Visit Chief Complaint Suicidal Ideation Reason for Visit Bipolar disorder Major depressive disorder Suicidal ideations Additional Source Comments INFORMATION SOURCE (unrecogn ized section and content) DATE CREATED AUTHOR 11/11/2017 [facility] DATE CREATED AUTHOR AUTHOR'S ORGANIZ ATION 11/11/2017 [facility] DATE CREATED AUTHOR AUTHOR'S ORGANIZ ATION 04/14/2020 [facility] DATE CREATED AUTHOR AUTHOR'S ORGANIZ ATION 04/22/2020 [facility] DATE CREATED AUTHOR AUTHOR'S ORGANIZ ATION 08/16/2021 [facility] DATE CREATED AUTHOR AUTHOR'S ORGANIZ ATION 09/22/2021 [facility] DATE CREATED AUTHOR AUTHOR'S ORGANIZ ATION 09/24/2021 [facility] DATE CREATED AUTHOR AUTHOR'S ORGANIZ ATION 02/14/2024 [facility] DATE CREATED AUTHOR AUTHOR'S ORGANIZ ATION 02/14/2024 [facility] DATE CREATED AUTHOR AUTHOR'S ORGANIZ ATION 04/12/2024 [facility] Source Comments (unrecognize d section and content) In the event this informatio n is protected by the Federal Confidentiality of Alcohol and Drug Abuse Patient Records regulations: The Federal rules restrict any use of the information to criminally investigate or prosecute any alcohol or drug abuse patient.[facility] the event this information is protected by the Federal Confidentiality of Alcohol and Drug Abuse Patient Records regulations: The Federal rules restrict any use of the information to criminally investigate or prosecute any alcohol or drug abuse patient.[facility] the event this information is protected by the Federal Confidentiality of Alcohol and Drug Abuse Patient Records regulations: The Federal rules restrict any use of the information to criminally investigate or prosecute any alcohol or drug abuse patient.[facility] the event this information is protected by the Federal Confidentiality of Alcohol and Drug Abuse Patient Records regulations: The Federal rules restrict any use of the information to criminally investigate or prosecute any alcohol or drug abuse patient.[facility] Healthcare[facility] the event this information is protected by the Federal Confidentiality of Alcohol and Drug Abuse Patient Records regulations: The Federal rules restrict any use of the information to criminally investigate or prosecute any alcohol or drug abuse patient.[facility] the event this information is protected by the Federal Confidentiality of Alcohol and Drug Abuse Patient Records regulations: The Federal rules restrict any use of the information to criminally investigate or prosecute any alcohol or drug abuse patient.[facility] Healthcare[facility] the event this information is protected by the Federal Confidentiality of Alcohol and Drug Abuse Patient Records regulations: The Federal rules restrict any use of the information to criminally investigate or prosecute any alcohol or drug abuse patient.[facility] Healthcare[facility] the event this information is protected by the Federal Confidentiality of Alcohol and Drug Abuse Patient Records regulations: The Federal rules restrict any use of the information to criminally investigate or prosecute any alcohol or drug abuse patient.[facility] Healthcare[facility] the event this information is protected by the Federal Confidentiality of Alcohol and Drug Abuse Patient Records regulations: The Federal rules restrict any use of the information to criminally investigate or prosecute any alcohol or drug abuse patient.[facility] Healthcare[facility] the event this information is protected by the Federal Confidentiality of Alcohol and Drug Abuse Patient Records regulations: The Federal rules restrict any use of the information to criminally investigate or prosecute any alcohol or drug abuse patient.[facility] Healthcare[facility] the event this information is protected by the Federal Confidentiality of Alcohol and Drug Abuse Patient Records regulations: The Federal rules restrict any use of the information to criminally investigate or prosecute any alcohol or drug abuse patient.[facility] Healthcare[facility] the event this information is protected by the Federal Confidentiality of Alcohol and Drug Abuse Patient Records regulations: The Federal rules restrict any use of the information to criminally investigate or prosecute any alcohol or drug abuse patient.[facility] Healthcare[facility] the event this information is protected by the Federal Confidentiality of Alcohol and Drug Abuse Patient Records regulations: The Federal rules restrict any use of the information to criminally investigate or prosecute any alcohol or drug abuse patient.[facility] HealthcareIn the event this information is protected by the Federal Confidentiality of Alcohol and Drug Abuse Patient Records regulations: The Federal rules restrict any use of the information to criminally investigate or prosecute any alcohol or drug abuse patient.[facility] HealthcareIn the event this information is protected by the Federal Confidentiality of Alcohol and Drug Abuse Patient Records regulations: The Federal rules restrict any use of the information to criminally investigate or prosecute any alcohol or drug abuse patient.[facility] HealthcareIn the event this information is protected by the Federal Confidentiality of Alcohol and Drug Abuse Patient Records regulations: The Federal rules restrict any use of the information to criminally investigate or prosecute any alcohol or drug abuse patient.[facility] HealthcareIn the event this information is protected by the Federal Confidentiality of Alcohol and Drug Abuse Patient Records regulations: The Federal rules restrict any use of the information to criminally investigate or prosecute any alcohol or drug abuse patient.[facility] HealthcareIn the event this information is protected by the Federal Confidentiality of Alcohol and Drug Abuse Patient Records regulations: The Federal rules restrict any use of the information to criminally investigate or prosecute any alcohol or drug abuse patient.[facility] HealthcareIn the event this information is protected by the Federal Confidentiality of Alcohol and Drug Abuse Patient Records regulations: The Federal rules restrict any use of the information to criminally investigate or prosecute any alcohol or drug abuse patient.[facility] HealthcareIn the event this information is protected by the Federal Confidentiality of Alcohol and Drug Abuse Patient Records regulations: The Federal rules restrict any use of the information to criminally investigate or prosecute any alcohol or drug abuse patient.[facility] Reason for Visit (unrecogniz ed section and content) Reason Comments Patient Update Reason Comments Results Reason Comments New Patient Reason Comments Spirometry Specialty Diagnoses / Procedures Referred By Contac t Referred To Contact [facility] Diagnoses Preoperative testing Procedures SPIROMETRY BASELINE ONLY SPMTRY W/VC EXPIRATORY AYAKA W/[place] [address] [place] [address] [facility] [place] [address] [place] [address] Referral ID Status Reason Start Date Expiration Date V isits Requested Visits Authorized [id number] Closed Auto-Generate d Referral 08/28/2021 09/27/2022 1 1 Specialty Diagnoses / Procedures Referred By Contac t Referred To Contact [facility] Diagnoses Preoperative testing Procedures LUNG DIFFUSION CAPACITY (DLCO) [place] [address] [place] [address] [facility] [place] [address] [place] [address] Referral ID Status Reason Start Date Expiration Date V isits Requested Visits Authorized [id number] Closed Auto-Generate d Referral 08/28/2021 09/27/2022 1 [...] PET W/CONC [place] Vang [place] [id number] [place] [address] [facility] [address] [place] [address] Referral ID Status Reason Start Date Expiration Date V isits Requested Visits Authorized [id number] Closed Auto-Generate d Referral 04/06/2021 10/01/2021 2 2 Reason Comments Asthma Reason Onset Date Comments Community Outreach 03/26/2024 [employer] Care Teams (unrecognized sec tion and content) Bioinformaticist Relationship Specialty Start Date [place] [id number] [place] [address] Referring Pulmonary and Critical Care Medicine 08/15/21 Bioinformaticist Relationship Specialty [place] [address] [place] [address] Referring Pulmonary and Critical Care Medicine 08/15/21 Bioinformaticist Relationship Specialty Start Date End Date Radha Vang [place] [id number] [place] [address] Referring Pulmonary and Critical Care Medicine 08/15/21 Bioinformaticist Relationship Specialty Start Date End Date Qasim Daley MD [address] [place] [address] PCP - General Internal Medicine 08/31/21 [place] [address] [place] [address] Referring Pulmonary and Critical Care Medicine 08/15/21 Bioinformaticist Relationship Specialty Start Date End Date Qasim Daley MD [address] [place] [address] PCP - General Internal Medicine 08/31/21 [place] [address] [place] [address] Referring Pulmonary and Critical Care Medicine 08/15/21 Bioinformaticist Relationship Specialty Start Date End Date Qasim Daley MD [address] [place] [address] PCP - General Internal Medicine 08/31/21 [place] [address] [place] [address] Referring Pulmonary and Critical Care Medicine 08/15/21 Bioinformaticist Relationship Specialty Start Date End Date Qasim Daley MD [address] [place] [address] PCP - General Internal Medicine 08/31/21 [place] [address] [place] [address] Referring Pulmonary and Critical Care Medicine 08/15/21 Bioinformaticist Relationship Specialty Start Date End Date Qasim Daley MD [address] [place] [address] PCP - General Internal Medicine 08/31/21 [place] [address] [place] [address] Referring Pulmonary and Critical Care Medicine 08/15/21 Bioinformaticist Relationship Specialty Start Date End Date Qasim Daley MD [address] [place] [address] PCP - General Internal Medicine 08/31/21 [place] [address] [place] [address] Referring Pulmonary and Critical Care Medicine 08/15/21 Bioinformaticist Relationship Specialty Start Date End Date Qasim Daley MD [address] [place] [address] PCP - General Internal Medicine 08/31/21 [place] [address] [place] [address] Referring Pulmonary and Critical Care Medicine 08/15/21 Bioinformaticist Relationship Specialty Start Date End Date Qasim Daley MD [address] [place] [address] PCP - General Internal Medicine 08/31/21 [place] [address] [place] [address] Referring Pulmonary and Critical Care Medicine 08/15/21 Team Status: Active Member Role Status Dates PHYSICIAN NO FAMILY Primary Care Provider Active Team Status: Inactive Member Role Status Dates PHYSICIAN NO FAMILY Primary Care Provider Active Jus Santos MD Admit Provider, Attending Provider Active Bioinformaticist Relationship Specialty Start [place] [address] [place] [address] PCP - General Internal Medicine 08/31/21 [place] [address] [place] [address] Referring Pulmonary and Critical Care Medicine 08/15/21 Bioinformaticist Relationship Specialty Start [place] [address] [place] [address] PCP - General Internal Medicine 08/31/21 [place] [address] [place] [address] Referring Pulmonary and Critical Care Medicine 08/15/21 Bioinformaticist Relationship Specialty Start [place] [address] [place] [id number] PCP - General Internal Medicine 08/31/21 [place] [address] [place] [address] Referring Pulmonary and Critical Care Medicine 08/15/21 Bioinformaticist Relationship Specialty Start [place] [address] [place] [id number] PCP - General Internal Medicine 08/31/21 [place] [address] [place] [address] Referring Pulmonary and Critical Care Medicine 08/15/21 [...] BE BASED ON THE PRIMARY CLINICAL RECORDS. [employer] [facility]. provides no warranty or guarantee of the accuracy or completeness of information in this document.
--- NOTE | 2024-05-14 02:57 | PC.NURSE ---
complains of rash to right upper chest, both arms onset 3 night ago. this patient has taken OTC and rash got better but tonight came back to night. this patient voices no other complaints and patient shows no visible or audible signs of distress
--- NOTE | 2024-05-14 03:03 | ED_ITS ---
HPI HPI - General Adult General Chief complaint: Skin/Abscess/Foreign Body Stated complaint: SOB, SKIN IRRITATION Time Seen by Provider: 05/14/24 02:51 Source: patient Mode of arrival: walk-in Limitations: no limitations History of Present Illness HPI narrative: Patient is a 34-year-old female who is presenting to the ER today with chief complaint of intermittent rash/urticaria for the past 2 to 3 days. Patient does not know what she could have been exposed to. Multiple food, drinks, chemicals, animals, or any type of exposure patient could have had was discussed. Patient is uncertain of the exposure. Patient is not having any significant difficulty breathing. No angioedema. Patient states the urticaria and hives are coming and going the past several days. Patient has been taking Zyrtec. Patient has no chest pain or shortness of breath tonight, no abdominal pain nausea vomiting. No diarrhea. No other acute complaints. No fever or chills. Patient's heart rate was elevated when she initially arrived, in the 120s, to 110s, to 130s and then back to the 110s. Patient states she has a normal resting heart rate that is tachycardic and this is very normal for her, she is not concerned about her heart rate and does not want any further testing for this. Patient states her last menses was in March, and there is no way that she is does not want to be tested for and is not concerned about the medication that is prescribed secondary to potential . Patient has no other acute complaints at this time. All systems are negative except as noted/marked. All systems reviewed and otherwise negative. Nurses note and vital signs reviewed and patient is not hypoxic. Mauri BERG was at bedside during the entire HPI and physical exam. Patient was in the gown wearing bra and underwear the entire time. General: The patient appears well and in no apparent distress. Patient is resting comfortably on cart. Patient is not toxic, lethargic, or listless Skin: Warm, dry, no pallor noted. There is no rash noted. No petechiae, purpura. Patient has diffuse sizes of various wheals and urticaria to her arms, neck, upper back, and a large area of patches/urticaria/wheals to the right upper chest above her right breast. Patient states her nipples and areola not involved. Patient states the rash is not invading any mucous membrane. Patient has it somewhat in the abdomen, and lower back. Patient denies any rash around her genitals, , or anus. Patient has no rash to the palms or soles. Nothing in her mouth. Patient has no mucous membrane involvement of her rash. All of her patches/wheals are blanching. Head: Normocephalic, atraumatic Eye: Normal conjunctiva, no drainage, EOMI. PERRL Ears, Nose, Mouth, and Throat: oral mucosa is moist. Nares patent. Mouth without vesicles. Cardiovascular: Regular Rate and Rhythm, no murmur, gallop, rub Respiratory: Patient is in no distress, no accessory muscle use, lungs are izabela ar to auscultation, no wheezing, rales or rhonchi Back: non-tender, no CVA tenderness bilaterally to percussion. No CT LS midline pain GI: Obese, no tenderness to palpation, no masses appreciated. No rebound, guarding, or rigidity noted. No distention Musculoskeletal: Patient has full range of motion of all of the extremities, no motor, sensory, or focal neurological deficits Neurological: A&O x4, normal speech. No difficulty with speech. Psychiatric: Cooperative Related Data Previous Rx's ?Medication ?Instructions ?Recorded budesonide 0.5 mg/2 mL suspension 0.5 mg (2 mL) inhalation BID 15 03/16/24 for nebulization days #60 mL budesonide-formoterol HFA 160 2 inh inhalation BID 30 days #10.2 03/16/24 mcg-4.5 mcg/actuation aerosol grams inhaler (Symbicort) Allergies Allergy/AdvReac Type Severity Reaction Status Date / Time latex Allergy Unknown Verified 05/14/24 02:47 metronidazole (From Flagyl) Allergy Unknown Verified 05/14/24 02:47 levofloxacin AdvReac Unknown Verified 05/14/24 02:47 vancomycin AdvReac Unknown Verified 05/14/24 02:47 Opioid HPI Opioid Management Most Recent Opioid Data: Last Pain Scale 5 03/15/24 16:15 03/15/24 Last ORT Total Score 2 03/13/24 02:23 03/13/24 Last ORT Risk Category Low Risk 03/13/24 02:23 03/13/24 Ur Phencyclidine Scrn Negative (NEGATIVE) 03/10/23 00:02 02/17 08/08 [facility] Medical History (Updated 05/14/24 @ 03:02 by Melvin Thompson MD) Asthma ?J45.909 - Unspecified asthma, uncomplicated (ICD-10) Surgical History History of lobectomy of lung ?Z90.2 - Acquired absence of lung [part of] (ICD-10) Family History Other Family history not known due to adoption Social History Within the past year, how often did you have a drink containing alcohol: never Score interpretation: A score less than 3 is consistent with normal alcohol consumption. Smoking status: Current every day smoker Non-prescribed substance use: denies use Previous occupational history: unemployed Highest level of school completed/degree received: some college, no degree Are you now , , , , never or living with a partner: never In a typical week, how many times do you talk on the telephone with family, friends, or neighbors: 3 or more times per week How often do you get together with friends or relatives: 3 or more times per week Little interest or pleasure in doing things: not at all Feeling down, depressed, or hopeless: not at all Feel stressed/tense/nervous/anxious/difficulty sleeping: not at all Do you think of yourself as: straight/heterosexual Gender Identity: female Exam Constitutional Vital Signs, click to edit/add: Last Vital Signs Temp 98.6 F 05/14/24 02:42 Pulse 120 H 05/14/24 02:42 Resp 16 05/14/24 02:42 BP 143/88 H 05/14/24 02:42 Pulse Ox 95 05/14/24 02:42 O2 Del Method Room Air 05/14/24 02:55 Course Vital Signs Vital signs: Vital Signs Temperature 98.6 F 05/14/24 02:42 Pulse Rate 120 H 05/14/24 02:42 Respiratory Rate 16 05/14/24 02:42 Blood Pressure 143/88 H 05/14/24 02:42 Pulse Oximetry 95 05/14/24 02:42 Oxygen Delivery Method Room Air 05/14/24 02:42 Temperature 98.6 F 05/14/24 02:42 Pulse Rate 120 H 05/14/24 02:42 Respiratory Rate 16 05/14/24 02:42 Blood Pressure 143/88 H 05/14/24 02:42 Pulse Oximetry 95 05/14/24 02:42 Oxygen Delivery Method Room Air 05/14/24 02:55 Medical Decision Making MDM Narrative Medical decision making narrative: Patient has no mucous membrane involvement of her rash/urticaria. Patient did take Zyrtec at midnight. Patient states the wheals/urticaria have been coming and going for the past 2 or 3 days. Patient has no known exposure to anything that could be causing allergic reaction. Patient states that she has Vistaril 50 mg tablets at home for anxiety, she will take 1 of those when she goes home help with itching and burning of the rash. Patient was given Pepcid. Patient was educated she could do Pepcid twice a day along with Zyrtec or Claritin in the morning and Benadryl at nighttime. Patient was given prednisone in the ER, she is given a prescription for prednisone as well to help with rebound effect. Patient states that she normally has a resting heart rate that is tachycardic, she is aware of her heart rates in the ER, they were discussed by myself with patient, patient wants no additional testing for her tachycardia the rate is in the low 100s. Patient was given prescriptions of prednisone. Patient was dujj-ljx-kwalsaa antihistamines and Pepcid. Patient will use her Vistaril pczi-meb-teaawbk. No question at discharge. No airway compromise, patient stated she drove 20 to 30 minutes here from [place] to be seen. Discharge Plan Discharge Chief Complaint: Skin/Abscess/Foreign Body Clinical Impression: Allergic reaction, Rash and nonspecific skin eruption Patient Disposition: Home, Self-Care Time of Disposition Decision: 03:03 Condition: Fair Prescriptions / Home Meds: No Action budesonide 0.5 mg/2 mL Suspension For Nebulization 0.5 mg inhalation BID 15 Days Qty: 60 0RF budesonide-formoterol [Symbicort] 160-4.5 mcg/actuation HFA aerosol inhaler 2 inh inhalation BID 30 Days Qty: 10.2 0RF Print Language: Hong Konger Instructions: Contact Dermatitis (ED), Acute Rash (ED), General Allergic Reaction (ED), Cold Compress or Soak (ED), Allergy Testing (ED) Additional Instructions: Continue using Claritin or Zyrtec during the day, Benadryl at nighttime vizu-lnd-exrnfku medication to help with allergic reaction and itching. Use Pepcid 20 mg awls-tdr-plkqhkc twice a day for the next 7 days to help with allergic reaction, itching and rash. Take your next dose of prednisone on Friday Take 50 mg of Vistaril when you get home of your own medication that you do have to help with itching and burning and rash. Follow-up with PCP if no improvement in the next 2 or 3 days. Use ice 20 minutes on, 20 minutes off to areas of swelling and rash to help with inflammation. He stated that you have a normal heart resting rate in the low 110s-120s, continue to follow-up with your PCP or wood window and door craftsman for further testing as indicated. Referrals: [facility] [Primary Care Provider] - 1 week
[2024-05-14] MEDS: FAMOTIDINE 20 MG TABLET PO (03:08)
[2024-05-14] MEDS: PREDNISONE 20 MG TABLET 40 MG PO (03:19)
--- NOTE | 2024-05-14 03:27 | PC.NURSE ---
i gave this patient verbal and paper discharge orders and she voices yes to understanding these. at time of discharge orders this patient voices no concerns and shows no signs of distress
== END 2024-05-14 03:29 | disposition home or self-care (01) ==
PROVIDERS: Emergency Provider Emergency Medicine
DX: R21 Rash and other nonspecific skin eruption (principal); T78.40XA Allergy, unspecified, initial encounter; Z90.2 Acquired absence of lung [part of]; F17.200 Nicotine dependence, unspecified, uncomplicated
CPT/HCPCS: 99282; J7512

== ENCOUNTER 2025-02-13 13:17 | Emergency (ER) | payer MEDICAID, SELFPAY ==
--- OUTSIDE RECORDS SUMMARY | 2023-12-22 06:45 | XMS_ITS ---
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 Name Role Phone Joselyn Vincent Primary Care Provider [phone] Doris Sow Unavailable [phone] Wiliam Kearney Unavailable [phone] REASON FOR VISIT Wellness Social History Sex Assigned At : Social History Observation Description Sex Assigned At Female Encounters Encounter Location Date Provider Diagnosis [place] [address] [place] [address] 12/22/2023 Wiliam Kearney Plan Of Treatment No Information Progress Notes * CHAKA SandeeDOB:[birth year] (35 yo F)Acc No.[id number]:12/22/2023 Medical Note Patient: Sandee FRAUSTO Provider: CHRISTINE Dockery :1990 A ge:33 Y S ex:Female Date:12/22/2023 Address:[address] [facility] Pcp:Joselyn Vincent Subjective: * Chief Complaints: * 1 . Wellness. * Medical History: Objective: * Vitals: Assessment: Plan: * Treatment: * Billing Information: * Visit Code: * Procedure Codes: * Electronic signature of Isaac Kearney NP on 02/13/2025 at 01:42 PM EDT Sign off status: Pending * Provider: CHRISTINE Dockery Date: 0 12/22/2023 Generated for Hector govea/Cassi/Zain on: 0 02/13/2025 01:42 PM EDT
--- OUTSIDE RECORDS SUMMARY | 2024-03-18 07:00 | XMS_ITS ---
Author Organization [facility] vices Address [address] [place], [place] [id number] Care Team Providers Care Site Planner Name Role Phone Joselyn Vincent Primary Care Provider Leslie Sowwicho Unavailable [phone] REASON FOR VISIT hosp f/u d/c 03/16 [facility] Social History Sex Assigned At : Social History Observation Description Sex Assigned At Female Encounters Encounter Location Date Provider Diagnosis Main [address] [place], [place] [id number] 03/18/2024 Joselyn Vincent Plan Of Treatment No Information Progress Notes * Sandee NULLDOB:[birth year] (35 yo F)Acc No.[id number]:03/18/2024 Medical Note Patient: Sandee FRAUSTO Provider: Yunior Vincent MD :1990 A ge:34 Y S ex:Female Date:03/18/2024 Address:[id number] Subjective: * Chief Complaints: * 1 . hosp f/u d/c 03/16 [facility]. * Medical History: Objective: * Vitals: Assessment: Plan: * Treatment: * Billing Information: * Visit Code: * Procedure Codes: * Electronic signature of Jens Vincent MD on 02/13/2025 at 01:43 PM EDT Sign off status: Pending * Provider: Yunior Vincent MD Date: Generated for Hector govea/Cassi/Zain on: 0 02/13/2025 01:43 PM EDT
--- OUTSIDE RECORDS SUMMARY | 2024-10-19 14:13 | XMS_ITS ---
Author Organization OHIP Care Team Providers Care Equipment Operator Wage Hand Name Role Phone YASMIN BAEZ Attending Unavailable FATIMAH FIGUEROA [facility], [facility] Primary Care Unava ilable Purpose PROBLEMS DATE TYPE CONDITION / CODE ATTENDING STATUS [facility] 02/06/2019 Unknown Unspecified asth ma with (acute) exacerbation / J45.901(ICD-10) NA [facility] 10/19/2024 Unknown Dermatitis, unsp ecified / L30.9(ICD-10) NA [facility] 10/19/2024 Unknown Rash / FREETEXT(AOF) NA [facility] 10/19/2024 Unknown Rash / UNK(Unknown) [facility] PROCEDURES No Procedure Records Found VITAL SIGNS No Vital Signs Records Found RESULTS PROGRESS Observed: 04/09/2024 12:30 PM Status: COMPLETED Source: [facility] HNO ID: [id number] Author: MOUNA ARTHUR MA Service: ? Author Type: Bunch Maker Hand Type: Progress Notes Filed: 04/09/2024 12:32 Note Text: [facility] Provider Action/FYI Pap/HPV screening completed at the [facility] screening event on 03/26/2024. Pap Results: Interpretation Negative for intraepithelial lesion or malignancy. HPV Results: High Risk HPV Type 16 DNA Not detected High Risk HPV Type 18 DNA Not detected High Risk HPV Other Type DNA Not detected Patient notified of results. Mouna Arthur MA PROGRESS Observed: 03/27/2024 7:14 PM Status: COMPLETED Source: [facility] HNO ID: [id number] Author: YASMIN BAEZ APRN.RESPIRATORY SUPPORT TECHNICIAN Service: ? Author Type: Nurse Practitioner Type: Progress Notes Filed: 03/27/2024 19:15 Note Text: Specimen was collected by a licensed professional volunteer provider. The sensitive examination was discussed with the Patient or Patient's Authorized Naturalization Examiner. As applicable, any other physician, advance practice provider, medical student, or other health professional student that will be observing or involved in the sensitive examination for educational or training purposes was discussed with the Patient or Authorized Naturalization Examiner. The Patient or Authorized Naturalization Examiner has agreed to proceed with the sensitive examination. (Sensitive examination includes inspection and/or palpation of the breasts, pelvis, prostate and anorectal regions) Patient was seen for cervical cancer screening. [facility] at [facility] on March 26 2024. Yasmin Baez APRN.RESPIRATORY SUPPORT TECHNICIAN PAP TEST Collected: 3:39 PM Status: F Source: [facility] Order Comment: Specimen Type : FLUID SPECIMEN Ordering Facility: [facility] Address: [address] [place] [address] TYPE CODE TESTS RESULT OUT OF RANGE REFERENCE UNITS PATHOLOGY [id number] CASE REPORT Result Comment: Gynecologic Cytology Report Case: [id number] Authorizing Provider: Yasmin Baez APRN.RESPIRATORY SUPPORT TECHNICIAN Collected: 03/26/2024 03:39 PM Ordering Location: [facility] Received: 03/26/2024 05:42 PM First Screen: Alis Miller CT ASCP Specimen: Pap Test, ThinPrep, Cervix PATHOLOGY [id number] ADEQUACY Satisfactory for interpretation. PATHOLOGY [id number] INTERPRETATIO N, CYTOLOGY, RESERVOIR ENGINEERING MANAGER Result Comment: Negative for intraepithelial lesion or malignancy. OLOGY [id number] CLINICAL HISTORY, CYTOLOGY, RESERVOIR ENGINEERING MANAGER Routine Exam PATHOLOGY [id number] LMP 03/13/2024 PATHOLOGY PAPDC PAP DISCLAIMER COMMENT The Pap Smear is a screening test for cervical cancer. False negative results occur with all screening tests, emphasizing the need for rescreening at recommended intervals, and clinical correlation. PATHOLOGY PAPIC PAP ROSE GRADER COMMENT This specimen has been analyzed by the [employer] System, an automated imaging and review system, which assists the laboratory in evaluating cells on ThinPrep Pap tests. Following automated imaging, selected roach from every slide are reviewed by a cytotechnologis tEmilie PATHOLOGY [facility] Result Comment: Technical co mponent, metal trim erector screening performed at [facility], [address] [place] [address] CLIA# [id number] Diagnostic interpretation performed at [facility], [address] [place] [address] CLIA# [id number] Shear Assembler: Tyler Simon M.D. Performed By: #### [id number] # ### [facility] CLIA [id number] [address] [place] [address] OF [place] HIGH RISK HUMAN PAPILLOMA VIRUS (HPV), PCR FOR DETECTION AND GENOTYPING Collected: 03/26/2024 3:39 PM Status: F Source: [facility] Order Comment: Specimen Type : FLUID SPECIMEN Ordering Facility: [facility] Address: [address] [place] [address] TYPE CODE TESTS RESULT OUT OF RANGE REFERENCE UNITS LAB 12305-0(LOINC) HPV16 Ag Spec Ql Not detected Not detected LAB 62720-3(LOINC) HPV18 Ag Spec Ql Not detected Not detected LAB 96698-7(LOINC) HPV HR 12 DNA Cvx Ql SULLY+probe Not detected Not detected Result Comment: High Risk HP V Other Type includes HPV types 31, 33, 35, 39, 45, 51, 52, 56, 58, 59, 66 and 68. Performed By: #### HPVHRT ## ## [facility] CLIA [id number] [address] [place] [address] [place] CNOV Observed: 03/26/2024 9:20 AM Status: COMPLETED Source: [facility] Office Visit ([facility]) ZHANE BRAGG ([id number]) 1990 F Date Time Provider Department 11/8/24 9:20 AM YASMIN BAEZ During your visit today, we recorded the following information about you: Yasmin Baez APRN.CNP 03/27/2024 7:15 PM Signed Specimen was collected by a licensed professional volunteer provider. The sensitive examination was discussed with the Patient or Patient's Authorized Naturalization Examiner. As applicable, any other physician, advance practice provider, medical student, or other health professional student that will be observing or involved in the sensitive examination for educational or training purposes was discussed with the Patient or Authorized Naturalization Examiner. The Patient or Authorized Naturalization Examiner has agreed to proceed with the sensitive examination. (Sensitive examination includes inspection and/or palpation of the breasts, pelvis, prostate and anorectal regions) Patient was seen for cervical cancer screening. [facility] at [facility] on March 26 2024. Yasmin Baez APRN.CNP [...] Encounter Status:Closed by YASMIN BAEZ on 03/27/24 JONATOCARINA Observed: 03/26/2024 12:00 AM Status: COMPLETED Source: [facility] Patient Outreach ([facility]) ZHANE BRAGG ([id number]) 1990 F Date Time Provider Department 03/26/24 MOUNA ARTHUR During your visit today, we recorded the following information about you: Mouna Arthur MA 04/09/2024 12:32 PM Signed [facility] Provider Action/FYI Pap/HPV screening completed at the [facility] screening event on 03/26/2024. Pap Results: Interpretation [...] Reason for Visit: [facility] [Other] Cmt: [facility] Prescriptions as of 04/09/2024 - citalopram hydrobromide [...] Encounter Status:Closed by MOUNA ARTHUR on 04/09/24 ALLERGIES DATE TYPE / CODE NAME / CODE REACTION SEVERITY SOURCE 03/09/2022 DRUG INGREDI/4195 83383(SNOMED CT) VANCOMYCIN [facility] 10/19/2021 DRUG/8688533 03(SNOMED CT) ADHESIVE TAPE-SILICONES Rash Low [facility] 10/19/2021 DRUG/2210344 03(SNOMED CT) ADHESIVE TAPE-SILICONES OTHER: SEE C [facility] 10/19/2021 DRUG INGREDI/4195 27189(SNOMED CT) VANCOMYCIN HIVES [facility] 04/04/2020 DRUG INGREDI/4195 34072(SNOMED CT) LEVOFLOXACIN GI Disturbance [facility] 04/04/2020 DRUG INGREDI/4195 44746(SNOMED CT) LEVOFLOXACIN OTHER: SEE C [facility] 05/05/2017 DRUG INGREDI/4195 37816(SNOMED CT) LATEX [facility] 03/02/2017 DRUG INGREDI/4195 30719(SNOMED CT) METRONIDAZOLE [facility] 01/19/2017 DRUG INGREDI/4195 88451(SNOMED CT) LATEX RASH [facility] 12/02/2014 DRUG INGREDI/4195 20585(SNOMED CT) METRONIDAZOLE Vomiting [facility] ENCOUNTERS ADMIT/DISCHARGE ACCOUNT NUMBER ADMITTING ENCOUNTER CLASS LOCATION SOURCE 10/19/2024/ 5 [id number] Emergency Building:[facility]_ EDRoom: 12Bed: [address] [facility] 03/26/2024/ 4 [id number] [facility] FUNCTIONAL STATUS No Functional Status Records Found EQUIPMENT No Equipment Records Found PAYERS ENCOUNTER GUARANTOR PAYER SUBSCRIBER SOURCE 03/26/2024 Primary Insurance:[place]: [id number] Date:[id number] Name:Cary STORY: [id number] [place] [address] [facility] SOCIAL HISTORY No Social History Records Found FAMILY HISTORY No Family History Records Found ADVANCE DIRECTIVES No Advanced Directives Records Found INFORMATION SOURCE DATE CREATED AUTHOR AUTHOR'S KVNG GRAFF 02/13/2025 RODRIGO
[2025-02-13 13:20] VITALS: BP 161/112; PULSE 98; TEMP 37.4; O2SAT 97; BMI 53.1
--- NOTE | 2025-02-13 13:38 | ED.GENADUL1 ---
HPI HPI - General Adult General Chief complaint: Upper Respiratory Infection Stated complaint: URTI COMPLAINTS Time Seen by Provider: 02/13/25 13:24 Source: patient Mode of arrival: walk-in Limitations: no limitations History of Present Illness HPI narrative: 35-year-old female presented to the emergency department for nasal drainage. She has been sick for several days and earlier this month had an upper respiratory infection. She went to an urgent care 2 days ago and they put her on Augmentin and prednisone and albuterol. She is complaining of left ear pain and she is worried she has a ruptured TM. She never had any bleeding or trauma. She also complains of copious nasal drainage from the left side of her nose. No blood in it. Related Data Home Medications ?Medication ?Instructions ?Recorded ?Confirmed albuterol sulfate 90 mcg/actuation 2 puff inhalation Q4H PRN 02/13/25 02/13/25 aerosol inhaler shortness of breath or wheezing amoxicillin 875 mg-potassium 1 tab PO BID 02/13/25 02/13/25 clavulanate 125 mg tablet prednisone 20 mg tablet 40 mg PO DAILY 02/13/25 02/13/25 Previous Rx's ?Medication ?Instructions ?Recorded fluticasone propionate 50 1 spray intranasal BID #16 grams 02/13/25 mcg/actuation nasal spray,suspension (Flonase Allergy Relief) loratadine 5 mg-pseudoephedrine ER 1 tab PO Q12H PRN nasal congestion 02/13/25 120 mg tablet,extended #20 tabs release,12hr (Claritin-D 12 Hour) Allergies Allergy/AdvReac Type Severity Reaction Status Date / Time latex Allergy Unknown Verified 02/13/25 13:20 metronidazole (From Flagyl) Allergy Unknown Verified 02/13/25 13:20 levofloxacin AdvReac Unknown Verified 02/13/25 13:20 vancomycin AdvReac Unknown Verified 02/13/25 13:20 Opioid HPI Opioid Management Most Recent Opioid Data: Last Pain Scale 5 Today, 13:20 Last ORT Total Score 2 03/13/24, 02:23 Last ORT Risk Category Low Risk 03/13/24, 02:23 Ur Phencyclidine Scrn, (NEGATIVE) Negative 03/10/23, 00:02 Review of Systems ROS Narrative A ten point review of systems is negative except as noted above. PFSH PFS Medical History (Updated 02/13/25 @ 13:36 by Krunal Márquez MD) Asthma ?J45.909 - Unspecified asthma, uncomplicated (ICD-10) Surgical History History of lobectomy of lung ?Z90.2 - Acquired absence of lung [part of] (ICD-10) Family History Other Family history not known due to adoption Social History Within the past year, how often did you have a drink containing alcohol: never Score interpretation: A score less than 3 is consistent with normal alcohol consumption. Smoking status: Current every day smoker Non-prescribed substance use: denies use Previous occupational history: unemployed Highest level of school completed/degree received: some college, no degree Are you now , , , , never or living with a partner: never In a typical week, how many times do you talk on the telephone with family, friends, or neighbors: 3 or more times per week How often do you get together with friends or relatives: 3 or more times per week Little interest or pleasure in doing things: not at all Feeling down, depressed, or hopeless: not at all Feel stressed/tense/nervous/anxious/difficulty sleeping: not at all Do you think of yourself as: straight/heterosexual Gender Identity: female Exam Narrative Exam Narrative: Nurses note and vital signs reviewed and patient is not hypoxic. General:The patient appears in no apparent distress.Patient is resting comfortably on cart. Skin:Warm, dry, no pallor noted.There is no rash noted. Head:Normocephalic, atraumatic Eye: Normal conjunctiva, no drainage Ears, Nose, Mouth, and Throat: oral mucosa is moist. Nares patent. Left side of her nose has some inflammation. No foreign body or bleeding present. Right side appears normal. Both TMs and both external canals are normal in appearance. Cardiovascular:Regular Rate and Rhythm Respiratory:Patient is in no distress, no accessory muscle use, diffuse rhonchi present Back:non-tender GI: Soft and nontender Musculoskeletal: No joint swelling Neurological:A&O, normal speech Psychiatric:Cooperative Constitutional Vital Signs, click to edit/add: Last Vital Signs Temp 99.3 F 02/13/25 13:20 Pulse 98 H 02/13/25 13:20 Resp 20 02/13/25 13:20 BP 161/112 H 02/13/25 13:20 Pulse Ox 97 02/13/25 13:20 O2 Del Method Room Air 02/13/25 13:20 Course Vital Signs Vital signs: Vital Signs Temperature 99.3 F 02/13/25 13:20 Pulse Rate 98 H 02/13/25 13:20 Respiratory Rate 20 02/13/25 13:20 Blood Pressure 161/112 H 02/13/25 13:20 Pulse Oximetry 97 02/13/25 13:20 Oxygen Delivery Method Room Air 02/13/25 13:20 Temperature 99.3 F 02/13/25 13:20 Pulse Rate 98 H 02/13/25 13:20 Respiratory Rate 20 02/13/25 13:20 Blood Pressure 161/112 H 02/13/25 13:20 Pulse Oximetry 97 02/13/25 13:20 Oxygen Delivery Method Room Air 02/13/25 13:20 Medical Decision Making MDM Narrative Medical decision making narrative: The patient appears to have sinusitis. She does not have a ruptured TM or otitis media or otitis externa. She will continue her Augmentin and prednisone but was also placed on Claritin-D and Flonase. Treatment diagnosis and follow-up were discussed with the patient. Differential Diagnosis Differential Diagnosis: Otitis media, otitis externa, sinusitis Discharge Plan Discharge Chief Complaint: Upper Respiratory Infection Clinical Impression: Sinusitis Patient Disposition: Home, Self-Care Time of Disposition Decision: 13:36 Condition: Good Mode of Transportation: Private Vehicle Prescriptions / Home Meds: New Claritin-D 12 Hour 5-120 mg tablet extended release 12 hr 1 tab PO Q12H PRN (Reason: nasal congestion) Qty: 20 0RF fluticasone propionate [Flonase Allergy Relief] 50 mcg/actuation spray,suspension 1 spray intranasal BID Qty: 16 0RF Rx Instructions: administer into each nostril No Action amoxicillin-pot clavulanate 875-125 mg tablet 1 tab PO BID albuterol sulfate 90 mcg/actuation HFA aerosol inhaler 2 puff INHALATION Q4H PRN (Reason: shortness of breath or wheezing) prednisone 20 mg tablet 40 mg PO DAILY Print Language: [place] Instructions: Sinusitis (ED) Referrals: [facility] [Primary Care Provider, Unknown] - 1 week
--- OUTSIDE RECORDS SUMMARY | 2025-02-13 13:41 | XMS_ITS | Encounter Summary ---
Author Organization [facility] tem Address [id number] [address] [place] [address] Care Team Providers Care Electron Beam Welder Name Role Phone Services, [facility] Primary Care Provider Encounter Details Date Type Department Care Team (Late st Contact Info) Description 03/27/2020 Orders Only Maternal- Medicine at [facility] [address] [place] [id number] External, Scanning Provider Social History Tobacco Use Types Packs/Day Years Used Date Smoking Tobacco: Every Day Cigarettes 0.5 12 Smokeless Tobacco: Never Alcohol Use Standard Drinks/Week Comments No 0 (1 standard drink = 0.6 oz pur e alcohol) Childcare Answer Date Recorded Childcare Unknown 10/19/2018 Employment Answer Date Recorded Employment Unknown 10/19/2018 Comments Yes Sex and Gender Information Value Date Recorded Sex Assigned at Not on file Legal Sex Female 9:16 PM EST Gender Identity Not on file Sexual Orientation Not on file COVID-19 Exposure Response Date Recorded In the last month, have you been in contact with someone who was confirmed or suspected to have Coronavirus / COVID-19? No / Unsure 03/24/2020 9:58 PM EST documented as of this encounter Plan of Treatment Not on file documented as of this encounter Goals Goal Patient Goal Type Associated Problems Recent Progress Patient-Stated? Author pt will d/c home General Yes Razia Lopez, RN Note: Evaluation of progress towards goal: Patient goal is to D/C home. documented as of this encounter Procedures Procedure Name Priority Date/Time Associated Diagnosis Comments US PREG LMTD 1 OR MORE FETUS Routine 02/01/2020 documented in this encounter Results * Ultrasound limited 1 or more fetus (02/01/2020) Anatomical Region Laterality Modality OB-FITNESS STUDIES TEACHER Ultrasound Narrative 02/01/2020 See attached report us Scanning Provider External IMG US ORDERABLES Chase edmond Result - Final documented in this encounter Visit Diagnoses Not on filedocumented in this encounter Additional Health Concerns Infection Onset Date Last Indicated Resolved Time COVID-19 Rule-Out 06/15/2021 06/15/2021 06/15/2021 10:56 PM EST COVID-19 Positive 06/15/2021 06/15/2021 07/06/2021 11:12 PM EST COVID-19 Rule-Out 01/21/2023 01/21/2023 01/21/2023 11:03 PM EDT COVID-19 Rule-Out 04/23/2023 04/23/2023 04/23/2023 8:11 PM EST COVID-19 Rule-Out 02/13/2024 02/13/2024 02/13/2024 4:08 PM EDT documented as of this encounter Care Teams Electron Beam Welder Relationship Specialty Start Date End Date Services, [facility] [address] [place], [place] PCP - General Family Medicine 11/05/23 documented as of this encounter
--- OUTSIDE RECORDS SUMMARY | 2025-02-13 13:41 | XMS_ITS | Encounter Summary ---
Author Organization [facility] Address [address] [place] [address] Care Team Providers Care Telecommunications Network Engineer Name Role Phone Kasia Vang MD Unavailable Qasim Hinojosa MD Primary Care Provider + Source Comments In the event this information is protected by the Federal Confidentiality of Alcohol and Drug AbusePatient Records regulations: The Federal rules restrict any use of the information to criminally investigate or prosecute any alcohol or drug abuse patient.[facility] Encounter Details Date Type Department Care Team (Late st Contact Info) Description 04/21/2020 Patient Msg Pulmonary Medicine [address] [address] [place] [address] [place] [address] Social History Tobacco Use Types Packs/Day Years Used Date Smoking Tobacco: Former Cigarettes Q uit: 12/03/2019 Smokeless Tobacco: Never Comments Unknown Sex and Gender Information Value Date Recorded Sex Assigned at Female 04/04/2020 8:47 AM EST Legal Sex Female 5:46 PM EST Gender Identity Female 04/04/2020 8:47 AM EST Sexual Orientation Choose not to disclose 2019 8:47 AM EST COVID-19 Exposure Response Date Recorded In the last month, have you been in contact with someone who was confirmed or suspected to have Coronavirus / COVID-19? No / Unsure 04/04/2020 9:26 AM EST documented as of this encounter Plan of Treatment Not on file documented as of this encounter Visit Diagnoses Not on filedocumented in this encounter Care Teams Telecommunications Network Engineer Relationship Specialty Start [place] [address] [place] [address] PCP - General Internal Medicine 08/31/21 [place] [address] [place] [address] Referring Pulmonary and Critical Care Medicine 08/15/21 documented as of this encounter
--- OUTSIDE RECORDS SUMMARY | 2025-02-13 13:43 | XMS_ITS | Encounter Summary ---
Author Organization [employer] [facility] Address [facility] [id number] [address] [place] [address] Care Team Providers Care Waste Cotton Cleaner Name Role Phone [facility], [facility] Primary Care Provider Encounter Details Date Type Department Care Team (Late st Contact Info) Description 01/01/2021 [facility] [address] [place] [address] Ref Prov, [place] [address] Social History Tobacco Use Types Packs/Day Years Used Date Smoking Tobacco: Every Day Cigarettes 0.5 12 Smokeless Tobacco: Never Alcohol Use Standard Drinks/Week Comments No 0 (1 standard drink = 0.6 oz pur e alcohol) Childcare Answer Date Recorded Childcare Unknown 10/19/2018 Employment Answer Date Recorded Employment Unknown 10/19/2018 Purpose - Life Answer Date Recorded Purpose and direction in life Unknown Comments No Sex and Gender Information Value Date Recorded Sex Assigned at Not on file Legal Sex Female 9:16 PM EST Gender Identity Not on file Sexual Orientation Not on file documented as of this encounter Plan of Treatment Not on file documented as of this encounter Goals Goal Patient Goal Type Associated Problems Recent Progress Patient-Stated? Author pt will d/c home General Yes Razia Lopez, RN Note: Evaluation of progress towards goal: Patient goal is to D/C home. documented as of this encounter Procedures Procedure Name Priority Date/Time Associated Diagnosis Comments EMG WITH NCV Routine 01/01/2021 documented in this encounter Results * EMG With NCV (01/01/2021) us Not In System Ref Prov NEUROLOGY ORDERABLES Parul l Result MANUALLY TRANSCRIBED RESULTS documented in this encounter Visit Diagnoses Not [...] documented as of this encounter Care Teams Waste Cotton Cleaner Relationship Specialty Start Date End Date Services, [facility] [address] [place], [place] PCP - General Family Medicine 11/05/23 documented as of this encounter
--- OUTSIDE RECORDS SUMMARY | 2025-02-13 13:43 | XMS_ITS | Clinical Summary ---
Author Organization [employer] [facility] Address [id number] [address] [place] [address] Care Team Providers Care It Technical Support Specialist Name Role Phone Services, [facility] Primary Care Provider Allergies Active Allergy Reactions Criticality Noted Date Comments Adhesive Tape-Silicones Rash Low 10/19/2021 Blisters, peeling skin Metronidazole 03/02/2017 Latex 05/05/2017 Levofloxacin GI Disturbance 04/04/2020 tendenitis Vancomycin 03/09/2022 Medications benzonatate (TESSALON PERLES) 100 mg capsule Take 1 capsule (100 mg total) by mouth 3 (three) times a day as needed for cough. 20 capsule 4 Active ipratropium-alb uteroL (DUONEB) 0.5 mg-3 mg(2.5 mg base)/3 mL nebulizerIndica tions:Exacerbat ion of asthma, unspecified asthma severity, unspecified whether persistent Inhale 3 mL by nebulization in the morning and 3 mL at noon and 3 mL in the evening and 3 mL before bedtime. 360 mL 4 Active clobetasoL (TEMOVATE) 0.05 % cream Apply 1 Application topically in the morning and 1 Application before bedtime. 30 g 5 Active albuterol (PROVENTIL,VENT LEX) 2.5 mg /3 mL (0.083 %) nebulizer solutionIndicat ions:Exacerbati on of asthma, unspecified asthma severity, unspecified whether persistent Inhale 3 mL (2.5 mg total) by nebulization every 6 (six) hours as needed for wheezing. 75 mL 5 Active Active Problems Problem Noted Date Diagnosed Date Exacerbation of intermittent asthma, unspecified asthma severity 02/13/2024 Pelvic pain 06/24/2023 Moderate persistent asthma with exacerbation Hypokalemia 03/01/2023 Migraines 09/12/2021 Overview (03/01/2023): Last Assessment & Plan: Assessment: managed with OTC medication, stable Lung nodule 08/22/2021 Overview (03/01/2023): Last Assessment & Plan: Assessment: see HPI PTSD (post-traumatic stress disorder) 03/27/2020 Bipolar disorder 03/27/2020 Other chest pain 05/31/2019 Allergic rhinitis 04/13/2019 Asthma exacerbation 02/06/2019 Cough 02/06/2019 Leukocytosis 02/06/2019 Rhinovirus infection 02/06/2019 Tachycardia 02/06/2019 Morbid obesity 02/06/2019 Current smoker 02/06/2019 Nicotine dependence, cigarettes, uncomplicated 0 02/06/2019 Sinusitis 09/30/2018 Asthma Resolved Problems Problem Noted Date Diagnosed Date Resolved Date Chronic tonsillitis 09/30/2018 02/07/20 19 Chronic nasal congestion 09/30/2018 Immunizations Immunization Administration Dates Next Due COVID-19, mRNA, LNP-S, PF, 100mcg/0.5mL Dose 06/2020,07/21/2020 Influenza, Injectable, quadrivalent (PF) 019,06/12/2015 Measles / Rubella 06/12/2015 Family History * Patient is adopted Medical History Relation Name Comments Alcohol abuse Father Depression Father Drug abuse Father Alcohol abuse Mother Bipolar disorder Mother Depression Mother Drug abuse Mother Relation Name Status Comments Father Mother Social History Tobacco Use Types Packs/Day Years Used Date Smoking Tobacco: Every Day Cigarettes 0.5 16 Smokeless Tobacco: Never Tobacco Cessation:Ready to Q uit: Not Asked; Counseling Given: Not Answered Alcohol Use Standard Drinks/Week Comments No 0 (1 standard drink = 0.6 oz pur e alcohol) [facility] Utilities Answer Date Recorded In the past 12 months has th e electric, gas, oil, or water company threatened to shut off services in your home? No 02/13/2024 PRAPARE - Transportation Answer Date Re corded In the past 12 months, has l ack of transportation kept you from medical appointments or from getting medications? No 01/18 In the past 12 months, has l ack of transportation kept you from meetings, work, or from getting things needed for daily living? No 02/13/2024 Housing Instability Answer Date Recorde d Are you worried or concerned that in the next two months you may not have stable housing that you own, rent or stay in as a part of a household? No 02/13/2024 Childcare Answer Date Recorded Childcare Unknown 10/19/2018 Employment Answer Date Recorded Employment Unknown 10/19/2018 Hunger Screening Answer Date Recorded Within the past 12 months we worried whether our food would run out before we got money to buy more. Never True 10/19/2024 Within the past 12 months th e food we bought just didn't last and we didn't have money to get more. Never True 10/19/2024 Purpose - Life Answer Date Recorded Purpose and direction in life Unknown Comments No Sex and Gender Information Value Date Recorded Sex Assigned at Not on file Legal Sex Female 9:16 PM EST Gender Identity Not on file Sexual Orientation Not on file Last Filed Vital Signs Vital Sign Reading Time Taken Comments Blood Pressure 155/105 10/19/2024 1:01 PM EDT Pulse 100 10/19/2024 3:00 PM EDT Temperature 37.1 C (98.7 F) 10/19/2024 1:01 PM EDT Respiratory Rate 20 10/19/2024 3:00 PM EDT Oxygen Saturation 98% 10/19/2024 3:00 PM EDT Inhaled Oxygen Concentration - - Weight 127 kg (280 lb) 10/19/2024 1:01 PM EDT Height 162.6 cm (5' 4 ) 10/19/2024 1:01 PM EDT Body Mass Index 48.06 10/19/2024 1:01 PM EDT Plan of Treatment Health Maintenance Due Date Last Done Comments Tobacco Counseling 1992 Depression Screening 2004 Adult BMI Follow Up Plan 02/03/2010 COVID-19 Vaccine (4 - 2024-2 6 season) 2025 05/31/2021, 08/18/2020, 07/21/2020 Influenza Vaccine 01/17/2025 03/11/2023, , 06/12/2015 Adult BMI Screening 10/19/2025 10/19/2024 Tobacco Screening 10/19/2025 10/19/2024 Pap Smear 03/26/2027 03/26/2024 DTaP,Tdap and Td Vaccines (6 - Td or Tdap) 10/09/2030 10/09/2020, 08/11/1996, 01/26/1996, Additional history exists Goals Goal Patient Goal Type Associated Problems Recent Progress Patient-Stated? Author pt will d/c home General Yes Razia Lopez, RN Note: Evaluation of progress towards goal: Patient goal is to D/C home. Medical Devices Not on file Advance Directives * Full Code (Latest Code Status on File) Date Activated Date Inactivated Comments 02/13/2024 5:53 PM 02/14/2024 3:59 PM * Full Code Date Activated Date Inactivated Comments 03/01/2023 7:37 AM 03/02/2023 1:29 PM * Full Code Date Activated Date Inactivated Comments 02/06/2019 2:27 AM 02/09/2019 9:26 PM Care Teams It Technical Support Specialist Relationship Specialty Start Date End Date [facility], [address] [place], [place] PCP - General Family Medicine 11/05/23
--- OUTSIDE RECORDS SUMMARY | 2025-02-13 13:43 | XMS_ITS | Encounter Summary ---
Author Organization [facility] Address [address] [place] [address] Care Team Providers Care Paper Coating Machine Operator Name Role Phone Kasia Vang MD Unavailable Qasim Hinojosa MD Primary Care Provider + Source Comments In the event this information is protected by the Federal Confidentiality of Alcohol and Drug AbusePatient Records regulations: The Federal rules restrict any use of the information to criminally investigate or prosecute any alcohol or drug abuse patient.[facility] Encounter Details Date Type Department Care Team (Late st Contact Info) Description 07/10/2021 Get Medical Advice Pulmonary Medicine [address] [address] [place] [address] [place] [address] Covid-19 Social History Tobacco Use Types Packs/Day Years Used Date Smoking Tobacco: Former Cigarettes Q uit: 12/03/2019 Smokeless Tobacco: Never Area Deprivation Index Answer Date Espinoza rded National Score (1-100), lower number is lower ri sk Not on file 04/28/2020 State Score (1-10), lower number is lower risk N ot on file 04/28/2020 Data from: https://www.neighborhoodatlas.medicine.[facility].edu/. Last address used for calculation Not on file 04/28/2020 Comments Unknown Sex and Gender Information Value Date Recorded Sex Assigned at Female 04/04/2020 8:47 AM EST Legal Sex Female 5:46 PM EST Gender Identity Female 04/04/2020 8:47 AM EST Sexual Orientation Choose not to disclose 2019 8:47 AM EST documented as of this encounter Miscellaneous Notes * Telephone Encounter - Kasia Vang MD - 07/11/2021 12:58 PM EST I called and left a message telling her that she should go to the ED or urgent care. documented in this encounter Plan of Treatment Not on file documented as of this encounter Visit Diagnoses Not on filedocumented in this encounter Care Teams Paper Coating Machine Operator Relationship Specialty Start [place] [address] [place] [address] PCP - General Internal Medicine 08/31/21 [place] [address] [place] [address] Referring Pulmonary and Critical Care Medicine 08/15/21 documented as of this encounter
--- OUTSIDE RECORDS SUMMARY | 2025-02-13 13:43 | XMS_ITS | Encounter Summary ---
Author Organization [employer] [facility] Address [id number] [address] [place] [address] Care Team Providers Care Cylinder Honer Name Role Phone Services, [facility] Primary Care Provider Reason for Visit * Reason Comments Med Change Request Encounter Details Date Type Department Care Team (Late st Contact Info) Description 01/05/2024 Refill [facility] Pulmonary/Sleep Medicine [address] [place] [address] Sandra Everett, AUTOMATIC STACKER-REFRIGERATION INSTALLER [facility] [place] [id number] Social History Tobacco Use Types Packs/Day Years [...] got money to buy more. Never True 11/13/2023 Within the past 12 months th e food we bought just didn't last and we didn't have money to get more. Never True 11/13/2023 Purpose - Life Answer Date Recorded Purpose and direction in life Unknown Comments No Sex and Gender Information Value Date Recorded Sex Assigned at Not on file Legal Sex Female 9:16 PM EST Gender Identity Not on file Sexual Orientation Not on file documented as of this encounter Miscellaneous Notes * Telephone Encounter - MAYNOR Bae - 01/05/2024 8:30 AM EDT No longer under providers care documented in this encounter Plan of Treatment Not on file documented as of this encounter Goals Goal Patient Goal Type Associated Problems Recent Progress Patient-Stated? Author pt will d/c home General Yes Razia Lopez, RN Note: Evaluation of progress towards goal: Patient goal is to D/C home. documented as of this encounter Visit Diagnoses Not on filedocumented in this encounter Additional Health Concerns Infection Onset Date Last Indicated Resolved Time COVID-19 Rule-Out 02/13/2024 02/13/2024 02/13/2024 4:08 PM EDT documented as of this encounter Care Teams Cylinder Honer Relationship Specialty Start Date End Date Services, [facility] [address] [place], [place] PCP - General Family Medicine 11/05/23 documented as of this encounter
--- OUTSIDE RECORDS SUMMARY | 2025-02-13 13:43 | XMS_ITS | Encounter Summary ---
Author Organization [facility] Address [address] [place] [address] Care Team Providers Care Message And Delivery Service Pricer Name Role Phone Kasia Vang MD Unavailable Qasim Hinojosa MD Primary Care Provider + Source Comments In the event this information is protected by the Federal Confidentiality of Alcohol and Drug AbusePatient Records regulations: The Federal rules restrict any use of the information to criminally investigate or prosecute any alcohol or drug abuse patient.[facility] Encounter Details Date Type Department Care Team (Late st Contact Info) Description 04/24/2022 Patient Msg MRI J [address] [place], [place] [id number] Provider, Ccf Final scheduling attempt for imaging exam Social History Tobacco Use Types Packs/Day Years Used Date Smoking Tobacco: Every Day Cigarettes 1 15 Smokeless Tobacco: Never Alcohol Use Standard Drinks/Week Comments Not Currently 0 (1 standard drink = 0.6 oz pur e alcohol) Area Deprivation Index Answer Date Espinoza rded National Score (1-100), lower number is lower ri sk 84 10/19/2021 State Score (1-10), lower number is lower risk N ot on file 10/19/2021 Data from: https://www.neighborhoodatlas.[facility]/. Last address used for calculation [address] 10/19/2021 Comments No Sex and Gender Information Value Date Recorded Sex Assigned at Female 04/04/2020 8:47 AM EST Legal Sex Female 5:46 PM EST Gender Identity Female 04/04/2020 8:47 AM EST Sexual Orientation Choose not to disclose 2019 8:47 AM EST documented as of this encounter Functional Status * Are you deaf or do you have serious difficulty hearing? Answer Date of Assessment Author No 09/19/2021 3:00 PM EDT Mary Clark APRN.SALVAGE MECHANIC * Are you blind or do you have serious difficulty seeing, even when wearing glasses? Answer Date of Assessment Author No 09/19/2021 3:00 PM EDT Mary Clark APRN.SALVAGE MECHANIC * Do you have serious difficulty walking or climbing stairs? Answer Date of Assessment Author No 09/19/2021 3:00 PM EDT Mary Clark APRN.SALVAGE MECHANIC * Do you have difficulty dressing or bathing? Answer Date of Assessment Author No 09/19/2021 3:00 PM EDT Mary Clark APRN.SALVAGE MECHANIC * Because of a physical, mental, or emotional condition, do you have difficulty doing errands alone such as visiting a doctor's office or shopping? Answer Date of Assessment Author No 09/19/2021 3:00 PM EDT Mary Clark APRN.SALVAGE MECHANIC documented as of this encounter Mental Status * Because of a physical, mental, or emotional condition, do you have serious difficulty concentrating, remembering, or making decisions? Answer Entry Date Author No 09/19/2021 3:00 PM EDT Mary Clark APRN.SALVAGE MECHANIC documented in this encounter Plan of Treatment Not on file documented as of this encounter Visit Diagnoses Not on filedocumented in this encounter Care Teams Message And Delivery Service Pricer Relationship Specialty Start [place] [address] [place] [address] PCP - General Internal Medicine 08/31/21 [place] [address] [place], [place] [id number] Referring Pulmonary and Critical Care Medicine 08/15/21 documented as of this encounter
--- OUTSIDE RECORDS SUMMARY | 2025-02-13 13:43 | XMS_ITS | Encounter Summary ---
Author Organization [facility] Address [address] [place] [address] Care Team Providers Care Etl Architect Name Role Phone Kasia Vang MD Unavailable Qasim Hinojosa MD Primary Care Provider + Source Comments In the event this information is protected by the Federal Confidentiality of Alcohol and Drug AbusePatient Records regulations: The Federal rules restrict any use of the information to criminally investigate or prosecute any alcohol or drug abuse patient.[facility] Encounter Details Date Type Department Care Team (Late st Contact Info) Description 08/15/2021 Get Medical Advice Pulmonary Medicine [address] [address] [place] [address] [place] [address] Appointment 4/5 Social History Tobacco Use Types Packs/Day Years Used Date Smoking Tobacco: Former Cigarettes Q uit: 12/03/2019 Smokeless Tobacco: Never Area Deprivation Index Answer Date Espinoza rded National Score (1-100), lower number is lower ri sk Not on file 04/28/2020 State Score (1-10), lower number is lower risk N ot on file 04/28/2020 Data from: https://www.neighborhoodatlas.medicine.[facility].edu/. Last address used for calculation Not on [...] on filedocumented in this encounter Care Teams Etl Architect Relationship Specialty Start [place] [address] [place] [address] PCP - General Internal Medicine 08/31/21 [place] [address] [place] [address] Referring Pulmonary and Critical Care Medicine 08/15/21 documented as of this encounter
--- OUTSIDE RECORDS SUMMARY | 2025-02-13 13:43 | XMS_ITS | Encounter Summary ---
Author Organization [facility] Address [address] [place] [address] Care Team Providers Care Director Veterinary Name Role Phone Kasia Vang MD Unavailable Qasim Hinojosa MD Primary Care Provider + Source Comments In the event this information is protected by the Federal Confidentiality of Alcohol and Drug AbusePatient Records regulations: The Federal rules restrict any use of the information to criminally investigate or prosecute any alcohol or drug abuse patient.[facility] Encounter Details Date Type Department Care Team (Late st Contact Info) Description 06/22/2021 Get Medical Advice Pulmonary Medicine [address] [address] [place] [address] [place] [address] PET Scan Social History Tobacco Use Types Packs/Day Years Used Date Smoking Tobacco: Former Cigarettes Q uit: 12/03/2019 Smokeless Tobacco: Never Area Deprivation Index Answer Date Espinoza rded National Score (1-100), lower number is lower ri sk Not on file 04/28/2020 State Score (1-10), lower number is lower risk N ot on file 04/28/2020 Data from: https://www.neighborhoodatlas.medicine.[facility].edu/. Last address used for calculation Not on file 04/28/2020 Comments Unknown Sex and Gender Information Value Date Recorded Sex Assigned at Female 04/04/2020 8:47 AM EST Legal Sex Female 5:46 PM EST Gender Identity Female 04/04/2020 8:47 AM EST Sexual Orientation Choose not to disclose 2019 8:47 AM EST documented as of this encounter Miscellaneous Notes * Telephone Encounter - Jody Baeza - 06/26/2021 2:45 PM EST Left VM with phone number to call and schedule Pet Scan as we can not schedule these. documented in this encounter Plan of Treatment Not on file documented as of this encounter Visit Diagnoses Not on filedocumented in this encounter Care Teams Director Veterinary Relationship Specialty Start [place] [address] [place] [address] PCP - General Internal Medicine 08/31/21 [place] [address] [place] [address] Referring Pulmonary and Critical Care Medicine 08/15/21 documented as of this encounter
--- OUTSIDE RECORDS SUMMARY | 2025-02-13 13:43 | XMS_ITS | Clinical Summary ---
Author Organization [facility] Address [address] [place] [address] Care Team Providers Care Winterizer Name Role Phone Unavailable Primary Care Provider Unavailabl e Social History Tobacco Use Types Packs/Day Years Used Date Smoking Tobacco: Never Assessed Comments Unknown Sex and Gender Information Value Date Recorded Sex Assigned at Not on file Legal Sex Female 6:35 PM EDT Gender Identity Not on file Sexual Orientation Not on file Last Filed Vital Signs Vital Sign Reading Time Taken Comments Blood Pressure 113/73 09/16/2017 12:00 PM EDT Pulse - - Temperature - - Respiratory Rate - - Oxygen Saturation - - Inhaled Oxygen Concentration - - Weight 125 kg (275 lb) 09/16/2017 12:00 PM EDT Height 160 cm (5' 3 ) 09/16/2017 12:00 PM EDT Body Mass Index 48.71 09/16/2017 12:00 PM EDT Plan of Treatment Not on file
--- OUTSIDE RECORDS SUMMARY | 2025-02-13 13:43 | XMS_ITS | Clinical Summary ---
Author Organization [facility] Address [address] [place] [address] Care Team Providers Care X Ray Physician Name Role Phone Kasia Vang MD Unavailable Qasim Hinojosa MD Primary Care Provider + Allergies Active Allergy Reactions Criticality Noted Date Comments Adhesive Tape-Silicones Other: See Comments 07/2021 Blisters, peeling skin Latex Rash 01/19/2017 Levofloxacin Other: See Comments 04/04/2020 tendenitis Metronidazole Vomiting 12/02/2014 Vancomycin Hives 10/19/2021 Medications * This document contains information received from the source organization and may not represent a complete record from that organization. citalopram hydrobromide (CELEXA) 10 mg tablet TAKE 1 TABLET BY MOUTH EVERY DAY IN THE MORNING FOR 15 DAYS 03/12/20 23 Active lamoTRIgine (LAMICTAL) 25 mg tablet TAKE 1 TABLET BY MOUTH EVERY DAY FOR 15 DAYS 03/12/20 23 Active hydrOXYzine pamoate (VISTARIL) 50 mg capsule TAKE 1 CAPSULE BY MOUTH EVERY 6 HOURS NEEDED FOR ANXIETY FOR 15 DAYS 03/12/20 23 Active traZODone (DESYREL) 50 mg tablet TAKE 1 TABLET BY MOUTH EVERY DAY AT BEDTIME NEEDED FOR INSOMNIA FOR 15 DAYS 03/12/20 23 Active ARIPiprazole monohydrate (ABILIFY MAINTENA) 400 mg sers injection as directed Intramuscular Once a month for 30 days 09/24/19 23 Active albuterol HFA (PROVENTIL HFA, VENTOLIN HFA) 90 mcg/actuation inhaler Inhale 2 Puffs as instructed every 6 hours as needed for wheezing/shortnes s of breath. 1 Each 3 03/18/20 Active ipratropium-albu terol (DUONEB) 0.5 mg-3 mg(2.5 mg base)/3 mL nebu Inhale 3 mL as instructed every 6 hours as needed for wheezing/shortnes s of breath. 270 mL 3 03/18/20 Active budesonide-formo terol (SYMBICORT) 160-4.5 mcg/actuation inhaler Inhale 2 Puffs as instructed two times a day. 11 g 11 03/18/20 23 Active Active Problems Problem Noted Date Diagnosed Date Left lower lobe pulmonary nodule 09/18/2021 Migraines 09/12/2021 Assessment & Plan (09/12/2021 12:39 PM EDT): Assessment: managed with OTC medication, stable Asthma 09/12/2021 Assessment & Plan (09/12/2021 12:40 PM EDT): Assessment: managed with inhalers, follows up with pulmonology, stable Obesity 09/12/2021 Assessment & Plan (09/12/2021 12:38 PM EDT): Assessment: diet and exercise encouraged, BMI 53 PTSD (post-traumatic stress disorder) 09/12/2021 Smoker 09/12/2021 Assessment & Plan (09/12/2021 12:45 PM EDT): Assessment: current one pack per day smoker for 15 years Lung nodule 08/22/2021 Assessment & Plan (09/12/2021 12:40 PM EDT): Assessment: see HPI Resolved Problems Problem Noted Date Diagnosed Date Resolved Date Former smoker 09/12/2021 09/12/2021 Bipolar 1 disorder 09/12/2021 Immunizations Immunization Administration Dates Next Due Haemophilus influenzae b (Hi b) vaccine, unspecified formulation 07/28/1995,1992,1992 diphtheria tetanus pertussis (DTaP) vaccine, unspecified formulation 08/11/1996,01/26/1996,1992,1991 hepatitis B (HepB) vaccine, 3-dose series, age 0 yr - 19 yr (ENGERIX B-PEDS, RECOMBIVAX HB-PEDS) 08/11/1996,01/26/1996,07/28/1995 influenza (IIV4) vaccine, ag e 6 mo - 64 yr, quadrivalent, PF (AFLURIA, FLUARIX, FLULAVAL, FLUZONE) 04/05/2019,06/12/2015 measles mumps rubella (MMR) vaccine (M-M-R II, PRIORIX) 06/12/2015,01/25/2004,08/11/1996,1995 poliovirus vaccine, unspecif ied formulation 08/11/1996,07/28/1995,1992,1991 tetanus diphtheria pertussis (Tdap) vaccine, age 7+ yr (ADACEL, BOOSTRIX) 10/09/2020 tetanus toxoid (TT) vaccine 01/25/2004 Family History * Patient is adopted Medical History Relation Comments Alcohol/Drug Father Depression Father Alcohol/Drug Mother Bipolar disorder Mother Depression Mother Relation Status Comments Father Mother Alive Social History Tobacco Use Types Packs/Day Years Used Date Smoking Tobacco: Every Day Cigarettes 1 15 Smokeless Tobacco: Never Alcohol Use Standard Drinks/Week Comments Not Currently 0 (1 standard drink = 0.6 oz pur e alcohol) Area Deprivation Index Answer Date Espinoza rded National Score (1-100), lower number is lower ri sk 92 03/18/2023 State Score (1-10), lower number is lower risk 9 03/18/2023 Data from: https://www.neighborhoodatlas.medicine.[facility].edu/. Last address used for calculation [address] [facility] 03/18/2023 Comments No Sex and Gender Information Value Date Recorded Sex Assigned at Female 04/04/2020 8:47 AM EST Legal Sex Female 5:46 PM EST Gender Identity Female 04/04/2020 8:47 AM EST Sexual Orientation Choose not to disclose 2019 8:47 AM EST Last Filed Vital Signs Vital Sign Reading Time Taken Comments Blood Pressure 127/74 03/18/2023 11:20 AM EDT Pulse 91 03/18/2023 11:20 AM EDT Temperature 36.1 C (96.9 F) 03/18/2023 11:20 AM EDT Respiratory Rate 16 03/18/2023 11:20 AM EDT Oxygen Saturation 98% 03/18/2023 11:20 AM EDT Inhaled Oxygen Concentration - - Weight 124.7 kg (275 lb) 03/18/2023 11:20 AM EDT Height 157.5 cm (5' 2 ) 10/19/2021 9:15 AM EDT Body Mass Index 50.3 10/19/2021 9:15 AM EDT Plan of Treatment Health Maintenance Due Date Last Done Comments Annual PCP Team Chronic Dise ase Visit 02/03/2010 Depression Screening 02/03/2010 HIV Screening 02/03/2010 Hepatitis C Screening 02/03/2010 HPV Vaccine (1 - 3-dose SCDM series) 02/03/2019 Influenza Vaccine (#1) 2025 , 04/05/2019, 06/12/2015 Cervical Cancer Screening 03/26/2029 03/26/2024, 12/2023 DTaP,Tdap,Td Vaccine (6 - Td or Tdap) 10/09/2030 10/09/2020, 08/11/1996, 01/26/1996, Additional history exists Hepatitis B Vaccine Completed 08/11/1996, 01/26/1996, 07/28/1995 Procedures Procedure Name Priority Date/Time Associated Diagnosis Comments PAP TEST Routine 03/26/2024 3:39 PM EST Screening for cervical cancer from Last 3 Months or Most Recently Relevant to Health Maintenance Results * PAP TEST (03/26/2024 3:39 PM EST) Case Report Gynecologic Cytology Report Case: [id number] Authorizing Provider: Mary Baez APRN.PROCESS WORKER Collected: 03/26/2024 03:39 PM Ordering Location: [facility] Received: 03/26/2024 05:42 PM First Screen: [place], [place], [place], ASCP Specimen: Pap Test, ThinPrep, Cervix 04/01/2024 3:33 PM EST [facility] Specimen Adequacy Satisfactory for interpretation. 04/01/2024 3:33 PM EST [facility] Interpretation Negative for intraepithelial lesion or malignancy. 04/01/2024 3:33 PM EST [facility] at 1533 EST Clinical History Routine Exam 2023 3:33 PM EST [facility] LMP 03/13/2024 04/01/2024 3:33 PM EST [facility] Pap Disclaimer The Pap Smear is a screening test for cervical cancer. False negative results occur with all screening tests, emphasizing the need for rescreening at recommended intervals, and clinical correlation. 04/01/2024 3:33 PM EST [facility] PAP Clinical Laboratory Aide Comment This specimen has been analyzed by the ThinPrep Imaging System, an automated imaging and review system, which assists the laboratory in evaluating cells on ThinPrep Pap tests. Following automated imaging, selected roach from every slide are reviewed by a conveyor maintenance mechanic. 04/01/2024 3:33 PM EST [facility] Performing Lab Technical component, conveyor maintenance mechanic screening performed at [facility], [address] [place] [address] CLIA# [id number] Diagnostic interpretation performed at [facility], [address] [place] [address] CLIA# [id number] Oscillograph Technician: Tyler Simon M.D. 04/01/2024 3:33 PM EST [facility] Sterile Fluid/Body Fluid CERVICAL / Unknown Non Blood / Unknown 03/26/2024 3:39 PM EST 03/26/2024 5:42 PM EST us Mary Baez SESSIONS CLERK.PROCESS WORKER CYTOLOGY Final Res ult [facility] [address] [place] [address] from Last 3 Months or Most Recently Relevant to Health Maintenance Advance Directives * Full Code (Latest Code Status on File) Date Activated Date Inactivated Comments 09/18/2021 1:00 PM 09/19/2021 6:37 PM Question Answer Comments Full Code Order Discussed With: Patient Care Teams X Ray Physician Relationship Specialty Start [place] [address] [place] [address] PCP - General Internal Medicine 08/31/21 [place] [address] [place] [address] Referring Pulmonary and Critical Care Medicine 08/15/21
--- OUTSIDE RECORDS SUMMARY | 2025-02-13 13:43 | XMS_ITS | Encounter Summary ---
Author Organization [facility] Address [facility] [place] [address] Care Team Providers Care Recycle Worker Name Role Phone Kasia Vang MD Unavailable Qasmi Hinojosa MD Primary Care Provider + Source Comments In the event this information is protected by the Federal Confidentiality of Alcohol and Drug AbusePatient Records regulations: The Federal rules restrict any use of the information to criminally investigate or prosecute any alcohol or drug abuse patient.[facility] Encounter Details Date Type Department Care Team (Late st Contact Info) Description 03/26/2022 [place] [address] Provider, [facility] Schedule Imaging Follow Up Social History Tobacco Use Types Packs/Day Years [...] N ot on file 10/19/2021 Data from: https://www.neighborhoodatlas.medicine.[facility].edu/. Last address used for calculation [address] [...] Author No 09/19/2021 3:00 PM EDT Mary Clark, WARP HAND.FILAMENT WOUND PARTS FABRICATOR * Are you blind or do you have serious difficulty seeing, even when wearing glasses? Answer Date of Assessment Author No 09/19/2021 3:00 PM EDT Mary Clark, WARP HAND.FILAMENT WOUND PARTS FABRICATOR * Do you have serious difficulty walking or climbing stairs? Answer Date of Assessment Author No 09/19/2021 3:00 PM EDT Mary Clark, WARP HAND.FILAMENT WOUND PARTS FABRICATOR * Do you have difficulty dressing or bathing? Answer Date of Assessment Author No 09/19/2021 3:00 PM EDT Mary Clark, WARP HAND.FILAMENT WOUND PARTS FABRICATOR * Because of a physical, mental, or emotional condition, do you have difficulty doing errands alone such as visiting a doctor's office or shopping? Answer Date of Assessment Author No 09/19/2021 3:00 PM EDT Mary Clark, WARP HAND.FILAMENT WOUND PARTS FABRICATOR documented as of this encounter Mental Status * Because of a physical, mental, or emotional condition, do you have serious difficulty concentrating, remembering, or making decisions? Answer Entry Date Author No 09/19/2021 3:00 PM EDT Mary Clark, WARP HAND.FILAMENT WOUND PARTS FABRICATOR documented in this encounter Plan of Treatment Not on file documented as of this encounter Visit Diagnoses Not on filedocumented in this encounter Care Teams Recycle Worker Relationship Specialty Start [place] [address] [place] [address] PCP - General Internal Medicine 08/31/21 [place] [address] [place] [address] Referring Pulmonary and Critical Care Medicine 08/15/21 documented as of this encounter
--- OUTSIDE RECORDS SUMMARY | 2025-02-13 13:43 | XMS_ITS | Encounter Summary ---
Author Organization [facility] Address [address] [place] [address] Care Team Providers Care Junior Art Director Name Role Phone Kasia Vang MD Unavailable Qasim Hinojosa MD Primary Care Provider + Source Comments In the event this information is protected by the Federal Confidentiality of Alcohol and Drug AbusePatient Records regulations: The Federal rules restrict any use of the information to criminally investigate or prosecute any alcohol or drug abuse patient.[facility] Encounter Details Date Type Department Care Team (Late st Contact Info) Description 03/12/2022 Patient Msg Pulmonary Medicine [address] [address] [place] [address] [place] [address] Request an Appointment Social History Tobacco Use Types Packs/Day Years Used Date Smoking Tobacco: Every Day Cigarettes 1 15 Smokeless Tobacco: Never Alcohol Use Standard Drinks/Week Comments Not Currently 0 (1 standard drink = 0.6 oz pur e alcohol) Area Deprivation Index Answer Date Espinoza rded National Score (1-100), lower number is lower ri 84 10/19/2021 State Score (1-10), lower number is lower risk N ot on file 10/19/2021 Data from: https://www.neighborhoodatlas.medicine.[facility]/. Last address used for calculation [address] 10/19/2021 Comments No Sex and Gender Information [...] No 09/19/2021 3:00 PM EDT Mary Clark APRN.RNFA * Are you blind or do you have serious difficulty seeing, even when wearing glasses? Answer Date of Assessment Author No 09/19/2021 3:00 PM EDT Mary Clark APRN.RNFA * Do you have serious difficulty walking or climbing stairs? Answer Date of Assessment Author No 09/19/2021 3:00 PM EDT Mary Clark APRN.RNFA * Do you have difficulty dressing or bathing? Answer Date of Assessment Author No 09/19/2021 3:00 PM EDT Mary Clark APRN.RNFA * Because of a physical, mental, or emotional condition, do you have difficulty doing errands alone such as visiting a doctor's office or shopping? Answer Date of Assessment Author No 09/19/2021 3:00 PM EDT Mary Clark APRN.RNFA documented as of this encounter Mental Status * Because of a physical, mental, or emotional condition, do you have serious difficulty concentrating, remembering, or making decisions? Answer Entry Date Author No 09/19/2021 3:00 PM EDT Mary Clark APRN.RNFA documented in this encounter Plan of Treatment Not on file documented as of this encounter Visit Diagnoses Not on filedocumented in this encounter Care Teams Junior Art Director Relationship Specialty Start [place] [address] [place] [id number] PCP - General Internal Medicine 08/31/21 [place] [address] [place] [address] Referring Pulmonary and Critical Care Medicine 08/15/21 documented as of this encounter
== END 2025-02-13 13:41 | disposition home or self-care (01) ==
PROVIDERS: Emergency Provider Emergency Medicine
DX: J32.9 Chronic sinusitis, unspecified (principal); F17.200 Nicotine dependence, unspecified, uncomplicated
CPT/HCPCS: 99283

== ENCOUNTER 2025-03-08 13:53 | Emergency (ER) | payer MEDICAID, SELFPAY ==
[2025-03-08 13:57] VITALS: BP 162/99; PULSE 100; TEMP 36.9; O2SAT 98; BMI 53.1
--- NOTE | 2025-03-08 14:10 | XR_ITS ---
[place] [id number] Patient Name: ZHANE BRAGG MRN: [id number] date: 1990 Sex: F Assigned Patient Location: ED.MAIN Current Patient Location: ED.MAIN Accession/Order Number: [id number] Exam Date: 03/08/2025 14:40 Report Date: 03/08/2025 15:10 At the request of: JAMES FLOWER Procedure: XR chest 2V PA AND LATERAL CHEST: CLINICAL HISTORY: cough COMPARISON: 03/14/2024 FINDINGS: Unremarkable cardiomediastinal. Lungs are clear. No effusion or pneumothorax. IMPRESSION: NO ACUTE CARDIOPULMONARY ABNORMALITY. Impression dictated by: Roberto Hurt M.D. 03/08/2025 3:10 PM Dictation Location: [place] [address] Electronically authenticated by: [id number] Y Date: 03/08/2025 15:10
--- NOTE | 2025-03-08 14:15 | ED.URI1 ---
HPI - URI/Sore Throat General Chief Complaint: Upper Respiratory Infection Stated Complaint: URTI COMPLAINTS Time Seen by Provider: 03/08/25 14:03 Source: patient Limitations: no limitations History of Present Illness HPI Narrative: 35 year old female presents to the ED for a cough, ear pain/pressure, wheezing. Onset was over one month ago. Denies fever, chills. She has hx asthma. She completed a course of steroids and a Z-ren at the end of January. She has an appointment with neurology for her headaches. States she cannot get in to see her pcp until June,. She has been using her albuterol inhaler with little relief. Nathaniel fabian do not help with her cough. Denies sinus congestion/drainage. Related Data Home Medications ?Medication ?Instructions ?Recorded ?Confirmed albuterol sulfate 90 mcg/actuation 2 puff inhalation Q4H PRN 02/13/25 02/13/25 aerosol inhaler shortness of breath or wheezing amoxicillin 875 mg-potassium 1 tab PO BID 02/13/25 02/13/25 clavulanate 125 mg tablet prednisone 20 mg tablet 40 mg PO DAILY 02/13/25 02/13/25 Previous Rx's ?Medication ?Instructions ?Recorded fluticasone propionate 50 1 spray intranasal BID #16 grams 02/13/25 mcg/actuation nasal spray,suspension (Flonase Allergy Relief) loratadine 5 mg-pseudoephedrine ER 1 tab PO Q12H PRN nasal congestion 02/13/25 120 mg tablet,extended #20 tabs release,12hr (Claritin-D 12 Hour) albuterol sulfate 2.5 mg/3 mL 2.5 mg (3 mL) inhalation Q4H PRN 03/08/25 (0.083 %) solution for nebulization shortness of breath or wheezing #180 mL cetirizine 10 mg capsule (Zyrtec) 10 mg PO DAILY #30 caps 03/08/25 codeine 10 mg-guaifenesin 100 mg/5 5 ml PO BID PRN cough #70 mL 03/08/25 mL oral liquid hydrocodone 10 mg-chlorpheniramine 5 ml PO .nightly PRN cough #35 mL 03/08/25 8 mg/5 mL oral susp extend.rel 12hr ipratropium 0.5 mg-albuterol 3 mg 3 ml inhalation Q8H PRN shortness 03/08/25 (2.5 mg base)/3 mL nebulization of breath or wheezing #90 mL soln prednisone 10 mg tablet See Rx Instructions .Route 03/08/25 .COMPLEX #30 tabs Allergies Allergy/AdvReac Type Severity Reaction Status Date / Time latex Allergy Unknown Verified 03/08/25 13:57 metronidazole (From Flagyl) Allergy Unknown Verified 03/08/25 13:57 levofloxacin AdvReac Unknown Verified 03/08/25 13:57 vancomycin AdvReac Unknown Verified 03/08/25 13:57 Review of Systems ROS Constitutional Denies: fever, chills or fatigue Ears, nose, mouth, and throat Reports: ear pain; Denies: throat pain, neck pain, ear discharge, nasal discharge or nasal congestion Cardiovascular Denies: chest pain Respiratory Reports: shortness of breath, cough and wheezing Gastrointestinal Denies: abdominal pain, nausea, vomiting or diarrhea Musculoskeletal Reports: back pain Neurological Reports: headache; Denies: numbness in extremities, weakness in extremities or dizziness 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 Smoking status: Current every day smoker Non-prescribed substance use: denies use Previous occupational history: unemployed Highest level of school completed/degree received: some college, no degree Are you now , , , , never or living with a partner: never In a typical week, how many times do you talk on the telephone with family, friends, or neighbors: 3 or more times per week How often do you get together with friends or relatives: 3 or more times per week Little interest or pleasure in doing things: not at all Feeling down, depressed, or hopeless: not at all Feel stressed/tense/nervous/anxious/difficulty sleeping: not at all Do you think of yourself as: straight/heterosexual Gender Identity: female Exam Constitutional Vital Signs, click to edit/add: Last Vital Signs Temp 98.5 F 03/08/25 13:57 Pulse 100 H 03/08/25 14:27 Resp 20 03/08/25 14:27 BP 162/99 H 03/08/25 13:57 Pulse Ox 98 03/08/25 13:57 O2 Del Method Room Air 03/08/25 14:27 HENMT Common normals: normocephalic, external ears normal, EACs normal and moist oral mucous membranes Tympanic membrane: TM abnormal TM laterality: bilateral bulging Mouth: oral and palatal mucosa normal and lip normal Eye Common normals: PERRL, conjunctivae normal and no scleral icterus Neck & C-Spine Common normals: supple Chest Chest: symmetrical chest wall rise Respiratory Common normals: normal respiratory effort Effort & inspection: able to speak in complete sentences and symmetric chest movement Auscultation: wheezes and diminished lung sounds Cardio Common normals: regular rate and regular rhythm Neuro Common normals: oriented x3, CN's II-XII intact bilaterally, moves all extremities and no focal motor deficits Sensorium/orientation: awake and alert Speech: speech normal Course Vital Signs Vital signs: Vital Signs Temperature 98.5 F 03/08/25 13:57 Pulse Rate 100 H 03/08/25 13:57 Respiratory Rate 20 03/08/25 13:57 Blood Pressure 162/99 H 03/08/25 13:57 Pulse Oximetry 98 03/08/25 13:57 Temperature 98.5 F 03/08/25 13:57 Pulse Rate 100 H 03/08/25 14:27 Respiratory Rate 20 03/08/25 14:27 Blood Pressure 162/99 H 03/08/25 13:57 Pulse Oximetry 98 03/08/25 13:57 Oxygen Delivery Method Room Air 03/08/25 14:27 MDM - URI/Sore Throat MDM Narrative Medical decision making narrative: Chest x-ray was negative for acute findings. Findings were discussed. She requested Duoneb and albuterol for her nebulizer machine; she has only been using her albuterol inhaler. Prescriptions were also provided for Zyrtec, prednisone, and tussionex. The pharmacy reported tussionex was unavailable and the prescription was changed to guaifenesin with codeine. Follow up with pcp for a recheck, further evaluation and treatment. Return to the ED for worsening symptoms. Differential Diagnosis Differential diagnosis: Likely upper respiratory infection and other (asthma) Medical Records Attestation: I reviewed the patient's medical records. Imaging Data Chest x-ray: Attestation: I have reviewed the pertinent imaging results. Radiologist's impression: Procedure: XR chest 2V PA AND LATERAL CHEST: CLINICAL HISTORY: cough COMPARISON: 03/14/2024 FINDINGS: Unremarkable cardiomediastinal. Lungs are clear. No effusion or pneumothorax. IMPRESSION: NO ACUTE CARDIOPULMONARY ABNORMALITY. Impression dictated by: Roberto Hurt M.D. 03/08/2025 3:10 PM Dictation Location: [place] [address] Electronically authenticated by: [id number] Y Date: 03/08/2025 15:10 Discharge Plan Discharge Chief Complaint: Upper Respiratory Infection Clinical Impression: Viral upper respiratory tract infection with cough Asthma exacerbation Qualifiers: Asthma severity: moderate Asthma persistence: persistent Qualified Code(s): J45.41 - Moderate persistent asthma with (acute) exacerbation Patient Disposition: Home, Self-Care Time of Disposition Decision: 15:19 Condition: Good Mode of Transportation: Private Vehicle Prescriptions / Home Meds: New albuterol sulfate 2.5 mg /3 mL (0.083 %) solution for nebulization 2.5 mg inhalation Q4H PRN (Reason: shortness of breath or wheezing) Qty: 180 0RF prednisone 10 mg tablet See Rx Instructions .ROUTE .COMPLEX Qty: 30 0RF Rx Instructions: Take 5 tablets on days 1-2, 4 tabs on days 3-4, 3 tabs on days 5-6, 2 tabs on days 7-8, 1 tab on days 9-10. ipratropium-albuterol 0.5 mg-3 mg(2.5 mg base)/3 mL solution for nebulization 3 ml inhalation Q8H PRN (Reason: shortness of breath or wheezing) Qty: 90 0RF Zyrtec 10 mg capsule 10 mg PO DAILY Qty: 30 0RF hydrocodone-chlorpheniramine 10-8 mg/5 mL suspension,extended rel 12 hr 5 ml PO .nightly PRN (Reason: cough) Qty: 35 0RF codeine-guaifenesin 10-100 mg/5 mL liquid 5 ml PO BID PRN (Reason: cough) Qty: 70 0RF No Action amoxicillin-pot clavulanate 875-125 mg tablet 1 tab PO BID albuterol sulfate 90 mcg/actuation HFA aerosol inhaler 2 puff INHALATION Q4H PRN (Reason: shortness of breath or wheezing) prednisone 20 mg tablet 40 mg PO DAILY Claritin-D 12 Hour 5-120 mg tablet extended release 12 hr 1 tab PO Q12H PRN (Reason: nasal congestion) Qty: 20 0RF fluticasone propionate [Flonase Allergy Relief] 50 mcg/actuation spray,suspension 1 spray intranasal BID Qty: 16 0RF Rx Instructions: administer into each nostril Print Language: German Instructions: Asthma (ED), Upper Respiratory Infection (ED) Additional Instructions: Return to the ED for worsening symptoms. Follow up with your primary care provided for a recheck, further evaluation and treatment. Referrals: [facility] [Primary Care Provider, Unknown] - 1 week Discharge Date/Time: 03/08/25 15:33
[2025-03-08] MEDS: PREDNISONE 20 MG TABLET 40 MG PO (14:18)
--- OUTSIDE RECORDS SUMMARY | 2025-03-08 14:19 | XMS_ITS | CCD ---
Author Organization [facility] ion [facility] Care Team Providers Care Gasket Maker Name Role Phone VLADIMIR ESTRADA Unavailable Unavailab TERRY Costa Unavailable Unavailable PHYSICIAN, DEFAULT Unavailable Unavailable PHYSICIAN, DEFAULT Unavailable Unavailable Unavailable Primary Care Provider Unavailjerry e Radha Vang MD Unavailable Qasim Daley MD Primary Care Provider [facility] Primary Care Unava ilable DANIS EMERY Consulting Unavailable DANIS EMERY Admitting Unavailable DANIS EMERY Attending Unavailable Robert Viera Consulting Unavailable BLAISE, DR LOREDO Primary Care Unavailable BLAISE, DR LOREDO Admitting Unavailable LAKE, ZAIDA Consulting Unavailable BLAISE, DR LOREDO Attending Unavailable BLAISE, DR LOREDO Admitting Unavailable [facility] Care Unava ilable BLAISE, DR LOREDO Attending Unavailable BLAISE, DR LOREDO Admitting Unavailable [facility] Care Unava ilable BLAISE, DR LOREDO Attending Unavailable BLAISE, DR LOREDO Consulting Unavailable BLAISE, DR LOREDO Primary Care Unavailable BLAISE, DR LOREDO Admitting Unavailable BLAISE, DR LOREDO Attending Unavailable BLAISE, DR LOREDO Consulting Unavailable BLAISE, DR LOREDO Admitting Unavailable [facility] Primary Care Unavailable BLAISE, DR LOREDO Attending Unavailable BERNADETTE NULL Attending Unavailable BERNADETTE NULL Consulting Unavailable BERNADETTE NULL Admitting Unavailable [facility] Primary Care Unava ilable Unavailable Primary Care Provider Unavailabl e NO FAMILY, PHYSICIAN Primary Care Provider Unava ilable MD Jus Santos Admit Provider MD Jus Santos Attending Provider Radha Vang MD Unavailable Qasim Daley MD Primary Care Provider Bessy Medina Unavailable Jus Santos Admitting Unavailable NO FAMILY, PHYSICIAN Primary Care Unavailable Hardy Jones Attending Unavailab le Kelechi Joneshman Admitting Unavailab le Hardy Jones Attending Unavailab le NO FAMILY, PHYSICIAN Primary Care Unavailable Maricel Daley MD, [facility] Primary Care Provider YASMIN BAEZ Attending Unavailable MARICEL DALEY QASIM Primary Care Unavailabl e NO FAMILY, PHYSICIAN Primary Care Provider Unava ilable Shauna Carrillo APRN Attending Provider [phone] SERVICES, [facility] Primary Care Unava ilable SERVICES, [facility] Care Unava ilable MARY TAFOYA Attending Unavailable Allergies Allergy ClassificationReported Allergen(s)Allergy TypeDate of OnsetReaction(s) Facility (20 sources)Latex; Translations: [LATEX]Drug Hkgvfwm45-61-0130[facility] (20 sources)levoFLOXacin; Translations: [LEVOFLOXACIN]Drug Mfmnjsp04-68-6891 Other: See [facility] (20 sources)metroNIDAZOLE; Translations: [METRONIDAZOLE]Drug Mflfujo28-49-5289 [facility] (2 sources)LatexDrug allergy (disorder)17-07-2059Kbx [facility] Rep[facility] (1 source)levoFLOXacinDrug AllergyThe [facility] Rep[facility] (2 sources)metroNIDAZOLEDrug Wtwzumg74-99-8232Osg [facility] Repository (10 sources)Vancomycin; Translations: [VANCOMYCIN]Drug Dzctjmb53-91-6289Cneys [facility] (7 sources)Adhesive Tape-Silicones; Translations: [ADHESIVE TAPE-SILICONES] Propensity to adverse reactions to nvix60-74-8834Udybm: See [facility] (3 sources)raspberry extract; Translations: [raspberry]Drug Rgzyhkk06-20-2346 [facility] (3 sources)kiwi; Translations: [kiwi]Allergy to pclweexzt67-73-7180Tzupzkf ReactionSt. Anthony'S Hospital (1 source)LatexDrug allergy (disorder)53-31-9052XlphidinxSt. Anthony'S Hospital Rep[facility] (1 source)metroNIDAZOLEDrug Jlhxujx90-48-1923OgcsiogxdSt. Anthony'S Hospital Repository (1 source)VancomycinDrug Nxzjoaz51-33-2837HasdieplcSt. Anthony'S Hospital Repository Medications Current Medications MedicationDrug Class(es)DatesSig (Normalized)Sig (Original)[id number] 200 actuat albuterol 0.09 mg/actuat metered dose inhaler (20 sources)beta2-Adrenergic AgonistStart: 93-91-0824jwdy 1 puff(s) by inhalation every four to six hours as needed for wheezingAlbuterol Sulfate 90 mcg/actuation HFA aerosol inhaler Active 2 PUFF INHALATION EVERY 4-6 HOURS as n eeded for shortness of breath or wheezing 8.5 February 11, 2025 12:00am Complies with drug therapyStart: 98-55-4922yfvp 1 puff(s) by inhalation every six hours as needed for wheezingAlbuterol Sulfate 90 mcg/actuation HFA aerosol inhaler Active 2 PUFF INHALATION Every 6 hours as needed for Wheezing March 10, 2023 12:00am Complies with drug therapyStart: 07-28-2019 End: 42-64-2561zdou 2 puff(s) by inhalation every six hours as needed for wheezingalbuterol HFA (PROVENTIL HFA, VENTOLIN HFA) 90 mcg/actuation inhaler Inhale 2 Puffs as instructed every 6 hours as needed for wheezing/shortness of breath. 1 Each 3 03/18/2023 ActiveVentolin HFA ActiveComment on above:Inhale 2 Puffs as instructed every 6 hours as needed.Inhale 2 Puffs as instructed every 6 hours as needed for wheezing/shortness of breath. albuterol 0.833 mg/ml / ipratropium bromide 0.167 mg/ml inhalation solution (15 sources)Anticholinergic, beta2-Adrenergic AgonistStart: 07-13-2021 End: 64-83-7283yvbi 3 mL by inhalation every six hours as neededipratropium- albuterol (DUONEB) 0.5 mg-3 mg(2.5 mg base)/3 mL nebu Inhale 3 mL as instructed every 6hours as needed for wheezing/shortness of breath. 270 mL 3 03/18/2023 ActiveStart: 01-52-0793wusvbdtxpfs-albuterol (DUONEB) 0.5 mg-3 mg(2.5 mg base)/3 mL nebu USE 1 AMPULE IN NEBULIZER 4 TIMESDAILY 0 07/13/2021 SuspendedComment on above:USE 1 AMPULE IN NEBULIZER 4 TIMES DAILYInhale 3 mL as instructed every 6 hours as needed for wheezing/shortness of breath. amoxicillin 875 mg / clavulanate 125 mg oral tablet (1 source)Penicillin-class AntibacterialStart: 55-17-9796fvkn 1 tablet by mouth every twelve hoursAmoxicillin-Pot Clavulanate 875-125 mg tablet Active 1 TAB PO Every 12 hours 07 03February 11, 2025 12:00am Complies with drug therapy Budesonide / formoterol (20 sources)Corticosteroid, beta2-Adrenergic AgonistStart: 98-84-4351fmjv 2 puff(s) by inhalation twice dailybudesonide-formoterol (SYMBICORT) 160-4.5 mcg/actuation inhaler Inhale 2 Puffs as instructed two times a day. 11 g 11 03/18/2023 ActiveStart: 03-18-2023 End: 04-48-1006jkgj 2 puff(s) by inhalation twice dailybudesonide-formoterol (SYMBICORT) 160-4.5 mcg/actuation inhaler Inhale 2 Puffs as instructed two times a day. 11 g 11 03/18/2023 04/17/2023 ActiveStart: 03-18-2023 End: 53-18-1482xkyj 2 puff(s) by inhalation twice dailybudesonide-formoterol (SYMBICORT) 160-4.5 mcg/actuation inhaler Inhale 2 Puffs as instructed two times a day. 11 g 2 03/18/2023 03/18/2023 DiscontinuedStart: 03-10-2023 End: 30-27-6471qejh 1 puff(s) by inhalation twice dailyBudesonide-Formoterol (Symbicort) 160-4.5 mcg/actuation HFA aerosol inhaler Discontinued 2 PUFF INHA LATION Twice daily March 10, 2023 12:00am February 11, 2025 1:09pmStart: 04-05-2019 End: 51-21-0149ckje 2 puff(s) by inhalation twice dailybudesonide-formoterol (SYMBICORT) 160-4.5 mcg/actuation inhaler Inhale 2 Puffs as instructed twice d aily. 0 04/05/2019 03/18/2023 DiscontinuedStart: 96-28-1507uonu 2 puff(s) by inhalation twice dailybudesonide-formoterol (SYMBICORT) 160-4.5 mcg/actuation inhaler Inhale 2 Puffs as instructed twice daily. 0 04/05/2019 ActiveStart: 67-49-7627fafu 2 puff(s) by inhalation twice dailybudesonide-formoterol (SYMBICORT) 160-4.5 mcg/actuation inhaler Inhale 2 Puffs as instructed twice d aily. 0 04/05/2019 SuspendedStart: 69-95-1673ymvvsasqnr-formoterol (SYMBICORT) 160-4.5 mcg/actuation inhaler Inhale 2 Puffs as instructed. 0 04/05/2019 Active Symbicort 160-4.5 MCG/ACT Inhalation for 30 Days ActiveComment on above:Inhale 2 Puffs as instructed.Inhale 2 Puffs as instructed twice daily. Inhale 2 Puffs as instructed two times a day.cephalexin 500 mg oral capsule (1 source)Cephalosporin AntibacterialStart: 45-33-7806bvdd 1 capsule by mouth every eight hoursCephalexin 500 MG 1 capsule Orally every 8 hrs for 5 days May, Activeloperamide hydrochloride 2 mg oral capsule (6 sources)Opioid AgonistStart: 06-27-2021 End: 63-92-1327myuu 1 capsule by mouth four times daily as neededloperamide (IMODIUM) 2 mg cap(s) TAKE 1 CAPSULE BY MOUTH 4 TIMES DAILY NEEDED 0 06/27/2021 09/14/2021 Discontinued (Discontinued by Patient)Comment on above: TAKE 1 CAPSULE BY MOUTH 4 TIMES DAILY NEEDEDondansetron 4 mg oral tablet (6 sources)Serotonin-3 Receptor Antagonist End: 01-23-0992wjbd 1 tablet by mouth every eight hours as neededondansetron (ZOFRAN) 4 mg tablet Take 4 mg by mouth three times daily as needed. 0 09/14/2021 Discontinued (Discontinued by Patient)Comment on above:Take 4 mg by mouth three times daily as needed.oxyCODONE hydrochloride 5 mg oral tablet (3 sources)Opioid AgonistStart: 09-22-2021 End: 36-46-0728tquc 1 tablet by mouth every six hours as needed for pain oxyCODONE IR (ROXICODONE) 5 mg immediate release tablet Indications: Acute post- operative pain Take1 tablet by mouth every 6 hours as needed for pain for up to 7 days. 28 tablet 0 09/22/2021 09/29/2021 ActiveComment on above:Take 1 tablet by mouth every 6 hours as needed for pain for up to 7 days.predniSONE 20 mg oral tablet (7 sources)Start: 45-70-1278xoip 2 tablets by mouth once dailyPrednisone 20 mg tablet Active 20 MG PO .COMPLEX February 11, 2025 12:00am Take 2 tabs po daily x 5 days Complies with drug therapyStart: 12-28-2020 End: 57-53-7095baohidDOAM (DELTASONE) 50 mg Take 50 mg by mouth. 0 12/28/2020 09/14/2021 Discontinued (Discontinued by Patient)Comment on above:Take 50 mg by mouth. Completed/Discontinued Medications MedicationDrug Class(es)DatesSig (Normalized)Sig (Original)acetaminophen 500 mg oral tablet (9 sources)Start: 09-19-2021 End: 04-08-6992bxrr 2 tablets by mouth every six hoursacetaminophen (TYLENOL) 500 mg tablet Take 2 tablets by mouth every 6 hours. 0 09/19/2021 03/18/2023 Discontinuedtake 2 tablets by mouth every six hours as neededacetaminophen (TYLENOL) 325 mg tablet Take 650 mg by mouth every 6 hours as needed. 0 Active Comment on above:Take 650 mg by mouth every 6 hours as needed.Take 2 tablets by mouth every 6 hours.ARIPiprazole 400 mg extended release prefilled syringe (7 sources)Atypical AntipsychoticStart: 09-23-2022 End: 40-92-3928ruwsws 400 mg by intramuscular injection every monthAripiprazole (Abilify Maintena) 400 mg suspension,extended rel syring Discontinued 400 MG IM every month March 10, 2023 12:00am February 11, 2025 1:09pmComment on above:as directed Intramuscular Once a month for 30 days aspirin/acetaminophen/caffeine (EXCEDRIN MIGRAINE ORAL) (9 sources) End: 13-95-6276rkmayaw/acetaminophen/caffeine (EXCEDRIN MIGRAINE ORAL) Take 1 tablet by mouth as needed (for migraine). 0 03/18/2023 Discontinued aspirin/acetaminophen/caffeine (EXCEDRIN MIGRAINE ORAL) Take 1 tablet by mouth as needed (for migraine). 0 Activeaspirin/acetaminophen/caffeine (EXCEDRIN MIGRAINE ORAL) Take 1 tablet by mouth as needed (for migraine). 0 Suspended aspirin/acetaminophen/caffeine (EXCEDRIN MIGRAINE ORAL) Take by mouth as needed. 0 ActiveComment on above:Take by mouth as needed.Take 1 tablet by mouth as needed (for migraine). cholecalciferol 0.025 mg oral tablet (3 sources)Vitamin DStart: 03-12-2023 End: 91-62-3889uhgr 1 tablet by mouth once dailyCholecalciferol (Vitamin D3) 25 mcg (1,000 unit) Tablet Discontinued 50 MCG PO Daily 60 March 12, 2023 12:00am February 11, 2025 1:09pmcitalopram 10 mg oral tablet (7 sources)Serotonin Reuptake InhibitorStart: 03-12-2023 End: 68-73-2517epjq 1 tablet by mouth once daily in the morningCitalopram 10 mg Tablet Discontinued 10 MG PO Every morning 15 March 12, 2023 12:00am February 11, 2025 1:09pmComment on above:TAKE 1 TABLET BY MOUTH EVERY DAY IN THE MORNING FOR 15 [id number] 0.3 ml EPINEPHrine 1 mg/ml auto-injector (17 sources)alpha-Adrenergic Agonist, beta-Adrenergic Agonist, Catecholamine Start: 04-13-2019 End: 07-17-1805CPJHBZBcdnp (EPIPEN) 0.3 mg/0.3 mL auto-injector Inject 0.3 mg intramuscularly as needed (allergic reaction). 0 04/13/2019 03/18/2023 DiscontinuedComment on above:Inject 0.3 mg intramuscularly at bedtime as needed. Inject 0.3 mg intramuscularly as needed (allergic reaction). famotidine 10 mg oral tablet (9 sources)Histamine-2 Receptor AntagonistStart: 04-01-2020 End: 51-77-2817qusyhlinne (PEPCID) 10 mg tablet 20 mg. 0 04/01/2020 09/14/2021 Discontinued (Discontinued by Patient)Comment on above:20 mg.formoterol / Mometasone (1 source)Corticosteroid, beta2-Adrenergic AgonistDulera Not-Taking/PRN hydrOXYzine pamoate 50 mg oral capsule (7 sources)AntihistamineStart: 03-12-2023 End: 08-18-5580pzcb 1 capsule by mouth every six hours as needed for anxiety Hydroxyzine Pamoate 50 mg Capsule Discontinued 50 MG PO Q6H as needed for Anxiety March 12, 2023 12:00am February 11, 2025 1:09pmComment on above:TAKE 1 CAPSULE BY MOUTH EVERY 6 HOURS NEEDED FOR ANXIETY FOR 15 DAYS ibuprofen 200 mg oral tablet (9 sources)Nonsteroidal Anti-inflammatory Drug End: 61-58-7204cutg 1 tablet by mouth every six hours as neededibuprofen (ADVIL) 200 mg tablet Take 200 mg by mouth every 6 hours as needed for pain. 0 03/18/2023iscontinuedComment on above:Take 200 mg by mouth every 6 hours as needed.Take 200 mg by mouth every 6 hours as needed for pain. lamoTRIgine 25 mg oral tablet (7 sources)Mood Stabilizer, Anti-epileptic AgentStart: 03-12-2023 End: 71-73-6481cxlq 1 tablet by mouth once dailyLamotrigine 25 mg Tablet Discontinued 25 MG PO Daily March 12, 2023 12:00am February 11, 2025 1:09pmComment on above:TAKE 1 TABLET BY MOUTH EVERY DAY FOR 15 DAYS metoprolol tartrate 25 mg oral tablet (7 sources)beta-Adrenergic BlockerStart: 09-19-2021 End: 69-61-7690eugg 1 tablet by mouth every twelve hoursmetoprolol tartrate, short acting, (LOPRESSOR) 25 mg tablet Take 1/2 tablet by mouth every 12 hours. 30 tablet 0 09/19/2021 03/18/2023 DiscontinuedComment on above:Take 1/2 tablet by mouth every 12 hours. Fmkidxkr-Pe-Vzt-Fe-FA tab (9 sources) End: 49-71-4695btqx 1 tablet by mouth oncePrenatal Nvvxvbiy-Wb-Ttx-Fe-FA tab Take 1 tablet by mouth. 0 09/14/2021 Discontinued (Discontinued by Patient)take 1 tablet by mouth oncePrenatal Afobogjr-Ko-Okf-Fe-FA tab Take 1 tablet by mouth. 0 ActiveComment on above:Take 1 tablet by mouth.promethazine hydrochloride 12.5 mg oral tablet (9 sources)Phenothiazine End: 86-62-1516uiai 1 tablet by mouth every eight hours as neededpromethazine (PHENERGAN) 12.5 mg tablet Take 12.5 mg by mouth three times daily as needed. 0 09/14/2021 Discontinued (Discontinued by Patient)Comment on above:Take 12.5 mg by mouth three times daily as needed.tiotropium 0.018 mg inhalation powder (17 sources)AnticholinergicStart: 04-04-2020 End: 34-41-3476sver 1 capsule by inhalation once dailytiotropium (SPIRIVA WITH HANDIHALER) 18 mcg inhalation capsule Inhale 1 capsule as instructed once daily. Use with HandiHaler. 30 capsule 3 04/04/2020 03/18/2023 DiscontinuedComment on above:Inhale 1 capsule as instructed once daily. Use with HandiHaler.traMADol hydrochloride 50 mg oral tablet (4 sources)Opioid AgonistStart: 09-19-2021 End: 73-27-3183znec 1 tablet by mouth every six hours as needed for paintraMADol (ULTRAM) 50 mg tablet Indications: Acute post-operative pain Take 1 tablet by mouth every 6 hours as needed for pain for up to 7 days. 28 tablet 0 09/19/2021 09/22/2021 Discontinued (Side Effects)Comment on above:Take 1 tablet by mouth every 6 hours as needed for pain for up to 7 days.traZODone hydrochloride 50 mg oral tablet (7 sources)Serotonin Reuptake InhibitorStart: 03-12-2023 End: 56-84-6522pfgy 1 tablet by mouth once daily at bedtime as neededTrazodone 50 mg Tablet Discontinued 50 MG PO Daily at bedtime as needed for Insomnia March 12, 2023 12:00am February 11, 2025 1:09pmComment on above:TAKE 1 TABLET BY MOUTH EVERY DAY AT BEDTIME NEEDED FOR INSOMNIA FOR 15 DAYS Problems Active Problems Problem ClassificationProblemDateDocumented DateEpisodic/ChronicAnxiety disorders (13 sources)Posttraumatic stress disorder; Translations: [Post-traumatic stress disorder, unspecified]Onset: 43-06-7568TtlkxmvUgwzsf (17 sources)Uncomplicated asthma; Translations: [Unspecified asthma, uncomplicated]Onset: 63-15-4735DoohjepQmohcoqxez disorders (1 source)Gastroesophageal reflux disease; Translations: [GERD [Gastroesophageal reflux disease]]ChronicHeadache; including migraine (13 sources)Migraine; Translations: [Migraine, unspecified, not intractable, without status migrainosus]Onset: 96-41-0638VckncwoKxzkhvaq; including migraine (1 source)Headache; including migraine; Translations: [Headache, unspecified] Onset: 53-63-5330Knirkmfrf neoplasm without specification of site (1 source)Primary malignant neoplasm; Translations: [Malignant (primary) neoplasm, unspecified]38-74-1493OtjodkmUejm disorders (12 sources)Bipolar I disorder; Translations: [Bipolar disorder, unspecified] Onset: 09-12-2021 Resolved: 44-72-5100DtsspbkRvvap aftercare (1 source)Other exterminator (current) drug therapy; Translations: [OTH MCFP CURRENT DRUG THERAPY]Onset: 72-69-3146GbmoaifyDzetc lower respiratory disease (1 source)Pulmonary granuloma; Translations: [Pulmonary fibrosis, unspecified] 70-75-7045HqbejqxZsiil lower respiratory disease (1 source)Multiple nodules of lung; Translations: [Other nonspecific abnormal finding of lung field]10-67-3218QgcuyqhoTgwmg nervous system disorders (2 sources)Acute postoperative pain; Translations: [Other acute postprocedural pain]EpisodicOther nutritional; endocrine; and metabolic disorders (1 source)Severe obesity; Translations: [Morbid (severe) obesity due to excess calories]ChronicOther nutritional; endocrine; and metabolic disorders (2 sources)Body mass index 40+ - severely obese; Translations: [Body mass index (BMI) 50.0-59.9, adult]ChronicOther nutritional; endocrine; and metabolic disorders (12 sources)Obesity; Translations: [Obesity, unspecified]Onset: 09-12-2021 43-56-1073OhpkuqlKyxll screening for suspected conditions (not mental disorders or infectious disease) (2 sources)Cancer cervix screening status; Translations: [Encounter for screening for malignant neoplasm of cervix]10-66-8785NzecuefwZwxxa upper respiratory infections (1 source)Chronic sinusitis, unspecified; Translations: [Chronic sinusitis, unspecified]Onset: 48-20-2259NibbiebRyflupvs codes; unclassified (1 source)Other specified postprocedural states; Translations: [OTH SPECIFIED POSTPROCEDURAL STATES]Onset: 53-39-8365UofzvgphLdbntajq codes; unclassified (1 source)Patient noncompliance - general; Translations: [Patient non adherence] 72-08-1439OwwyzxzuQfgr and subcutaneous tissue infections (1 source)Cellulitis of right fingerEpisodicSubstance-related disorders (14 sources)Smoker; Translations: [Nicotine dependence, unspecified, uncomplicated]Onset: 87-97-5638OxxenmqWqnolmi and intentional self-inflicted injury (3 sources)Suicidal thoughts; Translations: [Suicidal ideations]03-10-2023 EpisodicUnclassified (1 source)Unknown / UNK(Unknown)Onset: 77-44-0897Lidgyuryfpxw (1 source)CONTACT W/AND (SUSP) EXPOS COVID-19; Translations: [CONTACT W/AND (SUSP) EXPOS COVID-19]Onset: 99-42-7685Aaffcwxheatf (1 source)Cold Like SymptomsOnset: 11-86-9361Xqekedsxgeih (1 source)ENT ProblemOnset: 51-84-9752Iserysyiycsi (2 sources)RashOnset: 10-19-2024 Past or Other Problems Problem ClassificationProblemDateDocumented DateEpisodic/ChronicAcute bronchitis (1 source)Acute bronchitis, unspecified; Translations: [ACUTE BRONCHITIS UNSPECIFIED]Onset: 58-01-0443AiyqpkxdRqcphqdf reactions (5 sources)Unspecified contact dermatitis, unspecified cause; Translations: [Dermatitis, unspecified]Onset: 17-53-6141UbkxxwzsTxddh lower respiratory disease (1 source)DyspneaOnset: 79-95-0114XpgpodbcDajis lower respiratory disease (20 sources)Nodule of lung; Translations: [Solitary pulmonary nodule]Onset: 19-42-2125WssgsqdmKnker lower respiratory disease (3 sources)Cough; Translations: [COUGH]Onset: 92-24-4153JvlqigxhHdzrntqtn and history of mental health and substance abuse codes (5 sources)Ex-smoker; Translations: [Personal history of nicotine dependence] Onset: 09-12-2021 Resolved: 20-25-8756Npflsgvx Results Test NameValueInterpretationReference RangeFacilityCT BRAIN WO CONTon 02-13-2025 CT BRAIN WO CONTCT BRAIN WO CONT STUDY: CT BRAIN WO CONT INDICATION: headache, nasal drainage. TECHNIQUE: * CT head was performed without intravenous contrast using the standard protocol. Automated exposure control was utilized. * All CT scans at this facility use dose modulation, iterative reconstruction, and/or weight based dosing when appropriate to reduce radiation dose to as low as reasonably achievable. FINDINGS: No evidence of acute intracranial hemorrhage, mass effect, midline shift, or extra-axial fluid collection. Ventricles, sulci and cistern are unremarkable. Brain volume is age appropriate. Partially empty sella. Perez-white matter differentiation is preserved. Orbits and globes appear unremarkable. Soft tissues are unremarkable. Moderate mucosal thickening and secretions in the right sphenoid sinus. Slight layering fluid in the left maxillary sinus. Mucosal thickening in the right maxillary, ethmoid sinuses. Trace mucosal thickening in the left aortic sinus. Mastoid air cells are broadly clear. No evidence of aggressive osseous lesion. IMPRESSION: * No acute intracranial abnormality, by CT. * Partially empty sella. Correlate with symptoms of idiopathic intracranial hypertension. * Mucosal thickening noted within the right sphenoid sinus with trace fluid in the left maxillary sinus. Correlate with symptoms of sinusitis. Finalized by Que Chavis on 02/13/2025 3:40 PMNormalProMedica Desert Valley Hospital 97-87-1074LHPDRiamja Visit (HEMACO) SANDEE NULL ([id number]) 1990 F Date Time Provider Department 03/26/24 9:20 AM YASMIN BAEZ During your visit today, we recorded the following information about you: Yasmin Baez APRN.CNP 03/27/2024 7:15 PM Signed Specimen was collected by a licensed professional volunteer provider. The sensitive examination was discussed with the Patient or Patient's Authorized Compliance Associate. As applicable, any other physician, advance practice provider, medical student, or other health professional student that will be observing or involved in the sensitive examination for educational or training purposes was discussed with the Patient or Authorized Compliance Associate. The Patient or Authorized Compliance Associate has agreed to proceed with the sensitive examination. (Sensitive examination includes inspection and/or palpation of the breasts, pelvis, prostate and anorectal regions) Patient was seen for cervical cancer screening. [place] [facility] on March 26 2024. Yasmin Baez APRN.GUSSET FOLDER Allergies As of Date: 03/26/2024 Noted Allergy [...] 09/18/2021 Encounter Status:Closed by YASMIN BAEZ on 03/27/24NormalCLakeHealth TriPoint Medical CenterHIGH RISK HUMAN PAPILLOMA VIRUS (HPV), PCR FOR DETECTION AND GENOTYPING on 36-33-3933XGH 16 Ag Ql (Unsp spec)Not detectedNormalNot detectedWyandot Memorial Hospital on above:Order Comment: Specimen Type: FLUID SPECIMEN Ordering Facility: [facility] Address: [address] [place], [place] [address]Performed By: #### HPVHRT #### [facility] CLIA [id number] [address] [place] [address] [place] AMER[place]AHPV 18 Ag Ql (Unsp spec)Not detectedNormalNot detectedWyandot Memorial Hospital on above:Order Comment: Specimen Type: FLUID SPECIMEN Ordering Facility: [facility] Address: [address] [place], [place] [address]Performed By: #### HPVHRT #### [facility] CLIA [id number] [address] [place] [address] [place] 31+33+35+39+45+51+52+56+58+59+66+68 DNA SULLY+probe Ql (Cvx)Not detectedNormalNot detectedWyandot Memorial Hospital on above:Order Comment: Specimen Type: FLUID SPECIMEN Ordering Facility: [facility] Address: [address] [place], [place] [address]Result Comment: High Risk HPV Other Type includes HPV types 31, 33, 35, 39, 45, 51, 52, 56, 58, 59,66 and 68. Performed By: #### HPVHRT #### [facility] CLIA [id number] [address] [place] [address] [place] OF AMERICAPAP TESTon 03-26-2024 ADEQUACYSatisfactory for interpretation.NormalWyandot Memorial Hospital on above:Order Comment: Specimen Type: FLUID SPECIMEN Ordering Facility: [facility] Address: [address] [place], [place] [address]Performed By: #### [id number] #### [facility] CLIA [id number] [address] [place] [address] [place] OF AMERICACASE REPORTNormalCOhioHealth [facility] on above:Order Comment: Specimen Type: FLUID SPECIMEN Ordering Facility: [facility] Address: [address] [place], [place] [address]Result Comment: Gynecologic Cytology Report Case: [id number] Authorizing Provider: Yasmin Baez APRN.GUSSET FOLDER Collected: 03/26/2024 03:39 PM Ordering Location: [facility] Received: 03/26/2024 05:42 PM First Screen: Alis Miller, CT, ASCP Specimen: Pap Test, ThinPrep, CervixPerformed By: #### [id number] #### [facility] CLIA [id number] [address] [place] [address] [place] OF AMERICACLINICAL HISTORY, CYTOLOGY, GYNRoutine ExamNormalCwood county hospital Clinic ClevelandComment on above:Order Comment: Specimen Type: FLUID SPECIMEN Ordering Facility: [facility] Address: [address] [place], [place] [address]Performed By: #### [id number] #### [facility] CLIA [id number] [address] [address] [place] STATES OF AMERICAFINAL PERFORMING LABNormal [facility] on above:Order Comment: Specimen Type: FLUID SPECIMEN Ordering Facility: [facility] Address: [address] [place], [place] [address]Result Comment: Technical component, medart operator screening performed at [facility], [facility] [address] CLIA# [id number] Diagnostic interpretation performed at [facility], [facility] [place] [address] CLIA# [id number] Electronic Pagination System Operator: Tyler Simon M.D.Performed By: #### [id number] #### [facility] CLIA [id number] [address] [address] [place] STATES OF AMERICAINTERPRETATION, CYTOLOGY, GYNNoRegency Hospital Company on above:Order Comment: Specimen Type: FLUID SPECIMEN Ordering Facility: [facility] Address: [address] [place], [place] [address]Result Comment: Negative for intraepithelial lesion or malignancy. Performed By: #### [id number] #### [facility] CLIA [id number] [address] [address] [place] OF NTJLNJZUXC55/26/2024NoRegency Hospital Company on above:Order Comment: Specimen Type: FLUID SPECIMEN Ordering Facility: [facility] Address: [address] [place], [place] [address]Performed By: #### [id number] #### [facility] CLIA [id number] [address] DISCLAIMER COMMENTThe Pap Smear is a screening test for cervical cancer. False negative results occur with all screening tests, emphasizing the need for rescreening at recommended intervals, and clinical correlation.[facility] HospitalComsheridan [facility] on above:Order Comment: Specimen Type: FLUID SPECIMEN Ordering Facility: [facility] Address: [address] [place], [place] [address]Performed By: #### [id number] #### [facility] CLIA [id number] [address] [place] [address] SECURE SOFTWARE ASSESSOR COMMENTThis specimen has been analyzed by the ThinPrep Imaging System, an automated imaging and review system, which assists the laboratory in evaluating cells on ThinPrep Pap tests. Following automated imaging, selected roach from every slide are reviewed by a medart operator.[facility] on above: Order Comment: Specimen Type: FLUID SPECIMEN Ordering Facility: [facility] Address: [address] [place], [place] [address]Performed By: #### [id number] #### [facility] CLIA [id number] [address] [place] [address] [place] AMERICACholesterol [Mass/volume] in Serum or PlasmaOrdered By: Hardy Jones on 20-40-0098Myyzglnpeeh [Mass/Vol]143 mg/yQJrwlnj705-352BdincpwrtSt. Anthony'S HospitalComment on above:Chol less than 200 mg/dl low riskChol 201-239 mg/dl borderline riskChol 240 mg/dl and greater high riskOrder Comment: FASTING YResult Comment: Chol less than 200 mg/dl low risk Chol 201-239 mg/dl borderline risk Chol 240 mg/dl and greater high riskPerformed By: #### TSH3 wRFLX, LIPID, [id number] #### [facility] [address] [place] [address] USACholesterol in LDL Calc [Mass/Vol]Ordered By: Hardy Jones on 05-10-0095Zbagfjwibse in LDL [Mass/Vol]77 mg/dL0-100St. Anthony'S HospitalComment on above:LDL ATP III CLASSIFICATIONLDL less than 100 mg/dL OptimalLDL 100-129 mg/dL Near or above pssplqlRVG929-593 mg/dL Borderline highLDL 160-189 mg/dL HighLDL greater than 189 mg/dL Very high Cholesterol in VLDL Calc [Mass/Vol]Ordered By: Hardy Jones on 93-02-4805Xqgfhuskssq in VLDL [Mass/Vol]18 mg/dLSt. Anthony'S HospitalECG 12 lead ECGon 54-76-8692ATQ 12 lead ECGDELAWARE COUNTY HOSPITAL Main Poston [address] [place] [address] Electrocardiograph Report Signed Patient: Sandee Null MR#: [id number] : 1990 Acct:[id number] Age/Sex: 33 / F ADM Date: 03/10/23 Loc: Room: [address] [place] [address] Type: ADM IN Attending Dr: Jus Santos [...] MUS Signed By Inga Miller DO 03/10 1722[facility] Physician GroupLipid Panelon 96-21-8082BTI Cholesterol,Bwnplubfuj78 mg/dLNormal0-100[facility] Physician GroupComment on above:Order Comment: FASTING YResult Comment: LDL ATP III CLASSIFICATION LDL less than 100 mg/dL Optimal LDL 100-129 mg/dL Near or above optimal LDL 130-159 mg/dL Borderline high LDL 160-189 mg/dL High LDL greater than 189 mg/dL Very highPerformed By: #### TSH3 wRFLX, LIPID, [id number] #### [facility] [address] [place] [id number] USATriglyceride w/Dozvpa85 mg/dLNormal0-149[facility] Physician GroupComment on above:Order Comment: FASTING YResult Comment: TRIG ATP III CLASSIFICATION TRIG less than 150 mg/dL Normal TRIG 150-199 mg/dL Borderline high TRIG 200-500 mg/dL High TRIG greater than 500 mg/dL Very high Standard traceable to the Center for Disease Conrtrol and Prevention (CDC) test method.Performed By: #### TSH3 wRFLX, LIPID, [id number] #### [facility] [address] [place] [address] USAVLDL WSOSYPKDDQA31 mg/dLNoYadkin Valley Community Hospital Physician GroupComment on above:Order Comment: FASTING YPerformed By: #### TSH3 wRFLX, LIPID, [id number] #### [facility] [address] [place] [id number] USASerum or plasma high density lipoprotein (HDL) cholesterol measurementOrdered By: Hardy Jones on 06-21-7766Rgltwwytnds in HDL [Mass/Vol]48 mg/aCIfvgkv26-60OxzfevugoSt. Anthony'S HospitalComment on above: HDL CHOL ATP-III CLASSIFICATION Cardiovascular RiskHDL > or equal to 60 mg/dL LOWHDL < 40 mg/dL HIGHOrder Comment: FASTING YResult Comment: HDL CHOL ATP-III CLASSIFICATION Cardiovascular Risk HDL > or equal to 60 mg/dL LOW HDL < 40 mg/dL HIGHPerformed By: #### TSH3 wRFLX, LIPID, [id number] #### [facility] [address] [place] [id number] USASerum or plasma total cholesterol/high density lipoprotein (HDL) cholesterol mass ratOrdered By: Hardy Jones on 03-10-2023 Cholesterol.total/Cholesterol in HDL [Mass ratio]3.0 {ratio}Normal<5.0St. Anthony'S HospitalComment on above:Order Comment: FASTING YPerformed By: #### TSH3 wRFLX, LIPID, [id number] #### [facility] [address] [place] [address] USAThyroid Stim Hormone w/Rflxon 46-97-0443Xjtcskf Stim Hormone w/Rflx1.79 u[iU]/mLNormal0.45-5.33The [facility] Physician GroupComment on above:Order Comment: FASTING YPerformed By: #### TSH3 wRFLX, LIPID, [id number] #### [facility] [address] [place] [address] USAThyrotropin [Units/volume] in Serum or PlasmaOrdered By: Hardy Jones on 34-49-4516RCY Qn1.79 m[IU]/L0.45-5.33St. Anthony'S HospitalTriglyceride [Mass/volume] in Serum or PlasmaOrdered By: Hardy Jones on 70-29-9086Rwfrflpwyrza [Mass/Vol]90 mg/dL0-149St. Anthony'S HospitalComment on above:TRIG ATP III CLASSIFICATIONTRIG less than 150 mg/dL NormalTRIG 150-199 mg/dL Borderline highTRIG 200-500 mg/dL High TRIG greater than 500 mg/dL Very highStandard traceable to the Center for Disease Conrtrol and Prevention (CDC) test method.Vitamin D 25 Hydroxy Totalon 31-50-4443Czutbiz D 25 Hydroxy Total27.0 ng/kAGnv87-527Ntk [facility] Physician GroupComment on above:Order Comment: FASTING YResult Comment: VITAMIN D STATUS 25(OH)VITAMIN D RANGE (ng/mL) Deficient <20 Insufficient 20 to <30 Sufficient 30 to 100 Reference: Nish MF,Frde NC, Chiquita ROBISON, et al. Evaluation,treatment, and prevention of vitamin D deficiency; an Endocrine Society clinical practice guideline. JCEM. 2010; 96(7):1911-30. PERFORMED BY: [place] [id number] PATHOLOGIST PAINTER AND DECORATOR NOHEMI HERNANDEZ M.D.Performed By: #### TSH3 wRFLX, LIPID, [id number] #### [place] [id number] USAVitamin D+Metabolites [Mass/volume] in Serum or Plasma Ordered By: Hardy Jones on 25-05-2053Zrbbica D+Metabolites [Mass/Vol] 27.0 ng/nZ57-162EwsodbgdtSt. Anthony'S HospitalComment on above:VITAMIN D STATUS 25(OH)VITAMIN D RANGE (ng/mL) Deficient <20 Insufficient 20 to <88Nowbxkrwaq12 to 100Reference: Nish MF,Fred NC, Chiquita ROBISON, et al. Evaluation,treatment, and prevention of vitamin D deficiency; an Endocrine Society clinical practice guideline. JCEM. 2010; 96(7):1911-30.CBC AUTO DIFF on 38-87-0904LCRZ #0.1 103/ulNormal0.0-0.1The [facility] CenterComment on above: Performed By: #### CBC #### [facility] [address] [address] [address] Jigna AcunaBasophils/100 WBC (Bld)0.5 %Normal0.2-2.0[facility] Comment on above:Performed By: #### CBC #### [facility] [address] [address] [address] Jigna Edmondson #0.6 103/ulNormal0.0-0.7The [facility] Medical CenterComment on above: Performed By: #### CBC #### [facility] [address] [address] [address] Jigna Batistaosinophils/100 WBC (Bld)6.2 %Normal0.9-7.0[facility] Comment on above:Performed By: #### CBC #### [facility] [address] [address] [address] Jigna Batistarythrocyte distribution width (RBC) [Ratio]14.5 %Dtmwdz91.0-15.0 The [facility] CenterComment on above:Performed By: #### CBC #### [facility] [address] [address] [address] Jigna AcunaHematocrit (Bld) [Volume fraction]36.1 %Tlvqsi54.0-48.0The Danay HospitalComment on above:Performed By: #### CBC #### [facility] [address] [place] [address] Dr. Jigna AcunaHemoglobin (Bld) [Mass/Vol]11.5 g/dLCritically low12.0-16.0The [facility] CenterComment on above:Performed By: #### CBC #### [facility] [address] [place] [address] Dr. Jigna Manrique #0.03 10e3/ulNormal0.00-0.03The [facility] Medical CenterComsheridan community hospital on above:Performed By: #### CBC #### [facility] [address] [place] [address] Dr. Jigna Manrique %0.3 %Normal0.0-0.5The [facility] Medical CenterComsheridan community hospital on above: Performed By: #### CBC #### [facility] [address] [place] [address] Dr. Jigna Cee #2.9 103/ulNormal1.2-3.8The [facility] CenterComment on above:Performed By: #### CBC #### [facility] [address] [place] [address] Dr. Jigna Kayehocytes/100 WBC (Bld)28.4 %Ghkyfg36.5-60.0The [facility] on above:Performed By: #### CBC #### [facility] [address] [place] [address] Dr. Jigna MoncadaUAL DIFF REQNONormalThe [facility] CenterComment on above: Performed By: #### CBC #### [facility] [address] [place] [address] Dr. Jigna Nino (RBC) [Entitic mass]27.1 jsZqaqgs16.7-34.0The [facility] CenterComment on above:Performed By: #### CBC #### [facility] [address] [place] [address] Dr. Jigna Nino (RBC) [Mass/Vol]31.9 g/gBTscjdh52.9-35.2The [facility] CenterComment on above:Performed By: #### CBC #### [facility] [address] [place] [address] Dr. Jigna NinoV (RBC) [Entitic vol]84.9 tFPafthe45.0-99.0The [facility] CenterComment on above:Performed By: #### CBC #### [facility] [address] [place] [address] Dr. Jigna Hallman #0.5 103/ulNormal0.3-0.8The [facility] CenterComment on above:Performed By: #### CBC #### [facility] [address] [place] [address] Dr. Jigna Cardenasocytes/100 WBC (Bld)4.9 %Normal1.7-12.0The [facility] Comment on above:Performed By: #### CBC #### [facility] [address] [place] [address] Dr. Jigna Harris #6.0 103/ulNormal1.4-6.5The [facility] CenterComment on above:Performed By: #### CBC #### [facility] [address] [place] [address] Dr. Jigna Santanautrophils/100 WBC (Bld)59.7 %Ztmmqy36.0-75.0The [facility] CenterComment on above:Performed By: #### CBC #### [facility] [address] [place] [address] Dr. Jigna Danielslet mean volume (Bld) [Entitic vol]9.8 fLNormal9.5-13.5The [facility] CenterComment on above:Performed By: #### CBC #### [facility] [address] [place] [address] Dr. Jigna AcunaPLT317 103/faXipreu118-818Pof [facility] CenterComment on above: Performed By: #### CBC #### [facility] [address] [place] [address] Dr. Jigna AcunaRBC4.25 106/ulNormal4.20-5.40The [facility] CenterComment on above:Performed By: #### CBC #### [facility] [address] [place] [address] [address] Jigna AcunaWBC10.0 103/ulNormal4.0-11.0The [facility] CenterComment on above:Performed By: #### CBC #### [facility] [address] [place] [address] [address] Jigna AcunaPROF CHEM 8 (BAS METB)on 97-19-0421Arfrv gap [Moles/Vol]12.2 mmol/LNormalThe [facility] CenterComment on above:Performed By: #### BMP #### [facility] [address] [place] [address] Dr. Jigna AcunaCalcium [Mass/Vol]8.2 mg/dLCritically low8.5-10.1The [facility] CenterComment on above:Performed By: #### BMP #### [facility] [address] [place] [address] Dr. Jigna AcunaChloride [Moles/Vol]99 mmol/SWnntqz28-696Fix [facility] Comment on above:Performed By: #### BMP #### [facility] [address] [place] [address] Dr. Jigna AcunaCO2 [Moles/Vol]28.7 mmol/WKboqhb91.0-32.0The [facility] Comment on above:Performed By: #### BMP #### [facility] [address] [place] [address] Dr. Jigna AcunaCreatinine [Mass/Vol]0.65 mg/dLNormal0.55-1.02The [facility] CenterComment on above:Performed By: #### BMP #### [facility] [address] [place] [address] Dr. Jigna BatistaGFR-AF BERMUDIAN>60Normal>=60The [facility] CenterComment on above:Performed By: #### BMP #### [facility] [address] [place] [address] Dr. Jigna BatistaGFR-NON AF BERMUDIAN>60Normal>=60[facility] HospitalComment on above:Performed By: #### BMP #### [facility] [address] [address] [address] Jigna AcunaGlucose [Mass/Vol]91 mg/nOMcbqjn72-810KytPromedica Defiance Regional Hospital Comment on above:Performed By: #### BMP #### [facility] [address] [place] [address] [address] Jigna AcunaPotassium [Moles/Vol]3.9 mmol/LNormal3.5-5.1[facility] Comment on above:Performed By: #### BMP #### [facility] [address] [address] [address] Jigna AcunaSodium [Moles/Vol]136 mmol/XNfvncb367-719Nlu [facility] Comment on above:Performed By: #### BMP #### [facility] [address] [address] [address] Jigna AcunaUrea nitrogen [Mass/Vol]14.0 mg/dLNormal7.0-18.0[facility] HospitalComment on above:Performed By: #### BMP #### [facility] [address] [place] [address] [address] Jigna Bray nitrogen/Creatinine [Mass ratio]21.5 mg/mgNormalThe [facility] CenterComment on above:Performed By: #### BMP #### [facility] [address] [address] [address] Jigna AcunaXR CHEST 2 Von 79-59-4504TI CHEST 2 VEXAM: XR CHEST 2 V HISTORY: COUGH position [...] Electronically authenticated by: ROBERT VIERA Date: 2021-09-21 01:28Normal The [facility] metabolic 2000 panelon 41-15-0482Cxfkk gap [Moles/Vol]18 mmol/LNormal9-18[facility] HospitalComment on above:Order Comment: Specimen Type: BLOOD SPECIMEN Ordering Facility: [facility] Address: [address] [place], [place] [address]Performed By: #### 74130-1 #### [facility] CLIA [id number] [address] [place] [address] [place] AMERICACalcium [Mass/Vol]8.5 mg/dLNormal 8.5-10.2[facility] HospitalComment on above:Order Comment: Specimen Type: BLOOD SPECIMEN Ordering Facility: [facility] Address: [address] [place], [place] [address]Performed By: #### 88342-1 #### [facility] CLIA [id number] [address] [place] [address] [place] AMERICAChloride [Moles/Vol]104 mmol/LNormal 97-105[facility] HospitalComment on above:Order Comment: Specimen Type: BLOOD SPECIMEN Ordering Facility: [facility] Address: [address] [place], [place] [address]Performed By: #### 48797-2 #### [facility] CLIA [id number] [address] [place] [address] [place] AMERICACO2 [Moles/Vol]18 mmol/PQrl96-79 [facility] HospitalComment on above:Order Comment: Specimen Type: BLOOD SPECIMEN Ordering Facility: [facility] Address: [address] [place], [place] [address]Performed By: #### 32857-3 #### [facility] CLIA [id number] [address] [place] [address] [place] AMERICACreatinine [Mass/Vol]0.81 mg/dL Normal0.58-0.96[facility] on above:Order Comment: Specimen Type: BLOOD SPECIMEN Ordering Facility: [facility] Address: [address] [place], [place] [address]Performed By: #### 56019-0 #### [facility] CLIA [id number] [address] [place] [address] [place] OF AMERICAESTIMATED GLOMERULAR FILTRATION RATE 101 mL/min/1.73m???Normal>=60[facility] on above:Order Comment: Specimen Type: BLOOD SPECIMEN Ordering Facility: [facility] Address: [address] [place], [place] [address]Result Comment: Estimated Glomerular Filtration Rate (eGFR) is calculated using the 2020 CKD-EPI cre atinine equation. This equation utilizes serum creatinine, sex, and age as parameters. The creatinine assay has traceable calibration to isotope dilution- mass spectrometry. Refer to KDIGO guidelines for clinical interpretation. In patients with unstable renal function, e.g. those with acute kidney injury, the eGFR may not accurately reflect actual GFR.Performed By: #### 49921-2 #### [facility] CLIA [id number] [address] [place] [address] [place] AMERICAGlucose [Mass/Vol]107 mg/dVZvpv75-50 [facility] on above:Order Comment: Specimen Type: BLOOD SPECIMEN Ordering Facility: [facility] Address: [address] [place], [place] [address]Result Comment: The [place] Diabetes Association (ADA) provides guidance for cutoff [...] Standards of Medical Care in Diabetes 2016, [place] [employer] Association. Diabetes Care. 2016.39(Suppl 1).Performed By: #### 67831-4 #### [facility] CLIA [id number] [address] [place] [address] [place] AMERICAPotassium [Moles/Vol]3.9 mmol/L Normal3.7-5.1[facility] HospitalComment on above:Order Comment: Specimen Type: BLOOD SPECIMEN Ordering Facility: [facility] Address: [address] [place], [place] [address]Performed By: #### 39195-1 #### [facility] CLIA [id number] [address] [place] [address] [place] AMERICASodium [Moles/Vol]140 mmol/LNormal 136-144[facility] HospitalComment on above:Order Comment: Specimen Type: BLOOD SPECIMEN Ordering Facility: [facility] Address: [address] [place], [place] [address]Performed By: #### 08806-1 #### [facility] CLIA [id number] [address] [place] [address] [place] AMERICAUrea nitrogen [Mass/Vol]15 mg/dL Normal7-21[facility] HospitalComment on above:Order Comment: Specimen Type: BLOOD SPECIMEN Ordering Facility: [facility] Address: [address] [place], [place] [address]Performed By: #### 20258-7 #### [facility] CLIA [id number] [address] [place] [address] [place] OF AMERICACBC panel Auto (Bld)on 09-19-2021 Erythrocyte distribution width (RBC) [Ratio]14.2 %Oacjwt09.5-15.0[facility] HospitalComment on above:Order Comment: Specimen Type: BLOOD SPECIMEN Ordering Facility: [facility] Address: [address] [place], [place] [address]Performed By: #### 30086-3 #### [facility] CLIA [id number] [address] [place] [address] [place] OF AMERICAHematocrit (Bld) [Volume fraction] 36.8 %Xkbpss11.0-46.0[facility] HospitalComment on above:Order Comment: Specimen Type: BLOOD SPECIMEN Ordering Facility: [facility] Address: [address] [place], [place] [address]Performed By: #### 28779-0 #### [facility] CLIA [id number] [address] [place], [place] [address]Hemoglobin (Bld) [Mass/Vol]12.1 g/dL Himbto11.5-15.5Fairselect medical [facility], avon HospitalComment on above:Order Comment: Specimen Type: BLOOD SPECIMEN Ordering Facility: [facility] Address: [address] [place], [place] [address]Performed By: #### 68391-3 #### [facility] CLIA [id number] [address] [place], [place] [address]H (RBC) [Entitic mass]27.9 pg Aazwdp01.0-34.0[facility] HospitalComment on above:Order Comment: Specimen Type: BLOOD SPECIMEN Ordering Facility: [facility] Address: [address] [place], [place] [address]Performed By: #### 28896-2 #### [facility] CLIA [id number] [address] [place], [place] [address]MCHC (RBC) [Mass/Vol]32.9 g/dLNormal 30.5-36.0[facility] HospitalComment on above:Order Comment: Specimen Type: BLOOD SPECIMEN Ordering Facility: [facility] Address: [address] [address] [place], [place] [address]Performed By: #### 00773-0 #### [facility] CLIA [id number] [address] [place], [place] [address]V (RBC) [Entitic vol]84.8 fLNormal 80.0-100.0[facility] HospitalComment on above:Order Comment: Specimen Type: BLOOD SPECIMEN Ordering Facility: [facility] Address: [address] [place], [place] [address]Performed By: #### 53645-3 #### [facility] CLIA [id number] [place] [address] [place] OF AMERICANucleated RBC (Bld) [#/Vol]10*3/uL Normal<0.01[facility] HospitalComment on above:Order Comment: Specimen Type: BLOOD SPECIMEN Ordering Facility: [facility] Address: [address] [place], [place] [address]Performed By: #### 20106-6 #### [facility] CLIA [id number] [address] [place] [address] [place] AMERICAPlatelet mean volume (Bld) [Entitic vol]10.1 fLNormal9.0-12.7[facility] HospitalComment on above:Order Comment: Specimen Type: BLOOD SPECIMEN Ordering Facility: [facility] Address: [address] [place], [place] [address]Performed By: #### 26389-5 #### [facility] CLIA [id number] [address] [place] [address] [place] AMERICAPlatelets (Bld) [#/Vol]349 10*3/uL Cbfuak400-515Qwutzkby HospitalComment on above:Order Comment: Specimen Type: BLOOD SPECIMEN Ordering Facility: [facility] Address: [address] [place], [place] [address]Performed By: #### 84065-8 #### [facility] CLIA [id number] [address] [place] [address] [place] AMERICARBC (Bld) [#/Vol]4.34 10*6/uLNormal 3.90-5.20[facility] HospitalComment on above:Order Comment: Specimen Type: BLOOD SPECIMEN Ordering Facility: [facility] Address: [address] [place], [place] [address]Performed By: #### 87637-1 #### [facility] CLIA [id number] [address] [place] [address] [place] AMERICAWBC (Bld) [#/Vol]14.60 10*3/uLHigh 3.70-11.00[facility] HospitalComment on above:Order Comment: Specimen Type: BLOOD SPECIMEN Ordering Facility: [facility] Address: [address] [place] [address] [place] [address]Ftgvbrseo By: #### 19932-0 #### [facility] [id number] [address]CNNetta [id number] ID: [id number] Author: Rob Scott PA-C Service: Cardiac Surgery Author Type: Physician Nature Photographer Type: Discharge Summary Filed: 09/19/2021 9:31 AM [...] of Thoracic Surgery Discharge Summary (Template ID [id number]) PATIENT NAME: Sandee Null ADMISSION DATE: 09/18/2021 [...] major fissure on a chest CT in [facility] in 09/2015. She was unaware that she [...] 6-9, and Chest tube placement x 1 (#24-Serbian) Hospital Course: * How was the Reason for Hospitalization Addressed: Sandee Null is a very pleasant 31-year old female who is a former 10+ pack year smoker and who has severe asthma. She was found to have a 4 mm left lower lobe lung nodule near the left major fissure on a chest CT in [facility] in 09/2015. She was unaware that she [...] 6-9, and Chest tube placement x 1 (#24-Serbian) on 09/18/2021. She was subsequently transferred to the PACU and th (more content not included)...[employer] 96-83-2963QCILVLN [facility] ID: [id number] Author: Ronda Mendieta APRN.JONA Service: Pain Management [...] nRBC <0.01 k/uL <0.01 SIGNATURE: Ronda Mendieta APRN.GUSSET FOLDER PATIENT NAME: Sandee Null DATE: September 19, 2021 TIME: 09:40 AM PAGER/CONTACT #: [facility] [phone] [facility] [id number] PROGHNO ID: [id number] Author: Mary Clark RN Service: Nursing Author Type: Registered Nurse Type: Nursing Progress Note Filed: 09/19/2021 1:45 PM Note Text: Nursing Progress Note Patient Name: Sandee Null Patient Location: [place] [address] [address] Daily Note: see NPR for full assessment 0830 - PA Altemara up to floor to see patient, CT pulled 1330 - Went through discharge instructions, ALL aspects of care discussed, ALL questions and concerns addressed This note was completed by: Mary ClarkAvera St. [facility] [id number] HEALTHHNO ID: [id number] Author: Paz Frazier RT(R) Service: Radiology Author [...] IV DATA: Not applicable SIGNED BY: Paz Frazier RT(R) September 18, 2021 7:10 [facility] POSTPROC EVALon [id number] POSTPROC EVALHNO ID: [id number] Author: Eliezer Lr MD Service: Anesthesiology Author Type: Anesthesiologist Type: Anesthesia Postprocedure Evaluation Filed: 09/18/2021 2:36 PM Note Text: POST ANESTHESIA EVALUATION NOTE : 1990 Procedure Summary Date: 09/18/21 Room / Location: [place] [address] / OR Anesthesia Start: 737 Anesthesia Stop: [...] September 18, 2021 TIME: 2:36 PM CSN: [id number] State Hospital PRE-OPon [id number] PRE-OPHNO ID: [id number] Author: Pj Rendon DO Service: Anesthesiology Author Type: Resident Type: Anesthesia Preprocedure Evaluation Filed: 09/18/2021 7:16 AM Note Text: Attestation signed by Eliezer Lr MD at 09/18/2021 9:13 AM [facility] STAFF PHYSICIAN NOTE OF PERSONAL INVOLVEMENT IN [...] and consent discussed: yes. Patient / Responsible Alliance Party agrees to proceed: yes Patient / [...] September 18, 2021 TIME: 7:06 AM CSN: [id number] [facility] OP NOTon 09-18-2021 BRIEF OP NOTHNO ID: [id number] Author: Donald Huang MD Service: Thoracic Surgery Author Type: Physician Type: Brief Op Note Filed: 09/18/2021 10:16 AM Note Text: BRIEF OPERATIVE / PROCEDURE NOTE LOG ID: [id number] SURGERY/PROCEDURE DATE: 09/18/2021 INCISION/PROCEDURE START TIME: 8:49 AM INCISION CLOSE/PROCEDURE END TIME: SURGEON(S)/PROCEDURALIST(S) AND MILK INSPECTOR(S): Surgeon(s) and Role: * Donald Huang MD - Primary Physician Nature Photographer: Erick Trujillo PA-C SURGERY/PROCEDURE(S): 1. Left robotic-assisted lower lobe wedge resection x 1. 2. Left cryo-analgesia procedure, interspaces 6-9. (total time 20 minutes) 3. Chest tube placement x 1 (#24-Serbian). ANESTHESIA: General FINDINGS: 1. Firm, irregular mass in the basilar segment of the left lower lobe. ESTIMATED BLOOD LOSS: < 5 mL. SPECIMENS: 1. Left lower lobe wedge resection. COMPLICATIONS: None. PRE-OP/PRE-PROCEDURE DIAGNOSIS: 1. Left lower lobe lung nodule. POST-OP/POST-PROCEDURE DIAGNOSIS: 1. Necrotic granuloma in the left lower lobe. SIGNATURE: Donald Huang MD PATIENT NAME: Sandee Null DATE: September 18, 2021 TIME: 10:14 AMNormalMonson Developmental CenterBasi metabolic 2000 panelon 09-18-2021 Anion gap [Moles/Vol]12 mmol/LNormal9-18[facility] HospitalComment on above:Order Comment: Specimen Type: BLOOD SPECIMENOrdering Facility: [facility] Address:[address] [place], [place] [address]Performed By: #### 19000-3 ####[facility]ORYCLIA [id number] [place] [address] [place] AMERICACalcium [Mass/Vol]8.2 mg/dLLow8.5-10.2FMcLean HospitalComment on above:Order Comment: Specimen Type: BLOOD SPECIMENOrdering Facility: [facility] Address:[address] [place], [place] [address]Performed By: #### 76390-8 ####[facility]ORYCLIA [id number] [place] [id number] [place] AMERICAChloride [Moles/Vol] 104 mmol/RZjuqwp88-017Pxiwtblh HospitalComment on above:Order Comment: Specimen Type: BLOOD SPECIMENOrdering Facility: [facility] Address:[address] [place], [place] [address]Performed By: #### 14682-8 ####[facility] [id number] [place] [id number] [place] AMERICACO2 [Moles/Vol]21 mmol/PXzf62-94Vcwbxpyg HospitalComment on above:Order Comment: Specimen Type: BLOOD SPECIMENOrdering Facility: [facility] Address:[address] [place], [place] [address]Performed By: #### 71277-2 ####[facility]ORYCLIA [id number] [place] [address] [place] AMERICACreatinine [Mass/Vol]0.72 mg/dLNormal0.58-0.96 [facility] on above:Order Comment: Specimen Type: BLOOD SPECIMENOrdering Facility: [facility] Address:[address] [place], [place] [address]Performed By: #### 01733-9 ####[facility]ORYCLIA [id number] [address] STATES OF [facility] ESTIMATED GLOMERULAR FILTRATION UNRC562 mL/min/1.73m???Normal>=60[facility] on above:Order Comment: Specimen Type: BLOOD SPECIMENOrdering Facility: [facility] Address:[address] [place], [place] [address]Result Comment: Estimated Glomerular Filtration Rate (eGFR) is calculated using the 2020 CKD-EPI creatinine equation. This equation utilizes serum creatinine, sex, and age as parameters. The creatinine assay has traceable calibration to isotope dilution-mass spectrometry. Refer to KDIGO guidelines f or clinical interpretation. In patients with unstable renal function, e.g. those with acute kidney injury, the eGFR may not accurately reflect actual GFR. Performed By: #### 72720-7 ####[facility]ORYCLIA [id number] [place] [address] [place] AMERICAGlucose [Mass/Vol]130 mg/dL Ixko72-26FmjecaboCape Cod Hospital on above:Order Comment: Specimen Type: BLOOD SPECIMENOrdering Facility: [facility] Address:[address] [place], [place] [address]Result Comment: The [place] Diabetes Association (ADA) provides guidance for cutoff [...] Standards of Medical Care in Diabetes 2016, [place] Diabetes Association. Diabetes Care. 2016.39(Suppl 1).Performed By: #### 78850-9 ####[facility]ORYCLIA [id number] [place] [address] [place] AMERICAPotassium [Moles/Vol]4.2 mmol/LNormal3.7-5.1[facility] HospitalComment on above:Order Comment: Specimen Type: BLOOD SPECIMENOrdering Facility: [facility] Address:[address] [place], [place] [address]Performed By: #### 90243-3 ####[facility]ORYCLIA [id number] [place] [address] [place] AMERICASodium [Moles/Vol]137 mmol/ZTrnidt244-293Qaojaoqg HospitalComment on above:Order Comment: Specimen Type: BLOOD SPECIMENOrdering Facility: [facility] Address:[address] [place], [place] [address]Performed By: #### 63756-9 ####[facility]ORYCLIA [id number] [place] [address] [place] AMERICAUrea nitrogen [Mass/Vol]12 mg/dLNormal7-21Monson Developmental CenterComment on above:Order Comment: Specimen Type: BLOOD SPECIMENOrdering Facility: [facility] Address:[address] [place], [place] [address]Performed By: #### 73308-3 ####[facility]ORYCLIA [id number] [place] [address] [place] AMERICACBC panel Auto (Bld)on 49-23-1746Iknnlpvrabd distribution width (RBC) [Ratio]14.0 %Ogmhjy25.5-15.0 [facility] on above:Order Comment: Specimen Type: BLOOD SPECIMEN Ordering Facility: [facility] Address: [address] [place], [place] [address]Performed By: #### 07111-8 #### [facility] CLIA [id number] [address] [place] [address] [place] AMERICAHematocrit (Bld) [Volume fraction] 36.5 %Jtwzfu45.0-46.0Emeigh HospitalComment on above:Order Comment: Specimen Type: BLOOD SPECIMEN Ordering Facility: [facility] Address: [address] [place], [place] [address]Performed By: #### 48012-9 #### [facility] CLIA [id number] [address] [address]ETHemoglobin (Bld) [Mass/Vol]12.0 g/dL Llfhfu13.5-15.5[facility] HospitalComment on above:Order Comment: Specimen Type: BLOOD SPECIMEN Ordering Facility: [facility] Address: [address] [place], [place] [address]Performed By: #### 11059-4 #### [facility] CLIA [id number] [address] [place] [address] (RBC) [Entitic mass]27.3 pg Gqzlgt98.0-34.0[facility] HospitalComment on above:Order Comment: Specimen Type: BLOOD SPECIMEN Ordering Facility: [facility] Address: [address] [place], [place] [address]Performed By: #### 86700-6 #### [facility] CLIA [id number] [address] [place], [place] [address]MCHC (RBC) [Mass/Vol]32.9 g/dLNormal 30.5-36.0[facility] HospitalComment on above:Order Comment: Specimen Type: BLOOD SPECIMEN Ordering Facility: [facility] Address: [address] [place], [place] [address]Performed By: #### 94143-9 #### [facility] CLIA [id number] [address] [place], [place] [address]V (RBC) [Entitic vol]83.0 fLNormal 80.0-100.0[facility] HospitalComment on above:Order Comment: Specimen Type: BLOOD SPECIMEN Ordering Facility: [facility] Address: [address] [place], [place] [address]Performed By: #### 25359-9 #### [facility] CLIA [id number] [address] [place] [address] RBC (Bld) [#/Vol]10*3/uL Normal<0.01[facility] HospitalComment on above:Order Comment: Specimen Type: BLOOD SPECIMEN Ordering Facility: [facility] Address: [address] [place], [place] [address]Performed By: #### 47982-8 #### [facility] CLIA [id number] [address] [place] [address] [place] AMERICAPlatelet mean volume (Bld) [Entitic vol]10.6 fLNormal9.0-12.7[facility] HospitalComment on above:Order Comment: Specimen Type: BLOOD SPECIMEN Ordering Facility: [facility] Address: [address] [place], [place] [address]Performed By: #### 79331-8 #### [facility] CLIA [id number] [address] [place] [address] [place] AMERICAPlatelets (Bld) [#/Vol]304 10*3/uL Zvytkc386-998Zygyqbyu HospitalComment on above:Order Comment: Specimen Type: BLOOD SPECIMEN Ordering Facility: [facility] Address: [address] [place], [place] [address]Performed By: #### 89794-5 #### [facility] CLIA [id number] [address] [place] [address] [place] AMERICARBC (Bld) [#/Vol]4.40 10*6/uLNormal 3.90-5.20[facility] HospitalComment on above:Order Comment: Specimen Type: BLOOD SPECIMEN Ordering Facility: [facility] Address: [address] [place], [place] [address]Performed By: #### 29012-6 #### [facility] CLIA [id number] [address] [place] [address] [place] AMERICAWBC (Bld) [#/Vol]11.34 10*3/uLHigh 3.70-11.00[facility] HospitalComment on above:Order Comment: Specimen Type: BLOOD SPECIMEN Ordering Facility: [facility] Address: [address] [place] [address]Performed By: #### 75028-5 #### [facility] CLIA [id number] [address] [address]CONFIRM BLOOD TYPEon 35-60-8236OYAK NormalEmeigh HospitalComment on above:Order Comment: Specimen Type: BLOOD SPECIMENOrdering Facility: [facility] Address:[address] [place], [place] [address]Performed By: #### CONABO ####[facility] BANKCLIA [id number] [address]ETRh Nom (Bld)PositiveNormalEmeigh HospitalComment on above:Order Comment: Specimen Type: BLOOD SPECIMENOrdering Facility: [facility] Address:[address] [place], [place] [address]Performed By: #### CONABO ####[facility] BANKCLIA [id number] [address]REETHISTORY PHYSICALon [id number] PHYSICALHNO ID: [id number] Author: Erick Trujillo PA-C Service: Cardiac Surgery Author Type: Physician Nature Photographer Type: HANDP Filed: 09/18/2021 7:31 AM Note [...] Null DATE: September 18, 2021 TIME: 7:31 AMNormalEmeigh HospitalMagnesium SerPl-mCncon 59-09-5288Mlbweuvpb [Mass/Vol]1.8 mg/dLNormal1.7-2.3Fairselect medical clevel[facility], avon HospitalComment on above:Order Comment: Specimen Type: BLOOD SPECIMEN Ordering Facility: [facility] Address: [address] [place], [place] [address]Performed By: #### 02821-8 #### [facility] [id number] [address] [place] [address] PROGodisha [id number] PROGHNO ID: [id number] Author: Mary Clark RN Service: Nursing Author Type: Registered Nurse Type: Nursing Progress Note Filed: 09/18/2021 4:56 PM Note Text: Nursing Progress Note Patient Name: Sandee Null [facility] Transfer Note: Patient transferred into room/unit PK232 in stable condition. Actions taken: No futher actions taken at this time. 1645 - patient up to bathroom, voided This note was completed by: Mary ClarkHahnemann Hospital HNO ID: [id number] Author: Leah Caballero RN Service: Nursing Author Type: Registered Nurse Type: Nursing Progress Note Filed: 09/18/2021 7:13 AM Note Text: Left single shot paravertebral neve blocks x2 Dr. Grover Patient verbalizes understanding. Tolerated procedure well report given to primary RN.[facility] N[facility]SING [facility]NO ID: [id number] Author: Sandra Alcala RN Service: ? Author [...] REFERRAL (RECOMMENDATION): None Electronically Signed By: Sandra LiuLawrence Memorial HospitalOPERATIVE NOon [id number] [facility]OSPITALO ID: [id number] Author: Donald Huang MD Service: Thoracic Surgery Author Type: Physician Type: Operative Report Filed: 09/18/2021 10:41 AM Note Text: DATE: SEPTEMBER 18, 2021 NAME: SANDEE NULL MR# [id number] PREOPERATIVE DIAGNOSIS: 1. Left lower lobe lung nodule. POSTOPERATIVE DIAGNOSIS: 1. Necrotic granuloma in the left lower lobe. PROCEDURES PERFORMED: 1. Left robotic-assisted lower lobe wedge resection x 1. 2. Left cryo-analgesia procedure, interspaces 6-9. (total time 20 minutes) 3. Chest tube placement x 1 (#24-Serbian). SURGEON: Donald Huang Jr., M.D. RESIDENT SURGEON: NONE. (there was no qualified resident to assist with this operation). MILK INSPECTOR: Erick Trujillo PA-C ANESTHESIA: General endotracheal anesthesia. [...] major fissure on a chest CT in [facility] in 09/2015. She was unaware that she [...] minutes) 3. Chest tube placement x 1 (#24-Serbian). The physician assistants participated in transporting the [...] difficulty. The patient tolera (more content not included)...[facility] PATHOLOGYon 05-24-7134MPBASPTG 1:[facility] HospitalComment on above:Order Comment: Specimen Type: TISSUE SPECIMEN Ordering Facility: [facility] Address: [address] [place] [id number] Comment: Within the necrosis, a GMS stain shows small round to oval fungal yeasts with morphologic features that fit with Histoplasma. An AFB stain is negative. Addendum electronically signed by Milo Gan MD on 09/21/2021 at 12:08 PMPerformed By: #### S #### [facility] CLIA [id number] [address] [place] [address] LABORATORY CLIA [id number] [address]CASE REPORTNoLawrence F. Quigley [facility] Comment on above:Order Comment: Specimen Type: TISSUE SPECIMEN Ordering Facility: [facility] Address: [address] [place] [id number] Comment: Surgical Pathology Report Case: [id number] Authorizing Provider: Donald Huang MD Collected: 09/18/2021 09:11 AM Ordering Location: [facility] Received: 09/18/2021 09:31 AM Operating Room Pathologist: Milo Gan MD Intraop: Willem Chavez MD Specimen: LUNG WEDGE RESECTION LEFT, Left Lower Lobe WedgePerformed By: #### S #### [facility] CLIA [id number] [address] [place], [place] [address] [facility] CLIA [id number] [address] AMERICACLINICAL HISTORYLOWER LOBE WEDGE RESECTION, POSS LEFT LOWER LOBE SEGMENTECTOMY, POSS LEFT LOWER LOBECTOMY, MEDIASTINAL LYMPH NODE DISSECTION; Atricure cryoblationNorthampton State Hospital Comment on above:Order Comment: Specimen Type: TISSUE SPECIMEN Ordering Facility: [facility] Address: [address] [place], [place] [address]Performed By: #### S #### [facility] CLIA [id number] [address] [place] [address] LABORATORY CLIA [id number] [address] [place], [place] [address]DIAGNOSIS COMMENTSpecial stains for microorganisms (AFB and GMS) have been requested and will be reported in an addendum.[facility] HospitalComment on above:Order Comment: Specimen Type: TISSUE SPECIMEN Ordering Facility: [facility] Address: [address] [place], [place] [address]Performed By: #### S #### [facility] CLIA [id number] [address] [place] [address] LABORATORY CLIA [id number] [address] [place], [place] [address]FINAL DIAGNOSISNorthampton State HospitalComment on above:Order Comment: Specimen Type: TISSUE SPECIMEN Ordering Facility: [facility] Address: [address] [place], [place] [address] Comment: A. Lung, left lower lobe, wedge resection: - Necrotizing granuloma (See comment). Performed By: #### S #### [facility] CLIA [id number] [address] [place] [address] LABORATORY CLIA [id number] [address] [place], [place] [address]FINTN PERFORMING LABNoBayRidge Hospital HospitalComment on above:Order Comment: Specimen Type: TISSUE SPECIMEN Ordering Facility: [facility] Address: [address] [place] [address]Result Comment: Diagnostic interpretation performed at [facility], [address] [place], [place] [address] CLIA# [id number] Electronic Pagination System Operator: Tyler Simon M.D.Performed By: #### S #### [facility] CLIA [id number] [address] [place] [address] LABORATORY CLIA [id number] [address] [place], [place] [address]GROSS DESCRIPTIONNorthampton State HospitalComment on above:Order Comment: Specimen Type: TISSUE SPECIMEN Ordering Facility: [facility] Address: [address] [place], [place] [address]Result Comment: A. LUNG WEDGE RESECTION LEFT. Received fresh designated left lower lobe wedge is a portion of lung that measures 7 x 6 x 1.7 cmweighs 13 g. The parenchymal margin is inked blue (0.3 cm staple line). Sectioning through the longreveals a martinez-doan nodule that measures 0.6 x 0.6 x 0.6 cm. The nodule is located 0.6 cm from the parenchymal margin. The remaining lung parenchyma is pink-martinez and spongy. Compliance Associate sections aresubmitted as follows: A1 entire nodule with parenchymal margin perpendicular for frozen section A2 uninvolved lung parenchyma WE September 18, 2021 11:03 AM Intraoperative diagnosis performed at [facility], [address] [place], [place] [address]Performed By: #### S #### [facility] CLIA [id number] [address] [place] [address] LABORATORY CLIA [id number] [address] [place], [place] [address]INTRAOPERATIVE DIAGNOSISNormal Emeigh HospitalComment on above:Order Comment: Specimen Type: TISSUE SPECIMEN Ordering Facility: [facility] Address: [address] [place] [id number] Comment: A. LUNG WEDGE RESECTION LEFT. A1 necrotic granuloma in background of lymphocytes and plasma cells (). WE September 18, 2021 11:04 AM Intraoperative diagnosis performed at [facility], [address] [place], [place] [address]Performed By: #### S #### [facility] CLIA [id number] [address] [place] [address] [place] [id number] [facility] CLIA [id number] [address] [place], [place] [address]XR CHEST 1V FRONTALon [id number] CHEST 1V FRONTAL* * *Final Report* * * DATE OF [...] Patchy opacities in the lung bases bilaterally Beveler: PSCB Transcribe Date/Time: Sep 19 2021 7:07A Dictated by : EDWIGE MENA MD This examination was interpreted and the report reviewed and electronically signed by: EDWIGE MENA MD on Sep 19 2021 7:09AM EST [id number] Memorial HospitalXR CHEST 1V FRONTAL* * *Final Report* * * DATE OF [...] AND LEFT SUPRAHILAR INFILTRATES, NEW SINCE 08/13/2021. Beveler: PSCB Transcribe Date/Time: Sep 18 2021 12:30P Dictated by : FRANCIA RUVALCABA MD This examination was interpreted and the report reviewed and electronically signed by: FRANCIA RUVALCABA MD on Sep 18 2021 12:33PM EST [id number] Specialty Hospital [id number] Visit (FVTHOR) SANDEE NULL ([id number]) 1990 F Date Time Provider Department 08/22/21 [...] major fissure on a chest CT in [facility] in 09/2015. She was unaware that she [...] mg intramuscularly at bedtime as needed. - Woyverad-Lg-Dqk-Fe-FA tab Take 1 tablet by mouth. - [...] is no right CVA (more content not included)...[facility] [phone] Telephone (LocalLux) SANDEE NULL ( ) 1990 F Date [...] left lung [R91.1] Order(s):CONSULT TO CARDIOTHORACIC SURGERY [[id number]] Order #: [id number]: 1 Prescriptions as of 08/15/2021 - famotidine (PEPCID) 10 mg tablet 20 mg. - albuterol HFA (PROVENTIL HFA, VENTOLIN HFA) 90 mcg/actuation inhaler Inhale 2 Puffs as instructed every 6 hours as needed. - budesonide-formoterol (SYMBICORT) 160-4.5 mcg/actuation inhaler Inhale 2 Puffs as instructed. - EPINEPHrine (EPIPEN) 0.3 mg/0.3 mL auto-injector Inject 0.3 mg intramuscularly at bedtime as needed. - Aduwcuoo-Ko-Bee-Fe-FA tab Take 1 tablet by mouth. - promethazine (PHENERGAN) 12.5 mg tablet Take 12.5 mg by mouth three times daily as needed. - tiotropium (SPIRIVA WITH HANDIHALER) 18 mcg inhalation capsule Inhale 1 capsule as instructed once daily. Use with HandiHaler. Problem List As Of Date: 08/15/2021 (None) Encounter Status:Closed by RADHA VANG on 08/15/21[facility] Telephone (IRRFV) MAHSASANDEE ([id number]) 1990 F Date Time Provider Department 08/15/21 [...] mg intramuscularly at bedtime as needed. - Nfmmudua-Ce-Eyz-Fe-FA tab Take 1 tablet by mouth. - promethazine (PHENERGAN) 12.5 mg tablet Take 12.5 mg by mouth three times daily as needed. - tiotropium (SPIRIVA WITH HANDIHALER) 18 mcg inhalation capsule Inhale 1 capsule as instructed once daily. Use with HandiHaler. Problem List As Of Date: 08/15/2021 (None) Encounter Status:Closed by HANNAH MYERS on 08/15/21[facility] [id number] (GEOVANY) SANDEE NULL ( ) 1990 F [...] the lung nodule will take place at [facility] because she lives closer to that hospital. She also says that she is having uncontrolled asthma symptoms. I have asked for her to follow up in pulmonary clinic so that we can discuss this more. She also tells me that she has been unable to get her chest CT from [facility] in [place] from the time that she was there [...] Diagnosis:Lung nodules [R91.8] Order(s):CT CHEST WO IVCON [[id number]] Order #: [id number] FUTURE IMAGING GUIDED BIOPSY LUNG [[id number]] Order #: [id number] Prescriptions as of 08/14/2021 - famotidine (PEPCID) 10 mg tablet 20 mg. - albuterol HFA (PROVENTIL HFA, VENTOLIN HFA) 90 mcg/actuation inhaler Inhale 2 Puffs as instructed every 6 hours as needed. - budesonide-formoterol (SYMBICORT) 160-4.5 mcg/actuation inhaler Inhale 2 Puffs as instructed. - EPINEPHrine (EPIPEN) 0.3 mg/0.3 mL auto-injector Inject 0.3 mg intramuscularly at bedtime as needed. - Kmaocehp-Gu-Deu-Fe-FA tab Take 1 tablet by mouth. - promethazine (PHENERGAN) 12.5 mg tablet Take 12.5 mg by mouth three times daily as needed. - tiotropium (SPIRIVA WITH HANDIHALER) 18 mcg inhalation capsule Inhale 1 capsule as instructed once daily. Use with HandiHaler. 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 - albuterol HFA (PROVENTIL HFA, VENTOLIN HFA) 90 mcg/actuation inhaler Inhale 2 Puffs as instructed every 6 hours as needed. - budesonide-formoterol (SYMBICORT) 160-4.5 mcg/actuation inhaler Inhale 2 Puffs as instructed. - EPINEPHrine (EPIPEN) 0.3 mg/0.3 mL auto-injector Inject 0.3 mg intramuscularly at bedtime as needed. - Mkdkywiu-Qv-Hlh-Fe-FA tab Take 1 tablet by mouth. - promethazine (PHENERGAN) 12.5 mg tablet Take 12.5 mg by mouth three times daily as needed. - tiotropium (SPIRIVA WITH HANDIHALER) 18 mcg inhalation capsule Inhale 1 capsule as instructed once daily. Use with HandiHaler. Problem List As Of Date: 04/06/2021 (None) Encounter Status:Closed by RADHA VANG on 04/06/21[facility] ([facility])on [id number]-CoV-2 (COVID-19) RNA SULLY+probe Ql (Unsp spec)Not detectedNormalNOT DETECTEDThe [facility] CenterComment on above:Result Comment: This test is not yet approved or cleared by the [place] FDA. When there are no FDA-approved or cleared tests available, and other criteria are met, FDA can make tests available under an emergency access mechanism called an Emergency Use Authorization (EUA). The EUA for this test is supported by the Bobbin Dumper of Health and Human Service's (HHS's) declaration [...] of clinical signs and symptoms consistent with SARS-CoV-2.Performed By: #### MONIE, CVDROCAELS #### [facility] [address] [place] [address] Sofy TaylorYMPTOMATIC COVID-19 ANTIGENon [id number] StatementSEE BELOW NormalThe [facility] on above:Result Comment: This test has not been FDA [...] declaration is terminated or authorization is revoked sooner.Performed By: #### REMICHAEL, CVDROCAELS #### [facility] [address] [place] [address] Sofy Knutson-CoV-2 (COVID-19) RNA SULLY+probe Ql (Unsp spec)NegativeNormal NEGATIVEThe St. Charles Hospitalment on above:Result Comment: CONFIRMATION BY PCR PENDING PER CDC GUIDELINES/ SYMPTOMATIC PATIENT.Performed By: #### MONIE, CVDAGS #### [facility] [address] [place], [place] [id number] Sofy CareyLeonie [id number] (AKPRAD) SANDEE NULL ( ) 1990 F [...] [95] Visit Diagnosis:Lung nodules [R91.8] Order(s):CT CHEST [facility] [[id number]] Order #: [id number] FUTURE Prescriptions as of 04/21/2020 Sig: FAMOTIDINE [...] Encounter Status:Closed by RADHA VANG MD on 04/21/20[facility]CNPNon [id number] (AVXRCT) SANDEE NULL ([id number]) 1990 F Date Time Provider Department 04/14/20 MISA PINZON (CT) AVXRCT During your visit today, we recorded the following information about you: Misa Dariana RAF Pinzon CT 04/14/2020 4:22 PM Signed Appt line [...] Date Reviewed: 04/04/2020 Reviewed by: Radha Byrd) Ceira - Fully Assessed Reason for Visit: Scans [...] (None) Encounter Status:Closed by MISA FLORIAN on 04/14/20[facility] Depart Summaryon [id number] SummaryEMERGENCY DEPARTMENT DISCHARGE SUMMARYPATIENT NAME:SANDEE NULL MRN: [id number]: 27 Years SEX: Female PHONE:[id number]: 04/03/2017 9:44 PM : 1990 ATTENDING PHYSICIAN:Ti Odell PCP: Vladimir Estrada DO CHIEF COMPLAINT: Asthma Flare-up Allergies No Allergies DocumentedProblems Active Asthma DISCHARGE DIAGNOSIS: DISCHARGE INSTRUCTIONS: Asthma, Adult, Lpuu-at-Tmlr HISTORY OF PRESENT ILLNESS:The patient is a 28-year-old female past medical history significant for asthma, right ventricular hypertrophy, congenital cardiomyopathy. Patient is in ED withcomplaint of shortness of breath. Patient states that it is acutely worsened within the last hour, however she has been in [place] for a business trip for several days [...] her asthma, she denies hemoptysis, abdominal pain, historyof blood clot in her leg or in her lungs. Social history : Nonsmoker MEDICAL DECISION MAKIN-year-old female presents to the emergency department for asthma exacerbation as described above. I alsoam concerned for pneumonia at this time, we'll obtain a 2 view chest x- ray. Patient was given Solu-Medrol as well as albuterol treatments in the emergency department. Chest x-rays read as negative for any acute cardiopulmonary findings no sign of pneumonia. After albuterol treatments 2 times and IMSolu-Medrol the patient felt much improved. She is [...] Refills: 0.budesonide-formoterol (Symbicort) Inhalation Twice a day.PredniSONE (predni SONE 20 mg oral tablet) 3 PO Daily [...] EXAM: 04/03/2017 10:26 PMHISTORY: Cough, asthma attack. Shortof breath with cough. Chest tightness today, pain level = 8/10COMPARISON: NONEFindings: The lungs are clear. Heart size, mediastinum, and pulmonary vasculature are within normal limits.Impression:NegativeTavo Santamaria thanks you for the opportunity to care for your patient. Workstation ID: [id number] FOLLOW UP:With: Address: When: Follow up with primary care provider Within Follow-up as needed With: Address: When: No PCP Physician, Family Practice, Internal Medicine Within Follow-up as neededNormalOhiohealth Southeastern Medical CenterED [facility] Rizwanaysha [id number] [place] [address] Emergency Department Discharge Instructions SANDEE NULL , Please provide this information to your Primary Care/Specialist Name : SANDEE NULL Current Date : 04/03/2017 23:29:29DOB : 1990 12:00 PM Primary Care Physician : Vladimir Estrada DO Diagnosis : Follow-Up Instructions:RON NULL has been given these follow-up instructions: Provider: Specialty: Address: Date: No PCP PhysicianFamily Practice; Internal Medicine Follow-up as needed Provider: Specialty: Address: Date: Follow up with primary care provider Follow-up as needed Laboratory Orders: None Ordered Radiology Orders: Name: Status: XR Chest 2 Views Completed Diagnostic Tests: None Ordered Procedure(s) and Patient Education(s) : Asthma, Adult, Wgze-nv-Zivi EMERGENCY SERVICES MEDICATION LISTLista de Medicaciones de los Servicios de Emergencia Name SANDEE NULL MRN ([facility])-[id number] PLEASE READ THE FOLLOWING REGARDING YOUR MEDICATIONS Based on the information available during your visit we have given you the medication instructions below. Continue taking medications you took prior to yourvisit unless you have been told to change. Please share this information with your own doctor. Carry a list of your medications with you in case of an emergency. Update it when medications are stopped, doses are changed, or new medications (including ofhb-kjs-rkgpywq products) are added. If you have any questions, check with your doctor. Por la informaci??n disponible fay loyola visita, las instrucciones de medicaci??n aparecen debajo. Favor de continuar tomando las medicaciones Ud. juan?? antesde loyola visita por lo menos que hay cambios. Favor de compartir esta informaci??n con loyola medico. Lleva sakina lista de medicaciones consigo por mitchell de emergenc??a. Actualiza la lista cuando Ud. aaron de nils las medicaciones, si cambian las dosis, o si hay nuevas medicaciones a??adidas (incluyendo medic aciones vendidas sin prescripci??n). Favor de preguntar a loyola medico por cualquier fransisco. THESE ARE THE MEDICATIONS YOU SHOULD BE TAKINGalbuterol (albuterol 2.5 mg/3 mL (0.083%) inhalation solution) 3 Milliliter Nebulized Medication 4 Times/Day as needed Wheezing. Refills: 0.budesonide-formoterol (Sym bicort) Inhalation Twice a day.PredniSONE (predniSONE 20 mg oral tablet) 3 PO Daily x3 Days, then 2PO Daily x3 Days, then 1 PO Daily [...] During the course of your visit, your homemedication list was updated with the most current information. The details of those changes are show n below: NEW MEDICATIONSPrinted Prescriptionsalbuterol (albuterol 2.5 mg/3 mL (0.083%) inhalation solution) 3 Milliliter Nebulized Medication 4 Times/Day as needed Wheezing. Refills: 0.Comment PredniSONE (predniSONE 20 mg oral tablet) 3 PO Daily x3 Days, then2 PO Daily x3 Days, then 1 PO Daily x3 Days. Refills: 0.Comment UPDATED MEDICATIONSNoneUNCHANGED MEDICATIONSOther Medicationsbudesonide-formoterol (Symbicort) Inhalation Twice a day.Comment STOP TAKING THESE MEDICATIONSNoneDO NOT TAKE UNTIL YOU TALK TO YOUR DOCTORNone [place] [address] [place] emergency department Department Discharge Instructions Name: SANDEE NULL GCurrent Date: 04/03/2017 23:29:29 : 1990 12:00 PM Primary Physician: Vladimir Estrada DO We would like to thank you for choosing [facility] for your emergency medical needs. We examined and treated you today on an emergency basis only. This was not a substitute for, or an effort to provide, complete medical care. In most cases, you must let your doctor (or the doctor we referred you to) check you again. Tell your doctor about any new or lasting problems. We cannotrecognize and treat all injuries or illnesses in [...] infection. Like all medications, antibiotics have side effects.Some can be serious. This includes the risk [...] the health of those around you. [facility] offers many resources to help with smoking cessation. Call the [place] Tobacco Quit Line at 7-430-HVMO-NOW ( ).High blood pressure: Your screening blood pressure today geh741 mm Hg / 92 mm Hg. Hypertension (high blood pressure) is blood pressure over 120/80. People withhypertension should contact their primary care provider within 30 days to follow up. Check your patient portal for additional blood pressure information.Immunizations:Immunization is a way to protectagainst deadly infections. Discuss this with your child's brass wind instruments tube bender, or Public Health Department. Your family practice doctor can determine if you need pneumonia or flu vaccine. The [facility] Department can be reached at [phone].Domestic Violence:If you are a victim of domestic violence (physical, verbal, or emotional), you are not alone. Discuss this with your physician ora friend and call the [place] Domestic Violence Hotline or [place] Domestic Violence Hotline for assistance and support.You are the most important factor in your recovery.Follow the provided instructions carefully. Take your medications as prescribed. Most importantly, see a doctor again as discussed. If you have problems that we have not discussed, call or visit yourdoctor right away. If you do not have [...] physician, call the Physician Referral Line at [phone] ([phone]). Suicide Hotline:Your mental and emotional well-being is important. If you are in a mental health crisis or are having thoughts of suicide, please call the nationwide suicide hotline, anytime day or night, at 7-098-708-MYNQ (7543).CommunityParamedic: You may be contacted by your local fire department for a follow up visit from a community fats and oils loader. The community fats and oils loader can help with a home safety check; follow up care, and general home care management. Pharmacy Information:Below is a list of 24 hour pharmacies that we are aware of . We suggest that you call the specific pharmacy for their hours before traveling to a location. Hours may vary on holidays. [facility] Pharmacy [facility] [place] [address], [phone], [phone] [place], [phone], [place] [address], [place] [address], [place] [address], [place] [address], [phone] [address] [place], [place] [address] [place], [place] [address] [place], [place] [address] [place], [phone] [address] [place] [phone] [address] [place] [phone] [place], [place] [address] [place], [place] Take all medications as directed. If you need prescriptionassistance, contact the following agencies:?? Partnership for Prescription Assistance at or www.pparx.org?? [facility] Best Rx at or www.[place] [facility] Redwood Citybestrx.org?? www.[employer] is asite with many valuable coupons Patient Education Materials SANDEE NULL has been given the following patient education materials: AllergyAsthma, AdultAsthma is a condition of the lungs in which the airways tighten and narrow. Asthma can make it hard to breathe. Asthma cannot be cured, but medicine and lifestyle changes can help control it. Asthma may be started (triggered) by: ???Animal skin flakes (dander).???Dust.???Cockroaches. ???Pollen.???Mold.???Sm vern.???Cleaning products.???Hair sprays or aerosol sprays.???[place] fumes or strong smells. ???Cold air, weather [...] lungs are working.???Record and keep track of thepeak flow meter's readings.???Understand and use the asthma action plan. An asthma action plan is awritten plan for taking care of your asthma [...] you are not home. Use a vacuum block cleaner with a HEPA filter if possible.???Replace [...] the medicine you are taking such as:???A rash.???Itching.???Swelling.???Trouble breathing. ???You need reliever medicines more than 2?3 times a week.???Your peak flow measurement is still at 50?79% of your personal best after following the action plan for 1 hour. ???You have a fever.GET HELP RIGHT AWAY IF:???You seem to be worse and are not responding to medicine during an asthma attack. ??? You are short of breath even at rest.???You [...] Document Reviewed: 12/02/2013[employer] Patient Education ?2016 [employer]><><><><><><><><><><><><><><><><><><><><><><><><& gt;<><><><><><><><><><><><><><><> Patient Visit Summary Signature SANDEE NULL has been given the following list of patient education materials, prescriptions and follow-up instructions: MAHSA Alarcon MARIA G, have received the above patient education materials/instructions and have verbalized understan ding: Date Time Patient Signature Date Time Provider SignatureNormalMount University Hospitals Health SystemED Physician Noteson [id number] Physician NotesPatient: SANDEE NULL MRN: ([id number] Age: 27 years Sex: Female : 1990 Associated Diagnoses: None Author: Ti Bautista History of Present Illness Thepatient is a 28-year-old female past medical history significant for asthma, right ventricular hypertrophy, congenital cardiomyopathy. Patient is in ED with complaint of shortness of breath. Patient states that it is acutely worsened within the last hour, however she has been in [place] for a business trip for several days [...] me is negative except as per history ofpresent illness. See HPI for pertinent positive and negatives.Nursing triage notes were reviewed byme. Health Status Allergies: No allergies have been recorded.. Past Medical/ Family/ Social HistoryMedical history Past Medical History Problem List Active Asthma Surgical history: No active procedure history items have been selected or recorded.. Family history: No family history items have been selected or recorded.. Social history: Social and Psychosocial NwwqhwOkfhjxz25/16/2017 Risk Assessment: Denies Alcohol UseSubstance Abuse04/03/2017 Risk [...] Scale Numeric Rating Scale-Verbal (Adults) Pain Location Site#1 Chest Pain Characteristics Site #1 Tightness Weight [...] nontender.NEUROLOGICAL: Awake, alert and oriented. Neurologically nonfocal.PSYCHOLOGICAL: Thepatient's mood and manner are appropriate. INTEGUMENTARY: Skin [...] Solu-Medrol as well as albuterol treatments in theemergency department. Chest x-rays read as negative for any acute cardiopulmonary findings no sign of pneumonia. After albuterol treatments 2 times and IM Solu-Medrol the patient felt much improved. She is no longer tachypnea, able to string several words together in a sentence, wheezing is greatlyimproved. I did discuss discharge with the patient which she is comfortable with, she is oxygenating well on room air. We'll give her a prescription for albuterol nebulizing solution as well as steroids taper for 9 days. I discussed the diagnosis treatment plan with patient, she verbalized agreement and understanding with the diagnosed treatment plan. Patient was discharged with strong return prec autions. Notes: I saw and evaluated the patient, my collaborating physician is Dr. Terry Hutchinson .The patient's old medical records have been reviewed.The patient's presenting pulse oximetry was interpreted as: normal on room air. IMPRESSION:1. Asthma exacerbation. Procedure Reexamination/ Reevaluation Basic Information Patient information:: Chief Complaint from Nursing Triage Note : Chief Complaint-Triage 04/03/2017 21:46 EST Chief Complaint-Triage Asthma Flare- up .[facility] Physician Notes PDFNormalMer[facility] Physician NotesPatient: SANDEE NULL MRN: ([id number] Age: 27 years Sex: Female : 1990 [...] her and presents with a 25 minute historyof shortness of breath, wheezing and dry cough.At my evaluation she is alert and appears moderatelydyspneic. Lungs demonstrate bilateral expiratory wheezes with prolonged expiratory phase and only fair air movement. [facility] Physician Notes PDFNormalOhiohealth Southeastern Medical CenterXR Chest 2 Viewson 50-91-1395GH Chest 2 ViewsEXAMINATION TYPE: XR Chest 2 Views DATE OF EXAM: 04/03/2017 10:26 PMHISTORY: Cough, asthma attack. Short of breath with cough. Chest tightness today, pain level = 8/10COMPARISON: NONEFindings: The lungs are clear. Heart size, mediastinum, and pulmonary vasculature are within normal limits.Impression:NegativeMssal Nappanee thanks you for the opportunity to care for your patient. Workstation ID: [id number] - [id number] FINAL REPORT Dictated By: Varinder Bartholomew MD 04/03/2017 22:30Assigned Physician: Varinder Bartholomew MD AReviewed and Electronically Signed By: Varinder Bartholomew MD 04/03/2017 22:30Transcribed by: HODA 04/03/2017 22:30Technologist: TDGNormalOhiohealth Southeastern [facility] Center Vital Signs Date TimeVital SignValuePerforming ViqrzaxvcNyqtrxfa85-88-0649 13:06-0400Body hseckf218.02 cmPHYSICIAN [facility]09[facility]26[facility] 13:06-0400Body mass index (BMI) [Ratio]53.5 kg/s4QUTHNSDUR [facility]09-26-2025 13:06-0400Body zgpdcdaiixf71.8 [degF]PHYSICIAN [facility]09-26-2025 13:06-0400Body weight 137.15 kgPHYSICIAN [facility]09-26-2025 13:06-0400Diastolic blood ehvogkxy84 mm[Hg]PHYSICIAN [facility]09-26-2025 13:06-0400Heart rate95 /minPHYSICIAN [facility]09-26-2025 13:06-0400Respiratory rate18 /min PHYSICIAN [facility]09-26-2025 13:06-8366UvS0% (BldA) [Mass fraction]98 %PHYSICIAN [facility] 02-11-2025 13:06-0400Systolic blood hbaqbehh997 mm[Hg]PHYSICIAN DAISHA [facility]01-09-2024 11:45-0500Body vicvio664.48 cmAmanda Adam Other noThe Simple Other 01-09-2024 11:45-0500Body mass index (BMI) [Ratio] 48.46 kg/u6Cukkoi Adam Other [employer] Other 01-09-2024 11:45-0500Body vptcryqezea11.1 [degF]Bessy Adam Other [employer] Other 01-09-2024 11:45-0500Body eyfhtx022.2 kgAmanda Adam Other [employer] Other 01-09-2024 11:45-0500Respiratory rate18 /minAmanda Daam Other noThe Simple Other 01-09-2024 11:45-6990SgW7% (BldA) [Mass fraction]97 % Bessy Adam Other [employer] Other 10-31-2023 11:20-0400Body wlieeflsdgs11.91 [degF]Radha Vang MD Work Phone: [facility]10-31-2023 11:20-0400Body .74 kgRadha Vang MD Work Phone: [facility]10-31-2023 11:20-0400Diastolic blood imavpciz64 mm[Hg]Radha Vang MD Work Phone: [facility]10-31-2023 11:20-0400Heart rate91 /min Radha Vang MD Work Phone: [facility]10-31-2023 11:20-0400Respiratory rate 16 /Mauro Vang MD Work Phone: [facility]10-31-2023 11:20-2650PrQ2% (BldA) [Mass fraction]98 %Radha Vang MD Work Phone: [facility]10-31-2023 11:20-0400Systolic blood hejrkqzh682 mm[Hg]Radha Vang MD Work Phone: [facility]10-25-2023 07:30-0400Body temperature 98.3 [degF]PHYSICIAN NO [facility]10-25-2023 07:30-0400Diastolic blood pxakamhi53 mm[Hg]PHYSICIAN NO [facility]10-25-2023 07:30-0400Heart rate96 /minPHYSICIAN [facility]10-25-2023 07:30-0400Respiratory rate20 /min PHYSICIAN [facility]10-25-2023 07:30-7913EnS5% (BldA) [Mass fraction]96 %PHYSICIAN [facility] 03-12-2023 07:30-0400Systolic blood ximofbis070 mm[Hg]PHYSICIAN NO [facility]10-24-2023 14:48-0400Body .56 cm PHYSICIAN [facility]10-23-2023 09:00-0400Body cocjxb398.09 kgPHYSICIAN [facility]06-03-2022 09:15-0400Body .5 Jakub Trujillo PA-C Work Phone: [facility]06-03-2022 09:15-0400Body igemdk180.73 kgErick Trujillo PA-C Work Phone: [facility]06-03-2022 09:15-0400Diastolic blood npjoxsgd11 mm[Hg]Erick Trujillo PA-C Work Phone: [facility]06-03-2022 09:15-0400Heart axyg431 /minErick Trujillo PA-C Work Phone: [facility]06-03-2022 09:15-0944GwN9% (BldA) [Mass fraction]96 %Erick Trujillo PA-C Work Phone: [facility]06-03-2022 09:15-0400Systolic blood lmelueuf896 mm[Hg]Erick Trujillo PA-C Work Phone: [facility]04-29-2022 09:15-0400Body .5 Andrei Huang MD Work Phone: [facility]04-29-2022 09:15-0400Body ieactg953.54 kgDonald Huang MD Work Phone: [facility]04-29-2022 09:15-0400Diastolic blood bkthuljk74 mm[Hg]Donald Huang MD Work Phone: [facility]04-29-2022 09:15-0400Heart rxbd995 /minDonald Huang MD Work Phone: [facility]04-29-2022 09:15-4431GvZ4% (BldA) [Mass fraction]100 %Donald Huang MD Work Phone: [facility]04-29-2022 09:15-0400Systolic blood hbraeifb712 mm[Hg]Donald Huang MD Work Phone: [facility]04-27-2022 12:30-0400Body pextqy068.5 cmPacc 3 Work Phone: [facility]04-27-2022 12:30-0400Body temperature 97.59 [degF]Pacc 3 Work Phone: [facility]04-27-2022 12:30-0400Body ubhwqi239.54 kgPacc 3 Work Phone: [facility]04-27-2022 12:30-0400Diastolic blood qusraedn78 mm[Hg]Pacc 3 Work Phone: [facility]04-27-2022 12:30-0400Heart rate98 /min Pacc 3 Work Phone: [facility]04-27-2022 12:30-0400Respiratory rate 20 /minPacc 3 Work Phone: [facility]04-27-2022 12:30-8745JbN3% (BldA) [Mass fraction]100 %Pacc 3 Work Phone: [facility]04-27-2022 12:30-0400Systolic blood wuzewykp905 mm[Hg]Pacc 3 Work Phone: [facility]04-06-2022 09:29-0400Body tbhand240.5 Andrei Huang MD Work Phone: [facility]04-06-2022 09:29-0400Body temperature 97.81 [degF]Donald Huang MD Work Phone: [facility]04-06-2022 09:29-0400Body glztui999.04 kgDonald Huang MD Work Phone: [facility]04-06-2022 09:29-0400Diastolic blood mm[Hg]Donald Huang MD Work Phone: [facility]04-06-2022 09:29-0400Heart jmbh672 /minDonald Huang MD Work Phone: [facility]04-06-2022 09:29-1784UnO1% (BldA) [Mass fraction]97 %Donald Huang MD Work Phone: [facility]04-06-2022 09:29-0400Systolic blood muufbesi215 mm[Hg]Donald Huang MD Work Phone: [facility] Encounters Encounter DateEncounter TypeCare ProviderFacilityStart: 02-13-2025 End: 25-94-0980Msujurule department patient visitCOMMUNUNIVERSITY [facility] Campustart: 02-11-2025 End: 98-23-0924vvhphosshyKEQQYEWMP NO [facility] Work Phone: Start: 02-11-2025 End: 83-28-1141Wwgeptq encounter procedureShauna Burdick NUTRITION INTERN-[facility] Work Phone: Start: 10-19-2024 End: 99-36-9938Cndjdhddr department patient visitCOMMUNITY HEALTH SERVICES [facility] HospitalStart: 03-26-2024 End: 39-99-1627Nbssnl OnlyStmaykel Baez NUTRITION INTERN.[employer]US[employer] FOLDER Work Phone: Community OutreachComment on above:Screening for cervical cancer (Primary Dx)Screening for malignant neoplasm of cervix (Primary Dx)Community Outreach ([employer])Start: 05-27-2023 End: 52-50-1436bkeoqshjmtVxrrgw Adam Other [employer] Other Start: 70-74-7892Fuuvdc outpatient visit 15 minutes Bessyjuanita SenabFPG Urgent Care ClydeStart: 07-60-7941hwopybwdcgSerufheincw Abdelaziz [facility]: 03-18-2023 End: 43-85-2487Ynkpwqm encounter procedureRadha Vang MD Work Phone: Pulmonary MedicineComment on above:Lung nodules (Primary Dx); Moderate persistent asthma without complication; BMI 50.0-59.9, adult (HCC); Patient non adherence; Nodule of left lung; 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)Start: 03-10-2023 End: 02-23-4777Fgmqbaupsj and management of inpatientPHYSICIAN NO [facility] Work Phone: Start: 10-19-2021 End: 43-49-5661Wyzihko encounter procedureErick Trujillo PA-C Work Phone: CardiothoracicComment on above:Left lower lobe pulmonary nodule (Primary Dx)Start: 34-05-3160Wfihks Max Scott PA-C Work Phone: CardiothoracicComment on above:Acute post-operative pain (Primary Dx)Start: 77-13-8847xkuimmcsthIekqggi Wudel MD Work Phone: Thoracic SurgeryComment on above:Final Pathology ReportStart: 90-59-6898G-mail encounter from caregiverDonald Huang MD Work Phone: [facility]ITALStart: 09-21-2021 End: 49-74-7731kzhfgmjzeyLHBHTN [facility] COMMUNITYFacility:B7Kmlau: 09-19-2021 Orders Nicola Huang MD Work Phone: oracic SurgeryComment on above:Lung nodule (Primary Dx)Status post lung surgery (Primary Dx)Start: 09-14-2021 End: 25-33-7898Biyytro encounter procedureDonald Huang MD Work Phone: oracic SurgeryComment on above:Lung nodule (Primary Dx)Start: 09-12-2021 End: 25-90-6905NTGCnui [facility] 3 Work Phone: Pre AnesthesiaComment on above:Pre-op evaluation (Primary Dx); Lung nodule; Migraine without status migrainosus, not intractable, unspecified migraine type; Uncomplicated asthma, unspecified asthma severity, unspecified whether persistent; Former smoker; Class 3 severe obesity due to excess calories without serious comorbidity with body mass index (BMI) of 50.0 to 59.9 in adult ([facility]); BMI 50.0-59.9, adult ([facility]); PTSD (post-traumatic stress disorder); Bipolar 1 disorder ([facility]); SmokerStart: 09-12-2021 End: 72-66-8353Rhbywhuzgjnqg examination donePa 3 Work Phone: pre AnesthesiaStart: 09-11-2021 End: 23-17-6488zhlrziaxnoNves 2 Work Phone: Pulmonary MedicineComment on above:SpirometryStart: 09-11-2021 End: 02-64-1035Qvkptph encounter procedurePulm Lab Fhc Rej 2 Work Phone: WILFREDO HERNANDEZ FHCStart: 09-11-2021 End: 63-27-1831Xrkefdp encounter statusPulm 2 Work Phone: Pulmonary MedicineStart: 43-47-2665jufrsdxydfZkzrnhx Wudel MD Work Phone: Thoracic SurgeryStart: 41-34-2824Vwojems encounter statusDonald Huang MD Work Phone: oracic SurgeryStart: 08-22-2021 End: 84-97-9162Troipfb encounter procedureLeyue Huang MD Work Phone: oracic SurgeryComment on above:Lung nodule (Primary Dx)Start: 84-77-3460Piqkkyxab encounterHannah [facility] Comment on above:Patient UpdateResultsStart: 08-13-2021 End: 46-50-4277Fstptveovs hospital visit by physicianPet Injection Ct Mobile 2 Radiology Pet CTComment on above:Primary malignant neoplasm (HCC) [C80.1]Start: 12-95-3569Mmyaijfzm for other preprocedural examinationDR FACUNDO FAZIFeliciae Linneus HospitalStart: 79-98-9350qxwzkzelxbZZ FACUNDO FAZIOFacility:B4Bvkjp: 43-42-4448lsbtcittslLJ FACUNDO FAZIOFacility:E1Zosms: 06-01-2021 End: 17-66-0479mkkljewoznNL FACUNDO FAZIOFacility:M4Xiuwl: 06-01-2021 End: 51-40-9221Fjoqtsxav for other preprocedural examinationDR FACUNDO BLAISE Facility:D9Ltmpm: 02-16-2021 End: 71-61-4196ndidzzcwbvGT FACUNDO FAZIOFacility:C3Nqfpw: 12-28-2020 End: 64-85-6768etfyjwxpfzLNIPJD RODRIGUEZFacility:T7Bkqnt: 62-48-2921dtbrrlinpu DR FACUNDO FAZIOFacility:N7Jkxxa: 04-03-2017 End: 58-78-4842Yvuxmrsgq department patient visitDAHALLEY ESTRADA [facility]Start: 03-04-2017 End: 02-27-0388LankxmnjlbTQZTJGV PHYSICIANFacility:[facility] Procedures DateProcedureProcedure DetailPerforming ClinicianStart: 38-68-4640Ro diffusing capacityLeyue Huang MD Work Phone: Start: 55-58-8037Knm imaging ct attenuation skull base mid-thighRadha Vang MD Work Phone: H/O: surgeryStatus post lung surgeryDonald Huang MD Work Phone: Plan of Treatment DateCare ActivityDetailAuthorStart: 81-57-5343Oocmb microalbumin profile [facility]: 74-28-8119Mtlnkcucf for malignant neoplasm of cervix Cervical Cancer ScreeningLutheran Hospitaltart: 01-94-4850Yivfc-19 Vaccine ( season)Covid-19 Vaccine ( season)[facility]: 32-72-0801Qhuoyiqfz vaccinationInfluenza Vaccine (#1)[facility]: 52-71-4662SwoypunheUniversity Hospitals Geauga Medical Centertart: 54-68-8653Cxwxrsvb [facility] Hospitalt[facility]: 31-53-9324Aniwv-19 Vaccine ( season)Covid-19 Vaccine ( season)[facility]: 01-17-2023 Influenza vaccinationINFLUENZA (#1)[facility]: 51-83-7734AQUCDEYPVO ASSESSMENTDEPRESSION ASSESSMENTLutheran Hospitaltart: 26-71-4063FRP TESTINGHPV TESTINGLutheran Hospitaltart: 54-87-0214Uwazcpbod vaccinationINFLUENZA (Season Ended)[facility]: 09-11-2021 End: 67-74-2451xIGK in Platelet poor plasma by Coagulation assayACTIVATED PTT Lab STAT Preoperative testing Expected: 09/11/2021 (Approximate), Expires: 08/28/2022[facility] Work Phone: Comment on above:Expected: 09/11/2021 (Approximate), Expires: 08/28/2022Start: 09-11-2021 End: 08-30-8388LUH W Auto Differential panel - BloodCBC + DIFF Lab STAT Preoperative testing Expected: 09/11/2021 (Approximate), Expires: 08/28/2022 [facility] Work Phone: Comment on above:Expected: 09/11/2021 (Approximate), Expires: 08/28/2022Start: 09-11-2021 End: 63-17-4013Fudcvkfdmumvp metabolic 2000 panel - Serum or PlasmaCOMP METABOLIC PANEL Lab STAT Preoperative testing Expected: 09/11/2021 (Approximate), Expires: 08/28/2022[facility] Work Phone: Comment on above:Expected: 09/11/2021 (Approximate), Expires: 08/28/2022Start: 09-11-2021 End: 40-19-1763UXLODPO BLOOD TYPECONFIRM BLOOD TYPE Blood Bank Routine Preoperative testing Expected: 09/11/2021 (Approximate), Expires: 08/28/2022 [facility] Work Phone: Comment on above:Expected: 09/11/2021 (Approximate), Expires: 08/28/2022Start: 09-11-2021 End: 21-67-5380TEJ COMPLETEECG COMPLETE ECG Routine Preoperative testing Expected: 09/11/2021 (Approximate), Expires: 08/28/2022[facility] Work Phone: Comment on above:Expected: 09/11/2021 (Approximate), Expires: 08/28/2022Start: 09-11-2021 End: 42-38-8581NR panel - Platelet poor plasma by Coagulation assayPROTHROMBIN TIME/PT Lab STAT Preoperative testing Expected: 09/11/2021 (Approximate), Expires: 08/28/2022[facility] Work Phone: Comment on above:Expected: 09/11/2021 (Approximate), Expires: 08/28/2022Start: 09-11-2021 End: 82-90-4875KBLS AND SCREEN,30 DAYTYPE AND SCREEN,30 DAY Blood Bank Routine Preoperative testing Expected: 09/11/2021 (Approximate), Expires: 11/11/2021 [facility] Work Phone: Comment on above:Expected: 09/11/2021 (Approximate), Expires: 11/11/2021tart: 09-11-2021 End: 00-57-0507TGGTTCRSCK, DIPSTICK ONLYURINALYSIS, DIPSTICK ONLY Lab STAT Preoperative testing Expected: 09/11/2021 (Approximate), Expires: 08/28/2022 [facility] Work Phone: Comment on above:Expected: 09/11/2021 (Approximate), Expires: 08/28/2022Start: 08-28-2021 End: 47-49-0247QRNC-CoV-2 (COVID-19) RNA [Presence] in Respiratory specimen by SULLY with probe detectionPRE-PROCEDURE & PRE-OPERATIVE COVID Microbiology Routine Preoperative testing Expected: 08/28/2021, Expires: 08/28/2022[facility] Work Phone: Comment on above:Expected: 08/28/2021, Expires: 08/28/2022Start: 87-66-8323EUMZU-19 VACCINE (4 - Moderna series)COVID-19 VACCINE (4 - Moderna series)[facility]: 74-93-4112Bihnfzlcm vaccination INFLUENZA (#1)[facility]: 73-19-7017QRJ TESTINGPAP TESTINGLutheran Hospitaltart: 82-57-1397Omgikwxao for malignant neoplasm of cervixCervical Cancer ScreeningLutheran Hospitaltart: 22-21-6128Wxicp microalbumin profile DTAP,TDAP,TD (1 - Tdap)[facility]: 60-75-7624FWWJDB PCP TEAM CHRONIC DISEASE VISITANNUAL PCP TEAM CHRONIC DISEASE VISITLutheran Hospitaltart: 69-61-2377Ocvkgsyidc ScreeningDepression ScreeningCleMercy Health Defiance Hospitaltart: 97-83-3696HSJFIUPCD C SCREENINGHEPATITIS C SCREENINGCleMercy Health Defiance Hospitaltart: 13-19-5075Pwsrqbhfe C screeningHepatitis C ScreeningLutheran Hospitaltart: 05-12-8650ZOT SCREENINGHIV SCREENINGLutheran Hospitaltart: 83-35-5561QEL screeningHIV ScreeningLutheran Hospitaltart: 85-70-4621Isrix depression screening assessmentDEPRESSION SCREENINGLutheran Hospitaltart: 02-03-1998 PNEUMOCOCCAL (1 - PCV)PNEUMOCOCCAL (1 - PCV)[facility]: 02-03-1998 Pneumococcal vaccinationAs[facility] End: 79-48-7051Sb thorax w/o contrast materialCT CHEST WO IVCON Radiology Routine Lung nodules 1 Occurrences starting 03/18/2023 until [facility] Work Phone: Comment on above:1 Occurrences starting 03/18/2023 until 04/16/2024 End: 33-36-5096MAOU DIFFUSION CAPACITY (DLCO)LUNG DIFFUSION CAPACITY (DLCO) PFT Routine Preoperative testing 1 Occurrences starting 08/28/2021 until 09/27/2022 [facility] Work Phone: Comment on above:1 Occurrences starting 08/28/2021 until 09/27/2022LUNG DIFFUSION CAPACITY (DLCO)LUNG DIFFUSION CAPACITY (DLCO) PFT Routine Preoperative testing 09/11/2021 2:21 PM EDTCAshtabula [facility] Work Phone: pap TESTPAP TEST Lab Routine Screening for cervical cancer 03/26/2024 3:39 PM [facility] Work Phone: Patient EducationDepression, Adult (DC) Bipolar Disorder (DC) Suicide Prevention [facility] DC InstructionsRiverview Health Institute Ctr Work Phone: [facility] referralRiverside Methodist Hospital Work Phone: Pulmonary rehabilitation proPULMONARY REHABILITATION PRO Procedures Routine Status post lung surgery Or[facility]: [facility] Work Phone: Comment on above:Ordered: 09/19/2021 End: 06-88-3289Rnscuzpflw exam chest 2 viewsXR CHEST 2V FRONTAL/LAT Radiology Routine Lung nodule 1 Occurrences starting 09/19/2021 until 3C[facility] Work Phone: Comment on above:1 Occurrences starting 09/19/2021 until 10/19/2022 End: 62-77-8516YHTIVBRFJO BASELINE ONLYSPIROMETRY BASELINE ONLY PFT Routine Preoperative testing 1 Occurrences starting 08/28/2021 until 09/27/2022[facility] Work Phone: Comment on above:1 Occurrences starting 08/28/2021 until 09/27/2022[facility] Immunizations Immunization DateImmunizationNotesCare HwezykreKncoxwha57-05-6733haihxlrem, injectable, quadrivalent, preservative freePHYSICIAN NO [facility]10-24-2023influenza virus vaccine, unspecified formulationShenri Baez APRN.CNP Work Phone: [facility] CenterLnjomk55-02-9175bxbcdqr toxoid, reduced diphtheria toxoid, and acellular pertussis vaccine, adsorbedDonald Huang MD Work Phone: [facility] CenterJwxchl36-84-0273tltntjygx, injectable, quadrivalent, preservative freeDonald Huang MD Work Phone: [facility] CenterXcboxb51-43-0191cywmpwzwa, injectable, quadrivalent, preservative Faiza Huang MD Work Phone: [facility] CenterVngomn63-35-0642dpeklei, mumps and rubella virus Leah Huang MD Work Phone: [facility] CenterMrntaj57-27-8878eysdcpu, mumps and rubella virus Leah Huang MD Work Phone: [facility] CenterHfgfob44-85-3628nphptnj toxoid, adsorbed Donald Huang MD Work Phone: [facility] CenterGpefck19-82-4841ujjrmxfuui, tetanus toxoids and acellular pertussis vaccine, unspecified formulationDonald Huang MD Work Phone: [facility] CenterJgpdnb14-53-3984vzgktdobu B vaccine, pediatric or pediatric/adolescent dosageDonald Huang MD Work Phone: [facility] CenterMrgtlo21-37-1541jmprzgx, mumps and rubella virus vaccineDonald Huang MD Work Phone: [facility] CenterUzzduj04-13-3266gpypjjbbhm vaccine, unspecified formulationDonald Huang MD Work Phone: [facility] CenterYgpjif43-78-3202cptswltslm, tetanus toxoids and acellular pertussis vaccine, unspecified formulationDonald Huang MD Work Phone: [facility] CenterAgksgz71-16-4769alwktvlte B vaccine, pediatric or pediatric/adolescent dosageDonald Huang MD Work Phone: [facility] CenterJvplte57-81-7112xprhrlpxpnr influenzae type b vaccine, conjugate unspecified formulationDonald Huang MD Work Phone: [facility] CenterIuixjq18-32-2012pbomwnbne B vaccine, pediatric or pediatric/adolescent dosageDonald Huang MD Work Phone: [facility] CenterTnvpzk66-44-3396nctvzdj, mumps and rubella virus vaccineDonald Huang MD Work Phone: [facility] CenterQqlgaw02-77-5481ykbkciuwxj vaccine, unspecified formulationDonald Huang MD Work Phone: [facility] CenterLdygja58-68-9046zejqguqqhg, tetanus toxoids and acellular pertussis vaccine, unspecified formulationDonald Huang MD Work Phone: [facility] CenterDdtycv01-35-2729oecuvgnwmmp influenzae type b vaccine, conjugate unspecified formulationDonald Huang MD Work Phone: [facility] CenterPmcfuc96-31-6957aosnkxnujd vaccine, unspecified formulationDonald Huang MD Work Phone: [facility] CenterTarojl98-15-9332oswcfknfty, tetanus toxoids and acellular pertussis vaccine, unspecified formulationDonald Huang MD Work Phone: [facility] CenterJxpsoz70-34-2497vcvfmtmgvqz influenzae type b vaccine, conjugate unspecified formulationDonald Huang MD Work Phone: [facility] CenterUuzwnh10-15-4869eizmogycls vaccine, unspecified formulationDonald Huang MD Work Phone: [facility] Payers DatePayer CategoryPayerPolicy [id number]-[id number] [id number] 2020MedicaidCARESOURCE MEDICAID CARESOURCE MEDICAID [id number] 2019-Present [phone] [address] [place] [address] [id number] [id number] [id number] [id number]. [id number] 2.840.1.022471.3.57[id number] 2.16.840.1.971528.3.57[id number] 2.16.840.1.631049.3.57[id number] 2..840.1.837425.3.57[id number] 2.16.840.1.053719.3.57[id number] 2.16840.1.693595.3.57[id number] 2.16840.1.179107.3.579.2.459422-95-6648Pnsh-[id number] [id number] Health InsuranceAetna Insurance [id number] [facility] [id number] 2.16.840.1.1[id number] 2..840.1.388327.3.579.2.531 Social History DateTypeDetailFacilityStart: 04-04-2020 End: 40-70-6671Mwcrmyd smoking status NHISEx-smokerLutheran Hospitaltart: 03-10-2023 End: 68-89-5699Anvdyga of tobacco useCurrent smokerAshtabula [facility] Medical Center End: 45-48-3093Adgzxwg of tobacco useCigarette SmokerLutheran Hospitaltart: 04-04-2020 End: 91-39-9152Mpvoxtswuv smoked current (pack per day) - Mimsrcme0Okfvhldrg ClinicStart: 04-04-2020 End: 98-71-9949Dtwqbcx use and exposureSmokeless tobacco non-userLutheran Hospitaltart: 95-96-2481Pfz Assigned At BirthFemaleCMarietta Osteopathic Clinictart: 08-12-2021 End: 09-65-8162Uvcwwmzz to SARS-CoV-2 (event)Not sureLutheran Hospitaltart: 57-77-3171Dpomoou smoking status NHISSmokes tobacco dailyLutheran Hospitaltart: 09-12-2021 End: 35-13-7632Uxnveyy intakeEx-drinker (finding)[facility]: 04-04-2020 End: 74-07-7603Jwlftky use panelAshtabula County Medical CenterNatformerly [facility] Score (1-100), lower number is lower riskNot on fileLutheran Hospitaltart: 19-40-3091Xdzqbw identity Identifies as female gender (finding)[facility]: 14-84-4449Ytfyvg orientationChoose not to discloseLutheran HospitalexFemale (finding)[facility] Goals DatePatient GoalDesired Activity/State Functional Status WfepHeyxkylwbyGztikrMqcvnlfr16-33-8577Kaqdkijyga statusPatient at Baseline [facility] Work Phone: Mental Status ErljXysdzpgialQlqfyjVlperwsi85-61-1215Xknumjzcj functionCognitive Status Patient at BaselineRiverview Health Institute Ctr Work Phone: Clinical Notes 08-13-2021 to 04-09-2024 Note Date & QsuhOllsRzmigyve91-51-3104 NoteHNO ID: [id number] Author: MOUNA ARTHUR MA Service: ? Author Type: Mother Tester Type: Progress Notes Filed: 04/09/2024 12:32 Note Text: [facility] OUTREACH Provider Action/FYI Pap/HPV screening completed at the [employer] screening event on 03/26/2024. Pap Results: Interpretation Negative for intraepithelial lesion or malignancy. HPV Results: High Risk HPV Type 16 DNA Not detected High Risk HPV Type 18 DNA Not detected High Risk HPV Other Type DNA Not detected Patient notified of results. Mouna Arthur [facility]11-22-2024 History of Present illness Narrative* Mouna Arthur MA - 04/09/2024 12:30 PM EST [facility] Provider Action/FYI Pap/HPV screening completed at the [employer] screening event on 03/26/2024. Pap Results: Interpretation Negative for intraepithelial lesion or malignancy. HPV Results: High Risk HPV Type 16 DNA Not detected High Risk HPV Type 18 DNA Not detected High Risk HPV Other Type DNA Not detected Patient notified of results. Mouna Arthur MA documented in this encounterAshtabula County Medical Center11-09-2024 NoteHNO ID: [id number] Author: YASMIN BAEZ APRN.CNP Service: ? Author Type: Nurse Practitioner Type: Progress Notes Filed: 03/27/2024 19:15 Note Text: Specimen was collected by a licensed professional volunteer provider. The sensitive examination was discussed with the Patient or Patient's Authorized Compliance Associate. As applicable, any other physician, advance practice provider, medical student, or other health professional student that will be observing or involved in the sensitive examination for educational or training purposes was discussed with the Patient or Authorized Compliance Associate. The Patient or Authorized Compliance Associate has agreed to proceed with the sensitive examination. (Sensitive examination includes inspection and/or palpation of the breasts, pelvis, prostate and anorectal regions) Patient was seen for cervical cancer screening. [facility] on March 26 2024. Yasmin Baez APRN.CNPGlenbeigh Hospital11-09-2024 History of Present illness Narrative* Yasmin Baez APRN.CNP - 03/27/2024 7:14 PM EST Specimen was collected by a licensed professional volunteer provider. The sensitive examination was discussed with the Patient or Patient's Authorized Compliance Associate. Asapplicable, any other physician, advance practice provider, medical student, or other health professional student that will be observing or involved in the sensitive examination for educational or training purposes was discussed with the Patient or Authorized Compliance Associate. The Patient or Authorized Compliance Associate has agreed to proceed with the sensitive examination. (Sensitive examination includes inspection and/or palpation of the breasts, pelvis, prostate and anorectal regions) Patient was seen for cervical cancer screening. [facility] on March 26 2024. Yasmin Baez APRN.CNP documented in this encounterAshtabula County Medical Center11-08-2024 NotePatient Outreach ([place]) SANDEE NULL ([id number]) 1990 F Date Time Provider Department 03/26/24 MOUNA ARTHUR During your visit today, we recorded the following information about you: Mouna Arthur MA 04/09/2024 12:32 PM Signed [facility] Provider Action/FYI Pap/HPV screening completed at the [facility] screening event on 03/26/2024. Pap Results: Interpretation [...] Reason for Visit: Community Outreach [Other] Cmt: GetAFive Prescriptions as of 04/09/2024 - citalopram hydrobromide [...] 09/18/2021 Encounter Status:Closed by MOUNA ARTHUR on 04/09/24[facility] 05-27-2023 Evaluation note* Encounter Date Diagnosis Assessment Notes Treatment Notes Treatment Clinical Notes May, Paronychia of finger of right [place] (ICD-10 - L03.011) Soak the infected finger in warm water and use warm compresses. You are being prescribe an oral antibiotic, Keflex, to take 3 x day for 5 days for the acute infection as you state topical antibioticshave not been helping. Take the antibiotic until [...] for the infection. She is to follow upwith her PCP, apply warm compresses or warm soaks of the finger. T-Quad 22 Other 10-31-2023 Instructions* Patient Instructions* Radha Vang MD - 03/18/2023 11:48 AM EDT Please take the symbicort inhaler two puffs twice daily. Take albuterol as needed. Radha Vang MD With questions or concerns, please call the following: [place] [facility] [phone] Press Option #2 for pulmonary office documented in this encounterAshtabula [facility] Center10-31-2023 History of Present illness Narrative* [...] 18, 2023 TIME: 11:33 AM PAGER/CONTACT #: [phone] documented in this encounterAshtabula County Medical Center10-25-2023 Discharge summary Author Hardy iglesias [facility] March 12, 2023 7:44amNote Date/TimeOct2022 7:41amChristopher [place] [id number] Discharge Summary Signed Patient: Sandee Null MR#: [id number] : 1990 Acct:[id number] Age/Sex: 33 / F Adm Date: 3 Loc: Room: [address] [place] [address]: Jus Santos MD Copies to: [...] the encounter. I reviewed the history and performedthe jones elements of the assessment. I formulated [...] therapy services available whileon the unit and wasencouraged to participate.She has not been compliant with her medications and wanted to get back [place]. Psychotropic medications targeting mood and anxiety were [...] one who is going through depression. She saidthe unit is a good place to recover [...] patientthat her discharge from the hospital does notmean that her medical care ends here. She [...] self harm or thoughts of harm to others,the patient was not to harm them self or stop treatment, but to call [facility], 911 or come to the nearest emergency room. The patient also received information regarding advanced mental and medic al health directives during this hospitalization to discuss [...] limiting the number of medications to a 15- day supply with one refill at the time [...] impulsivity, agitation, or psychotic behavior. Pt is future-oriented and understands the importance of outpatient follow-up. [...] follow-up to have somewhere to go and someoneto manage her assymptoms and stressors develop. This is the best way to keep her alive. So, we discussed a crisis plan for future suicidality: at the first sign of distress, she will call the hotline; if this is not sufficient, she will 911, then call family members or friends; ultimately, she willcome to the ER. Safety: The patient is [...] notify her psychiatrist if she becomes due tothe risk of harm to the fetus. Avoid [...] Instructions: Important Contact Information You can call [facility] at [phone] any timeday or night if you have emergent questions or question regarding discharge instructions. If at anytime you are feeling an increase inyour psychiatric symptoms, call your physician or behavioral healthcare provider. If any time you have thoughts of harming yourself or others contact one of the following: Call 9-8-8 (available 09/12) Crisis Text Line (available 09/12) text 4HOPE to [phone] [facility] (available 8 a.m. Midnight) call [phone] ([phone]) Prescriptions: New trazodone 50 mg Tablet 50 [...] Health Services [Other] (Sees Dr. Doris Edmondson.) [facility] - [facility] [Outside] (Wants counseling at [facility].) Wiliam Olivares, PHOTOGRAPHER'S ASSISTANT- [Referring] - (Call your primary provider with any medical needs. ) Documented By: Hardy Jones MD 3 0740 Signed By: <Electronically signed by Hardy Jones MD> 03/12/23 0744 [facility] Work Phone: 1(474) 806-458510-25-2023 Hospital Discharge instructions Additional Instructions Important Contact Information You can call [facility] at [phone] any time day or night if you have emergent questions or question regarding discharge instructions. If at any time you are feeling an increase in your psychiatric symptoms, call your physician or behavioral healthcare provider. If any time you have thoughts of harming yourself or others contact one of the following: Call 98-8 (available 09/12) Crisis Text Line (available 09/12) text 4HOPE to [phone] [facility] (available 8 a.m. Midnight) call [phone] ([phone]) Regular Diet No [facility] Work Phone: 1(415) 828-803210-24-2023 Progress note Author Hardy iglesias [facility] March 11, 2023 10:45amNote Date/TimeOctober 2022 8:58am[place] [address] Psychiatry Progress Note Signed Patient: Sandee Null MR#: [id number] : 1990 Acct:[id number] Age/Sex: 33 / F Adm Date: 3 Loc: Room: [address] [place] [address] Type : ADM IN Attending Dr: Jus [...] the encounter. I reviewed the history and performedthe jones elements of the assessment. I formulated the planof care and confirmed this with the medical student as noted below Patient said mood is improving. She states she was able to sleep well last night. She does complainof abdominal pain for which she was given [...] mg p.o. Patient reported a prior positive responseto Lamictal. Recommend attending groups and psychoeducation for [...] signed by Hardy Jones MD> 03/11/23 1045 [facility] Work Phone: 1(177) 857-939110-23-2023 History and physical note Author Hardy iglesias [facility] March 10, 2023 1:17pmNote Date/TimeOct2022 8:25amB[place] [address] Psychiatry H&P Signed Patient: Sandee Null MR#: [id number] : 1990 Acct:[id number] Age/Sex: 33 / F Adm Date: 3 Loc: Room: [address] [place] [address] Type: ADM IN Attending Dr: Jus Santos [...] the encounter. I reviewed the history and performedthe jones elements of the assessment. I formulated [...] Denies hallucinations Insight: fair Judgment: fair [facility] Medical History (Updated 03/10/23 @ 08:28 [...] p.o. Patient reported a prior positive response toLamictal. Recommend attending groups and psychoeducation for building [...] 3 0759 Signed By: <Electronically signed by Hrady Jones MD> 03/10/23 1317 [facility] Work Phone: 1(885) 686-902406-03-2022 History of Present illness Narrative* Erick Trujillo [...] Surgery PRN Erick Trujillo PA-C Thoracic Surgery [id number] DATE: October 19, 2021 TIME: 9:34 AM documented in this encounterAshtabula County Medical Center05-07-2022 Miscellaneous Notes* Telephone Encounter - Donald Huang MD - 09/22/2021 4:48 PM EDT Patient called asking for narcotic pain medication. She did not take any home with her at discharge. Pain has increased today. I sent in a prescription for oxycodone 5 mg q 6 hrs prn (#28). documented in this encounterAshtabula County Medical Center05-04-2022 NoteHNO ID: [id number] Author: Misa Carrasco (Director Nurses' Registry) Service: Pharmacy Author Type: ? Type: Plan [...] or your Primary Care Provider. Misa Carrasco (Director Nurses' Registry) PAGER: [phone] September 19, 2021 5:07 [facility]05-04-2022 NoteHNO ID: [id number] Author: Beena Brumfield RPh Service: Pharmacy Author Type: Pharmacist Type: Plan of Care Filed: 09/19/2021 4:59 PM Note Text: PHARMACY MEDICATION REVIEW Patient Name: Sandee Null : 1990 The following medications were updated within the [employer] medication list: Medications ADDED to [employer] medication list ? none Medications CHANGED on [employer] medication list ? Symbicort - Pt reports using BID. Medications REMOVED from [employer] medication list ? Spiriva - Pt reports not taking Additional comments: See below. Pt reports adherence to all medications except Spiriva. Pt states that the powder in the inhaler makes her gag, so decided to discontinue. not aware. Pt also reports needing a refill on Symbicort. The below information represents the best possible medication history: Yes Medication history completed by: student life vice president: Fariba Benoit Source of history: Patient: Reliability of source: Appears reliable, clearly identified: Medication name, Medication dose, Medication route and Medication frequency and Pharmacy records: Surescripts. Medication nonadherence identified: No barriers noted Reconciliation completed: Yes All [employer] medications addressed by LIP Patient interested in Bedside Delivery Services or using OP Pharmacy at discharge? Yes. Discharge Pharmacy Updated Preferred outpatient pharmacy: [facility] Allergies: Latex Rash Levofloxacin Other: See [...] on 09/14/2021 Facility-Administered Medications: None Fariba Benoit, Shipping Clerk Packing September 19, 2021 10:48 AM Addendum The medication history completed by the science writer has been reviewed; patient's prior to admission medication list has been updated. Changes and additions to the details in the above note are indicated by and italics. Beena Brumfield PharmD, formerly [facility] September 19, 2021 4:59 [facility]05-04-2022 NoteHNO ID: [id number] Author: Rob Scott PA-C Service: Cardiac Surgery Author Type: Physician Nature Photographer Type: Procedures Filed: 09/19/2021 9:12 AM Note [...] on dressing - Well-tolerated, no complications ALEXIA [facility]05-03-2022 NoteHNO ID: [id number] Author: Pj Rendon DO Service: Anesthesiology Author [...] September 18, 2021 TIME: 8:59 AM CSN: [id number] NoteHNO ID: [id number] Author: Pj Rendon DO Service: Anesthesiology Author [...] September 18, 2021 TIME: 8:58 AM CSN: [id number] NoteHNO ID: [id number] Author: Pj Rendon DO Service: Anesthesiology Author Type: Resident Type: Anesthesia Procedure Notes Filed: 09/18/2021 8:55 AM Note Text: ANESTHESIOLOGY PROCEDURE NOTE Airway General Information Procedure Start Time/Medication Administration: 09/18/2021 8:01 AM Patient location during procedure: OR Timeout Performed Pre-procedure: timeout performed Consent Obtained: Yes 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, 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 Staffing Anesthesiologist: Eliezer [...] September 18, 2021 TIME: 8:54 AM CSN: [id number] NoteHNO ID: [id number] Author: Noel Grover DO Service: Anesthesiology Author Type: Anesthesiologist Type: Anesthesia Procedure Notes Filed: 09/18/2021 7:24 AM Note Text: ANESTHESIOLOGY PROCEDURE NOTE Peripheral Nerve Block General Information Procedure Start Time/Medication Administration: 09/18/2021 7:09 AM Procedure End time: 09/18/2021 7:14 AM Patient location during procedure: pre-op Timeout Performed Pre-procedure: timeout performed Consent Obtained: Yes 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 documented in this encounterAshtabula County Medical Center04-29-2022 History of Present illness Narrative* [...] left majorfissure on a chest CT in [facility] in 09/2015. She was unaware that she [...] patient's available diagnotic studies, including: P[facility] [address] [facility] [place] [address] Test Date: 2021-09-11 Pat Name: SANDEE NULL Department: Room: Gender: Female [facility]: : 1990 Requested By: Order Number: [id number] Reading MD: Interpretive Statements ATS/ERS acceptability and repeatability standards for spirometry met. ATS/ERS acceptability and repeatability standards for DLCO met. DLCO is not hemoglobin corrected. //RK IMPRESSION: Site: AV ID: [id number] Name: SANDEE NULL Visit Date: 09/11/2021 Doctor: [facility]: Milvia Holliday Age: 31 Date of : [...] FEF75 (L/sec) 1.51 0.79 2.63 0.95 63 TBG24-36 (L/sec) 3.50 2.26 4.93 2.27 64 PEF [...] major fissure on a chest CT in [facility] in 09/2015. She was unaware that she [...] have been signed and are in the [facility] EMR. The patient's operation is scheduled [...] hesitate to contact me. documented in this encounterAshtabula County Medical Center04-27-2022 History of Past illness Narrative* ProblemNoted DateResolved DateFormer ydajsz62 Bipolar 1 tfldiwxw55ocumented as of this encounter (statuses as of 09/12/2021) [address]27-2022 History of Past illness Narrative* ProblemNoted Date Resolved DateFormer /27/2Bipolar 1 /27/2022 2documented as of this encounter (statuses as of 09/14/2021) [address]27-2022 History of Past illness Narrative* ProblemNoted Date Resolved DateFormer awcmul40/27//2Bipolar 1 nadfdkmg27/27/2022 2documented as of this encounter (statuses as of 09/19/2021) [place] [address]22 History of Past illness Narrative* ProblemNoted Date Resolved DateFormer bkoxyp04/27//2Bipolar 1 knnsbtib39/27/2022 2documented as of this encounter (statuses as of 09/21/2021) [place] [address]22 History of Past illness Narrative* ProblemNoted Date Resolved DateFormer /27//2Bipolar 1 xjhikfjk94/27/2022 2documented as of this encounter (statuses as of 09/22/2021) [address]27-2022 History of Past illness Narrative* ProblemNoted Date Resolved DateFormer utloiu062Bipolar 1 sllpyiei87/27/2022 2documented as of this encounter (statuses as of 10/19/2021) [facility]04-27-20[facility] History of Past illness Narrative* ProblemNoted Date Diagnosed DateResolved DateFormer stxsta52/2Bipolar 1 disorder 2documented as of this encounter (statuses as of 03/18/2023) [facility]04-27-2022 Instructions* Patient Instructions* Geovanna Dickinson APRN.GUSSET FOLDER - 09/12/2021 12:36 PM EDT PATIENT PREOPERATIVE INSTRUCTIONS Dr Donald Huang has scheduled you for your procedure at this surgery center: [facility]: [phone] --[id number] [place] [address]. Please check in on thet floor at registration desk 6. Please read [...] Procedures: - YOU MUST HAVE A RESPONSIBLE FACULTY CRIMINAL JUSTICE TAKE YOU HOME. A RETAIL POS SPECIALIST OR MAILING SECTION CLERK CANNOT BE MADE A RESPONSIBLE FACULTY CRIMINAL JUSTICE. - We recommend that a responsible person [...] Advance Directive, please fax a copy to [phone] or email to for it to be [...] your chart that day. documented in this encounterAshtabula County Medical Center04-27-2022 History and physical note * [...] famotidine (PEPCID) 10 mg tablet 20 mg. Uwsnqrfd-Zg-Sjs-Fe-FA tab Take 1 tablet by mouth. promethazine (PHENERGAN) 12.5 mg tablet Take 12.5 mg by mouth three times daily as needed. tiotropium (SPIRIVA WITH HANDIHALER) 18 mcg inhalation capsule Inhale 1 capsule as instructed once daily. Use with HandiHaler. Medication Comments documented by Geovanna Dickinson APRN.GUSSET FOLDER on 09/12/2021 at 0909. Pepcid if normally [...] or incontinence,, stones or chronic kidney disease DOMESTIC MAID: Negative for abnormal vaginal bleeding, abnormal vaginal [...] 2021 TIME: 12:28 PM documented in this encounterAshtabula County Medical Center04-26-2022 History of Present illness Narrative* Milvia Holliday RRT - 09/11/2021 2:42 PM EDT PULM FUNCTION SMARTBLOCK: Provider: Donald Huang MD Assisting Tech: Milvia Holliday RRT Spirometry: 1 DLCO: 1 System: [id number] documented in this encounterAshtabula County Medical Center04-06-2022 NoteHNO ID: [id number] Author: Donald Huang MD Service: ? Author [...] major fissure on a chest CT in [facility] in 09/2015. She was unaware that she [...] mg intramuscularly at bedtime as needed. - Syxohjdl-If-Kgf-Fe-FA tab Take 1 tablet by mouth. - [...] lower leg: No vincent (more content not included)...[facility] 08-22-2021 Instructions* Patient Instructions* Destiny Huang - 08/22/2021 9:38 AM EDT Please call us with how you would like to proceed. documented in this encounterAshtabula County Medical Center04-06-2022 History of Present illness Narrative* [...] left majorfissure on a chest CT in [facility] in 09/2015. She was unaware that she [...] 0.3 mg intramuscularly at bedtime as needed. Kxuxgbqz-Ke-Tlm-Fe-FA tab Take 1 tablet by mouth. promethazine [...] DATE OF EXAM: Apr 05 2021 11:52AM [facility] 0541 - CT CHEST WO IVCON [...] upper abdomen appear unremarkable. No adrenal mass. [employer] (topogram) images: No additional findings. Spirometry 04/04/20: [facility] [address] [place] [address] Test Date: 2020-04-04 Pat Name: SANDEE NULL Department: Room: Gender: Female [facility]: Gypsy RazaEmilie : 1990 Requested By: Order Number: [id number] Reading MD: Tamar Sims MD Interpretive Statements [...] 103 89.0 FIVC L 4.23 4.32 2.0 MGO02-17% L/s 2.08 2.31 3.55 4.99 58.5 3.39 95.3 62.9 UKC519% sec 12.32 9.33 -24.3 FETPEF sec 0.06 [...] values for spirometry are those of Martinez et al (Martinez GLI 2012): Respiratory Journal 2012; 40: 0087-4618, 2012. Tech Comment: IMPRESSIONS: Sandee Null is a very pleasant 31-year old female who is a former 10+ pack year smoker and who has severe asthma. She was found to have a 4 mm left lower lobe lung nodule near the left major fissure on a chest CT in [facility] in 09/2015. She was unaware that she [...] hesitate to contact me. documented in this encounterAshtabula County Medical Center03-30-2022 Miscellaneous Notes* Telephone Encounter - Radha Vang MD - 08/15/2021 1:12 PM EDT Discussed with Ms. Null that IR does not think that this nodule is easily reachable by IR. Shestill wants to a surgeon about possible excision of nodule. I will place a referral to thoracic surgery. documented in this encounterAshtabula County Medical Center03-30-2022 Miscellaneous Notes* Telephone Encounter - Hannah Myers RN - 08/15/2021 9:[address] Vang paged to notify of lung biopsy request denial. Per Dr. Mena, Unable to get to it dueto location. Call back number and physician name provided in page. documented in this encounterAshtabula County Medical Center03-28-2022 History of Present illness Narrative* Kalyn Phillips, RT(R) - 08/13/2021 10:00 AM EDT RADIOLOGY [...] 1015 PATIENT DISCHARGED TO: Ambulatory patient, left [place] department area. A Diagnostic radioactive procedure has taken place, with no further precautions necessary other than routine body substance precautions. More information regarding radiation safety can be found usingthis link: [email or web address] SIGNATURE: BOLIVAR Rodriguez) PATIENT NAME: Sandee Null DATE: August 13, 2021 TIME: 10:23 AM PAGER/CONTACT #: [facility]* Diagnosis Nodule of left lung- Primary Solitary pulmonary nodule documented in this encounter [facility] note* Diagnosis Lung nodule- Primary Solitary pulmonary nodule documented in this encounter [facility] note* Diagnosis Preoperative testing- Primary Preoperative examination, unspecified Lung nodule Solitary pulmonary nodule Lung nodule Solitary pulmonary nodule documented in this encounter [facility] note* Diagnosis Preoperative testing Preoperative examination, unspecified Lung nodule Solitary pulmonary nodule documented in this encounter [facility] note* Diagnosis Preoperative testing Preoperative examination, unspecified Lung nodule Solitary pulmonary nodule [facility] Pre-op evaluation- Primary Preoperative examination, unspecified Lung nodule Solitary pulmonary nodule Migraine without status migrainosus, not intractable, unspecified migraine type Uncomplicated asthma, unspecified asthma severity, unspecified whether persistent Former smoker Personal history of tobacco use, presenting hazards to health Class 3 severe obesity due to excess calories without serious comorbidity with body mass index (BMI) of 50.0 to 59.9 in adult ([facility]) BMI 50.0-59.9, adult ([facility]) Body Mass Index 50.0-59.9, adult PTSD (post-traumatic stress disorder) Posttraumatic stress disorder Bipolar 1 disorder ([facility]) Bipolar I disorder, most recent episode (or current) unspecified Smoker Tobacco use disorder Lung nodule Solitary pulmonary nodule [facility] Diagnosis Lung nodule- Primary Solitary pulmonary nodule Lung nodule Solitary pulmonary nodule [facility]* Diagnosis Lung nodule- Primary Solitary pulmonary nodule [facility]* Diagnosis Status post lung surgery- Primary Other postprocedural status documented in this encounter [facility]* Diagnosis Acute post-operative pain- Primary [facility]* Diagnosis Acute post-operative pain [facility]* Diagnosis Left lower lobe pulmonary nodule- Primary documented in this encounter [facility]* Diagnosis Primary malignant neoplasm (HCC) Other malignant neoplasm without specification of site documented in this encounter [facility] note* Diagnosis Onset Date Resolution Status Bipolar disorder acuteMajor depressive disorderacuteSuicidal ideationDayton [facility] Work Phone: Evaluation note* Diagnosis Lung nodules- Primary Other nonspecific abnormal finding of lung field Moderate persistent asthma without complication Unspecified asthma BMI 50.0-59.9, adult ([facility]) Body Mass Index 50.0-59.9, adult Patient non adherence Personal history of noncompliance with medical treatment, presenting hazards to health Nodule of left lung Solitary pulmonary nodule 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 ([facility]) documented [facility] encounter [facility]* Diagnosis Pre-op evaluation- Primary Preoperative examination, [...] of the cervix documented in this encounter [facility] note* Diagnosis Pre-op evaluation- Primary Preoperative [...] of the cervix documented in this encounter [facility] noteNo assessment information availableKettering [facility] Work Phone: History general Narrative - Reported* Type Description Date Medical History asthma Medical HistoryPTSDMedical HistorydepressionMedical Historyanxiety Hospitalization HistorydehydrationHospitalization Historychild [employer] Other Reason for referral (narrative)* Outpatient Procedure (Routine) - Pending ReviewSpecialtyDiagnoses / ProceduresReferred By [facility] Diagnoses Preoperative testing Procedures ECG COMPLETE ECG ROUTINE ECG W/LEAST 12 LDS W/I&[place] [address] [place] [address] Heart [facility] [place] [facility] [place] [address] Referral IDStatusReasonStart DateExpiration DateVisits RequestedVisits [id number] Review Auto-Generated Referral * Outpatient Procedure (Routine) - Pending ReviewSpecialtyDiagnoses / Procedures Referred By ContactReferred To [facility] [place] Diagnoses Preoperative testing Procedures SPIROMETRY BASELINE ONLY SPMTRY W/VC EXPIRATORY AYAKA W/[place] [address] [place] [id number] Respiratory [address] [address] Referral IDStatusReasonStart DateExpiration DateVisits RequestedVisits [id number] Review Auto-Generated Referral * Outpatient Procedure (Routine) - Pending ReviewSpecialtyDiagnoses / Procedures Referred By ContactReferred To [facility] [place] Diagnoses Preoperative testing Procedures LUNG DIFFUSION CAPACITY (DLCO) [place] [address] [place] [id number] [place] [id number] Referral IDStatusSheaasonStart DateExpiration DateVisits RequestedVisits [id number] Review Auto-Generated Referral [facility] for referral (narrative)* Diagnostic Procedure Only (Routine) - ClosedSpecialtyDiagnoses / ProceduresReferred By ContactReferred To ContactMOLECULAR & FUNCTIONAL IMAGING Diagnoses Primary malignant neoplasm (HCC) Procedures NM PET/CT SKULL-THIGH INITIAL TUMOR IMAGING PET W/[place] [address] [place] [address] Molecular & Functional Imaging [address] [place] [address] Referral IDStatusReasonStart DateExpiration DateVisits RequestedVisits [id number] Auto-Generated Referral [facility] (narrative)No reason for referral information availableK[facility]tering [facility] Work Phone: Reason for visit Narrative* Diagnostic Procedure Only (Routine) - ClosedSpecialtyDiagnoses / ProceduresReferred By ContactReferred To ContactMOLECULAR & FUNCTIONAL IMAGING Diagnoses Primary malignant neoplasm (HCC) Procedures NM PET/CT SKULL-THIGH INITIAL TUMOR IMAGING PET W/[place] [address] [place] [address] Molecular & Functional Imaging [address] [place] [address] Referral IDStatusReasonStart DateExpiration DateVisits RequestedVisits [id number] Auto-Generated Referral [facility] Summary Purpose Family History No Family History Records Found Relationship Condition Age at Onset Recorded Date/T nydia brother Family history of mental disorder Unknown fatherSuicideUnknownDeceasedUnknownmotherFamily history of mental disorder UnknownBipolar disorderUnknown Advance Directives No Advanced Directives Records FoundDocuments on File TypeDate RecordedPatient RepresentativeExplanationAdvance Directive(s)07/24/2019 10:21 PMTypeDate RecordedPatient RepresentativeExplanationAdvance Directive(s) 07/24/2019 10:21 PMTypeDate RecordedPatient RepresentativeExplanationAdvance Directive(s)08/31/2021 4:56 PMAdvance Directive(s)07/24/2019 10:21 PMCode Status Date ActivatedDate InactivatedCommentsFull Code09/18/2021 1:00 PMFull Code Order Discussed With:PatientCode StatusDate ActivatedDate InactivatedCommentsFull Code 09/18/2021 1:00 PM09/19/2021 6:37 PMCode StatusDate ActivatedDate Inactivated CommentsFull Code09/18/2021 1:00 PM09/19/2021 6:37 PMQuestionAnswerCommentsFull Code Order Discussed With:Patient Advance Directive Response Recorded Date/ Time Advance Directives No September 12, 2 018 11:56am Date ActivatedDate InactivatedComments09/18/2021 1:00 PM09/19/2021 6:37 PMQuestion AnswerCommentsFull Code Order Discussed With:* Patient Reason for Referral SpecialtyDiagnoses / ProceduresReferred By ContactReferred To Contact Diagnoses Nodule of left lung Procedures CONSULT TO CARDIOTHORACIC SURGERY Radha Vang MD [address] [place] [address] Referral IDStatusReasonStart DateExpiration DateVisits RequestedVisits [id number] Not Required PCP Requested Referral [id number] / ProceduresReferred By ContactReferred To Contact Radha Vang MD [address] [place] [address] Referral IDStatusReasonStart DateExpiration DateVisits RequestedVisits [id number] / ProceduresReferred By Contact Referred To ContactCT IMAGING Diagnoses Lung nodules Procedures CT CHEST WO IVCON DIAGNOSTIC COMPUTED TOMOGRAPHY THORAX W/O CNTRST Radha Vang MD [address] [place] [address] Ct [facility] [place] [address] Referral IDStatusReasonStart DateExpiration DateVisits RequestedVisits [id number] Auto-Generated Referral / Chief Complaint and Reason for Visit Chief Complaint Suicidal Ideation Reason for Visit Bipolar disorder Major depressive disorder Suicidal ideations Chief Complaint Admit Date Cough, congestion February 11, 2 025 12:45pm Additional Source Comments INFORMATION SOURCE (unrecogn ized section and content) DATE CREATED AUTHOR 11/11/2017 [facility] DATE CREATED AUTHOR AUTHOR'S ORGANIZ ATION 11/11/2017 [facility] DATE CREATED AUTHOR AUTHOR'S ORGANIZ ATION 04/14/2020 [facility] DATE CREATED AUTHOR AUTHOR'S ORGANIZ ATION 04/22/2020 [facility] DATE CREATED AUTHOR AUTHOR'S ORGANIZ ATION 08/16/2021 [facility] DATE CREATED AUTHOR AUTHOR'S ORGANIZ ATION 09/22/2021 [facility] DATE CREATED AUTHOR AUTHOR'S ORGANIZ ATION 09/24/2021 [facility] DATE CREATED AUTHOR AUTHOR'S ORGANIZ ATION 02/14/2024 [facility] DATE CREATED AUTHOR AUTHOR'S ORGANIZ ATION 04/12/2024 [facility] DATE CREATED AUTHOR AUTHOR'S ORGANIZ ATION 02/19/2025 [facility] Source Comments (unrecognize d section and content) In the event this informatio n is protected by the Federal Confidentiality of Alcohol and Drug Abuse Patient Records regulations: The Federal rules restrict any use of the information to criminally investigate or prosecute any alcohol or drug abuse patient.[facility] CenterIn the event this information is protected by the Federal Confidentiality of Alcohol and Drug Abuse Patient Records regulations: The Federal rules restrict any use of the information to criminally investigate or prosecute any alcohol or drug abuse patient.[facility] CenterIn the event this information is protected by the Federal Confidentiality of Alcohol and Drug Abuse Patient Records regulations: The Federal rules restrict any use of the information to criminally investigate or prosecute any alcohol or drug abuse patient.[facility] CenterIn the event this information is protected by the Federal Confidentiality of Alcohol and Drug Abuse Patient Records regulations: The Federal rules restrict any use of the information to criminally investigate or prosecute any alcohol or drug abuse patient.[facility] CenterIn the event this information is protected by the Federal Confidentiality of Alcohol and Drug Abuse Patient Records regulations: The Federal rules restrict any use of the information to criminally investigate or prosecute any alcohol or drug abuse patient.[facility] CenterIn the event this information is protected by the Federal Confidentiality of Alcohol and Drug Abuse Patient Records regulations: The Federal rules restrict any use of the information to criminally investigate or prosecute any alcohol or drug abuse patient.[facility] CenterIn the event this information is protected by the Federal Confidentiality of Alcohol and Drug Abuse Patient Records regulations: The Federal rules restrict any use of the information to criminally investigate or prosecute any alcohol or drug abuse patient.[facility] CenterIn the event this information is protected by the Federal Confidentiality of Alcohol and Drug Abuse Patient Records regulations: The Federal rules restrict any use of the information to criminally investigate or prosecute any alcohol or drug abuse patient.[facility] CenterIn the event this information is protected by the Federal Confidentiality of Alcohol and Drug Abuse Patient Records regulations: The Federal rules restrict any use of the information to criminally investigate or prosecute any alcohol or drug abuse patient.[facility] CenterIn the event this information is protected by the Federal Confidentiality of Alcohol and Drug Abuse Patient Records regulations: The Federal rules restrict any use of the information to criminally investigate or prosecute any alcohol or drug abuse patient.[facility] CenterIn the event this information is protected by the Federal Confidentiality of Alcohol and Drug Abuse Patient Records regulations: The Federal rules restrict any use of the information to criminally investigate or prosecute any alcohol or drug abuse patient.[facility] CenterIn the event this information is protected by the Federal Confidentiality of Alcohol and Drug Abuse Patient Records regulations: The Federal rules restrict any use of the information to criminally investigate or prosecute any alcohol or drug abuse patient.[facility] CenterIn the event this information is protected by the Federal Confidentiality of Alcohol and Drug Abuse Patient Records regulations: The Federal rules restrict any use of the information to criminally investigate or prosecute any alcohol or drug abuse patient.[facility] CenterIn the event this information is protected by the Federal Confidentiality of Alcohol and Drug Abuse Patient Records regulations: The Federal rules restrict any use of the information to criminally investigate or prosecute any alcohol or drug abuse patient.[facility] CenterIn the event this information is protected by the Federal Confidentiality of Alcohol and Drug Abuse Patient Records regulations: The Federal rules restrict any use of the information to criminally investigate or prosecute any alcohol or drug abuse patient.[facility] CenterIn the event this information is protected by the Federal Confidentiality of Alcohol and Drug Abuse Patient Records regulations: The Federal rules restrict any use of the information to criminally investigate or prosecute any alcohol or drug abuse patient.[facility] CenterIn the event this information is protected by the Federal Confidentiality of Alcohol and Drug Abuse Patient Records regulations: The Federal rules restrict any use of the information to criminally investigate or prosecute any alcohol or drug abuse patient.[facility] CenterIn the event this information is protected by the Federal Confidentiality of Alcohol and Drug Abuse Patient Records regulations: The Federal rules restrict any use of the information to criminally investigate or prosecute any alcohol or drug abuse patient.[facility] CenterIn the event this information is protected by the Federal Confidentiality of Alcohol and Drug Abuse Patient Records regulations: The Federal rules restrict any use of the information to criminally investigate or prosecute any alcohol or drug abuse patient.[facility] CenterIn the event this information is protected by the Federal Confidentiality of Alcohol and Drug Abuse Patient Records regulations: The Federal rules restrict any use of the information to criminally investigate or prosecute any alcohol or drug abuse patient.[facility] Reason for Visit (unrecogniz ed section and content) ReasonCommentsPatient UpdateReasonCommentsResultsReasonCommentsNew PatientReason CommentsSpirometrySpecialtyDiagnoses / ProceduresReferred By ContactReferred To ContactG[facility] Diagnoses Preoperative testing Procedures SPIROMETRY BASELINE ONLY SPMTRY W/VC EXPIRATORY AYAKA W/[place] [address] [place] [address] Respiratory [place] [address] [place] [address] Referral IDStatusReasonStart DateExpiration DateVisits RequestedVisits [id number] Auto-Generated Referral [id number] / ProceduresReferred By ContactReferred To ContactGILA [facility] Diagnoses Preoperative testing Procedures LUNG DIFFUSION CAPACITY (DLCO) [place] [address] [place] [address] Respiratory [place] [address] [place] [address] Referral IDStatusReasonStart DateExpiration DateVisits RequestedVisits [id number] Auto-Generated Referral [id number]r PatientSign consent surgery 09/18/[address] HuangReasonCommentsPost Op4 week CXR prior Surgery with Dr. Huang 09/18/21ReasonCommentsRadiology NMSpecialtyDiagnoses / ProceduresReferred By ContactReferred To ContactMOLECULAR & FUNCTIONAL IMAGING Diagnoses Primary malignant neoplasm (HCC) Procedures NM PET/CT SKULL-THIGH INITIAL TUMOR IMAGING PET W/CON[place] [address] [place] [address] Molecular & Functional Imaging [address] [place] [address] Referral IDStatusReasonStart DateExpiration DateVisits RequestedVisits [id number] Auto-Generated Referral [id number]eOumga DateCommentsCommunity Iysagkcm43/08/2024[employer] Care Teams (unrecognized sec tion and content) Team MemberRelationshipSpecialtyStart [place] [address] [place] [address] ReferringPulmonary and Critical Care Medicine08/15/21Team MemberRelationship SpecialtyStart [place] [address] [place] [address] ReferringPulmonary and Critical Care Medicine08/15/21Team MemberRelationship SpecialtyStart [place] [address] [place], [place] [id number] ReferringPulmonary and Critical Care Medicine08/15/21Team MemberRelationship SpecialtyStart DateEnd Date Qasim Daley MD [address] [place] [address] PCP - GeneralInternal Medicine08/31/21 [place] [address] [place] [address] ReferringPulmonary and Critical Care Medicine08/15/21Team MemberRelationship SpecialtyStart DateEnd Date Qasim Daley MD [address] [place] [address] PCP - GeneralInternal Medicine08/31/21 [place] [address] [place] [address] ReferringPulmonary and Critical Care Medicine08/15/21Team MemberRelationship SpecialtyStart DateEnd Date Qasim Daley MD [address] [place] [address] PCP - GeneralInternal Medicine08/31/21 [place] [address] [place] [address] ReferringPulmonary and Critical Care Medicine08/15/21Team MemberRelationship SpecialtyStart DateEnd Date Qasim Daley MD [address] [place] [address] PCP - GeneralInternal Medicine08/31/21 [place] [address] [place] [address] ReferringPulmonary and Critical Care Medicine08/15/21Team MemberRelationship SpecialtyStart DateEnd Qasim Daley MD [address] [place] [address] PCP - GeneralInternal Medicine08/31/21 [place] [address] [place] [address] ReferringPulmonary and Critical Care Medicine08/15/21Team MemberRelationship SpecialtyStart DateEnd Qasim Daley MD [address] [place] [address] PCP - GeneralInternal Medicine08/31/21 [place] [address] [place] [address] ReferringPulmonary and Critical Care Medicine08/15/21Team MemberRelationship SpecialtyStart DateEnd Qasim Daley MD [address] [place] [address] PCP - GeneralInternal Medicine08/31/21 [place] [address] [place] [address] ReferringPulmonary and Critical Care Medicine08/15/21Team MemberRelationship SpecialtyStart End Qasim Daley MD [address] [place] [address] PCP - GeneralInternal Medicine08/31/21 [place] [address] [place] [address] ReferringPulmonary and Critical Care Medicine08/15/21 Team Status: Active Member Role Status Dates PHYSICIAN NO FAMILY Primary Care Provider Active Team Status: Inactive Member Role Status Dates PHYSICIAN NO FAMILY Primary Care Provider Active Maggi Lawrence Provider, Attending ProviderActiveTeam Member RelationshipSpecialty[place] [address] [place] [id number] PCP - GeneralInternal Medicine08/31/21 [place] [address] [place] [address] ReferringPulmonary and Critical Care Medicine08/15/21Team MemberRelationship SpecialtyStart [place] [address] [place] [address] PCP - GeneralInternal Medicine08/31/21 [place] [address] [place] [phone] ReferringPulmonary and Critical Care Medicine08/15/21Team MemberRelationship SpecialtyStart [place] [address] [place] [address] PCP - GeneralInternal Medicine08/31/21 [place] [address] [place] [phone] ReferringPulmonary and Critical Care Medicine08/15/21Team MemberRelationship SpecialtyStart [place] [address] [place] [address] PCP - GeneralInternal Medicine08/31/21 [place] [address] [place] [address] ReferringPulmonary and Critical Care Medicine08/15/21 Team Status: Inactive Member Role Status Dates PHYSICIAN NO FAMILY Primary Care Provider Active Start: February 11, 2025 End: February 11, 2025Beau Villalobos ProviderActiveStart: February 11, 2025 End: February 11, 2025 Goals (unrecognized section and content) Goals may be documented in a n alternate section FOR RECORDS PERTAINING TO PATIENTS WHO ARE [...] BE BASED ON THE PRIMARY CLINICAL RECORDS. [employer] provides no warranty or guarantee of the accuracy or completeness of information in this document.
[2025-03-08] MEDS: ALBUTEROL SULFATE 2.5 MG/3 ML VIAL NEB IH (14:26)
[2025-03-08 14:27] VITALS: PULSE 100
== END 2025-03-08 15:33 | disposition home or self-care (01) ==
PROVIDERS: Emergency Provider Emergency Medicine
DX: J45.41 Moderate persistent asthma with (acute) exacerbation (principal); J06.9 Acute upper respiratory infection, unspecified; R05.9 Cough, unspecified; R51.9 Headache, unspecified; F17.200 Nicotine dependence, unspecified, uncomplicated
CPT/HCPCS: 71046; 94640; 99283; J7512